=== PATIENT | male | born 1940 | race Caucasian/White ===

== ENCOUNTER 2016-03-09 14:20 | Inpatient (IN) ==
[2016-03-09] MEDS ORDERED: ROCEPHIN 1 GM in SODIUM CHLORIDE 50 ML IV STA (14:31)
[2016-03-09] MEDS ORDERED: ZITHROMAX 500 MG in SODIUM CHLORIDE 250 ML IV STA (14:31)
[2016-03-09 14:35] LABS: ABG PCO2 30.5 mmHg (35-45); ABG PH 7.467 (7.35-7.45)
[2016-03-09 14:36] LABS: ABG BASE EXCESS -2 (-2.0-2.0); ABG HCO3 22.1 (22.0-26.0); ABG TCO2 23 (22.0-28.0)
[2016-03-09] MEDS ORDERED: DUONEB NEB ONE (14:39)
[2016-03-09] MEDS: SODIUM CHLORIDE 1,000 ML IV SCH (14:50)
[2016-03-09] MEDS ORDERED: SOLU-CORTEF 250 MG IVP STA (14:51)
[2016-03-09 14:55] LABS: HEMATOCRIT 47.1 % (42.0-52.0); HEMOGLOBIN 15.6 g/dl (14.0-18.0); MEAN CORPUSCULAR HEMOGLOBIN 27.5 pg (27.0-31.0); MEAN CORPUSCULAR HGB CONC 33.1 (31.8-35.4); MEAN CORPUSCULAR VOLUME 82.9 fl (80.0-94.0); RED BLOOD COUNT 5.68 10^6/ul (4.70-6.10); WHITE BLOOD COUNT 17.04 K/ul (4.2-10.2)
[2016-03-09] MEDS ORDERED: ZOFRAN 4 MG/2 ML IVP PRN (15:12)
[2016-03-09] MEDS ORDERED: MORPHINE 2 MG/ML SYRINGE IVP PRN (15:12)
[2016-03-09 15:19] LABS: ALBUMIN 3.6 g/dL (3.4-5.0); ALBUMIN/GLOBULIN RATIO 1.06; ANION GAP 15.7; BILIRUBIN,TOTAL 0.68 mg/dL (0.00-1.20); BUN/CREATININE RATIO 23.63; CREATININE 1.1 mg/dL (0.60-1.10); POTASSIUM 3.7 mmol/L (3.5-5.1)
[2016-03-09] MEDS: SOLU-MEDROL 125 MG IVP SCH ×2 (15:24→22:24)
[2016-03-09 15:30] LABS: ABG BASE EXCESS -1 (-2.0-2.0); ABG HCO3 23.6 (22.0-26.0); ABG PCO2 36.8 mmHg (35-45); ABG PH 7.415 (7.35-7.45); ABG TCO2 25 (22.0-28.0)
[2016-03-09] MEDS: DUONEB NEB SCH ×3 (15:47→22:23)
[2016-03-09 15:51] VITALS: BMI 24.6
--- NOTE | 2016-03-09 16:39 | CT ---
EXAM: CT THORAX HISTORY: Hypoxemia, shortness of breath. TECHNIQUE: CT thorax without intravenous contrast. 5-mm axial sections. Coronal and sagittal re-fo rmations. COMPARISON: 11/15/2015 FINDINGS: Heart size is within normal limits. There is mild to moderate atherosclerotic disease. Scattered m ediastinal lymph nodes most which are calcified. Moderately severe emphysema. Severe basilar fibrosis with bronchiectasis. There has been an increas e in density in the lower lung zones posteriorly suggesting superimposed pneumonia. The aforemention ed right upper lobe ground-glass nodule is less distinct with no solid nature currently seen. Middl e lobe consolidation remains present without noticeable change. No acute bony abnormality IMPRESSION: Severe emphysema and fibrosis are redemonstrated. Increased density in the bases when c ompared to prior suggesting superimposed pneumonia. Persistent right middle lobe consolidation.
[2016-03-09 16:46] LABS: FLU INTERNAL QC INTERNAL QC VALID; RAPID FLU A NEGATIVE (NEGATIVE); RAPID FLU B NEGATIVE (NEGATIVE)
[2016-03-09 17:24] LABS: BILIRUBIN,URINE Negative (NEGATIVE); KETONES,URINE 1+ (NEGATIVE); LEUKOCYTE ESTERASE ,URINE Negative (NEGATIVE); NITRITE,URINE Negative (NEGATIVE); PH,URINE 5.5 (5-9); PROTEIN,URINE Negative (NEGATIVE); URINE, BLOOD Negative (NEGATIVE)
[2016-03-09 17:26] LABS: ADD URINE MICROSCOPIC NO
[2016-03-09] MEDS: PROTONIX IV 40 MG in SODIUM CHLORIDE 100 ML IV SCH (19:03)
[2016-03-09] MEDS: ASPIRIN EC PO SCH (21:40)
[2016-03-09] MEDS: CATAPRES PO SCH (21:40)
[2016-03-09] MEDS: NORVASC PO SCH (21:40)
[2016-03-09] MEDS: ALLEGRA PO SCH (21:40)
[2016-03-10] MEDS: DUONEB NEB SCH ×6 (02:13→23:20)
[2016-03-10] MEDS: LASIX TAB PO SCH (05:41)
[2016-03-10] MEDS: PROTONIX PO SCH (05:41)
[2016-03-10] MEDS: SOLU-MEDROL 125 MG IVP SCH ×3 (05:41→20:48)
[2016-03-10 06:41] LABS: ABG BASE EXCESS -6 (-2.0-2.0); ABG HCO3 19.1 (22.0-26.0); ABG PCO2 33.6 mmHg (35-45); ABG PH 7.363 (7.35-7.45); ABG TCO2 20 (22.0-28.0)
[2016-03-10] MEDS: XANAX PO SCH ×2 (08:21→12:38)
[2016-03-10] MEDS: BENICAR PO SCH (08:57)
[2016-03-10] MEDS: ALLEGRA PO SCH (08:57)
[2016-03-10] MEDS: LEXAPRO PO SCH (08:57)
[2016-03-10] MEDS: CATAPRES PO SCH ×2 (08:58→20:48)
[2016-03-10] MEDS: NORVASC PO SCH ×2 (08:58→20:48)
[2016-03-10] MEDS: MIRALAX PO SCH (08:59)
[2016-03-10] MEDS: PROTONIX IV 40 MG in SODIUM CHLORIDE 100 ML IV SCH (08:59)
[2016-03-10] MEDS ORDERED: [UNRECOGNIZED DRUG - REMARK] PO SCH (09:00)
[2016-03-10] MEDS ORDERED: NON-FORMULARY MEDICATION (Olmesartan Medoxomil [Benicar] 40 MG) PO SCH ×22 (09:00)
[2016-03-10] MEDS ORDERED: NON-FORMULARY MEDICATION (Esomeprazole Magnesium [Nexium] 40 MG) PO SCH ×22 (09:00)
[2016-03-10] MEDS: ROCEPHIN 1 GM in SODIUM CHLORIDE 50 ML IV SCH (10:38)
[2016-03-10] MEDS: SPIRIVA IH SCH (10:38)
[2016-03-10] MEDS: ZITHROMAX 500 MG in SODIUM CHLORIDE 250 ML IV SCH (11:50)
[2016-03-10 12:27] LABS: BASOPHILS % (AUTO) 0.1 % (0.0-3.0); HEMATOCRIT 41.3 % (42.0-52.0); HEMOGLOBIN 13.5 g/dl (14.0-18.0); IMMATURE GRANULOCYTE % (AUTO) 0.6 % (0.0-5.0); LYMPHOCYTES # (AUTO) 0.3 K/uL (0.60-3.4); LYMPHOCYTES % (AUTO) 2.3 (10.0-50.0); MEAN CORPUSCULAR HEMOGLOBIN 27.4 pg (27.0-31.0); MEAN CORPUSCULAR HGB CONC 32.7 (31.8-35.4); MEAN CORPUSCULAR VOLUME 83.9 fl (80.0-94.0); MONOCYTES # (AUTO) 0.3 K/uL (0.4-2.0); NEUTROPHILS # (AUTO) 13.5 K/ul (2.0-6.9); PLATELET COUNT 169 10^3/uL (140-440); RED BLOOD COUNT 4.92 10^6/ul (4.70-6.10); WHITE BLOOD COUNT 14.17 K/ul (4.2-10.2)
[2016-03-10 12:45] LABS: ALBUMIN/GLOBULIN RATIO 0.94; ANION GAP 16.9; BILIRUBIN,TOTAL 0.33 mg/dL (0.00-1.20); BUN/CREATININE RATIO 23.66; CALCIUM 8.6 mg/dL (8.2-10.2); CREATININE 1.31 mg/dL (0.60-1.10); POTASSIUM 3.9 mmol/L (3.5-5.1); TOTAL PROTEIN 6.2 g/dL (5.8-8.1)
[2016-03-10] MEDS: NON-FORMULARY MEDICATION (Fluticasone/Vilanterol [Breo Ellipta 100-25 Mcg Inh] 1 PUFF) IH SCH (13:59)
[2016-03-10] MEDS: SODIUM CHLORIDE 1,000 ML IV SCH (17:36)
[2016-03-10] MEDS: ASPIRIN EC PO SCH (20:48)
[2016-03-11] MEDS: DUONEB NEB SCH ×6 (02:30→22:43)
[2016-03-11] MEDS: SOLU-MEDROL 125 MG IVP SCH ×3 (06:21→20:14)
[2016-03-11] MEDS: LASIX TAB PO SCH (06:22)
[2016-03-11] MEDS: PROTONIX PO SCH (06:22)
[2016-03-11 06:40] LABS: BASOPHILS % (AUTO) 0.1 % (0.0-3.0); HEMOGLOBIN 13.2 g/dl (14.0-18.0); IMMATURE GRANULOCYTE % (AUTO) 0.8 % (0.0-5.0); LYMPHOCYTES # (AUTO) 0.6 K/uL (0.60-3.4); LYMPHOCYTES % (AUTO) 3.1 (10.0-50.0); MEAN CORPUSCULAR HEMOGLOBIN 27.4 pg (27.0-31.0); MEAN CORPUSCULAR VOLUME 83.2 fl (80.0-94.0); MONOCYTES # (AUTO) 0.5 K/uL (0.4-2.0); MONOCYTES % (AUTO) 2.7 (0-10); NEUTROPHILS # (AUTO) 16.5 K/ul (2.0-6.9); NEUTROPHILS % (AUTO) 93.3; PLATELET COUNT 186 10^3/uL (140-440); RED BLOOD COUNT 4.81 10^6/ul (4.70-6.10); WHITE BLOOD COUNT 17.67 K/ul (4.2-10.2)
[2016-03-11 07:08] LABS: ALBUMIN/GLOBULIN RATIO 0.97; ANION GAP 13.2; BILIRUBIN,TOTAL 0.37 mg/dL (0.00-1.20); BUN/CREATININE RATIO 23.07; CALCIUM 8.8 mg/dL (8.2-10.2); CREATININE 1.17 mg/dL (0.60-1.10); POTASSIUM 4.2 mmol/L (3.5-5.1); TOTAL PROTEIN 6.1 g/dL (5.8-8.1)
[2016-03-11] MEDS: MIRALAX PO SCH (08:15)
[2016-03-11] MEDS: LEXAPRO PO SCH (09:39)
[2016-03-11] MEDS: BENICAR PO SCH (09:39)
[2016-03-11] MEDS: NORVASC PO SCH ×2 (09:39→20:14)
[2016-03-11] MEDS: CATAPRES PO SCH ×2 (09:39→20:15)
[2016-03-11] MEDS: XANAX PO SCH ×2 (09:39→12:54)
[2016-03-11] MEDS: ROCEPHIN 1 GM in SODIUM CHLORIDE 50 ML IV SCH (09:40)
[2016-03-11] MEDS: SPIRIVA IH SCH (09:40)
[2016-03-11] MEDS: NON-FORMULARY MEDICATION (Fluticasone/Vilanterol [Breo Ellipta 100-25 Mcg Inh] 1 PUFF) IH SCH ×2 (09:40→16:35)
[2016-03-11] MEDS: PROTONIX IV 40 MG in SODIUM CHLORIDE 100 ML IV SCH (10:29)
[2016-03-11] MEDS: ZITHROMAX 500 MG in SODIUM CHLORIDE 250 ML IV SCH (11:41)
[2016-03-11] MEDS: SODIUM CHLORIDE 1,000 ML IV SCH (15:46)
[2016-03-11] MEDS: ASPIRIN EC PO SCH (20:16)
[2016-03-12] MEDS: DUONEB NEB SCH ×6 (02:35→21:00)
[2016-03-12 04:48] LABS: BASOPHILS % (AUTO) 0.1 % (0.0-3.0); HEMATOCRIT 38.4 % (42.0-52.0); HEMOGLOBIN 12.7 g/dl (14.0-18.0); IMMATURE GRANULOCYTE % (AUTO) 0.6 % (0.0-5.0); LYMPHOCYTES # (AUTO) 0.4 K/uL (0.60-3.4); LYMPHOCYTES % (AUTO) 3.1 (10.0-50.0); MEAN CORPUSCULAR HEMOGLOBIN 27.7 pg (27.0-31.0); MEAN CORPUSCULAR HGB CONC 33.1 (31.8-35.4); MEAN CORPUSCULAR VOLUME 83.7 fl (80.0-94.0); MONOCYTES # (AUTO) 0.4 K/uL (0.4-2.0); MONOCYTES % (AUTO) 2.5 (0-10); NEUTROPHILS % (AUTO) 93.7; PLATELET COUNT 168 10^3/uL (140-440); RED BLOOD COUNT 4.59 10^6/ul (4.70-6.10); WHITE BLOOD COUNT 13.87 K/ul (4.2-10.2)
[2016-03-12 05:11] LABS: ALBUMIN 2.7 g/dL (3.4-5.0); ANION GAP 11.6; BILIRUBIN,TOTAL 0.36 mg/dL (0.00-1.20); BUN/CREATININE RATIO 25.74; CALCIUM 8.7 mg/dL (8.2-10.2); CREATININE 1.01 mg/dL (0.60-1.10); POTASSIUM 4.6 mmol/L (3.5-5.1); TOTAL PROTEIN 5.4 g/dL (5.8-8.1)
[2016-03-12] MEDS: SOLU-MEDROL 125 MG IVP SCH ×3 (05:39→21:32)
[2016-03-12] MEDS: PROTONIX PO SCH (05:39)
[2016-03-12] MEDS: LASIX TAB PO SCH (05:39)
[2016-03-12] MEDS: PROTONIX IV 40 MG in SODIUM CHLORIDE 100 ML IV SCH (08:15)
[2016-03-12] MEDS: LEXAPRO PO SCH (08:16)
[2016-03-12] MEDS: BENICAR PO SCH (08:16)
[2016-03-12] MEDS: MIRALAX PO SCH (08:16)
[2016-03-12] MEDS: XANAX PO SCH ×2 (08:16→12:43)
[2016-03-12] MEDS: CATAPRES PO SCH ×2 (08:16→21:31)
[2016-03-12] MEDS: NORVASC PO SCH ×2 (08:16→21:31)
[2016-03-12] MEDS: SPIRIVA IH SCH (08:25)
[2016-03-12] MEDS: ROCEPHIN 1 GM in SODIUM CHLORIDE 50 ML IV SCH (09:45)
[2016-03-12] MEDS: SODIUM CHLORIDE 1,000 ML IV SCH (12:11)
--- NOTE | 2016-03-12 12:59 | PN ---
DATE OF SERVICE: 03/11/16 SUBJECTIVE: The patient is a 75 year old white male hospitalized with pneumonia and acute respiratory failure. The patient's condition has improved. He has been eating better, been walking around but any exertion or walking causes severe hypoxemia. The patient doesn't have any symptoms of congestive heart failure and in fact his BNP is 27 and D-dimer was borderline but negative. REVIEW OF SYSTEMS: At rest CONSTITUTIONAL: No night sweats. No fatigue, malaise, lethargy. No fever or chills. HEENT: Eyes: No visual changes. No eye pain. No eye discharge. ENT: No runny nose. No epistaxis. No sinus pain. No sore throat. No odynophagia. No congestion. RESPIRATORY: No cough, no congestion. No hemoptysis. CARDIOVASCULAR: No angina symptoms. No CHF symptoms. No atypical chest pain for CAD. No palpitations. With little exertion the patient gets shortness of breath. No PND. No orthopnea. GASTROINTESTINAL: No abdominal pain. No nausea or vomiting. No diarrhea or constipation. No hematemesis. No hematochezia. Appetite has improved. GENITOURINARY: No urgency. No frequency. No dysuria. No hematuria. No obstructive symptoms. No discharge. No pain. No significant abnormal bleeding. MUSCULOSKELETAL: No musculoskeletal pain; no joint swelling. NEUROLOGICAL: No headache. No neck pain. No syncope. No seizures. No dizziness. PSYCHIATRIC: Not anxious. No depression. No suicidal thoughts. No homicidal thoughts. SKIN: No rash. No lesions. No wounds. ENDOCRINE: No unexplained weight loss. No weight gain. HEMATOLOGIC/LYMPHATIC: No anemia. No purpura. No petechiae. No prolonged or excessive bleeding. No palpable lymph nodes. PHYSICAL EXAMINATION: GENERAL: The patient is oriented to time, place and person. VITAL SIGNS: Temperature 97.6, pulse 95 per minute, respiratory rate 20, blood pressure 147/72 and pulse ox 93%. HEENT: Head normocephalic, atraumatic. Eyes: Extraocular muscles are intact. Pupils are equal, round and reactive to light and accommodation. Ears: No lesions. Nose appeared normal. Throat: No exudate or erythema. NECK: Supple. No JVP, no carotid bruit. No lymphadenopathy or thyromegaly. LUNGS: Decreased breath sounds but clear to auscultation. Percussion note normal. Chest symmetrical. HEART: S1, S2, no S3. No murmurs. No cyanosis or clubbing. No ascites. Pulses: Dorsalis pedis and posterior tibial pulses +1 to +2 both sides. ABDOMEN: Soft. Nontender. Bowel sounds active. No CVA tenderness. No mass felt. EXTREMITIES: No edema. Full range of motion of all extremities, equal. NEUROLOGIC: No focal deficit. Cranial nerves II through XII are grossly intact. No headache, no double vision or headache. SKIN: Not dry. Intact. Turgor - normal. LYMPHATIC: No palpable lymph nodes/no lymphedema. MUSCULOSKELETAL: Normal joints with no swelling. Muscle tone is normal. LABS: Hgb 13.2, hct 40, WBC 17,000 normal differentials, creatinine 1.1, BUN 27, potassium 4.2, d-dimer negative and BNP 27. ASSESSMENT: 1. Acute respiratory failure which has become chronic, patient oxygen saturation is a lot better with 2-3 liters it's 93%. 2. Cardiovascular status is stable. 3. Hydration status has improved. PLAN: 1. Continue IV antibiotics steroids 2. Continue NEBS treatment 3. Pulmonary exercises discussed 4. Been encouraged to continue pulmonary rehab 5. Will do echocardiogram to evaluate LV contractility and cardiovascular status. The patient has history of coronary artery disease. CONDITION: Stable TIME SPENT: More than 30 minutes. Plan and coordination of the patient's care discussed in the presence of nurse. NITIN
[2016-03-12] MEDS ORDERED: KETOTIFEN FUMARATE EACHEYE PRN (13:29)
[2016-03-12] MEDS: NON-FORMULARY MEDICATION (Fluticasone/Vilanterol [Breo Ellipta 100-25 Mcg Inh] 1 PUFF) IH SCH (17:59)
[2016-03-12] MEDS: OCEAN NASAL SPRAY NAS PRN ×2 (18:37→21:32)
[2016-03-12] MEDS: ASPIRIN EC PO SCH (21:31)
[2016-03-13] MEDS: DUONEB NEB SCH ×6 (01:17→21:05)
[2016-03-13 04:51] LABS: HEMATOCRIT 39.6 % (42.0-52.0); HEMOGLOBIN 13.1 g/dl (14.0-18.0); IMMATURE GRANULOCYTE % (AUTO) 1.2 % (0.0-5.0); LYMPHOCYTES # (AUTO) 0.5 K/uL (0.60-3.4); LYMPHOCYTES % (AUTO) 4.8 (10.0-50.0); MEAN CORPUSCULAR HEMOGLOBIN 27.4 pg (27.0-31.0); MEAN CORPUSCULAR HGB CONC 33.1 (31.8-35.4); MEAN CORPUSCULAR VOLUME 82.8 fl (80.0-94.0); MONOCYTES # (AUTO) 0.4 K/uL (0.4-2.0); MONOCYTES % (AUTO) 4.3 (0-10); NEUTROPHILS # (AUTO) 8.4 K/ul (2.0-6.9); NEUTROPHILS % (AUTO) 89.7; PLATELET COUNT 172 10^3/uL (140-440); RED BLOOD COUNT 4.78 10^6/ul (4.70-6.10); WHITE BLOOD COUNT 9.36 K/ul (4.2-10.2)
[2016-03-13 05:13] LABS: ALBUMIN 2.7 g/dL (3.4-5.0); ALBUMIN/GLOBULIN RATIO 0.93; ANION GAP 11.5; BILIRUBIN,TOTAL 0.38 mg/dL (0.00-1.20); BUN/CREATININE RATIO 22.68; CALCIUM 8.4 mg/dL (8.2-10.2); CREATININE 0.97 mg/dL (0.60-1.10); POTASSIUM 4.5 mmol/L (3.5-5.1); TOTAL PROTEIN 5.6 g/dL (5.8-8.1)
[2016-03-13] MEDS: LASIX TAB PO SCH (05:32)
[2016-03-13] MEDS: PROTONIX PO SCH (05:32)
[2016-03-13] MEDS: SOLU-MEDROL 125 MG IVP SCH ×3 (05:51→21:21)
[2016-03-13] MEDS: PROPYLENE GLYCOL EACHEYE PRN ×2 (05:57→08:15)
[2016-03-13] MEDS: CATAPRES PO SCH ×2 (08:15→21:22)
[2016-03-13] MEDS: BENICAR PO SCH (08:15)
[2016-03-13] MEDS: LOVENOX SUBCUT SCH (08:15)
[2016-03-13] MEDS: NORVASC PO SCH ×2 (08:15→21:25)
[2016-03-13] MEDS: LEXAPRO PO SCH (08:15)
[2016-03-13] MEDS: XANAX PO SCH ×2 (08:15→12:01)
[2016-03-13] MEDS: PROTONIX IV 40 MG in SODIUM CHLORIDE 100 ML IV SCH (08:16)
[2016-03-13] MEDS: MIRALAX PO SCH (08:16)
[2016-03-13] MEDS: SPIRIVA IH SCH (08:18)
[2016-03-13] MEDS: ROCEPHIN 1 GM in SODIUM CHLORIDE 50 ML IV SCH (09:21)
--- NOTE | 2016-03-13 09:59 | CT ---
EXAM: CT THORAX HISTORY: Shortness of breath, pneumonia. TECHNIQUE: CT thorax without intravenous contrast. 5-mm axial sections. Coronal and sagittal re-fo rmations. COMPARISON: 03/09/2016 FINDINGS: Heart size within normal limits. Mild to moderate atherosclerotic disease. Scattered mediastinal l ymph nodes, most which are calcified. Moderately severe emphysema. Severe basilar fibrosis with bronchiectasis. Redemonstration of scarr ing or chronic atelectasis within the middle lobe. Discoid opacities in the bases appear slightly w orsened. This could indicate fibrosis with worsening pneumonia or atelectasis. Stable appearance of the bones. IMPRESSION: Discoid opacities in the bases appear slightly worsened. This could indicate fibrosis with superimposed worsening pneumonia or greater atelectasis.
--- NOTE | 2016-03-13 10:11 | PN ---
DATE OF SERVICE: 03/10/16 SUBJECTIVE: The patient is 75 year old white male hospitalized with acute respiratory failure. The patient's pO2 was less than 50 with oxygen saturation of 83-85% on room air with respiratory distress. The patient was put on the special care. This morning the patient is feeling a lot better sitting in the chair with 3 liters of oxygen with oxygen saturation at more than 92%. The patient is laughing, cutting up and talking with the family and me. REVIEW OF SYSTEMS: CONSTITUTIONAL: No night sweats. No fatigue, malaise, lethargy. No fever or chills. HEENT: Eyes: No visual changes. No eye pain. No eye discharge. ENT: No runny nose. No epistaxis. No sinus pain. No sore throat. No odynophagia. No congestion. RESPIRATORY: Mild cough, no congestion. No hemoptysis. CARDIOVASCULAR: No angina symptoms. No CHF symptoms. No atypical chest pain for CAD. No palpitations. No shortness of breath. GASTROINTESTINAL: No abdominal pain. No nausea or vomiting. No diarrhea or constipation. No hematemesis. No hematochezia. GENITOURINARY: No urgency. No frequency. No dysuria. No hematuria. No obstructive symptoms. No discharge. No pain. No significant abnormal bleeding. MUSCULOSKELETAL: No musculoskeletal pain; no joint swelling. NEUROLOGICAL: No headache. No neck pain. No syncope. No seizures. No dizziness. PSYCHIATRIC: Not anxious. No depression. No suicidal thoughts. No homicidal thoughts. SKIN: No rash. No lesions. No wounds. ENDOCRINE: No unexplained weight loss. No weight gain. HEMATOLOGIC/LYMPHATIC: No anemia. No purpura. No petechiae. No prolonged or excessive bleeding. No palpable lymph nodes. PHYSICAL EXAMINATION: GENERAL: The patient is oriented to time, place and person. VITAL SIGNS: Temperature 97.2, pulse 90, respiratory 18, blood pressure 119/58 and pulse ox 95%. HEENT: Head normocephalic, atraumatic. Eyes: Extraocular muscles are intact. Pupils are equal, round and reactive to light and accommodation. Ears: No lesions. Nose appeared normal. Throat: No exudate or erythema. NECK: Supple. No JVP, no carotid bruit. No lymphadenopathy or thyromegaly. LUNGS: Decreased breath sounds but clear to auscultation with no wheeze. Percussion note normal. Chest symmetrical. HEART: S1, S2, no S3. No murmurs. No cyanosis or clubbing. No ascites. Pulses: Dorsalis pedis and posterior tibial pulses +1 to +2 both sides. ABDOMEN: Soft. Nontender. Bowel sounds active. No CVA tenderness. No mass felt. EXTREMITIES: No edema. Full range of motion of all extremities, equal. NEUROLOGIC: No focal deficit. Cranial nerves II through XII are grossly intact. No headache, no double vision or headache. SKIN: Not dry. Intact. Turgor - normal. LYMPHATIC: No palpable lymph nodes/no lymphedema. MUSCULOSKELETAL: Normal joints with no swelling. Muscle tone is normal. LABS: Hgb 15.6, hct 47, WBC 17,000 normal differential, creatinine 1.1, BUN 26, potassium 3.7, D-dimer normal and BNP normal. The patient's ABG seen on 55% of Venturi mask with pO2 85, pCO2 of 35, pH 7.38 with oxygen saturation of 96%. The patient's oxygen saturation on 2-3 liters is 91%. Telemetry, sinus rhythm no acute changed, EKG sinus rhythm no acute changes. ASSESSMENT: 1. Acute respiratory failure, resolved and cardiovascular status stable 3. Hypertension, stable PLAN: 1. The same medications, Continue Rocephin, Azithromycin and Cait 2. Antireflux measures discussed and advised to continue Pulmonary rehab 3. Pulmonary exercises discussed. CONDITION: Stable TIME SPENT: More than 30 minutes. Plan and coordination of the patient's care discussed in the presence of nurse. NITIN
--- NOTE | 2016-03-13 10:25 | PN ---
DATE OF SERVICE: 03/12/16 SUBJECTIVE: The patient is a 75 year old male hospitalized with acute respiratory failure, hypoxemia and pneumonia. The patient's condition has steadily improved. He still gets hypoxic on very little exertion. REVIEW OF SYSTEMS: At rest all negative but will little exertion CONSTITUTIONAL: No night sweats. No fatigue, malaise, lethargy. No fever or chills. HEENT: Eyes: No visual changes. No eye pain. No eye discharge. ENT: No runny nose. No epistaxis. No sinus pain. No sore throat. No odynophagia. No congestion. RESPIRATORY: No cough, no congestion. No hemoptysis. CARDIOVASCULAR: No angina symptoms. No CHF symptoms. No atypical chest pain for CAD. No palpitations. Shortness of breath. GASTROINTESTINAL: No abdominal pain. No nausea or vomiting. No diarrhea or constipation. No hematemesis. No hematochezia. Appetite has improved. GENITOURINARY: No urgency. No frequency. No dysuria. No hematuria. No obstructive symptoms. No discharge. No pain. No significant abnormal bleeding. MUSCULOSKELETAL: No musculoskeletal pain; no joint swelling. NEUROLOGICAL: No headache. No neck pain. No syncope. No seizures. No dizziness. PSYCHIATRIC: Not anxious. No depression. No suicidal thoughts. No homicidal thoughts. SKIN: No rash. No lesions. No wounds. ENDOCRINE: No unexplained weight loss. No weight gain. HEMATOLOGIC/LYMPHATIC: No anemia. No purpura. No petechiae. No prolonged or excessive bleeding. No palpable lymph nodes. PHYSICAL EXAMINATION: GENERAL: The patient is oriented to time, place and person. VITAL SIGNS: Temperature 97, pulse 98, respiratory 20, blood pressure 146/74 and pulse ox 94. HEENT: Head normocephalic, atraumatic. Eyes: Extraocular muscles are intact. Pupils are equal, round and reactive to light and accommodation. Ears: No lesions. Nose appeared normal. Throat: No exudate or erythema. NECK: Supple. No JVD, no carotid bruit. No lymphadenopathy or thyromegaly. LUNGS: Decreased breath sound with mild wheeze. Clear to auscultation. Percussion note normal. Chest symmetrical. HEART: S1, S2, no S3. No murmurs. No cyanosis or clubbing. No ascites. Pulses: Dorsalis pedis and posterior tibial pulses +1 to +2 both sides. ABDOMEN: Soft. Nontender. Bowel sounds active. No CVA tenderness. No mass felt. EXTREMITIES: No edema. Full range of motion of all extremities, equal. NEUROLOGIC: No focal deficit. Cranial nerves II through XII are grossly intact. No headache, no double vision or headache. SKIN: Not dry. Intact. Turgor - normal. LYMPHATIC: No palpable lymph nodes/no lymphedema. MUSCULOSKELETAL: Normal joints with no swelling. Muscle tone is normal. LABS: hgb 12.7, hct 38, WBC 13,000 normal differential, creatinine 1, BUN 26, potassium 4.6, BNP 27, D-dimer negative. ASSESSMENT: 1. Acute respiratory failure 2. Pneumonia 3. Severe chronic lung disease 4. Coronary artery disease with stent 5. Dyslipidemia PLAN: 1. Continue Steroids 2. Continue IV antibiotics 3. CT scan of the chest repeat tomorrow 4. Advised to be up and about and walking 5. Echocardiogram was done this morning which showed normal LV contractility and normal valve. CONDITION: Stable, improving. TIME SPENT: More than 30 minutes. Plan and coordination of the patient's care discussed in the presence of nurse. NITIN
[2016-03-13] MEDS: MUCINEX PO SCH ×2 (11:04→21:25)
--- NOTE | 2016-03-13 11:19 | ECHO2D ---
Date of Exam: 03/12/16 Ordering Physician: LARRY LA Reason for Echo: SOB, HYPOXEMIA, CAD, CHEST PAIN M-Mode Normal Adult Results LV Dimensions Normal Adult Results AoV Opening excursions >1.6 >1.6 LVEDD-base- 3.5-5.8 4.4 Ao root dimensions 2.0-3.7 3.2 LVESD-base- 3.1-4.6 L. Atrium dimensions 1.9-3.8 3.9 Post. Wall thickness 0.8-1.1 1.1 IV septum (thickness) 0.7-1.2 1.1 Post. Wall excursion 0.72-1.3 NORMAL Septal motion 3.0 Systolic motion R. Ventricular cavity 1.5-2.0 NORMAL LVEF 60% 67% Paradoxical septal wall motion NORMAL 2-D : 2-D M Mode Echocardiogram was performed using apical four chamber and left parasternal long and short axis views. Mitral, tricuspid and aortic valves appear to be normal. Contractility of the left ventricle seems to be normal, so is the cavity size. Left atrial cavity size and aortic root appear to be normal. There is no pericardial effusion. There is no thrombus noted in the left ventricular or left aortic cavity. No mitral valve prolapse noted. M-MODE: MV: NORMAL AV: NORMAL TV: NORMAL PV: CHAMBER SIZE: RIGHT VENTRICLE CAVITY ENLARGEMENT WALL MOTION: NORMAL PERICARDIUM: NORMAL INTERPRETATION: 1. ENLARGEMENT OF RIGHT VENTRICLE CAVITY 2. NORMAL LEFT VENTRICULAR CONTRACTILITY 3. NORMAL VALVES MTDD
--- NOTE | 2016-03-13 13:00 | PCM.PROG ---
Attending Provider: ATTENDING PROVIDER: Dr. LARRY LA DATE OF SERVICE: 03/13/16 SUBJECTIVE: This 75 year old WHITE/ M was hospitalized 03/09/16. The patient was admitted with hypoxemia. The patient states he is doing a little better today. He says he is not coughing as much. Discussed with the patient that his echocardiogram was normal. He still has shortness of breath on minimal exertion ; sats dropping to 80s. No fever, no chills. No PND, no orthopnea. REVIEW OF SYSTEMS: CONSTITUTIONAL: No fever, no chills. ENDOCRINE: No weight loss or weight gain. HEENT: No sinus drainage, no sore throat. CVS: No angina symptoms. No CHF symptoms. No palpitations. No atypical chest pain for CAD. Shortness of breath. RESPIRATORY: Less cough, no hemoptysis. GI: No melena. No abdominal pain. No nausea, no vomiting. : No hematuria. No polyuria. SKIN: No rash. No wounds. MUSCULOSKELETAL: No pain. MEDIA RELATIONS COORDINATOR: No blackout, no dizziness. No headache. No double vision. PSYCHIATRIC: Not anxious; no depression. No suicidal thoughts. No homicidal thoughts. PHYSICAL EXAMINATION: GENERAL: Lying in bed in no distress. VITAL SIGNS: Temperature 97.8 F, Pulse 91, Respiratory Rate 16, BP 154/76, Pulse Ox 92% HEENT: Normocephalic, atraumatic. Mucosa is dry, pallor positive. NECK: No JVP, no carotid bruit. No lymphadenopathy. CARDIAC: S1, S2, no S3. No murmur, gallop or regurgitation. LUNGS: Clear to auscultation. ABDOMEN: Soft, non-tender. Bowel sounds active. No rigidity, guarding or CVA tenderness. EXTREMITIES: No clubbing, cyanosis or edema. NEUROLOGIC: Awake, alert and oriented x3. LYMPHATIC: No palpable lymph nodes SKIN: Not dry. Intact. MUSCULOSKELETAL: No joint swelling. LAB REVIEW: 03/13/16 04:49 03/13/16 04:49 03/13/16 04:49: WBC 9.36, RBC 4.78, Hgb 13.1 L, Hct 39.6 L, MCV 82.8, MCH 27.4, MCHC 33.1, RDW Coeff of Bhaskar 18.1 H, Plt Count 172, Immature Gran % (Auto) 1.2, Neut % (Auto) 89.7, Lymph % (Auto) 4.8 L, Butts % (Auto) 4.3, Eos % (Auto) 0.0, Baso % (Auto) 0.0, Immature Gran # (Auto) 0.1, Neut # 8.4 H, Lymph # 0.5 L, Butts # 0.4, Eos # 0.0, Baso # 0.0, Sodium 134 L, Potassium 4.5, Chloride 103, Carbon Dioxide 24, Anion Gap 11.5, BUN 22 H, Creatinine 0.97, Estimated GFR ( MDRD) 75.00, BUN/Creatinine Ratio 22.68, Glucose 127 H, Calcium 8.4, Total Bilirubin 0.38, AST 21, ALT 18, Alkaline Phosphatase 43 L, Total Protein 5.6 L, Albumin 2.7 L, Globulin 2.9, Albumin/Globulin Ratio 0.93 ASSESSMENT: 1. 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 Hypoxemia secondary to above. 3. Hypertension 4. Dyslipidemia 5. Anxiety disorder PLAN: 1. Continue Rocephin, Solu-Medrol and Duonebs 2. I & Os 3. Stop IV fluids 4. Lovenox for DVT prophylaxis 5. Up and about 6. Stop fluids Plan and coordination of the patient's care discussed in the presence of [employer] and nurse. CONDITION: Stable SCRIBED BY: BEAR HOLLEY Director [employer] scribed while in presence of service performed by Dr. LARRY LA on 03/13/16 ([id number])
--- NOTE | 2016-03-13 13:52 | HP ---
DATE OF SERVICE: 03/09/16 REASON FOR HOSPITALIZATION: Headache, hurting all over. HISTORY OF PRESENT ILLNESS: This is a 75-year-old white male who presented with headache and hurting all over. He has a cough with yellow phlegm production. He has sinus drainage, clear to yellow and sore throat. He does not have any chest pain. Shortness of breath is present. REVIEW OF SYSTEMS: CONSTITUTIONAL: No fever, no fatigue. HEENT: Sinus drainage and sore throat. RESPIRATORY: Cough and congestion. No hemoptysis. CARDIOVASCULAR: Shortness of breath. No atypical chest pain for coronary artery disease. No angina, CHF symptoms or palpitations. GASTROINTESTINAL: No melena or abdominal pain. No GERD. GENITOURINARY: No hematuria, no prostatism, no polyuria. UTILITY AIDE: No blackout, no dizziness, no headache, no double vision. MUSCULOSKELETAL: Osteoarthritis pain. No joint swelling. ENDOCRINE: No weight loss, no weight gain. SKIN: Not dry, no rash. PSYCHIATRIC: Not anxious, no depression, no suicidal thoughts, no homicidal thoughts. PAST MEDICAL HISTORY: 1. Hypertension 2. Generalized anxiety disorder 3. Carotid artery disease with stent 4. Sleep apnea on 02 at .s. 5. Depression 6. History of H. Pylori 7. Severe DJD L-spine PAST SURGICAL HISTORY: 1. Status post gallbladder 2. Status post tonsillectomy SOCIAL HISTORY: The patient is . Nonsmoker. No alcohol use. FAMILY HISTORY: Not significant. MEDICATIONS: (Home) 1. Aspirin 81 mg p.o. bedtime 2. Tiotropium (Spiriva) two puff IH daily 3. Esomeprazole (Nexium) 40 mg p.o. daily 4. Furosemide (Lasix) 20 mg p.o. a.c. 5. Olmesartan (Benicar) 40 mg p.o. daily 6. Fluticasone/Vilanterol one puff IH daily 7. Clonidine 0.1 mg p.o. b.i.d. 8. Alprazolam 0.25 mg p.o. b.i.d. Breakfast and Lunch 9. Fexofenadine 180 mg p.o. daily 10. Polyethylene Glycol 17 gm p.o. daily 11. Escitalopram 10 mg p.o. daily 12. Amlodipine 5 mg p.o. daily 13. Ketofifen Fumarate one drop each eye b.i.d. p.r.n. 14. Propylene Glycol 1-2 drops each eye as directed p.r.n. ALLERGIES: IV DYE PHYSICAL EXAMINATION: V/S: Pulse 107, BP 152/78, temperature 98.6, 02 sat 83%. Height 6'0", weight 187 pounds. BMI 25.3. GENERAL APPEARANCE: Oriented times three. HEENT: Normal. Mucosa dry. NECK: No JVP, no bruits. RESPIRATORY: Decreased entry with basilar crackles. CARDIOVASCULAR: S1, S2, no S3, no murmurs. No cyanosis, clubbing. No ascites. GI/ABDOMEN: No tenderness. Bowel sounds are active. EXTREMITIES: No edema, pulses +1, equal. UTILITY AIDE: Deep tendon reflexes, sensory, motor and gait all normal. RECTAL/PROSTATE: Prostate 4.6 (Dr. Oconnor). 04/26 Dr. Jc MUNROE. ASSESSMENT: 1. HYPOXEMIA 2. URI, RULE OUT PNEUMONIA 3. HYPERTENSION 4. JOSE ALFREDO 5. CAD WITH STENT PLACEMENT 6. SLEEP APNEA ON 02 AT H.S. 7. DEPRESSION 8. HISTORY OF H. PYLORI 9. SEVERE DJD L-SPINE PLAN: Admit to regular floor with telemetry 1. CBC, CMP 2. BNP, D. dimer, 3. UA 4. ABG on room air 5. Rapid flu A & B 6. Strep 7. 02 on 2L/NC 8. Sputum culture 9. CT chest without contrast 10. IVF NS at 50 mL/hourly 11. Rocephin 1 gm IV daily 12. Azithromycin 500 mg IV daily 13. Duonebs q.i.d. 14. Solu-Medrol 80 mg IVP q.8hr 15. Continue home medications TIME SPENT: More than 70 minutes. MTDD
[2016-03-13] MEDS: ASPIRIN EC PO SCH (21:21)
[2016-03-13] MEDS ORDERED: SOLU-MEDROL 125 MG ONE (21:21)
[2016-03-14] MEDS: DUONEB NEB SCH ×3 (01:24→10:07)
[2016-03-14 05:23] LABS: BASOPHILS % (AUTO) 0.3 % (0.0-3.0); HEMATOCRIT 39.5 % (42.0-52.0); HEMOGLOBIN 13.1 g/dl (14.0-18.0); IMMATURE GRANULOCYTE % (AUTO) 1.2 % (0.0-5.0); LYMPHOCYTES # (AUTO) 0.5 K/uL (0.60-3.4); LYMPHOCYTES % (AUTO) 8.1 (10.0-50.0); MEAN CORPUSCULAR HEMOGLOBIN 27.5 pg (27.0-31.0); MEAN CORPUSCULAR HGB CONC 33.2 (31.8-35.4); MEAN CORPUSCULAR VOLUME 82.8 fl (80.0-94.0); MONOCYTES # (AUTO) 0.3 K/uL (0.4-2.0); MONOCYTES % (AUTO) 4.7 (0-10); NEUTROPHILS # (AUTO) 5.6 K/ul (2.0-6.9); NEUTROPHILS % (AUTO) 85.7; PLATELET COUNT 160 10^3/uL (140-440); RED BLOOD COUNT 4.77 10^6/ul (4.70-6.10); WHITE BLOOD COUNT 6.58 K/ul (4.2-10.2)
[2016-03-14] MEDS: PROTONIX PO SCH (05:37)
[2016-03-14] MEDS: LASIX TAB PO SCH (05:37)
[2016-03-14] MEDS ORDERED: SOLU-MEDROL 125 MG ONE (05:38)
[2016-03-14] MEDS: SOLU-MEDROL 125 MG IVP SCH (05:38)
[2016-03-14 05:44] LABS: ALBUMIN 2.6 g/dL (3.4-5.0); ALBUMIN/GLOBULIN RATIO 0.96; ANION GAP 12.4; BILIRUBIN,TOTAL 0.44 mg/dL (0.00-1.20); BUN/CREATININE RATIO 21.87; CALCIUM 8.3 mg/dL (8.2-10.2); CREATININE 0.96 mg/dL (0.60-1.10); POTASSIUM 4.4 mmol/L (3.5-5.1); TOTAL PROTEIN 5.3 g/dL (5.8-8.1)
[2016-03-14] MEDS: LOVENOX SUBCUT SCH (08:21)
[2016-03-14] MEDS: MUCINEX PO SCH (08:21)
[2016-03-14] MEDS: CATAPRES PO SCH (08:22)
[2016-03-14] MEDS: LEXAPRO PO SCH (08:22)
[2016-03-14] MEDS: MIRALAX PO SCH (08:22)
[2016-03-14] MEDS: BENICAR PO SCH (08:22)
[2016-03-14] MEDS: SPIRIVA IH SCH (08:23)
[2016-03-14] MEDS: NORVASC PO SCH (08:23)
[2016-03-14] MEDS: ROCEPHIN 1 GM in SODIUM CHLORIDE 50 ML IV SCH (08:27)
[2016-03-14] MEDS: XANAX PO SCH ×2 (08:27→11:28)
[2016-03-14] MEDS: NON-FORMULARY MEDICATION (Fluticasone/Vilanterol [Breo Ellipta 100-25 Mcg Inh] 1 PUFF) IH SCH (10:20)
[2016-03-14 10:22] VITALS: BP 140/80; TEMP 98.1
[2016-03-14] MEDS ORDERED: ATIVAN PO PRN (21:00)
--- NOTE | 2016-03-16 13:58 | DS ---
DATE OF SERVICE: 03/14/16 - SWING BED FINAL DIAGNOSIS: 1. COPD EXACERBATION SECONDARY TO BRONCHITIS AND PNEUMONIA PER CT SCAN 2. HYPOXEMIA SECONDARY TO COPD AND PNEUMONIA 3. HYPERTENSION 4. DYSLIPIDEMIA 5. ANXIETY DISORDER 6. CAD 7. STATUS POST STENT 20 YEARS AGO 8. SLEEP APNEA 9. GERD 10. OSTEOARTHRITIS 11. CKD STAGE 3 12. DEPRESSION 13. CHOLECYSTECTOMY 14. CARDIAC STENT 15. THERAPEUTIC PHLEBOTOMY DISCHARGE INSTRUCTIONS: 1. Discharge the patient to the Transitional Care Unit as the patient is still weak and has persistent pneumonia. 2. Physical Therapy/Occupational Therapy 3. IV antibiotics 4. PT/OT evaluate and treat 5. Daily I & O's 6. Keep legs elevated when resting MEDICATIONS AT DISCHARGE: The patient will be admitted to TCU with the followin. Rocephin 1 gm daily 2. Duonebs - steroids 3. Lovenox for DVT prophylaxis 4. Continue the rest of the home medications DIET INSTRUCTIONS: Cardiac and healthy ACTIVITY: As much as tolerated. PT/OT evaluate and treat. SMOKING: N/A DISEASE SPECIFIC EDUCATION: PNEUMONIA COPD HYPOXEMIA MEDICATIONS/CONTINUED ANTIBIOTICS PT/OT HOSPITAL COURSE: This is a 75-year-old male, who came to the office with shortness of breath, cough and congestion getting yellow-green phlegm. In the office, his saturation was 86, 81 on room air. With the cough, congestion and yellow phlegm , the patient was admitted to the hospital. ABGs were done which showed pH 7.46 , pc02 30.5, p02 37. The patient was put on the Venturi mask. The rest of the blood work, BNP was negative at 27. The first set of cardiac enzymes were negative. D. dimer was 4.17. The same day he had a CT of the chest done, which showed emphysema only, severe; increased density in the bases, questionable pneumonia superimposed and persistent right middle lobe consolidation. The patient was continued with his Rocephin, Azithromycin and IV Solu-Medrol. Gradually he started feeling better but he was still short of breath and hypoxic if he does any activity. ABGs got better with p02 58 and 86 and Venturi mask was weaned off and was put on 2L and 3L but with minimal exertion it was dropping into the 80s. At that time, again repeat CT scan was done which again showed pneumonia. At that time, TCU care was suggested with physical and occupational therapy which the patient opted for as he was still needing antibiotics. The patient was evaluated for that and qualified for occupational therapy and long-term antibiotics and care in the TCU. The patient was admitted to TCU. TIME SPENT: More than 45 minutes today NITIN
== END 2016-03-14 11:39 | disposition swing bed (61) | DRG 190 ==
LOC: MEDSURG B 14:20 → SCU 16:19
PROVIDERS: ADMIT Emergency Medicine; ATTEND Emergency Medicine
DX: J44.0 Chronic obstructive pulmonary disease with (acute) lower respiratory infection (principal); J18.9 Pneumonia, unspecified organism; J96.21 Acute and chronic respiratory failure with hypoxia; J20.9 Acute bronchitis, unspecified; J44.1 Chronic obstructive pulmonary disease with (acute) exacerbation; I12.9 Hypertensive chronic kidney disease with stage 1 through stage 4 chronic kidney disease, or unspecified chronic kidney disease; N18.3 Chronic kidney disease, stage 3 (moderate); E78.5 Hyperlipidemia, unspecified; I10 Essential (primary) hypertension; I25.10 Atherosclerotic heart disease of native coronary artery without angina pectoris; G47.30 Sleep apnea, unspecified; R51 Headache; F41.8 Other specified anxiety disorders; Z95.5 Presence of coronary angioplasty implant and graft; Z79.899 Other long term (current) drug therapy
CPT/HCPCS: 36415; 80053; 81001; 82803; 83880; 85025; 85027; 85379; 87070; 87651; 87804; 87880; 93005; 93010; 94150; 94640

== ENCOUNTER 2016-03-11 00:01 | Outpatient (RCR) ==
[2016-04-09 11:14] VITALS: BP 138/58
== END 2016-04-10 ==
LOC: CAR.REHAB 00:01
PROVIDERS: ATTEND Internal Medicine
DX: I25.810 Atherosclerosis of coronary artery bypass graft(s) without angina pectoris (principal); Z95.5 Presence of coronary angioplasty implant and graft
CPT/HCPCS: 93797

== ENCOUNTER 2016-03-14 11:47 | Inpatient (IN) ==
[2016-03-14 12:42] VITALS: BMI 24.5
[2016-03-14] MEDS ORDERED: OCEAN NASAL SPRAY NAS PRN (13:38)
[2016-03-14] MEDS ORDERED: ALBUTEROL 0.083% NEB NEB SCH (14:00)
[2016-03-14] MEDS ORDERED: DUONEB NEB ONE (14:03)
[2016-03-14] MEDS: SOLU-MEDROL 125 MG IVP SCH ×2 (15:27→20:12)
[2016-03-14] MEDS ORDERED: NON-FORMULARY MEDICATION (Fluticasone/Vilanterol [Breo Ellipta 100-25 Mcg Inh] 1 PUFF) IH SCH (17:00)
[2016-03-14] MEDS: DUONEB NEB SCH ×2 (18:20→22:50)
[2016-03-14] MEDS: NON-FORMULARY MEDICATION (Fluticasone/Vilanterol [Breo Ellipta 100-25 Mcg Inh] 1 PUFF) IH SCH (20:09)
[2016-03-14] MEDS: ATIVAN PO PRN (20:09)
[2016-03-14] MEDS: MUCINEX PO SCH (20:09)
[2016-03-14] MEDS: ASPIRIN EC PO SCH (20:10)
[2016-03-14] MEDS: NORVASC PO SCH (20:10)
[2016-03-14] MEDS: CATAPRES PO SCH (20:10)
[2016-03-15] MEDS: DUONEB NEB SCH ×5 (01:48→19:40)
[2016-03-15] MEDS: PROTONIX PO SCH (05:30)
[2016-03-15] MEDS: LASIX TAB PO SCH (05:30)
[2016-03-15 06:17] LABS: BASOPHILS % (AUTO) 0.1 % (0.0-3.0); HEMATOCRIT 43.9 % (42.0-52.0); HEMOGLOBIN 14.7 g/dl (14.0-18.0); IMMATURE GRANULOCYTE % (AUTO) 1.7 % (0.0-5.0); LYMPHOCYTES # (AUTO) 0.6 K/uL (0.60-3.4); LYMPHOCYTES % (AUTO) 7.7 (10.0-50.0); MEAN CORPUSCULAR HEMOGLOBIN 27.5 pg (27.0-31.0); MEAN CORPUSCULAR HGB CONC 33.5 (31.8-35.4); MEAN CORPUSCULAR VOLUME 82.2 fl (80.0-94.0); MONOCYTES # (AUTO) 0.4 K/uL (0.4-2.0); MONOCYTES % (AUTO) 5.4 (0-10); NEUTROPHILS # (AUTO) 6.1 K/ul (2.0-6.9); NEUTROPHILS % (AUTO) 85.1; PLATELET COUNT 192 10^3/uL (140-440); RED BLOOD COUNT 5.34 10^6/ul (4.70-6.10); WHITE BLOOD COUNT 7.17 K/ul (4.2-10.2)
[2016-03-15] MEDS: SOLU-MEDROL 125 MG IVP SCH ×3 (06:20→20:18)
[2016-03-15] MEDS: PROPYLENE GLYCOL EACHEYE PRN ×2 (06:23→21:54)
[2016-03-15] MEDS ORDERED: PROTONIX PO SCH (06:30)
[2016-03-15 06:40] LABS: ALBUMIN 2.9 g/dL (3.4-5.0); ALBUMIN/GLOBULIN RATIO 1.07; ANION GAP 14.2; BILIRUBIN,TOTAL 0.51 mg/dL (0.00-1.20); BUN/CREATININE RATIO 21.49; CALCIUM 8.5 mg/dL (8.2-10.2); CREATININE 1.07 mg/dL (0.60-1.10); POTASSIUM 4.2 mmol/L (3.5-5.1); TOTAL PROTEIN 5.6 g/dL (5.8-8.1)
[2016-03-15] MEDS: BENICAR PO SCH (08:37)
[2016-03-15] MEDS: XANAX PO SCH ×2 (08:38→11:09)
[2016-03-15] MEDS: CATAPRES PO SCH ×2 (08:38→20:15)
[2016-03-15] MEDS: LEXAPRO PO SCH (08:38)
[2016-03-15] MEDS: NORVASC PO SCH ×2 (08:38→20:14)
[2016-03-15] MEDS: MUCINEX PO SCH ×2 (08:38→20:15)
[2016-03-15] MEDS: MIRALAX PO SCH (08:39)
[2016-03-15] MEDS: LOVENOX SUBCUT SCH (08:39)
[2016-03-15] MEDS: ROCEPHIN 1 GM in SODIUM CHLORIDE 50 ML IV SCH (08:44)
[2016-03-15] MEDS: SPIRIVA IH SCH (08:45)
[2016-03-15] MEDS ORDERED: [UNRECOGNIZED DRUG - REMARK] PO SCH (09:00)
[2016-03-15] MEDS ORDERED: NON-FORMULARY MEDICATION (Olmesartan Medoxomil [Benicar] 40 MG) PO SCH ×22 (09:00)
[2016-03-15] MEDS: XOPENEX 1.25 MG NEB SCH ×2 (18:48→23:30)
[2016-03-15] MEDS: MUCOMYST 20% NEB NEB SCH (18:48)
[2016-03-15] MEDS: NON-FORMULARY MEDICATION (Fluticasone/Vilanterol [Breo Ellipta 100-25 Mcg Inh] 1 PUFF) IH SCH (20:15)
[2016-03-15] MEDS: ASPIRIN EC PO SCH (20:15)
[2016-03-15] MEDS: ATIVAN PO PRN (21:53)
[2016-03-16] MEDS: XOPENEX 1.25 MG NEB SCH ×4 (05:24→22:57)
[2016-03-16] MEDS: MUCOMYST 20% NEB NEB SCH ×2 (05:24→17:53)
[2016-03-16] MEDS: PROTONIX PO SCH (05:32)
[2016-03-16] MEDS: LASIX TAB PO SCH (05:32)
[2016-03-16] MEDS: SOLU-MEDROL 125 MG IVP SCH ×3 (05:33→20:37)
[2016-03-16] MEDS: DUONEB NEB SCH ×3 (07:31→07:33)
[2016-03-16] MEDS: MIRALAX PO SCH (09:03)
[2016-03-16] MEDS: CATAPRES PO SCH ×2 (09:04→21:29)
[2016-03-16] MEDS: BENICAR PO SCH (09:04)
[2016-03-16] MEDS: ROCEPHIN 1 GM in SODIUM CHLORIDE 50 ML IV SCH (09:04)
[2016-03-16] MEDS: MUCINEX PO SCH ×2 (09:04→21:29)
[2016-03-16] MEDS: NORVASC PO SCH ×2 (09:05→21:29)
[2016-03-16] MEDS: XANAX PO SCH ×2 (09:05→12:10)
[2016-03-16] MEDS: LOVENOX SUBCUT SCH (09:05)
[2016-03-16] MEDS: LEXAPRO PO SCH (09:05)
[2016-03-16] MEDS: SPIRIVA IH SCH (09:07)
[2016-03-16] MEDS: KETOTIFEN FUMARATE EACHEYE PRN (09:08)
[2016-03-16] MEDS: BACTROBAN TP SCH ×2 (11:23→21:29)
--- NOTE | 2016-03-16 13:37 | HP ---
DATE OF SERVICE: 03/14/16 - ADMISSION TO SWING BED CHIEF COMPLAINT: Continued IV antibiotics, physical and occupational therapy. HISTORY OF PRESENT ILLNESS: This is a 75-year-old male, who came to the office with shortness of breath, cough and congestion getting yellow-green phlegm. In the office, his saturation was 86, 81 on room air. With the cough, congestion and yellow phlegm , the patient was admitted to the hospital. ABGs were done which showed pH 7.46 , pc02 30.5, p02 37. The patient was put on the Venturi mask. The rest of the blood work, BNP was negative at 27. The first set of cardiac enzymes were negative. D. dimer was 4.17. The same day he had a CT of the chest done, which showed emphysema only, severe; increased density in the bases, questionable pneumonia superimposed and persistent right middle lobe consolidation. The patient was continued with his Rocephin, Azithromycin and IV Solu-Medrol. Gradually he started feeling better but he was still short of breath and hypoxic if he does any activity. ABGs got better with p02 58 and 86 and Venturi mask was weaned off and was put on 2L and 3L but with minimal exertion it was dropping into the 80s. At that time, again repeat CT scan was done which again showed pneumonia. At that time, TCU care was suggested with physical and occupational therapy which the patient opted for as he was still needing antibiotics. The patient was evaluated for that and qualified for occupational therapy and long-term antibiotics and care in the TCU. The patient was admitted to TCU. REVIEW OF SYSTEMS: CONSTITUTIONAL: No fever, no chills. Weakness and tiredness. HEENT: Normal. ENDOCRINE: No weight gain; no weight loss. CVS: No chest pain. No PND, no orthopnea. Shortness of breath. Hypoxemia on minimal exertion. RESPIRATORY: Cough and congestion. No hemoptysis. GI: No nausea, no vomiting. No abdominal pain. No melena. : No hematuria. No polyuria. MUSCULOSKELETAL: No joint swelling. PSYCHIATRIC: Not anxious. No depression. No suicidal thoughts. No homicidal thoughts. SKIN: Intact, no open lesions. PAST MEDICAL HISTORY: 1. Hypertension 2. Generalized anxiety disorder 3. Carotid artery disease with stent 4. Sleep apnea on 02 at h.s. 5. Depression 6. History of H. Pylori 7. Severe DJD L-spine PAST SURGICAL HISTORY: 1. Status post gallbladder 2. Status post tonsillectomy SOCIAL HISTORY: The patient is . Nonsmoker. No alcohol use. FAMILY HISTORY: Not significant. MEDICATIONS: 1. Aspirin 81 mg p.o. bedtime 2. Tiotropium two puff IH daily 3. Esomeprazole 40 mg p.o. daily 4. Furosemide 20 mg p.o. a.c. 5. Olmesartan 40 mg p.o. daily 6. Fluticasone/Vilanterol one puff IH daily 7. Clonidine 0.1 mg p.o. b.i.d. 8. Alprazolam 0.25 mg p.o. b.i.d. 9. Fexofenadine 180 mg p.o. daily 10. Polyethylene Glycol 17 mg p.o. daily 11. Escitalopram 10 mg p.o. daily 12. Amlodipine 5 mg p.o. daily 13. Ketotifen one drop each eye b.i.d. p.r.n. 14. Propylene Glycol 1 to 2 drop each as directed ALLERGIES: IV DYE PHYSICAL EXAMINATION: V/S: BP 134/76, respiratory rate 22 to 24, heart rate 84, afebrile. HEENT: Atraumatic, normocephalic. No scleral icterus. Mucosa dry. Pallor positive. NECK: Supple. No JVD, no bruit. No lymphadenopathy. No thyromegaly. HEART: S1, S2 normal. No murmur. No cyanosis or clubbing. No ascites. LUNGS: Bilateral entry is decreased. Basilar crackles. ABDOMEN: Soft, nontender. Bowel sounds are active. No CVA tenderness. No rigidity or guarding. EXTREMITIES: No cyanosis, clubbing or pedal edema. MUSCULOSKELETAL: Grossly intact. NEUROLOGIC: The patient is awake, alert, oriented times three. SKIN: Intact; no open lesions. LYMPHATIC: No lymph nodes palpable. LAB REVIEW: White count 7.17, hemoglobin 14.7, hematocrit 43.9, platelet count 192. Sodium 134, potassium 4.2, chloride 19, bicarb 25, BUN 23, creatinine 1.07, glucose 116. ASSESSMENT: 1. COPD EXACERBATION SECONDARY TO PNEUMONIA 2. BILATERAL COMMUNITY ACQUIRED PNEUMONIA 3. HYPOXEMIA 4. COPD 5. HYPERTENSION 6. CAD 7. DYSLIPIDEMIA 8. ANXIETY 9. OSTEOARTHRITIS PLAN: 1. Admit the patient to TCU care. 2. CBC, CMP every other day. 3. I & O's. 4. Cardiac diet. 5. Solu-Medrol 80 q.8hr. 6. Rocephin 1 gm daily. 7. Lovenox for the DVT prophylaxis. 8. Continue the rest of the medications. TIME SPENT: More than 35 minutes today for TCU admission. NITIN
[2016-03-16] MEDS: ATIVAN PO PRN (21:29)
[2016-03-16] MEDS: NON-FORMULARY MEDICATION (Fluticasone/Vilanterol [Breo Ellipta 100-25 Mcg Inh] 1 PUFF) IH SCH (21:29)
[2016-03-16] MEDS: ASPIRIN EC PO SCH (21:30)
[2016-03-17] MEDS: SOLU-MEDROL 125 MG IVP SCH ×3 (04:53→20:50)
[2016-03-17] MEDS: MUCOMYST 20% NEB NEB SCH ×2 (05:30→17:00)
[2016-03-17] MEDS: XOPENEX 1.25 MG NEB SCH ×4 (05:30→23:10)
[2016-03-17] MEDS: PROTONIX PO SCH (06:05)
[2016-03-17] MEDS: LASIX TAB PO SCH (06:06)
[2016-03-17] MEDS: ROCEPHIN 1 GM in SODIUM CHLORIDE 50 ML IV SCH (09:12)
[2016-03-17] MEDS: SPIRIVA IH SCH (09:14)
[2016-03-17] MEDS: XANAX PO SCH ×2 (09:15→12:09)
[2016-03-17] MEDS: BACTROBAN TP SCH ×2 (09:19→21:33)
[2016-03-17] MEDS: CATAPRES PO SCH ×2 (09:19→21:33)
[2016-03-17] MEDS: MUCINEX PO SCH ×2 (09:19→21:32)
[2016-03-17] MEDS: LEXAPRO PO SCH (09:19)
[2016-03-17] MEDS: BENICAR PO SCH (09:19)
[2016-03-17] MEDS: NORVASC PO SCH ×2 (09:20→21:32)
[2016-03-17] MEDS: MIRALAX PO SCH (09:20)
[2016-03-17] MEDS: LOVENOX SUBCUT SCH (09:20)
[2016-03-17] MEDS: ATIVAN PO PRN (21:31)
[2016-03-17] MEDS: ASPIRIN EC PO SCH (21:33)
[2016-03-17] MEDS: PROPYLENE GLYCOL EACHEYE PRN (21:34)
[2016-03-17] MEDS: NON-FORMULARY MEDICATION (Fluticasone/Vilanterol [Breo Ellipta 100-25 Mcg Inh] 1 PUFF) IH SCH (21:36)
[2016-03-18] MEDS: SOLU-MEDROL 125 MG IVP SCH ×3 (04:15→20:06)
[2016-03-18] MEDS: MUCOMYST 20% NEB NEB SCH ×2 (05:10→17:00)
[2016-03-18] MEDS: XOPENEX 1.25 MG NEB SCH ×4 (05:10→23:14)
[2016-03-18] MEDS: LASIX TAB PO SCH (05:41)
[2016-03-18] MEDS: PROTONIX PO SCH (05:42)
[2016-03-18] MEDS: ROCEPHIN 1 GM in SODIUM CHLORIDE 50 ML IV SCH (08:12)
[2016-03-18] MEDS: XANAX PO SCH ×2 (08:13→11:55)
[2016-03-18] MEDS: LOVENOX SUBCUT SCH (08:13)
[2016-03-18] MEDS: BENICAR PO SCH (08:13)
[2016-03-18] MEDS: BACTROBAN TP SCH ×2 (08:13→21:21)
[2016-03-18] MEDS: LEXAPRO PO SCH (08:14)
[2016-03-18] MEDS: NORVASC PO SCH ×2 (08:14→21:24)
[2016-03-18] MEDS: MUCINEX PO SCH ×2 (08:14→21:23)
[2016-03-18] MEDS: MIRALAX PO SCH (08:14)
[2016-03-18] MEDS: CATAPRES PO SCH ×2 (08:14→21:24)
[2016-03-18] MEDS: SPIRIVA IH SCH (08:15)
[2016-03-18] MEDS: KETOTIFEN FUMARATE EACHEYE PRN (21:22)
[2016-03-18] MEDS: NON-FORMULARY MEDICATION (Fluticasone/Vilanterol [Breo Ellipta 100-25 Mcg Inh] 1 PUFF) IH SCH (21:23)
[2016-03-18] MEDS: ASPIRIN EC PO SCH (21:24)
[2016-03-18] MEDS: ATIVAN PO PRN (21:24)
[2016-03-19] MEDS: SOLU-MEDROL 125 MG IVP SCH ×3 (04:03→21:25)
[2016-03-19] MEDS: MUCOMYST 20% NEB NEB SCH ×2 (04:53→23:14)
[2016-03-19] MEDS: XOPENEX 1.25 MG NEB SCH ×4 (04:53→23:18)
[2016-03-19] MEDS: PROTONIX PO SCH (05:47)
[2016-03-19] MEDS: LASIX TAB PO SCH (05:47)
[2016-03-19 07:27] LABS: BASOPHILS % (AUTO) 0.2 % (0.0-3.0); HEMATOCRIT 43.5 % (42.0-52.0); HEMOGLOBIN 14.5 g/dl (14.0-18.0); IMMATURE GRANULOCYTE % (AUTO) 2.9 % (0.0-5.0); LYMPHOCYTES # (AUTO) 0.3 K/uL (0.60-3.4); LYMPHOCYTES % (AUTO) 3.2 (10.0-50.0); MEAN CORPUSCULAR HEMOGLOBIN 27.5 pg (27.0-31.0); MEAN CORPUSCULAR HGB CONC 33.3 (31.8-35.4); MEAN CORPUSCULAR VOLUME 82.5 fl (80.0-94.0); MONOCYTES # (AUTO) 0.4 K/uL (0.4-2.0); MONOCYTES % (AUTO) 3.5 (0-10); NEUTROPHILS # (AUTO) 9.6 K/ul (2.0-6.9); NEUTROPHILS % (AUTO) 90.2; PLATELET COUNT 200 10^3/uL (140-440); RED BLOOD COUNT 5.27 10^6/ul (4.70-6.10); WHITE BLOOD COUNT 10.67 K/ul (4.2-10.2)
[2016-03-19 07:46] LABS: ALBUMIN 2.9 g/dL (3.4-5.0); ALBUMIN/GLOBULIN RATIO 1.16; ANION GAP 14.5; BILIRUBIN,TOTAL 0.88 mg/dL (0.00-1.20); BUN/CREATININE RATIO 28.57; CALCIUM 8.2 mg/dL (8.2-10.2); CREATININE 0.91 mg/dL (0.60-1.10); POTASSIUM 4.5 mmol/L (3.5-5.1); TOTAL PROTEIN 5.4 g/dL (5.8-8.1)
[2016-03-19] MEDS: ATIVAN PO PRN (08:51)
[2016-03-19] MEDS: BACTROBAN TP SCH ×2 (08:52→21:22)
[2016-03-19] MEDS: LEXAPRO PO SCH (08:52)
[2016-03-19] MEDS: NORVASC PO SCH ×2 (08:52→21:21)
[2016-03-19] MEDS: CATAPRES PO SCH ×2 (08:52→21:22)
[2016-03-19] MEDS: BENICAR PO SCH (08:52)
[2016-03-19] MEDS: MUCINEX PO SCH ×2 (08:53→21:22)
[2016-03-19] MEDS: MIRALAX PO SCH (08:53)
[2016-03-19] MEDS: LOVENOX SUBCUT SCH (08:53)
[2016-03-19] MEDS: SPIRIVA IH SCH (08:55)
[2016-03-19] MEDS: XANAX PO SCH ×2 (09:30→12:22)
[2016-03-19] MEDS: ASPIRIN EC PO SCH (21:21)
[2016-03-19] MEDS: NON-FORMULARY MEDICATION (Fluticasone/Vilanterol [Breo Ellipta 100-25 Mcg Inh] 1 PUFF) IH SCH (21:23)
[2016-03-19] MEDS: KETOTIFEN FUMARATE EACHEYE PRN (21:26)
[2016-03-20] MEDS: MUCOMYST 20% NEB NEB SCH ×2 (04:54→18:43)
[2016-03-20] MEDS: XOPENEX 1.25 MG NEB SCH ×4 (04:56→23:07)
[2016-03-20] MEDS: LASIX TAB PO SCH (05:52)
[2016-03-20] MEDS: SOLU-MEDROL 125 MG IVP SCH (05:52)
[2016-03-20] MEDS: PROTONIX PO SCH (05:52)
--- NOTE | 2016-03-20 06:49 | PN ---
DATE OF SERVICE: 03/17/16 - SEEING FOR DR. LA SUBJECTIVE: 75-year-old white male hospitalized with acute pneumonia, hypoxemia. The patient's condition has improved. He is able to cough up the plugs. He is able to walk. He has been walking outside without much shortness of breath. He is able to talk in sentences without stopping. REVIEW OF SYSTEMS: CONSTITUTIONAL: No night sweats. No fatigue, malaise, lethargy. No fever or chills. HEENT: Eyes: No visual changes. No eye pain. No eye discharge. ENT: No runny nose. No epistaxis. No sinus pain. No sore throat. No odynophagia. No congestion. RESPIRATORY: No cough, no congestion. No hemoptysis. CARDIOVASCULAR: No angina symptoms. No CHF symptoms. No atypical chest pain for CAD. No palpitations. Shortness of breath with exertion but is able to walk more distance. No PND, no orthopnea. GASTROINTESTINAL: No abdominal pain. No nausea or vomiting. No diarrhea or constipation. No hematemesis. No hematochezia. GENITOURINARY: No urgency. No frequency. No dysuria. No hematuria. No obstructive symptoms. No discharge. No pain. No significant abnormal bleeding. MUSCULOSKELETAL: No musculoskeletal pain; no joint swelling. NEUROLOGICAL: No headache. No neck pain. No syncope. No seizures. No dizziness. PSYCHIATRIC: Not anxious. No depression. No suicidal thoughts. No homicidal thoughts. SKIN: No rash. No lesions. No wounds. ENDOCRINE: No unexplained weight loss. No weight gain. HEMATOLOGIC/LYMPHATIC: No anemia. No purpura. No petechiae. No prolonged or excessive bleeding. No palpable lymph nodes. PHYSICAL EXAMINATION: GENERAL: The patient is awake, alert and oriented. VITAL SIGNS: Temperature 97.4, pusle 73, BP 133/75, respiratory rate 20. 02 sat 98% on 2L. HEENT: Head normocephalic, atraumatic. Eyes: Extraocular muscles are intact. Pupils are equal, round and reactive to light and accommodation. Ears: No lesions. Nose appeared normal. Throat: No exudate or erythema. NECK: Supple. No JVD, no carotid bruit. No lymphadenopathy or thyromegaly. LUNGS: Decreased breath sounds but clear to auscultation. Percussion note normal. Chest symmetrical. HEART: S1, S2, no S3. No murmurs. No cyanosis or clubbing. No ascites. Pulses: Dorsalis pedis and posterior tibial pulses +1 to +2 both sides. ABDOMEN: Soft. Nontender. Bowel sounds active. No CVA tenderness. No mass felt. EXTREMITIES: No edema. Full range of motion of all extremities, equal. NEUROLOGIC: No focal deficit. Cranial nerves II through XII are grossly intact. No headache, no double vision or headache. SKIN: Not dry. Intact. Turgor - normal. LYMPHATIC: No palpable lymph nodes/no lymphedema. MUSCULOSKELETAL: Normal joints with no swelling. Muscle tone is normal. LABS: Hemoglobin 14.7, hematocrit 43, WBC 7,000, normal differential. Creatinine 1, BUN 23, potassium 4.2. ASSESSMENT: 1. RESPIRATORY FAILURE, RESOLVED. 2. PNEUMONIA, IMPROVING. 3. COPD, MODERATE TO SEVERE BUT IMPROVING WITH RESPONSE TO ANTIBIOTICS AND NEBS TREATMENT. 4. BLOOD PRESSURE UNDER CONTROL. 5. NO EVIDENCE OF CHF OR SYMPTOMS OF CORONARY ARTERY DISEASE. CONDITION: STABLE. TIME SPENT: More than 30 minutes. Plan and coordination of the patient's care discussed in the presence of nurse. NITIN
[2016-03-20] MEDS ORDERED: SOLU-MEDROL 125 MG IVP SCH (08:37)
[2016-03-20] MEDS: BACTROBAN TP SCH ×2 (09:17→21:00)
[2016-03-20] MEDS: LOVENOX SUBCUT SCH (09:17)
[2016-03-20] MEDS: MIRALAX PO SCH (09:18)
[2016-03-20] MEDS: XANAX PO SCH ×2 (09:18→12:17)
[2016-03-20] MEDS: BENICAR PO SCH (09:18)
[2016-03-20] MEDS: NORVASC PO SCH ×2 (09:18→21:01)
[2016-03-20] MEDS: MUCINEX PO SCH ×2 (09:18→21:02)
[2016-03-20] MEDS: CATAPRES PO SCH ×2 (09:18→21:01)
[2016-03-20] MEDS: LEXAPRO PO SCH (09:18)
[2016-03-20] MEDS: SPIRIVA IH SCH (09:19)
[2016-03-20] MEDS: SOLU-MEDROL 40 MG IVP SCH ×2 (12:17→21:01)
[2016-03-20] MEDS: ASPIRIN EC PO SCH (21:02)
[2016-03-20] MEDS: NON-FORMULARY MEDICATION (Fluticasone/Vilanterol [Breo Ellipta 100-25 Mcg Inh] 1 PUFF) IH SCH (21:07)
[2016-03-20] MEDS: ATIVAN PO PRN (21:07)
[2016-03-20] MEDS: KETOTIFEN FUMARATE EACHEYE PRN (21:08)
[2016-03-21] MEDS: MUCOMYST 20% NEB NEB SCH (05:09)
[2016-03-21] MEDS: XOPENEX 1.25 MG NEB SCH ×2 (05:09→11:09)
[2016-03-21 05:56] VITALS: BP 135/76; TEMP 98
[2016-03-21] MEDS: SOLU-MEDROL 40 MG IVP SCH ×2 (05:57→12:17)
[2016-03-21] MEDS: PROTONIX PO SCH (05:58)
[2016-03-21] MEDS: LASIX TAB PO SCH (05:58)
[2016-03-21] MEDS: BACTROBAN TP SCH (09:01)
[2016-03-21] MEDS: LEXAPRO PO SCH (09:01)
[2016-03-21] MEDS: BENICAR PO SCH (09:02)
[2016-03-21] MEDS: MIRALAX PO SCH (09:02)
[2016-03-21] MEDS: NORVASC PO SCH (09:02)
[2016-03-21] MEDS: LOVENOX SUBCUT SCH (09:02)
[2016-03-21] MEDS: CATAPRES PO SCH (09:02)
[2016-03-21] MEDS: MUCINEX PO SCH (09:02)
[2016-03-21] MEDS: SPIRIVA IH SCH (09:03)
[2016-03-21] MEDS: XANAX PO SCH ×2 (09:05→11:41)
--- NOTE | 2016-03-21 09:39 | CT ---
EXAM: CT examination of the chest without intravenous contrast, axial, sagittal, and coronal imagin g. COMPARISON: CT examination of the chest performed on 03/13/2016. Reason for study: Follow-up pneumonia. FINDINGS: Old granulomas disease is seen within both lungs and the mediastinum. There are similar appearing emphysematous changes seen with a biapical predominance. Chronic scarring or atelectasis within the middle lobe is unchanged. The previously described discoid opacities in the lung bases a re improved on today's examination. There is atherosclerotic disease of the aorta and distal arteri al vasculature to include the coronary vessels. Similar appearing degenerative disease of the thoracic spine with mild thoracic dextroscoliosis. Th e gallbladder has been removed. A large amount of retained food is seen in the stomach. IMPRESSION: 1. Previously described discoid opacities in the lung bases are improved on today's examination. No new acute cardiothoracic findings. 2. Chronic emphysematous changes and degenerative disease.
--- NOTE | 2016-03-22 15:26 | DS ---
DATE OF SERVICE: 03/21/16 FINAL DIAGNOSIS: 1. Respiratory failure, better 2. Pneumonia, community acquired 3. COPD moderate to severe 4. Hypertension 5. Anxiety disorder 6. CAD 7. GERD 8. Cholecystectomy DISCHARGE INSTRUCTIONS: Discharge patient home. The patient is aware and is agreeable for continuous oxygen at home. MEDICATIONS AT DISCHARGE: Xanax Aspirin Clonidine Lexapro Nexium Breo Lasix Medrol Dosepak Benicar Miralax Systane Spiriva NEW PRESCRIPTIONS: Medrol Dosepak DIET INSTRUCTIONS: Cardiac and healthy ACTIVITY: As much as tolerated. Participation in the pulmonary rehabilitation. SMOKING: Former Smoker DISEASE SPECIFIC EDUCATION: Use of oxygen High inflammable state of oxygen been discussed Prevention of pneumonia with pneumonia vaccination been discussed. HOSPITAL COURSE: Peng Hernandez is a 75 year old male came to the office complaining of shortness of breath, cough and congestion. He was found be hypoxic and hypertensive. He was admitted to the hospital. Initial CT scan was negative for pneumonia was showing it was a COPD exacerbation secondary to the bronchitis and was started on the Rocephin, Azithromycin, Solu-Medrol and DUO NEBS. Gradually the hypoxia was getting better but the patient was not feeling good. Repeat CAT scan was done which showed the pneumonia. At that time the patient was needing the fci IV antibiotics so was placed in the TCU care and given antibiotics Rocephin, breathing treatments and steroids. He was up and about able to walk but his saturation continued to fall with the minimal exertion. At that time he was evaluate for the oxygen, was seen by pulmonology department. Three step oxygen; step one was 94, step two As pO2 with the exercise in the room dropped to the 83 the patient automatically qualifies for the oxygen. Discussed in length with the patient about the oxygen use and risk of highly inflammable status. He verbalized understanding and willing to use as patient says that when he uses oxygen he can walk better and he feels better. The patient will be continued in the rehabilitation with pulmonary rehab. TIME SPENT: More than 45 minutes today. NITIN
--- NOTE | 2016-05-09 15:15 | PN ---
DATE OF SERVICE: 03/21/16 SUBJECTIVE: The patient says that he is feeling a lot better, using oxygen is helping him a lot. Some cough but no phlegm. Otherwise no PND and no orthopnea. REVIEW OF SYSTEMS: CONSTITUTIONAL: No fever, no chills. HEENT: Normal. ENDOCRINE: No weight gain, no weight loss. CVS: No angina symptoms. No CHF symptoms. No palpitations. No atypical chest pain for CAD. No shortness of breath. No PND, no orthopnea. RESPIRATORY: No cough, no hemoptysis. GI: No nausea, no vomiting. No abdominal pain. : No hematuria. No polyuria. MUSCULOSKELETAL:. No joint swelling. PSYCHIATRIC: Not anxious. No depression. No suicidal thoughts. No homicidal thoughts. SKIN: Intact. No rash. PHYSICAL EXAMINATION: V/S: blood pressure 135/76, respiratory rate 20, heart rate 76, temperature 98.0 and saturation 93 on the room air. HEENT: Normocephalic, atraumatic. Ears, eyes, nose and throat normal. Mucosa dry. NECK: Supple. No JVD, no carotid bruit. No lymphadenopathy. LUNGS: Decreased and basilar crackles. Clear to auscultation. No rales or rhonchi. HEART: S1, S2 normal. No S3. No murmur, gallop or regurgitation. ABDOMEN: Soft, nontender. Bowel sounds active. No rigidity. No rebound or guarding. No CVA tenderness. EXTREMITIES: No clubbing, cyanosis or pedal edema. MUSCULOSKELETAL: No joint swelling. NEUROLOGIC: Awake, alert, oriented times three. No focal deficit. LYMPHATIC: No lymph nodes palpable. SKIN: Intact. LABS: WBC 10.67, hgb 14.5, plt count 200, sodium 132, potassium 4.5, chloride 95, bicarb 27, BUN 26, creatinine 0.91 and glucose 106. ASSESSMENT: 1. COPD exacerbation secondary to the community acquired pneumonia 2. Hypoxemia, breathing oxygen 3. Depression 4. Anxiety 5. Hypertension PLAN: 1. Discharge patient home 2. Activity as tolerated 3. Oxygen use 4. Home oxygen been discussed and verbalized understanding. 5. As of now the oxygen is helping the patient. He promised the he would be using the continuous oxygen. 6. Followup in the office within one week. TIME SPENT: More than 30 minutes MTDD
--- NOTE | 2016-05-11 15:33 | PN ---
DATE OF SERVICE: 03/19/2016 SUBJECTIVE: The patient is in the swing bed and was admitted with COPD exacerbation, pneumonia, hypoxemia for continued Iv antibiotics. He is feeling some better. He still has shortness of breath with exertion. Oxygen has been helping. It has been decreased to 2 liters now. He has some productive cough with slightly yellow mucus. REVIEW OF SYSTEMS: CONSTITUTIONAL: No fever, no chills. No PND or orthopnea. HEENT: Normal. ENDOCRINE: No weight gain, no weight loss. CVS: No angina symptoms. No CHF symptoms. No palpitations. No atypical chest pain for CAD. Shortness of breath. No PND, no orthopnea. RESPIRATORY: Productive cough, no hemoptysis. GI: No nausea, no vomiting. No abdominal pain. : No hematuria. No polyuria. MUSCULOSKELETAL:. No joint swelling. PSYCHIATRIC: Not anxious. No depression. No suicidal thoughts. No homicidal thoughts. SKIN: Intact. No rash. PHYSICAL EXAMINATION: V/S: Blood pressure 121/70, respiratory rate 16, heart rate 72, temperature 97.6 , saturation 97. HEENT: Normocephalic, atraumatic. Mucosa dry. Ears, eyes, nose and throat normal. NECK: Supple. No JVD, no carotid bruit. No lymphadenopathy. LUNGS: Decreased and basilar crackles. HEART: S1, S2 normal. No S3. No murmur, gallop or regurgitation. ABDOMEN: Soft, nontender. Bowel sounds active. No rigidity. No rebound or guarding. No CVA tenderness. EXTREMITIES: No clubbing, cyanosis or pedal edema. MUSCULOSKELETAL: No joint swelling. NEUROLOGIC: Awake, alert, oriented times three. No focal deficit. LYMPHATIC: No lymph nodes palpable. SKIN: Intact. LABS: White count 10.67, hemoglobin 14.5, platelet count 200, sodium 132, potassium 4.5, chloride 95, bicarb 27, BUN 26, creatinine 0.91, glucose 106. ASSESSMENT: 1. COMMUNITY ACQUIRED PNEUMONIA. 2. CHRONIC OBSTRUCTIVE LUNG DISEASE EXACERBATION SECONDARY TO THE PNEUMONIA, NEEDING OXYGEN AND CONTINUED ANTIBIOTICS 3. DEPRESSION 4. ANXIETY 5. HYPERTENSION PLAN: 1. Continue the Xopenex, Mucomyst, Rocephin, Lovenox, Solu-Medrol. 2. Daily I & O's. TIME SPENT: More than 30 minutes MTDD
== END 2016-03-21 13:18 | disposition home or self-care (01) | DRG 193 ==
LOC: SCU 11:47 → MEDSURG B 03-15 18:30
PROVIDERS: ADMIT Emergency Medicine; ATTEND Emergency Medicine
DX: J18.9 Pneumonia, unspecified organism (principal); J96.91 Respiratory failure, unspecified with hypoxia; J44.9 Chronic obstructive pulmonary disease, unspecified; I10 Essential (primary) hypertension; F41.9 Anxiety disorder, unspecified; I25.10 Atherosclerotic heart disease of native coronary artery without angina pectoris; K21.9 Gastro-esophageal reflux disease without esophagitis; Z79.2 Long term (current) use of antibiotics; Z79.899 Other long term (current) drug therapy; Z99.81 Dependence on supplemental oxygen
CPT/HCPCS: 36415; 80053; 85025; 87081; 94640; 94761; 97802

== ENCOUNTER 2016-03-27 13:00 | Outpatient (CLI) ==
[2016-03-27 13:20] LABS: BASOPHILS % (AUTO) 0.2 % (0.0-3.0); HEMATOCRIT 42.1 % (42.0-52.0); LYMPHOCYTES # (AUTO) 0.5 K/uL (0.60-3.4); LYMPHOCYTES % (AUTO) 4.8 (10.0-50.0); MEAN CORPUSCULAR HEMOGLOBIN 27.8 pg (27.0-31.0); MEAN CORPUSCULAR HGB CONC 33.3 (31.8-35.4); MEAN CORPUSCULAR VOLUME 83.7 fl (80.0-94.0); MONOCYTES # (AUTO) 0.6 K/uL (0.4-2.0); MONOCYTES % (AUTO) 5.3 (0-10); NEUTROPHILS # (AUTO) 9.1 K/ul (2.0-6.9); NEUTROPHILS % (AUTO) 87.7; PLATELET COUNT 141 10^3/uL (140-440); RED BLOOD COUNT 5.03 10^6/ul (4.70-6.10); WHITE BLOOD COUNT 10.35 K/ul (4.2-10.2)
== END 2016-03-27 13:01 | disposition home or self-care (01) ==
LOC: LAB 13:00
PROVIDERS: ATTEND Internal Medicine Hematology & Oncology
DX: D75.1 Secondary polycythemia (principal)
CPT/HCPCS: 36415; 85025

== ENCOUNTER 2016-04-11 06:59 | Outpatient (RCR) ==
[2016-05-02 10:50] VITALS: BP 110/62
== END 2016-05-08 ==
LOC: CAR.REHAB 06:59
PROVIDERS: ATTEND Internal Medicine
DX: I25.810 Atherosclerosis of coronary artery bypass graft(s) without angina pectoris (principal); Z95.5 Presence of coronary angioplasty implant and graft
CPT/HCPCS: 93797

== ENCOUNTER 2016-04-24 13:00 | Outpatient (CLI) ==
[2016-04-24 13:17] LABS: BASOPHILS % (AUTO) 0.3 % (0.0-3.0); EOSINOPHILS # (AUTO) 0.1 K/ul (0.0-0.7); HEMATOCRIT 39.9 % (42.0-52.0); HEMOGLOBIN 13.6 g/dl (14.0-18.0); IMMATURE GRANULOCYTE % (AUTO) 2.7 % (0.0-5.0); LYMPHOCYTES % (AUTO) 22.4 (10.0-50.0); MEAN CORPUSCULAR HEMOGLOBIN 29.4 pg (27.0-31.0); MEAN CORPUSCULAR HGB CONC 34.1 (31.8-35.4); MEAN CORPUSCULAR VOLUME 86.2 fl (80.0-94.0); MONOCYTES # (AUTO) 1.7 K/uL (0.4-2.0); MONOCYTES % (AUTO) 18.8 (0-10); NEUTROPHILS # (AUTO) 4.8 K/ul (2.0-6.9); NEUTROPHILS % (AUTO) 54.8; PLATELET COUNT 199 10^3/uL (140-440); RED BLOOD COUNT 4.63 10^6/ul (4.70-6.10); WHITE BLOOD COUNT 8.79 K/ul (4.2-10.2)
== END 2016-04-24 13:01 | disposition home or self-care (01) ==
LOC: LAB 13:00
PROVIDERS: ATTEND Internal Medicine Hematology & Oncology
DX: D75.1 Secondary polycythemia (principal)
CPT/HCPCS: 36415; 85025

== ENCOUNTER 2016-05-09 06:57 | Outpatient (RCR) ==
[2016-06-07 08:58] VITALS: BP 128/54
== END 2016-06-08 ==
LOC: CAR.REHAB 06:57
PROVIDERS: ATTEND Internal Medicine
DX: I25.810 Atherosclerosis of coronary artery bypass graft(s) without angina pectoris (principal); Z95.5 Presence of coronary angioplasty implant and graft
CPT/HCPCS: 93797

== ENCOUNTER 2016-05-18 12:55 | Outpatient (CLI) | payer OTHER ==
[2016-05-18 13:30] LABS: BASOPHILS % (AUTO) 0.3 % (0.0-3.0); EOSINOPHILS # (AUTO) 0.2 K/ul (0.0-0.7); EOSINOPHILS % (AUTO) 2.2 % (0.0-7.0); HEMOGLOBIN 14.7 g/dl (14.0-18.0); IMMATURE GRANULOCYTE % (AUTO) 0.3 % (0.0-5.0); LYMPHOCYTES # (AUTO) 2.1 K/uL (0.60-3.4); LYMPHOCYTES % (AUTO) 29.9 (10.0-50.0); MEAN CORPUSCULAR HEMOGLOBIN 28.7 pg (27.0-31.0); MEAN CORPUSCULAR HGB CONC 33.4 (31.8-35.4); MEAN CORPUSCULAR VOLUME 85.9 fl (80.0-94.0); MONOCYTES # (AUTO) 0.8 K/uL (0.4-2.0); MONOCYTES % (AUTO) 11.5 (0-10); NEUTROPHILS # (AUTO) 3.9 K/ul (2.0-6.9); NEUTROPHILS % (AUTO) 55.8; PLATELET COUNT 228 10^3/uL (140-440); RED BLOOD COUNT 5.12 10^6/ul (4.70-6.10); WHITE BLOOD COUNT 6.93 K/ul (4.2-10.2)
== END 2016-05-18 12:56 | disposition home or self-care (01) ==
LOC: LAB 12:55
PROVIDERS: ATTEND Internal Medicine Hematology & Oncology
DX: D75.1 Secondary polycythemia (principal)
CPT/HCPCS: 36415; 85025

== ENCOUNTER 2016-05-22 12:46 | Outpatient (CLI) | payer OTHER ==
--- NOTE | 2016-05-22 13:37 | CT ---
EXAM: CT chest without contrast HISTORY: Followup nodule right upper lobe COMPARISON: 03/1989 and 2016 TECHNIQUE: CT chest performed without intravenous contrast. Coronal and sagittal reformatted image s obtained. FINDINGS: Thyroid and thoracic inlet appear normal. Heart is normal in size. Coronary calcificati ons. No pericardial effusion. Aorta normal in caliber. Atherosclerosis. Esophagus appears normal . Evaluation for lymphadenopathy limited without contrast. No lymphadenopathy identified. Calcifi ed mediastinal and hilar lymph nodes, consistent with old granulomatous disease. Granulomatous calc ification in the liver and spleen. Patient status post cholecystectomy. Diverticulosis of the inco mpletely imaged colon. Bilateral renal cortical thinning/scarring. Visualized portion upper abdome n demonstrates no acute abnormality. No acute abnormalities of the bones. Degenerative change in t he spine. No pneumothorax. No pleural effusion. Central airway patent. There is moderate centrilo bular emphysema. There is a new area of consolidation appears somewhat nodular in the right upper lobe measuring up to 1.2 cm axial image 14 and 2.8 cm on coronal image 49. Previously described dis coid opacities have increased at the lung bases with increased areas of bibasilar rounded consolidat ion. There is granulomatous calcification. IMPRESSION: 1. Bibasilar opacities appear increased with increased areas of rounded consolidation at the lung b ases, may represent fibrosis with worsening pneumonia or increased atelectasis. 2. Unexpected finding: New region of consolidation right upper lobe may represent an small area of pneumonia, though is somewhat nodular and CT chest follow-up is recommended in 1 month for reevalua tion. 3. Emphysema
== END 2016-05-22 12:47 | disposition home or self-care (01) ==
LOC: RAD 12:46
PROVIDERS: ATTEND Internal Medicine Pulmonary Disease
DX: R91.1 Solitary pulmonary nodule (principal)

== ENCOUNTER 2016-06-09 07:00 | Outpatient (RCR) ==
[2016-07-06 11:03] VITALS: BP 118/54
== END 2016-07-08 ==
LOC: CAR.REHAB 07:00
PROVIDERS: ATTEND Internal Medicine
DX: I25.810 Atherosclerosis of coronary artery bypass graft(s) without angina pectoris (principal); Z95.5 Presence of coronary angioplasty implant and graft
CPT/HCPCS: 93797

== ENCOUNTER 2016-06-15 12:59 | Outpatient (CLI) ==
[2016-06-15 13:12] LABS: BASOPHILS % (AUTO) 0.3 % (0.0-3.0); EOSINOPHILS # (AUTO) 0.3 K/ul (0.0-0.7); EOSINOPHILS % (AUTO) 4.2 % (0.0-7.0); HEMATOCRIT 43.3 % (42.0-52.0); HEMOGLOBIN 14.2 g/dl (14.0-18.0); IMMATURE GRANULOCYTE % (AUTO) 0.2 % (0.0-5.0); MEAN CORPUSCULAR HEMOGLOBIN 28.6 pg (27.0-31.0); MEAN CORPUSCULAR HGB CONC 32.8 (31.8-35.4); MEAN CORPUSCULAR VOLUME 87.1 fl (80.0-94.0); MONOCYTES # (AUTO) 0.7 K/uL (0.4-2.0); MONOCYTES % (AUTO) 10.2 (0-10); NEUTROPHILS # (AUTO) 3.5 K/ul (2.0-6.9); NEUTROPHILS % (AUTO) 54.1; PLATELET COUNT 251 10^3/uL (140-440); RED BLOOD COUNT 4.97 10^6/ul (4.70-6.10); WHITE BLOOD COUNT 6.49 K/ul (4.2-10.2)
== END 2016-06-15 13:00 | disposition home or self-care (01) ==
LOC: LAB 12:59
PROVIDERS: ATTEND Internal Medicine Hematology & Oncology
DX: D75.1 Secondary polycythemia (principal)
CPT/HCPCS: 36415; 85025

== ENCOUNTER 2016-07-09 07:50 | Outpatient (RCR) ==
[2016-08-08 10:49] VITALS: BP 120/64
== END 2016-08-08 ==
LOC: CAR.REHAB 07:50
PROVIDERS: ATTEND Internal Medicine
DX: I25.810 Atherosclerosis of coronary artery bypass graft(s) without angina pectoris (principal); Z95.5 Presence of coronary angioplasty implant and graft
CPT/HCPCS: 93797

== ENCOUNTER 2016-07-18 12:01 | Outpatient (CLI) ==
[2016-07-18 12:14] LABS: BASOPHILS % (AUTO) 0.3 % (0.0-3.0); EOSINOPHILS # (AUTO) 0.2 K/ul (0.0-0.7); EOSINOPHILS % (AUTO) 2.9 % (0.0-7.0); HEMATOCRIT 43.6 % (42.0-52.0); HEMOGLOBIN 14.5 g/dl (14.0-18.0); IMMATURE GRANULOCYTE % (AUTO) 0.3 % (0.0-5.0); LYMPHOCYTES # (AUTO) 2.4 K/uL (0.60-3.4); LYMPHOCYTES % (AUTO) 34.6 (10.0-50.0); MEAN CORPUSCULAR HEMOGLOBIN 28.3 pg (27.0-31.0); MEAN CORPUSCULAR HGB CONC 33.3 (31.8-35.4); MONOCYTES # (AUTO) 0.6 K/uL (0.4-2.0); NEUTROPHILS # (AUTO) 3.7 K/ul (2.0-6.9); NEUTROPHILS % (AUTO) 52.9; PLATELET COUNT 225 10^3/uL (140-440); RED BLOOD COUNT 5.13 10^6/ul (4.70-6.10); WHITE BLOOD COUNT 6.99 K/ul (4.2-10.2)
== END 2016-07-18 12:02 | disposition home or self-care (01) ==
LOC: LAB 12:01
PROVIDERS: ATTEND Internal Medicine Hematology & Oncology
DX: D75.1 Secondary polycythemia (principal)
CPT/HCPCS: 36415; 85025

== ENCOUNTER 2016-08-09 10:42 | Outpatient (RCR) ==
[2016-09-07 11:01] VITALS: BP 138/64
== END 2016-09-07 ==
LOC: CAR.REHAB 10:42
PROVIDERS: ATTEND Internal Medicine
DX: I25.810 Atherosclerosis of coronary artery bypass graft(s) without angina pectoris (principal); Z95.5 Presence of coronary angioplasty implant and graft
CPT/HCPCS: 93797

== ENCOUNTER 2016-08-10 23:22 | Outpatient (CLI) | END 2016-08-10 23:23 | disposition home or self-care (01) | LOC: AMBL 23:22 | PROVIDERS: ATTEND Emergency Medicine | DX: R06.9 Unspecified abnormalities of breathing (principal); R06.2 Wheezing ==

== ENCOUNTER 2016-08-22 13:02 | Outpatient (CLI) | payer OTHER ==
[2016-08-22 13:22] LABS: BASOPHILS % (AUTO) 0.2 % (0.0-3.0); HEMATOCRIT 41.6 % (42.0-52.0); HEMOGLOBIN 14.4 g/dl (14.0-18.0); IMMATURE GRANULOCYTE % (AUTO) 1.8 % (0.0-5.0); LYMPHOCYTES # (AUTO) 0.9 K/uL (0.60-3.4); LYMPHOCYTES % (AUTO) 7.8 (10.0-50.0); MEAN CORPUSCULAR HEMOGLOBIN 28.1 pg (27.0-31.0); MEAN CORPUSCULAR HGB CONC 34.6 (31.8-35.4); MEAN CORPUSCULAR VOLUME 81.3 fl (80.0-94.0); MONOCYTES # (AUTO) 0.4 K/uL (0.4-2.0); MONOCYTES % (AUTO) 3.6 (0-10); NEUTROPHILS # (AUTO) 9.5 K/ul (2.0-6.9); NEUTROPHILS % (AUTO) 86.6; PLATELET COUNT 240 10^3/uL (140-440); RED BLOOD COUNT 5.12 10^6/ul (4.70-6.10); WHITE BLOOD COUNT 10.98 K/ul (4.2-10.2)
== END 2016-08-22 13:03 | disposition home or self-care (01) ==
LOC: LAB 13:02
PROVIDERS: ATTEND Internal Medicine Hematology & Oncology
DX: D75.1 Secondary polycythemia (principal)
CPT/HCPCS: 36415; 85025

== ENCOUNTER 2016-09-10 07:05 | Outpatient (RCR) ==
[2016-10-08 11:02] VITALS: BP 118/64
== END 2016-10-08 ==
LOC: CAR.REHAB 07:05
PROVIDERS: ATTEND Internal Medicine
DX: I25.810 Atherosclerosis of coronary artery bypass graft(s) without angina pectoris (principal); Z95.5 Presence of coronary angioplasty implant and graft
CPT/HCPCS: 93797; 93798

== ENCOUNTER 2016-09-12 13:10 | Outpatient (CLI) ==
[2016-09-12 13:34] LABS: BASOPHILS % (AUTO) 0.1 % (0.0-3.0); EOSINOPHILS % (AUTO) 0.1 % (0.0-7.0); HEMATOCRIT 42.2 % (42.0-52.0); HEMOGLOBIN 14.2 g/dl (14.0-18.0); LYMPHOCYTES # (AUTO) 0.6 K/uL (0.60-3.4); LYMPHOCYTES % (AUTO) 8.4 (10.0-50.0); MEAN CORPUSCULAR HEMOGLOBIN 27.3 pg (27.0-31.0); MEAN CORPUSCULAR HGB CONC 33.6 (31.8-35.4); MONOCYTES # (AUTO) 0.4 K/uL (0.4-2.0); MONOCYTES % (AUTO) 5.5 (0-10); NEUTROPHILS % (AUTO) 82.9; PLATELET COUNT 296 10^3/uL (140-440); RED BLOOD COUNT 5.21 10^6/ul (4.70-6.10); WHITE BLOOD COUNT 7.24 K/ul (4.2-10.2)
[2016-09-12 16:43] LABS: ALBUMIN 3.2 g/dL (3.4-5.0); ALBUMIN/GLOBULIN RATIO 1.07; ANION GAP 13.2; BILIRUBIN,TOTAL 0.39 mg/dL (0.00-1.20); BUN/CREATININE RATIO 21.5; CALCIUM 9.1 mg/dL (8.2-10.2); CREATININE 0.93 mg/dL (0.60-1.10); POTASSIUM 4.2 mmol/L (3.5-5.1); TOTAL PROTEIN 6.2 g/dL (5.8-8.1)
== END 2016-09-12 13:11 | disposition home or self-care (01) ==
LOC: LAB 13:10
PROVIDERS: ATTEND Internal Medicine Hematology & Oncology
DX: D75.1 Secondary polycythemia (principal)
CPT/HCPCS: 36415; 80053; 85025

== ENCOUNTER 2016-10-09 08:27 | Outpatient (RCR) ==
[2016-11-02 11:05] VITALS: BP 112/56
== END 2016-11-08 ==
LOC: CAR.REHAB 08:27
PROVIDERS: ATTEND Internal Medicine
DX: I25.810 Atherosclerosis of coronary artery bypass graft(s) without angina pectoris (principal); Z95.1 Presence of aortocoronary bypass graft
CPT/HCPCS: 93797

== ENCOUNTER 2016-10-09 12:42 | Outpatient (CLI) ==
--- NOTE | 2016-10-09 13:25 | CT ---
EXAM: CT of the chest without contrast History: Follow-up lung nodules Comparison: Chest CT 05/22/2016 Technique: Multiplanar CT images through the thorax were obtained without the administration of IV contrast Findings: Heart is borderline enlarged. No pericardial effusion. Coronary calcifications. Great vessels are grossly unremarkable. No pathologically enlarged axillary lymph nodes. Calcified mediastinal and hilar lymph nodes again noted. No pneumothorax. Spiculated opacity within the right upper lobe is m ore noticeable now measuring 1.8 cm x 1.1 cm to 3.2 cm. Emphysema. There is a new 1.6 cm x 1.7 cm s piculated left lower lobe pleural-based nodule. New 8 mm left lower lobe nodule. Scattered areas of subsegmental atelectasis again noted. Within the visualized upper abdomen, status post cholecystectomy. Calcified granulomas seen within the spleen. No acute osseous abnormalities. Impression: 1. Increasing size of spiculated right upper lobe nodule is suspicious for malignancy. 2. New spiculated pleural-based left lower lobe nodule is also suspicious for malignancy. 3. New left lower lobe 8 mm nodule is also suspicious for malignancy. 4. Emphysema. 5. Coronary artery disease. 6. Old granulomatous disease.
== END 2016-10-09 12:43 | disposition home or self-care (01) ==
LOC: RAD 12:42
PROVIDERS: ATTEND Internal Medicine Pulmonary Disease
DX: J47.0 Bronchiectasis with acute lower respiratory infection (principal)

== ENCOUNTER 2016-10-10 13:05 | Outpatient (CLI) ==
[2016-10-10 13:24] LABS: BASOPHILS % (AUTO) 0.3 % (0.0-3.0); EOSINOPHILS # (AUTO) 0.1 K/ul (0.0-0.7); EOSINOPHILS % (AUTO) 2.2 % (0.0-7.0); HEMATOCRIT 42.8 % (42.0-52.0); HEMOGLOBIN 14.6 g/dl (14.0-18.0); IMMATURE GRANULOCYTE % (AUTO) 0.5 % (0.0-5.0); LYMPHOCYTES # (AUTO) 1.6 K/uL (0.60-3.4); LYMPHOCYTES % (AUTO) 24.7 (10.0-50.0); MEAN CORPUSCULAR HEMOGLOBIN 27.9 pg (27.0-31.0); MEAN CORPUSCULAR HGB CONC 34.1 (31.8-35.4); MEAN CORPUSCULAR VOLUME 81.7 fl (80.0-94.0); MONOCYTES # (AUTO) 0.6 K/uL (0.4-2.0); MONOCYTES % (AUTO) 9.5 (0-10); NEUTROPHILS % (AUTO) 62.8; PLATELET COUNT 242 10^3/uL (140-440); RED BLOOD COUNT 5.24 10^6/ul (4.70-6.10); WHITE BLOOD COUNT 6.32 K/ul (4.2-10.2)
== END 2016-10-10 13:06 | disposition home or self-care (01) ==
LOC: LAB 13:05
PROVIDERS: ATTEND Internal Medicine Hematology & Oncology
DX: D75.1 Secondary polycythemia (principal)
CPT/HCPCS: 36415; 85025

== ENCOUNTER 2016-10-25 06:33 | Outpatient (CLI) ==
--- NOTE | 2016-10-25 12:31 | ECHO2D ---
Date of Exam: 10/25/16 Ordering Physician: HAILEY SCHULTE Reason for Echo: SOB, CAD WITH STENTS M-Mode Normal Adult Results LV Dimensions Normal Adult Results AoV Opening excursions >1.6 >1.6 LVEDD-base- 3.5-5.8 4.5 Ao root dimensions 2.0-3.7 3.4 LVESD-base- 3.1-4.6 L. Atrium dimensions 1.9-3.8 3.6 Post. Wall thickness 0.8-1.1 1.2 IV septum (thickness) 0.7-1.2 1.3 Post. Wall excursion 0.72-1.3 NORMAL Septal motion NORMAL Systolic motion R. Ventricular cavity 1.5-2.0 NORMAL LVEF 60% 65% Paradoxical septal wall motion NORMAL 2-D : 2-D M Mode Echocardiogram was performed using apical four chamber and left parasternal long and short axis views. Mitral, tricuspid and aortic valves appear to be normal. Contractility of the left ventricle seems to be normal, so is the cavity size. Left atrial cavity size and aortic root appear to be normal. There is no pericardial effusion. There is no thrombus noted in the left ventricular or left aortic cavity. No mitral valve prolapse noted. M-MODE: MV: NORMAL AV: NORMAL TV: NORMAL PV: CHAMBER SIZE: NORMAL WALL MOTION: NORMAL PERICARDIUM: NORMAL INTERPRETATION: 1. BORDERLINE LEFT VENTRICULAR HYPERTROPHY 2. NORMAL VALVES 3. NORMAL LEFT VENTRICULAR CONTRACTILITY MTDD
== END 2016-10-25 06:34 | disposition home or self-care (01) ==
LOC: CAR 06:33
PROVIDERS: ATTEND Internal Medicine
DX: R06.02 Shortness of breath (principal); I25.10 Atherosclerotic heart disease of native coronary artery without angina pectoris
CPT/HCPCS: 93005; 93010

== ENCOUNTER 2016-10-26 06:44 | Outpatient (CLI) ==
--- NOTE | 2016-10-26 12:23 | STRESSMOD ---
Ordering Physician: HAILEY SCHULTE Date of Test: 10/26/16 Medical History: SOB, CAD Current Medications: SPIRIVA, SYSTANE, BENICAR, LASIX, NEXIUM, LEXAPRO, CLONIDINE, ALPRAZOLAM Physical Findings: S1, S2, NO S3 Resting EKG: SINUS RHYTHM/ NO ACUTE CHANGES Target Heart Rate: 121/143 STAGE MPH/GRADE HEART RATE BPM BLOOD PRESSURE mmhg RHYTHM S-T SEGMENT UP DOWN SYMPTOMS,COMMENTS At Rest 70 118/70 SR X NONE 1 1.7/0% 91 121/70 SR X NONE 2 1.7/5% 100 128/80 SR X NONE 3 1.7/10% 4 2.5/12% 5 3.4/14% 6 4.2/16% 7 5.18% Immediately after 110 SR X SHORT OF BREATH Total Time: 7:00 Maximum Heart Rate Reached: 110 Reason for Termination: SHORT OF BREATH 3 MINUTES POST EXERCISE: HR 68 BPM, BP 130/68 MMHG INTERPRETATION: 85% OXYGEN SATURATION WITH 3 LPM NASAL CANULA WITH EXERCISE -AT REST 92% OXYGEN SATURATION WITH 2LPM NC METS 4.6 1. NO EVIDENCE OF ISCHEMIA BY ST-T WAVE 2. NO CHEST PAIN OR CHEST DISCOMFORT 3. NO ARRHYTHMIAS 4. BLOOD PRESSURE ADEQUATE RESTING AND POST EXERCISE--NORMAL LEFT VENTRICULAR CONTRACTILITY BY ECHO COPY TO ZAID TAVERAS
--- NOTE | 2016-10-26 12:27 | ECHOSTRESS ---
Date of Exam: 10/26/16 Ordering Physician: HAILEY SCHULTE Reason for Echo: SOB, CAD, STRESS TEST--NO ISCHEMIA M-Mode Normal Adult Results LV Dimensions Normal Adult Results AoV Opening excursions >1.6 LVEDD-base- 3.5-5.8 Ao root dimensions 2.0-3.7 LVESD-base- 3.1-4.6 L. Atrium dimensions 1.9-3.8 Post. Wall thickness 0.8-1.1 IV septum (thickness) 0.7-1.2 Post. Wall excursion 0.72-1.3 Septal motion Systolic motion R. Ventricular cavity 1.5-2.0 LVEF 60% Paradoxical septal wall motion 2-D: NORMAL LEFT VENTRICULAR CONTRACTILITY--RESTING AND POST EXERCISE M-MODE: MV: AV: TV: PV: CHAMBER SIZE: WALL MOTION: NORMAL LEFT VENTRICULAR CONTRACTILITY--RESTING AND POST EXERCISE PERICARDIUM: INTERPRETATION: 1. NORMAL LEFT VENTRICULAR CONTRACTILITY--RESTING AND POST EXERCISE MTDD
== END 2016-10-26 06:45 ==
LOC: CAR 06:44
PROVIDERS: ATTEND Internal Medicine
DX: R06.02 Shortness of breath (principal); I25.10 Atherosclerotic heart disease of native coronary artery without angina pectoris

== ENCOUNTER 2016-11-04 04:32 | Outpatient (CLI) | END 2016-11-04 04:33 | disposition short-term general hospital (02) | LOC: AMBL 04:32 | PROVIDERS: ATTEND Internal Medicine Geriatric Medicine | DX: J44.1 Chronic obstructive pulmonary disease with (acute) exacerbation (principal); R51 Headache; Z99.81 Dependence on supplemental oxygen ==

== ENCOUNTER 2016-11-07 13:13 | Outpatient (CLI) ==
[2016-11-07 13:30] LABS: BASOPHILS % (AUTO) 0.1 % (0.0-3.0); HEMATOCRIT 45.7 % (42.0-52.0); HEMOGLOBIN 15.1 g/dl (14.0-18.0); IMMATURE GRANULOCYTE % (AUTO) 0.8 % (0.0-5.0); LYMPHOCYTES # (AUTO) 1.1 K/uL (0.60-3.4); LYMPHOCYTES % (AUTO) 11.8 (10.0-50.0); MEAN CORPUSCULAR HEMOGLOBIN 27.8 pg (27.0-31.0); MONOCYTES # (AUTO) 0.6 K/uL (0.4-2.0); MONOCYTES % (AUTO) 6.7 (0-10); NEUTROPHILS # (AUTO) 7.3 K/ul (2.0-6.9); NEUTROPHILS % (AUTO) 80.6; PLATELET COUNT 242 10^3/uL (140-440); RED BLOOD COUNT 5.44 10^6/ul (4.70-6.10); WHITE BLOOD COUNT 9.04 K/ul (4.2-10.2)
== END 2016-11-07 13:14 | disposition home or self-care (01) ==
LOC: LAB 13:13
PROVIDERS: ATTEND Internal Medicine Hematology & Oncology
DX: D75.1 Secondary polycythemia (principal)
CPT/HCPCS: 36415; 85025

== ENCOUNTER 2016-11-09 07:23 | Outpatient (RCR) ==
[2016-12-07 10:54] VITALS: BP 128/62
== END 2016-12-08 ==
LOC: CAR.REHAB 07:23
PROVIDERS: ATTEND Internal Medicine
DX: I25.810 Atherosclerosis of coronary artery bypass graft(s) without angina pectoris (principal); Z95.5 Presence of coronary angioplasty implant and graft
CPT/HCPCS: 93797

== ENCOUNTER 2016-12-05 13:06 | Outpatient (CLI) ==
[2016-12-05 13:45] LABS: BASOPHILS % (AUTO) 0.4 % (0.0-3.0); EOSINOPHILS # (AUTO) 0.2 K/ul (0.0-0.7); EOSINOPHILS % (AUTO) 4.1 % (0.0-7.0); HEMATOCRIT 43.4 % (42.0-52.0); IMMATURE GRANULOCYTE % (AUTO) 0.5 % (0.0-5.0); MEAN CORPUSCULAR HEMOGLOBIN 29.4 pg (27.0-31.0); MEAN CORPUSCULAR HGB CONC 34.6 (31.8-35.4); MEAN CORPUSCULAR VOLUME 84.9 fl (80.0-94.0); MONOCYTES # (AUTO) 0.7 K/uL (0.4-2.0); NEUTROPHILS # (AUTO) 2.7 K/ul (2.0-6.9); PLATELET COUNT 222 10^3/uL (140-440); RED BLOOD COUNT 5.11 10^6/ul (4.70-6.10); WHITE BLOOD COUNT 5.65 K/ul (4.2-10.2)
== END 2016-12-05 13:07 | disposition home or self-care (01) ==
LOC: LAB 13:06
PROVIDERS: ATTEND Internal Medicine Hematology & Oncology
DX: D75.1 Secondary polycythemia (principal)
CPT/HCPCS: 36415; 85025

== ENCOUNTER 2016-12-25 09:14 | Inpatient (IN) ==
[2016-12-25] MEDS ORDERED: DUONEB NEB STA (09:22)
[2016-12-25] MEDS ORDERED: SOLU-MEDROL 125 MG IVP STA (09:22)
[2016-12-25 09:26] LABS: ABG BASE EXCESS -1 (-2.0-2.0); ABG HCO3 24.6 (22.0-26.0); ABG PCO2 46.1 mmHg (35-45); ABG PH 7.335 (7.35-7.45); ABG TCO2 26 (22.0-28.0)
[2016-12-25 09:40] LABS: BASOPHILS % (AUTO) 0.3 % (0.0-3.0); EOSINOPHILS # (AUTO) 0.9 K/ul (0.0-0.7); EOSINOPHILS % (AUTO) 11.6 % (0.0-7.0); HEMATOCRIT 46.9 % (42.0-52.0); HEMOGLOBIN 15.4 g/dl (14.0-18.0); IMMATURE GRANULOCYTE % (AUTO) 0.3 % (0.0-5.0); LYMPHOCYTES # (AUTO) 1.4 K/uL (0.60-3.4); LYMPHOCYTES % (AUTO) 17.6 (10.0-50.0); MEAN CORPUSCULAR HEMOGLOBIN 28.4 pg (27.0-31.0); MEAN CORPUSCULAR HGB CONC 32.8 (31.8-35.4); MEAN CORPUSCULAR VOLUME 86.4 fl (80.0-94.0); MONOCYTES # (AUTO) 0.8 K/uL (0.4-2.0); MONOCYTES % (AUTO) 10.9 (0-10); NEUTROPHILS # (AUTO) 4.6 K/ul (2.0-6.9); NEUTROPHILS % (AUTO) 59.3; PLATELET COUNT 210 10^3/uL (140-440); RED BLOOD COUNT 5.43 10^6/ul (4.70-6.10); WHITE BLOOD COUNT 7.68 K/ul (4.2-10.2)
--- NOTE | 2016-12-25 09:53 | DI ---
EXAM: Single-view chest HISTORY: Dyspnea COMPARISON: CT scan thorax 10/09/2016 FINDINGS: The heart is normal in size. Atherosclerotic changes are seen involving the aortic arch. There are moderate emphysematous changes with upper lobe bullous changes. Minor fissure has a convex upper margin which may be related to hyperinflation right middle lobe.. Benign granulomatous change s noted bilaterally.. Calcified lymph nodes are seen in the right suprahilar region. There is an ill -defined opacity seen overlying the anterior aspect of the right first rib. Subsegmental atelectasis or scarring is noted at the left lung base. Blunting of the right lateral costophrenic angle. IMPRESSION: Emphysematous changes with upper lobe bullous changes. Ill-defined opacity right upper lobe corresponding to spiculated mass seen on prior CT. Left basilar atelectasis versus scarring. Mild blunting right lateral costophrenic angle. Superior bowing of the minor fissure as described.
[2016-12-25 10:01] LABS: FLU INTERNAL QC INTERNAL QC VALID; RAPID FLU A NEGATIVE (NEGATIVE)
[2016-12-25 10:02] LABS: RAPID FLU B NEGATIVE (NEGATIVE)
[2016-12-25 10:16] LABS: ALANINE AMINOTRANSFERASE 16 U/L (12-78); ALBUMIN 3.8 g/dL (3.4-5.0); ALBUMIN/GLOBULIN RATIO 1.19; ALKALINE PHOSPHATASE 73 U/L (56-119); ANION GAP 14.5; ASPARTATE AMINO TRANSFERASE 24 U/L (15-37); BLOOD UREA NITROGEN 13 mg/dL (7-18); CALCIUM 9.4 mg/dL (8.2-10.2); CARBON DIOXIDE 24 mmol/L (23-31); CHLORIDE 100 mmol/L (98-107); CREATINE KINASE 124 U/L; CREATININE 1.14 mg/dL (0.60-1.10); GLUCOSE 90 mg/dL (82-115); POTASSIUM 4.5 mmol/L (3.5-5.1); SODIUM 134 mmol/L (136-145)
[2016-12-25 10:22] LABS: CREATINE KINASE MB 4.1 ng/ml (0.0-3.6)
--- NOTE | 2016-12-25 10:43 | ED.PDOC ---
General ED Provider: Dr. RICARDA GRIDER Chief Complaint: Shortness of Air Stated Complaint: short of air Time Seen by Physician: 09:19 Mode of Arrival: Wheelchair Information Source: Patient Exam Limitations: No limitations Primary Care Provider: HALIEY SCHULTE Nursing and Triage Documentation Reviewed and Agree: Yes Respiratory Complaint Exam - Shortness of Air Complaint/Exam Onset/Duration: 1 day Symptoms Are: Still present Timing: Intermittent Initial Severity: Moderate Current Severity: Mild Character: Reports: Dyspnea on exertion Aggravating: Reports: None Alleviating: Reports: Bronchodilators, Upright position, Spontaneous resolution Associated Signs and Symptoms: Reports: Cough, Wheezing, Nasal congestion. Denies: Chest pain with cough, Chest pain, Fever, Chills, Diaphoresis, Dizziness , Calf pain, Calf swelling, Edema, Rapid breathing, Labored breathing, Decreased intake Related History: Reports: Similar episode History of Healthcare-Acquired Pneumonia: No Pulmonary Embolism Risk Factors: Reports: Bedrest Cardiac Risk Factors: Reports: Hypertension (ckd) Pseudomonas Risk Factors: Reports: Chronic Lung Disease Tuberculosis Risk Factors: Reports: Chronic Resp. Faliure Home Oxygen Use: Yes (2l) Recent Stress Test: No Recent Echo/LV Function: No Stridor Present: No Tracheal Deviation: No Subcutaneous Emphysema: No Accessory Muscle Use: No Retractions: Not Present Diminished Breath Sounds: Yes Prolonged Expiratory Phase: No Unable to Speak Full Sentences: No Fatigue: No Leg Swelling: No Nohemy's Sign Present: No Grunting Respirations: No Kussmaul Respirations: No Differential Diagnoses: Asthma, Pulmonary Edema, COPD Exacerbation, Pneumonia Review of Systems - Review Of Systems Constitutional: Reports: Malaise, Weakness Eyes: Reports: No symptoms Ears, Nose, Mouth, Throat: Reports: No symptoms Respiratory: Reports: Cough, Wheezing Cardiac: Reports: No symptoms GI: Reports: No symptoms : Reports: No symptoms Musculoskeletal: Reports: No symptoms Skin: Reports: No symptoms Neurological: Reports: No symptoms Endocrine: Reports: No symptoms Hematologic/Lymphatic: Reports: No symptoms All Other Systems: Reviewed and Negative Past Medical History - Past Medical History Previously Healthy: No Endocrine: Reports: None Cardiovascular: Reports: None Respiratory: Reports: COPD Hematological: Reports: None Gastrointestinal: Reports: None Genitourinary: Reports: CKD Neuro/Psych: Reports: None Musculoskeletal: Reports: None Cancer: Reports: None - Surgical History General Surgical History: Reports: None - Family History Family History: Reports: None - Social History Smoking Status: Former smoker Hx Substance Use: No Alcohol Screening: None Physical Exam - Physical Exam Appearance: Well-appearing, No pain distress, Well-nourished Eyes: ABDIAS, EOMI, Conjunctiva clear ENT: Ears normal, Nose normal, Oropharynx normal Respiratory: Airway patent, Breath sounds clear, Breath sounds equal, Respirations nonlabored, Rhonchi Cardiovascular: RRR, Pulses normal, No rub, No murmur GI/: Soft, Nontender, No masses, Bowel sounds normal, No Organomegaly Musculoskeletal: Normal strength, ROM intact, No edema, No calf tenderness Skin: Warm, Dry, Normal color Neurological: Sensation intact, Motor intact, Reflexes intact, Cranial nerves intact, Alert, Oriented Psychiatric: Affect appropriate, Mood appropriate Interpretation - Radiology Interpretation Radiology Interpretation By: Radiologist Radiology Results: No acute changes Physician Notification - Case Discussed Physician Notified: tico holbrook Time of Notification: 10:44 Admit To: Inpatient Critical Care Note - Critical Care Note Total Time (mins): 0 Course - Course Hematology/Chemistry: 12/25/16 09:20 12/25/16 09:20 Orders, Labs, Meds: Lab Review 12/25/16 12/25/16 12/25/16 09:20 09:20 09:20 WBC 7.68 RBC 5.43 Hgb 15.4 Hct 46.9 MCV 86.4 MCH 28.4 MCHC 32.8 RDW Coeff of Bhaskar 15.8 H Plt Count 210 Immature Gran % (Auto) 0.3 Neut % (Auto) 59.3 Lymph % (Auto) 17.6 Hays % (Auto) 10.9 H Eos % (Auto) 11.6 H Baso % (Auto) 0.3 Immature Gran # (Auto) 0.0 Neut # 4.6 Lymph # 1.4 Hays # 0.8 Eos # 0.9 H Baso # 0.0 Puncture Site O2 Saturation ABG pH ABG pCO2 ABG pO2 ABG HCO3 ABG Total CO2 ABG Base Excess Albino Test O2 Delivery Device Oxygen Liter Flow FiO2 % Sodium 134 L Potassium 4.5 Chloride 100 Carbon Dioxide 24 Anion Gap 14.5 BUN 13 Creatinine 1.14 H Estimated GFR (MDRD) 62.00 BUN/Creatinine Ratio 11.40 Glucose 90 Calcium 9.4 Total Bilirubin 0.50 AST 24 ALT 16 Alkaline Phosphatase 73 Total Creatine Kinase 124 CK-MB (CK-2) 4.1 H CK-MB (CK-2) % 3.73805 Troponin I < 0.0100 B-Natriuretic Peptide 20 Total Protein 7.0 Albumin 3.8 Globulin 3.2 Albumin/Globulin Ratio 1.19 Influenza A (Rapid) Influenza B (Rapid) 12/25/16 12/25/16 09:22 09:25 WBC RBC Hgb Hct MCV MCH MCHC RDW Coeff of Bhaskar Plt Count Immature Gran % (Auto) Neut % (Auto) Lymph % (Auto) Hays % (Auto) Eos % (Auto) Baso % (Auto) Immature Gran # (Auto) Neut # Lymph # Hays # Eos # Baso # Puncture Site Rr O2 Saturation 91.0 L ABG pH 7.335 L ABG pCO2 46.1 H ABG pO2 66.0 L ABG HCO3 24.6 ABG Total CO2 26 ABG Base Excess -1 Albino Test + O2 Delivery Device Nc Oxygen Liter Flow 2.00 FiO2 % 28.0 Sodium Potassium Chloride Carbon Dioxide Anion Gap BUN Creatinine Estimated GFR (MDRD) BUN/Creatinine Ratio Glucose Calcium Total Bilirubin AST ALT Alkaline Phosphatase Total Creatine Kinase CK-MB (CK-2) CK-MB (CK-2) % Troponin I B-Natriuretic Peptide Total Protein Albumin Globulin Albumin/Globulin Ratio Influenza A (Rapid) Negative Influenza B (Rapid) Negative Orders Category Date Time Status ADMIT PATIENT INPATIENT .TO [facility] (MONITORED BED) ADMISSION 12/25/16 10: 37 Ordered ABG DRAW REQUEST Stat CARDIO 12/25/16 09:22 Completed EKG-(ED ONLY) Stat CARDIO 12/25/16 09:21 Completed EKG-(IP & OP ONLY) DAILY CARDIO 12/26/16 06:00 Ordered EKG-(IP & OP ONLY) DAILY CARDIO 12/27/16 06:00 Ordered EKG-(IP & OP ONLY) DAILY CARDIO 12/28/16 06:00 Ordered NEBULIZER TREATMENT Stat CARDIO 12/25/16 09:22 Ordered NEBULIZER TREATMENT Stat CARDIO 12/25/16 10:41 Ordered OXYGEN Routine CARDIO 12/25/16 10:38 Ordered ACTIVITY .Complete BR CARE 12/25/16 10:37 Ordered INCISION/WOUND CARE Q6HR CARE 12/25/16 10:37 Ordered INTAKE & OUTPUT Q8HR CARE 12/25/16 10:37 Ordered TELEMETRY MONITORING TELE CARE 12/25/16 10:38 Ordered VITAL SIGNS Q8HR CARE 12/25/16 10:37 Ordered REGULAR DIET DIETARY 12/25/16 Lunch Ordered ED IV/MEDIPORT/POWERPORT .ONCE EMERGENCY 12/25/16 09:21 Active ABG Stat LAB 12/25/16 09:22 Completed B-TYPE NATRIURETIC PEPTIDE Stat LAB 12/25/16 09:20 Completed CBC W/ AUTO DIFF DAILY@0600 LAB 12/26/16 06:00 Ordered CBC W/ AUTO DIFF DAILY@0600 LAB 12/27/16 06:00 Ordered CBC W/ AUTO DIFF DAILY@0600 LAB 12/28/16 06:00 Ordered CBC W/ AUTO DIFF DAILY@0600 LAB 12/29/16 06:00 Ordered CBC W/ AUTO DIFF DAILY@0600 LAB 12/30/16 06:00 Ordered CBC W/ AUTO DIFF DAILY@0600 LAB 12/31/16 06:00 Ordered CBC W/ AUTO DIFF DAILY@0600 LAB 01/01/17 06:00 Ordered CBC W/ AUTO DIFF DAILY@0600 LAB 01/02/17 06:00 Ordered CBC W/ AUTO DIFF DAILY@0600 LAB 01/03/17 06:00 Ordered CBC W/ AUTO DIFF DAILY@0600 LAB 01/04/17 06:00 Ordered CBC W/ AUTO DIFF DAILY@0600 LAB 01/05/17 06:00 Ordered CBC W/ AUTO DIFF DAILY@0600 LAB 01/06/17 06:00 Ordered CBC W/ AUTO DIFF DAILY@0600 LAB 01/07/17 06:00 Ordered CBC W/ AUTO DIFF DAILY@0600 LAB 01/08/17 06:00 Ordered CBC W/ AUTO DIFF DAILY@0600 LAB 01/09/17 06:00 Ordered CBC W/ AUTO DIFF DAILY@0600 LAB 01/10/17 06:00 Ordered CBC W/ AUTO DIFF DAILY@0600 LAB 01/11/17 06:00 Ordered CBC W/ AUTO DIFF DAILY@0600 LAB 01/12/17 06:00 Ordered CBC W/ AUTO DIFF DAILY@0600 LAB 01/13/17 06:00 Ordered CBC W/ AUTO DIFF DAILY@0600 LAB 01/14/17 06:00 Ordered CBC W/ AUTO DIFF Stat LAB 12/25/16 09:20 Completed COMPREHENSIVE METABOLIC PANEL DAILY@0600 LAB 12/26/16 06:00 Ordered COMPREHENSIVE METABOLIC PANEL DAILY@0600 LAB 12/27/16 06:00 Ordered COMPREHENSIVE METABOLIC PANEL DAILY@0600 LAB 12/28/16 06:00 Ordered COMPREHENSIVE METABOLIC PANEL DAILY@0600 LAB 12/29/16 06:00 Ordered COMPREHENSIVE METABOLIC PANEL DAILY@0600 LAB 12/30/16 06:00 Ordered COMPREHENSIVE METABOLIC PANEL DAILY@0600 LAB 12/31/16 06:00 Ordered COMPREHENSIVE METABOLIC PANEL DAILY@0600 LAB 01/01/17 06:00 Ordered COMPREHENSIVE METABOLIC PANEL DAILY@0600 LAB 01/02/17 06:00 Ordered COMPREHENSIVE METABOLIC PANEL DAILY@0600 LAB 01/03/17 06:00 Ordered COMPREHENSIVE METABOLIC PANEL DAILY@0600 LAB 01/04/17 06:00 Ordered COMPREHENSIVE METABOLIC PANEL DAILY@0600 LAB 01/05/17 06:00 Ordered COMPREHENSIVE METABOLIC PANEL DAILY@0600 LAB 01/06/17 06:00 Ordered COMPREHENSIVE METABOLIC PANEL DAILY@0600 LAB 01/07/17 06:00 Ordered COMPREHENSIVE METABOLIC PANEL DAILY@0600 LAB 01/08/17 06:00 Ordered COMPREHENSIVE METABOLIC PANEL DAILY@0600 LAB 01/09/17 06:00 Ordered COMPREHENSIVE METABOLIC PANEL DAILY@0600 LAB 01/10/17 06:00 Ordered COMPREHENSIVE METABOLIC PANEL DAILY@0600 LAB 01/11/17 06:00 Ordered COMPREHENSIVE METABOLIC PANEL DAILY@0600 LAB 01/12/17 06:00 Ordered COMPREHENSIVE METABOLIC PANEL DAILY@0600 LAB 01/13/17 06:00 Ordered COMPREHENSIVE METABOLIC PANEL DAILY@0600 LAB 01/14/17 06:00 Ordered COMPREHENSIVE METABOLIC PANEL Stat LAB 12/25/16 09:20 Completed CREATINE KINASE Q8H LAB 12/25/16 16:45 Ordered CREATINE KINASE Q8H LAB 12/26/16 00:45 Ordered CREATINE KINASE Stat LAB 12/25/16 09:20 Completed MOLECULAR GROUP A STREP Stat LAB 12/25/16 09:25 Results RAPID FLU A/B Stat LAB 12/25/16 09:25 Completed SPUTUM CULTURE Stat LAB 12/25/16 09:50 Received STREP SCREEN Stat LAB 12/25/16 09:25 Results TROPONIN I Q8H LAB 12/25/16 16:45 Ordered TROPONIN I Q8H LAB 12/26/16 00:45 Ordered TROPONIN I Stat LAB 12/25/16 09:20 Completed 0.9 % Sodium Chloride [Saline Flush] MEDS 12/25/16 09:21 Active 1 syr IVF PRN PRN Ceftriaxone Sodium [Rocephin] 1 gm MEDS 12/26/16 09:00 Ordered 0.9 % Sodium Chloride [Sodium Chloride] 50 ml IV DAILY Ipratropium/Albuterol Neb [Duoneb] MEDS 12/25/16 09:22 Discontinued 1 vial NEB ONCE STA Ipratropium/Albuterol Neb [Duoneb] MEDS 12/25/16 12:00 Ordered 1 vial NEB RTQ6H Methylprednisolone Sod Succ/Pf [Solu-Medrol 125 mg] MEDS 12/25/16 09:22 Discontinued 125 mg IVP ONCE STA Methylprednisolone Sod Succ/Pf [Solu-Medrol 40 mg] MEDS 12/25/16 21:00 Ordered 80 mg IVP Q12HR Sodium Chloride 0.9% [Sodium Chloride] 1,000 ml MEDS 12/25/16 11:00 Ordered IV 75 mls/hr CHEST, 1V AP ONLY Stat RADS 12/25/16 09:21 Completed Medications Generic Name Dose Route Start Last Admin Trade Name Freq PRN Reason Stop Dose Admin Sodium Chloride 1,000 mls @ 75 mls/hr 12/25/16 11:00 Sodium Chloride IV .[id number] BANDAR Ceftriaxone Sodium 1 gm/ 50 mls @ 75 mls/hr 12/26/16 09:00 Sodium Chloride IV DAILY BANDAR Methylprednisolone Sodium Succinate 80 mg 12/25/16 21:00 Solu-Medrol 40 Mg IVP Q12HR BANDAR Sodium Chloride 1 syr 12/25/16 09:21 12/25/16 09:47 Saline Flush IVF 1 syr PRN PRN Administration To flush IV Discontinued Medications Generic Name Dose Route Start Last Admin Trade Name Freq PRN Reason Stop Dose Admin Albuterol/Ipratropium 1 vial 12/25/16 09:22 12/25/16 09:26 Duoneb NEB 12/25/16 09:23 1 vial ONCE STA Administration Methylprednisolone Sodium Succinate 125 mg 12/25/16 09:22 12/25/16 09:47 Solu-Medrol 125 Mg IVP 12/25/16 09:23 125 mg ONCE STA Administration Vital Signs: Temp Pulse Resp BP Pulse Ox 12/25/16 09:14 98.3 F 89 24 152/79 H 93 L Departure - Departure Time of Disposition: 10:44 Disposition: ADMITTED INPATIENT Discharge Problem: COPD exacerbation Instructions: COPD (Chronic Obstructive Pulmonary Disease) (ED) Condition: Good Pt referred to PMD for follow-up: Yes Additional Instructions: Please call your Family Physician as soon as possible to schedule a follow-up appointment. Allergies/Adverse Reactions: Allergies Iodinated Contrast- Oral and IV Dye Adverse Reaction (Verified 12/25/16 09:18) Home Medications: Ambulatory Orders Aspirin [Aspirin EC] 81 mg PO BEDTIME 04/23/14 Esomeprazole Magnesium [Nexium] 40 mg PO DAILY 04/23/14 Olmesartan Medoxomil [Benicar] 40 mg PO DAILY #1 tablet 05/07/14 Alprazolam 0.5 mg PO BID BREAKFAST&LUNCH 05/30/14 Clonidine HCl 0.1 mg PO BID 05/30/14 Escitalopram Oxalate [Lexapro] 10 mg PO DAILY 03/09/16 Polyethylene Glycol 3350 [Miralax] 17 gm PO DAILY 03/09/16 Ketotifen Fumarate [Itchy Eye] 1 drop EACHEYE BID PRN 03/12/16 Propylene Glycol [Systane Balance] 1 - 2 drop EACHEYE PRN PRN 03/12/16 Amlodipine Besylate [Norvasc] 5 mg PO BID 12/25/16 Fexofenadine HCl [Cait Allergy] 180 mg PO DAILY 12/25/16 Furosemide [Lasix] 20 mg PO MOWEFR 12/25/16 Guaifenesin [Mucinex] 600 mg PO QID 12/25/16 Tamsulosin HCl [Flomax] 0.4 mg PO DAILY 12/25/16 Tiotropium Br/Olodaterol HCl [Stiolto Respimat Inhal [place]] 2 puff IH DAILY
[2016-12-25] MEDS: DUONEB NEB SCH ×3 (11:28→22:00)
[2016-12-25 12:01] VITALS: BMI 25.3
--- NOTE | 2016-12-25 13:58 | HP ---
DATE OF SERVICE: 12/25/16 REASON FOR HOSPITALIZATION/HISTORY OF PRESENT ILLNESS: 76 year old male with long history of severe COPD, previous smoker presented to the emergency room complaining of cough and shortness of breath. He was no experiencing any fever. We then admitted. PAST MEDICAL HISTORY: Severe COPD, oxygen dependant History of pulmonary nodules on the right and on left that is followed by Dr. Morales History of Hyponatremia Chronic bronchitis Hypertension Anxiety Polycythemias Sleep apnea on oxygen BPH Severe degenerative disease Coronary artery disease with stent PAST SURGICAL HISTORY: Coronary artery disease with stent REVIEW OF SYSTEMS: CONSTITUTIONAL: No night sweats. Fatigue and weakness. No fever or chills. HEENT: Eyes: No visual changes. No eye pain. No eye discharge. ENT: No runny nose. No epistaxis. No sinus pain. No sore throat. No odynophagia. No ear pain. No congestion. RESPIRATORY: Cough, no congestion. No hemoptysis. Shortness of breath. CARDIOVASCULAR: No angina symptoms. No CHF symptoms. No atypical chest pain for CAD. No palpitations. No orthopnea. GASTROINTESTINAL: No abdominal pain. No nausea or vomiting. No diarrhea or constipation. No hematemesis. No hematochezia. Decreased appetite. GENITOURINARY: No urgency. No frequency. No dysuria. No hematuria. No obstructive symptoms. No discharge. No pain. No significant abnormal bleeding. MUSCULOSKELETAL: No musculoskeletal pain. No joint swelling. No arthritis. No redness. Full range of motion. NEUROLOGICAL: No headache. No neck pain. No syncope. No seizures. No dizziness. Alert and oriented. PSYCHIATRIC: Not anxious. No depression. No suicidal thoughts. No homicidal thoughts. SKIN: No rash. No lesions. No wounds. ENDOCRINE: No unexplained weight loss. No weight gain. HEMATOLOGIC/LYMPHATIC: No anemia. No purpura. No petechiae. No prolonged or excessive bleeding. No palpable lymph nodes. PERSONAL/FAMILY/SOCIAL HISTORY: Former smoker, he has quit for several years. He is and lives at home with his . He denies any alcohol or illicit drug use. He is retired. MEDICATIONS: Stiolto 2.5 two puffs once daily Flomax 0.4mg daily Lasix 20mg three times a week Lexapro 10mg daily Nexium 40mg daily Norvasc 5mg twice a day Clonidine 0.1mg twice a day Xanax 0.25mg two tablet twice a day Benicar 40mg daily Cait 180mg PO daily Aspirin 81mg daily ALLERGIES: No known allergies PHYSICAL EXAMINATION: HEENT: Head normocephalic, atraumatic. Eyes: Extraocular muscles are intact. Pupils are equal, round and reactive to light and accommodation. Ears: No lesions. Nose appeared normal. Throat: No exudate or erythema. NECK: Supple. No JVD, no carotid bruit. No lymphadenopathy or thyromegaly. LUNGS: Bilateral rhonchi. Severally diminished breath sounds bilaterally with mild expiratory wheezes. Percussion note normal. Chest symmetrical. HEART: S1, S2, no S3. No murmurs, clicks or rubs. No cyanosis or clubbing. No ascites. Pulses: Dorsalis pedis and posterior tibial pulses +1 to +2 both sides. ABDOMEN: Soft. Nontender. Bowel sounds active times four quadrants. No CVA tenderness. No mass felt. No Hepatosplenomegaly. EXTREMITIES: No edema. Full range of motion of all extremities, equal. NEUROLOGIC: No focal deficit. Cranial nerves II through XII are grossly intact. No headache, no double vision or headache. Alert and oriented. SKIN: Not dry. Intact. Turgor - normal. LYMPHATIC: No palpable lymph nodes/no lymphedema. MUSCULOSKELETAL: Normal joints with no swelling. Muscle tone is normal. LABS: x-ray of the chest shows changes associated with COPD and emphysema with upper lobe bullous changes and ill-defined opacity right upper lobe corresponding to mass on prior CT which was conducted in October 25, Left basilar atelectasis. BNP 20, Sodium 134, potassium 4.5, BUN 13, creatinine 1.14, glucose 90, AST 24, ALT 16, CK 124, CK-MB 4.1, Troponin less than 0.01, total protein 7, Alkaline phosphatase 73, Rapid flu both A and B are both negative. Strep is negative. ABG at 2 liters nasal cannula pH 7.335, pCO2 46, pO2 66, base excess of -1, bicarb 24.6, TCO2 26, O2 sat 91. WBC 7.6, hgb 15.4, hct 46.9, plt count 210. ASSESSMENT: 1. Acute bronchitis with COPD 2. Severe hyponatremia 3. Weakness 4. Severe COPD PLAN: 1. Will admit to the floor. 2. Routine telemetry 3. CBC and CMP daily 4. Will place on Rocephin 5. IV Solu-Cortef 6. O2 7. NEBS treatment Q 6 hours 8. Regular diet Will follow closely. TIME SPENT: More than 70 minutes. MTDD
[2016-12-25] MEDS: ROCEPHIN 1 GM in SODIUM CHLORIDE 50 ML IV SCH (14:20)
[2016-12-25] MEDS: XANAX PO SCH ×2 (14:21→20:29)
[2016-12-25] MEDS: SODIUM CHLORIDE 1,000 ML IV SCH (14:21)
[2016-12-25 17:21] LABS: CREATINE KINASE 101 U/L
[2016-12-25] MEDS: MUCINEX PO SCH ×2 (17:59→20:29)
[2016-12-25] MEDS: SOLU-CORTEF 250 MG IVP SCH (18:01)
[2016-12-25] MEDS ORDERED: XANAX ONE (20:24)
[2016-12-25] MEDS: NORVASC PO SCH (20:28)
[2016-12-25] MEDS: ASPIRIN EC PO SCH (20:29)
[2016-12-25] MEDS: CATAPRES PO SCH (20:29)
[2016-12-25] MEDS ORDERED: TORADOL IVP STA (20:46)
[2016-12-25] MEDS ORDERED: SOLU-MEDROL 125 MG IVP SCH (21:00)
[2016-12-25] MEDS ORDERED: SOLU-MEDROL 40 MG IVP SCH (21:00)
[2016-12-26 00:39] LABS: HEMATOCRIT 39.2 % (42.0-52.0); HEMOGLOBIN 13.3 g/dl (14.0-18.0); IMMATURE GRANULOCYTE % (AUTO) 0.4 % (0.0-5.0); LYMPHOCYTES # (AUTO) 0.4 K/uL (0.60-3.4); LYMPHOCYTES % (AUTO) 8.3 (10.0-50.0); MEAN CORPUSCULAR HEMOGLOBIN 29.2 pg (27.0-31.0); MEAN CORPUSCULAR HGB CONC 33.9 (31.8-35.4); MONOCYTES # (AUTO) 0.1 K/uL (0.4-2.0); MONOCYTES % (AUTO) 2.4 (0-10); NEUTROPHILS # (AUTO) 4.4 K/ul (2.0-6.9); NEUTROPHILS % (AUTO) 88.9; PLATELET COUNT 179 10^3/uL (140-440); RED BLOOD COUNT 4.56 10^6/ul (4.70-6.10); WHITE BLOOD COUNT 4.93 K/ul (4.2-10.2)
[2016-12-26 00:56] LABS: ALBUMIN/GLOBULIN RATIO 1.2; ANION GAP 12.9; BILIRUBIN,TOTAL 0.24 mg/dL (0.00-1.20); BUN/CREATININE RATIO 14.85; CALCIUM 8.8 mg/dL (8.2-10.2); CREATININE 1.01 mg/dL (0.60-1.10); POTASSIUM 3.9 mmol/L (3.5-5.1); TOTAL PROTEIN 5.5 g/dL (5.8-8.1)
[2016-12-26 01:03] LABS: CREATINE KINASE 70 U/L
[2016-12-26] MEDS: SOLU-CORTEF 250 MG IVP SCH ×5 (01:21→23:19)
[2016-12-26] MEDS: SODIUM CHLORIDE 1,000 ML IV SCH (04:07)
[2016-12-26] MEDS: DUONEB NEB SCH ×4 (05:34→20:49)
[2016-12-26] MEDS: LASIX TAB PO SCH (06:33)
[2016-12-26] MEDS: PROTONIX PO SCH (06:33)
[2016-12-26] MEDS: BENICAR PO SCH (08:39)
[2016-12-26] MEDS: MIRALAX PO SCH (08:39)
[2016-12-26] MEDS: ROCEPHIN 1 GM in SODIUM CHLORIDE 50 ML IV SCH (08:39)
[2016-12-26] MEDS: LEXAPRO PO SCH (08:40)
[2016-12-26] MEDS: ALLEGRA PO SCH (08:40)
[2016-12-26] MEDS: FLOMAX PO SCH (08:40)
[2016-12-26] MEDS: MUCINEX PO SCH ×4 (08:40→21:01)
[2016-12-26] MEDS: NORVASC PO SCH ×2 (08:41→21:01)
[2016-12-26] MEDS: CATAPRES PO SCH ×2 (08:41→21:01)
[2016-12-26] MEDS: XANAX PO SCH ×3 (08:41→21:01)
[2016-12-26] MEDS ORDERED: [UNRECOGNIZED DRUG - REMARK] PO SCH (09:00)
[2016-12-26] MEDS ORDERED: NON-FORMULARY MEDICATION (Olmesartan Medoxomil [Benicar] 40 MG) PO SCH ×22 (09:00)
[2016-12-26] MEDS ORDERED: NON-FORMULARY MEDICATION (Esomeprazole Magnesium [Nexium] 40 MG) PO SCH ×22 (09:00)
--- NOTE | 2016-12-26 09:33 | PCM.PROG ---
Attending Provider: ATTENDING PROVIDER: Dr. HAILEY SCHULTE DATE OF SERVICE: 12/26/16 SUBJECTIVE: This 76 year old WHITE/ M was hospitalized 12/25/16. The patient is hospitalized with COPD, bronchitis. Condition has improved. REVIEW OF SYSTEMS: CONSTITUTIONAL: No night sweats. No fatigue, malaise, lethargy. No fever or chills. HEENT: Eyes: No visual changes. No eye pain. No eye discharge. ENT: No runny nose. No epistaxis. No sinus pain. No odynophagia. No congestion. RESPIRATORY: Mild cough and congestion, had wheezing this morning but is clear. No hemoptysis. No shortness of breath. CARDIOVASCULAR: No angina symptoms. No CHF symptoms. No atypical chest pain for CAD. No palpitations. No orthopnea.. GASTROINTESTINAL: No abdominal pain. No nausea or vomiting. No diarrhea or constipation. No hematemesis. No hematochezia. GENITOURINARY: No urgency. No frequency. No dysuria. No hematuria. No obstructive symptoms. No discharge. No pain. No significant abnormal bleeding. MUSCULOSKELETAL: No musculoskeletal pain; no joint swelling. NEUROLOGICAL: Awake, alert, oriented to time, place and person. No headache. No neck pain. No syncope. No seizures. No dizziness. PSYCHIATRIC: Not anxious. No depression. No suicidal thoughts. No homicidal thoughts. SKIN: No rash. No lesions. No wounds. ENDOCRINE: No unexplained weight loss. No weight gain. HEMATOLOGIC/LYMPHATIC: No anemia. No purpura. No petechiae. No prolonged or excessive bleeding. No palpable lymph nodes. PHYSICAL EXAMINATION: GENERAL: The patient is awake, alert and oriented, sitting in chair in no distress. VITAL SIGNS: Temperature 96.6 F, Pulse 87, Respiratory Rate 16, BP 139/76, Pulse Ox 94% HEENT: Head normocephalic, atraumatic. Eyes: Extraocular muscles are intact. Pupils are equal, round and reactive to light and accommodation. Ears: No lesions. Nose appeared normal. Throat: No exudate or erythema. NECK: Supple. No JVD, no carotid bruit. No lymphadenopathy or thyromegaly. LUNGS: No wheeze, good air entry with harsh breath sounds. Percussion note normal. Chest symmetrical. HEART: S1, S2, no S3. No murmurs. No cyanosis or clubbing. No ascites. Pulses: Dorsalis pedis and posterior tibial pulses +1 to +2 both sides. ABDOMEN: Soft. Non-tender. Bowel sounds active. No CVA tenderness. No mass felt. EXTREMITIES: No pedal edema. Full range of motion of all extremities, equal. NEUROLOGIC: No focal deficit. Cranial nerves II through XII are grossly intact. No headache, no double vision or headache. SKIN: Not dry. Intact. Turgor-normal. LYMPHATIC: No palpable lymph nodes/no lymphedema. MUSCULOSKELETAL: Normal joints with no swelling. Muscle tone is normal. LAB REVIEW: 12/26/16 00:38 12/26/16 00:38 12/26/16 00:38: Sodium 134 L, Potassium 3.9, Chloride 104, Carbon Dioxide 21 L, Anion Gap 12.9, BUN 15, Creatinine 1.01, Estimated GFR (MDRD) 72.00, BUN/ Creatinine Ratio 14.85, Glucose 224 H D, Calcium 8.8, Total Bilirubin 0.24, AST 13 L, ALT 10 L, Alkaline Phosphatase 55 L, Total Protein 5.5 L, Albumin 3.0 L, Globulin 2.5, Albumin/Globulin Ratio 1.20 12/26/16 00:38: WBC 4.93, RBC 4.56 L, Hgb 13.3 L, Hct 39.2 L D, MCV 86.0, MCH 29.2, MCHC 33.9, RDW Coeff of Bhaskar 15.5 H, Plt Count 179, Immature Gran % (Auto) 0.4, Neut % (Auto) 88.9, Lymph % (Auto) 8.3 L, Victoria % (Auto) 2.4, Eos % (Auto) 0.0, Baso % (Auto) 0.0, Immature Gran # (Auto) 0.0, Neut # 4.4, Lymph # 0.4 L, Victoria # 0.1 L, Eos # 0.0, Baso # 0.0 12/26/16 00:38: Total Creatine Kinase 70, Troponin I < 0.0100 12/25/16 16:50: Total Creatine Kinase 101, Troponin I < 0.0100 ASSESSMENT: 1. Acute bronchitis/pneumonitis resolving clinically. 2. Lung mass, follows with Dr. Morales. 3. CAD stable. PLAN: 1. D/C IV fluids 2. D/C telemetry 3. Mucomyst, nebs Plan and coordination of the patient's care discussed in the presence of Service Writer and nurse. CONDITION: Stable SCRIBED BY: BEAR HOLLEY Process Architect scribed while in presence of service performed by Dr. HAILEY SCHULTE on 12/26/16 ([id number])
[2016-12-26] MEDS: MUCOMYST 20% NEB NEB SCH (20:49)
[2016-12-26] MEDS: ASPIRIN EC PO SCH (21:01)
[2016-12-27] MEDS: SOLU-CORTEF 250 MG IVP SCH ×4 (05:05→23:08)
[2016-12-27] MEDS: DUONEB NEB SCH ×4 (05:26→21:33)
[2016-12-27] MEDS: MUCOMYST 20% NEB NEB SCH ×2 (05:26→21:33)
[2016-12-27] MEDS: PROTONIX PO SCH (05:42)
[2016-12-27 06:04] LABS: BASOPHILS % (AUTO) 0.1 % (0.0-3.0); HEMATOCRIT 43.8 % (42.0-52.0); HEMOGLOBIN 14.8 g/dl (14.0-18.0); IMMATURE GRANULOCYTE % (AUTO) 0.6 % (0.0-5.0); LYMPHOCYTES # (AUTO) 0.7 K/uL (0.60-3.4); LYMPHOCYTES % (AUTO) 5.4 (10.0-50.0); MEAN CORPUSCULAR HEMOGLOBIN 28.8 pg (27.0-31.0); MEAN CORPUSCULAR HGB CONC 33.8 (31.8-35.4); MEAN CORPUSCULAR VOLUME 85.4 fl (80.0-94.0); MONOCYTES # (AUTO) 0.3 K/uL (0.4-2.0); MONOCYTES % (AUTO) 2.7 (0-10); NEUTROPHILS # (AUTO) 11.3 K/ul (2.0-6.9); NEUTROPHILS % (AUTO) 91.2; PLATELET COUNT 215 10^3/uL (140-440); RED BLOOD COUNT 5.13 10^6/ul (4.70-6.10); WHITE BLOOD COUNT 12.43 K/ul (4.2-10.2)
[2016-12-27 06:35] LABS: ALBUMIN 3.6 g/dL (3.4-5.0); ALBUMIN/GLOBULIN RATIO 1.2; ANION GAP 14.9; BILIRUBIN,TOTAL 0.33 mg/dL (0.00-1.20); BUN/CREATININE RATIO 18.55; CALCIUM 9.7 mg/dL (8.2-10.2); CREATININE 0.97 mg/dL (0.60-1.10); POTASSIUM 3.9 mmol/L (3.5-5.1); TOTAL PROTEIN 6.6 g/dL (5.8-8.1)
[2016-12-27] MEDS: ALLEGRA PO SCH (08:48)
[2016-12-27] MEDS: ROCEPHIN 1 GM in SODIUM CHLORIDE 50 ML IV SCH (08:48)
[2016-12-27] MEDS: MUCINEX PO SCH ×4 (08:49→20:18)
[2016-12-27] MEDS: LEXAPRO PO SCH (08:49)
[2016-12-27] MEDS: FLOMAX PO SCH (08:49)
[2016-12-27] MEDS: XANAX PO SCH ×3 (08:49→20:18)
[2016-12-27] MEDS: CATAPRES PO SCH ×2 (08:49→20:18)
[2016-12-27] MEDS: BENICAR PO SCH (08:49)
[2016-12-27] MEDS: NORVASC PO SCH ×2 (08:50→20:18)
[2016-12-27] MEDS: MIRALAX PO SCH (08:51)
[2016-12-27] MEDS: TUSSIONEX PO SCH ×2 (09:03→20:18)
--- NOTE | 2016-12-27 11:20 | PCM.PROG ---
Attending Provider: ATTENDING PROVIDER: Dr. HAILEY GONZALEZ This patient is seen with Debbie Garcia, Nurse Practitioner. DATE OF SERVICE: 12/27/16 SUBJECTIVE: This 76 year old WHITE/ M was hospitalized 12/25/16. The patient is sitting in chair, is alert. He is having trouble sleeping. He has been up walking, He did not sleep very well last night due to coughing and bronchospasm. He would like to bring in home percussion vest. REVIEW OF SYSTEMS: CONSTITUTIONAL: Fatigue. No night sweats. No fever or chills. HEENT: Eyes: No visual changes. No eye pain. No eye discharge. ENT: No runny nose. No epistaxis. No sinus pain. No odynophagia. No congestion. RESPIRATORY: Cough and congestion. No hemoptysis. Shortness of breath. CARDIOVASCULAR: No angina symptoms. No CHF symptoms. No atypical chest pain for CAD. No palpitations. No orthopnea.. GASTROINTESTINAL: No abdominal pain. No nausea or vomiting. No diarrhea or constipation. No hematemesis. No hematochezia. GENITOURINARY: No urgency. No frequency. No dysuria. No hematuria. No obstructive symptoms. No discharge. No pain. No significant abnormal bleeding. MUSCULOSKELETAL: No musculoskeletal pain; no joint swelling. NEUROLOGICAL: Awake, alert, oriented to time, place and person. No headache. No neck pain. No syncope. No seizures. No dizziness. PSYCHIATRIC: Not anxious. No depression. No suicidal thoughts. No homicidal thoughts. SKIN: No rash. No lesions. No wounds. ENDOCRINE: No unexplained weight loss. No weight gain. HEMATOLOGIC/LYMPHATIC: No anemia. No purpura. No petechiae. No prolonged or excessive bleeding. No palpable lymph nodes. PHYSICAL EXAMINATION: GENERAL: The patient is awake, alert and oriented,sitting in chair in no distress. VITAL SIGNS: Temperature 97.0 F, Pulse 82, Respiratory Rate 18, BP 141/77, Pulse Ox 97% HEENT: Head normocephalic, atraumatic. Eyes: Extraocular muscles are intact. Pupils are equal, round and reactive to light and accommodation. Ears: No lesions. Nose- nasal congestion. Throat: No exudate or erythema. NECK: Supple. No JVD, no carotid bruit. No lymphadenopathy or thyromegaly. LUNGS: Bilateral expiratory wheeze with significantly diminished breath sounds bilaterally. Percussion note normal. Chest symmetrical. HEART: S1, S2, no S3. No murmurs. No cyanosis or clubbing. No ascites. Pulses: Dorsalis pedis and posterior tibial pulses +1 to +2 both sides. ABDOMEN: Soft. Non-tender. Bowel sounds active. No CVA tenderness. No mass felt. EXTREMITIES: No edema. Full range of motion of all extremities, equal. NEUROLOGIC: No focal deficit. Cranial nerves II through XII are grossly intact. No headache, no double vision or headache. SKIN: Not dry. Intact. Turgor-normal. LYMPHATIC: No palpable lymph nodes/no lymphedema. MUSCULOSKELETAL: Normal joints with no swelling. Muscle tone is normal. LAB REVIEW: 12/27/16 04:35 12/27/16 04:35 12/27/16 04:35: Sodium 135 L, Potassium 3.9, Chloride 102, Carbon Dioxide 22 L, Anion Gap 14.9, BUN 18, Creatinine 0.97, Estimated GFR (MDRD) 75.00, BUN/ Creatinine Ratio 18.55, Glucose 125 H, Calcium 9.7, Total Bilirubin 0.33, AST 15 , ALT 13, Alkaline Phosphatase 58, Total Protein 6.6, Albumin 3.6, Globulin 3.0 , Albumin/Globulin Ratio 1.20 12/27/16 04:35: WBC 12.43 H D, RBC 5.13, Hgb 14.8, Hct 43.8, MCV 85.4, MCH 28.8 , MCHC 33.8, RDW Coeff of Bhaskar 16.0 H, Plt Count 215, Immature Gran % (Auto) 0.6 , Neut % (Auto) 91.2, Lymph % (Auto) 5.4 L, [place] % (Auto) 2.7, Eos % (Auto) 0.0 , Baso % (Auto) 0.1, Immature Gran # (Auto) 0.1, Neut # 11.3 H, Lymph # 0.7, [place] # 0.3 L, Eos # 0.0, Baso # 0.0 ASSESSMENT: 1. Acute bronchitis/pneumonitis resolving clinically. 2. Lung mass, follows with Dr. Morales. 3. CAD stable. PLAN: 1. Tussionex 1 teaspoon b.i.d. 2. Bring in home percussion vest 3. Encourage patient to be up and about Plan and coordination of the patient's care discussed in the presence of Quenching Machine Operator and nurse. CONDITION: Stable SCRIBED BY: Valentin TURCIOS scribed while in presence of service performed by Dr. Gonzalez/Debbie Garcia APRN on 12/27/16 ([id number])
--- NOTE | 2016-12-27 13:02 | PN ---
DATE OF SERVICE: 12/25/16 SUBJECTIVE: 76 year old white male was seen in the hospital admitted with bilateral wheezing and respiratory failure. The patient's condition has improved remarkably. His wheeze has practically gone. I saw him at approximately 3:30pm in his room. He was about to talk. PHYSICAL EXAMINATION: HEENT: Head normocephalic, atraumatic. Eyes: Extraocular muscles are intact. Pupils are equal, round and reactive to light and accommodation. Ears: No lesions. Nose appeared normal. Throat: No exudate or erythema. NECK: Supple. No JVD, no carotid bruit. No lymphadenopathy or thyromegaly. LUNGS: Decreased breath sounds but clear to auscultation. Percussion note normal. Chest symmetrical. HEART: S1, S2, no S3. No murmurs. No cyanosis or clubbing. No ascites. Pulses: Dorsalis pedis and posterior tibial pulses +1 to +2 both sides. ABDOMEN: Soft. Nontender. Bowel sounds active. No CVA tenderness. No mass felt. EXTREMITIES: No edema. Full range of motion of all extremities, equal. NEUROLOGIC: No focal deficit. Cranial nerves II through XII are grossly intact. No headache, no double vision or headache. SKIN: Not dry. Intact. Turgor - normal. LYMPHATIC: No palpable lymph nodes/no lymphedema. MUSCULOSKELETAL: Normal joints with no swelling. Muscle tone is normal. LABS: CT of the chest showed no acute findings. The patient has bronchitis with severe chronic lung disease with severe emphysema. PLAN: 1. The patient is on antibiotics, steroids, NEBS treatment 2. Solu-Cortef will be started 125mg Q 6 hours CONDITION: Stable. TIME SPENT: More than 30 minutes. Plan and coordination of the patient's care discussed in the presence of nurse. NITIN
[2016-12-27] MEDS: ASPIRIN EC PO SCH (20:18)
[2016-12-28] MEDS: DUONEB NEB SCH ×4 (05:14→21:06)
[2016-12-28] MEDS: MUCOMYST 20% NEB NEB SCH ×2 (05:14→21:06)
[2016-12-28] MEDS: PROTONIX PO SCH (05:30)
[2016-12-28] MEDS: LASIX TAB PO SCH (05:30)
[2016-12-28] MEDS: SOLU-CORTEF 250 MG IVP SCH ×3 (05:30→20:28)
[2016-12-28 05:49] LABS: BASOPHILS % (AUTO) 0.1 % (0.0-3.0); HEMOGLOBIN 12.9 g/dl (14.0-18.0); IMMATURE GRANULOCYTE % (AUTO) 0.6 % (0.0-5.0); LYMPHOCYTES # (AUTO) 0.8 K/uL (0.60-3.4); LYMPHOCYTES % (AUTO) 8.5 (10.0-50.0); MEAN CORPUSCULAR HGB CONC 33.9 (31.8-35.4); MEAN CORPUSCULAR VOLUME 85.4 fl (80.0-94.0); MONOCYTES # (AUTO) 0.2 K/uL (0.4-2.0); MONOCYTES % (AUTO) 2.7 (0-10); NEUTROPHILS # (AUTO) 7.9 K/ul (2.0-6.9); NEUTROPHILS % (AUTO) 88.1; PLATELET COUNT 184 10^3/uL (140-440); RED BLOOD COUNT 4.45 10^6/ul (4.70-6.10); WHITE BLOOD COUNT 8.97 K/ul (4.2-10.2)
[2016-12-28 06:09] LABS: ALBUMIN 2.9 g/dL (3.4-5.0); ALBUMIN/GLOBULIN RATIO 1.21; BILIRUBIN,TOTAL 0.33 mg/dL (0.00-1.20); BUN/CREATININE RATIO 20.93; CALCIUM 8.6 mg/dL (8.2-10.2); CREATININE 0.86 mg/dL (0.60-1.10); TOTAL PROTEIN 5.3 g/dL (5.8-8.1)
[2016-12-28] MEDS: ROCEPHIN 1 GM in SODIUM CHLORIDE 50 ML IV SCH (08:07)
[2016-12-28] MEDS: TUSSIONEX PO SCH ×2 (08:07→20:26)
[2016-12-28] MEDS: BENICAR PO SCH (08:08)
[2016-12-28] MEDS: ALLEGRA PO SCH (08:08)
[2016-12-28] MEDS: FLOMAX PO SCH (08:09)
[2016-12-28] MEDS: NORVASC PO SCH ×2 (08:09→20:26)
[2016-12-28] MEDS: XANAX PO SCH ×3 (08:09→20:27)
[2016-12-28] MEDS: LEXAPRO PO SCH (08:09)
[2016-12-28] MEDS: MIRALAX PO SCH (08:09)
[2016-12-28] MEDS: CATAPRES PO SCH ×2 (08:09→20:27)
[2016-12-28] MEDS: MUCINEX PO SCH ×4 (08:09→20:27)
--- NOTE | 2016-12-28 08:51 | PCM.PROG ---
Attending Provider: ATTENDING PROVIDER: Dr. HAILEY GONZALEZ This patient is seen with Debbie Garcia, Nurse Practitioner. DATE OF SERVICE: 12/28/16 SUBJECTIVE: This 76 year old WHITE/ M was hospitalized 12/25/16. The patient has been up walking, appetite is good. Breathing better. The patient slept well. The patient still has shortness of breath and wheezing, although improved somewhat. REVIEW OF SYSTEMS: CONSTITUTIONAL: No night sweats. No fatigue, malaise, lethargy. No fever or chills. HEENT: Eyes: No visual changes. No eye pain. No eye discharge. ENT: No runny nose. No epistaxis. No sinus pain. No odynophagia. No congestion. RESPIRATORY: Cough and wheeze. No hemoptysis. Shortness of breath, better. CARDIOVASCULAR: No angina symptoms. No CHF symptoms. No atypical chest pain for CAD. No palpitations. No orthopnea.. GASTROINTESTINAL: No abdominal pain. No nausea or vomiting. No diarrhea or constipation. No hematemesis. No hematochezia. GENITOURINARY: No urgency. No frequency. No dysuria. No hematuria. No obstructive symptoms. No discharge. No pain. No significant abnormal bleeding. MUSCULOSKELETAL: No musculoskeletal pain; no joint swelling. NEUROLOGICAL: Awake, alert, oriented to time, place and person. No headache. No neck pain. No syncope. No seizures. No dizziness. PSYCHIATRIC: Not anxious. No depression. No suicidal thoughts. No homicidal thoughts. SKIN: No rash. No lesions. No wounds. ENDOCRINE: No unexplained weight loss. No weight gain. HEMATOLOGIC/LYMPHATIC: No anemia. No purpura. No petechiae. No prolonged or excessive bleeding. No palpable lymph nodes. PHYSICAL EXAMINATION: GENERAL: The patient is awake, alert and oriented, sitting in bed in no distress. VITAL SIGNS: Temperature 94.6 F, Pulse 76, Respiratory Rate 16, BP 128/75, Pulse Ox 98% HEENT: Head normocephalic, atraumatic. Eyes: Extraocular muscles are intact. Pupils are equal, round and reactive to light and accommodation. Ears: No lesions. Nose appeared normal. Throat: No exudate or erythema. NECK: Supple. No JVD, no carotid bruit. No lymphadenopathy or thyromegaly. LUNGS: Diminished breath sounds with bilateral expiratory wheeze on left. Clear to auscultation. Percussion note normal. Chest symmetrical. HEART: S1, S2, no S3. No murmurs. No cyanosis or clubbing. No ascites. Pulses: Dorsalis pedis and posterior tibial pulses +1 to +2 both sides. ABDOMEN: Soft. Non-tender. Bowel sounds active. No CVA tenderness. No mass felt. EXTREMITIES: No edema. Full range of motion of all extremities, equal. NEUROLOGIC: No focal deficit. Cranial nerves II through XII are grossly intact. No headache, no double vision or headache. SKIN: Not dry. Intact. Turgor-normal. LYMPHATIC: No palpable lymph nodes/no lymphedema. MUSCULOSKELETAL: Normal joints with no swelling. Muscle tone is normal. LAB REVIEW: 12/28/16 04:20 12/28/16 04:20 12/28/16 04:20: Sodium 135 L, Potassium 4.0, Chloride 102, Carbon Dioxide 24, Anion Gap 13.0, BUN 18, Creatinine 0.86, Estimated GFR (MDRD) 86.00, BUN/ Creatinine Ratio 20.93, Glucose 121 H, Calcium 8.6, Total Bilirubin 0.33, AST 12 L, ALT 11 L, Alkaline Phosphatase 47 L, Total Protein 5.3 L, Albumin 2.9 L, Globulin 2.4, Albumin/Globulin Ratio 1.21 12/28/16 04:20: WBC 8.97, RBC 4.45 L, Hgb 12.9 L, Hct 38.0 L, MCV 85.4, MCH 29.0 , MCHC 33.9, RDW Coeff of Bhaskar 16.3 H, Plt Count 184, Immature Gran % (Auto) 0.6 , Neut % (Auto) 88.1, Lymph % (Auto) 8.5 L, [place] % (Auto) 2.7, Eos % (Auto) 0.0 , Baso % (Auto) 0.1, Immature Gran # (Auto) 0.1, Neut # 7.9 H, Lymph # 0.8, [place] # 0.2 L, Eos # 0.0, Baso # 0.0 ASSESSMENT: 1. Acute bronchitis/pneumonitis resolving clinically. 2. Lung mass, follows with Dr. Morales. 3. CAD stable. 4. Mild wheeze on left. PLAN: 1. Continue nebs and chest percussion vest 2. Decreased Solu-Cortef to q.8hr 3. Up and about as tolerated Plan and coordination of the patient's care discussed in the presence of [employer] Technical Lead Senior Developer and nurse. CONDITION: Stable SCRIBED BY: BEAR HOLLEY Ramp Service Employee scribed while in presence of service performed by Dr. Gonzalez/Debbie Garcia APRN on 12/28/16 ([id number])
--- NOTE | 2016-12-28 14:03 | PN ---
DATE OF SERVICE: 12/27/16 SUBJECTIVE: 76-year-old white male hospitalized with acute bronchitis, COPD. The patient's condition this afternoon is a lot better. This morning he was wheezing. The patient is put on Tussionex twice a day p.r.n. for cough. The patient still has yellowish sputum. PHYSICAL EXAMINATION: HEENT: Head normocephalic, atraumatic. Eyes: Extraocular muscles are intact. Pupils are equal, round and reactive to light and accommodation. Ears: No lesions. Nose appeared normal. Throat: No exudate or erythema. NECK: Supple. No JVD, no carotid bruit. No lymphadenopathy or thyromegaly. LUNGS: Decreased breath sounds but good air entry. Clear to auscultation. Percussion note normal. Chest symmetrical. HEART: S1, S2, no S3. No murmurs. No cyanosis or clubbing. No ascites. Pulses: Dorsalis pedis and posterior tibial pulses +1 to +2 both sides. ABDOMEN: Soft. Nontender. Bowel sounds active. No CVA tenderness. No mass felt. EXTREMITIES: No edema. Full range of motion of all extremities, equal. NEUROLOGIC: No focal deficit. Cranial nerves II through XII are grossly intact. No headache, no double vision or headache. SKIN: Not dry. Intact. Turgor - normal. LYMPHATIC: No palpable lymph nodes/no lymphedema. MUSCULOSKELETAL: Normal joints with no swelling. Muscle tone is normal. Pulmonary rehab discussed, strongly advised to attend on a regular basis. The patient was seen and examined with the nurse practitioner and rn case manager . CONDITION: Stable. TIME SPENT: More than 30 minutes. Plan and coordination of the patient's care discussed in the presence of nurse and Pediatric Np. NITIN
--- NOTE | 2016-12-28 14:58 | PN ---
DATE OF SERVICE: 12/28/16 SUBJECTIVE: The patient was hospitalized with acute respiratory failure, severe chronic lung disease with bronchitis. The patient also has speculative mass followed Pulmonary MD. The patient's condition this morning is a lot better. He has been coughing up clear sputum, also his appetite has improved. He's strength seems to be better. He has been walking in the hallways. PHYSICAL EXAMINATION: HEENT: Head normocephalic, atraumatic. Eyes: Extraocular muscles are intact. Pupils are equal, round and reactive to light and accommodation. Ears: No lesions. Nose appeared normal. Throat: No exudate or erythema. NECK: Supple. No JVD, no carotid bruit. No lymphadenopathy or thyromegaly. LUNGS: Decreased breath sounds but more air entry. Percussion note normal. Chest symmetrical. HEART: S1, S2, no S3. No murmurs. No cyanosis or clubbing. No ascites. Pulses: Dorsalis pedis and posterior tibial pulses +1 to +2 both sides. ABDOMEN: Soft. Nontender. Bowel sounds active. No CVA tenderness. No mass felt. EXTREMITIES: No edema. Full range of motion of all extremities, equal. NEUROLOGIC: No focal deficit. Cranial nerves II through XII are grossly intact. No headache, no double vision or headache. SKIN: Not dry. Intact. Turgor - normal. LYMPHATIC: No palpable lymph nodes/no lymphedema. MUSCULOSKELETAL: Normal joints with no swelling. Muscle tone is normal. ASSESSMENT: 1. Bronchitis, seems to be resolving 2. Severe chronic lung disease PLAN: 1. Encourage the patient to walk 2. Steroid side effects with avascular necrosis of femoral heads, diabetes, osteoporosis etc. Discussed 3. Will get a BMD if it not done in past couple of years. 4. Potassium supplements discussed with treatment of osteoporosis. The patient was seen and examined with Nurse Practitioner. TIME SPENT: More than 30 minutes. Plan and coordination of the patient's care discussed in the presence of nurse. NITIN
[2016-12-28] MEDS: ASPIRIN EC PO SCH (20:26)
[2016-12-29] MEDS: DUONEB NEB SCH ×4 (05:14→20:42)
[2016-12-29] MEDS: MUCOMYST 20% NEB NEB SCH ×2 (05:14→20:42)
[2016-12-29] MEDS: PROTONIX PO SCH (05:32)
[2016-12-29] MEDS: SOLU-CORTEF 250 MG IVP SCH ×3 (05:33→20:32)
[2016-12-29 05:42] LABS: BASOPHILS % (AUTO) 0.1 % (0.0-3.0); HEMATOCRIT 39.6 % (42.0-52.0); HEMOGLOBIN 13.5 g/dl (14.0-18.0); IMMATURE GRANULOCYTE % (AUTO) 1.1 % (0.0-5.0); LYMPHOCYTES # (AUTO) 0.9 K/uL (0.60-3.4); LYMPHOCYTES % (AUTO) 12.7 (10.0-50.0); MEAN CORPUSCULAR HEMOGLOBIN 29.3 pg (27.0-31.0); MEAN CORPUSCULAR HGB CONC 34.1 (31.8-35.4); MEAN CORPUSCULAR VOLUME 85.9 fl (80.0-94.0); MONOCYTES # (AUTO) 0.5 K/uL (0.4-2.0); MONOCYTES % (AUTO) 6.1 (0-10); NEUTROPHILS # (AUTO) 5.9 K/ul (2.0-6.9); PLATELET COUNT 164 10^3/uL (140-440); RED BLOOD COUNT 4.61 10^6/ul (4.70-6.10); WHITE BLOOD COUNT 7.34 K/ul (4.2-10.2)
[2016-12-29 06:21] LABS: ALBUMIN 2.9 g/dL (3.4-5.0); ALBUMIN/GLOBULIN RATIO 1.26; ANION GAP 12.9; BILIRUBIN,TOTAL 0.35 mg/dL (0.00-1.20); CALCIUM 8.6 mg/dL (8.2-10.2); CREATININE 0.9 mg/dL (0.60-1.10); POTASSIUM 3.9 mmol/L (3.5-5.1); TOTAL PROTEIN 5.2 g/dL (5.8-8.1)
[2016-12-29] MEDS: ROCEPHIN 1 GM in SODIUM CHLORIDE 50 ML IV SCH (08:33)
[2016-12-29] MEDS: MIRALAX PO SCH (08:33)
[2016-12-29] MEDS: NORVASC PO SCH ×2 (08:34→20:32)
[2016-12-29] MEDS: ALLEGRA PO SCH (08:34)
[2016-12-29] MEDS: CATAPRES PO SCH ×2 (08:34→20:32)
[2016-12-29] MEDS: XANAX PO SCH ×3 (08:34→20:32)
[2016-12-29] MEDS: LEXAPRO PO SCH (08:34)
[2016-12-29] MEDS: BENICAR PO SCH (08:34)
[2016-12-29] MEDS: MUCINEX PO SCH ×4 (08:34→20:32)
[2016-12-29] MEDS: FLOMAX PO SCH (08:34)
[2016-12-29] MEDS: TUSSIONEX PO SCH ×2 (08:37→20:31)
[2016-12-29] MEDS: ASPIRIN EC PO SCH (20:32)
[2016-12-30 04:38] LABS: BASOPHILS % (AUTO) 0.1 % (0.0-3.0); HEMATOCRIT 38.5 % (42.0-52.0); IMMATURE GRANULOCYTE % (AUTO) 1.2 % (0.0-5.0); LYMPHOCYTES # (AUTO) 0.9 K/uL (0.60-3.4); LYMPHOCYTES % (AUTO) 13.1 (10.0-50.0); MEAN CORPUSCULAR HEMOGLOBIN 28.9 pg (27.0-31.0); MEAN CORPUSCULAR HGB CONC 33.8 (31.8-35.4); MEAN CORPUSCULAR VOLUME 85.6 fl (80.0-94.0); MONOCYTES # (AUTO) 0.4 K/uL (0.4-2.0); MONOCYTES % (AUTO) 5.5 (0-10); NEUTROPHILS # (AUTO) 5.4 K/ul (2.0-6.9); NEUTROPHILS % (AUTO) 80.1; PLATELET COUNT 165 10^3/uL (140-440); WHITE BLOOD COUNT 6.72 K/ul (4.2-10.2)
[2016-12-30 05:01] LABS: ALBUMIN 2.7 g/dL (3.4-5.0); ALBUMIN/GLOBULIN RATIO 1.17; ANION GAP 12.7; BILIRUBIN,TOTAL 0.33 mg/dL (0.00-1.20); BUN/CREATININE RATIO 23.25; CALCIUM 8.5 mg/dL (8.2-10.2); CREATININE 0.86 mg/dL (0.60-1.10); POTASSIUM 3.7 mmol/L (3.5-5.1)
[2016-12-30] MEDS: MUCOMYST 20% NEB NEB SCH ×2 (05:20→20:45)
[2016-12-30] MEDS: DUONEB NEB SCH ×4 (05:20→20:45)
[2016-12-30] MEDS: SOLU-CORTEF 250 MG IVP SCH ×3 (05:37→20:04)
[2016-12-30] MEDS: PROTONIX PO SCH (05:37)
[2016-12-30] MEDS: CATAPRES PO SCH ×2 (09:03→20:02)
[2016-12-30] MEDS: FLOMAX PO SCH (09:03)
[2016-12-30] MEDS: ROCEPHIN 1 GM in SODIUM CHLORIDE 50 ML IV SCH (09:03)
[2016-12-30] MEDS: ALLEGRA PO SCH (09:03)
[2016-12-30] MEDS: LEXAPRO PO SCH (09:03)
[2016-12-30] MEDS: BENICAR PO SCH (09:03)
[2016-12-30] MEDS: NORVASC PO SCH ×2 (09:04→20:02)
[2016-12-30] MEDS: MIRALAX PO SCH (09:04)
[2016-12-30] MEDS: TUSSIONEX PO SCH ×2 (09:04→20:00)
[2016-12-30] MEDS: XANAX PO SCH ×3 (09:04→20:01)
[2016-12-30] MEDS: MUCINEX PO SCH ×4 (09:04→20:01)
[2016-12-30] MEDS: ASPIRIN EC PO SCH (20:01)
[2016-12-30] MEDS: TORADOL IVP PRN (20:02)
[2016-12-31 04:21] LABS: BASOPHILS % (AUTO) 0.2 % (0.0-3.0); HEMATOCRIT 39.4 % (42.0-52.0); HEMOGLOBIN 13.4 g/dl (14.0-18.0); IMMATURE GRANULOCYTE % (AUTO) 1.7 % (0.0-5.0); LYMPHOCYTES # (AUTO) 1.1 K/uL (0.60-3.4); LYMPHOCYTES % (AUTO) 16.9 (10.0-50.0); MEAN CORPUSCULAR HEMOGLOBIN 28.9 pg (27.0-31.0); MEAN CORPUSCULAR VOLUME 85.1 fl (80.0-94.0); MONOCYTES # (AUTO) 0.4 K/uL (0.4-2.0); NEUTROPHILS # (AUTO) 4.7 K/ul (2.0-6.9); NEUTROPHILS % (AUTO) 74.2; PLATELET COUNT 161 10^3/uL (140-440); RED BLOOD COUNT 4.63 10^6/ul (4.70-6.10); WHITE BLOOD COUNT 6.32 K/ul (4.2-10.2)
[2016-12-31 04:40] LABS: ALBUMIN 2.8 g/dL (3.4-5.0); ALBUMIN/GLOBULIN RATIO 1.27; ANION GAP 10.7; BILIRUBIN,TOTAL 0.4 mg/dL (0.00-1.20); BUN/CREATININE RATIO 22.47; CALCIUM 8.4 mg/dL (8.2-10.2); CREATININE 0.89 mg/dL (0.60-1.10); POTASSIUM 3.7 mmol/L (3.5-5.1)
[2016-12-31] MEDS: MUCOMYST 20% NEB NEB SCH (05:10)
[2016-12-31] MEDS: DUONEB NEB SCH ×3 (05:10→14:11)
[2016-12-31] MEDS: TORADOL IVP PRN (05:36)
[2016-12-31] MEDS: PROTONIX PO SCH (05:37)
[2016-12-31] MEDS: SOLU-CORTEF 250 MG IVP SCH ×2 (05:37→14:11)
[2016-12-31] MEDS: LASIX TAB PO SCH (05:37)
[2016-12-31] MEDS: BENICAR PO SCH (08:04)
[2016-12-31] MEDS: MUCINEX PO SCH ×2 (08:04→14:11)
[2016-12-31] MEDS: LEXAPRO PO SCH (08:04)
[2016-12-31] MEDS: ROCEPHIN 1 GM in SODIUM CHLORIDE 50 ML IV SCH (08:04)
[2016-12-31] MEDS: MIRALAX PO SCH (08:04)
[2016-12-31] MEDS: FLOMAX PO SCH (08:04)
[2016-12-31] MEDS: CATAPRES PO SCH (08:05)
[2016-12-31] MEDS: NORVASC PO SCH (08:05)
[2016-12-31] MEDS: ALLEGRA PO SCH (08:05)
[2016-12-31] MEDS: TUSSIONEX PO SCH (08:18)
[2016-12-31] MEDS: XANAX PO SCH ×2 (08:18→12:03)
--- NOTE | 2016-12-31 09:41 | PCM.PROG ---
Attending Provider: ATTENDING PROVIDER: Dr. HAILEY GONZALEZ This patient is seen with Debbie Garcia, Nurse Practitioner. DATE OF SERVICE: 12/31/16 SUBJECTIVE: This 76 year old WHITE/ M was hospitalized 12/25/16. The patient is alert, lying in bed. He states he is feeling better, has been up walking. REVIEW OF SYSTEMS: CONSTITUTIONAL: No night sweats. No fatigue, malaise, lethargy. No fever or chills. HEENT: Eyes: No visual changes. No eye pain. No eye discharge. ENT: No runny nose. No epistaxis. No sinus pain. No odynophagia. No congestion. RESPIRATORY: Cough and congestion. No hemoptysis. No shortness of breath. CARDIOVASCULAR: No angina symptoms. No CHF symptoms. No atypical chest pain for CAD. No palpitations. No orthopnea.. GASTROINTESTINAL: No abdominal pain. No nausea or vomiting. No diarrhea or constipation. No hematemesis. No hematochezia. GENITOURINARY: No urgency. No frequency. No dysuria. No hematuria. No obstructive symptoms. No discharge. No pain. No significant abnormal bleeding. MUSCULOSKELETAL: No musculoskeletal pain; no joint swelling. NEUROLOGICAL: Awake, alert, oriented to time, place and person. No headache. No neck pain. No syncope. No seizures. No dizziness. PSYCHIATRIC: Not anxious. No depression. No suicidal thoughts. No homicidal thoughts. SKIN: No rash. No lesions. No wounds. ENDOCRINE: No unexplained weight loss. No weight gain. HEMATOLOGIC/LYMPHATIC: No anemia. No purpura. No petechiae. No prolonged or excessive bleeding. No palpable lymph nodes. PHYSICAL EXAMINATION: GENERAL: The patient is awake, alert and oriented, sitting in bed in no distress. VITAL SIGNS: Temperature 97.4 F, Pulse 72, Respiratory Rate 16, BP 149/84, Pulse Ox 98% HEENT: Head normocephalic, atraumatic. Eyes: Extraocular muscles are intact. Pupils are equal, round and reactive to light and accommodation. Ears: No lesions. Nose appeared normal. Throat: No exudate or erythema. NECK: Supple. No JVD, no carotid bruit. No lymphadenopathy or thyromegaly. LUNGS: Diminished breath sounds equal and clear. No wheeze. Percussion note normal. Chest symmetrical. HEART: S1, S2, no S3. No murmurs. No cyanosis or clubbing. No ascites. Pulses: Dorsalis pedis and posterior tibial pulses +1 to +2 both sides. ABDOMEN: Soft. Non-tender. Bowel sounds active. No CVA tenderness. No mass felt. EXTREMITIES: No edema. Full range of motion of all extremities, equal. NEUROLOGIC: No focal deficit. Cranial nerves II through XII are grossly intact. No headache, no double vision or headache. SKIN: Not dry. Intact. Turgor-normal. LYMPHATIC: No palpable lymph nodes/no lymphedema. MUSCULOSKELETAL: Normal joints with no swelling. Muscle tone is normal. LAB REVIEW: 12/31/16 04:19 12/31/16 04:19 12/31/16 04:19: Sodium 136, Potassium 3.7, Chloride 100, Carbon Dioxide 29, Anion Gap 10.7, BUN 20 H, Creatinine 0.89, Estimated GFR (MDRD) 83.00, BUN/ Creatinine Ratio 22.47, Glucose 117 H, Calcium 8.4, Total Bilirubin 0.40, AST 12 L, ALT 13, Alkaline Phosphatase 42 L, Total Protein 5.0 L, Albumin 2.8 L, Globulin 2.2, Albumin/Globulin Ratio 1.27 12/31/16 04:19: WBC 6.32, RBC 4.63 L, Hgb 13.4 L, Hct 39.4 L, MCV 85.1, MCH 28.9 , MCHC 34.0, RDW Coeff of Bhaskar 15.6 H, Plt Count 161, Immature Gran % (Auto) 1.7 , Neut % (Auto) 74.2, Lymph % (Auto) 16.9, [place] % (Auto) 7.0, Eos % (Auto) 0.0, Baso % (Auto) 0.2, Immature Gran # (Auto) 0.1, Neut # 4.7, Lymph # 1.1, [place] # 0.4, Eos # 0.0, Baso # 0.0 ASSESSMENT: 1. Acute bronchitis/pneumonitis resolving clinically. 2. Lung mass, follows with Dr. Morales. 3. CAD stable. PLAN: 1. Discharge home 2. Continue breathing treatments at home 3. Predisone 20 b.i.d. for 2 days 10 b.i.d. for 5 days 4. Keflex 500 mg t.i.d. for 5 days Plan and coordination of the patient's care discussed in the presence of Stem Mounter and nurse. CONDITION: Stable SCRIBED BY: BEAR HOLLEY Software Publisher scribed while in presence of service performed by Dr. Gonzalez/Debbie Garcia APRN on 12/31/16 ([id number])
[2016-12-31 10:08] VITALS: BP 158/76; TEMP 97.7
--- NOTE | 2016-12-31 12:14 | CM.DICTOOL ---
ADMISSION: 12/25/16 10:45 DISCHARGE: December 31, 2016 DATE OF SERVICE: 12/31/16 FINAL DIAGNOSIS Acute Bronchitis with COPD Severe COPD, oxygen dependent Pulmonary nodules, right and left lung (followed by Dr. Ontiveros) Sleep Apnea, oxygen Hypertension Anxiety Polycythemia BPH Severe Degenerative Disease CAD with stent application History of hyponatremia Cholecystectomy Cataract Extraction LAST VITALS Temp Pulse Resp BP Pulse Ox 97.7 F 82 20 158/76 H 98 12/31/16 10:00 12/31/16 10:00 12/31/16 10:00 12/31/16 10:00 12/31/16 10:00 ACTIVE HOME MEDICATIONS Alprazolam (Xanax) 0.25 mg PO BID BREAKFAST&LUNCH [facility] Last Admin: 12/31/16 08:18 Dose: 0.25 mg Alprazolam (Xanax) 0.5 mg PO BEDTIME [facility] Last Admin: 12/30/16 20:01 Dose: 0.5 mg Amlodipine Besylate (Norvasc) 5 mg PO BID [facility] Last Admin: 12/31/16 08:05 Dose: 5 mg Aspirin (Aspirin Ec) 81 mg PO BEDTIME [facility] Last Admin: 12/30/16 20:01 Dose: 81 mg Clonidine (Catapres) 0.1 mg PO BID [facility] Last Admin: 12/31/16 08:05 Dose: 0.1 mg Escitalopram Oxalate (Lexapro) 10 mg PO DAILY [facility] Last Admin: 12/31/16 08:04 Dose: 10 mg Fexofenadine HCl (Cait) 180 mg PO DAILY [facility] Last Admin: 12/31/16 08:05 Dose: 180 mg Furosemide (Lasix Tab) 20 mg PO [id number] [facility] Last Admin: 12/31/16 05:37 Dose: 20 mg Guaifenesin (Mucinex) 600 mg PO QID [facility] Last Admin: 12/31/16 08:04 Dose: 600 mg Olmesartan (Benicar) 40 mg PO DAILY [facility] Last Admin: 12/31/16 08:04 Dose: 40 mg Esomeprazole Magnesium (nexium) (Protonix) 40 mg PO QDAC [facility] Last Admin: 12/31/16 05:37 Dose: 40 mg Polyethylene Glycol (Miralax) 17 gm PO DAILY [facility] Last Admin: 12/31/16 08:04 Dose: 17 gm Tamsulosin HCl (Flomax) 0.4 mg PO DAILY [facility] Last Admin: 12/31/16 08:04 Dose: 0.4 mg Ketotifen Fumarate (itchy eye) 1 drop each eye PRN Last Admin: Propylene Glycol (Systane Balance) 1-2 drop each eye PRN Last Admin: Tiotropium Br/Olodaterol HCL (Stiolto Respimat Inhal Harrell) 2 puff IH Daily Last Admin: ALLERGIES Iodinated Contrast- Oral and IV Dye Adverse Reaction (Verified 12/25/16 09:18) NEW PRESCRIPTIONS: Keflex 500 mg TID for 5 days Prednisone 20 mg BID for 2 days, then 10 mg BID for 5 days Jaimie has the RX listed below. They were lacking Medicare required information (purchase date of nebulizer, serial number) Albuterol Nebs QID Pulmicort Nebs BID SMOKING: Not Applicable DISEASE SPECIFIC EDUCATION: Nebulizer treatments Rinse mouth after use of Pulmicort Neb treatment Oxygen Prescriptions Appointment Steroids with risk of GI irritation, bone demineralization LAB REVIEW: 12/31/16 04:19 12/31/16 04:19 12/31/16 04:19: Sodium 136, Potassium 3.7, Chloride 100, Carbon Dioxide 29, Anion Gap 10.7, BUN 20 H, Creatinine 0.89, Estimated GFR (MDRD) 83.00, BUN/ Creatinine Ratio 22.47, Glucose 117 H, Calcium 8.4, Total Bilirubin 0.40, AST 12 L, ALT 13, Alkaline Phosphatase 42 L, Total Protein 5.0 L, Albumin 2.8 L, Globulin 2.2, Albumin/Globulin Ratio 1.27 12/31/16 04:19: WBC 6.32, RBC 4.63 L, Hgb 13.4 L, Hct 39.4 L, MCV 85.1, MCH 28.9 , MCHC 34.0, RDW Coeff of Bhaskar 15.6 H, Plt Count 161, Immature Gran % (Auto) 1.7 , Neut % (Auto) 74.2, Lymph % (Auto) 16.9, [place] % (Auto) 7.0, Eos % (Auto) 0.0, Baso % (Auto) 0.2, Immature Gran # (Auto) 0.1, Neut # 4.7, Lymph # 1.1, [place] # 0.4, Eos # 0.0, Baso # 0.0 PLAN: Discharge home Diet: Regular as tolerated Activity: Resume as tolerated, use oxygen at all times Continue medications as listed on nursing discharge information sheet Continue oxygen at 2 liters per cannula continuously Start nebulizer treatments of Albuterol 3-4 times daily and Pulmicort twice daily An appointment is scheduled [facility] Dr. Gonzalez/Debbie Garcia APRN on January 03, 2017 at 2:15 pm Mr. Hernandez is alert and oriented x 3. He is independent with activities of daily living. He requires use of continuous oxygen at 2 liters per cannula. He has oxygen supplies and a nebulizer machine at home; these were provided by [employer] several years ago. He is ambulatory with use of oxygen and without assistance of the nursing staff or assistive device. Meal intakes have been good since his admission at 100% for all meals. Mr. Hernandez is free of decubitus ulcers, rashes or other irritation to the skin. Se Gonzalez MD Debbie Garcia APRN
--- NOTE | 2016-12-31 13:43 | PN ---
DATE OF SERVICE: 12/29/16 SUBJECTIVE: 76 year old white male hospitalized with acute distress with bilaterally wheezing with acute bronchitis with severe chronic lung disease. REVIEW OF SYSTEMS: CONSTITUTIONAL: No night sweats. No fatigue, malaise, lethargy. No fever or chills. HEENT: Eyes: No visual changes. No eye pain. No eye discharge. ENT: No runny nose. No epistaxis. No sinus pain. No sore throat. No odynophagia. No congestion. RESPIRATORY: Cough and congestion. No hemoptysis. No shortness of breath. CARDIOVASCULAR: No angina symptoms. No CHF symptoms. No atypical chest pain for CAD. No palpitations. No orthopnea. GASTROINTESTINAL: No abdominal pain. No nausea or vomiting. No diarrhea or constipation. No hematemesis. No hematochezia. GENITOURINARY: No urgency. No frequency. No dysuria. No hematuria. No obstructive symptoms. No discharge. No pain. No significant abnormal bleeding. MUSCULOSKELETAL: No musculoskeletal pain; no joint swelling. NEUROLOGICAL: No headache. No neck pain. No syncope. No seizures. No dizziness. PSYCHIATRIC: Not anxious. No depression. No suicidal thoughts. No homicidal thoughts. SKIN: No rash. No lesions. No wounds. ENDOCRINE: No unexplained weight loss. No weight gain. HEMATOLOGIC/LYMPHATIC: No anemia. No purpura. No petechiae. No prolonged or excessive bleeding. No palpable lymph nodes. PHYSICAL EXAMINATION: GENERAL: The patient is oriented to time, place and person. VITAL SIGNS: Temperature 97.9, pulse 70, respiratory rate 20, blood pressure 150/80 and pulse ox 94% HEENT: Head normocephalic, atraumatic. Eyes: Extraocular muscles are intact. Pupils are equal, round and reactive to light and accommodation. Ears: No lesions. Nose appeared normal. Throat: No exudate or erythema. NECK: Supple. No JVD, no carotid bruit. No lymphadenopathy or thyromegaly. LUNGS: Decreased breath sounds but clear to auscultation. Percussion note normal. Chest symmetrical. HEART: S1, S2, no S3. No murmurs. No cyanosis or clubbing. No ascites. Pulses: Dorsalis pedis and posterior tibial pulses +1 to +2 both sides. ABDOMEN: Soft. Nontender. Bowel sounds active. No CVA tenderness. No mass felt. EXTREMITIES: No edema. Full range of motion of all extremities, equal. NEUROLOGIC: No focal deficit. Cranial nerves II through XII are grossly intact. No headache, no double vision or headache. SKIN: Not dry. Intact. Turgor - normal. LYMPHATIC: No palpable lymph nodes/no lymphedema. MUSCULOSKELETAL: Normal joints with no swelling. Muscle tone is normal. LABS: hgb 13.5, hct 39, WBC 7,300 normal differential, creatinine 0.9 and BUN 18. ASSESSMENT: 1. Acute bronchitis 2. Severe chronic lung disease 3. Speculated mass 4. Hypertension 5. Coronary artery disease PLAN: 1. Continue NEBS treatment 2. Steroids 3. Antibiotics 4. Encouraged the patient to be up and about 5. Diet: Regular 6. Appetite is improving 7. Advised pulmonary rehab TIME SPENT: More than 30 minutes. Plan and coordination of the patient's care discussed in the presence of nurse. NITIN
--- NOTE | 2016-12-31 14:03 | PN ---
DATE OF SERVICE: 12/30/16 SUBJECTIVE: 76-year-old white male hospitalized with COPD, acute bronchitis. The patient's condition has steadily improved. He is up and about, getting strength. REVIEW OF SYSTEMS: CONSTITUTIONAL: Weakness is improving. No night sweats. No fever or chills. HEENT: Eyes: No visual changes. No eye pain. No eye discharge. ENT: No runny nose. No epistaxis. No sinus pain. No sore throat. No odynophagia. No congestion. RESPIRATORY: Mild cough and congestion. No hemoptysis. No shortness of breath. CARDIOVASCULAR: No angina symptoms. No CHF symptoms. No atypical chest pain for CAD. No palpitations. No orthopnea. GASTROINTESTINAL: Appetite is improved. No abdominal pain. No nausea or vomiting. No diarrhea or constipation. No hematemesis. No hematochezia. GENITOURINARY: No urgency. No frequency. No dysuria. No hematuria. No obstructive symptoms. No discharge. No pain. No significant abnormal bleeding. MUSCULOSKELETAL: No musculoskeletal pain; no joint swelling. NEUROLOGICAL: No headache. No neck pain. No syncope. No seizures. No dizziness. PSYCHIATRIC: Not anxious. No depression. No suicidal thoughts. No homicidal thoughts. SKIN: No rash. No lesions. No wounds. ENDOCRINE: No unexplained weight loss. No weight gain. HEMATOLOGIC/LYMPHATIC: No anemia. No purpura. No petechiae. No prolonged or excessive bleeding. No palpable lymph nodes. PHYSICAL EXAMINATION: VITAL SIGNS: Temperature 97.8, pulse 72, respiratory rate 18, BP 155/83, pulse ox 98%. HEENT: Head normocephalic, atraumatic. Eyes: Extraocular muscles are intact. Pupils are equal, round and reactive to light and accommodation. Ears: No lesions. Nose appeared normal. Throat: No exudate or erythema. NECK: Supple. No JVD, no carotid bruit. No lymphadenopathy or thyromegaly. LUNGS: Decreased breath sounds. Clear to auscultation. Percussion note normal. Chest symmetrical. HEART: S1, S2, no S3. No murmurs. No cyanosis or clubbing. No ascites. Pulses: Dorsalis pedis and posterior tibial pulses +1 to +2 both sides. ABDOMEN: Soft. Nontender. Bowel sounds active. No CVA tenderness. No mass felt. EXTREMITIES: No edema. Full range of motion of all extremities, equal. NEUROLOGIC: No focal deficit. Cranial nerves II through XII are grossly intact. No headache, no double vision or headache. SKIN: Not dry. Intact. Turgor - normal. LYMPHATIC: No palpable lymph nodes/no lymphedema. MUSCULOSKELETAL: Normal joints with no swelling. Muscle tone is normal. LABS: Hemoglobin 13, hematocrit 38, WBC 6,700, normal differential. Creatinine 0.8, BUN 20, potassium 3.7. ASSESSMENT: 1. ACUTE BRONCHITIS/PNEUMONITIS 2. SEVERE CHRONIC LUNG DISEASE 3. SPICULATED MASS OF THE LUNG 4. CORONARY ARTERY DISEASE 5. HYPERTENSION 6. DYSLIPIDEMIA PLAN: 1. Continue steroids, antibiotics, nebs treatment 2. The patient advised pulmonary rehab 3. Will check to see when the patient had last echocardiogram done CONDITION: Stable improving. TIME SPENT: More than 30 minutes. Plan and coordination of the patient's care discussed in the presence of nurse. NITIN
--- NOTE | 2017-01-02 10:48 | DS ---
DATE OF SERVICE: 12/31/16 FINAL DIAGNOSIS: 1. ACUTE BRONCHITIS WITH COPD 2. SEVERE COPD, OXYGEN DEPENDENT 3. PULMONARY NODULES, RIGHT AND LEFT LUNG FOLLOWED BY DR. MAR 4. SLEEP APNEA, OXYGEN 5. HYPERTENSION 6. ANXIETY 7. POLYCYTHEMIA 8. BPH 9. SEVERE DEGENERATIVE DISEASE 10. CAD WITH STENT APPLICATION 11. HISTORY OF HYPONATREMIA 12. CHOLECYSTECTOMY 13. CATARACT EXTRACTION DISCHARGE INSTRUCTIONS: 1. Followup appointment: An appointment is scheduled with Dr. Gonzalez/Debbie Garcia APRN on 01/03/17 at 2:15 p.m. 2. Continue oxygen at 2L/can/continuously 3. Start nebulizer treatments of Albuterol 3-4 times daily and Pulmicort twice daily MEDICATIONS AT DISCHARGE: Xanax 0.25 mg p.o. b.i.d. Breakfast and lunch BANDAR Xanax 0.5 mg p.o. bedtime BANDAR Norvasc 5 mg p.o. b.i.d. BANDAR Aspirin 81 mg p.o. bedtime BANDAR Catapres 0.1 mg p.o. b.i.d. BANDAR Lexapro 10 mg p.o. daily BANDAR Cait 180 mg p.o. daily BANDAR Lasix 20 mg p.o. Mo We Fri @ 0630 BANDAR Mucinex 600 mg p.o. q.i.d. BANDAR Benicar 40 mg p.o. daily BANDAR Esomeprazole Magnesium (Nexium) (Protonix) 40 mg p.o. q.d. a.c. BANDAR Polyethylene Glycol (Miralax) 17 gm p.o. daily BANDAR Flomax 0.4 mg p.o. daily BANDAR Ketotifen (itchy eye) one drop each eye p.r.n. Propylene Glycol (Systane Balance) 1-2 drop each eye p.r.n. Tiotropium Br/Olodaterol (Stiolto Respimat inhal spray) two puff IH daily NEW PRESCRIPTIONS: Keflex 500 mg t.i.d. for 5 days Prednisone 20 mg b.i.d. for 2 days then 10 mg b.i.d. for 5 days [facility] has the Rx listed below. They were lacking Medicare required information (purchase date of nebulizer, serial number) Albuterol Nebs q.i.d. Pulmicort Nebs b.i.d. DIET INSTRUCTIONS: Regular as tolerated. ACTIVITY: Resume as tolerated, use oxygen at all times SMOKING: N/A DISEASE SPECIFIC EDUCATION: Nebulizer treatments Rinse mouth after use of Pulmicort Neb treatment Oxygen Prescriptions Appointment Steroids with risk of GI irritation, bone demineralization HOSPITAL COURSE: This is a 76-year-old white male who was admitted with acute COPD exacerbation and acute shortness of breath. He has a long-term history of severe COPD and is oxygen dependent. He also has a history of multiple pulmonary nodules for which he sees Dr. Mar on a routine basis which he is following. Upon admission his oxygen saturation was 88 to 89% with his oxygen at 2 to 3L. His chest x-ray revealed just changes associated with acute COPD exacerbation. There was no pneumonia. He was admitted, placed on IV Solu-Cortef 125 mg q.6hr along with Rocephin 1 gm IV daily. All of his home medications were continued. We did start him on Mucomyst nebulizer b.i.d along with continuing his Duonebs q.i.d. which he also does at home. Over the course of the next several days, his breathing slowly improved. Over the weekend, he has been able to be up and about and walk in the hallway with minimal exertion with his oxygen on. His cough has significantly improved. He has been sleeping better the past two nights. We have been doing Tussionex b.i.d. On Saturday, the patient did bring in his home percussion vest that he uses at home after his neb treatment to help expectorate secretions and this has made a significant difference over the weekend. His breath sounds upon auscultation have significantly improved. Today is the first day he has not had any wheezing. He states he is feeling better. He has been eating 75 to 100% of his meals for the past two days. His labs are stable. White count 6.3, hemoglobin 13.4, hematocrit 39.4, platelets 161. Sodium 136, potassium 3.7, BUN 20, creatinine 0.89. Vital signs have been stable today. Today his pulse ox is 98% on 2L. Temperature 97.4, heart rate 72, respirations 16, BP 149/84. We will discharge him home today in stable condition along with Keflex 500 mg t.i.d. for the next five days, Prednisone 20 mg b.i.d. for the next two days and then 10 mg b.i.d. for the next five days. He is to continue doing his Albuterol neb treatments q.4hr as well as his Pulmicort neb treatment b.i.d. He has a nebulizer machine at home. He will see us later on this week and then he will keep his routine followup appointment with Dr. Mar as scheduled. He is instructed to continue using his percussion vest daily to help with his secretions. TIME SPENT: More than 60 minutes. NITIN
--- NOTE | 2017-01-02 14:33 | PN ---
DATE OF SERVICE: 12/31/16 SUBJECTIVE: The patient was hospitalized with acute bronchitis and COPD. The patient's condition has steadily improved. PHYSICAL EXAMINATION: HEENT: Head normocephalic, atraumatic. Eyes: Extraocular muscles are intact. Pupils are equal, round and reactive to light and accommodation. Ears: No lesions. Nose appeared normal. Throat: No exudate or erythema. NECK: Supple. No JVD, no carotid bruit. No lymphadenopathy or thyromegaly. LUNGS: Clear to auscultation. Percussion note normal. Chest symmetrical. HEART: S1, S2, no S3. No murmurs. No cyanosis or clubbing. No ascites. Pulses: Dorsalis pedis and posterior tibial pulses +1 to +2 both sides. ABDOMEN: Soft. Nontender. Bowel sounds active. No CVA tenderness. No mass felt. EXTREMITIES: No edema. Full range of motion of all extremities, equal. NEUROLOGIC: No focal deficit. Cranial nerves II through XII are grossly intact. No headache, no double vision or headache. SKIN: Not dry. Intact. Turgor - normal. LYMPHATIC: No palpable lymph nodes/no lymphedema. MUSCULOSKELETAL: Normal joints with no swelling. Muscle tone is normal. LABS: Labs and oxygen saturation is stable. Oxygen saturation is more than 90% room air. PLAN: 1. The patient is going to be discharged home on steroids and antibiotics. 2. Advised to joint pulmonary rehab The patient was seen and examined with Nurse Practitioner. CONDITION: Stable TIME SPENT: More than 30 minutes. Plan and coordination of the patient's care discussed in the presence of nurse. NITIN
--- NOTE | 2017-01-02 14:35 | PN ---
12/25/16: Level 5 12/26/16: Intermediate 12/27/16: Intermediate 12/28/16: Intermediate 12/29/16: Intermediate 12/30/16: Brief 12/31/16: D as in discharge MTDD
== END 2016-12-31 12:50 | disposition home or self-care (01) | DRG 202 ==
LOC: ED 09:14 → MEDSURG A 10:45
PROVIDERS: ADMIT Internal Medicine; ATTEND Internal Medicine
DX: J20.9 Acute bronchitis, unspecified (principal); J96.00 Acute respiratory failure, unspecified whether with hypoxia or hypercapnia; J44.1 Chronic obstructive pulmonary disease with (acute) exacerbation; J44.0 Chronic obstructive pulmonary disease with (acute) lower respiratory infection; R06.02 Shortness of breath; R53.1 Weakness; R91.8 Other nonspecific abnormal finding of lung field; I10 Essential (primary) hypertension; I25.10 Atherosclerotic heart disease of native coronary artery without angina pectoris; D75.1 Secondary polycythemia; N40.0 Benign prostatic hyperplasia without lower urinary tract symptoms; F41.9 Anxiety disorder, unspecified; G47.30 Sleep apnea, unspecified; Z79.899 Other long term (current) drug therapy; Z99.81 Dependence on supplemental oxygen; Z95.5 Presence of coronary angioplasty implant and graft; Z86.39 Personal history of other endocrine, nutritional and metabolic disease; Z87.891 Personal history of nicotine dependence
CPT/HCPCS: 36415; 80053; 82550; 82553; 82803; 83880; 84484; 85025; 87070; 87651; 87804; 87880; 93005; 93010; 94640; 96374; 99284

== ENCOUNTER 2017-01-09 09:16 | Outpatient (RCR) ==
[2017-02-06 11:04] VITALS: BP 130/58
== END 2017-02-07 ==
LOC: CAR.REHAB 09:16
PROVIDERS: ATTEND Internal Medicine
DX: I25.810 Atherosclerosis of coronary artery bypass graft(s) without angina pectoris (principal); Z95.5 Presence of coronary angioplasty implant and graft
CPT/HCPCS: 93797

== ENCOUNTER 2017-01-18 12:47 | Emergency (ER) ==
[2017-01-18 13:00] VITALS: BP 172/98; TEMP 98.7; BMI 26.0
--- NOTE | 2017-01-18 13:10 | ED.PDOC ---
General ED Provider: Dr. RICARDA GRIDER Chief Complaint: Eye Problem Stated Complaint: red eye no pain Time Seen by Physician: 13:00 (pain free vision spared ) Information Source: Patient Exam Limitations: No limitations (no pain) Primary Care Provider: HAILEY SCHULTE Referred to ED by: Other (seen with bolivar at all times ) Nursing and Triage Documentation Reviewed and Agree: Yes EENT Complaint Exam - Eye Complaint/Exam Onset/Duration: 10 days negative trauma reported Symptoms Are: Still present Timing: Constant Initial Severity: Mild Current Severity: Mild Location: Right Aggravating: Reports: None Alleviating: Reports: None Associated Signs and Symptoms: Denies: Photophobia, Clear drainage, Purulent drainage, Vision impairment, Fever, Swelling Eye Surgical History: Reports: None Penetrating Injury Risk Factors: None Globe Rupture Risk Factors: None Acute Glaucoma Risk Factors: None Optic Artery Occlusion Risk Factors: None Visual Field: Normal Extraocular Movement: Normal Orbit Findings: Normal Globe Findings: Intact Lid Findings: Normal Conjunctival Findings: Red (abrasion noted on cornea) Corneal Findings: Clear Fundi: Normal Differential Diagnoses: Corneal Abrasion Review of Systems - Review Of Systems Constitutional: Reports: No symptoms Eyes: Reports: Other (red eye) Ears, Nose, Mouth, Throat: Reports: No symptoms Respiratory: Reports: No symptoms Cardiac: Reports: No symptoms GI: Reports: No symptoms : Reports: No symptoms Musculoskeletal: Reports: No symptoms Skin: Reports: No symptoms Neurological: Reports: No symptoms Endocrine: Reports: No symptoms Hematologic/Lymphatic: Reports: No symptoms All Other Systems: Reviewed and Negative Past Medical History - Past Medical History Previously Healthy: No Endocrine: Reports: None Cardiovascular: Reports: None Respiratory: Reports: COPD Hematological: Reports: None Gastrointestinal: Reports: None Genitourinary: Reports: CKD Neuro/Psych: Reports: None Musculoskeletal: Reports: None Cancer: Reports: None - Surgical History General Surgical History: Reports: None - Family History Family History: Reports: None - Social History Smoking Status: Former smoker Hx Substance Use: No Alcohol Screening: None Physical Exam - Physical Exam Appearance: Well-appearing, No pain distress, Well-nourished Eyes: ABDIAS ( corneal abrasion noted in center of the right cornea) ENT: Ears normal, Nose normal, Oropharynx normal Respiratory: Airway patent, Breath sounds clear, Breath sounds equal, Respirations nonlabored Cardiovascular: RRR, Pulses normal, No rub, No murmur GI/: Soft, Nontender, No masses, Bowel sounds normal, No Organomegaly Musculoskeletal: Normal strength, ROM intact, No edema, No calf tenderness Skin: Warm, Dry, Normal color Neurological: Sensation intact, Motor intact, Reflexes intact, Cranial nerves intact, Alert, Oriented Psychiatric: Affect appropriate, Mood appropriate Critical Care Note - Critical Care Note Total Time (mins): 0 Course - Course Vital Signs: Temp Pulse Resp BP Pulse Ox 01/18/17 12:48 98.7 F 86 20 172/98 H 93 L Departure - Departure Time of Disposition: 13:11 (doctor brush will see this pt now) Disposition: HOME SELF-CARE Discharge Problem: Corneal abrasion, right Qualifiers: Encounter type: initial encounter Qualified Code(s): S05.01XA - Injury of conjunctiva and corneal abrasion without foreign body, right eye, initial encounter Instructions: Corneal Abrasion (ED) Condition: Good Pt referred to PMD for follow-up: Yes Additional Instructions: Please call your Family Physician as soon as possible to schedule a follow-up appointment. Allergies/Adverse Reactions: Allergies Iodinated Contrast- Oral and IV Dye Adverse Reaction (Verified 12/25/16 09:18) Home Medications: Ambulatory Orders Aspirin [Aspirin EC] 81 mg PO BEDTIME 04/23/14 Esomeprazole Magnesium [Nexium] 40 mg PO DAILY 04/23/14 Olmesartan Medoxomil [Benicar] 40 mg PO DAILY #1 tablet 05/07/14 Clonidine HCl 0.1 mg PO BID 05/30/14 Escitalopram Oxalate [Lexapro] 10 mg PO DAILY 03/09/16 Polyethylene Glycol 3350 [Miralax] 17 gm PO DAILY 03/09/16 Ketotifen Fumarate [Itchy Eye] 1 drop EACHEYE BID PRN 03/12/16 Propylene Glycol [Systane Balance] 1 - 2 drop EACHEYE PRN PRN 03/12/16 Alprazolam 0.25 mg PO BID BREAKFAST&LUNCH 12/25/16 Alprazolam 2 tab PO BEDTIME 12/25/16 Amlodipine Besylate [Norvasc] 5 mg PO BID 12/25/16 Fexofenadine HCl [Cait Allergy] 180 mg PO DAILY 12/25/16 Furosemide [Lasix] 20 mg PO MOWEFR 12/25/16 Guaifenesin [Mucinex] 600 mg PO QID 12/25/16 Tamsulosin HCl [Flomax] 0.4 mg PO DAILY 12/25/16 Tiotropium Br/Olodaterol HCl [Stiolto Respimat Inhal [place]] 2 puff IH DAILY Disposition Discussed With: Patient
== END 2017-01-18 13:17 | disposition home or self-care (01) ==
LOC: ED 12:47
DX: S05.01XA Injury of conjunctiva and corneal abrasion without foreign body, right eye, initial encounter (principal)
CPT/HCPCS: 99282

== ENCOUNTER 2017-01-28 13:10 | Outpatient (CLI) ==
[2017-01-28 13:25] LABS: BASOPHILS % (AUTO) 0.8 % (0.0-3.0); EOSINOPHILS # (AUTO) 0.3 K/ul (0.0-0.7); HEMATOCRIT 44.9 % (42.0-52.0); HEMOGLOBIN 15.4 g/dl (14.0-18.0); IMMATURE GRANULOCYTE % (AUTO) 0.4 % (0.0-5.0); LYMPHOCYTES # (AUTO) 1.5 K/uL (0.60-3.4); LYMPHOCYTES % (AUTO) 30.7 (10.0-50.0); MEAN CORPUSCULAR HEMOGLOBIN 29.5 pg (27.0-31.0); MEAN CORPUSCULAR HGB CONC 34.3 (31.8-35.4); MONOCYTES # (AUTO) 0.7 K/uL (0.4-2.0); MONOCYTES % (AUTO) 13.3 (0-10); NEUTROPHILS # (AUTO) 2.5 K/ul (2.0-6.9); NEUTROPHILS % (AUTO) 48.8; PLATELET COUNT 267 10^3/uL (140-440); RED BLOOD COUNT 5.22 10^6/ul (4.70-6.10); WHITE BLOOD COUNT 5.02 K/ul (4.2-10.2)
== END 2017-01-28 13:11 | disposition home or self-care (01) ==
LOC: LAB 13:10
PROVIDERS: ATTEND Internal Medicine Hematology & Oncology
DX: D75.1 Secondary polycythemia (principal)
CPT/HCPCS: 36415; 85025

== ENCOUNTER 2017-02-08 07:13 | Outpatient (RCR) ==
[2017-03-08 10:50] VITALS: BP 148/58
== END 2017-03-10 ==
LOC: CAR.REHAB 07:13
PROVIDERS: ATTEND Internal Medicine
DX: I25.810 Atherosclerosis of coronary artery bypass graft(s) without angina pectoris (principal); Z95.5 Presence of coronary angioplasty implant and graft
CPT/HCPCS: 93797

== ENCOUNTER 2017-02-22 12:50 | Outpatient (CLI) ==
[2017-02-22 13:07] LABS: BASOPHILS % (AUTO) 0.3 % (0.0-3.0); EOSINOPHILS # (AUTO) 0.5 K/ul (0.0-0.7); EOSINOPHILS % (AUTO) 7.5 % (0.0-7.0); HEMOGLOBIN 15.2 g/dl (14.0-18.0); IMMATURE GRANULOCYTE % (AUTO) 0.3 % (0.0-5.0); LYMPHOCYTES # (AUTO) 1.1 K/uL (0.60-3.4); LYMPHOCYTES % (AUTO) 18.5 (10.0-50.0); MEAN CORPUSCULAR HEMOGLOBIN 29.9 pg (27.0-31.0); MEAN CORPUSCULAR HGB CONC 34.5 (31.8-35.4); MEAN CORPUSCULAR VOLUME 86.6 fl (80.0-94.0); MONOCYTES # (AUTO) 0.6 K/uL (0.4-2.0); MONOCYTES % (AUTO) 9.1 (0-10); NEUTROPHILS % (AUTO) 64.3; PLATELET COUNT 228 10^3/uL (140-440); RED BLOOD COUNT 5.08 10^6/ul (4.70-6.10); WHITE BLOOD COUNT 6.17 K/ul (4.2-10.2)
== END 2017-02-22 12:51 | disposition home or self-care (01) ==
LOC: LAB 12:50
PROVIDERS: ATTEND Internal Medicine Hematology & Oncology
DX: D75.1 Secondary polycythemia (principal)
CPT/HCPCS: 36415; 85025

== ENCOUNTER 2017-03-10 12:20 | Inpatient (IN) ==
[2017-03-10] MEDS ORDERED: SODIUM CHLORIDE 1,000 ML IV STA (12:36)
--- NOTE | 2017-03-10 13:36 | CT ---
EXAM: CT abdomen and pelvis without contrast. HISTORY: Vomiting and diarrhea TECHNIQUE: Multi-slice transaxial helical CT. Coronal and sagittal reformatons were performed. COMPARISON: 04/28/2015. FINDINGS: See same day chest CT report for chest findings. Evaluation of the solid organs is limited without IV contrast. Spleen is normal in size and contains calcified granulomas. Calcified granulomas are also present within the liver. There is no intrahep atic biliary ductal dilation. The gallbladder has been removed. Tiny nonobstructing renal calculus is present within the inferior pole region of the left kidney. No hydronephrosis or renal calculus i s seen. The pancreas and the right adrenal gland appears unremarkable. Tiny calcification in the le ft adrenal gland appears unchanged. The bowel is not dilated. Distal small bowel loops are fluid filled however nondilated. There are a bladder is not well distended. The prostate is enlarged measuring up to 5.3 cm in transverse diamete r. Multiple diverticuli are seen within the sigmoid colon without evidence of diverticulitis. The a ppendix appears normal in size. No evidence of free fluid in the pelvis is seen. Calcified plaques are present within the abdominal aorta and its major branch vessels. Osseous structures are grossly u nremarkable. IMPRESSION: 1. Fluid filled nondilated distal small bowel loops. This raises concern for enteritis or ileus. 2. No evidence of bowel obstruction. 3. Colonic diverticulosis without diverticulitis. 4. Tiny nonobstructing left renal calculus. 5. Prostatic enlargement. 6. Other incidental findings as detailed above.
--- NOTE | 2017-03-10 13:40 | CT ---
EXAM: CT chest without contrast HISTORY: Cough and fever TECHNIQUE: Multi-slice transaxial helical. Coronal and sagital reformations were performed. COMPARISON: CT abdomen from same day. 01/17/2017. FINDINGS: The heart is normal in size. Coronary artery calcifications are present. Multiple calcified granulo mas are present within the mediastinum. Borderline enlarged subcarinal lymph node measures 10 mm in short axis, not significantly changed. Visualized thyroid appears grossly unremarkable. There is no axillary adenopathy. Please see same d ay abdominal CT report for abdominal findings. Osseous structures appear grossly unremarkable. Moderate emphysematous changes of the lungs are present. There is decreased lung interstitial in the left lung apex, not significantly changed. Scarring changes in the right lung apex appears unchange d. Bilateral central airway thickening and/or subsegmental atelectasis is again seen, bibasilar pare nchymal scarring is not significantly changed. No evidence of pleural effusion or focal airspace con solidation is seen. Bilateral scattered calcified granulomas is present. IMPRESSION: 1. Bilateral central airway thickening with probable adjacent atelectasis, not significantly changed. This is compatible with bronchitis. 2. No focal pneumonia or pleural effusion. 3. Pulmonary emphysema and lung scarring. 4. Atherosclerosis including coronary disease. 5. Nonspecific borderline enlarged subcarinal lymph node.
[2017-03-10] MEDS ORDERED: NORCO 7.5-325 PO STA (14:29)
--- NOTE | 2017-03-10 14:33 | ED.PDOC ---
General ED Provider: Dr. DAMON ELIZALDE-ER Chief Complaint: Diarrhea Stated Complaint: im feeling awful--bodyaches, stauffer, diarrhea , nausea ,cant eat Time Seen by Physician: 12:30 Mode of Arrival: Walk-In Information Source: Patient, Family Exam Limitations: No limitations Primary Care Provider: HAILEY DOSHI Nursing and Triage Documentation Reviewed and Agree: Yes Reviewed sepsis parameters & appropriate labs ordered?: Yes System Inflammatory Response Syndrome: Not Applicable Sepsis Protocol: For patient's 13 years and over: Temp is 96.8 and below OR 101 and greater Pulse >90 BPM Resp >20/minute Acutely Altered Mental Status Are patient's symptoms suggestive of a new infection, such as: -Pneumonia -Skin, Soft Tissue -Endocarditis -UTI -Bone, Joint Infection -Implantable Device -Acute Abdominal Infection -Wound Infection -Meningitis -Blood Stream Catheter Infection -Unknown GI Complaint Exam - Vomiting/Diarrhea Complaint/Exam Onset/Duration: 35hrs Symptoms Are: Still present Episodes of Vomiting over last 24 Hours: 2 Episodes of Diarrhea Over Last 24 Hours: 12 Initial Severity: Mild Current Severity: Moderate Character of Vomiting: Reports: Non-bilious Character of Diarrhea: Reports: Watery Aggravating: Reports: Food Alleviating: Reports: None Associated Signs and Symptoms: Reports: Fever, Abdominal pain, Cramping. Denies : Dizziness, Light-headedness, Melena, Hematemesis Non-GI Risk Factors: Reports: None Kussmaul Respirations Present: No Differential Diagnoses: Dehydration, Viral Gastroenteritis Review of Systems - Review Of Systems Constitutional: Reports: Chills, Fever, Weakness, Loss of appetite Eyes: Reports: No symptoms Ears, Nose, Mouth, Throat: Reports: No symptoms Respiratory: Reports: No symptoms Cardiac: Reports: No symptoms GI: Reports: Abdominal pain, Diarrhea, Nausea : Reports: No symptoms Musculoskeletal: Reports: No symptoms Skin: Reports: No symptoms Neurological: Reports: No symptoms Endocrine: Reports: No symptoms Hematologic/Lymphatic: Reports: No symptoms All Other Systems: Reviewed and Negative Past Medical History - Past Medical History Previously Healthy: No Endocrine: Reports: None Cardiovascular: Reports: None Respiratory: Reports: COPD Hematological: Reports: None Gastrointestinal: Reports: None Genitourinary: Reports: CKD Neuro/Psych: Reports: None Musculoskeletal: Reports: None Cancer: Reports: None - Surgical History General Surgical History: Reports: None - Family History Family History: Reports: None - Social History Smoking Status: Former smoker Hx Substance Use: No Alcohol Screening: None Lives: With family Physical Exam - Physical Exam Appearance: Well-appearing, No pain distress, Well-nourished Pain Distress: Mild Eyes: ABDIAS, EOMI, Conjunctiva clear ENT: Ears normal, Nose normal, Oropharynx normal Neck: Supple Respiratory: Airway patent, Breath sounds clear, Breath sounds equal, Respirations nonlabored Cardiovascular: RRR, Pulses normal, No rub, No murmur GI/: Soft, Nontender, No masses Musculoskeletal: Normal strength, ROM intact, No edema, No calf tenderness Skin: Warm, Dry, Normal color Neurological: Sensation intact, Motor intact, Reflexes intact, Cranial nerves intact, Alert, Oriented Psychiatric: Affect appropriate, Mood appropriate Interpretation - Radiology Interpretation Radiology Interpretation By: Radiologist Radiology Results: Negative Exam Interpreted: CT Scan - EKG Interpretation Time of EKG #1: 14:34 Rate: Normal Rhythm: Sinus Ectopy: None [place]: NL ST Segment: Normal Re-Evaluation - Re-Evaluation Time of Re-Evaluation: 14:34 Status: Improved Vital Signs Stable: Yes Pain Level: 1 Appearance: NAD Lungs: Clear Skin: Warm and Dry Neuro: Alert and Oriented X3 CV: RRR Physician Notification - Case Discussed Physician Notified: dr doshi Time of Notification: 14:34 Critical Care Note - Critical Care Note Total Time (mins): 0 Course - Course Hematology/Chemistry: 03/10/17 13:00 03/10/17 13:00 Orders, Labs, Meds: Lab Review 03/10/17 03/10/17 03/10/17 12:35 12:43 13:00 WBC 8.68 RBC 5.11 Hgb 15.2 Hct 44.4 MCV 86.9 MCH 29.7 MCHC 34.2 RDW Coeff of Bhaskar 16.0 H Plt Count 210 Immature Gran % (Auto) 0.5 Neut % (Auto) 84.8 Lymph % (Auto) 6.6 L [place] % (Auto) 7.9 Eos % (Auto) 0.1 Baso % (Auto) 0.1 Immature Gran # (Auto) 0.0 Neut # 7.4 H Lymph # 0.6 [place] # 0.7 Eos # 0.0 Baso # 0.0 Puncture Site Rb O2 Saturation 96.0 ABG pH 7.418 ABG pCO2 29.8 L ABG pO2 76.0 L ABG HCO3 19.2 L ABG Total CO2 20 L ABG Base Excess -5 L O2 Delivery Device Nc Oxygen Liter Flow 2.00 FiO2 % 28.0 Sodium Potassium Chloride Carbon Dioxide Anion Gap BUN Creatinine Estimated GFR (MDRD) BUN/Creatinine Ratio Glucose Calcium Total Bilirubin AST ALT Alkaline Phosphatase Total Protein Albumin Globulin Albumin/Globulin Ratio Urine Color Urine Clarity Urine pH Ur Specific [place] Urine Protein Urine Glucose (UA) Urine Ketones Urine Blood Urine Nitrite Urine Bilirubin Urine Urobilinogen Ur Leukocyte Esterase Urine Microscopic WBC Ur Squamous Epith Cells Amorphous Sediment Urine Bacteria Urine Mucus Influenza A (Rapid) Negative by naat Influenza B (Rapid) Negative by naat 03/10/17 03/10/17 13:00 14:15 WBC RBC Hgb Hct MCV MCH MCHC RDW Coeff of Bhaskar Plt Count Immature Gran % (Auto) Neut % (Auto) Lymph % (Auto) [place] % (Auto) Eos % (Auto) Baso % (Auto) Immature Gran # (Auto) Neut # Lymph # [place] # Eos # Baso # Puncture Site O2 Saturation ABG pH ABG pCO2 ABG pO2 ABG HCO3 ABG Total CO2 ABG Base Excess O2 Delivery Device Oxygen Liter Flow FiO2 % Sodium 132 L Potassium 3.8 Chloride 104 Carbon Dioxide 19 L Anion Gap 12.8 BUN 20 H Creatinine 0.99 Estimated GFR (MDRD) 73.00 BUN/Creatinine Ratio 20.20 Glucose 89 Calcium 9.1 Total Bilirubin 0.4 AST 27 ALT 19 Alkaline Phosphatase 81 Total Protein 6.7 Albumin 3.5 Globulin 3.2 Albumin/Globulin Ratio 1.09 Urine Color Yellow Urine Clarity Clear Urine pH 5.5 Ur Specific [place] 1.025 Urine Protein 2+ Urine Glucose (UA) Negative Urine Ketones 1+ Urine Blood Negative Urine Nitrite Negative Urine Bilirubin Negative Urine Urobilinogen 0.2 Ur Leukocyte Esterase Negative Urine Microscopic WBC 0-2 Ur Squamous Epith Cells Not present Amorphous Sediment Trace Urine Bacteria Trace Urine Mucus Trace Influenza A (Rapid) Influenza B (Rapid) Orders Category Date Time Status ABG DRAW REQUEST Stat CARDIO 03/10/17 12:35 Completed EKG-(ED ONLY) Stat CARDIO 03/10/17 12:35 Completed Director Compliance [ED HAND SPLITTER APPLIED] .ONCE EMERGENCY 03/10/17 12:35 Active ED IV/MEDIPORT/POWERPORT .ONCE EMERGENCY 03/10/17 12:36 Active ABG Stat LAB 03/10/17 12:35 Completed BLOOD CULTURE (ED ONLY) Stat LAB 03/10/17 13:00 Received CBC W/ AUTO DIFF Stat LAB 03/10/17 13:00 Completed COMPREHENSIVE METABOLIC PANEL Stat LAB 03/10/17 13:00 Completed MOLECULAR FLU A/B Stat LAB 03/10/17 12:43 Completed MOLECULAR GROUP A STREP Stat LAB 03/10/17 12:43 Completed URINALYSIS C & S IF INDICATED Stat LAB 03/10/17 14:15 Completed 0.9 % Sodium Chloride [Saline Flush] MEDS 03/10/17 12:36 Active 1 syr IVF PRN PRN Hydrocodone Bit/Acetaminophen [[place] 7.5-325] MEDS 03/10/17 14:29 Discontinued 1 tab PO ONCE STA Sodium Chloride 0.9% [Sodium Chloride] 1,000 ml MEDS 03/10/17 12:36 Active IV 100 mls/hr Sodium Chloride 0.9% [Sodium Chloride] 1,000 ml MEDS 03/10/17 12:[address] ABDOMEN/PELVIS WO CONTRAST Stat RADS 03/10/17 12:[address] CHEST W/O CONTRAST Stat RADS 03/10/17 12:36 Completed Medications Generic Name Dose Route Start Last Admin Trade Name Freq PRN Reason Stop Dose Admin Sodium Chloride 1,000 mls @ 100 mls/hr 03/10/17 12:36 Sodium Chloride IV 03/10/17 22:35 .Q10H STA Sodium Chloride 1 syr 03/10/17 12:36 03/10/17 13:34 Saline Flush IVF 1 syr PRN PRN Administration To flush IV Discontinued Medications Generic Name Dose Route Start Last Admin Trade Name Freq PRN Reason Stop Dose Admin Acetaminophen/Hydrocodone Bitart 1 tab 03/10/17 14:29 [place] 7.5-325 PO 03/10/17 14:30 ONCE STA Sodium Chloride 1,000 mls @ 1,000 mls/hr 03/10/17 12:36 03/10/17 13:34 Sodium Chloride IV 03/10/17 13:35 1,000 mls/hr BOLUS STA Administration Vital Signs: Temp Pulse Resp BP Pulse Ox 03/10/17 12:21 100.2 F H 103 H 20 159/89 H 93 L Departure - Departure Time of Disposition: 14:34 Disposition: ADMITTED INPATIENT Discharge Problem: Dehydration, Enteritis Instructions: Dehydration (ED) Condition: Good Pt referred to PMD for follow-up: Yes Allergies/Adverse Reactions: Allergies Iodinated Contrast- Oral and IV Dye Adverse Reaction (Verified 03/10/17 12:30) Home Medications: Ambulatory Orders Aspirin [Aspirin EC] 81 mg PO BEDTIME 04/23/14 Esomeprazole Magnesium [Nexium] 40 mg PO DAILY 04/23/14 Olmesartan Medoxomil [Benicar] 40 mg PO DAILY #1 tablet 05/07/14 Clonidine HCl 0.1 mg PO BID 05/30/14 Escitalopram Oxalate [Lexapro] 10 mg PO DAILY 03/09/16 Polyethylene Glycol 3350 [Miralax] 17 gm PO DAILY 03/09/16 Ketotifen Fumarate [Itchy Eye] 1 drop EACHEYE BID PRN 03/12/16 Propylene Glycol [Systane Balance] 1 - 2 drop EACHEYE PRN PRN 03/12/16 Alprazolam 0.25 mg PO BID BREAKFAST&LUNCH 12/25/16 Alprazolam 2 tab PO BEDTIME 12/25/16 Amlodipine Besylate [Norvasc] 5 mg PO BID 12/25/16 Fexofenadine HCl [Cait Allergy] 180 mg PO DAILY 12/25/16 Furosemide [Lasix] 20 mg PO MOWEFR 12/25/16 Guaifenesin [Mucinex] 600 mg PO QID 12/25/16 Tamsulosin HCl [Flomax] 0.4 mg PO DAILY 12/25/16 Tiotropium Br/Olodaterol HCl [Stiolto Respimat Inhal [place]] 2 puff IH DAILY Disposition Discussed With: Patient, Family
[2017-03-10] MEDS: SODIUM CHLORIDE 1,000 ML IV STA ×2 (14:35→18:07)
[2017-03-10] MEDS ORDERED: MUCINEX PO SCH (17:00)
[2017-03-10 18:18] VITALS: BMI 24.8
[2017-03-10] MEDS: NORCO 5-325 PO PRN (19:40)
[2017-03-10] MEDS: CATAPRES PO SCH (22:23)
[2017-03-10] MEDS: ASPIRIN EC PO SCH (22:23)
[2017-03-10] MEDS: NORVASC PO SCH (22:23)
[2017-03-10] MEDS: XANAX PO SCH (22:23)
[2017-03-10] MEDS: MUCINEX PO SCH (22:23)
[2017-03-10] MEDS: XOPENEX 1.25 MG NEB SCH (22:58)
[2017-03-10] MEDS ORDERED: XOPENEX 1.25 MG NEB ONE (22:58)
[2017-03-10] MEDS: TORADOL IVP PRN (23:06)
[2017-03-11] MEDS: SODIUM CHLORIDE 0.9%-KCL 20 MEQ 1,000 ML IV SCH (03:18)
[2017-03-11] MEDS: NORCO 5-325 PO PRN (03:23)
[2017-03-11] MEDS: XOPENEX 1.25 MG NEB SCH ×4 (04:55→22:33)
[2017-03-11] MEDS: LASIX TAB PO SCH (05:37)
[2017-03-11] MEDS: PROTONIX PO SCH (05:37)
[2017-03-11] MEDS: TORADOL IVP PRN ×2 (05:37→22:26)
[2017-03-11] MEDS: MIRALAX PO SCH (08:28)
[2017-03-11] MEDS: COZAAR PO SCH (08:28)
[2017-03-11] MEDS: MUCINEX PO SCH ×2 (08:28→21:26)
[2017-03-11] MEDS: XANAX PO SCH ×3 (08:28→21:26)
[2017-03-11] MEDS: LOVENOX SUBCUT SCH (08:30)
[2017-03-11] MEDS: NON-FORMULARY MEDICATION (Tiotropium Br/Olodaterol Hcl [Stiolto Respimat Inhal Spray] 2 PU IH SCH (08:35)
[2017-03-11] MEDS ORDERED: NON-FORMULARY MEDICATION (Esomeprazole Magnesium [Nexium] 40 MG) PO SCH (09:00)
[2017-03-11] MEDS ORDERED: [UNRECOGNIZED DRUG - REMARK] PO SCH (09:00)
[2017-03-11] MEDS ORDERED: NON-FORMULARY MEDICATION (Olmesartan Medoxomil [Benicar] 40 MG) PO SCH (09:00)
[2017-03-11] MEDS ORDERED: BENICAR PO SCH (09:00)
[2017-03-11] MEDS ORDERED: CLARITIN PO SCH (09:00)
[2017-03-11] MEDS: NORVASC PO SCH ×2 (14:38→21:27)
[2017-03-11] MEDS: LEXAPRO PO SCH (14:38)
[2017-03-11] MEDS: FLOMAX PO SCH (14:38)
[2017-03-11] MEDS: CATAPRES PO SCH ×2 (14:38→21:27)
[2017-03-11] MEDS: ASPIRIN EC PO SCH (21:26)
[2017-03-12] MEDS: SODIUM CHLORIDE 0.9%-KCL 20 MEQ 1,000 ML IV SCH ×2 (03:52→08:27)
[2017-03-12] MEDS: XOPENEX 1.25 MG NEB SCH ×4 (04:27→23:51)
[2017-03-12] MEDS: PROTONIX PO SCH (05:45)
[2017-03-12] MEDS: MUCINEX PO SCH ×2 (08:24→21:05)
[2017-03-12] MEDS: COZAAR PO SCH (08:24)
[2017-03-12] MEDS: XANAX PO SCH ×3 (08:24→21:05)
[2017-03-12] MEDS: LOVENOX SUBCUT SCH (08:24)
[2017-03-12] MEDS: MIRALAX PO SCH (08:25)
[2017-03-12] MEDS: NON-FORMULARY MEDICATION (Tiotropium Br/Olodaterol Hcl [Stiolto Respimat Inhal Spray] 2 PU IH SCH (08:25)
[2017-03-12] MEDS ORDERED: ZOFRAN 4 MG/2 ML IVP STA (08:35)
[2017-03-12] MEDS ORDERED: CHLORASEPTIC SPRAY MM PRN (09:01)
[2017-03-12] MEDS ORDERED: DECADRON 4 MG/ML SDV IM STA (09:01)
[2017-03-12] MEDS: TORADOL IVP PRN ×2 (09:43→19:42)
--- NOTE | 2017-03-12 09:43 | PCM.PROG ---
Attending Provider: ATTENDING PROVIDER: Dr. HAILEY SCHULTE DATE OF SERVICE: 03/12/17 SUBJECTIVE: This 76 year old WHITE/ M was hospitalized 03/10/17. The patient is hospitalized with acute gastroenteritis. The patient felt a lot better yesterday but today had cramping in stomach. He didn't have a BM yesterday but this morning had watery stool one time. Cardiovascular status respiratory status stable. REVIEW OF SYSTEMS: CONSTITUTIONAL: No night sweats. No fatigue, malaise, lethargy. No fever or chills. HEENT: Eyes: No visual changes. No eye pain. No eye discharge. ENT: No runny nose. No epistaxis. No sinus pain. No odynophagia. No congestion. RESPIRATORY: No cough, no congestion. No hemoptysis. No shortness of breath. CARDIOVASCULAR: No angina symptoms. No CHF symptoms. No atypical chest pain for CAD. No palpitations. No orthopnea.. GASTROINTESTINAL: No abdominal pain. No nausea or vomiting. No diarrhea or constipation. No hematemesis. No hematochezia. GENITOURINARY: No urgency. No frequency. No dysuria. No hematuria. No obstructive symptoms. No discharge. No pain. No significant abnormal bleeding. MUSCULOSKELETAL: No musculoskeletal pain; no joint swelling. NEUROLOGICAL: Awake, alert, oriented to time, place and person. No headache. No neck pain. No syncope. No seizures. No dizziness. PSYCHIATRIC: Not anxious. No depression. No suicidal thoughts. No homicidal thoughts. SKIN: No rash. No lesions. No wounds. ENDOCRINE: No unexplained weight loss. No weight gain. HEMATOLOGIC/LYMPHATIC: No anemia. No purpura. No petechiae. No prolonged or excessive bleeding. No palpable lymph nodes. PHYSICAL EXAMINATION: GENERAL: The patient is awake, alert and oriented, sitting in bed in no distress. VITAL SIGNS: Temperature 97 F, Pulse 73, Respiratory Rate 16, BP 103/60, Pulse Ox 93% HEENT: Head normocephalic, atraumatic. Eyes: Extraocular muscles are intact. Pupils are equal, round and reactive to light and accommodation. Ears: No lesions. Nose appeared normal. Throat: No exudate or erythema. NECK: Supple. No JVD, no carotid bruit. No lymphadenopathy or thyromegaly. LUNGS: Clear to auscultation. Percussion note normal. Chest symmetrical. HEART: S1, S2, no S3. No murmurs. No cyanosis or clubbing. No ascites. Pulses: Dorsalis pedis and posterior tibial pulses +1 to +2 both sides. ABDOMEN: Soft. Non-tender. Bowel sounds active. No CVA tenderness. No mass felt. EXTREMITIES: No edema. Full range of motion of all extremities, equal. NEUROLOGIC: No focal deficit. Cranial nerves II through XII are grossly intact. No headache, no double vision or headache. SKIN: Not dry. Intact. Turgor-normal. LYMPHATIC: No palpable lymph nodes/no lymphedema. MUSCULOSKELETAL: Normal joints with no swelling. Muscle tone is normal. LAB REVIEW: 03/12/17 04:30 03/12/17 04:30 03/12/17 04:30: Sodium 136, Potassium 3.4 L, Chloride 106, Carbon Dioxide 24, Anion Gap 9.4, BUN 15, Creatinine 0.86, Estimated GFR (MDRD) 86.00, BUN/ Creatinine Ratio 17.44, Glucose 93, Calcium 8.5, Total Bilirubin 0.3, AST 24, ALT 13, Alkaline Phosphatase 58, Total Protein 5.5 L, Albumin 2.7 L, Globulin 2.8, Albumin/Globulin Ratio 0.96 03/12/17 04:30: WBC 5.71, RBC 4.45 L, Hgb 13.1 L, Hct 39.3 L, MCV 88.3, MCH 29.4 , MCHC 33.3, RDW Coeff of Bhaskar 16.2 H, Plt Count 188, Immature Gran % (Auto) 0.4 , Neut % (Auto) 51.7, Lymph % (Auto) 28.2, [place] % (Auto) 14.2 H, Eos % (Auto) 5.3, Baso % (Auto) 0.2, Immature Gran # (Auto) 0.0, Neut # 3.0, Lymph # 1.6, [place] # 0.8, Eos # 0.3, Baso # 0.0 ASSESSMENT: 1. Acute gastroenteritis resolving 2. CAD stable 3. COPD stable PLAN: 1. Zofran 2. The patient is not taking Miralax 3. Discontinue IV fluids 4. Up and about 5. ABG on room air 6. K-Tab 20 mEq twice a day 7. 1/2 cc Decadron Plan and coordination of the patient's care discussed in the presence of Front Counter Clerk and nurse. CONDITION: Stable SCRIBED BY: BEAR HOLLEY Cherry Sorter scribed while in presence of service performed by Dr. HAILEY SCHULTE on 03/12/17 ([id number])
--- NOTE | 2017-03-12 10:46 | PN ---
DATE OF SERVICE: 03/11/17 SUBJECTIVE: The patient was hospitalized with acute gastroenteritis. The patient's gastroenteritis seems to have been resolving and he is feeling a lot better. His appetite has improved and his hydration status has improved. REVIEW OF SYSTEMS: CONSTITUTIONAL: No night sweats. No fatigue, malaise, lethargy. No fever or chills. HEENT: Eyes: No visual changes. No eye pain. No eye discharge. ENT: No runny nose. No epistaxis. No sinus pain. No sore throat. No odynophagia. No congestion. RESPIRATORY: No cough, no congestion. No hemoptysis. No shortness of breath. CARDIOVASCULAR: No angina symptoms. No CHF symptoms. No atypical chest pain for CAD. No palpitations. No orthopnea. GASTROINTESTINAL: No abdominal pain. No nausea or vomiting. No diarrhea or constipation. No hematemesis. No hematochezia. GENITOURINARY: No urgency. No frequency. No dysuria. No hematuria. No obstructive symptoms. No discharge. No pain. No significant abnormal bleeding. MUSCULOSKELETAL: No musculoskeletal pain; no joint swelling. NEUROLOGICAL: No headache. No neck pain. No syncope. No seizures. No dizziness. PSYCHIATRIC: Not anxious. No depression. No suicidal thoughts. No homicidal thoughts. SKIN: No rash. No lesions. No wounds. ENDOCRINE: No unexplained weight loss. No weight gain. HEMATOLOGIC/LYMPHATIC: No anemia. No purpura. No petechiae. No prolonged or excessive bleeding. No palpable lymph nodes. PHYSICAL EXAMINATION: HEENT: Head normocephalic, atraumatic. Eyes: Extraocular muscles are intact. Pupils are equal, round and reactive to light and accommodation. Ears: No lesions. Nose appeared normal. Throat: No exudate or erythema. NECK: Supple. No JVD, no carotid bruit. No lymphadenopathy or thyromegaly. LUNGS: Clear to auscultation. Percussion note normal. Chest symmetrical. HEART: S1, S2, no S3. No murmurs. No cyanosis or clubbing. No ascites. Pulses: Dorsalis pedis and posterior tibial pulses +1 to +2 both sides. Explained about his heart problems which he had forgotten that he had a stent put in. ABDOMEN: Soft. Nontender. Bowel sounds active. No CVA tenderness. No mass felt. EXTREMITIES: No edema. Full range of motion of all extremities, equal. NEUROLOGIC: No focal deficit. Cranial nerves II through XII are grossly intact. No headache, no double vision or headache. SKIN: Not dry. Intact. Turgor - normal. LYMPHATIC: No palpable lymph nodes/no lymphedema. MUSCULOSKELETAL: Normal joints with no swelling. Muscle tone is normal. CONDITION: Stable PLAN: 1. Continue IV fluids and supportive measures. TIME SPENT: More than 30 minutes. Plan and coordination of the patient's care discussed in the presence of nurse. NITIN
[2017-03-12] MEDS: K-DUR PO SCH ×2 (10:59→17:16)
--- NOTE | 2017-03-12 13:26 | HP ---
DATE OF SERVICE: 03/10/17 REASON FOR HOSPITALIZATION: Acute gastroenteritis HISTORY OF PRESENT ILLNESS: 76 year old white male came to the emergency room with nausea and vomiting of 36 hours duration. The patient had vomited several times and had non-bloody diarrhea, watery. The patient was feeing extremely weak and tired and was unable to walk. 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 The patient was evaluated in the emergency room by ER attending and was noted to have hyponatremia, evidence of dehydration with poor skin turgor. PAST MEDICAL HISTORY/PAST SURGICAL HISTORY: The patient has history of severe chronic lung disease on home oxygen Coronary artery disease Hypertension Dyslipidemia Gastroesophageal reflux disease Depression Benign prostatic hypertrophy REVIEW OF SYSTEMS: CONSTITUTIONAL: No night sweats. The patient doesn't know whether he had chills or not maybe he says and fever. Weakness and fatigue. HEENT: Eyes: No visual changes. No eye pain. No eye discharge. ENT: No runny nose. No epistaxis. No sinus pain. No sore throat. No odynophagia. No ear pain. No congestion. RESPIRATORY: Usual cough and congestion nothing unusual. No hemoptysis. Shortness of breath. CARDIOVASCULAR: No angina symptoms. No CHF symptoms. No atypical chest pain for CAD. No palpitations. No orthopnea. No PND. No symptoms of coronary insufficiency. GASTROINTESTINAL: No abdominal pain. Vomiting at least 10-15 times with diarrhea and watery stool doesn't know how many. No hematemesis. No hematochezia. Poor appetite and some abdominal cramping. GENITOURINARY: No urgency. No frequency. No dysuria. No hematuria. No obstructive symptoms. No discharge. No pain. No significant abnormal bleeding. MUSCULOSKELETAL: No musculoskeletal pain. No joint swelling. No arthritis. NEUROLOGICAL: No headache. No neck pain. No syncope. No seizures. No dizziness. PSYCHIATRIC: Not anxious. No depression. No suicidal thoughts. No homicidal thoughts. SKIN: No rash. No lesions. No wounds. ENDOCRINE: No unexplained weight loss. No weight gain. HEMATOLOGIC/LYMPHATIC: No anemia. No purpura. No petechiae. No prolonged or excessive bleeding. No palpable lymph nodes. PERSONAL/FAMILY/SOCIAL HISTORY: The patient is single and lives by himself. Nonsmoker and no alcohol abuse. Does all activity of daily living. MEDICATIONS: Aspirin 81mg PO daily Nexium 40mg PO daily Benicar 40mg PO daily Clonidine 0.1mg twice a day Lexapro 10mg PO daily Xanax 0.25mg twice a day and two tablets at night Amlodipine 5mg PO twice a day Cait PRN Lasix 20mg Po daily Flomax 0.4mg Po daily Stiolto two inhalations daily ALLERGIES: Iodinated contrast PHYSICAL EXAMINATION: GENERAL: The patient is oriented to time, place and person. VITAL SIGNS: Temperature 100.1, pulse 103, respiratory rate 20, blood pressure 160/90 and pulse ox 93% with 2 liters. HEENT: Head normocephalic, atraumatic. Eyes: Extraocular muscles are intact. Pupils are equal, round and reactive to light and accommodation. Ears: No lesions. Nose appeared normal. Throat: No exudate or erythema. NECK: Supple. No JVP, no carotid bruit. No lymphadenopathy or thyromegaly. LUNGS: Decreased breath sounds with mild wheeze as usual but good air entry. Clear to auscultation. Percussion note normal. Chest symmetrical. HEART: S1, S2, no S3. No murmurs. No cyanosis or clubbing. No ascites. Pulses: Dorsalis pedis and posterior tibial pulses +1. ABDOMEN: Soft. Mild tenderness over all which is 1 to 2 out of 1-10. Bowel sounds hyperactive. No CVA tenderness. No mass felt. No localized tenderness. EXTREMITIES: No edema. Full range of motion of all extremities, equal. NEUROLOGIC: No focal deficit. Cranial nerves II through XII are grossly intact. No headache, no double vision or headache. Mental status normal. SKIN: Dry. Intact. Turgor - normal. LYMPHATIC: No palpable lymph nodes/no lymphedema. MUSCULOSKELETAL: Normal joints with no swelling. Muscle tone is normal. LABS; ABG pH 7.41, pO2 76, pCO2 29, oxygen saturation 96% on 2 liters. hgb 15, hct 44 , WBC 8,600 normal differential, creatinine 0.9, BUN 20, potassium 3.8, sodium 132, U/A 2+ protein and 1+ ketone indicating dehydration. CT chest bilateral atelectasis not significantly changed and pulmonary emphysema noted. CT scan of the abdomen fluid filled nondilated distal small bowel raising the possibility of enteritis. No diverticulitis. Prostate enlargement. ASSESSMENT: 1. Acute gastroenteritis 2. Severe hydration 3. Chronic lung disease on oxygen 4. Coronary artery disease 5. Hypertension 6. Dyslipidemia 7. BPH 8. Depression PLAN: 1. IV fluids 2. Watch for fluid overload 3. Telemetry 4. EKG 5. Daily CBC and CMP 6. Symptomatic treatment for nausea and vomiting. CONDITION: Stable. TIME SPENT: More than 70 minutes. MTDD
[2017-03-12] MEDS: NORVASC PO SCH ×3 (15:02→22:13)
[2017-03-12] MEDS: FLOMAX PO SCH (15:02)
[2017-03-12] MEDS: CATAPRES PO SCH ×3 (15:02→22:13)
[2017-03-12] MEDS: LEXAPRO PO SCH (15:02)
[2017-03-12] MEDS: ASPIRIN EC PO SCH (21:05)
[2017-03-13] MEDS: XOPENEX 1.25 MG NEB SCH ×2 (05:26→11:12)
[2017-03-13] MEDS: LASIX TAB PO SCH (05:30)
[2017-03-13] MEDS: PROTONIX PO SCH (05:30)
[2017-03-13] MEDS: COZAAR PO SCH (08:20)
[2017-03-13] MEDS: K-DUR PO SCH (08:20)
[2017-03-13] MEDS: MUCINEX PO SCH (08:20)
[2017-03-13] MEDS: XANAX PO SCH (08:20)
[2017-03-13] MEDS: LOVENOX SUBCUT SCH (08:21)
[2017-03-13] MEDS: MIRALAX PO SCH (08:22)
[2017-03-13 10:04] VITALS: BP 124/64; TEMP 98.2
--- NOTE | 2017-03-13 10:23 | PCM.PROG ---
Attending Provider: ATTENDING PROVIDER: Dr. HAILEY SCHULTE This patient is seen with Debbie Garcia, Nurse Practitioner. DATE OF SERVICE: 03/13/17 SUBJECTIVE: This 76 year old WHITE/ M was hospitalized 03/10/17. The patient is sitting in bed, alert. No diarrhea. No nausea or vomiting past 24 hours. Appetite has returned; he ate 100% of his supper and is ready to eat breakfast. REVIEW OF SYSTEMS: CONSTITUTIONAL: No night sweats. No fatigue, malaise, lethargy. No fever or chills. HEENT: Eyes: No visual changes. No eye pain. No eye discharge. ENT: No runny nose. No epistaxis. No sinus pain. No odynophagia. No congestion. RESPIRATORY: No cough, no congestion. No hemoptysis. No shortness of breath. CARDIOVASCULAR: No angina symptoms. No CHF symptoms. No atypical chest pain for CAD. No palpitations. No orthopnea.. GASTROINTESTINAL: Good appetite. Mild abdominal cramping. No nausea or vomiting. No diarrhea or constipation. No hematemesis. No hematochezia. GENITOURINARY: No urgency. No frequency. No dysuria. No hematuria. No obstructive symptoms. No discharge. No pain. No significant abnormal bleeding. MUSCULOSKELETAL: No musculoskeletal pain; no joint swelling. NEUROLOGICAL: Awake, alert, oriented to time, place and person. No headache. No neck pain. No syncope. No seizures. No dizziness. PSYCHIATRIC: Not anxious. No depression. No suicidal thoughts. No homicidal thoughts. SKIN: No rash. No lesions. No wounds. ENDOCRINE: No unexplained weight loss. No weight gain. HEMATOLOGIC/LYMPHATIC: No anemia. No purpura. No petechiae. No prolonged or excessive bleeding. No palpable lymph nodes. PHYSICAL EXAMINATION: GENERAL: The patient is awake, alert and oriented, sitting in bed in no distress. VITAL SIGNS: Temperature 97.2 F, Pulse 67, Respiratory Rate 20, BP 137/77, Pulse Ox 91% HEENT: Head normocephalic, atraumatic. Eyes: Extraocular muscles are intact. Pupils are equal, round and reactive to light and accommodation. Ears: No lesions. Nose appeared normal. Throat: No exudate or erythema. NECK: Supple. No JVD, no carotid bruit. No lymphadenopathy or thyromegaly. LUNGS: Diminished breath sounds bilaterally. Clear to auscultation. Percussion note normal. Chest symmetrical. HEART: S1, S2, no S3. No murmurs. No cyanosis or clubbing. No ascites. Pulses: Dorsalis pedis and posterior tibial pulses +1 to +2 both sides. ABDOMEN: Soft. Non-tender. Bowel sounds active. No CVA tenderness. No mass felt. EXTREMITIES: No edema. Full range of motion of all extremities, equal. NEUROLOGIC: No focal deficit. Cranial nerves II through XII are grossly intact. No headache, no double vision or headache. SKIN: Not dry. Intact. Turgor-normal. LYMPHATIC: No palpable lymph nodes/no lymphedema. MUSCULOSKELETAL: Normal joints with no swelling. Muscle tone is normal. LAB REVIEW: 03/13/17 04:00 03/13/17 04:00 03/13/17 04:00: Sodium 136, Potassium 4.0, Chloride 104, Carbon Dioxide 25, Anion Gap 11.0, BUN 16, Creatinine 1.07, Estimated GFR (MDRD) 67.00, BUN/ Creatinine Ratio 14.95, Glucose 105, Calcium 9.3, Total Bilirubin 0.3, AST 36, ALT 22, Alkaline Phosphatase 58, Total Protein 5.9, Albumin 2.9 L, Globulin 3.0 , Albumin/Globulin Ratio 0.97 03/13/17 04:00: WBC 4.33, RBC 4.47 L, Hgb 13.1 L, Hct 39.1 L, MCV 87.5, MCH 29.3 , MCHC 33.5, RDW Coeff of Bhaskar 16.2 H, Plt Count 181, Immature Gran % (Auto) 0.2 , Neut % (Auto) 66.2, Lymph % (Auto) 22.9, Haakon % (Auto) 10.2 H, Eos % (Auto) 0.5, Baso % (Auto) 0.0, Immature Gran # (Auto) 0.0, Neut # 2.9, Lymph # 1.0, Haakon # 0.4, Eos # 0.0, Baso # 0.0 03/12/17 08:57: Puncture Site R rad, O2 Saturation 87.0 L, ABG pH 7.35, ABG pCO2 38.0, ABG pO2 55.0 L*, ABG HCO3 21 L, ABG Total CO2 22, ABG Base Excess -5 L, Albino Test +, O2 Delivery Device Ra, FiO2 % 21.0 ASSESSMENT: 1. Acute gastroenteritis resolving 2. CAD stable 3. COPD stable PLAN: 1. D/C home 2. Protonix 40 mg twice a day times one month 3. See in office next week 4. Zofran 4 mg q.6 p.r.n. 5. Avoid spicy/greasy foods Plan and coordination of the patient's care discussed in the presence of Jewel Grinder and nurse. CONDITION: Stable SCRIBED BY: BEAR HOLLEY Cook Dessert scribed while in presence of service performed by Dr. Schulte/Debbie Garcia APRN on 03/13/17 ([id number])
--- NOTE | 2017-03-13 10:29 | CM.DICTOOL ---
ADMISSION: 03/10/17 15:33 DISCHARGE: 2017 DATE OF SERVICE: 03/13/17 FINAL DIAGNOSIS ACUTE GASTROENTERITIS DEHYDRATION CLD ON HOME OXYGEN CAD WITH STENT APPLICATION DJD SPINE SLEEP APNEA CKD, STAGE 3 DEPRESSION BPH DIVERTICULOSIS HYPERTENSION CHOLECYSTECTOMY BILATERAL CATARACT EXTRACTION LAST VITALS Temp Pulse Resp BP Pulse Ox 97.2 F L 67 20 137/77 91 L 03/13/17 05:04 03/13/17 05:04 03/13/17 05:04 03/13/17 05:04 03/13/17 05:04 ACTIVE HOME MEDICATIONS Alprazolam (Xanax) 0.5 mg PO BEDTIME [facility] Last Admin: 03/12/17 21:05 Dose: 0.5 mg Alprazolam (Xanax) 0.25 mg PO 0900,1400 [facility] Last Admin: 03/13/17 08:20 Dose: 0.25 mg Amlodipine Besylate (Norvasc) 5 mg PO 1400,2100 [facility] Last Admin: 03/12/17 22:13 Dose: Not Given Aspirin (Aspirin Ec) 81 mg PO BEDTIME [facility] Last Admin: 03/12/17 21:05 Dose: 81 mg Clonidine (Catapres) 0.1 mg PO 1400,2100 [facility] Last Admin: 03/12/17 22:13 Dose: Not Given Escitalopram Oxalate (Lexapro) 10 mg PO 1400 [facility] Last Admin: 03/12/17 15:02 Dose: 10 mg Furosemide (Lasix Tab) 20 mg PO [id number]@0630 [facility] Last Admin: 03/13/17 05:30 Dose: 20 mg Guaifenesin (Mucinex) 1,200 mg PO BID [facility] Last Admin: 03/13/17 08:20 Dose: 1,200 mg Albuterol Neb 0.83% BID Last Admin: Losartan Potassium (Cozaar) 100 mg PO DAILY [facility] Last Admin: 03/13/17 08:20 Dose: 100 mg Non-Formulary Medication (Tiotropium Br/Olodaterol Hcl [Stiolto Respimat Inhal [place]]) 2 puff IH DAILY [facility] Last Admin: 03/12/17 08:25 Dose: Not Given Pantoprazole Sodium (Protonix) 40 mg PO QDAC [facility] Last Admin: 03/13/17 05:30 Dose: 40 mg Polyethylene Glycol (Miralax) 17 gm PO DAILY [facility] Last Admin: 03/13/17 08:22 Dose: Not Given Tamsulosin HCl (Flomax) 0.4 mg PO 1400 [facility] Last Admin: 03/12/17 15:02 Dose: 0.4 mg Propylene Glycol (Systane Balance) 1-2 drops each eye PRN Last Admin: ALLERGIES Iodinated Contrast- Oral and IV Dye Adverse Reaction (Verified 03/10/17 12:30) NEW PRESCRIPTIONS: Zofran 4 mg may take 1 every 6 hours if needed for nausea/vomiting Protonix 40 mg take 1 twice a day for 30 days, then resume daily dosing SMOKING: Not Applicable DISEASE SPECIFIC EDUCATION: Prescriptions Dehydration Gastroenteritis Appointment LAB REVIEW: 03/13/17 04:00 03/13/17 04:00 03/13/17 04:00: Sodium 136, Potassium 4.0, Chloride 104, Carbon Dioxide 25, Anion Gap 11.0, BUN 16, Creatinine 1.07, Estimated GFR (MDRD) 67.00, BUN/ Creatinine Ratio 14.95, Glucose 105, Calcium 9.3, Total Bilirubin 0.3, AST 36, ALT 22, Alkaline Phosphatase 58, Total Protein 5.9, Albumin 2.9 L, Globulin 3.0 , Albumin/Globulin Ratio 0.97 03/13/17 04:00: WBC 4.33, RBC 4.47 L, Hgb 13.1 L, Hct 39.1 L, MCV 87.5, MCH 29.3 , MCHC 33.5, RDW Coeff of Bhaskar 16.2 H, Plt Count 181, Immature Gran % (Auto) 0.2 , Neut % (Auto) 66.2, Lymph % (Auto) 22.9, [place] % (Auto) 10.2 H, Eos % (Auto) 0.5, Baso % (Auto) 0.0, Immature Gran # (Auto) 0.0, Neut # 2.9, Lymph # 1.0, [place] # 0.4, Eos # 0.0, Baso # 0.0 PLAN: Discharge home Diet: Regular as tolerated, avoid spicy/greasy foods for at least 1-2 weeks Activity: Gradually resume as tolerated Continue to use home oxygen at 2 liters per cannula Continue to use home nebulizer treatments as instructed: Albuterol once daily and Albuterol with Pulmicort once daily An appointment is scheduled with Dr. Gonzalez/Debbie Garcia APRN on Mar.18 at 2 :45 pm Mr. Hernandez is alert and oriented x 3. He is oxygen dependent and uses oxygen at 2 liters continuously. He is independent with ADL's and does not require an assistive device with ambulation. He reports a soft stool today and denies nausea. Meal intakes good at 100% last night and today. He reports oxygen and a nebulizer at home for his use. No decubitus ulcers are noted, no rashes or skin irritation noted. Se Gonzalez MD Debbie Garcia APRN
--- NOTE | 2017-03-22 11:53 | DS ---
DATE OF SERVICE: 03/13/17 FINAL DIAGNOSIS: 1. ACUTE GASTROENTERITIS 2. DEHYDRATION 3. HOME OXYGEN 4. CORONARY ARTERY DISEASE WITH STENT APPLICATION 5. DJD OF THE SPINE 6. CHRONIC KIDNEY DISEASE STAGE III 7. DEPRESSION 8. BENIGN PROSTATIC HYPERTROPHY 9. DIVERTICULOSIS 10. HYPERTENSION 11. CHOLECYSTECTOMY 12. BILATERAL CATARACT EXTRACTIONS VITAL SIGNS AT DISCHARGE: Temperature 97.2, pulse 67, respiratory rate 20, blood pressure 137/77, pulse ox 91%. PLAN: 1. Discharge home today. 2. Continue to use home oxygen at 2 liters per nasal cannula. 3. Continue to use home nebulizer treatments as instructed. 4. Albuterol once daily and Albuterol with Pulmicort once daily. 5. An appointment has been scheduled with Dr. Gonzalez/Debbie Garcia on March 18 at 2:45 p.m. MEDICATIONS AT DISCHARGE: Xanax 0.5 mg at HS Xanax 0.25 mg at 900 and 1400 Norvasc 5 mg at 1400 and 2100 Aspirin 81 mg at HS Clonidine 0.1 mg at 1400 and 2100 Lexapro 10 mg at 1400 Lasix 20 mg Saturday, Saturday and Saturday Mucinex 1200 mg twice daily Albuterol nebulizer 0.83% twice daily Cozaar 100 mg daily Tiotropium 2 puffs IH Protonix 40 mg daily MiraLAX 17 grams daily Flomax 0.4 mg daily Propylene Glycol 1-2 drops in each eye prn ALLERGIES: Iodinated contrast NEW PRESCRIPTIONS: Zofran 4 mg one every 6 hours prn for nausea and vomiting Protonix 40 mg twice a day for 30 days and then resume the daily dose DIET INSTRUCTIONS: Regular as tolerated. Avoid spicy and greasy foods for a least 1-2 weeks. ACTIVITY: Gradually resume as tolerated. SMOKING: N/A DISEASE SPECIFIC EDUCATION: Prescriptions, dehydration, gastroenteritis and appointment. HOSPITAL COURSE: TIME SPENT: More than 60 minutes. MTDD
--- NOTE | 2017-03-31 15:15 | PN ---
DATE OF SERVICE: 03/13/17 SUBJECTIVE: The patient still has abdominal cramping, which is mild. He is up and about. Normal bowel movement. No fever, no chills. No cough, no congestion. REVIEW OF SYSTEMS: CONSTITUTIONAL: No night sweats. No fatigue, malaise, lethargy. No fever or chills. HEENT: Eyes: No visual changes. No eye pain. No eye discharge. ENT: No runny nose. No epistaxis. No sinus pain. No sore throat. No odynophagia. No congestion. RESPIRATORY: No cough, no congestion. No hemoptysis. No shortness of breath. CARDIOVASCULAR: No angina symptoms. No CHF symptoms. No atypical chest pain for CAD. No palpitations. No orthopnea. GASTROINTESTINAL: Mild abdominal cramps. No nausea or vomiting. No diarrhea or constipation. No hematemesis. No hematochezia. GENITOURINARY: No urgency. No frequency. No dysuria. No hematuria. No obstructive symptoms. No discharge. No pain. No significant abnormal bleeding. MUSCULOSKELETAL: No musculoskeletal pain; no joint swelling. NEUROLOGICAL: No headache. No neck pain. No syncope. No seizures. No dizziness. PSYCHIATRIC: Not anxious. No depression. No suicidal thoughts. No homicidal thoughts. SKIN: No rash. No lesions. No wounds. ENDOCRINE: No unexplained weight loss. No weight gain. HEMATOLOGIC/LYMPHATIC: No anemia. No purpura. No petechiae. No prolonged or excessive bleeding. No palpable lymph nodes. PHYSICAL EXAMINATION: HEENT: Head normocephalic, atraumatic. Eyes: Extraocular muscles are intact. Pupils are equal, round and reactive to light and accommodation. Ears: No lesions. Nose appeared normal. Throat: No exudate or erythema. NECK: Supple. No JVD, no carotid bruit. No lymphadenopathy or thyromegaly. LUNGS: Clear to auscultation. Percussion note normal. Chest symmetrical. HEART: S1, S2, no S3. No murmurs. No cyanosis or clubbing. No ascites. Pulses: Dorsalis pedis and posterior tibial pulses +1 to +2 both sides. ABDOMEN: Soft. Nontender. Bowel sounds active. No CVA tenderness. No mass felt. EXTREMITIES: No edema. Full range of motion of all extremities, equal. NEUROLOGIC: No focal deficit. Cranial nerves II through XII are grossly intact. No headache, no double vision or headache. SKIN: Not dry. Intact. Turgor - normal. LYMPHATIC: No palpable lymph nodes/no lymphedema. MUSCULOSKELETAL: Normal joints with no swelling. Muscle tone is normal. ASSESSMENT: 1. ACUTE GASTROENTERITIS. THE PATIENT'S HYDRATION STATUS HAS IMPROVED. SKIN TURGOR IS A LOT BETTER. 2. RESPIRATORY STATUS IS STABLE. PLAN: 1. Will discharge the patient home. TIME SPENT: More than 30 minutes. Plan and coordination of the patient's care discussed in the presence of nurse. NITIN
--- NOTE | 2017-03-31 15:16 | PN ---
CODING FOR BILLING 03/10/17 LEVEL 5 03/11/17 INTERMEDIATE 03/12/17 BRIEF 03/13/17 DISCHARGE MTDD
--- NOTE | 2017-03-31 15:20 | DS ---
DATE OF SERVICE: 03/13/17 FINAL DIAGNOSIS: 1. ACUTE GASTROENTERITIS 2. DEHYDRATION 3. HOME OXYGEN 4. CORONARY ARTERY DISEASE WITH STENT APPLICATION 5. DJD OF THE SPINE 6. CHRONIC KIDNEY DISEASE STAGE III 7. DEPRESSION 8. BENIGN PROSTATIC HYPERTROPHY 9. DIVERTICULOSIS 10. HYPERTENSION 11. CHOLECYSTECTOMY 12. BILATERAL CATARACT EXTRACTIONS VITAL SIGNS AT DISCHARGE: Temperature 97.2, pulse 67, respiratory rate 20, blood pressure 137/77, pulse ox 91%. PLAN: 1. Discharge home today. 2. Continue to use home oxygen at 2 liters per nasal cannula. 3. Continue to use home nebulizer treatments as instructed. 4. Albuterol once daily and Albuterol with Pulmicort once daily. 5. An appointment has been scheduled with Dr. Gonzalez/Debbie Garcia on March 18 at 2:45 p.m. MEDICATIONS AT DISCHARGE: Xanax 0.5 mg at HS Xanax 0.25 mg at 900 and 1400 Norvasc 5 mg at 1400 and 2100 Aspirin 81 mg at HS Clonidine 0.1 mg at 1400 and 2100 Lexapro 10 mg at 1400 Lasix 20 mg Saturday, Saturday and Saturday Mucinex 1200 mg twice daily Albuterol nebulizer 0.83% twice daily Cozaar 100 mg daily Tiotropium 2 puffs IH Protonix 40 mg daily MiraLAX 17 grams daily Flomax 0.4 mg daily Propylene Glycol 1-2 drops in each eye prn ALLERGIES: Iodinated contrast NEW PRESCRIPTIONS: Zofran 4 mg one every 6 hours prn for nausea and vomiting Protonix 40 mg twice a day for 30 days and then resume the daily dose DIET INSTRUCTIONS: Regular as tolerated. Avoid spicy and greasy foods for a least 1-2 weeks. ACTIVITY: Gradually resume as tolerated. SMOKING: N/A DISEASE SPECIFIC EDUCATION: Prescriptions Dehydration Gastroenteritis Appointment. HOSPITAL COURSE: The patient was hospitalized with acute gastroenteritis. He was admitted with severe vomiting every 15 minutes for 8 hours. The patient's condition has improved a lot. He had some stomach cramps but they are settled down. He has not had vomiting the past 36 hours. He is up and about eating well. NO fever, no chills. His cardiovascular and pulmonary status is stable. The patient's condition is stable at time of discharge. TIME SPENT: More than 60 minutes. [facility]
== END 2017-03-13 11:35 | disposition home or self-care (01) | DRG 392 ==
LOC: ED 12:20 → MEDSURG A 15:33
PROVIDERS: ADMIT Internal Medicine; ATTEND Internal Medicine
DX: K52.9 Noninfective gastroenteritis and colitis, unspecified (principal); J98.11 Atelectasis; E86.0 Dehydration; R50.9 Fever, unspecified; R06.02 Shortness of breath; N18.3 Chronic kidney disease, stage 3 (moderate); J44.9 Chronic obstructive pulmonary disease, unspecified; I25.10 Atherosclerotic heart disease of native coronary artery without angina pectoris; I10 Essential (primary) hypertension; N40.0 Benign prostatic hyperplasia without lower urinary tract symptoms; M47.9 Spondylosis, unspecified; F32.9 Major depressive disorder, single episode, unspecified; K57.90 Diverticulosis of intestine, part unspecified, without perforation or abscess without bleeding; Z79.899 Other long term (current) drug therapy; Z95.5 Presence of coronary angioplasty implant and graft; Z99.81 Dependence on supplemental oxygen; Z90.49 Acquired absence of other specified parts of digestive tract
CPT/HCPCS: 36415; 80053; 81001; 82803; 85025; 87015; 87040; 87045; 87493; 87502; 87651; 87899; 93005; 93010; 94640; 96360; 96361; 99284

== ENCOUNTER 2017-03-12 07:59 | Outpatient (RCR) ==
[2017-04-10 10:56] VITALS: BP 130/54
== END 2017-04-10 ==
LOC: CAR.REHAB 07:59
PROVIDERS: ATTEND Internal Medicine
DX: I25.810 Atherosclerosis of coronary artery bypass graft(s) without angina pectoris (principal); Z95.5 Presence of coronary angioplasty implant and graft
CPT/HCPCS: 93797

== ENCOUNTER 2017-03-29 12:54 | Outpatient (CLI) | payer OTHER | END 2017-03-29 12:55 | disposition home or self-care (01) | LOC: LAB 12:54 | PROVIDERS: ATTEND Internal Medicine Hematology & Oncology | DX: D75.1 Secondary polycythemia (principal) | CPT/HCPCS: 36415; 85025 ==

== ENCOUNTER 2017-04-11 07:19 | Outpatient (RCR) ==
[2017-05-08 10:49] VITALS: BP 128/58
== END 2017-05-08 ==
LOC: CAR.REHAB 07:19
PROVIDERS: ATTEND Internal Medicine
DX: I25.810 Atherosclerosis of coronary artery bypass graft(s) without angina pectoris (principal); Z95.5 Presence of coronary angioplasty implant and graft
CPT/HCPCS: 93797

== ENCOUNTER 2017-04-23 12:58 | Outpatient (CLI) | END 2017-04-23 12:59 | disposition home or self-care (01) | LOC: LAB 12:58 | PROVIDERS: ATTEND Internal Medicine Hematology & Oncology | DX: D75.1 Secondary polycythemia (principal) | CPT/HCPCS: 36415; 80053; 82728; 83540; 83550; 85025 ==

== ENCOUNTER 2017-05-09 08:19 | Outpatient (RCR) ==
[2017-06-07 10:47] VITALS: BP 130/60
== END 2017-06-08 ==
LOC: CAR.REHAB 08:19
PROVIDERS: ATTEND Internal Medicine
DX: I25.810 Atherosclerosis of coronary artery bypass graft(s) without angina pectoris (principal); Z95.5 Presence of coronary angioplasty implant and graft
CPT/HCPCS: 93797

== ENCOUNTER 2017-05-22 13:04 | Outpatient (CLI) | END 2017-05-22 13:05 | disposition home or self-care (01) | LOC: LAB 13:04 | PROVIDERS: ATTEND Internal Medicine Hematology & Oncology | DX: D75.1 Secondary polycythemia (principal) | CPT/HCPCS: 36415; 85025 ==

== ENCOUNTER 2017-06-10 06:49 | Outpatient (RCR) ==
[2017-07-08 10:48] VITALS: BP 118/56
== END 2017-07-08 23:59 ==
LOC: CAR.REHAB 06:49
PROVIDERS: ATTEND Internal Medicine
DX: I25.810 Atherosclerosis of coronary artery bypass graft(s) without angina pectoris (principal); Z95.5 Presence of coronary angioplasty implant and graft
CPT/HCPCS: 93797

== ENCOUNTER 2017-06-19 13:07 | Outpatient (CLI) | payer OTHER | END 2017-06-19 13:08 | disposition home or self-care (01) | LOC: LAB 13:07 | PROVIDERS: ATTEND Internal Medicine Hematology & Oncology | DX: D75.1 Secondary polycythemia (principal) | CPT/HCPCS: 36415; 85025 ==

== ENCOUNTER 2017-07-09 07:26 | Outpatient (RCR) ==
[2017-08-07 10:58] VITALS: BP 124/54
== END 2017-08-08 23:59 ==
LOC: CAR.REHAB 07:26
PROVIDERS: ATTEND Internal Medicine
DX: I25.810 Atherosclerosis of coronary artery bypass graft(s) without angina pectoris (principal); Z95.5 Presence of coronary angioplasty implant and graft
CPT/HCPCS: 93797

== ENCOUNTER 2017-07-17 12:50 | Outpatient (CLI) | END 2017-07-17 12:51 | disposition home or self-care (01) | LOC: LAB 12:50 | PROVIDERS: ATTEND Internal Medicine Hematology & Oncology | DX: D75.1 Secondary polycythemia (principal) | CPT/HCPCS: 36415; 85025 ==

== ENCOUNTER 2017-08-09 07:22 | Outpatient (RCR) ==
[2017-09-06 10:49] VITALS: BP 138/56
== END 2017-09-07 23:59 ==
LOC: CAR.REHAB 07:22
PROVIDERS: ATTEND Internal Medicine
DX: I25.810 Atherosclerosis of coronary artery bypass graft(s) without angina pectoris (principal); Z95.5 Presence of coronary angioplasty implant and graft
CPT/HCPCS: 93797

== ENCOUNTER 2017-08-14 12:55 | Outpatient (CLI) | payer OTHER | END 2017-08-14 12:56 | disposition home or self-care (01) | LOC: LAB 12:55 | PROVIDERS: ATTEND Internal Medicine Hematology & Oncology | DX: D75.1 Secondary polycythemia (principal); N18.9 Chronic kidney disease, unspecified; R53.82 Chronic fatigue, unspecified; Z79.899 Other long term (current) drug therapy | CPT/HCPCS: 36415; 80053; 82728; 83540; 83550; 85025 ==

== ENCOUNTER 2017-09-09 06:49 | Outpatient (RCR) ==
[2017-10-04 10:47] VITALS: BP 128/60
== END 2017-10-08 23:59 ==
LOC: CAR.REHAB 06:49
PROVIDERS: ATTEND Internal Medicine
DX: I25.810 Atherosclerosis of coronary artery bypass graft(s) without angina pectoris (principal); Z95.5 Presence of coronary angioplasty implant and graft
CPT/HCPCS: 93797

== ENCOUNTER 2017-09-12 12:58 | Outpatient (CLI) | payer OTHER | END 2017-09-12 12:59 | disposition home or self-care (01) | LOC: LAB 12:58 | PROVIDERS: ATTEND Internal Medicine Hematology & Oncology | DX: D75.1 Secondary polycythemia (principal) | CPT/HCPCS: 36415; 85025 ==

== ENCOUNTER 2017-10-09 06:54 | Outpatient (RCR) ==
[2017-11-08 10:45] VITALS: BP 140/58
== END 2017-11-08 23:59 ==
LOC: CAR.REHAB 06:54
PROVIDERS: ATTEND Internal Medicine
DX: I25.810 Atherosclerosis of coronary artery bypass graft(s) without angina pectoris (principal); Z95.5 Presence of coronary angioplasty implant and graft
CPT/HCPCS: 93797

== ENCOUNTER 2017-10-10 12:52 | Outpatient (CLI) | END 2017-10-10 12:53 | disposition home or self-care (01) | LOC: LAB 12:52 | PROVIDERS: ATTEND Internal Medicine Hematology & Oncology | DX: D75.1 Secondary polycythemia (principal) | CPT/HCPCS: 36415; 85025 ==

== ENCOUNTER 2017-10-23 13:44 | Outpatient (POV) | payer OTHER | END 2017-10-23 17:00 | LOC: OUTPT 13:44 | PROVIDERS: ATTEND Otolaryngology | DX: H91.90 Unspecified hearing loss, unspecified ear (principal) ==

== ENCOUNTER 2017-11-12 08:39 | Outpatient (RCR) ==
[2017-11-13 10:52] VITALS: BP 138/58
== END 2017-12-08 23:59 ==
LOC: CAR.REHAB 08:39
PROVIDERS: ATTEND Internal Medicine
DX: I25.10 Atherosclerotic heart disease of native coronary artery without angina pectoris (principal); Z95.5 Presence of coronary angioplasty implant and graft
CPT/HCPCS: 93797

== ENCOUNTER 2017-12-09 07:25 | Outpatient (RCR) ==
[2018-01-08 10:56] VITALS: BP 140/56
== END 2018-01-08 23:59 ==
LOC: CAR.REHAB 07:25
PROVIDERS: ATTEND Internal Medicine
DX: I25.10 Atherosclerotic heart disease of native coronary artery without angina pectoris (principal); Z95.5 Presence of coronary angioplasty implant and graft
CPT/HCPCS: 93797

== ENCOUNTER 2017-12-10 13:01 | Outpatient (CLI) | payer OTHER | END 2017-12-10 13:02 | disposition home or self-care (01) | LOC: LAB 13:01 | PROVIDERS: ATTEND Internal Medicine Hematology & Oncology | DX: D75.1 Secondary polycythemia (principal); N18.9 Chronic kidney disease, unspecified; R53.82 Chronic fatigue, unspecified; Z79.899 Other long term (current) drug therapy | CPT/HCPCS: 36415; 80053; 82728; 83540; 83550; 85025 ==

== ENCOUNTER 2018-01-17 12:52 | Outpatient (CLI) | payer OTHER | END 2018-01-17 12:53 | disposition home or self-care (01) | LOC: LAB 12:52 | PROVIDERS: ATTEND Internal Medicine Hematology & Oncology | DX: D75.1 Secondary polycythemia (principal) | CPT/HCPCS: 36415; 85027 ==

== ENCOUNTER 2018-02-10 07:05 | Outpatient (RCR) ==
[2018-02-07 17:00] VITALS: BMI 25.6
== END 2018-03-10 23:59 ==
LOC: CAR.REHAB 07:05
PROVIDERS: ATTEND Internal Medicine
DX: I25.10 Atherosclerotic heart disease of native coronary artery without angina pectoris (principal); Z95.5 Presence of coronary angioplasty implant and graft

== ENCOUNTER 2018-03-12 07:07 | Outpatient (RCR) ==
[2018-02-07 17:00] VITALS: BMI 25.6
[2018-04-10 07:49] VITALS: BP 122/54
== END 2018-04-10 23:59 ==
LOC: CAR.REHAB 07:07
PROVIDERS: ATTEND Internal Medicine
DX: I25.10 Atherosclerotic heart disease of native coronary artery without angina pectoris (principal); Z95.5 Presence of coronary angioplasty implant and graft
CPT/HCPCS: 93797

== ENCOUNTER 2018-03-25 13:12 | Outpatient (CLI) ==
[2018-02-07 17:00] VITALS: BMI 25.6
== END 2018-03-25 13:13 | disposition home or self-care (01) ==
LOC: LAB 13:12
PROVIDERS: ATTEND Internal Medicine Hematology & Oncology
DX: D75.1 Secondary polycythemia (principal)
CPT/HCPCS: 36415; 85025

== ENCOUNTER 2018-04-04 13:11 | Outpatient (CLI) | payer OTHER ==
[2018-02-07 17:00] VITALS: BMI 25.6
--- NOTE | 2018-04-04 13:41 | DI ---
EXAM: Two-view chest HISTORY: Chronic respiratory failure. TECHNIQUE: Frontal and lateral views of the chest were obtained. Comparison 02/08/2018. FINDINGS: The heart is stable size. Emphysematous changes are seen. There is mild hyperinflation o f the lungs. The pulmonary vasculature appears normal. Linear opacities are seen within the lung ba ses bilaterally. The lungs are otherwise clear. IMPRESSION: Mild probable atelectasis seen within the lung bases. Pulmonary emphysema.
== END 2018-04-04 13:12 | disposition home or self-care (01) ==
LOC: RAD 13:11
PROVIDERS: ATTEND Internal Medicine Pulmonary Disease
DX: J96.11 Chronic respiratory failure with hypoxia (principal); J43.9 Emphysema, unspecified; J44.9 Chronic obstructive pulmonary disease, unspecified

== ENCOUNTER 2018-04-11 06:52 | Outpatient (RCR) ==
[2018-02-07 17:00] VITALS: BMI 25.6
[2018-04-21 11:04] VITALS: BP 118/56
== END 2018-05-08 23:59 ==
LOC: CAR.REHAB 06:52
PROVIDERS: ATTEND Internal Medicine
DX: I25.10 Atherosclerotic heart disease of native coronary artery without angina pectoris (principal); Z95.5 Presence of coronary angioplasty implant and graft
CPT/HCPCS: 93797

== ENCOUNTER 2018-04-14 09:15 | Outpatient (CLI) | payer OTHER ==
[2018-02-07 17:00] VITALS: BMI 25.6
--- NOTE | 2018-04-18 08:54 | HOLTER ---
PATIENT INFORMATION AND COMMENTS Attending Physician: DR. HAILEY SCHULTE Indications: BRADYCARDIA, SHORT OF BREATH __ Patient Medications: ACYCLOVIR, LOSARTAN, PANTOPRAZOLE, XANAX, STIOLTO RESPIMAT , AMLODIPINE, CLONIDINE, TAMSULOSIN, ESCITALOPRAM, ASMANEX HFA, ALBUTERAL, BUDESONIDE __ Pre-procedure Summary: Protocol: Standard Heart Rate Started: 04/14/18 1105 Minimum: 44 BPM Weight: 190 LBS Ended: 04/15/18 1051 Maximum: 122 BPM Height: 72" Duration: 23 HRS 45 MIN Average: 79 BPM _ INTERPRETATIONS/OBSERVATIONS: 1. BASIC RHYTHM: SINUS, RATE 45 BPM TO 120 BPM, AVERAGE 80 BPM 2. INFREQUENT ISOLATED PVC'S, 1% OF BEATS SCANNED, RARE PAC'S 3. NO ST-T WAVE CHANGES FROM BASELINE 4. ACTIVITY LOG NOT MAINTAINED MTDD
== END 2018-04-14 09:16 | disposition home or self-care (01) ==
LOC: CAR 09:15
PROVIDERS: ATTEND Internal Medicine
DX: R06.02 Shortness of breath (principal); R00.1 Bradycardia, unspecified
CPT/HCPCS: 93227

== ENCOUNTER 2018-05-09 06:36 | Outpatient (RCR) ==
[2018-02-07 17:00] VITALS: BMI 25.6
[2018-06-06 11:02] VITALS: BP 124/56
== END 2018-06-08 23:59 ==
LOC: CAR.REHAB 06:36
PROVIDERS: ATTEND Internal Medicine
DX: I25.10 Atherosclerotic heart disease of native coronary artery without angina pectoris (principal); Z95.5 Presence of coronary angioplasty implant and graft
CPT/HCPCS: 93797

== ENCOUNTER 2018-05-20 12:49 | Outpatient (CLI) ==
[2018-02-07 17:00] VITALS: BMI 25.6
== END 2018-05-20 12:50 | disposition home or self-care (01) ==
LOC: LAB 12:49
PROVIDERS: ATTEND Internal Medicine Hematology & Oncology
DX: D75.1 Secondary polycythemia (principal); N18.9 Chronic kidney disease, unspecified; R53.82 Chronic fatigue, unspecified; Z79.899 Other long term (current) drug therapy
CPT/HCPCS: 36415; 80053; 82728; 83540; 83550; 85025

== ENCOUNTER 2018-06-09 07:21 | Outpatient (RCR) ==
[2018-02-07 17:00] VITALS: BMI 25.6
[2018-07-07 10:53] VITALS: BP 138/58
== END 2018-07-08 23:59 ==
LOC: CAR.REHAB 07:21
PROVIDERS: ATTEND Internal Medicine
DX: I25.10 Atherosclerotic heart disease of native coronary artery without angina pectoris (principal); Z95.5 Presence of coronary angioplasty implant and graft
CPT/HCPCS: 93797

== ENCOUNTER 2018-07-09 06:59 | Outpatient (RCR) ==
[2018-02-07 17:00] VITALS: BMI 25.6
[2018-08-08 10:55] VITALS: BP 146/56
== END 2018-08-08 23:59 ==
LOC: CAR.REHAB 06:59
PROVIDERS: ATTEND Internal Medicine
DX: I25.10 Atherosclerotic heart disease of native coronary artery without angina pectoris (principal); Z95.5 Presence of coronary angioplasty implant and graft
CPT/HCPCS: 93797

== ENCOUNTER 2018-07-23 12:59 | Outpatient (CLI) ==
[2018-02-07 17:00] VITALS: BMI 25.6
== END 2018-07-23 13:00 | disposition home or self-care (01) ==
LOC: LAB 12:59
PROVIDERS: ATTEND Internal Medicine Hematology & Oncology
DX: D75.1 Secondary polycythemia (principal)
CPT/HCPCS: 36415; 85025; 99195

== ENCOUNTER 2018-08-07 06:45 | Outpatient (CLI) | payer OTHER ==
[2018-02-07 17:00] VITALS: BMI 25.6
--- NOTE | 2018-08-08 11:18 | HOLTER ---
PATIENT INFORMATION AND COMMENTS Attending Physician: DR. HAILEY SCHULTE Indications: SHORT OF AIR, BRADYCARDIA __ Patient Medications: ACYCLOVIR, LOSARTAN, PANTOPRAZOLE, XANAX, STIOLTO INHALER , AMLODIPINE, TAMSULOSIN, ESCITALOPRAM, B12, ASA, ASMANEX, ALBUTEROL, VENTOLIN __ Pre-procedure Summary: Protocol: Standard Heart Rate Started: 08/07/18817 Minimum: 47 BPM Weight: 190 BPM Ended: 08/08/18817 Maximum: 208 BPM Height: 72" Duration: 24 HOURS Average: 70 BPM _ INTERPRETATIONS/OBSERVATIONS: 1. BASIC RHYTHM: SINUS RATE 47 BPM TO 150 BPM, AVERAGE 70 BPM 2. INFREQUENT PVC'S AND RARE PAC'S 3. NO ST-T WAVE CHANGES FROM BASELINE 4. ACTIVITY LOG --BLANK MTDD
--- NOTE | 2018-08-11 09:47 | ECHO2D ---
Date of Exam: 08/07/18 Ordering Physician: DR. HAILEY SCHULTE Room #: OP Reason for Echo: FATIGUE, SOB, BRADYCARDIA M-Mode Normal Adult Results LV Dimensions Normal Adult Results AoV Opening excursions >1.6 >1.6 LVEDD-base- 3.5-5.8 4.9 Ao root dimensions 2.0-3.7 3.8 LVESD-base- 3.1-4.6 L. Atrium dimensions 1.9-3.8 4.2 Post. Wall thickness 0.8-1.1 1.3 IV septum (thickness) 0.7-1.2 1.3 Post. Wall excursion 0.72-1.3 NORMAL Septal motion NORMAL Systolic motion R. Ventricular cavity 1.5-2.0 3.2 LVEF 60% 55% Paradoxical septal wall motion NORMAL 2-D : 2-D M Mode Echocardiogram was performed using apical four chamber and left parasternal long and short axis views. Mitral, tricuspid and aortic valves appear to be normal. Contractility of the left ventricle seems to be normal, so is the cavity size. ENLARGED RIGHT VENTRICLE AND LEFT ATRIAL CAVITIES. Aortic root appears to be normal. There is no pericardial effusion. There is no thrombus noted in the left ventricular or left aortic cavity. No mitral valve prolapse noted. M-MODE: MV: NORMAL AV: NORMAL TV: NORMAL PV: CHAMBER SIZE: ENLARGED LEFT ATRIAL AND RIGHT VENTRICLE CAVITIES WALL MOTION: NORMAL PERICARDIUM: NORMAL INTERPRETATION: 1. LEFT VENTRICULAR HYPERTROPHY WITH ENLARGED LEFT ATRIAL CAVITY 2. ENLARGED RIGHT VENTRICLE CAVITY 3. NORMAL VALVES 4. NORMAL LEFT VENTRICULAR CONTRACTILITY MTDD
== END 2018-08-07 06:46 | disposition home or self-care (01) ==
LOC: CAR 06:45
PROVIDERS: ATTEND Internal Medicine
DX: R06.02 Shortness of breath (principal); R53.83 Other fatigue; R00.1 Bradycardia, unspecified
CPT/HCPCS: 93005; 93010; 93227

== ENCOUNTER 2018-08-12 14:09 | Outpatient (CLI) | payer OTHER ==
[2018-02-07 17:00] VITALS: BMI 25.6
--- NOTE | 2018-08-12 15:10 | DI ---
EXAM: Two views of the right hip. History: Right hip pain. Findings: No acute fracture or dislocation. Mild narrowing of the right hip joint with no significa nt osteophyte formation. No radiopaque foreign bodies. Impression: 1. No acute osseous abnormality. 2. Mild arthritis of the right hip joint
--- NOTE | 2018-08-13 08:42 | CT ---
EXAM: CT of the lumbar spine without contrast History: Lower back pain. Right leg pain Technique: Multiplanar CT images through the lumbar spine were obtained without the administration o f IV contrast Findings: Scarring seen at the lung bases. Atherosclerotic vascular calcifications. Osteopenia. No acute fracture or subluxation of the lumbar spine. Moderate degenerative disc disease at L5-S1. Mild to moderate disc space narrowing seen elsewhere. T12-L1: No significant bony central canal stenosis or bony neural foraminal narrowing. L1-L2: No significant bony central canal stenosis or bony neural foraminal narrowing. L2-L3: Small disc bulge effacing anterior thecal sac with no significant bony central canal stenosis . Moderate to severe bilateral bony neural foraminal narrowing secondary to ligamentous and facet hy pertrophy. L3-L4: Modest disc protrusion effacing anterior thecal sac with moderate central canal stenosis. Se janice bilateral bony neural foraminal narrowing secondary to ligamentous and facet hypertrophy. L4-L5: Small to modest paracentral disc protrusion effacing anterior thecal sac with mild central ca nal stenosis. Moderate to severe bilateral bony neural foraminal narrowing secondary to ligamentous and facet hypertrophy. L5-S1: Small disc bulge effacing anterior thecal sac with mild central canal stenosis. Moderate to severe bilateral bony neural foraminal narrowing secondary to ligamentous and facet hypertrophy. Impression: 1. No acute osseous abnormality of the lumbar spine. 2. Degenerative changes level by level analysis as detailed above.
== END 2018-08-12 14:10 | disposition home or self-care (01) ==
LOC: RAD 14:09
PROVIDERS: ATTEND Internal Medicine
DX: M25.551 Pain in right hip (principal); M54.5 Low back pain

== ENCOUNTER 2018-09-06 09:39 | Emergency (ER) ==
[2018-09-06 09:48] VITALS: BP 114/76; TEMP 98; BMI 26.9
--- NOTE | 2018-09-06 10:08 | ED.PDOC ---
General ED Provider: Dr. DAMON SIMENTAL MD Chief Complaint: Hip Pain/Injury Stated Complaint: sciatica Time Seen by Physician: 10:00 Mode of Arrival: Walk-In Information Source: Patient Exam Limitations: No limitations Primary Care Provider: HAILEY SCHULTE Nursing and Triage Documentation Reviewed and Agree: Yes Does patient meet sepsis criteria?: No If yes, has appropriate treatment been initiated?: Yes System Inflammatory Response Syndrome: Not Applicable Sepsis Protocol: For patient's 13 years and over: Temp is 96.8 and below OR 101 and greater Pulse >90 BPM Resp >20/minute Acutely Altered Mental Status Are patient's symptoms suggestive of a new infection, such as: -Pneumonia -Skin, Soft Tissue -Endocarditis -UTI -Bone, Joint Infection -Implantable Device -Acute Abdominal Infection -Wound Infection -Meningitis -Blood Stream Catheter Infection -Unknown Review of Systems - Review Of Systems Constitutional: Reports: No symptoms Eyes: Reports: No symptoms Ears, Nose, Mouth, Throat: Reports: No symptoms Respiratory: Reports: Short of air Cardiac: Reports: No symptoms GI: Reports: No symptoms : Reports: No symptoms Musculoskeletal: Reports: Back pain, Joint pain Skin: Reports: No symptoms Neurological: Reports: No symptoms Endocrine: Reports: No symptoms Hematologic/Lymphatic: Reports: No symptoms All Other Systems: Reviewed and Negative Past Medical History - Past Medical History Previously Healthy: No Endocrine: Reports: None Cardiovascular: Reports: None Respiratory: Reports: COPD Hematological: Reports: None Gastrointestinal: Reports: None Genitourinary: Reports: CKD Neuro/Psych: Reports: None Musculoskeletal: Reports: None Cancer: Reports: None - Surgical History General Surgical History: Reports: None - Family History Family History: Reports: None - Social History Smoking Status: Former smoker Hx Substance Use: No Alcohol Screening: None - Immunizations Tetanus Shot up to Date: (not sure) Physical Exam - Physical Exam Appearance: Obese Ill-appearing: None Pain Distress: Mild Eyes: ABDIAS, EOMI, Conjunctiva clear ENT: Ears normal, Nose normal, Oropharynx normal Respiratory: Airway patent, Breath sounds clear, Breath sounds equal, Respirations nonlabored Cardiovascular: RRR, Pulses normal, No rub, No murmur GI/: Soft, Nontender, No masses, Bowel sounds normal, No Organomegaly Musculoskeletal: Limited ROM (pain in lower buttocks radaiting down right leg) Skin: Warm, Dry, Normal color Neurological: Sensation intact, Motor intact, Reflexes intact, Cranial nerves intact, Alert, Oriented Psychiatric: Affect appropriate, Mood appropriate Critical Care Note - Critical Care Note Total Time (mins): 0 Course - Course Vital Signs: Temp Pulse Resp BP Pulse Ox 09/06/18 09:39 98.0 F 68 18 114/76 89 L Departure - Departure Time of Disposition: 10:40 Disposition: HOME SELF-CARE Discharge Problem: Sciatica neuralgia Qualifiers: Laterality: right Qualified Code(s): M54.31 - Sciatica, right side Instructions: Sciatica (ED) Condition: Stable Pt referred to PMD for follow-up: Yes IPMP verified?: No Allergies/Adverse Reactions: Allergies Iodinated Contrast- Oral and IV Dye Adverse Reaction (Verified 09/06/18 09:55) levofloxacin [From Levaquin] Adverse Reaction (Verified 09/06/18 09:55) Home Medications: Ambulatory Orders Aspirin [Aspirin EC] 81 mg PO BEDTIME 04/23/14 Escitalopram Oxalate [Lexapro] 10 mg PO 1400 03/09/16 Amlodipine Besylate [Norvasc] 5 mg PO 1400,2100 12/25/16 Tamsulosin HCl [Flomax] 0.4 mg PO 1400 12/25/16 Losartan Potassium 100 mg PO DAILY 03/10/17 Acyclovir 400 mg PO DAILY 02/07/18 Albuterol Sulfate [Ventolin Hfa] 2 puff IH Q4-6H PRN 02/07/18 Budesonide [Pulmicort 0.25 mg/2 ml] 1 vial NEB RTBID 02/07/18 Cyanocobalamin (Vitamin B-12) [Vitamin B-12] 1,000 mcg PO DAILY 02/07/18 Pantoprazole Sodium [Protonix] 40 mg PO DAILY 02/07/18 Tiotropium Br/Olodaterol HCl [Stiolto Respimat Inhal [place]] 4 gm IH DAILY Alprazolam [Xanax] 0.5 mg PO TID 02/08/18 Polyethylene Glycol 3350 [Miralax] 17 gm PO DAILY 02/08/18 Clonidine HCl 0.2 mg PO BID 02/13/18 Albuterol Sulfate 0.083% Neb [Albuterol 0.083% Neb] 1 vial NEB RTQ6H #1 vial.neb 02/20/18 Clonidine HCl [Catapres] 0.2 mg PO BID #60 tablet 02/20/18 Guaifenesin [Mucinex] 1,200 mg PO BID 09/06/18 Transfer Form Completed: Yes Disposition Discussed With: Patient, Family
[2018-09-06] MEDS: TORADOL IM STA (10:17)
== END 2018-09-06 10:40 | disposition home or self-care (01) ==
LOC: ED 09:39
DX: M54.31 Sciatica, right side (principal)
CPT/HCPCS: 96372; 99282

== ENCOUNTER 2018-09-25 09:52 | Inpatient (IN) ==
--- NOTE | 2018-09-25 10:47 | ED.PDOC ---
General ED Provider: Dr. DAMON DAVIS Chief Complaint: Shortness of Air Stated Complaint: Shortness of breath and chest congestion. Recent progressive worsening of COPD. Normally is in Pulmonary Rehab. States for the past 3 day has felt poorly with increasing dyspnea worsening with minimal exertion and O2 stats dropping from 93-94 % into the low 80's on 2 L 02. Feels congested and has thick tenaceous white colored sputum that feels like it gets trapped in his upper airways. Upon initial eval on O2 4 L NC at rest and PE revealed marked inspir/expir wheezing and rhonchi. Time Seen by Physician: 10:20 Mode of Arrival: Walk-In Information Source: Patient Exam Limitations: Clinical condition Primary Care Provider: HAILEY SCHULTE Nursing and Triage Documentation Reviewed and Agree: Yes Does patient meet sepsis criteria?: No System Inflammatory Response Syndrome: Not Applicable Sepsis Protocol: For patient's 13 years and over: Temp is 96.8 and below OR 101 and greater Pulse >90 BPM Resp >20/minute Acutely Altered Mental Status Are patient's symptoms suggestive of a new infection, such as: -Pneumonia -Skin, Soft Tissue -Endocarditis -UTI -Bone, Joint Infection -Implantable Device -Acute Abdominal Infection -Wound Infection -Meningitis -Blood Stream Catheter Infection -Unknown Respiratory Complaint Exam - Shortness of Air Complaint/Exam Onset/Duration: 2-3 days Symptoms Are: Worse Timing: Constant Initial Severity: Moderate Current Severity: Moderate Character: Reports: Dyspnea at rest, Dyspnea on exertion Aggravating: Reports: Movement Alleviating: Reports: None Associated Signs and Symptoms: Reports: Cough, Wheezing Related History: Reports: Similar episode History of Healthcare-Acquired Pneumonia: No Pulmonary Embolism Risk Factors: Reports: None Cardiac Risk Factors: Reports: None Pseudomonas Risk Factors: Reports: None Tuberculosis Risk Factors: Reports: None Home Oxygen Use: Yes Recent Stress Test: No Recent Echo/LV Function: No Respiratory Distress: Moderate Stridor Present: No Tracheal Deviation: No Subcutaneous Emphysema: No Accessory Muscle Use: No Retractions: Not Present Diminished Breath Sounds: Yes Unable to Speak Full Sentences: Yes Fatigue: Yes Leg Swelling: No Nohemy's Sign Present: No Grunting Respirations: No Kussmaul Respirations: No Differential Diagnoses: Airway Obstruction, Pulmonary Edema, COPD Exacerbation Related Surgical History: Reports: None Review of Systems - Review Of Systems Constitutional: Reports: Weakness Eyes: Reports: No symptoms Ears, Nose, Mouth, Throat: Reports: No symptoms Respiratory: Reports: Cough, Short of air, Wheezing Cardiac: Reports: No symptoms GI: Reports: No symptoms : Reports: No symptoms Musculoskeletal: Reports: No symptoms Skin: Reports: No symptoms Neurological: Reports: No symptoms Endocrine: Reports: No symptoms Hematologic/Lymphatic: Reports: No symptoms All Other Systems: Reviewed and Negative Past Medical History - Past Medical History Previously Healthy: No Endocrine: Reports: None Cardiovascular: Reports: None Respiratory: Reports: COPD Hematological: Reports: None Gastrointestinal: Reports: None Genitourinary: Reports: CKD Neuro/Psych: Reports: None Musculoskeletal: Reports: None Cancer: Reports: None - Surgical History General Surgical History: Reports: None - Family History Family History: Reports: None - Social History Smoking Status: Former smoker Hx Substance Use: No Alcohol Screening: None Physical Exam - Physical Exam Appearance: Ill-appearing, Obese Ill-appearing: Moderate Pain Distress: None Eyes: ABDIAS, EOMI, Conjunctiva clear ENT: Ears normal, Nose normal, Oropharynx normal Neck: Supple Respiratory: Airway patent, Breath sounds diminished, Rhonchi, Wheezes Cardiovascular: RRR, Pulses normal, No rub, No murmur Musculoskeletal: Normal strength, ROM intact, No edema, No calf tenderness Skin: Warm, Dry, Normal color Neurological: Sensation intact, Motor intact, Reflexes intact, Cranial nerves intact, Alert, Oriented Interpretation - Radiology Interpretation Radiology Results: No acute changes Exam Interpreted: CT Scan Radiology Interpretation By: ED Physician Radiology Results: No acute changes (COPD. CAD) - Rv Technician Rate: Normal Rhythm: Sinus - EKG Interpretation Time of EKG #1: 10:45 Rate: Normal Rhythm: Sinus Ectopy: None Letts: Right ST Segment: Normal Interpretation: Ant Infarct age undetermined Re-Evaluation - Re-Evaluation Time of Re-Evaluation: 12:30 Status: Improved Vital Signs Stable: Yes Appearance: NAD Lungs: Other (diminished with wheezing but improved air flow) Physician Notification - Case Discussed Physician Notified: Dr Alcazar Time of Notification: 12:30 (Discussed findings; Lovenox / VQ scan in AM) Critical Care Note - Critical Care Note Total Time (mins): 60 Course - Course Hematology/Chemistry: 09/25/18 11:00 09/25/18 11:08 Orders, Labs, Meds: Lab Review 09/25/18 09/25/18 09/25/18 11:00 11:00 11:06 WBC 7.46 RBC 5.04 Hgb 15.5 Hct 46.4 MCV 92.1 MCH 30.8 MCHC 33.4 RDW Coeff of Bhaskar 14.5 Plt Count 196 Immature Gran % (Auto) 0.1 Neut % (Auto) 62.7 Lymph % (Auto) 18.1 [place] % (Auto) 10.1 H Eos % (Auto) 8.7 H Baso % (Auto) 0.3 Immature Gran # (Auto) 0.0 Neut # (Auto) 4.7 Lymph # (Auto) 1.4 [place] # (Auto) 0.8 Eos # (Auto) 0.7 Baso # (Auto) 0.0 D-Dimer (Manual) 639.96 Puncture Site R rad O2 Saturation 97.0 ABG pH 7.382 ABG pCO2 38.2 ABG pO2 93.0 ABG HCO3 22.7 ABG Total CO2 24 ABG Base Excess -2 Albino Test + O2 Delivery Device Nc Oxygen Liter Flow 2.00 Sodium Potassium Chloride Carbon Dioxide Anion Gap BUN Creatinine Estimated GFR (MDRD) BUN/Creatinine Ratio Glucose Lactic Acid Calcium Magnesium Total Bilirubin AST ALT Alkaline Phosphatase NT-Pro-B Natriuret Pep Total Protein Albumin Globulin Albumin/Globulin Ratio Procalcitonin 09/25/18 09/25/18 09/25/18 11:06 11:06 11:06 WBC RBC Hgb Hct MCV MCH MCHC RDW Coeff of Bhaskar Plt Count Immature Gran % (Auto) Neut % (Auto) Lymph % (Auto) [place] % (Auto) Eos % (Auto) Baso % (Auto) Immature Gran # (Auto) Neut # (Auto) Lymph # (Auto) [place] # (Auto) Eos # (Auto) Baso # (Auto) D-Dimer (Manual) Puncture Site O2 Saturation ABG pH ABG pCO2 ABG pO2 ABG HCO3 ABG Total CO2 ABG Base Excess [place] Test O2 Delivery Device Oxygen Liter Flow Sodium Potassium Chloride Carbon Dioxide Anion Gap BUN Creatinine Estimated GFR (MDRD) BUN/Creatinine Ratio Glucose Lactic Acid 0.76 Calcium Magnesium 2.07 Total Bilirubin AST ALT Alkaline Phosphatase NT-Pro-B Natriuret Pep Total Protein Albumin Globulin Albumin/Globulin Ratio Procalcitonin < 0.05 09/25/18 09/25/18 11:06 11:08 WBC RBC Hgb Hct MCV MCH MCHC RDW Coeff of Bhaskar Plt Count Immature Gran % (Auto) Neut % (Auto) Lymph % (Auto) [place] % (Auto) Eos % (Auto) Baso % (Auto) Immature Gran # (Auto) Neut # (Auto) Lymph # (Auto) [place] # (Auto) Eos # (Auto) Baso # (Auto) D-Dimer (Manual) Puncture Site O2 Saturation ABG pH ABG pCO2 ABG pO2 ABG HCO3 ABG Total CO2 ABG Base Excess [place] Test O2 Delivery Device Oxygen Liter Flow Sodium 135.9 Potassium 4.12 Chloride 99.4 Carbon Dioxide 25.0 Anion Gap 15.62 BUN 12.9 Creatinine 1.05 Estimated GFR (MDRD) 68.00 BUN/Creatinine Ratio 12.28 Glucose 97.7 Lactic Acid Calcium 9.14 Magnesium Total Bilirubin 0.91 AST 23.7 ALT 19.6 Alkaline Phosphatase 68.7 NT-Pro-B Natriuret Pep 67.400 Total Protein 6.77 Albumin 4.10 Globulin 2.67 Albumin/Globulin Ratio 1.53 Procalcitonin Orders Category Date Time Status ABG DRAW REQUEST DAILY@0600 CARDIO 09/26/18 06:00 Ordered ABG DRAW REQUEST DAILY@0600 CARDIO 09/27/18 06:00 Ordered ABG DRAW REQUEST DAILY@0600 CARDIO 09/28/18 06:00 Ordered ABG DRAW REQUEST DAILY@0600 CARDIO 09/29/18 06:00 Ordered ABG DRAW REQUEST Stat CARDIO 09/25/18 10:36 Completed ABG DRAW REQUEST Stat CARDIO 09/25/18 12:30 Completed EKG-(ED ONLY) Stat CARDIO 09/25/18 10:36 Completed NEBULIZER TREATMENT Stat CARDIO 09/25/18 10:54 Completed VAPOTHERM Routine CARDIO 09/25/18 11:30 Active ABG DAILY@0600 LAB 09/26/18 06:00 Ordered ABG DAILY@0600 LAB 09/27/18 06:00 Ordered ABG Stat LAB 09/25/18 11:00 Completed ARTERIAL BLOOD GAS [ABG] Stat LAB 09/25/18 12:50 Completed BLOOD CULTURE (ED ONLY) Stat LAB 09/25/18 10:39 Ordered CBC W/ AUTO DIFF Stat LAB 09/25/18 11:00 Completed CMP [COMPREHENSIVE METABOLIC PANEL] Stat LAB 09/25/18 11:08 Completed D-DIMER Stat LAB 09/25/18 11:06 Completed LACTIC ACID Stat LAB 09/25/18 11:06 Completed MAGNESIUM Stat LAB 09/25/18 11:06 Completed NT-PROBNP Stat LAB 09/25/18 11:06 Completed PROCALCITONIN Stat LAB 09/25/18 11:06 Completed RAPID STREP SCREEN [MOLECULAR GROUP A STREP] Stat LAB 09/25/18 11:06 Completed SPUTUM CULTURE Stat LAB 09/25/18 11:30 Ordered UA [URINALYSIS C & S IF INDICATED] Stat LAB 09/25/18 12:32 Completed Doxycycline Hyclate Inj [Doxy-100] 100 mg MEDS 09/25/18 12:01 Active 0.9 % Sodium Chloride [Sodium Chloride] 100 ml IV ONCE Ipratropium/Albuterol Neb [Duoneb] MEDS 09/25/18 10:53 Discontinued 1 vial NEB ONCE STA CHEST, 1V AP ONLY Stat RADS 09/25/18 10:38 Completed Medications Generic Name Dose Route Start Last Admin Trade Name Freq PRN Reason Stop Dose Admin Enoxaparin Sodium 90 mg 09/25/18 21:00 Lovenox SUBCUT Q12HR BANDAR Doxycycline Hyclate 100 mg/ 100 mls @ 50 mls/hr 09/25/18 12:01 09/25/18 13:49 Sodium Chloride IV 09/25/18 14:00 50 mls/hr ONCE STA Administration Discontinued Medications Generic Name Dose Route Start Last Admin Trade Name Freq PRN Reason Stop Dose Admin Albuterol/Ipratropium 1 vial 09/25/18 10:53 09/25/18 11:02 Duoneb NEB 09/25/18 10:54 1 vial ONCE STA Administration Vital Signs: Temp Pulse Resp BP Pulse Ox 09/25/18 11:28 95 09/25/18 09:53 97.4 F L 87 20 145/82 H 87 L Departure - Departure Time of Disposition: 13:15 Disposition: ADMITTED INPATIENT Discharge Problem: COPD with acute exacerbation, Positive D dimer Condition: Good Pt referred to PMD for follow-up: Yes IPMP verified?: Yes Allergies/Adverse Reactions: Allergies Iodinated Contrast- Oral and IV Dye Adverse Reaction (Verified 09/25/18 10:06) levofloxacin [From Levaquin] Adverse Reaction (Verified 09/25/18 10:06) Home Medications: Ambulatory Orders Aspirin [Aspirin EC] 81 mg PO BEDTIME 02/13/15 Escitalopram Oxalate [Lexapro] 10 mg PO 1400 03/09/16 Tamsulosin HCl [Flomax] 0.4 mg PO 1400 12/25/16 Losartan Potassium 100 mg PO DAILY 03/10/17 Acyclovir 400 mg PO DAILY 02/07/18 Albuterol Sulfate [Ventolin Hfa] 2 puff IH Q4-6H PRN 02/07/18 Pantoprazole Sodium [Protonix] 40 mg PO DAILY 02/07/18 Tiotropium Br/Olodaterol HCl [Stiolto Respimat Inhal [place]] 4 gm IH DAILY Alprazolam [Xanax] 0.5 mg PO TID 02/08/18 Clonidine HCl [Catapres] 0.2 mg PO BID #60 tablet 02/20/18 Guaifenesin [Mucinex] 1,200 mg PO BID PRN 09/06/18 Albuterol Sulfate 0.083% Neb [Albuterol 0.083% Neb] 1 vial NEB BID 09/25/18 Mometasone Furoate [Asmanex Hfa] 2 puff IH BID 09/25/18 Disposition Discussed With: Patient, Family
[2018-09-25] MEDS ORDERED: DUONEB NEB STA (10:53)
--- NOTE | 2018-09-25 11:19 | DI ---
EXAM: Two views of the chest. History: Dyspnea. Comparison: Chest radiograph 04/04/2018 Findings: Heart size is normal. Emphysema. Bibasilar areas of subsegmental atelectasis. No apprec iable pleural fluid and no pneumothorax. No acute osseous abnormalities. Calcified granulomas again seen within the thorax. Impression: Emphysema and bibasilar areas of subsegmental atelectasis. If symptoms persist, recomme nd chest CT
[2018-09-25] MEDS ORDERED: DOXY-100 100 MG in SODIUM CHLORIDE 100 ML IV STA (12:01)
--- NOTE | 2018-09-25 13:52 | CT ---
EXAM: CT of the chest without contrast History: Chronic obstructive pulmonary disease Comparison: Chest radiograph 09/25/2018, chest CT 02/10/2018 Technique: Multiplanar CT images through the thorax were obtained without the administration of IV c ontrast Findings: Heart size is normal. Coronary calcifications. No thoracic aortic aneurysm. No pericard ial effusion. No pathologically enlarged thoracic lymph nodes. Calcified granulomas are again seen within the thorax. Emphysema and stable chronic areas of scarring and subsegmental atelectasis. No consolidation. No pleural fluid and no pneumothorax. No suspicious lung masses or lung nodules. Within the visualized upper abdomen, status post cholecystectomy. Calcified granulomas within the sp jami. No acute osseous abnormalities. Impression: 1. No acute intrathoracic process. 2. Chronic obstructive pulmonary disease with emphysema. 3. Coronary artery disease. 4. Old granulomatous disease. 5. No significant interval change in the bilateral areas of scarring and subsegmental atelectasis.
--- NOTE | 2018-09-25 14:00 | PCM ---
- Chief Complaint Chief Complaint: SOA and Chest Congestion - History of Present Illness History of Present Illness: 77 yo CM patient of Dr. Gonzalez. presented to ED 09/25/18 at 10:20 am as a walk-in with SOA and chest congestion x 3 days. 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 CV status is stable. Normally in pulmonary rehab. Noted to ED provider that his sx had progressively worsened since saturday/saturday and he had increased CANO, Dypsnea at rest, Coughing worsening, mucus productions worsening, suggesting 3/3 cardinal features of a COPD exacerbation. [place] poorly, O2 dropping from 93-94% into the low 80's at home. Normally on 2 L Oxygen. He feels congested, prominent mucus , white colored sputum, sputum trapping, SOA. In ER he was on 4L NC and exam showed marked wheezing/rhonchi and discomfort/respiratory distress. Vitals in the ER reviwed and temp afebrile 97.4, pulse good at 87, RR reasonable at 20 and BP mildly elevated at 145/82 an dpulse ox 87%. Repeat vitals 11:28 pulse ox of 95%. Based on vitals, he did not meet SIRS criteria or suggested Sepsis. CXR was completed in ER and suggested subsegmental atelectasis and emphysema. He has had several events of COPD. Last hospitalization appears to have been 02/13/18 and it appears that he has been in cardiac rehab regularly since that point. Holter ordered/completed 08/08/18 rate 47-150 avg 70, infequent pvc and rare pac, no ST/T changes, blank activity log for the 24 hour holter. 2D echo was completed 08/11/18. Enlarged left atrial and right Ventricular cavities. Wall motion normal, pericardium normal. LVH w/ enlarged atiral cavity. Normal contractility. 55% EF. PFT were done by Dr. Gonzalez. Looking over data, FEV1/ FVC of 41 is low FVC 88% and FEV1 50% suggests that this is obstructive problem with moderate severity. He presented today to ED and they did labs on him to include EKG/CBC/CMP/D-dimer. EKG was read as normal, original not available at time of H+P. CBC completed and showed WBC 7.46, hgb 15.5, plt 196. CMP sodium 135.9, K+ 4.12, cl 99.4, bun 12.9, cr 1.05, glucose 97.7. ABG was completed and showed ph 7.382, pco2 38.2, po2 93, hco3 22.7. ABG: Supports non gap metabolic acidosis with compensated respiratory alkalosis. Repeat ABG on Vapotherm ph 7.392, hc03 22.1, sodium 135.9, cl 99.4 and albumin 4.10 showed primary metabolic acidosis with appropriately compensated respiratory alkalosis and additional metabolic alkalosis. Ddimer was 639.96. lactic acid 0.76, magnesium 2.07, procalcitonin <0.05. NT pro bnp 67.400. Remainder of labs unremarkable. I was contacted by ED Dr. Velazco 13:15 and we discussed this case 1:1. I noted elevated ddimer and asked about CT PE and they checked on this. Found patient to be allergic to iodinated contrast dye oral and IV. I requested lovenox 1mg/kg dosing until we can get a VQ in the am. He was given IV doxy x 1 dose which was reasonable. Allergy to levaquin. He has no e/o sepsis, no SIRS , CXR was negative. A CT chest without contrast was ordered, Dr. Velazco called me on my cell and let me know that it was negative. I discussed w/o CT contrast we cannot know that and thus we would need the VQ tomorrow. I asked why Ddimer ordered and he noted acute SOA. I asked about calf pain and reported none. No travel, no surgery, no other major red flags for DVT. I discussed + Ddimer is low specificity, high false + rate and that it can be present for many reasons to include infection, VTE/PE, CHF, AI disease, ACS. I reviewed the GENEVA score for this patient (REVISED) as he is following with hematology/ oncology. He has a score of 4 points moderate risk group ~20-30% incidence of PE from several studies. This did not change if I factored in possible malignancy. I thus talked with ER about 1mg/kg q 12 hour dosing. If VQ + or equivocal this is a difficult situation based on a low yield test. Patient admitted to inpatient status. Patient seen in room 119. Daughter Leisa, Step daughter Tiki and neighbor present in room. He has had worsening sciatica over last 1-2 weeks that has caused him to have more difficulty breathing. The patient has had pain up to 9/10 in his right buttock and right hip. SOA on Vapotherm. Long history of COPD, O2 dependent, he is aware of his worsening health with time and wants to be DNR, no intubation at any cost. Family in room when I discussed this. - Review of Systems Constitutional: fatigue, loss of appetite. No: fever, chills, weakness, sweats , other Eyes: No: blurred vision, double-vision, discharge, itching, pain, redness, photophobia, other Ears: No: pain, bleeding, drainage, ringing, hearing loss, other Nose: congestion. No: bleeding, discharge, other Throat: pain. No: swelling, voice change, other Mouth: No: bleeding, pain, swelling, other Respiratory: cough, shortness of air, wheeze. No: hemoptysis, pain with breathing, other Cardiovascular: No: chest pain, left arm pain, diaphoresis, PND, orthopnea, edema, palpitations, syncope, other Gastrointestinal: nausea. No: abdominal pain, vomiting, diarrhea, melena, hematemesis, hematochezia, dysphagia, constipation, other Genitourinary: No: dysuria, hematuria, frequency, incontinence, flank pain, penile discharge, testicular pain, testicular swelling, other Neurological: headache. No: dizziness, seizure, numbness, weakness, speech difficulty, problems with walking, tremor, fainting, other Musculoskeletal: pain. No: swelling in joints, other Skin: No: rash, pruritus, lacerations, wounds, bruising, other Immunology: No: hives, itching, frequent infections, difficulty healing, other Hematology: No: easy bruising, easy bleeding, swollen glands, other Endocrine: No: weight changes, cold intolerance, heat intolerance, excessive thirst, excessive hunger, polyuria, other Psychiatric: No: depression, anxiety, sleeplessness, hopelessness, suicidal, hallucinations, other Habits: No: tobacco use, substance use, alcohol use, other - Past Medical History Past Medical History: Chronic bronchitis, CAD, Anxiety disorder, polycythemia ( therapeutic phlebotomy), HTN, anxiety, COPD w/ O2 dependence, BERNY, multiple pulmonary nodules. DJD of lumbar spine, sciatica. Pulmonology Dr. Morales. PCP Dr Gonzalez. - Past Surgical History Past Surgical History: CAD w/ stenting ~1999. Bilateral cataract 2014. - Allergies Allergies/Adverse Reactions: Allergies Allergy/AdvReac Type Severity Reaction Status Date / Time Iodinated Contrast- Oral and AdvReac Verified 09/25/18 10:06 IV Dye levofloxacin [From Levaquin] AdvReac Verified 09/25/18 10:06 - Medications Medications: Medications Generic Name Dose Route Start Last Admin Trade Name Freq PRN Reason Stop Dose Admin Enoxaparin Sodium 90 mg 09/25/18 21:00 Lovenox SUBCUT Q12HR BANDAR Doxycycline Hyclate 100 mg/ 100 mls @ 50 mls/hr 09/25/18 12:01 09/25/18 13:49 Sodium Chloride IV 09/25/18 14:00 50 mls/hr ONCE STA Administration - Family History Past Family History: No family history of stroke, DM, Thyroid disease, cancers. Family history of CAD. Not contributory to this admission other than history of emphysema in family. - Social History Past Social History: Former Smoker. No ETOH, no drug use. - Body Composition Height: 6 ft Weight: 190 lb Body Mass Index (BMI): 25.7 - Physical Examination HEENT: Temp Pulse Resp BP Pulse Ox 09/25/18 11:28 95 09/25/18 09:53 97.4 F L 87 20 145/82 H 87 L Constitutional: Appearance-moderate respiratory distress started on vapotherm, nebs given and this did improve. Consistent with stated age. Orientation- Oriented x 3, alert Build and Nutrition-[normal, bmi 25] General- Patient is pleasant and cooperative with the interview and exam. Short of breath, speaks in fragmented sentences. Integumentary: General-No rashes, ulcers or lesions. mild erythema along sacrum but this is not broken down and ulcerated yet. Palpation- Normal skin moisture/ turgor. Skin is warm to touch, appropriate. Capillary refill is normal bilateral Upper and lower extremity. Head/Neck: Head- normocephalic and atraumatic. Neck- without visible/palpable lumps or pulsations. Palpation- No bony tenderness about head/neck along frontal, occipital, temporal, parietal, mastoid, jawline, zygoma, orbit or any other location. NO temporal artery tenderness. No TMJ tenderness. Neck Supple. Thyroid-No thyromegaly, no nodules Eye: Bilaterally PERRLA, EOMI. No discharge. Upper and lower eyelids are normal. Sclera/conjunctiva normal without discharge. Cornea is normal and clear. Lens is normal. Eyeball appears normal. No ciliary flushing, no conjunctival injection. ENMT: Pinna- normal without tenderness or erythema. External auditory canal Left- normal without erythema or discharge, no excessive cerumen. External auditory canal Right-normal without erythema or discharge, no excessive cerumen. TM left- Blandon/pearly, normal light reflex and anatomy TM Right- [place]/ pearly, normal light reflex and anatomy Hearing Assessment-normal to conversational speech. Nose and sinus- No sinus tenderness along frontal/ maxillary region. External appearance normal and midline. Nares- bilateral quiet airflow, clear discharge. Nasal mucosa- No bleeding noted and no ulcerations observed. Boggy turbinates, erythematous. Lips- normal color, moist without cracks/lesions Oral Cavity/Palate- hard/soft palate intact without lesions, oral mucosa pink and moist. Tongue normal midline. Oropharynx- no pharyngeal erythema, Uvula midline. post nasal drip. No posterior exudate. Salivary glands- Non tender to palpation CHEST/LUNG: Inspection- symmetric chest wall no pectus deformity. Increased effort, accessory muscle use in abdomen, mild to moderate distress, Palpation- nontender sternum, ribline. No abnormal pulsations. Auscultation- Breath sounds diminished throughout all lung azul. tracheal sounds, bronchial sounds overlying sternum, Bronchovessicular sounds between scapulae posteriorly , vessicular breath sounds heard throughout periphery. Adventitious sounds- Scattered wheezes, no rales, no e/o consolidation, scattered rhonchi. Coarse sounds throughout. CARDIOVASCULAR: Carotid artery- normal, no bruits or abnormal pulsations. Jugular vein- no pulsations. Palpation/Percussion- Normal PMI, no palpable thrill Auscultation- Regular rate and rhythm. No murmur noted in sitting, supine positions. Extremities- no digital clubbing, cyanosis, edema, increased warmth. ABDOMEN: Inspection- normal and no visible pulsations. Normal contour. Auscultation- Bowel sounds normal, no abdominal bruits. Palpation/Percussion- soft, non-tender, no rebound tenderness, no rigidity (guarding), no jar tenderness, no masses. Liver-no hepatomegaly, Spleen no splenomegaly, Hernias - none. Rectal not examined. Peripheral Vascular: Upper extremity Left- Normal temperature with pink nailbeds and no ulcerations. Upper extremity Right- Normal temperature with pink nailbeds and no ulcerations. Lower extremity- Normal temperature with pink nailbeds and no ulcerations. DP pulses 2+ bilaterally. Pedal hair intact. Normal capillary refill. Edema- No edema. Musculoskeletal: Generalized-No generalized swelling or edema of extremities, no digital clubbing or cyanosis, neurovascularly intact all four extremities. Upper extremity- Symmetrical posture. No visible deformity. Normal sensation along medial and lateral upper extremity proximally and distally. NO tenderness overlying shoulder, lateral/medial epicondyle. Electrocardiograph Operator 5/5 and strength 5/5 bilateral UE. Elbow palpated, no tenderness overlying olecranon. Normal supination, pronation to active/passive ROM and to resisted rotation. Bicep insertion/tricep insertion appear normal without obvious pathology. Rotator cuff evaluated and intact. Normal wrist ROM bilaterally. Normal hand movement, intrinsic muscles of hands normal. No tenderness to palpation of hands/wrists/ elbows. Lower extremity- Hip: Not tender to palpation, no pain, no swelling, edema or erythema of surrounding tissue, normal strength and tone. Normal appearing hip ROM bilaterally without pain. Knee: Knee ROM normal. No tenderness overlying trochanters, no tenderness about patella, quad tendon, patellar tendon. No tenderness at tibial tuberosity. Ankle: normal ROM not tender to palpation along medial/lateral malleolus. Foot: Normal movement of toes, no tenderness bilateral feet/toes. Normal foot type. Spine/Ribs- No deformities, masses or tenderness, no known fractures, normal strength, Normal ROM. Paraspinal tenderness lumbar. CRISTEL + on right. Piriformis test + on right. SLR negative bilaterally. Hallux strength 5/5, dorsiflexion of feet 5/5. Normal reflexes, normal str. Neurological: General- Moves all 4 extremities symmetrically. Symmetrical face and body posture. Cranial nerves- individually evaluated II-XII and intact. PERRLA, Normal EOMI, visual/special senses appear intact, Face is symmetrical and normal sensation/movement, normal tongue, normal strength/posture of neck musculature. Reflexes- intact with DTR 2+ patellar, Achilles, bicep, brachial, tricep. Ankle clonus normal with 2 beats. Strength- 5/5 bilateral UE and LE. Soft touch- intact bilateral UE and LE. Temperature sensation- intact bilateral UE and LE. Neuropsych: Oriented- Person, place, time. (AAOx3), Mood/affect- normal and congruent. Able to articulate well. Speech-Normal speech, normal rate, normal tone, normal use of language, volume and coherence. Thought content- normal with ability to perform basic computations and apply abstract thought/reason. Associations- intact, no SI/HI, no hallucinations, delusions, obsessions. Judgment/insight- Appropriate. Memory-Recall intact, remote and recent memory intact. Knowledge- Age appropriate fund of knowledge, concentration and attention span normal. Lymphatic: Head/Neck- normal size and non tender to palpation. Axillary- normal size and non tender to palpation. Femoral and Inguinal- normal size and non tender to palpation. - Lab/Tests/Diagnostic Imaging Lab/Tests/Diagnostic Imaging: Laboratory Last Values WBC 7.46 K/ul (4.2-10.2) 09/25/18 11:00 RBC 5.04 10^6/ul (4.70-6.10) 09/25/18 11:00 Hgb 15.5 g/dl (14.0-18.0) 09/25/18 11:00 Hct 46.4 % (42.0-52.0) 09/25/18 11:00 MCV 92.1 fl (80.0-94.0) 09/25/18 11:00 MCH 30.8 pg (27.0-31.0) 09/25/18 11:00 MCHC 33.4 (31.8-35.4) 09/25/18 11:00 RDW Coeff of Bhaskar 14.5 % (11.6-14.8) 09/25/18 11:00 Plt Count 196 10^3/uL (140-440) 09/25/18 11:00 Immature Gran % (Auto) 0.1 % (0.0-5.0) 09/25/18 11:00 Neut % (Auto) 62.7 09/25/18 11:00 Lymph % (Auto) 18.1 (10.0-50.0) 09/25/18 11:00 [place] % (Auto) 10.1 (0-10) H 09/25/18 11:00 Eos % (Auto) 8.7 % (0.0-7.0) H 09/25/18 11:00 Baso % (Auto) 0.3 % (0.0-3.0) 09/25/18 11:00 Immature Gran # (Auto) 0.0 (0.0-1.0) 09/25/18 11:00 Neut # (Auto) 4.7 K/ul (2.0-6.9) 09/25/18 11:00 Lymph # (Auto) 1.4 K/uL (0.60-3.4) 09/25/18 11:00 [place] # (Auto) 0.8 K/uL (0.4-2.0) 09/25/18 11:00 Eos # (Auto) 0.7 K/ul (0.0-0.7) 09/25/18 11:00 Baso # (Auto) 0.0 K/uL (0-0.2) 09/25/18 11:00 D-Dimer (Manual) 639.96 ng/mL (<500) 09/25/18 11:06 Puncture Site R rad 09/25/18 12:50 O2 Saturation 96.0 % (95-100) 09/25/18 12:50 ABG pH 7.392 (7.35-7.45) 09/25/18 12:50 ABG pCO2 36.4 mmHg (35-45) 09/25/18 12:50 ABG pO2 83.0 mmHg (85-100) L 09/25/18 12:50 ABG HCO3 22.1 (22.0-26.0) 09/25/18 12:50 ABG Total CO2 23 (22.0-28.0) 09/25/18 12:50 ABG Base Excess -3 (-2.0-2.0) L 09/25/18 12:50 [place]ino Test + 09/25/18 12:50 O2 Delivery Device Vapotherm 09/25/18 12:50 Oxygen Liter Flow 2.00 09/25/18 11:00 FiO2 % 28.0 % 09/25/18 12:50 Sodium 135.9 mmol/L (134.5-145) 09/25/18 11:08 Potassium 4.12 mmol/L (3.5-5.1) 09/25/18 11:08 Chloride 99.4 mmol/L (98-107) 09/25/18 11:08 Carbon Dioxide 25.0 mmol/L (22-30.0) 09/25/18 11:08 Anion Gap 15.62 09/25/18 11:08 BUN 12.9 mg/dL (9-20) 09/25/18 11:08 Creatinine 1.05 mg/dL (0.60-1.10) 09/25/18 11:08 Estimated GFR (MDRD) 68.00 mL/min 09/25/18 11:08 BUN/Creatinine Ratio 12.28 09/25/18 11:08 Glucose 97.7 mg/dL (74-106) 09/25/18 11:08 Lactic Acid 0.76 mmol/L (0.7-2.1) 09/25/18 11:06 Calcium 9.14 mg/dL (8.4-10.2) 09/25/18 11:08 Magnesium 2.07 mg/dL (1.6-2.3) 09/25/18 11:06 Total Bilirubin 0.91 mg/dL (0.2-1.3) 09/25/18 11:08 AST 23.7 U/L (17-59) 09/25/18 11:08 ALT 19.6 U/L (0-50) 09/25/18 11:08 Alkaline Phosphatase 68.7 U/L (56-119) 09/25/18 11:08 NT-Pro-B Natriuret Pep 67.400 pg/mL (0-300) 09/25/18 11:06 Total Protein 6.77 g/dL (6.3-8.2) 09/25/18 11:08 Albumin 4.10 g/dL (3.5-5.0) 09/25/18 11:08 Globulin 2.67 09/25/18 11:08 Albumin/Globulin Ratio 1.53 09/25/18 11:08 Procalcitonin < 0.05 ng/mL (<0.05) 09/25/18 11:06 Urine Color Yellow (YELLOW) 09/25/18 12:32 Urine Clarity Clear (CLEAR) 09/25/18 12:32 Urine pH 7.0 (5-9) 09/25/18 12:32 Ur Specific [place] 1.020 (1.005-1.030) 09/25/18 12:32 Urine Protein 1+ (NEGATIVE) 09/25/18 12:32 Urine Glucose (UA) Negative (NEGATIVE) 09/25/18 12:32 Urine Ketones Negative (NEGATIVE) 09/25/18 12:32 Urine Blood Negative (NEGATIVE) 09/25/18 12:32 Urine Nitrite Negative (NEGATIVE) 09/25/18 12:32 Urine Bilirubin Negative (NEGATIVE) 09/25/18 12:32 Urine Urobilinogen 0.2 (0.2) 09/25/18 12:32 Ur Leukocyte Esterase Negative (NEGATIVE) 09/25/18 12:32 Ur Squamous Epith Cells Not present (0-5) 09/25/18 12:32 Urine Mucus Trace (NOT PRESENT) 09/25/18 12:32 CXR: Emphysema and bibasilar areas of subsegmental atelectasis. ABG: Supports non gap metabolic acidosis with compensated respiratory alkalosis. Reviewed HOlter 08/08/18. Reviewed Echo 08/11/18. EF 55% LVH w/ left atrial enlargement. Reviewed PFT 08/07/18: FEV1/FVC is low at 41. FVC pred 88% and FEV1 50%. Obstructive pattern moderate COPD. - Assessment (1) COPD with acute exacerbation Status: Acute Code(s): J44.1 - CHRONIC OBSTRUCTIVE PULMONARY DISEASE W (ACUTE ) EXACERBATION SNOMED Code(s): 873690072 (2) Lumbosacral pain Status: Acute Code(s): M54.5 - LOW BACK PAIN SNOMED Code(s): 832074980 (3) Positive D dimer Status: Acute Code(s): R79.1 - ABNORMAL COAGULATION PROFILE SNOMED Code(s): 411665877 (4) Hypoxemia Status: Inactive Code(s): R09.02 - HYPOXEMIA SNOMED Code(s): 384747404 - Plan Plan: COPD: Suspect acute bronchitis with possibility of COPD exacerbation by history and exam. We reviewed smoking history, former smoker. All tobacco avoidance highly encouraged today (both active and passive). We reviewed GOLD criteria. Gold defines exacerbation of COPD as acute event leading to worsening of respiratory symptoms with 3 cardinal features: increased cough freq/severity, sputum production volume/quality, worsened Dyspnea. He has met 3/3 of these. Risk factors for exacerbations include advancing age, duration of COPD, history of abx use, prev hospitalization within past 12 months (02/2018), mucus production (increased, normally wearing compression vest), comorbidities to include heart disease (present w/ stent 20 yr ago), CHF (ABSENT), DM (ABSENT), and exposures. Respiratory infections are the most likely trigger in up to 70% of cases to include viral processes such as Rhino (warmer months), chaudhry, adeno , parainfluenza (cooler months), allergic process, viral/bacterial pneumonia. Studies have shown benefit to bronchodilators (grade 1B) and show reduced time to resolution of cough. Anticholinergic agents are often used in combination as studies show enhanced bronchodilation beyond that seen by either agent alone. He has history of BPH on flomax. R/B/A to LAMA d/w patient and family. Caution advised if any history of BPH or similar in male patients. Systemic glucocorticoids have been shown to have beneficial effect. Recommendations include dosing steroid equivalent to prednisone 40 mg daily x 5 days. Inhaled GC are of minimal benefit in acute exacerbation, but should not be stopped. We will continue his inhaled GC. We discussed that studies suggest use of abx is controversial. These are recommended to be avoided for simple bronchitis. However with his chronic disease, I will opt for BID dosing of doxy 100mg. The patient/family voiced understanding. Common abx include doxycycline, FQ ( ALLERGY), 3rd gen Cephalosporin with or without macrolide. Discussed pros and cons of steroid use both injectible and oral forms. Reviewed LAMA, LABA, GC, EMERALD agents. Obstructive Pattern PFT reviewed, echo reviewed, holter reviewed, last admit 02/2018 reviewed. Reviewed the PFT from 08/07/18. FEV1/FVC 41 and FVC is normal. Obstructive defect is realized with moderate severity. - Admit inpatient - IV doxy 100 BID - Tele - Vapotherm - CBC/CMP in am - ABG in am - Albuterol q 4 hours (between duonebs) - Duoneb QID - Continue mucinex - ?Benefit to mucomyst will hold this for now - Reassess in am tomorrow - Prednisone 40mg daily - bring compression vest from home - Continue home meds as listed in orders. Elevated Blood Pressure: Has not missed any doses of clonidine. Suspect essential HTN. Good BP control is encouraged with Goal BP based on JNC 8 guidelines: For the general population <60 yr old goal BP <140/90 and for those >60 150/90. For patients of all ages with Diabetes, CKD, Known CAD the goal is <140/90. Reviewed medications and discussed the typical first line agents to include thiazide diuretic or bradley-I or ARB or CCB alone or in combo. Telemetry. Monitor cholesterol regularly. NO e/o CHF at present. Echo reviewed. Weight stable. Lumbago w/ ?Sciatica on right: No red flags to history or exam. NO urinary issues, no stooling issues, no saddle numbness. Will cover with morphine 2 q 6 hours while in hospital. This will help with problem 1 and with back pain simultaneously. R/B/A to opiates d/w patient and family and they agree. Elevated Ddimer: Lovenox 1mg/kg BID. VQ in am allergy to contrast dye. Several reasons for Ddimer to be elevated. He has moderate risk of PE 20-30% incidence base don age and heart rate. He has no known cancers. Polycythemia: CBC looks okay, continue to monitor. Labs during hospital likely therapeutic. Former smoker: Continue tobacco free lifestyle Allergy to contrast Dye: Diet: Regular Code Status: DNR. Disposition: I suspect patient will be in hospital ~3-4 days. COPD exacerbation #2 for the last 12 months. He is in cardiopulm rehab. He has had worsening breathing. ABG checked and are worse than those seen in 02/2018. His PH is ~0.5 lower. Continue nebs, steroids, abx, pulm evaluation. No fever, imaging negative. Concerned about the Ddimer test but do not think he has a PE. NO e/o on EKG. Tele has been fine. However with low specificity of testing, I need to order the next level scan. VQ is ordered. IF equivocal or positive, we will discuss options. Normally follows with pulm Dr. Ontiveros. LUng function at present is okay/improved from initial eval by ER staff. Elevated BP w/ ? Pain response, will continue to monitor. Noted no missed doses. Long discussion today with patient about code status, discuss with family as well. He is a PCP of Dr. Gonzalez, I am covering in the interim. Will see patient again in am. >70 minutes spent on this admission today. Personally reviewed ABG w/ interpretation, looked at CXR imaging personally, discussed case with ER physician 1:1 today.
[2018-09-25 15:12] VITALS: BMI 25.7
[2018-09-25] MEDS: MORPHINE 2 MG/ML SYRINGE IVP PRN ×2 (15:17→21:38)
[2018-09-25] MEDS: DUONEB NEB SCH (17:06)
[2018-09-25] MEDS: DOXY-100 100 MG in SODIUM CHLORIDE 100 ML IV SCH (20:18)
[2018-09-25] MEDS: XANAX PO SCH (20:19)
[2018-09-25] MEDS: ASPIRIN EC PO SCH (20:19)
[2018-09-25] MEDS: MUCINEX PO SCH (20:19)
[2018-09-25] MEDS: CATAPRES PO SCH (20:19)
[2018-09-25] MEDS: LOVENOX SUBCUT SCH (20:20)
[2018-09-25] MEDS: MOMETASONE FUROATE IH SCH (20:21)
[2018-09-25] MEDS: ALBUTEROL 0.083% NEB NEB PRN (20:53)
[2018-09-25] MEDS ORDERED: MUCINEX PO SCH (21:00)
[2018-09-26] MEDS: DUONEB NEB SCH ×5 (00:04→23:20)
[2018-09-26] MEDS: ALBUTEROL 0.083% NEB NEB PRN ×3 (03:08→20:05)
[2018-09-26] MEDS: MORPHINE 2 MG/ML SYRINGE IVP PRN ×2 (03:38→23:05)
[2018-09-26] MEDS: PROTONIX PO SCH (06:23)
--- NOTE | 2018-09-26 07:03 | PCM.PROG ---
Subjective: 77 yo WM HD #2 with COPD, REspiratory failure, elevated Ddimer, contrast dye allergy has done okay overnight. Noted no abx coverage after ER order fell off. I discussed with staff yesterday pm to continue BID dosing of doxycycline. WE will give prednisone equivalent of 40mg PO daily. Lovenox has been given 1mg/kg BID for therapeutic coverage. He remains afebrile with temp 97.6-98.3. BP have been okay since admit 145/82, 155/90, 141/88, 143/83. O2 saturations have been as low as 87 at presentation but since then have been 91-96. Three were 2 readings of 20 which are likely inaccurate. RR 16-22. Tele ST/NSR reviewed. I reviewed Case management note, floor notes as well. Talked with overnight nurse and he had no issues. I+O reviwed and he had 2 ml/kg/hr output last shift but minimal so far this am. He is tolerating liquids, at present there are no fluids ordered/running. He has no history of CHF. With stable vitals and tolerating PO (except NPO this am for procedure), I will add NS at 125 ml/hour for 500 ml. Consumed 100% dinner. This am resting comfortably, vaportherm in place. He is scheduled for VQ scan. Abx day #2 with doxy 100 IV. Labs this am showed WBC 7.65, hgb 15.1 and platelet 204 all stable. ABG pH 7.341, O2 93%, hc03 20.8, po2 73 Chemistry normal. He remains DNR. Does not want ventiltor at any cost. Aware of the risks. Discussed yesterday with numerous family members present. Talked with him this am and he was happy to be able to talk in longer sentences. Back pain 5/10, improved with morphine. Breathing better with morphine. He is happy with progress in last 24 hours. Due for VQ scan today. ABG: Anion gap metabolic acidosis primary w/ secondary resp acid and non gap met acid. ABG slightly worse despite clinically improved. Inpatient hospital stay: Day 2 Antibiotics: Doxy 100mg IV Day 2 (dose 2 this am) REVIEW OF SYMPTOMS: (Positives bolded) General: weight loss, fever, chills, night sweats, fatigue, appetite loss HEENT: blurry vision, eye pain, eye discharge, dry eyes, decreased vision, sore throat tinnitus, bloody nose, hearing loss, sinus pressure, ear pain/ pressure. Respiratory: shortness of breath, cough, hemoptysis, wheezing, pleurisy, Cardiovascular: chest pain, PND, palpitation, edema, orthopnea, syncope, swelling of extremities Gastro: Nausea, vomiting, diarrhea, hematemesis, abdominal pain, constipation Genito: hematuria, dysuria, glycosuria, hesitancy, frequency, incontinence [place]: Arthralgia (RIGHT HIP/BACK), myalgia, muscle weakness, joint swelling , NSAID use Skin: rash, pruritis, sores, nail changes, skin thickening, change in wart/mole , itching, rash, new lesions, pruritus, nail changes Neuro: Migraine, numbness, ataxia, tremor, vertigo, weakness, memory loss, Irritability, dizziness Endocrine: excessive thirst, polyuria, cold intolerance, heat intolerance, goiter Psychiatric: depression, anxiety, anti-depressants, alcohol abuse, drug abuse, insomnia, change in sleep pattern and mood changes Heme/lymph: easy bruising, bleeding gums, blood clots, swollen glands, lymphedema, Allergic/immune: allergic rhinitis, hay fever, hives Objective: Vital Signs - 24 hr 09/25/18 09/25/18 09/25/18 09:53 11:28 14:34 Temperature 97.4 F L 97.9 F Pulse Rate 87 88 Pulse Rate [ 88 Apical] Respiratory 20 20 Rate Blood Pressure 145/82 H O2 Sat by Pulse 87 L 95 91 L Oximetry 09/25/18 09/25/18 09/25/18 16:06 20:00 21:52 Temperature 98.3 F 97.6 F Pulse Rate 92 H 91 H Pulse Rate [ Apical] Respiratory 18 22 20 Rate Blood Pressure 155/90 H 141/88 H O2 Sat by Pulse 93 L 96 Oximetry 09/25/18 09/26/18 09/26/18 22:00 01:11 05:05 Temperature 98.1 F Pulse Rate 75 Pulse Rate [ Apical] Respiratory 16 Rate Blood Pressure 143/83 H O2 Sat by Pulse 20 L 20 L 94 L Oximetry 09/26/18 05:58 Temperature Pulse Rate Pulse Rate [ Apical] Respiratory Rate Blood Pressure O2 Sat by Pulse 94 L Oximetry Constitutional: Appearance-This am no respiratory distress still on vapotherm, nebs given and improving. Did have difficulty over night. Appears Consistent with stated age. Orientation- Oriented x 3, alert Build and Nutrition-[normal, bmi 25] General- Patient is pleasant and cooperative with the interview and exam. Short of breath persists, speaks in fragmented sentences but seems to be improving overall. Integumentary: General-No rashes, ulcers or lesions. mild erythema along sacrum but this is not broken down and ulcerated yet. Palpation- Normal skin moisture/ turgor. Skin is warm to touch, appropriate. Capillary refill is normal bilateral Upper and lower extremity. ENMT: Hearing Assessment-normal to conversational speech. Nose and sinus- No sinus tenderness along frontal/maxillary region. External appearance normal and midline. Nares- bilateral quiet airflow, clear discharge. Nasal mucosa- No bleeding noted and no ulcerations observed. Boggy turbinates, erythematous. Lips - normal color, moist without cracks/lesions Oral Cavity/Palate- oral mucosa pink and moist. Tongue normal midline. Oropharynx- no pharyngeal erythema, Uvula midline. post nasal drip. No posterior exudate. Salivary glands- Non tender to palpation CHEST/LUNG: Inspection- symmetric chest wall no pectus deformity. Increased effort, accessory muscle use in abdomen, mild to moderate distress, Palpation- nontender sternum, ribline. No abnormal pulsations. Auscultation- Breath sounds diminished throughout all lung azul. tracheal sounds, bronchial sounds overlying sternum, Bronchovessicular sounds between scapulae posteriorly , vessicular breath sounds heard throughout periphery. Adventitious sounds- Scattered wheezes increased today compared to yesterday, no rales, no e/o consolidation, scattered rhonchi. Coarse sounds throughout. CARDIOVASCULAR: Carotid artery- normal, no bruits or abnormal pulsations. Jugular vein- no pulsations. Palpation/Percussion- Normal PMI, no palpable thrill Auscultation- Regular rate and rhythm. No murmur noted in sitting, supine positions. Extremities- no digital clubbing, cyanosis, edema, increased warmth. ABDOMEN: Inspection- normal and no visible pulsations. Normal contour. Auscultation- Bowel sounds normal, no abdominal bruits. Palpation/Percussion- soft, non-tender, no rebound tenderness, no rigidity (guarding), no jar tenderness, no masses. Liver-no hepatomegaly, Spleen no splenomegaly, Hernias - none. Rectal not examined. Peripheral Vascular: Lower extremity- Normal temperature with pink nailbeds and no ulcerations. DP pulses 2+ bilaterally. Pedal hair intact. Normal capillary refill. Edema- No edema. Musculoskeletal: Generalized-No generalized swelling or edema of extremities, no digital clubbing or cyanosis, neurovascularly intact all four extremities. Spine/Ribs- No deformities, masses or tenderness, no known fractures, normal strength, Normal ROM. Paraspinal tenderness lumbar. CRISTEL + on right. Piriformis test + on right. SLR negative bilaterally. Hallux strength 5/5, dorsiflexion of feet 5/5. Normal reflexes, normal str. Neurological: General- Moves all 4 extremities symmetrically. Symmetrical face and body posture. Cranial nerves- individually evaluated II-XII and intact. PERRLA, Normal EOMI, visual/special senses appear intact, Face is symmetrical and normal sensation/movement, normal tongue, normal strength/posture of neck musculature. Neuropsych: Oriented- Person, place, time. (AAOx3), Mood/affect- normal and congruent. Able to articulate well. Speech-Normal speech, normal rate, normal tone, normal use of language, volume and coherence. Thought content- normal with ability to perform basic computations and apply abstract thought/reason. Associations- intact, no SI/HI, no hallucinations, delusions, obsessions. Lymphatic: Head/Neck- normal size and non tender to palpation. Laboratory Last Values WBC 7.65 K/ul (4.2-10.2) 09/26/18 05:00 RBC 4.97 10^6/ul (4.70-6.10) 09/26/18 05:00 Hgb 15.1 g/dl (14.0-18.0) 09/26/18 05:00 Hct 46.6 % (42.0-52.0) 09/26/18 05:00 MCV 93.8 fl (80.0-94.0) 09/26/18 05:00 MCH 30.4 pg (27.0-31.0) 09/26/18 05:00 MCHC 32.4 (31.8-35.4) 09/26/18 05:00 RDW Coeff of Bhaskar 14.7 % (11.6-14.8) 09/26/18 05:00 Plt Count 204 10^3/uL (140-440) 09/26/18 05:00 Immature Gran % (Auto) 0.7 % (0.0-5.0) 09/26/18 05:00 Neut % (Auto) 55.2 09/26/18 05:00 Lymph % (Auto) 23.8 (10.0-50.0) 09/26/18 05:00 [place] % (Auto) 9.9 (0-10) 09/26/18 05:00 Eos % (Auto) 10.1 % (0.0-7.0) H 09/26/18 05:00 Baso % (Auto) 0.3 % (0.0-3.0) 09/26/18 05:00 Immature Gran # (Auto) 0.1 (0.0-1.0) 09/26/18 05:00 Neut # (Auto) 4.2 K/ul (2.0-6.9) 09/26/18 05:00 Lymph # (Auto) 1.8 K/uL (0.60-3.4) 09/26/18 05:00 [place] # (Auto) 0.8 K/uL (0.4-2.0) 09/26/18 05:00 Eos # (Auto) 0.8 K/ul (0.0-0.7) H 09/26/18 05:00 Baso # (Auto) 0.0 K/uL (0-0.2) 09/26/18 05:00 D-Dimer (Manual) 639.96 ng/mL (<500) 09/25/18 11:06 Puncture Site Lrad 09/26/18 04:14 O2 Saturation 93.0 % (95-100) L 09/26/18 04:14 ABG pH 7.341 (7.35-7.45) L 09/26/18 04:14 ABG pCO2 38.5 mmHg (35-45) 09/26/18 04:14 ABG pO2 73.0 mmHg (85-100) L 09/26/18 04:14 ABG HCO3 20.8 (22.0-26.0) L 09/26/18 04:14 ABG Total CO2 22 (22.0-28.0) 09/26/18 04:14 ABG Base Excess -5 (-2.0-2.0) L 09/26/18 04:14 Albino Test + 09/26/18 04:14 O2 Delivery Device Vapotherm 09/26/18 04:14 Oxygen Liter Flow 2.00 09/25/18 11:00 FiO2 % 28.0 % 09/26/18 04:14 Sodium 135.8 mmol/L (134.5-145) 09/26/18 05:00 Potassium 4.23 mmol/L (3.5-5.1) 09/26/18 05:00 Chloride 100.2 mmol/L (98-107) 09/26/18 05:00 Carbon Dioxide 24.7 mmol/L (22-30.0) 09/26/18 05:00 Anion Gap 15.13 09/26/18 05:00 BUN 16.0 mg/dL (9-20) 09/26/18 05:00 Creatinine 1.09 mg/dL (0.60-1.10) 09/26/18 05:00 Estimated GFR (MDRD) 65.00 mL/min 09/26/18 05:00 BUN/Creatinine Ratio 14.67 09/26/18 05:00 Glucose 97.2 mg/dL (74-106) 09/26/18 05:00 Lactic Acid 0.76 mmol/L (0.7-2.1) 09/25/18 11:06 Calcium 8.89 mg/dL (8.4-10.2) 09/26/18 05:00 Magnesium 2.07 mg/dL (1.6-2.3) 09/25/18 11:06 Total Bilirubin 1.05 mg/dL (0.2-1.3) 09/26/18 05:00 AST 24.7 U/L (17-59) 09/26/18 05:00 ALT 19.5 U/L (0-50) 09/26/18 05:00 Alkaline Phosphatase 68.8 U/L (56-119) 09/26/18 05:00 NT-Pro-B Natriuret Pep 67.400 pg/mL (0-300) 09/25/18 11:06 Total Protein 6.54 g/dL (6.3-8.2) 09/26/18 05:00 Albumin 4.06 g/dL (3.5-5.0) 09/26/18 05:00 Globulin 2.48 09/26/18 05:00 Albumin/Globulin Ratio 1.63 09/26/18 05:00 Procalcitonin < 0.05 ng/mL (<0.05) 09/25/18 11:06 Urine Color Yellow (YELLOW) 09/25/18 12:32 Urine Clarity Clear (CLEAR) 09/25/18 12:32 Urine pH 7.0 (5-9) 09/25/18 12:32 Ur Specific [place] 1.020 (1.005-1.030) 09/25/18 12:32 Urine Protein 1+ (NEGATIVE) 09/25/18 12:32 Urine Glucose (UA) Negative (NEGATIVE) 09/25/18 12:32 Urine Ketones Negative (NEGATIVE) 09/25/18 12:32 Urine Blood Negative (NEGATIVE) 09/25/18 12:32 Urine Nitrite Negative (NEGATIVE) 09/25/18 12:32 Urine Bilirubin Negative (NEGATIVE) 09/25/18 12:32 Urine Urobilinogen 0.2 (0.2) 09/25/18 12:32 Ur Leukocyte Esterase Negative (NEGATIVE) 09/25/18 12:32 Ur Squamous Epith Cells Not present (0-5) 09/25/18 12:32 Urine Mucus Trace (NOT PRESENT) 09/25/18 12:32 ABG slightly worse than admit. (1) COPD with acute exacerbation Status: Acute Code(s): J44.1 - CHRONIC OBSTRUCTIVE PULMONARY DISEASE W (ACUTE ) EXACERBATION SNOMED Code(s): 100395753 (2) Lumbosacral pain Status: Acute Code(s): M54.5 - LOW BACK PAIN SNOMED Code(s): 384054552 (3) Positive D dimer Status: Acute Code(s): R79.1 - ABNORMAL COAGULATION PROFILE SNOMED Code(s): 663412579 (4) Hypoxemia Status: Acute Code(s): R09.02 - HYPOXEMIA SNOMED Code(s): 474658860 (5) Polycythemia Status: Acute Code(s): D75.1 - SECONDARY POLYCYTHEMIA SNOMED Code(s): 497589656 Plan: COPD: Stable to slightly improved. HD #2. Abx Day #2 Doxy 100 IV BID. I noted steroids had not been initiated and I started prednisone 40mg today. I will give him Maintenance fluids 125ml/hour x 4 hours this am as he may be eating less for his VQ scan. He does not have to be NPO for that. Discussed overnight issues, he noted problems early in am and resp therapy helped/made this better. Alternating albuterol in between QID DUoneb. IV abx on board. Vapotherm on board. He noted he cannot wear his vest at this time. Mucinex is on board. Calmer breathing for 2-4 hours after morphine. This is reasonable for multiple avenues of his health. Opiate risks d/w patient. - Admit inpatient - IV doxy 100 BID - Tele - Vapotherm - CBC/CMP in am - ABG in am - Albuterol q 4 hours (between duonebs) - Duoneb QID - Continue mucinex - Reassess in am tomorrow - Prednisone 40mg daily - bring compression vest from home - Continue home meds as listed in orders. Elevated Blood Pressure: Stable. I will not add anything for now. He feels that morpine has helped, improved breathing has helped. We will continue to monitor. Telemetry. Weight stable. Lumbago w/ ?Sciatica on right: Still w/o red flags for history or exam. He feels it is better today than it was yesterday. Pain meds helping. No urinary issues, no saddle numbness, no stooling issues, So far no BM in hospital. R/B/ A to opiates d/w patient and family and they agree. - Morphine 2 q 6 hours to continue Elevated Ddimer: Lovenox 1mg/kg BID. VQ in am today. He has allergy to contrast dye. Hoping for negative scan. If equivocal/borderline may have contact [facility] vs radiology to discuss options for CT PE protocol w/ pretreatment. Renal function is okay. [place] score revised of 4 points: reviewed at admit moderate risk of PE 20-30% incidence Polycythemia: Stable. CBC looks okay, continue to monitor. Labs during hospital likely therapeutic. Former smoker: Continue tobacco free lifestyle Allergy to contrast Dye: Diet: Regular Code Status: DNR. Disposition: Reviewed last 24 hour data. Reviewed tele, am ABG interpreted, slightly worse, reviewed am labs, VQ to be completed this am. HD 2, Abx day 2 doxy. Steroids were not added, I made sure that these were on board as they decrease symptoms and reduce hospital stay and increase time to recovery when equivalent of 40mg prednisone PO utilized. I suspect another 48-72 hours hospital stay for patient doing well on vapotherm. He has improved clinically despite slightly worse ABG. Labs look stable. No other imaging. CBC/CMP remain stable. Rounding >35 minutes today. Personally reviewed ABG w/ interpretation, looked at CXR imaging personally, discussed case with ER physician 1:1 today.
[2018-09-26] MEDS: DOXY-100 100 MG in SODIUM CHLORIDE 100 ML IV SCH ×2 (09:32→20:50)
[2018-09-26] MEDS: CATAPRES PO SCH ×2 (09:33→20:51)
[2018-09-26] MEDS: XANAX PO SCH ×3 (09:33→20:51)
[2018-09-26] MEDS: COZAAR PO SCH (09:33)
[2018-09-26] MEDS: PREDNISONE PO SCH (09:33)
[2018-09-26] MEDS: MUCINEX PO SCH ×2 (09:33→20:50)
[2018-09-26] MEDS: LOVENOX SUBCUT SCH ×2 (09:34→20:51)
[2018-09-26] MEDS: SODIUM CHLORIDE 500 ML IV SCH ×2 (09:34→12:39)
--- NOTE | 2018-09-26 10:32 | NM ---
EXAM: Ventilation perfusion lung scan HISTORY: Chronic obstructive pulmonary disease. Extreme shortness of breath. Elevated D-dimer. COMPARISON: None of this type. CT 09/25/2018. PROCEDURE: Ventilation: The patient was allowed to inhale from a reservoir of 30.1 mCi of 99 technetium DTPA ae rosol. Subsequently anterior, posterior, lateral and anterior and posterior oblique images were obta ined. Perfusion: The patient was injected with 5.0 mCi of 99 technetium MAA intravenously after which ante rior, posterior, lateral and anterior and posterior oblique images were obtained. FINDINGS: The ventilation portion of the examination is extremely limited due to the patient's severe underlying lung disease. There is trapping of aerosol in central airways and limited distribution o f aerosol into the distal lungs particularly on the left. The perfusion images demonstrate a more un iform distribution of activity which again is greater on the right. There are regions of reduced per fusion some which are segmental or subsegmental which cannot be reliably matched to the ventilation e xamination due to the technically limited distribution of aerosol. IMPRESSION: 1. The examination is indeterminate and the presence of pulmonary embolus cannot be excluded due to the severe underlying lung disease and associated limited distribution of aerosol on the ventilation portion examination. Perfusion defects cannot be the reliably matched/compared with the ventilation as a result. 2. If there is strong reason to suspect pulmonary embolus, a CTA examination would be better suited to evaluating this patient.
[2018-09-26] MEDS: MOMETASONE FUROATE IH SCH ×2 (12:30→21:35)
[2018-09-26] MEDS: FLOMAX PO SCH (14:00)
[2018-09-26] MEDS: LEXAPRO PO SCH (14:00)
--- NOTE | 2018-09-26 15:37 | RS.PTINEVL ---
Subjective - Patient information Date of Evaluation: 09/26/18 Date of Arrival on Unit: 09/25/18 Admitted From:: Home Diagnosis: COPD exacerbation, lumbosacral pain Usual Living Arrangement: Alone Home Environment: House, Stairs (few), Rail Medical History: Hypertension, COPD, Arthritis Medical History Comments:: hypoxemia, Chronic kidney disease, polycythemia, DJD L spine, Surgical History: Cholecystectomy Medications: see chart Subjective Information/ Patient Comments:: pt states that he is hoping to continue his PT for his back to keep him from losing what he has gained. He states that the manual therapy was really helping. - Level of function Prior to this admission, the patient could do the following:: Independent Selfcare, Independent ADL's, Independent Ambulation Current Level of Function: Partially Dependent Current Equipment Used at Home: Oxygen Pain Assessement - Location LBP Description: Radiating, Aching Intensity: 4 Pain Behavior: Rubbing Site, Facial Grimacing Pain Aggravating Factors: Changing Position, Standing, Walking Pain Alleviating Factors: Heat, Medication, Exercise Interventions - Objective Patient Orientation: Person, Place, Time, Situation Current Interventions: IV's, Oxygen, Telemetry Observation: pt with significant muscle tightness B hamstring, piriformis Range of Motion - ROM Right Upper Extremity AROM: WFL's Left Upper Extremity AROM: WFL's Right Lower Extremity AROM: WFL's Left Lower Extremity AROM: WFL's Muscle Strength - Muscle Strength Right Upper Extremity Strength: Mild Weakness (grossly 4-/5) Left Upper Extremity Strength: Mild Weakness (grossly 4-/5) Right Lower Extremity Strength: Mild Weakness (hip flex 4-/5, knee flex/ext 4/5 , ankle DF/PF 4/5) Left Lower Extremity Strength: Mild Weakness (hip flex 4/5, knee flex/ext 4/5, ankle DF/PF 4/5) Sensation - Sensation Right Upper Extremity Sensation: Intact/Normal Left Upper Extremity Sensation: Intact/Normal Right Lower Extremity Sensation: Impaired (n/t RLE) Left Lower Extremity Sensation: Intact/Normal Palpation Palpation Findings: Tenderness, Muscle Guarding Comments:: pt tenderness to R SI area with muscle guarding Balance - Sitting Balance and Reactions Static Sitting Balance: Good Dynamic Sitting Balance: Good - Comments Balance Assessment Comments: standing balance n/t due to pt cannot amb due to vapotherm and MD ruling out PE Functional Mobility - Bed Mobility Rolling R/L: Supervision Scooting: Supervision Supine to Sit: CGA, Min Assist Sit to Supine: CGA - Transfers Comments:: sit to/from stand n/t due to r/o PE and vapotherm - Safety Awareness Safety Awareness: Good [place] INDEX SCORE: n/a Ambulation - Ambulation Ambulation Comments: n/t due to R/O PE, vapotherm Treatment time - Time with patient Length of Evaluation: 23 Total treatment time: 28 Patient Education - Education Patient Education: Activity Modification, Education of Plan of Care Teaching Recipient: Patient Teaching Methods: Discussion Comments: discussion regarding POC Assessment - Assessment Problem List:: Decreased level of function, Requires training/education, Decreased safety/Risk of falls, Weakness, Pain limits previous level of function Rehab Potential: Good Further Therapy Indicated?: Yes Candidate for Swing Bed for Therapy Services?: pt would need to be reassessed at a later date. Evaluation Complexity: HISTORY: Medium, EXAM OF BODY SYSTEMS: Medium, CLINICAL PRESENTATION: Medium, CLINICAL DECISION MAKING: Medium Short Term Goals GOAL #1: pt demonstrate independence with bed mobility Goal to be met by: 09/29/18 GOAL #2: Decrease pain lumbar spine < 4/10 Goal to be met by: 09/29/18 GOAL #3: Improved flexibility with B hamstrings Goal to be met by: 09/29/18 Timber Appraiser Goals GOAL #1: pt independent with HEP Goal to be met by: 10/02/18 GOAL #2: Decrease pain < 3/10 Goal to be met by: 10/02/18 GOAL #3: pt with decreased radicular pain in RLE Goal to be met by: 10/02/18 Plan Plan of Care: Therapeutic EX, Therapeutic Activity Modalities: Hot Pack, Cold Pack/Cryotherapy, Electrical Stimulation Frequency of Treatment: 1-2 X day, as tolerated Duration of Treatment: 1 Week Anticipated Discharge Destination: Home Treatment Diagnosis (ICD 10 Codes): LBP M54.5. Radicular pain into RLE Has the Physician been added for Co-signature?: Yes
[2018-09-26] MEDS: ASPIRIN EC PO SCH (20:50)
[2018-09-27] MEDS: DUONEB NEB SCH ×4 (04:45→23:55)
[2018-09-27] MEDS: PROTONIX PO SCH (05:34)
[2018-09-27] MEDS: SODIUM CHLORIDE 500 ML IV SCH ×4 (05:35→17:16)
[2018-09-27] MEDS: DOXY-100 100 MG in SODIUM CHLORIDE 100 ML IV SCH ×2 (08:52→20:24)
[2018-09-27] MEDS: LOVENOX SUBCUT SCH (08:52)
[2018-09-27] MEDS: ALBUTEROL 0.083% NEB NEB PRN ×4 (09:10→21:05)
[2018-09-27] MEDS: MUCINEX PO SCH ×2 (09:57→20:19)
[2018-09-27] MEDS: COZAAR PO SCH (09:57)
[2018-09-27] MEDS: PREDNISONE PO SCH (09:58)
[2018-09-27] MEDS: XANAX PO SCH ×3 (09:58→20:19)
[2018-09-27] MEDS: CATAPRES PO SCH ×2 (09:58→20:18)
[2018-09-27] MEDS: MOMETASONE FUROATE IH SCH ×2 (09:59→20:19)
--- NOTE | 2018-09-27 10:19 | CT ---
EXAM: CT angiogram of the chest with contrast HISTORY: Elevated D-dimer TECHNIQUE: Helical imaging of the chest was performed following the intravenous administration of co ntrast. 3 mm thin axial images and coronal and sagittal reconstructions and rotated 3-D reconstructi ons were provided for interpretation. Comparison 09/25/2018 CT scan of the chest. FINDINGS: No definite filling defects are identified within the branches of the pulmonary arteries. The central pulmonary arteries are normal. The heart is normal size. No mediastinal masses are see n. Emphysematous changes are seen throughout the lungs bilaterally. There are areas of scarring see n in the right and left lower lobes of the lungs. There is atherosclerotic calcification of the thor acic aorta. No lytic or blastic lesions are seen within the osseous structures. IMPRESSION: There is no acute pulmonary embolism. Diffuse bilateral pulmonary emphysema.
--- NOTE | 2018-09-27 10:39 | PCM.PROG ---
Subjective: 77 yo CM patient of DR. Gonazlez HD #3, Abx day #3/5 doxycycline, prednisone 40mg daily, duoneb QID, albuterol neb in between, on Vapotherm. He has been on therapeutic lovenox dosing 1mg/kg since admit secondary to elevated Ddimer, inconclusive VQ scan. He had listed allergy to IV contrast but then after lengthy w/u discussion with Krystal ARRINGTON DR. Kelley office, ARTI Garcia review of DR. Gonzalez notes, the patient has no reported allergy. He noted that he was told at one point that he had ESRD and that he would end up on dialysis if he had CT and he just simply did not want contrast. I noted need to evaluate for PE and CT PE w/ contrast was the only way left for us to do that. I have fluid hydrated him with 500ml of fluids at maintenance rate 4 hours before VQ yesterday and for CT PE protocol today. He was happy with this but it took his PCP office/ARTI Garcia to ultimately convince him to get the test done. I appreciate the assistance of ARTI Garcia with the patient. Family in room today include daughter in law Hillary, daughter Tyrell De La Fuente. Patient still on vaportherm, planning for CT PE protocol this am. Remains SOA, used the comprssion vest some yesterday. Pain remains 2-5/10 in back/right hip. BP has been up a little through this hospital stay. 145/82, 155/90, 141/88, 143/83, 143/80, 135/78 and this am 0500 179/85. Remains afebrile, Ow 92-93% on FIO2 28. His ABG continue to worsen. This am pH 7.335 midly down from yesterday 7.341. Po2 down from 73 to 71. Hc03 down to 19.5. He has had similar features daily for the past 2 days. Essentially unchanged anion gap met acid primary w/ appropriately compensated resp alkalosis and additional non gap met acid. He feels fine other than his inability to catch his breath. CBC stable WBC 6.21, hgb 14.4, plt 205. Chemistry stable sodium 134.7, K+ 4.65 and cr 0.99. Glucose up just a little 149.1. Alk phos low at 53.5. Pending CT PE protocol this am. Family notes despite ABG worsening he is much more talkative , more energy. He did meet with phys therapy. Reviewed Rosalva Hernandez note. She noted decreased level of function, will need training/education. Decreased safety/risks of falls. Weakness. Pain limits level of function. Plan is to re- eval in 24 hours, see what the CT shows and consider swing bed until further improvement noted. I offered Bipap to him, he said he liked the vapotherm better. Inpatient hospital stay: Day 3 Antibiotics: Doxy 100mg IV Day 3/ REVIEW OF SYMPTOMS: (Positives bolded) General: weight loss, fever, chills, night sweats, fatigue, appetite loss HEENT: blurry vision, eye pain, eye discharge, dry eyes, decreased vision, sore throat tinnitus, bloody nose, hearing loss, sinus pressure, ear pain/ pressure. Respiratory: shortness of breath, cough, hemoptysis, wheezing, pleurisy, Cardiovascular: chest pain, PND, palpitation, edema, orthopnea, syncope, swelling of extremities Gastro: Nausea, vomiting, diarrhea, hematemesis, abdominal pain, constipation Genito: hematuria, dysuria, glycosuria, hesitancy, frequency, incontinence Musckelo: Arthralgia (RIGHT HIP/BACK), myalgia, muscle weakness, joint swelling , NSAID use Skin: rash, pruritis, sores, nail changes, skin thickening, change in wart/mole , itching, rash, new lesions, pruritus, nail changes Neuro: Migraine, numbness, ataxia, tremor, vertigo, weakness, memory loss, Irritability, dizziness Endocrine: excessive thirst, polyuria, cold intolerance, heat intolerance, goiter Psychiatric: depression, anxiety, anti-depressants, alcohol abuse, drug abuse, insomnia, change in sleep pattern and mood changes Heme/lymph: easy bruising, bleeding gums, blood clots, swollen glands, lymphedema, Allergic/immune: allergic rhinitis, hay fever, hives Objective: Vital Signs - 24 hr 09/26/18 09/26/18 09/26/18 13:54 14:00 17:06 Temperature 97.6 F Pulse Rate 83 Respiratory 18 Rate Blood Pressure 143/80 H O2 Sat by Pulse 92 L 94 L 93 L Oximetry 09/26/18 09/26/18 09/26/18 20:00 21:33 22:00 Temperature 98.2 F Pulse Rate 84 Respiratory 22 22 Rate Blood Pressure 135/78 O2 Sat by Pulse 93 L 93 L Oximetry 09/27/18 09/27/18 09/27/18 02:00 05:10 06:00 Temperature 98.1 F Pulse Rate 93 H Respiratory 20 Rate Blood Pressure 179/85 H O2 Sat by Pulse 93 L 92 L 93 L Oximetry 09/27/18 09:51 Temperature Pulse Rate Respiratory Rate Blood Pressure O2 Sat by Pulse 93 L Oximetry Constitutional: Appearance-This am he still had no respiratory distress. Remained on vapotherm, nebs given and improving. Did have difficulty over night again. Appears Consistent with stated age. Orientation- Oriented x 3, alert Build and Nutrition-[normal, bmi 25] General- Patient is pleasant and cooperative with the interview and exam. Short of breath persists, speaks in fragmented sentences but still seems to be improving overall. Daughter, step daughter, bill in room today. ENMT: Hearing Assessment-normal to conversational speech. Nose and sinus- No sinus tenderness along frontal/maxillary region. External appearance normal and midline. Nares- bilateral quiet airflow, clear discharge. Nasal mucosa- No bleeding noted and no ulcerations observed. Boggy turbinates, erythematous. Lips - normal color, moist without cracks/lesions Oral Cavity/Palate- oral mucosa pink and moist. Tongue normal midline. Oropharynx- no pharyngeal erythema, Uvula midline. post nasal drip. No posterior exudate. Salivary glands- Non tender to palpation CHEST/LUNG: Inspection- symmetric chest wall no pectus deformity. Increased effort, accessory muscle use in abdomen, mild to moderate distress, Palpation- nontender sternum, ribline. No abnormal pulsations. Auscultation- Breath sounds diminished throughout all lung azul. tracheal sounds, bronchial sounds overlying sternum, Bronchovessicular sounds between scapulae posteriorly , vessicular breath sounds heard throughout periphery. Adventitious sounds- Scattered wheezes no rales, no e/o consolidation, scattered rhonchi. Coarse sounds throughout. Increased wheezing. Still no consolidation. no egophany. CARDIOVASCULAR: Carotid artery- normal, no bruits or abnormal pulsations. Jugular vein- no pulsations. Palpation/Percussion- Normal PMI, no palpable thrill Auscultation- Regular rate and rhythm. No murmur noted in sitting, supine positions. Extremities- no digital clubbing, cyanosis, edema, increased warmth. ABDOMEN: Inspection- normal and no visible pulsations. Normal contour. Auscultation- Bowel sounds normal, no abdominal bruits. Palpation/Percussion- soft, non-tender, no rebound tenderness, no rigidity (guarding), no jar tenderness, no masses. Liver-no hepatomegaly, Spleen no splenomegaly, Hernias - none. Rectal not examined. Peripheral Vascular: Lower extremity- Normal temperature with pink nailbeds and no ulcerations. DP pulses 2+ bilaterally. Pedal hair intact. Normal capillary refill. Edema- No edema. Musculoskeletal: Generalized-No generalized swelling or edema of extremities, no digital clubbing or cyanosis, neurovascularly intact all four extremities. Spine/Ribs- No deformities, masses or tenderness, no known fractures, normal strength, Normal ROM. Paraspinal tenderness lumbar. CRISTEL + on right. Piriformis test + on right. SLR negative bilaterally. Hallux strength 5/5, dorsiflexion of feet 5/5. Normal reflexes, normal str. Neurological: General- Moves all 4 extremities symmetrically. Symmetrical face and body posture. Cranial nerves- individually evaluated II-XII and intact. PERRLA, Normal EOMI, visual/special senses appear intact, Face is symmetrical and normal sensation/movement, normal tongue, normal strength/posture of neck musculature. Neuropsych: Oriented- Person, place, time. (AAOx3), Mood/affect- normal and congruent. Able to articulate well. Speech-Normal speech, normal rate, normal tone, normal use of language, volume and coherence. Thought content- normal with ability to perform basic computations and apply abstract thought/reason. Associations- intact, no SI/HI, no hallucinations, delusions, obsessions. Lymphatic: Head/Neck- normal size and non tender to palpation. Laboratory Last Values WBC 6.21 K/ul (4.2-10.2) 09/27/18 04:45 RBC 4.67 10^6/ul (4.70-6.10) L 09/27/18 04:45 Hgb 14.4 g/dl (14.0-18.0) 09/27/18 04:45 Hct 43.4 % (42.0-52.0) 09/27/18 04:45 MCV 92.9 fl (80.0-94.0) 09/27/18 04:45 MCH 30.8 pg (27.0-31.0) 09/27/18 04:45 MCHC 33.2 (31.8-35.4) 09/27/18 04:45 RDW Coeff of Bhaskar 14.5 % (11.6-14.8) 09/27/18 04:45 Plt Count 205 10^3/uL (140-440) 09/27/18 04:45 Immature Gran % (Auto) 0.5 % (0.0-5.0) 09/27/18 04:45 Neut % (Auto) 82.6 09/27/18 04:45 Lymph % (Auto) 12.7 (10.0-50.0) 09/27/18 04:45 [place] % (Auto) 4.0 (0-10) 09/27/18 04:45 Eos % (Auto) 0.0 % (0.0-7.0) 09/27/18 04:45 Baso % (Auto) 0.2 % (0.0-3.0) 09/27/18 04:45 Immature Gran # (Auto) 0.0 (0.0-1.0) 09/27/18 04:45 Neut # (Auto) 5.1 K/ul (2.0-6.9) 09/27/18 04:45 Lymph # (Auto) 0.8 K/uL (0.60-3.4) 09/27/18 04:45 [place] # (Auto) 0.3 K/uL (0.4-2.0) L 09/27/18 04:45 Eos # (Auto) 0.0 K/ul (0.0-0.7) 09/27/18 04:45 Baso # (Auto) 0.0 K/uL (0-0.2) 09/27/18 04:45 D-Dimer (Manual) 639.96 ng/mL (<500) 09/25/18 11:06 Puncture Site Lrad 09/27/18 05:55 O2 Saturation 93.0 % (95-100) L 09/27/18 05:55 ABG pH 7.335 (7.35-7.45) L 09/27/18 05:55 ABG pCO2 36.5 mmHg (35-45) 09/27/18 05:55 ABG pO2 71.0 mmHg (85-100) L 09/27/18 05:55 ABG HCO3 19.5 (22.0-26.0) L 09/27/18 05:55 ABG Total CO2 21 (22.0-28.0) L 09/27/18 05:55 ABG Base Excess -6 (-2.0-2.0) L 09/27/18 05:55 Albino Test + 09/27/18 05:55 O2 Delivery Device Vapotherm 09/27/18 05:55 Oxygen Liter Flow 40.00 09/27/18 05:55 FiO2 % 28.0 % 09/27/18 05:55 Sodium 134.7 mmol/L (134.5-145) 09/27/18 04:45 Potassium 4.64 mmol/L (3.5-5.1) 09/27/18 04:45 Chloride 100.7 mmol/L (98-107) 09/27/18 04:45 Carbon Dioxide 22.2 mmol/L (22-30.0) 09/27/18 04:45 Anion Gap 16.44 09/27/18 04:45 BUN 18.9 mg/dL (9-20) 09/27/18 04:45 Creatinine 0.99 mg/dL (0.60-1.10) 09/27/18 04:45 Estimated GFR (MDRD) 73.00 mL/min 09/27/18 04:45 BUN/Creatinine Ratio 19.09 09/27/18 04:45 Glucose 149.1 mg/dL (74-106) H D 09/27/18 04:45 Lactic Acid 0.76 mmol/L (0.7-2.1) 09/25/18 11:06 Calcium 8.78 mg/dL (8.4-10.2) 09/27/18 04:45 Magnesium 2.07 mg/dL (1.6-2.3) 09/25/18 11:06 Total Bilirubin 0.52 mg/dL (0.2-1.3) 09/27/18 04:45 AST 22.8 U/L (17-59) 09/27/18 04:45 ALT 18.0 U/L (0-50) 09/27/18 04:45 Alkaline Phosphatase 53.5 U/L (56-119) L 09/27/18 04:45 NT-Pro-B Natriuret Pep 67.400 pg/mL (0-300) 09/25/18 11:06 Total Protein 6.51 g/dL (6.3-8.2) 09/27/18 04:45 Albumin 3.90 g/dL (3.5-5.0) 09/27/18 04:45 Globulin 2.61 09/27/18 04:45 Albumin/Globulin Ratio 1.49 09/27/18 04:45 Procalcitonin < 0.05 ng/mL (<0.05) 09/25/18 11:06 Urine Color Yellow (YELLOW) 09/25/18 12:32 Urine Clarity Clear (CLEAR) 09/25/18 12:32 Urine pH 7.0 (5-9) 09/25/18 12:32 Ur Specific [place] 1.020 (1.005-1.030) 09/25/18 12:32 Urine Protein 1+ (NEGATIVE) 09/25/18 12:32 Urine Glucose (UA) Negative (NEGATIVE) 09/25/18 12:32 Urine Ketones Negative (NEGATIVE) 09/25/18 12:32 Urine Blood Negative (NEGATIVE) 09/25/18 12:32 Urine Nitrite Negative (NEGATIVE) 09/25/18 12:32 Urine Bilirubin Negative (NEGATIVE) 09/25/18 12:32 Urine Urobilinogen 0.2 (0.2) 09/25/18 12:32 Ur Leukocyte Esterase Negative (NEGATIVE) 09/25/18 12:32 Ur Squamous Epith Cells Not present (0-5) 09/25/18 12:32 Urine Mucus Trace (NOT PRESENT) 09/25/18 12:32 ABG: anion gap met acid primary w/ appropriately compensated resp alkalosis and additional non gap met acid (1) COPD with acute exacerbation Status: Acute Code(s): J44.1 - CHRONIC OBSTRUCTIVE PULMONARY DISEASE W (ACUTE ) EXACERBATION SNOMED Code(s): 128364638 (2) Lumbosacral pain Status: Acute Code(s): M54.5 - LOW BACK PAIN SNOMED Code(s): 863516963 (3) Positive D dimer Status: Acute Code(s): R79.1 - ABNORMAL COAGULATION PROFILE SNOMED Code(s): 873678177 (4) Hypoxemia Status: Acute Code(s): R09.02 - HYPOXEMIA SNOMED Code(s): 056832905 (5) Polycythemia Status: Acute Code(s): D75.1 - SECONDARY POLYCYTHEMIA SNOMED Code(s): 478473310 Plan: COPD: slightly improved/Stable. HD #3. Abx Day #3/5 Doxy 100 IV BID. He is on steroids prednisone 40mg daily. He is improving, wearing vest. Getting neb tx. Phys therapy noted he would benefit from rehab. I believe short stay in TCU would benefit patient greatly. Family in room, discussion today about the plan. Today we will check PE protocol CT. Reduce to the lovenox to 40 if negative, discussed NOAC if +. They agreed with this plan. He feels better, ABG still decreasing and unknown why. No other source of infection known. He feels fine other than SOA. I again gave fluids 125ml/hour x 4 hours this am for his PE CT scan. He does have to be NPO for that. Discussed overnight issues, he noted problems last night and early in am and resp therapy helped/ made this better. Alternating albuterol in between QID DUoneb. IV abx on board. Vapotherm on board. Mucinex is on board. Still with calmer breathing for 2-4 hours after morphine. This is reasonable for multiple avenues of his health. Opiate risks d/w patient and family again. Declined bipap, he likes vapotherm better. - Admit inpatient continue - IV doxy 100 BID Day 3/ - Tele to continue (reviewed and stable) - Vapotherm to continue. Offered bipap, declined as he felt vaportherm> - CBC/CMP in am tomorrow - ABG in am again tomorrow - Albuterol q 4 hours (between duonebs) - Duoneb QID - Continue mucinex - Reassess in am tomorrow - Prednisone 40mg daily to continue - Continue home meds as listed in orders. Elevated Blood Pressure: I will continue to monitor today. If remainine elevated, I may increase his meds. We will continue to monitor. Telemetry. Weight stable. Lumbago w/ ?Sciatica on right: Still w/o red flags for history or exam. He feels it is better today than it was yesterday. Pain meds helping. No urinary issues, no saddle numbness, no stooling issues, So far no BM in hospital. R/B/ A to opiates d/w patient and family and they agree. - Morphine 2 q 6 hours to continue Elevated Ddimer: Lovenox 1mg/kg BID. VQ didnot r/o. CT PE today. Polycythemia: Stable. CBC looks okay, continue to monitor. Labs during hospital likely therapeutic. Former smoker: Continue tobacco free lifestyle Allergy to contrast Dye: This was not accurate. This will be deleted from the allergy list. Diet: Regular Code Status: DNR. DVT Prophy: Tx dose lovenox for now, will change if PE protocol CT negative. Disposition: Reviewed last 24 hour data. Reviewed tele, am ABG interpreted personally, again slightly worse, reviewed am labs, VQ discussed with family. PE protocol CT to be done today. HD 3, Abx day 3/5 doxy. Steroids added yesterday. Clinically improving, ABG worsening. Remainder of labs/vitals stable. I suspect another 48 hours hospital stay and then consider TCU. Phys therapy note reviewed. I appreciate the therapy input. Rounding >35 minutes today. Discussed care with family today.
[2018-09-27] MEDS ORDERED: PREDNISONE PO STA (11:24)
[2018-09-27] MEDS: LEXAPRO PO SCH (14:22)
[2018-09-27] MEDS: FLOMAX PO SCH (14:22)
[2018-09-27] MEDS ORDERED: NORVASC PO STA (19:38)
[2018-09-27] MEDS ORDERED: NORVASC ONE (19:41)
[2018-09-27] MEDS: ASPIRIN EC PO SCH (20:18)
[2018-09-27] MEDS ORDERED: CATAPRES PO STA (21:35)
[2018-09-27] MEDS ORDERED: MIRALAX PO PRN (21:47)
[2018-09-28] MEDS: DUONEB NEB SCH (04:25)
[2018-09-28 04:53] VITALS: BP 125/78; TEMP 97.9
[2018-09-28] MEDS: PROTONIX PO SCH (05:35)
[2018-09-28] MEDS ORDERED: PREDNISONE PO SCH (08:00)
[2018-09-28] MEDS: CATAPRES PO SCH (08:27)
[2018-09-28] MEDS: COZAAR PO SCH (08:27)
[2018-09-28] MEDS: XANAX PO SCH (08:28)
[2018-09-28] MEDS: DOXY-100 100 MG in SODIUM CHLORIDE 100 ML IV SCH ×2 (08:28→10:11)
[2018-09-28] MEDS: MUCINEX PO SCH (08:28)
[2018-09-28] MEDS: MOMETASONE FUROATE IH SCH (08:29)
[2018-09-28] MEDS ORDERED: LOVENOX SUBCUT SCH ×2 (09:00)
--- NOTE | 2018-09-28 09:30 | PCM.PROG ---
Subjective: 77 [address] CM patient of DR. Gonzlaez HD #4, Abx day #06/13 doxycycline, prednisone 40mg daily, duoneb QID, albuterol neb in between, on Vapotherm. He has been on therapeutic lovenox dosing 1mg/kg since admit secondary to elevated Ddimer, inconclusive VQ scan and had a negative CT PE protocol chest yesterday. The lovenox was decreased from 1mg/kg BID to 40mg subcut daily as of today. His ABG worsened daily. HIs pH is better today up from 7.335 to 7.349. HOwever O2 saturation was 85 today, hc03 improving to 20.6 and po2 53. I did not reorder CBC/CMP this am as his CBC was fine from 09/25-09/27. NO anemia hgb 14.4 yesterday. Negative WBC elevation. Mild glucose elevation yesterday otherwise normal CMP as well. NO additional imaging. Patient is still struggling to breath comfortably. He is still getting IV doxycycline and will finish a total of 5 days. Today is Day 06/13. O2 saturation yesterday 93-95 on vapotherm. BP 179/85, 165/81, 164/78, 160/72 yesterday and I did give him #1 norvasc 5 and another clonidine 0.1 last night and his BP is 125/78 this am. Remote pulse ox only as of 09/27/18. NSR throughout his prior 2 days. HR is 74-80 most of the day yesterday was 93 in the am yesterday morning. Blood cultures negative x 48 hours. I did increase him to prednisone 60mg total daily from 40mg daily as of yesterday. Pt slept well last night. Consuming 100% meals. He has had 2 BM during hospital stay. Good uout in urinal with 1900 ml out 09/26/18, 1975 out and already 600 out from today. Patient met with phys therapy and they feel he would benefit from therapeutic intervention. My plan will be to place into TCU for physical therapy, completion of IV abx. I will place into TCU today. Checked with nursing and with Respiratory therapy. The above abg was after BM and after patient was off vapotherm. That is likely his baseline status. Suspect end stage or nearing end stage COPD. He will be d/c to TCU today. He lost his IV. I will change doxy to PO. Inpatient hospital stay: Day 4 Antibiotics: Doxy 100mg IV Day 06/13 ROS unchanged. Objective: Vital Signs - 24 hr 09/27/18 09/27/18 09/27/18 13:35 14:00 17:18 Temperature 97.6 F Pulse Rate 74 Respiratory 22 Rate Blood Pressure 165/81 H O2 Sat by Pulse 95 94 L 94 L Oximetry 09/27/18 09/27/18 09/27/18 21:08 22:00 23:48 Temperature 98.2 F Pulse Rate 77 Respiratory 20 Rate Blood Pressure 164/78 H 160/72 H O2 Sat by Pulse 93 L 93 L 92 L Oximetry 09/28/18 09/28/18 09/28/18 02:00 04:51 05:52 Temperature 97.9 F Pulse Rate 80 Respiratory 20 Rate Blood Pressure 125/78 O2 Sat by Pulse 93 L 95 93 L Oximetry 09/28/18 07:45 Temperature Pulse Rate Respiratory 22 Rate Blood Pressure O2 Sat by Pulse Oximetry Constitutional: Appearance-This am he talked in full sentences, still coughing up brown phlegm. Breathing better despite ABG. Orientation- Oriented x 3, alert Build and Nutrition-[normal, bmi 25] General- Patient is pleasant and cooperative with the interview and exam. Short of breath persists, speaks in fragmented sentences but still seems to be improving overall. Daughter, step daughter, bill in room today. ENMT: Hearing Assessment-normal to conversational speech. Nose and sinus- No sinus tenderness along frontal/maxillary region. External appearance normal and midline. Nares- bilateral quiet airflow, clear discharge. Nasal mucosa- No bleeding noted and no ulcerations observed. Boggy turbinates, erythematous. Lips - normal color, moist without cracks/lesions Oral Cavity/Palate- oral mucosa pink and moist. Tongue normal midline. Oropharynx- no pharyngeal erythema, Uvula midline. post nasal drip. No posterior exudate. Salivary glands- Non tender to palpation CHEST/LUNG: Inspection- symmetric chest wall no pectus deformity. Increased effort, accessory muscle use in abdomen, mild to moderate distress, Palpation- nontender sternum, ribline. No abnormal pulsations. Auscultation- Breath sounds diminished throughout all lung azul. tracheal sounds, bronchial sounds overlying sternum, Bronchovessicular sounds between scapulae posteriorly , vessicular breath sounds heard throughout periphery. Adventitious sounds- Scattered wheezes no rales, no e/o consolidation, scattered rhonchi. Coarse sounds throughout. Increased wheezing. Still no consolidation. no egophany. CARDIOVASCULAR: Carotid artery- normal, no bruits or abnormal pulsations. Jugular vein- no pulsations. Palpation/Percussion- Normal PMI, no palpable thrill Auscultation- Regular rate and rhythm. No murmur noted in sitting, supine positions. Extremities- no digital clubbing, cyanosis, edema, increased warmth. ABDOMEN: Inspection- normal and no visible pulsations. Normal contour. Auscultation- Bowel sounds normal, no abdominal bruits. Palpation/Percussion- soft, non-tender, no rebound tenderness, no rigidity (guarding), no jar tenderness, no masses. Liver-no hepatomegaly, Spleen no splenomegaly, Hernias - none. Rectal not examined. Peripheral Vascular: Lower extremity- Normal temperature with pink nailbeds and no ulcerations. DP pulses 2+ bilaterally. Pedal hair intact. Normal capillary refill. Edema- No edema. Musculoskeletal: Generalized-No generalized swelling or edema of extremities, no digital clubbing or cyanosis, neurovascularly intact all four extremities. Spine/Ribs- No deformities, masses or tenderness, no known fractures, normal strength, Normal ROM. Paraspinal tenderness lumbar. CRISTEL neg on right today. SLR negative bilaterally. Hallux strength 5/5, dorsiflexion of feet 5/5. Normal reflexes, normal str. Neurological: General- Moves all 4 extremities symmetrically. Symmetrical face and body posture. Cranial nerves- individually evaluated II-XII and intact. PERRLA, Normal EOMI, visual/special senses appear intact, Face is symmetrical and normal sensation/movement, normal tongue, normal strength/posture of neck musculature. Neuropsych: Oriented- Person, place, time. (AAOx3), Mood/affect- normal and congruent. Able to articulate well. Speech-Normal speech, normal rate, normal tone, normal use of language, volume and coherence. Thought content- normal with ability to perform basic computations and apply abstract thought/reason. Associations- intact, no SI/HI, no hallucinations, delusions, obsessions. Lymphatic: Head/Neck- normal size and non tender to palpation. Laboratory Results - last 24 hr 09/28/18 07:06 Puncture Site R rad O2 Saturation 85.0 L ABG pH 7.349 L ABG pCO2 37.4 ABG pO2 53.0 L* ABG HCO3 20.6 L ABG Total CO2 22 ABG Base Excess -5 L Albino Test + O2 Delivery Device Vapotherm FiO2 % 28.0 (1) COPD with acute exacerbation Status: Acute Code(s): J44.1 - CHRONIC OBSTRUCTIVE PULMONARY DISEASE W (ACUTE ) EXACERBATION SNOMED Code(s): 603359462 (2) Lumbosacral pain Status: Acute Code(s): M54.5 - LOW BACK PAIN SNOMED Code(s): 008654271 (3) Positive D dimer Status: Acute Code(s): R79.1 - ABNORMAL COAGULATION PROFILE SNOMED Code(s): 565271368 (4) Hypoxemia Status: Acute Code(s): R09.02 - HYPOXEMIA SNOMED Code(s): 069267429 (5) Polycythemia Status: Acute Code(s): D75.1 - SECONDARY POLYCYTHEMIA SNOMED Code(s): 967262699 Plan: COPD: slightly improved/Stable. HD #4. Abx Day #4/5 Doxy 100 changed to oral from IV BID. Steroids prednisone 60mg to continue another 3-5 days. We will transition him to TCU today. - D/C patient to TCU. Generalized weakness, hip pain, short term rehab, finish abx. - IV doxy 100 BID completed 3 days. He will complete remainder of abx with oral. - Pulse ox only Tele to continue - Vapotherm to continue. Offered bipap, declined as he felt vaportherm better - Albuterol q 4 hours (between duonebs) - Duoneb QID - Continue mucinex - Prednisone 60mg daily to continue - Continue home meds as listed in orders. Elevated Blood Pressure: Added norvasc. Continue losartan and clonidine 0.2BID. . Lumbago w/ ?Sciatica on right: Still w/o red flags for history or exam. He feels it is better today than it was yesterday. Pain meds helping. No urinary issues, no saddle numbness, no stooling issues, So far no BM in hospital. R/B/ A to opiates d/w patient and family and they agree. - Morphine 2 q 6 hours to continue - Phys therapy x 1 week should be beneficial in controlled environment to work on breathing as well. Elevated Ddimer: Negative PE protocol CT. No E/o PE or DVT. Polycythemia: Stable. Former smoker: Continue tobacco free lifestyle Allergy to contrast Dye: This was not accurate. This will be deleted from the allergy list. Diet: Regular Code Status: DNR. DVT Prophy: Tx dose lovenox for now, will change if PE protocol CT negative. Disposition: D/C to TCU today. Rounding and then D/C >30 minutes today.
--- NOTE | 2018-09-28 10:16 | PCM.DC ---
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 Following with pulm. Oxygen dependent Polycythemia (Chronic): Stable Positive D dimer (Acute): Equivocal VQ, Negative PE Protocol CT Hypoxemia (Acute on chronic): Improving. Lumbosacral pain (Acute): Stable, phys therapy helping Radicular pain of right lower extremity (Acute)/Right hip pain (Acute): Stable , phys therapy helping Sacroiliac joint dysfunction of right side (Acute): Stable, phys therapy helping Chronic: History of CKD 3 CAD w/ stent BERNY GERD DJD LSP Pulmonary nodules followed by DR. Morales Cataract extraction bilateral 2014 Cholecystectomy Essential HTN Echo 02/2018 73% LVEF Admission date 09/25/18 Dr. Small Discharge Date 09/28/18 Dr. Small Discharge Location: TCU (1) COPD with acute exacerbation Status: Acute Code(s): J44.1 - CHRONIC OBSTRUCTIVE PULMONARY DISEASE W (ACUTE ) EXACERBATION SNOMED Code(s): 372268869 (2) Lumbosacral pain Status: Acute Code(s): M54.5 - LOW BACK PAIN SNOMED Code(s): 373889842 (3) Positive D dimer Status: Acute Code(s): R79.1 - ABNORMAL COAGULATION PROFILE SNOMED Code(s): 459394056 (4) Hypoxemia Status: Acute Code(s): R09.02 - HYPOXEMIA SNOMED Code(s): 362479224 (5) Polycythemia Status: Acute Code(s): D75.1 - SECONDARY POLYCYTHEMIA SNOMED Code(s): 924348992 (6) Generalized weakness Status: Acute Code(s): R53.1 - WEAKNESS SNOMED Code(s): 05055297 Reason for Hospitalization: COPD exacerbation, Respiratory failure, hypoxia, Generalized weakness, right hip /lumbosacral pain Prognosis at Discharge: Guarded. He has improved some but I am concerned about End stage COPD. He is DNR but I fear that he is worsening with time. Condition at Discharge: Improved from admit. We will d/c to TCU for further phys therapy for his back, complete abx (changed to oral after he lost IV). Medications at Discharge: Ambulatory Orders Medication Instructions Recorded Aspirin [Aspirin EC] 81 mg PO BEDTIME 04/23/14 Escitalopram Oxalate [Lexapro] 10 mg PO 1400 03/09/16 Tamsulosin HCl [Flomax] 0.4 mg PO 1400 12/25/16 Losartan Potassium 100 mg PO DAILY 03/10/17 Acyclovir 400 mg PO DAILY 02/07/18 Albuterol Sulfate [Ventolin Hfa] 2 puff IH Q4-6H PRN 02/07/18 Pantoprazole Sodium [Protonix] 40 mg PO DAILY 02/07/18 Tiotropium Br/Olodaterol HCl 4 gm IH DAILY 02/07/18 [Stiolto Respimat Inhal Beecher] Alprazolam [Xanax] 0.5 mg PO TID 02/08/18 Clonidine HCl [Catapres] 0.2 mg PO BID #60 tablet 02/20/18 Guaifenesin [Mucinex] 1,200 mg PO BID PRN 09/06/18 Albuterol Sulfate 0.083% Neb 1 vial NEB BID 09/25/18 [Albuterol 0.083% Neb] Mometasone Furoate [Asmanex Hfa] 2 puff IH BID 09/25/18 Doxycycline 100 BID PO to complete total of 5 day course. Prednisone 60mg daily to complete total of 10 day course. Added Norvasc 5mg daily to keep BP at goal. HOme meds continued, no d/c of normal home meds. Lab/Diagnostics: Laboratory Last Values WBC 6.21 K/ul (4.2-10.2) 09/27/18 04:45 RBC 4.67 10^6/ul (4.70-6.10) L 09/27/18 04:45 Hgb 14.4 g/dl (14.0-18.0) 09/27/18 04:45 Hct 43.4 % (42.0-52.0) 09/27/18 04:45 MCV 92.9 fl (80.0-94.0) 09/27/18 04:45 MCH 30.8 pg (27.0-31.0) 09/27/18 04:45 MCHC 33.2 (31.8-35.4) 09/27/18 04:45 RDW Coeff of Bhaskar 14.5 % (11.6-14.8) 09/27/18 04:45 Plt Count 205 10^3/uL (140-440) 09/27/18 04:45 Immature Gran % (Auto) 0.5 % (0.0-5.0) 09/27/18 04:45 Neut % (Auto) 82.6 09/27/18 04:45 Lymph % (Auto) 12.7 (10.0-50.0) 09/27/18 04:45 [place] % (Auto) 4.0 (0-10) 09/27/18 04:45 Eos % (Auto) 0.0 % (0.0-7.0) 09/27/18 04:45 Baso % (Auto) 0.2 % (0.0-3.0) 09/27/18 04:45 Immature Gran # (Auto) 0.0 (0.0-1.0) 09/27/18 04:45 Neut # (Auto) 5.1 K/ul (2.0-6.9) 09/27/18 04:45 Lymph # (Auto) 0.8 K/uL (0.60-3.4) 09/27/18 04:45 [place] # (Auto) 0.3 K/uL (0.4-2.0) L 09/27/18 04:45 Eos # (Auto) 0.0 K/ul (0.0-0.7) 09/27/18 04:45 Baso # (Auto) 0.0 K/uL (0-0.2) 09/27/18 04:45 D-Dimer (Manual) 639.96 ng/mL (<500) 09/25/18 11:06 Puncture Site R rad 09/28/18 07:06 O2 Saturation 85.0 % (95-100) L 09/28/18 07:06 ABG pH 7.349 (7.35-7.45) L 09/28/18 07:06 ABG pCO2 37.4 mmHg (35-45) 09/28/18 07:06 ABG pO2 53.0 mmHg (85-100) L* 09/28/18 07:06 ABG HCO3 20.6 (22.0-26.0) L 09/28/18 07:06 ABG Total CO2 22 (22.0-28.0) 09/28/18 07:06 ABG Base Excess -5 (-2.0-2.0) L 09/28/18 07:06 Albino Test + 09/28/18 07:06 O2 Delivery Device Vapotherm 09/28/18 07:06 Oxygen Liter Flow 40.00 09/27/18 05:55 FiO2 % 28.0 % 09/28/18 07:06 Sodium 134.7 mmol/L (134.5-145) 09/27/18 04:45 Potassium 4.64 mmol/L (3.5-5.1) 09/27/18 04:45 Chloride 100.7 mmol/L (98-107) 09/27/18 04:45 Carbon Dioxide 22.2 mmol/L (22-30.0) 09/27/18 04:45 Anion Gap 16.44 09/27/18 04:45 BUN 18.9 mg/dL (9-20) 09/27/18 04:45 Creatinine 0.99 mg/dL (0.60-1.10) 09/27/18 04:45 Estimated GFR (MDRD) 73.00 mL/min 09/27/18 04:45 BUN/Creatinine Ratio 19.09 09/27/18 04:45 Glucose 149.1 mg/dL (74-106) H D 09/27/18 04:45 Lactic Acid 0.76 mmol/L (0.7-2.1) 09/25/18 11:06 Calcium 8.78 mg/dL (8.4-10.2) 09/27/18 04:45 Magnesium 2.07 mg/dL (1.6-2.3) 09/25/18 11:06 Total Bilirubin 0.52 mg/dL (0.2-1.3) 09/27/18 04:45 AST 22.8 U/L (17-59) 09/27/18 04:45 ALT 18.0 U/L (0-50) 09/27/18 04:45 Alkaline Phosphatase 53.5 U/L (56-119) L 09/27/18 04:45 NT-Pro-B Natriuret Pep 67.400 pg/mL (0-300) 09/25/18 11:06 Total Protein 6.51 g/dL (6.3-8.2) 09/27/18 04:45 Albumin 3.90 g/dL (3.5-5.0) 09/27/18 04:45 Globulin 2.61 09/27/18 04:45 Albumin/Globulin Ratio 1.49 09/27/18 04:45 Procalcitonin < 0.05 ng/mL (<0.05) 09/25/18 11:06 Urine Color Yellow (YELLOW) 09/25/18 12:32 Urine Clarity Clear (CLEAR) 09/25/18 12:32 Urine pH 7.0 (5-9) 09/25/18 12:32 Ur Specific [place] 1.020 (1.005-1.030) 09/25/18 12:32 Urine Protein 1+ (NEGATIVE) 09/25/18 12:32 Urine Glucose (UA) Negative (NEGATIVE) 09/25/18 12:32 Urine Ketones Negative (NEGATIVE) 09/25/18 12:32 Urine Blood Negative (NEGATIVE) 09/25/18 12:32 Urine Nitrite Negative (NEGATIVE) 09/25/18 12:32 Urine Bilirubin Negative (NEGATIVE) 09/25/18 12:32 Urine Urobilinogen 0.2 (0.2) 09/25/18 12:32 Ur Leukocyte Esterase Negative (NEGATIVE) 09/25/18 12:32 Ur Squamous Epith Cells Not present (0-5) 09/25/18 12:32 Urine Mucus Trace (NOT PRESENT) 09/25/18 12:32 ABG: ABG: anion gap met acid primary w/ appropriately compensated resp alkalosis and additional non gap met acid ABG Sep 25Sep 26Sep 27Sep 28 02 sat 97 96 93 93 85 pH 7.382 7.392 7.341 7.335 7.349 pc02 38.2 36.4 38.5 36.5 37.4 po2 93 83 73 71 53 hco3 22.7 22.1 20.8 19.5 20.6 total co2 24 23 22 21 22 albino test + + + + + liter flow 2 40 FIO2 28 28 28 28 NC Vapotherm Vapotherm Vapotherm Trends: H/H Trends 09/25/18 09/26/18 09/27/18 Range/Units 11:00 05:00 04:45 Hgb 15.5 15.1 14.4 (14.0-18.0) g/dl Hct 46.4 46.6 43.4 (42.0-52.0) % WBC Trends 09/25/18 09/26/18 09/27/18 Range/Units 11:00 05:00 04:45 WBC 7.46 7.65 6.21 (4.2-10.2) K/ul Imagin09/27/18: CT PE protocol negative for PE. Diffuse bilateral pulmonary emphysema. 09/26/18: VQ lung scan. Indeterminate. 09/25/18: Chest ct w/o contrast. No acute process. CAD, old granulomatous disease. No significant changes from previous studies. 09/25/18: CXR emphysema and atelectasis. Microbiology: Sputum culture heavy homero. BC negative 48 hours Group A strep negative. Education Provided to Patient and Family: COPD and END STAGE DISEASE NUTRITION MEDICATIONS: Existing and new NEBULIZER TREATMENTS LEG ELEVATION APPOINTMENTS with DR. Gonzalez in 1 week after d/c. ACTIVITY fall precaution. USE OF STEROIDS AND RISKS ASSOCIATED WITH USE Follow-ups: D/C today to the TCU. Plan 1 week f/u with Dr. Gonzalez after d/c. Disposition: TSF OTHER Hospital Course: 77 yo CM patient of Dr. Gonzalez. presented to ED 09/25/18 at 10:20 am as a walk-in with SOA, chest congestion x 3 days, respiratory distress, hypoxia, chronic O2 dependent COPD. Chronic lung disease worsening per patient, CAD, chronic lung disease. CV status was stable. Normally in pulmonary rehab as outpatient. Noted to ED provider that his sx had progressively worsened since saturday/saturday and he had increased CANO, Dypsnea at rest, Coughing worsening, mucus productions worsening, suggesting 3/3 cardinal features of a COPD exacerbation. This was similar to 02/[address] Gonzalez. [place] poorly, O2 dropped from 93-94% into the low 80's at home. Normally on 2 L Oxygen. He felt congested, prominent mucus, white colored sputum, sputum trapping, SOA. In ER he was on 4L NC and exam showed marked wheezing/rhonchi and discomfort/ respiratory distress. Vitals in the ER reviewed and temp afebrile 97.4, pulse good at 87, RR reasonable at 20 and BP mildly elevated at 145/82 and pulse ox 87 %. Repeat vitals 11:28 pulse ox of 95%. Based on vitals, he did not meet SIRS criteria or suggested Sepsis. CXR was completed in ER and suggested subsegmental atelectasis and emphysema. He has had several events of COPD. Last hospitalization appears to have been 02/13/18 and it appears that he has been in cardiac rehab regularly since that point. Holter ordered/completed rate 47-150 avg 70, infequent pvc and rare pac, no ST/T changes, blank activity log for the 24 hour holter. 2D echo was completed 08/11/18. Enlarged left atrial and right Ventricular cavities. Wall motion normal, pericardium normal. LVH w/ enlarged atiral cavity. Normal contractility. 55% EF. PFT were done by Dr. Gonzalez. Looking over data, FEV1/FVC of 41 is low FVC 88% and FEV1 50 % suggests that this is obstructive problem with moderate severity. He presented to ED and they did labs on him to include EKG/CBC/CMP/D-dimer. EKG was read as normal, original not available at time of H+P. CBC completed and showed WBC 7.46, hgb 15.5, plt 196. CMP sodium 135.9, K+ 4.12, cl 99.4, bun 12.9 , cr 1.05, glucose 97.7. ABG was completed and showed ph 7.382, pco2 38.2, po2 93, hco3 22.7. ABG: Supports non gap metabolic acidosis with compensated respiratory alkalosis. Repeat ABG on Vapotherm ph 7.392, hc03 22.1, sodium 135.9 , cl 99.4 and albumin 4.10 showed primary metabolic acidosis with appropriately compensated respiratory alkalosis and additional metabolic alkalosis. Ddimer was 639.96 and elevated. lactic acid 0.76, magnesium 2.07, procalcitonin <0.05. NT pro bnp 67.400. Remainder of labs unremarkable. I discussed case w/ Er provider and I noted elevated ddimer and asked about CT PE and they checked on this. Found patient to be allergic to iodinated contrast dye oral and IV. I requested lovenox 1mg/kg BID dosing and ordered VQ for following day. He was started on IV doxy x 1 dose which was reasonable. Allergy to levaquin. He has no e/o sepsis, no SIRS, CXR was negative. A CT chest without contrast was ordered, Dr. Velazco called me on my cell and let me know that it was negative. I discussed w/o CT contrast we cannot know that and thus we would need the VQ tomorrow. I asked why Ddimer ordered and he noted acute SOA but no calf symptoms, no leg swelling/edema. No travel, no surgery, no other major red flags for DVT. I discussed +Ddimer is low specificity, high false + rate and that it can be present for many reasons to include infection, VTE/PE, CHF, AI disease, ACS. I reviewed the GENEVA score for this patient (REVISED) as he is following with hematology/oncology. We discussed this at length and he has no malignancy rather polycythemia corrected with phlebotomy. He has a score of 4 points Lynn score which represents moderate risk group ~20-30% incidence of PE from several studies. This did not change if I factored in possible malignancy. I thus talked with ER about 1mg/kg q 12 hour dosing. If VQ + or equivocal this is a difficult situation based on a low yield test. Patient admitted to inpatient status. Patient seen in room 119. Daughter Leisa, Step daughter Tiki and neighbor present in room. He has had worsening sciatica over last 1-2 weeks, generalized weakness, worsening ability to ambulate and self care. Difficulty breathing only exacerbated the difficulties. He is aware of his worsening health with time and wants to be DNR, no intubation at any cost. Family in room when I discussed this. He remained alert/oriented x 3. OOB to urinate and markedly SOA. Labs throughout hospital stay remained okay save the ABG, which seemed to worsen with time. CBC remained stable, he was afebrile and vitals stable. VQ stcan on 09/26/18 returned as indeterminate. We researched his "allergy" to contrast and found there was no allergy but he was told due to kidney function he should not have this process. Cr was 0.99 yesterday, GFR 73 and we proceeded with the CT PE protocol chest which returned negative for PE but prominent emphysematous changes. BNP was negative at admit, procalc was negative at admit. He has remained on vapotherm, hip/pain/back pain, generalized weakness persisted. He has completed 3 days of IV doxy, lost IV this am and I will change him to oral doxy to complete total of 10 doses (5 days)> Prednisone started 40mg daily, increased to 60mg daily and we will complete total fo 10 days of that. Generalized weakness, SI joint pain on right, Lumbosacral pain is amenable to therapy. I will d/c him from hospital and transfer to TCU for physical therapy short term rehab. After completion, we will resume cardiopulmonary outpatient rehab, see Dr. Gonzalez for 1 week f/u. I will order CBC/CMP to be completed in 48 hours. NO other am labs at day of d/c as CBC/CMP stable x 3 days. This am, day of d/c 09/28/18 patient was doing better, in bed vapotheram on. Duonebs qid , albuterol in between. Will f/u with patient tomorrow and then again sat/ . Not yet fully to baseline regarding breathing. WOuld benefit from TCU short course stay to continue to improve strength/ambulation, ADL. Day of d/c Exam: Vital Signs - 24 hr 09/27/18 09/27/18 09/27/18 13:35 14:00 17:18 Temperature 97.6 F Pulse Rate 74 Respiratory 22 Rate Blood Pressure 165/81 H O2 Sat by Pulse 95 94 L 94 L Oximetry 09/27/18 09/27/18 09/27/18 21:08 22:00 23:48 Temperature 98.2 F Pulse Rate 77 Respiratory 20 Rate Blood Pressure 164/78 H 160/72 H O2 Sat by Pulse 93 L 93 L 92 L Oximetry 09/28/18 09/28/18 09/28/18 02:00 04:51 05:52 Temperature 97.9 F Pulse Rate 80 Respiratory 20 Rate Blood Pressure 125/78 O2 Sat by Pulse 93 L 95 93 L Oximetry 09/28/18 07:45 Temperature Pulse Rate Respiratory 22 Rate Blood Pressure O2 Sat by Pulse Oximetry Constitutional: Appearance-This am he talked in full sentences, still coughing up brown phlegm. Breathing better despite ABG. Orientation- Oriented x 3, alert Build and Nutrition-[normal, bmi 25] General- Patient is pleasant and cooperative with the interview and exam. Short of breath persists, speaks in fragmented sentences but still seems to be improving overall. Patient has new bandage right forearm from IV site that had failed. ENMT: Hearing Assessment-normal to conversational speech. Nose and sinus- No sinus tenderness along frontal/maxillary region. External appearance normal and midline. Nares- bilateral quiet airflow, clear discharge. Nasal mucosa- No bleeding noted and no ulcerations observed. Boggy turbinates, erythematous. Lips - normal color, moist without cracks/lesions Oral Cavity/Palate- oral mucosa pink and moist. Tongue normal midline. Oropharynx- no pharyngeal erythema, Uvula midline. post nasal drip. No posterior exudate. Salivary glands- Non tender to palpation CHEST/LUNG: Inspection- symmetric chest wall no pectus deformity. Increased effort, accessory muscle use in abdomen, mild to moderate distress, Palpation- nontender sternum, ribline. No abnormal pulsations. Auscultation- Breath sounds diminished throughout all lung azul. tracheal sounds, bronchial sounds overlying sternum, Bronchovessicular sounds between scapulae posteriorly , vessicular breath sounds heard throughout periphery. Adventitious sounds- Scattered wheezes no rales, no e/o consolidation, scattered rhonchi. Coarse sounds throughout. Increased wheezing. Still no consolidation. no egophany. CARDIOVASCULAR: Carotid artery- normal, no bruits or abnormal pulsations. Jugular vein- no pulsations. Palpation/Percussion- Normal PMI, no palpable thrill Auscultation- Regular rate and rhythm. No murmur noted in sitting, supine positions. Extremities- no digital clubbing, cyanosis, edema, increased warmth. ABDOMEN: Inspection- normal and no visible pulsations. Normal contour. Auscultation- Bowel sounds normal, no abdominal bruits. Palpation/Percussion- soft, non-tender, no rebound tenderness, no rigidity (guarding), no jar tenderness, no masses. Liver-no hepatomegaly, Spleen no splenomegaly, Hernias - none. Rectal not examined. Peripheral Vascular: Lower extremity- Normal temperature with pink nailbeds and no ulcerations. DP pulses 2+ bilaterally. Pedal hair intact. Normal capillary refill. Edema- No edema. Musculoskeletal: Generalized-No generalized swelling or edema of extremities, no digital clubbing or cyanosis, neurovascularly intact all four extremities. Spine/Ribs- No deformities, masses or tenderness, no known fractures, normal strength, Normal ROM. Paraspinal tenderness lumbar. CRISTEL neg on right today. SLR negative bilaterally. Hallux strength 5/5, dorsiflexion of feet 5/5. Normal reflexes, normal str. Neurological: General- Moves all 4 extremities symmetrically. Symmetrical face and body posture. Cranial nerves- individually evaluated II-XII and intact. PERRLA, Normal EOMI, visual/special senses appear intact, Face is symmetrical and normal sensation/movement, normal tongue, normal strength/posture of neck musculature. Neuropsych: Oriented- Person, place, time. (AAOx3), Mood/affect- normal and congruent. Able to articulate well. Speech-Normal speech, normal rate, normal tone, normal use of language, volume and coherence. Thought content- normal with ability to perform basic computations and apply abstract thought/reason. Associations- intact, no SI/HI, no hallucinations, delusions, obsessions. Lymphatic: Head/Neck- normal size and non tender to palpation. Plan: 1. D/C hospital, [facility] TCU 2. COmplete 10 doses of doxycycline. Change to oral as of today to complete 10 doses. 3. Prednisone 60mg to complete 10 day course. 4. COntinue vapotherm 5. CBC/CMP to be checked in 48-72 hours 6. Phys therapy to continue for right SI joint and lumbosacral region 7.. Duoneb QID 8. Albuterol in between duoneb. 9. OOB as much as possible 10.Diet: regular 11. Activity up with assist, work with physical therapy 12. Continue previous home meds 13. New med Norvasc 5mg once daily 14. Will see patient again tomorrow in TCU status 15. Continue smart vest after nebs for secretions 16. Continue mucinex. New Meds: Norvasc 5mg once daily Prednisone 60mg daily to complete 10 day course. Spent >30 minutes on d/c patient today.
[2018-09-28] MEDS ORDERED: DOXYCYCLINE HYCLATE PO SCH (10:30)
[2018-09-28] MEDS ORDERED: NORVASC PO SCH (10:30)
== END 2018-09-28 10:47 | disposition short-term general hospital (02) | DRG 192 ==
LOC: ED 09:52 → MEDSURG B 12:20
PROVIDERS: ADMIT Family Medicine; ATTEND Family Medicine
DX: R06.2 Wheezing; R09.89 Other specified symptoms and signs involving the circulatory and respiratory systems; R53.1 Weakness; R05 Cough; M54.5 Low back pain; J44.1 Chronic obstructive pulmonary disease with (acute) exacerbation; R06.00 Dyspnea, unspecified; R09.02 Hypoxemia; R79.1 Abnormal coagulation profile; D75.1 Secondary polycythemia

== ENCOUNTER 2018-10-09 08:32 | Outpatient (RCR) ==
[2018-09-28 11:57] VITALS: BMI 26.6
[2018-11-05 11:59] VITALS: BP 142/60
== END 2018-11-08 23:59 ==
LOC: CAR.REHAB 08:32
PROVIDERS: ATTEND Internal Medicine
DX: I25.10 Atherosclerotic heart disease of native coronary artery without angina pectoris (principal); Z95.5 Presence of coronary angioplasty implant and graft
CPT/HCPCS: 93797

== ENCOUNTER 2018-11-18 12:47 | Outpatient (CLI) ==
[2018-09-28 11:57] VITALS: BMI 26.6
== END 2018-11-18 12:48 | disposition home or self-care (01) ==
LOC: LAB 12:47
PROVIDERS: ATTEND Internal Medicine Hematology & Oncology
DX: D75.1 Secondary polycythemia (principal); N18.9 Chronic kidney disease, unspecified; R53.82 Chronic fatigue, unspecified; Z79.899 Other long term (current) drug therapy
CPT/HCPCS: 36415; 80053; 82728; 83540; 83550; 85025; 99195

== ENCOUNTER 2019-12-14 16:11 | Inpatient (IN) ==
[2019-12-14] MEDS ORDERED: NITROSTAT SL PRN (16:21)
[2019-12-14] MEDS ORDERED: TYLENOL PO PRN (16:21)
[2019-12-14] MEDS ORDERED: VISTARIL INJ IM PRN (16:21)
[2019-12-14] MEDS ORDERED: ATROPINE SULFATE PFS IVP PRN (16:21)
[2019-12-14 16:50] LABS: BASOPHILS % (AUTO) 0.3 % (0.0-3.0); EOSINOPHILS # (AUTO) 0.3 K/ul (0.0-0.7); EOSINOPHILS % (AUTO) 2.7 % (0.0-7.0); HEMATOCRIT 49.9 % (42.0-52.0); HEMOGLOBIN 17.5 g/dl (14.0-18.0); IMMATURE GRANULOCYTE % (AUTO) 0.4 % (0.0-5.0); LYMPHOCYTES # (AUTO) 1.5 K/uL (0.60-3.4); LYMPHOCYTES % (AUTO) 15.8 (10.0-50.0); MEAN CORPUSCULAR HEMOGLOBIN 33.7 pg (27.0-31.0); MEAN CORPUSCULAR HGB CONC 35.1 (31.8-35.4); MONOCYTES # (AUTO) 0.7 K/uL (0.4-2.0); MONOCYTES % (AUTO) 7.5 (0-10); NEUTROPHILS % (AUTO) 73.3 % (42.2-75.2); PLATELET COUNT 195 10^3/uL (140-440); RDW COEFFICIENT OF VARIATION 12.9 % (11.6-14.8); WHITE BLOOD COUNT 9.61 K/ul (4.2-10.2)
[2019-12-14 16:57] VITALS: BMI 27.3
[2019-12-14 17:02] LABS: ALANINE AMINOTRANSFERASE 18.4 U/L (0-50); ALBUMIN 4.72 g/dL (3.5-5.0); ALKALINE PHOSPHATASE 71.8 U/L (56-119); ASPARTATE AMINO TRANSFERASE 28.5 U/L (17-59); BILIRUBIN,TOTAL 0.72 mg/dL (0.2-1.3); BLOOD UREA NITROGEN 16.3 mg/dL (9-20); CALCIUM 9.8 mg/dL (8.4-10.2); CARBON DIOXIDE 26.9 mmol/L (22-30.0); CHLORIDE 97.1 mmol/L (98-107); CREATININE 1.16 mg/dL (0.60-1.10); GLUCOSE 98.2 mg/dL (74-106); POTASSIUM 4.42 mmol/L (3.5-5.1); TOTAL PROTEIN 8.06 g/dL (6.3-8.2)
[2019-12-14] MEDS: SOLU-CORTEF 250 MG IVP SCH ×2 (17:09→20:54)
[2019-12-14] MEDS: ZITHROMAX PO SCH (17:09)
[2019-12-14] MEDS: ROCEPHIN 1 GM/50 ML D5W 1 GM/50 ML BAG IV SCH (17:09)
[2019-12-14] MEDS: LASIX IVP SCH (17:09)
--- NOTE | 2019-12-14 17:45 | DI ---
Exam: Single view chest x-ray. Date: 12/14/2019. Comparison: 11/02/2019. HISTORY: Shortness of breath. FINDINGS: No acute osseous abnormalities are seen. The lungs are hyperinflated. There is chronic s carring in the right lung base. The cardiac silhouette and pulmonary vasculature are normal. There are granulomatous calcifications. Vascular calcifications are also present. Impression: No acute intrathoracic findings. Emphysematous changes with vascular and granulomatous calcifications.
[2019-12-14 18:20] LABS: ABG BASE EXCESS -2 (-2.0-2.0); ABG PCO2 39.2 mmHg (35-45); ABG PH 7.382 (7.35-7.45)
[2019-12-14 18:21] LABS: ABG HCO3 23.3 (22.0-26.0); ABG TCO2 24 (22.0-28.0)
[2019-12-14 19:13] LABS: BILIRUBIN,URINE Negative (NEGATIVE); CLARITY,URINE Clear (CLEAR); COLOR,URINE Yellow (YELLOW); GLUCOSE, URINE (UA) Negative (NEGATIVE); KETONES,URINE Negative (NEGATIVE); LEUKOCYTE ESTERASE ,URINE Negative (NEGATIVE); NITRITE,URINE Negative (NEGATIVE); PROTEIN,URINE Negative (NEGATIVE); URINE, BLOOD Negative (NEGATIVE); UROBILINOGEN,URINE 0.2 (0.2)
[2019-12-14] MEDS: VENTOLIN HFA (PER PUFF-WITH SPACER) IH SCH (20:15)
[2019-12-14] MEDS: ASPIRIN EC PO SCH (20:47)
[2019-12-14] MEDS: CATAPRES PO SCH (20:47)
[2019-12-14] MEDS: MUCINEX PO SCH (20:48)
[2019-12-14] MEDS ORDERED: [UNRECOGNIZED DRUG - OTHER] PO SCH (21:00)
[2019-12-14] MEDS ORDERED: COZAAR PO SCH (21:00)
[2019-12-14] MEDS ORDERED: XANAX PO SCH (21:00)
[2019-12-14] MEDS: SYMBICORT 160-4.5 MCG INHALER IH SCH (21:11)
[2019-12-15] MEDS: VENTOLIN HFA (PER PUFF-WITH SPACER) IH SCH ×4 (04:50→20:40)
[2019-12-15 05:04] LABS: BASOPHILS % (AUTO) 0.2 % (0.0-3.0); HEMATOCRIT 45.9 % (42.0-52.0); IMMATURE GRANULOCYTE % (AUTO) 0.3 % (0.0-5.0); LYMPHOCYTES % (AUTO) 16.6 (10.0-50.0); MEAN CORPUSCULAR HGB CONC 34.9 (31.8-35.4); MEAN CORPUSCULAR VOLUME 94.6 fl (80.0-94.0); MONOCYTES # (AUTO) 0.2 K/uL (0.4-2.0); MONOCYTES % (AUTO) 4.1 (0-10); NEUTROPHILS # (AUTO) 4.6 K/ul (2.0-6.9); NEUTROPHILS % (AUTO) 78.8 % (42.2-75.2); PLATELET COUNT 206 10^3/uL (140-440); RDW COEFFICIENT OF VARIATION 12.6 % (11.6-14.8); RED BLOOD COUNT 4.85 10^6/ul (4.70-6.10); WHITE BLOOD COUNT 5.85 K/ul (4.2-10.2)
[2019-12-15 05:18] LABS: ALANINE AMINOTRANSFERASE 15.9 U/L (0-50); ALBUMIN 4.05 g/dL (3.5-5.0); ALKALINE PHOSPHATASE 57.5 U/L (56-119); ASPARTATE AMINO TRANSFERASE 23.8 U/L (17-59); BILIRUBIN,TOTAL 0.55 mg/dL (0.2-1.3); BLOOD UREA NITROGEN 22.1 mg/dL (9-20); CALCIUM 9.16 mg/dL (8.4-10.2); CARBON DIOXIDE 24.3 mmol/L (22-30.0); CHLORIDE 97.8 mmol/L (98-107); CREATININE 1.27 mg/dL (0.60-1.10); GLUCOSE 137.7 mg/dL (74-106); POTASSIUM 4.51 mmol/L (3.5-5.1); SODIUM 130.5 mmol/L (134.5-145); TOTAL PROTEIN 7.1 g/dL (6.3-8.2)
[2019-12-15] MEDS: SOLU-CORTEF 250 MG IVP SCH ×3 (05:28→20:42)
[2019-12-15] MEDS: LASIX IVP SCH (05:30)
[2019-12-15] MEDS: [UNRECOGNIZED DRUG - OTHER] PO SCH ×2 (08:10→20:47)
--- NOTE | 2019-12-15 08:39 | PCM.PROG ---
Attending Provider: ATTENDING PROVIDER: Dr. HAILEY SCHULTE This patient is seen with Margaret Hutchinson, Nurse Practitioner. DATE OF SERVICE: 12/15/19 SUBJECTIVE: This 79 year old /WHITE M was hospitalized 12/14/19. The patient is resting comfortably in the bed. He continues to complain of shortness of breath as usual and cough. COVID test is pending. He has had good output from Lasix. The patient has been up to the bathroom and eating well. Has been able to decrease to 2 liters per nasal cannula which is his baseline. We will continue IV antibiotics. REVIEW OF SYSTEMS: CONSTITUTIONAL: No night sweats. No fatigue, malaise, lethargy. No fever or chills. Weakness. HEENT: Eyes: No visual changes. No eye pain. No eye discharge. ENT: No runny nose. No epistaxis. No sinus pain. No odynophagia. No congestion. RESPIRATORY: Cough, no congestion. No hemoptysis. Shortness of breath. CARDIOVASCULAR: No angina symptoms. No CHF symptoms. No atypical chest pain for CAD. No palpitations. No orthopnea.. GASTROINTESTINAL: No abdominal pain. No nausea or vomiting. No diarrhea or constipation. No hematemesis. No hematochezia. GENITOURINARY: No urgency. No frequency. No dysuria. No hematuria. No obstructive symptoms. No discharge. No pain. No significant abnormal bleeding. MUSCULOSKELETAL: No musculoskeletal pain; no joint swelling. Leg swelling. NEUROLOGICAL: Awake, alert, oriented to time, place and person. No headache. No neck pain. No syncope. No seizures. No dizziness. PSYCHIATRIC: Not anxious. No depression. No suicidal thoughts. No homicidal thoughts. SKIN: No rash. No lesions. No wounds. ENDOCRINE: No unexplained weight loss. No weight gain. HEMATOLOGIC/LYMPHATIC: No anemia. No purpura. No petechiae. No prolonged or excessive bleeding. No palpable lymph nodes. PHYSICAL EXAMINATION: GENERAL: The patient is awake, alert and oriented, lying in bed in no distress. VITAL SIGNS: Temperature 97.7 F, Pulse 88, Respiratory Rate 20, BP 131/81, Pulse Ox 95% HEENT: Head normocephalic, atraumatic. Eyes: Extraocular muscles are intact. Pupils are equal, round and reactive to light and accommodation. Ears: No lesions. Nose appeared normal. Throat: No exudate or erythema. NECK: Supple. No JVD, no carotid bruit. No lymphadenopathy or thyromegaly. LUNGS: Diminished breath sounds. Bilateral expiratory wheezing. Clear to auscul tation. Percussion note normal. Chest symmetrical. HEART: S1, S2, no S3. No murmurs. No cyanosis or clubbing. No ascites. Pulses: Dorsalis pedis and posterior tibial pulses +1 to +2 both sides. ABDOMEN: Soft. Non-tender. Bowel sounds active. No CVA tenderness. No mass felt. EXTREMITIES: +1 pitting bilateral lower extremity edema. Full range of motion of all extremities, equal. NEUROLOGIC: No focal deficit. Cranial nerves II through XII are grossly intact. No headache, no double vision or headache. SKIN: Not dry. Intact. Turgor-normal. LYMPHATIC: No palpable lymph nodes/no lymphedema. MUSCULOSKELETAL: Normal joints with no swelling. Muscle tone is normal. LAB REVIEW: 12/15/19 04:54 12/15/19 04:54 12/15/19 04:54: TSH 1.110 12/15/19 04:54: Free T4 1.02 12/15/19 04:54: Sodium 130.5 L, Potassium 4.51, Chloride 97.8 L, Carbon Dioxide 24.3, Anion Gap 12.91, BUN 22.1 H, Creatinine 1.27 H, Estimated GFR (MDRD) 55.00, BUN/Creatinine Ratio 17.40, Glucose 137.7 H, Calcium 9.16, Total Bilirubin 0.55, AST 23.8, ALT 15.9, Alkaline Phosphatase 57.5, Total Protein 7.10, Albumin 4.05, Globulin 3.05, Albumin/Globulin Ratio 1.32 12/15/19 04:54: WBC 5.85, RBC 4.85, Hgb 16.0, Hct 45.9, MCV 94.6 H, MCH 33.0 H, MCHC 34.9, RDW Coeff of Bhaskar 12.6, Plt Count 206, Immature Gran % (Auto) 0.3, Neut % (Auto) 78.8 H, Lymph % (Auto) 16.6, [place] % (Auto) 4.1, Eos % (Auto) 0.0, Baso % (Auto) 0.2, Neut # (Auto) 4.6, Lymph # (Auto) 1.0, [place] # (Auto) 0.2 L, Eos # (Auto) 0.0, Baso # (Auto) 0.0, Immature Gran # (Auto) 0.0 12/14/19 19:08: Urine Color Yellow, Urine Clarity Clear, Urine pH 7.0, Ur Specific [place] 1.015, Urine Protein Negative, Urine Glucose (UA) Negative, Urine Ketones Negative, Urine Blood Negative, Urine Nitrite Negative, Urine Bilirubin Negative, Urine Urobilinogen 0.2, Ur Leukocyte Esterase Negative 12/14/19 16:44: Sodium 132.0 L, Potassium 4.42, Chloride 97.1 L, Carbon Dioxide 26.9, Anion Gap 12.42, BUN 16.3, Creatinine 1.16 H, Estimated GFR (MDRD) 61.00, BUN/Creatinine Ratio 14.05, Glucose 98.2, Calcium 9.80, Total Bilirubin 0.72, AST 28.5, ALT 18.4, Alkaline Phosphatase 71.8, Total Protein 8.06, Albumin 4.72, Globulin 3.34, Albumin/Globulin Ratio 1.41 12/14/19 16:44: WBC 9.61, RBC 5.20, Hgb 17.5, Hct 49.9, MCV 96.0 H, MCH 33.7 H, MCHC 35.1, RDW Coeff of Bhaskar 12.9, Plt Count 195, Immature Gran % (Auto) 0.4, Neut % (Auto) 73.3, Lymph % (Auto) 15.8, [place] % (Auto) 7.5, Eos % (Auto) 2.7, Baso % (Auto) 0.3, Neut # (Auto) 7.0 H, Lymph # (Auto) 1.5, [place] # (Auto) 0.7, Eos # (Auto) 0.3, Baso # (Auto) 0.0, Immature Gran # (Auto) 0.0 12/14/19 16:30: Puncture Site Rrad, O2 Saturation 93.0 L, ABG pH 7.382, ABG pCO2 39.2, ABG pO2 68.0 L, ABG HCO3 23.3, ABG Total CO2 24, ABG Base Excess -2, Albino Test +, O2 Delivery Device Nc, Oxygen Liter Flow 2.00 ASSESSMENT: Please see below. 1. Acute bronchitis 2. Chronic lung disease 3. Acute respiratory failure 4. Leg edema PLAN: 1. COVID test pending 2. Continue IV antibiotics 3. Monitor I&O 4. Normal saline at 70 times one bag Plan and coordination of the patient's care discussed in the presence of Senior Information Developer and nurse. SCRIBED BY: Valentin VELEZ scribed while in presence of service performed by Dr. Schulte/Margaret Hutchinson APRN on 12/15/19 ([id number])
[2019-12-15] MEDS: SYMBICORT 160-4.5 MCG INHALER IH SCH ×2 (08:49→20:50)
[2019-12-15] MEDS: ROCEPHIN 1 GM/50 ML D5W 1 GM/50 ML BAG IV SCH (08:49)
[2019-12-15] MEDS: MIRALAX PO SCH (08:49)
[2019-12-15] MEDS: SODIUM CHLORIDE 1,000 ML IV SCH (08:49)
[2019-12-15] MEDS: ZOVIRAX PO SCH (08:50)
[2019-12-15] MEDS: XANAX PO SCH ×2 (08:50→20:43)
[2019-12-15] MEDS: FLOMAX PO SCH (08:50)
[2019-12-15] MEDS: PROTONIX PO SCH (08:50)
[2019-12-15] MEDS: MUCINEX PO SCH ×2 (08:50→20:42)
[2019-12-15] MEDS: COZAAR PO SCH (08:51)
[2019-12-15] MEDS: CATAPRES PO SCH ×2 (08:51→20:43)
[2019-12-15] MEDS: LEXAPRO PO SCH (08:51)
[2019-12-15] MEDS: ZITHROMAX PO SCH (08:51)
[2019-12-15] MEDS: FLONASE NAS SCH (08:54)
--- NOTE | 2019-12-15 10:02 | PN ---
DATE OF SERVICE: 12/14/19 SUBJECTIVE: The patient was seen and examined with the nurse practitioner. History and physical was done. The patient was admitted with acute respiratory failure, acute bronchitis, chronic lung diseae, leg edema likely from cor pulmonale. Echo to evaluate LV function. The patient is going to be hospitalized with IV Lasix, leg elevation. Continue Norvasc which could be contributing to the leg edema. Reduce salt intake. Pulmonary rehab was helping this patient a lot; because of the Covid that has been stopped. TIME SPENT: More than 30 minutes. Plan and coordination of the patient's care discussed in the presence of nurse. NITIN
--- NOTE | 2019-12-15 11:05 | HP ---
DATE OF SERVICE: 12/14/2019 REASON FOR HOSPITALIZATION/HISTORY OF PRESENT ILLNESS: 79 year old male hospitalized with cough with productive clear to white sputum. He is having swelling in both feet. Complains of shortness of air more so than usual. Has had to increase O2 to 4 liters nasal cannula. No signs or symptoms of CHF/CAD/COVID. Gained one pound. PAST MEDICAL HISTORY/PAST SURGICAL HISTORY: History of dermatitis/folliculitis History of max sinusitis with CARTAGENA PVC/PAC Ventricular freq Palpitations Right sciatica- hip pain Chronic bronchitis CAD with stent Symptomatic Isaac JOSE ALFREDO Polycythemia- Dr. Dockery Hypertension Anxiety On O2 Sleep apnea (CPAP) Abnormal chest x-ray -Dr. Ontiveros Pulmonary rehab BPH Dr. Oconnor PVC A1c 5.5 11/09/2019 REVIEW OF SYSTEMS: CONSTITUTIONAL: No fever, Fatigue. HEENT: No sinus drainage, no sore throat. RESPIRATORY: No cough, no congestion. CARDIOVASCULAR: No atypical chest pain for coronary artery disease. No angina, CHF symptoms, palpitations. Shortness of breath more than usual. GASTROINTESTINAL: No melena or abdominal pain. No GERD. GENITOURINARY: No hematuria, no prostatism, no polyuria. FUNERAL HOME GENERAL MANAGER: No blackout, no dizziness, no headache, no double vision. MUSCULOSKELETAL: Osteoarthritis pain, no joint swelling. ENDOCRINE: No weight loss, Weight gain, 1 pound. SKIN: Not dry, no rash. PSYCHIATRIC: Not anxious, no depression, no suicidal thoughts, no homicidal thoughts. SOCIAL HISTORY: Marital Status: . Alcohol Usage: No. Tobacco Usage: No. MEDICATIONS: Losartan 100mg BID Clonidine 0.2mg BID Acyclovin 400mg daily Protonix 40mg PO daily Xanax 0.5mg BID Stiolto 2 puffs daily Flomax 0.4mg daily Norvasc 5mg BID Aspirin 81mg daily Asmanex HFA two puffs BID-Likely talk to daughter Albuterol 0.083 BID Ventolin HFA PRN Mucinex 600mg three daily Tramadol 50mg PO BID times 10 days Budesonide 0.5-2mg daily Fluticasone propionate intranasal Lexapro 10mg daily Miralax daily ALLERGIES: Levaquin IV dye PHYSICAL EXAMINATION: V/S: Pulse 80, blood pressure 122/72, temperature 98.1, oxygen saturation 93% patient on O2 4 liters nasal cannula. BMI 26.7, Height 6' GENERAL APPEARANCE: Oriented times three. HEENT: Normal. NECK: No JVP, no bruits. RESPIRATORY:Decreased breath sounds bilateral expiratory wheezing. CARDIOVASCULAR: S1, S2, no S3, no murmur. No cyanosis, clubbing. No ascites. GI/ABDOMEN: No tenderness. Bowel sounds are active. EXTREMITIES: +1 pitting bilateral lower extremity edema, pulses +1, equal. FUNERAL HOME GENERAL MANAGER: Deep tendon reflexes, sensory, motor and gait all normal. RECTAL: 2016 Dr. Greene, Dr. Ontiveros refused to clear the patient for colonoscopy 2019 /PELVIC: Colorectal refused/PROSTATE: Dr. Oconnor 1-19 (1-0). ASSESSMENT: 1. Acute bronchitis 2. Chronic lung disease 3. Acute respiratory failure 4. Leg edema 5. History of dermatitis/folliculitis 6. History of maxillary sinusitis with headache 7. PVC/PAC 8. Ventricular frequency 9. Palpitations 10.Right sciatica- hip pain 11.Chronic bronchitis 12.CAD with stent 13.Symptomatic Isaac 14.JOSE ALFREDO 15.Polycythemia- Dr. Dockery 16.Hypertension 17.Anxiety 18.On O2 19.Sleep apnea (CPAP) 20.Abnormal chest x-ray -Dr. Ontiveros 21.Pulmonary rehab 22.BPH Dr. Oconnor 23.PVC 24.A1c 5.5 11/09/2019 PLAN: 1. Admit 2. Routine telemetry orders-No cardiac markers 3. COVID-19 test-[facility] 4. Lasix 40mg IV now and daily 5. Elevate legs 6. Discontinue Norvasc and Stiolto, Asmanex HFA 7. Solu-Cortef 125mg Q 8 hours IV 1st dose now 8. Ventolin inhaler two puffs scheduled QID 9. Symbicort 2 puffs BID 10.Rocephin 1 gram IV now and daily 11.Zithromax 500mg PO daily times three days 12.Continue Home medications 13.Regular low sodium diet 14.ABG now on 4 liters nasal cannula 15.CBC, CMP now and daily 16.Sputum for culture and sensitivity 17.T4, TSH in AM 18.Chest x-ray now TIME SPENT: More than 70 minutes. MTDD
[2019-12-15] MEDS: ARTIFICIAL TEARS DROPS OP PRN ×2 (12:12→20:45)
[2019-12-15] MEDS: LOTRISONE 45 GM TP SCH ×2 (12:12→20:44)
[2019-12-15] MEDS: ASPIRIN EC PO SCH (20:42)
[2019-12-16 05:11] LABS: BASOPHILS % (AUTO) 0.1 % (0.0-3.0); HEMATOCRIT 43.2 % (42.0-52.0); HEMOGLOBIN 15.2 g/dl (14.0-18.0); IMMATURE GRANULOCYTE % (AUTO) 0.3 % (0.0-5.0); LYMPHOCYTES # (AUTO) 1.2 K/uL (0.60-3.4); LYMPHOCYTES % (AUTO) 13.2 (10.0-50.0); MEAN CORPUSCULAR HEMOGLOBIN 33.2 pg (27.0-31.0); MEAN CORPUSCULAR HGB CONC 35.2 (31.8-35.4); MEAN CORPUSCULAR VOLUME 94.3 fl (80.0-94.0); MONOCYTES # (AUTO) 0.5 K/uL (0.4-2.0); MONOCYTES % (AUTO) 5.2 (0-10); NEUTROPHILS # (AUTO) 7.2 K/ul (2.0-6.9); NEUTROPHILS % (AUTO) 81.2 % (42.2-75.2); PLATELET COUNT 182 10^3/uL (140-440); RDW COEFFICIENT OF VARIATION 12.6 % (11.6-14.8); RED BLOOD COUNT 4.58 10^6/ul (4.70-6.10); WHITE BLOOD COUNT 8.89 K/ul (4.2-10.2)
[2019-12-16 05:23] LABS: ALANINE AMINOTRANSFERASE 14.4 U/L (0-50); ALBUMIN 3.69 g/dL (3.5-5.0); ALKALINE PHOSPHATASE 49.8 U/L (56-119); ASPARTATE AMINO TRANSFERASE 20.7 U/L (17-59); BILIRUBIN,TOTAL 0.32 mg/dL (0.2-1.3); BLOOD UREA NITROGEN 20.9 mg/dL (9-20); CALCIUM 8.83 mg/dL (8.4-10.2); CHLORIDE 97.9 mmol/L (98-107); GLUCOSE 129.4 mg/dL (74-106); POTASSIUM 3.97 mmol/L (3.5-5.1); SODIUM 130.9 mmol/L (134.5-145); TOTAL PROTEIN 6.29 g/dL (6.3-8.2)
[2019-12-16] MEDS: PROTONIX PO SCH (05:48)
[2019-12-16] MEDS: LASIX IVP SCH (05:49)
[2019-12-16] MEDS: SOLU-CORTEF 250 MG IVP SCH ×3 (05:49→21:50)
[2019-12-16] MEDS: VENTOLIN HFA (PER PUFF-WITH SPACER) IH SCH ×4 (05:53→20:05)
[2019-12-16] MEDS: [UNRECOGNIZED DRUG - OTHER] PO SCH ×2 (09:00→20:55)
[2019-12-16] MEDS: MIRALAX PO SCH (09:05)
[2019-12-16] MEDS: ROCEPHIN 1 GM/50 ML D5W 1 GM/50 ML BAG IV SCH (09:05)
[2019-12-16] MEDS: LEXAPRO PO SCH (09:06)
[2019-12-16] MEDS: CATAPRES PO SCH ×2 (09:06→20:53)
[2019-12-16] MEDS: ZITHROMAX PO SCH (09:07)
[2019-12-16] MEDS: XANAX PO SCH ×2 (09:07→20:54)
[2019-12-16] MEDS: ZOVIRAX PO SCH (09:07)
[2019-12-16] MEDS: FLOMAX PO SCH (09:08)
[2019-12-16] MEDS: COZAAR PO SCH (09:08)
[2019-12-16] MEDS: MUCINEX PO SCH ×2 (09:08→20:54)
[2019-12-16] MEDS: LOTRISONE 45 GM TP SCH ×2 (09:12→20:56)
[2019-12-16] MEDS: FLONASE NAS SCH (09:12)
[2019-12-16] MEDS: SYMBICORT 160-4.5 MCG INHALER IH SCH ×2 (09:13→20:56)
[2019-12-16] MEDS: ARTIFICIAL TEARS DROPS OP PRN (17:55)
[2019-12-16] MEDS: ASPIRIN EC PO SCH (20:54)
[2019-12-17] MEDS: VENTOLIN HFA (PER PUFF-WITH SPACER) IH SCH ×4 (05:04→20:40)
[2019-12-17] MEDS: LASIX TAB PO SCH (05:40)
[2019-12-17] MEDS: PROTONIX PO SCH (05:40)
[2019-12-17] MEDS: ARTIFICIAL TEARS DROPS OP PRN (05:41)
[2019-12-17 07:19] LABS: BASOPHILS % (AUTO) 0.1 % (0.0-3.0); HEMOGLOBIN 16.9 g/dl (14.0-18.0); IMMATURE GRANULOCYTE % (AUTO) 0.3 % (0.0-5.0); LYMPHOCYTES # (AUTO) 1.3 K/uL (0.60-3.4); LYMPHOCYTES % (AUTO) 14.1 (10.0-50.0); MEAN CORPUSCULAR HEMOGLOBIN 32.6 pg (27.0-31.0); MEAN CORPUSCULAR HGB CONC 34.5 (31.8-35.4); MEAN CORPUSCULAR VOLUME 94.4 fl (80.0-94.0); MONOCYTES # (AUTO) 0.6 K/uL (0.4-2.0); MONOCYTES % (AUTO) 6.8 (0-10); NEUTROPHILS # (AUTO) 7.3 K/ul (2.0-6.9); NEUTROPHILS % (AUTO) 78.7 % (42.2-75.2); PLATELET COUNT 199 10^3/uL (140-440); RDW COEFFICIENT OF VARIATION 12.8 % (11.6-14.8); RED BLOOD COUNT 5.19 10^6/ul (4.70-6.10); WHITE BLOOD COUNT 9.31 K/ul (4.2-10.2)
[2019-12-17] MEDS: SODIUM CHLORIDE 1,000 ML IV SCH (07:25)
[2019-12-17 07:31] LABS: ALANINE AMINOTRANSFERASE 17.1 U/L (0-50); ALBUMIN 4.18 g/dL (3.5-5.0); ALKALINE PHOSPHATASE 56.3 U/L (56-119); BILIRUBIN,TOTAL 0.52 mg/dL (0.2-1.3); BLOOD UREA NITROGEN 20.2 mg/dL (9-20); CALCIUM 9.05 mg/dL (8.4-10.2); CARBON DIOXIDE 30.4 mmol/L (22-30.0); CHLORIDE 93.8 mmol/L (98-107); CREATININE 1.08 mg/dL (0.60-1.10); GLUCOSE 113.5 mg/dL (74-106); POTASSIUM 3.38 mmol/L (3.5-5.1); SODIUM 131.5 mmol/L (134.5-145); TOTAL PROTEIN 7.21 g/dL (6.3-8.2)
--- NOTE | 2019-12-17 08:33 | PCM.PROG ---
Attending Provider: ATTENDING PROVIDER: Dr. HAILEY SCHULTE This patient is seen with Margaret Hutchinson, Nurse Practitioner. DATE OF SERVICE: 12/17/19 SUBJECTIVE: This 79 year old /WHITE M was hospitalized 12/14/19. The patient is laying in the bed resting comfortably. He reports that he is feeling much better. Breathing is less labored. Swelling has improved. He is eating well. He has been up and about in the room. Oxygen saturation is 97% on room air. Will continue IV antibiotics. REVIEW OF SYSTEMS: CONSTITUTIONAL: No night sweats. No fatigue, malaise, lethargy. No fever or chills. Weakness. HEENT: Eyes: No visual changes. No eye pain. No eye discharge. ENT: No runny nose. No epistaxis. No sinus pain. No odynophagia. No congestion. RESPIRATORY: Cough, improved. No congestion. No hemoptysis. Shortness of breath, improved. CARDIOVASCULAR: No angina symptoms. No CHF symptoms. No atypical chest pain for CAD. No palpitations. No orthopnea.. GASTROINTESTINAL: No abdominal pain. No nausea or vomiting. No diarrhea or constipation. No hematemesis. No hematochezia. GENITOURINARY: No urgency. No frequency. No dysuria. No hematuria. No obstructive symptoms. No discharge. No pain. No significant abnormal bleeding. MUSCULOSKELETAL: No musculoskeletal pain; no joint swelling. NEUROLOGICAL: Awake, alert, oriented to time, place and person. No headache. No neck pain. No syncope. No seizures. No dizziness. PSYCHIATRIC: Not anxious. No depression. No suicidal thoughts. No homicidal thoughts. SKIN: No rash. No lesions. No wounds. ENDOCRINE: No unexplained weight loss. No weight gain. HEMATOLOGIC/LYMPHATIC: No anemia. No purpura. No petechiae. No prolonged or exce ssive bleeding. No palpable lymph nodes. PHYSICAL EXAMINATION: GENERAL: The patient is awake, alert and oriented, lying in bed in no distress. VITAL SIGNS: Temperature 97.6 F, Pulse 68, Respiratory Rate 16, BP 155/79, Pulse Ox 97% HEENT: Head normocephalic, atraumatic. Eyes: Extraocular muscles are intact. Pupils are equal, round and reactive to light and accommodation. Ears: No lesions. Nose appeared normal. Throat: No exudate or erythema. NECK: Supple. No JVD, no carotid bruit. No lymphadenopathy or thyromegaly. LUNGS: Diminished breath sounds. Clear to auscultation. Percussion note normal. Chest symmetrical. HEART: S1, S2, no S3. No murmurs. No cyanosis or clubbing. No ascites. Pulses: Dorsalis pedis and posterior tibial pulses +1 to +2 both sides. ABDOMEN: Soft. Non-tender. Bowel sounds active. No CVA tenderness. No mass felt. EXTREMITIES: No edema. Full range of motion of all extremities, equal. NEUROLOGIC: No focal deficit. Cranial nerves II through XII are grossly intact. No headache, no double vision or headache. SKIN: Not dry. Intact. Turgor-normal. LYMPHATIC: No palpable lymph nodes/no lymphedema. MUSCULOSKELETAL: Normal joints with no swelling. Muscle tone is normal. LAB REVIEW: 12/17/19 07:16 12/17/19 07:16 12/17/19 07:16: Sodium 131.5 L, Potassium 3.38 L, Chloride 93.8 L, Carbon Dioxide 30.4 H, Anion Gap 10.68, BUN 20.2 H, Creatinine 1.08, Estimated GFR (MDRD) 66.00, BUN/Creatinine Ratio 18.70, Glucose 113.5 H, Calcium 9.05, Total Bilirubin 0.52, AST 23.0, ALT 17.1, Alkaline Phosphatase 56.3, Total Protein 7.21, Albumin 4.18, Globulin 3.03, Albumin/Globulin Ratio 1.37 12/17/19 07:16: WBC 9.31, RBC 5.19, Hgb 16.9, Hct 49.0, MCV 94.4 H, MCH 32.6 H, MCHC 34.5, RDW Coeff of Bhaskar 12.8, Plt Count 199, Immature Gran % (Auto) 0.3, Neut % (Auto) 78.7 H, Lymph % (Auto) 14.1, [place] % (Auto) 6.8, Eos % (Auto) 0.0, Baso % (Auto) 0.1, Neut # (Auto) 7.3 H, Lymph # (Auto) 1.3, [place] # (Auto) 0.6, Eos # (Auto) 0.0, Baso # (Auto) 0.0, Immature Gran # (Auto) 0.0 ASSESSMENT: Please see below. 1. Acute bronchitis 2. Chronic lung disease 3. Acute respiratory failure 4. Leg edema PLAN: 1. Continue IV antibiotics 2. Encourage the patient to be up and about 3. Prednisone 20mg PO today and discontinue IV Solu-Cortef Plan and coordination of the patient's care discussed in the presence of Filament Maker and nurse. SCRIBED BY: Merced VELEZist scribed while in presence of service performed by Dr. Schulte/Margaret Hutchinson APRN on 12/17/19 ([id number])
[2019-12-17] MEDS: CATAPRES PO SCH ×2 (09:13→20:17)
[2019-12-17] MEDS: ROCEPHIN 1 GM/50 ML D5W 1 GM/50 ML BAG IV SCH (09:13)
[2019-12-17] MEDS: MIRALAX PO SCH (09:13)
[2019-12-17] MEDS: XANAX PO SCH ×2 (09:13→20:17)
[2019-12-17] MEDS: FLOMAX PO SCH (09:14)
[2019-12-17] MEDS: MUCINEX PO SCH ×2 (09:14→20:17)
[2019-12-17] MEDS: K-DUR PO SCH ×2 (09:14→17:23)
[2019-12-17] MEDS: ZOVIRAX PO SCH (09:14)
[2019-12-17] MEDS: COZAAR PO SCH (09:14)
[2019-12-17] MEDS: PREDNISONE PO SCH (09:14)
[2019-12-17] MEDS: LEXAPRO PO SCH (09:15)
[2019-12-17] MEDS: FLONASE NAS SCH (09:15)
[2019-12-17] MEDS: LOTRISONE 45 GM TP SCH ×2 (09:15→20:16)
[2019-12-17] MEDS: SYMBICORT 160-4.5 MCG INHALER IH SCH ×2 (09:15→20:15)
[2019-12-17] MEDS: [UNRECOGNIZED DRUG - OTHER] PO SCH ×2 (10:04→20:18)
--- NOTE | 2019-12-17 10:44 | PN ---
DATE OF SERVICE: 12/15/2019 SUBJECTIVE: The patient was seen and examined this morning with the Nurse Practitioner. The patient's condition has improved. According to him he is feeling a lot better. Cardiovascular status is stable. No evidence of CHF. No symptoms of COVID except for mild cough with congestion. No fever and chills. Taste is good, appetite normal. The patient's leg edema is a lot less. Puckering skin which is kind of itchy. Lotrisone cream. CONDITION: Improved. The patient overall advised to cut down on salt intake. Also advised to elevate the legs. Discontinue the Amlodipine. TIME SPENT: More than 30 minutes. Plan and coordination of the patient's care discussed in the presence of nurse. NITIN
--- NOTE | 2019-12-17 11:22 | PN ---
DATE OF SERVICE: 12/16/2019 SUBJECTIVE: 79 year old white male hospitalized with acute bronchitis and chronic lung disease. The patient's condition has improved. He is COVID negative. He is sitting in the room now, Room 116 and feeling a lot better. He says that this leg swelling has gone down and there is not much itching. REVIEW OF SYSTEMS: CONSTITUTIONAL: No night sweats. No fatigue, malaise, lethargy. No fever or chills. HEENT: Eyes: No visual changes. No eye pain. No eye discharge. ENT: No runny nose. No epistaxis. No sinus pain. No sore throat. No odynophagia. No congestion. RESPIRATORY: Mild cough with congestion much less than before. No hemoptysis. No shortness of breath. CARDIOVASCULAR: No angina symptoms. No CHF symptoms. No atypical chest pain for CAD. No palpitations. No PND. No orthopnea. GASTROINTESTINAL: No abdominal pain. No nausea or vomiting. No diarrhea or constipation. No hematemesis. No hematochezia. Appetite has improved. GENITOURINARY: No urgency. No frequency. No dysuria. No hematuria. No obstructive symptoms. No discharge. No pain. No significant abnormal bleeding. MUSCULOSKELETAL: No musculoskeletal pain; no joint swelling. NEUROLOGICAL: No headache. No neck pain. No syncope. No seizures. No dizziness. PSYCHIATRIC: Not anxious. No depression. No suicidal thoughts. No homicidal thoughts. SKIN: No rash. No lesions. No wounds. ENDOCRINE: No unexplained weight loss. No weight gain. HEMATOLOGIC/LYMPHATIC: No anemia. No purpura. No petechiae. No prolonged or excessive bleeding. No palpable lymph nodes. PHYSICAL EXAMINATION: VITAL SIGNS: Temperature 97.1, pulse 63, respiratory rate 20, blood pressure 150/70 and pulse ox 97%. HEENT: Head normocephalic, atraumatic. Eyes: Extraocular muscles are intact. Pupils are equal, round and reactive to light and accommodation. Ears: No lesions. Nose appeared normal. Throat: No exudate or erythema. NECK: Supple. No JVD, no carotid bruit. No lymphadenopathy or thyromegaly. LUNGS: Decreased breath sounds. Clear to auscultation. Percussion note normal. Chest symmetrical. HEART: S1, S2, no S3. No murmurs. No cyanosis or clubbing. No ascites. Pulses: Dorsalis pedis and posterior tibial pulses +1 to +2 bilaterally. ABDOMEN: Soft. Nontender. Bowel sounds active. No CVA tenderness. No mass felt. EXTREMITIES: No edema. Full range of motion of all extremities, equal. NEUROLOGIC: No focal deficit. Cranial nerves II through XII are grossly intact. No headache, no double vision or headache. SKIN: Not dry. Intact. Turgor - normal. LYMPHATIC: No palpable lymph nodes/no lymphedema. MUSCULOSKELETAL: Normal joints with no swelling. Muscle tone is normal. LABS: Hgb 15.2, hct 43, WBC 8,000 normal differential, creatinine 1, BUN 20, potassium 3.9, TSH normal. ASSESSMENT: 1. Acute bronchitis with pneumonitis resolving 2. Cor Pulmonale with leg swelling seems to be subsiding 3. COVID Negative PLAN: 1. Give patient Lasix, will change to PO 2. Sodium is 130.9 stabilizing 3. Potassium is normal 4. Continue Antibiotics 5. Advised to cut down on salt 6. Advised to keep the legs higher than the hips 7. Continue NEBS treatment The patient has been explained about his lung problems that slowly the chronic lung disease has been advancing even with treatment showed course of the disease. The patient also has coronary artery disease which seems to be stable for now. Both discussed. TIME SPENT: More than 30 minutes. Plan and coordination of the patient's care discussed in the presence of nurse. NITIN
--- NOTE | 2019-12-17 14:43 | PN ---
DATE OF SERVICE: 12/17/2019 SUBJECTIVE: The patient was seen and examined with the Nurse Practitioner. The patient's condition has improved. His edema has subsided. Has been discussed about pulmonary rehab which he should start as soon as he would. Elevate the legs and cut down on salt intake. Pulmonary exercises discussed. CONDITION: Stable. TIME SPENT: More than 30 minutes. Plan and coordination of the patient's care discussed in the presence of nurse. NITIN
[2019-12-17] MEDS: ASPIRIN EC PO SCH (20:17)
[2019-12-18] MEDS: VENTOLIN HFA (PER PUFF-WITH SPACER) IH SCH ×2 (04:55→10:11)
[2019-12-18 05:39] LABS: BASOPHILS % (AUTO) 0.1 % (0.0-3.0); EOSINOPHILS % (AUTO) 0.1 % (0.0-7.0); HEMATOCRIT 48.4 % (42.0-52.0); HEMOGLOBIN 16.4 g/dl (14.0-18.0); IMMATURE GRANULOCYTE % (AUTO) 0.2 % (0.0-5.0); LYMPHOCYTES # (AUTO) 2.2 K/uL (0.60-3.4); LYMPHOCYTES % (AUTO) 24.5 (10.0-50.0); MEAN CORPUSCULAR HEMOGLOBIN 32.4 pg (27.0-31.0); MEAN CORPUSCULAR HGB CONC 33.9 (31.8-35.4); MEAN CORPUSCULAR VOLUME 95.7 fl (80.0-94.0); MONOCYTES # (AUTO) 0.8 K/uL (0.4-2.0); MONOCYTES % (AUTO) 9.2 (0-10); NEUTROPHILS # (AUTO) 5.8 K/ul (2.0-6.9); NEUTROPHILS % (AUTO) 65.9 % (42.2-75.2); PLATELET COUNT 194 10^3/uL (140-440); RDW COEFFICIENT OF VARIATION 13.1 % (11.6-14.8); RED BLOOD COUNT 5.06 10^6/ul (4.70-6.10); WHITE BLOOD COUNT 8.76 K/ul (4.2-10.2)
[2019-12-18 05:48] LABS: ALANINE AMINOTRANSFERASE 16.5 U/L (0-50); ALKALINE PHOSPHATASE 51.3 U/L (56-119); ASPARTATE AMINO TRANSFERASE 21.6 U/L (17-59); BILIRUBIN,TOTAL 0.63 mg/dL (0.2-1.3); BLOOD UREA NITROGEN 20.5 mg/dL (9-20); CALCIUM 9.08 mg/dL (8.4-10.2); CARBON DIOXIDE 32.1 mmol/L (22-30.0); CHLORIDE 95.5 mmol/L (98-107); CREATININE 1.1 mg/dL (0.60-1.10); GLUCOSE 95.8 mg/dL (74-106); POTASSIUM 3.86 mmol/L (3.5-5.1); SODIUM 132.5 mmol/L (134.5-145); TOTAL PROTEIN 6.91 g/dL (6.3-8.2)
[2019-12-18 05:49] VITALS: TEMP 98.4
[2019-12-18] MEDS: LASIX TAB PO SCH (05:55)
[2019-12-18] MEDS: PROTONIX PO SCH (05:56)
[2019-12-18] MEDS: ARTIFICIAL TEARS DROPS OP PRN ×2 (05:56→09:57)
--- NOTE | 2019-12-18 08:28 | PCM.PROG ---
Attending Provider: ATTENDING PROVIDER: Dr. HAILEY SCHULTE This patient is seen with Margaret Hutchinson, Nurse Practitioner. DATE OF SERVICE: 12/18/19 SUBJECTIVE: This 79 year old /WHITE M was hospitalized 12/14/19. The patient is resting comfortably in the bed. The patient reports improved shortness of breath and cough. No fever. reports he is feeling much better and ready to go home. We will send him home on Omnicef 300mg BID for 7 days. We will taper his Prednisone. The patient will have 2D echo prior to discharge. REVIEW OF SYSTEMS: CONSTITUTIONAL: No night sweats. No fatigue, malaise, lethargy. No fever or chills. HEENT: Eyes: No visual changes. No eye pain. No eye discharge. ENT: No runny nose. No epistaxis. No sinus pain. No odynophagia. No congestion. RESPIRATORY: Cough, improved. No congestion. No hemoptysis. Shortness of breath, improved. CARDIOVASCULAR: No angina symptoms. No CHF symptoms. No atypical chest pain for CAD. No palpitations. No orthopnea.. GASTROINTESTINAL: No abdominal pain. No nausea or vomiting. No diarrhea or constipation. No hematemesis. No hematochezia. GENITOURINARY: No urgency. No frequency. No dysuria. No hematuria. No obstruct ana symptoms. No discharge. No pain. No significant abnormal bleeding. MUSCULOSKELETAL: No musculoskeletal pain; no joint swelling. NEUROLOGICAL: Awake, alert, oriented to time, place and person. No headache. No neck pain. No syncope. No seizures. No dizziness. PSYCHIATRIC: Not anxious. No depression. No suicidal thoughts. No homicidal thoughts. SKIN: No rash. No lesions. No wounds. ENDOCRINE: No unexplained weight loss. No weight gain. HEMATOLOGIC/LYMPHATIC: No anemia. No purpura. No petechiae. No prolonged or excessive bleeding. No palpable lymph nodes. PHYSICAL EXAMINATION: GENERAL: The patient is awake, alert and oriented, sitting in bed in no distress. VITAL SIGNS: Temperature 98.4 F, Pulse 53, Respiratory Rate 20, BP 146/79, Pulse Ox 96% HEENT: Head normocephalic, atraumatic. Eyes: Extraocular muscles are intact. Pupils are equal, round and reactive to light and accommodation. Ears: No lesions. Nose appeared normal. Throat: No exudate or erythema. NECK: Supple. No JVD, no carotid bruit. No lymphadenopathy or thyromegaly. LUNGS: Diminished breath sounds. Clear to auscultation. Percussion note normal. Chest symmetrical. HEART: S1, S2, no S3. No murmurs. No cyanosis or clubbing. No ascites. Pulses: Dorsalis pedis and posterior tibial pulses +1 to +2 both sides. ABDOMEN: Soft. Non-tender. Bowel sounds active. No CVA tenderness. No mass felt. EXTREMITIES: No edema. Full range of motion of all extremities, equal. NEUROLOGIC: No focal deficit. Cranial nerves II through XII are grossly intact. No headache, no double vision or headache. SKIN: Not dry. Intact. Turgor-normal. LYMPHATIC: No palpable lymph nodes/no lymphedema. MUSCULOSKELETAL: Normal joints with no swelling. Muscle tone is normal. LAB REVIEW: 12/18/19 05:27 12/18/19 05:27 12/18/19 05:27: WBC 8.76, RBC 5.06, Hgb 16.4, Hct 48.4, MCV 95.7 H, MCH 32.4 H, MCHC 33.9, RDW Coeff of Bhaskar 13.1, Plt Count 194, Immature Gran % (Auto) 0.2, Neut % (Auto) 65.9, Lymph % (Auto) 24.5, [place] % (Auto) 9.2, Eos % (Auto) 0.1, Baso % (Auto) 0.1, Neut # (Auto) 5.8, Lymph # (Auto) 2.2, [place] # (Auto) 0.8, Eos # (Auto) 0.0, Baso # (Auto) 0.0, Immature Gran # (Auto) 0.0 12/18/19 05:27: Sodium 132.5 L, Potassium 3.86, Chloride 95.5 L, Carbon Dioxide 32.1 H, Anion Gap 8.76, BUN 20.5 H, Creatinine 1.10, Estimated GFR (MDRD) 64.00, BUN/Creatinine Ratio 18.63, Glucose 95.8, Calcium 9.08, Total Bilirubin 0.63, T 21.6, ALT 16.5, Alkaline Phosphatase 51.3 L, Total Protein 6.91, Albumin 4.00, Globulin 2.91, Albumin/Globulin Ratio 1.37 ASSESSMENT: Please see below. 1. Acute bronchitis 2. Chronic lung disease 3. Acute respiratory failure 4. Leg edema PLAN: 1. Omnicef 300mg BID for 7 days 2. Rocephin 1 gram IM today 3. Prednisone dose to taper. 4. Continue Home Medication 5. Discharge home 6. See back in the office next weeks. 7. Discontinue Norvasc Plan and coordination of the patient's care discussed in the presence of Websphere Commerce Consultant and nurse. SCRIBED BY: Valentin VELEZ scribed while in presence of service performed by Dr. Schulte/Margaret Hutchinson APRN on 12/18/19 ([id number])
[2019-12-18] MEDS ORDERED: ROCEPHIN 1 GM VIAL IM ONE (09:00)
[2019-12-18] MEDS ORDERED: LIDOCAINE HCL 1% SDV IM ONE (09:00)
[2019-12-18 09:11] VITALS: BP 164/82
[2019-12-18] MEDS ORDERED: NORVASC PO SCH (09:30)
[2019-12-18] MEDS: ZOVIRAX PO SCH (09:53)
[2019-12-18] MEDS: K-DUR PO SCH (09:53)
[2019-12-18] MEDS: FLOMAX PO SCH (09:53)
[2019-12-18] MEDS: CATAPRES PO SCH (09:53)
[2019-12-18] MEDS: PREDNISONE PO SCH (09:53)
[2019-12-18] MEDS: XANAX PO SCH (09:53)
[2019-12-18] MEDS: COZAAR PO SCH (09:54)
[2019-12-18] MEDS: MUCINEX PO SCH (09:54)
[2019-12-18] MEDS: MIRALAX PO SCH (09:54)
[2019-12-18] MEDS: LEXAPRO PO SCH (09:54)
[2019-12-18] MEDS: SYMBICORT 160-4.5 MCG INHALER IH SCH (09:57)
[2019-12-18] MEDS: LOTRISONE 45 GM TP SCH (09:58)
[2019-12-18] MEDS: FLONASE NAS SCH (09:58)
[2019-12-18] MEDS: [UNRECOGNIZED DRUG - OTHER] PO SCH (10:09)
--- NOTE | 2019-12-18 11:46 | CM.DICTOOL ---
ADMISSION: 12/14/19 16:11 DISCHARGE: DECEMBER 18, 2019 DATE OF SERVICE: 12/18/19 ACUTE BRONCHITIS CHRONIC LUNG DISEASE ACUTE RESPIRATORY FAILURE/ COR PULMONALE LEG EDEMA DERMATITIS TO LEGS HYPERTENSION HX: CHRONIC BRONCHITIS ACUTE BRONCHITIS CORONARY ARTERY DISEASE PVC/ PAC VENTRICULAR FREQ. PALPATATIONS SYMPTOMATIC BRADYCARDIA GENERAL ANXIETY DISORDER POLYCYTHEMIA - DR. FRIAS HYPERTENSION COPD. OXYGEN DEPENDENT, TRILOGY AT HOME AT NIGHT SLEEP APNEA MULTIPLE PULMONARY NODULES - DR. MAR ACUTE COPD EXACERBATION BERNY DJD OF LUMBAR SPINE RT SCIATICA/ HIP PAIN DERMATITIS/ FOLLICULITIS MAX SINUSITIS WITH H/A BPH - DR. QUINTANILLA A1C -5.5 ON 11/09/2019 DRY EYES SURGICAL HISTORY: CARDIAC STENT PLACEMENT- 1999 BILATERAL CATARACTS - 2014 LAST VITALS Temp Pulse Resp BP Pulse Ox 98.4 F 53 L 20 164/82 H 96 12/18/19 05:46 12/18/19 05:46 12/18/19 05:46 12/18/19 09:10 12/18/19 05:46 TAKE THESE MEDICATIONS AT HOME Acyclovir (Acyclovir 200 Mg Capsule) 400 mg PO DAILY [facility] Last Admin: 12/17/19 09:14 Dose: 400 mg Documented by: Albuterol Sulfate (Albuterol Sulfate (Ventolin Hfa) 18 Gm 1 Puff With Spacer) 2 puff EVERY 4-6 HRS PRN -- ( HOME MED) Last Admin: 12/18/19 04:55 Dose: 2 puff Documented by: Alprazolam (Alprazolam 0.5 Mg Tablet) 0.5 mg PO BID [facility] Last Admin: 12/17/19 20:17 Dose: 0.5 mg Documented by: Amlodipine Besylate (Amlodipine Besylate 5 Mg Tablet) 5 mg PO BID [facility] Aspirin (Aspirin 81 Mg Tablet.) 81 mg PO BEDTIME [facility] Last Admin: 12/17/19 20:17 Dose: 81 mg Documented by: Clonidine (Clonidine Hcl 0.1 Mg Tablet) 0.2 mg PO BID [facility] Last Admin: 12/17/19 20:17 Dose: 0.2 mg Documented by: Clotrimazole (Clotrimazole/Betamethasone 45 Gm Cream) 1 applic TP BID [facility] FOR 5 MORE DAYS THEN PRN -- ( NEW) Last Admin: 12/17/19 20:16 Dose: 1 applic Documented by: Escitalopram Oxalate (Escitalopram Oxalate 10 Mg Tablet) 10 mg PO DAILY [facility] Last Admin: 12/17/19 09:15 Dose: 10 mg Documented by: Fluticasone Propionate (Fluticasone Propionate 16 Gm Nasal [place]) 2 spray MICHAEL DAILY [facility] Last Admin: 12/17/19 09:15 Dose: 2 spray Documented by: Furosemide (Furosemide 20 Mg Tablet) 20 mg PO daily 5 DAYS A WEEK PRN FOR LEG EDEMA -- ( NEW ) Last Admin: 12/18/19 05:55 Dose: 40 mg Documented by: Guaifenesin (Guaifenesin 600 Mg Tablet.Er) 1,200 mg PO BEDTIME [facility] Last Admin: 12/17/19 20:17 Dose: 1,200 mg Documented by: Guaifenesin (Guaifenesin 600 Mg Tablet.Er) 600 mg PO DAILY [facility] Last Admin: 12/17/19 09:14 Dose: 600 mg Documented by: Losartan Potassium (Losartan Potassium 100 Mg Tablet) 100 mg PO DAILY [facility] Last Admin: 12/17/19 09:14 Dose: 100 mg Documented by: Non-Formulary Medication (Non-Formulary) CBD 3 drop PO BID [facility] Last Admin: 12/17/19 20:18 Dose: Not Given Documented by: Pantoprazole Sodium (Pantoprazole Sodium 40 Mg Tablet.Dr) 40 mg PO QDAC [facility] Last Admin: 12/18/19 05:56 Dose: 40 mg Documented by: Polyethylene Glycol (Polyethylene Glycol 17 Gm Powd.Pack) 17 gm PO DAILY [facility] Last Admin: 12/17/19 09:13 Dose: 17 gm Documented by: Potassium Chloride (Potassium Chloride 10 Meq Tab) 10 meq PO DAILY WITH [facility] Last Admin: 12/17/19 17:23 Dose: 20 meq Documented by: Prednisone (Prednisone 20 Mg Tablet) 20 mg PO DAILY WM X 3 DAYS THEN, 10 MG PO X 3 DAYS THEN, 5 MG PO X 3 DAYS THEN D/C Last Admin: 12/17/19 09:14 Dose: 20 mg Documented by: Tamsulosin HCl (Tamsulosin Hcl 0.4 Mg Cap.Er.24h) 0.4 mg PO DAILY [facility] Last Admin: 12/17/19 09:14 Dose: 0.4 mg Documented by: OMNICEF 300 MG PO BID X 7 DAYS -- ( NEW) ALBUTEROL SULFATE 1 VIAL NEBULIZER BID BUDESONIDE 0.5 MG NEBULIZER BID STIOLTO RESPIMAT HFA 2 PUFFS DAILY ALLERGIES levofloxacin [From Levaquin] Adverse Reaction (Verified 11/02/19 10:25) DISCONTINUED MEDICATIONS ASMANEX HFA ( ALTERNATIVE GIVEN DUE TO COST) NEW PRESCRIPTIONS: OMNICEF 300 MG PO BID X 7 DAYS ( START 12/19/2019 ) PREDNISONE ( START 12/19/2019 ) 20 MG PO DAILY X 3 DAYS THEN, 10 MG PO DAILY X 3 DAYS, 5 MG PO DAILY X 3 DAYS THE STOP LOTRISONE TOPICAL TO LEGS BID X 5 MORE DAYS THEN PRN ( USE THIS PM) LASIX 20 MG PO DAILY 5 DAYS A WEEK PRN FOR LEG EDEMA POTASSIUM 10 MEQ PO DAILY WITH LASIX SMOKING: NON - APPLICABLE DISEASE SPECIFIC EDUCATION: ACUTE BRONCHITIS COPD HYPERTENSION LEG EDEMA COVID OMNICEF PREDNISONE LASIX POTASSIUM LAB REVIEW: 12/18/19 05:27 12/18/19 05:27 12/18/19 05:27: WBC 8.76, RBC 5.06, Hgb 16.4, Hct 48.4, MCV 95.7 H, MCH 32.4 H, MCHC 33.9, RDW Coeff of Bhaskar 13.1, Plt Count 194, Immature Gran % (Auto) 0.2, Neut % (Auto) 65.9, Lymph % (Auto) 24.5, [place] % (Auto) 9.2, Eos % (Auto) 0.1, Baso % (Auto) 0.1, Neut # (Auto) 5.8, Lymph # (Auto) 2.2, [place] # (Auto) 0.8, Eos # (Auto) 0.0, Baso # (Auto) 0.0, Immature Gran # (Auto) 0.0 12/18/19 05:27: Sodium 132.5 L, Potassium 3.86, Chloride 95.5 L, Carbon Dioxide 32.1 H, Anion Gap 8.76, BUN 20.5 H, Creatinine 1.10, Estimated GFR (MDRD) 64.00, BUN/Creatinine Ratio 18.63, Glucose 95.8, Calcium 9.08, Total Bilirubin 0.63, AST 21.6, ALT 16.5, Alkaline Phosphatase 51.3 L, Total Protein 6.91, Albumin 4.00, Globulin 2.91, Albumin/Globulin Ratio 1.37 PLAN: DISCHARGE HOME TODAY: WEDNESDAY, DECEMBER 18, 2019 . LIVES ALONE INDEPENDENTLY, DTR LIVES NEXT TO HIM DIET : LOW SODIUM, 2 GRAMS ACTIVITY: UP TOLERATED. GET UP THROUGHOUT THE DAY WITH FREQUENT REST PERIODS. STAY HOME AND INDOORS UNTIL RELEASED BY DOCTOR. WEAR A FACIAL COVERING AND RECOGNIZE SOCIAL DISTANCING IF HAVE TO GET OUT. ELEVATE LEGS MUCH POSSIBLE WHEN SITTING OXYGEN : USE 2 L/M PER N/C CONTINUOS NEBULIZERS ORDERED SMART VEST ORDERED TRILOGY SYSTEM AT NIGHT DIRECTED PER MAXIMUS, , TALKED WITH OSIRIS AND A RT IS TO FOLLOW UP IN THE HOME FOLLOW UP: SEE DR. SCHULTE/ HERNESTO ANDERSON APRN/ LUIS HERNANDES APRN IN THE OFFICE ON DECEMBER 24, 2019 @ [address] MAR AT THE RESPIRATORY CLINIC AT [facility] [place] AND NEEDED CODE STATUS: DO NOT RESUSCITATE MR. DELGADO REMAINS ALERT AND ORIENTED X 4. UP TOLERATED WITH O2 @ 2 L/M PER N/C. DOES HAVE ORTHOPNEA AND EXERTIONAL DYSPNEA. HE STATES ALL OF THIS HAS IMPROVED. HE NO LONGER HAS EDEMA TO HIS LEGS, HE DOES ELEVATE NOW. SLIGHT CLEAR TO WHITE SPUTUM AT TIMES. WAS HAVING SOME LT UPPER CHEST AND SIDE PAIN WHEN HE COUGHED, THIS HAS SUBSIDED. NUTRITIONAL AND FLUID INTAKE GOOD. PETECHIAE/RASH TO LEGS HAVE IMPROVED AND HAS NOT BEEN ITCHING SINCE LOTRISONE CREAM WAS INTRODUCED. CONTINENT OF BOWEL AND BLADDER. LAST BM 12/15. HIS DTR LIVES NEXT TO HIM AND ASSIST WHEN NEEDED. 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 MR. DELGADO STATED DR. MAR TOLD HIM HE HAS HIM ON THE RESPIRATORY MEDS TO MANAGE HIS COPD AND DOES NOT HAVE TO SEE HIM UNTIL THE SPRING. MD HERNESTO CISSE APRN ALYCE HANNAN, APRN
--- NOTE | 2019-12-21 08:55 | DS ---
DATE OF SERVICE: 12/18/19 FINAL DIAGNOSIS: 1. ACUTE BRONCHITIS 2. CHRONIC LUNG DISEASE 3. ACUTE RESPIRATORY FAILURE/ COR PULMONALE 4. LEG EDEMA 5. DERMATITIS TO LEGS 6. HYPERTENSION HX: 7. CHRONIC BRONCHITIS 8. ACUTE BRONCHITIS 9. CORONARY ARTERY DISEASE 10. PVC/PAC 11. VENTRICULAR FREQ. 12. PALPATATIONS 13. SYMPTOMATIC BRADYCARDIA 14. GENERAL ANXIETY DISORDER 15. POLYCYTHEMIA - DR. FRIAS 16. HYPERTENSION 17. COPD. OXYGEN DEPENDENT, TRILOGY AT HOME AT NIGHT 18. SLEEP APNEA 19. MULTIPLE PULMONARY NODULES - DR. MAR 20. ACUTE COPD EXACERBATION 21. BERNY 22. DJD OF LUMBAR SPINE 23. RT SCIATICA/HIP PAIN 24. DERMATITIS/FOLLICULITIS 25. MAX SINUSITIS WITH H/A 26. BPH - DR. QUINTANILLA 27. A1C -5.5 ON 11/09/2019 28. DRY EYES SURGICAL HISTORY: 29. CARDIAC STENT PLACEMENT- 1999 30. BILATERAL CATARACTS - 2014 LAST VITALS Temp Pulse Resp BP Pulse Ox 98.4 F 53 L 20 164/82 H 96 12/18/19 05:46 12/18/19 05:46 12/18/19 05:46 12/18/19 09:10 12/18/19 05:46 DISCHARGE INSTRUCTIONS: 1. DISCHARGE HOME TODAY: SATURDAY, DECEMBER 18, 2019 . LIVES ALONE INDEPENDENTLY, DTR LIVES NEXT TO HIM. 2. MD FOLLOW UP: SEE DR. GONZALEZ/HERNESTO ANDERSON APRN/ LUIS HERNANDES APRN IN THE OFFICE ON DECEMBER 24, 2019 @ 1000 ON SATURDAY, TO SEE DR. MAR AT THE RESPIRATORY CLINIC AT [facility] [place] AND NEEDED. 3. OXYGEN : USE 2 L/M PER N/C CONTINUOUS, NEBULIZERS ORDERED, SMART VEST ORDERED. TRILOGY SYSTEM AT NIGHT DIRECTED PER MAXIMUS, , TALKED WITH OSIRIS AND A RT IS TO FOLLOW UP IN THE HOME. MEDICATIONS AT DISCHARGE: Acyclovir (Acyclovir 200 Mg Capsule) 400 mg PO DAILY [facility] Last Admin: 12/17/19 09:14 Dose: 400 mg Documented by: Albuterol Sulfate (Albuterol Sulfate (Ventolin Hfa) 18 Gm 1 Puff With Spacer) 2 puff EVERY 4-6 HRS PRN -- ( HOME MED) Last Admin: 12/18/19 04:55 Dose: 2 puff Documented by: Alprazolam (Alprazolam 0.5 Mg Tablet) 0.5 mg PO BID [facility] Last Admin: 12/17/19 20:17 Dose: 0.5 mg Documented by: Amlodipine Besylate (Amlodipine Besylate 5 Mg Tablet) 5 mg PO BID [facility] Aspirin (Aspirin 81 Mg Tablet.) 81 mg PO BEDTIME [facility] Last Admin: 12/17/19 20:17 Dose: 81 mg Documented by: Clonidine (Clonidine Hcl 0.1 Mg Tablet) 0.2 mg PO BID [facility] Last Admin: 12/17/19 20:17 Dose: 0.2 mg Documented by: Clotrimazole (Clotrimazole/Betamethasone 45 Gm Cream) 1 applic TP BID [facility] FOR 5 MORE DAYS THEN PRN -- ( NEW) Last Admin: 12/17/19 20:16 Dose: 1 applic Documented by: Escitalopram Oxalate (Escitalopram Oxalate 10 Mg Tablet) 10 mg PO DAILY [facility] Last Admin: 12/17/19 09:15 Dose: 10 mg Documented by: Fluticasone Propionate (Fluticasone Propionate 16 Gm Nasal [place]) 2 spray MIHCAEL DAILY [facility] Last Admin: 12/17/19 09:15 Dose: 2 spray Documented by: Furosemide (Furosemide 20 Mg Tablet) 20 mg PO daily 5 DAYS A WEEK PRN FOR LEG EDEMA -- ( NEW ) Last Admin: 12/18/19 05:55 Dose: 40 mg Documented by: Guaifenesin (Guaifenesin 600 Mg Tablet.Er) 1,200 mg PO BEDTIME [facility] Last Admin: 12/17/19 20:17 Dose: 1,200 mg Documented by: Guaifenesin (Guaifenesin 600 Mg Tablet.Er) 600 mg PO DAILY [facility] Last Admin: 12/17/19 09:14 Dose: 600 mg Documented by: Losartan Potassium (Losartan Potassium 100 Mg Tablet) 100 mg PO DAILY [facility] Last Admin: 12/17/19 09:14 Dose: 100 mg Documented by: Non-Formulary Medication (Non-Formulary) CBD 3 drop PO BID [facility] Last Admin: 12/17/19 20:18 Dose: Not Given Documented by: Pantoprazole Sodium (Pantoprazole Sodium 40 Mg Tablet.) 40 mg PO QDAC [facility] Last Admin: 12/18/19 05:56 Dose: 40 mg Documented by: Polyethylene Glycol (Polyethylene Glycol 17 Gm Powd.Pack) 17 gm PO DAILY [facility] Last Admin: 12/17/19 09:13 Dose: 17 gm Documented by: Potassium Chloride (Potassium Chloride 10 Meq Tab) 10 meq PO DAILY [facility] Last Admin: 12/17/19 17:23 Dose: 20 meq Documented by: Prednisone (Prednisone 20 Mg Tablet) 20 mg PO DAILY WM X 3 DAYS THEN, 10 MG PO X 3 DAYS THEN, 5 MG PO X 3 DAYS THEN D/C Last Admin: 12/17/19 09:14 Dose: 20 mg Documented by: Tamsulosin HCl (Tamsulosin Hcl 0.4 Mg Cap.Er.24h) 0.4 mg PO DAILY [facility] Last Admin: 12/17/19 09:14 Dose: 0.4 mg Documented by: OMNICEF 300 MG PO BID X 7 DAYS -- ( NEW) ALBUTEROL SULFATE 1 VIAL NEBULIZER BID BUDESONIDE 0.5 MG NEBULIZER BID STIOLTO RESPIMAT HFA 2 PUFFS DAILY NEW PRESCRIPTIONS: OMNICEF 300 MG PO BID X 7 DAYS ( START 12/19/2019 ) PREDNISONE ( START 12/19/2019 ) 20 MG PO DAILY X 3 DAYS THEN, 10 MG PO DAILY X 3 DAYS, 5 MG PO DAILY X 3 DAYS THE STOP LOTRISONE TOPICAL TO LEGS BID X 5 MORE DAYS THEN PRN ( USE THIS PM) LASIX 20 MG PO DAILY 5 DAYS A WEEK PRN FOR LEG EDEMA POTASSIUM 10 MEQ PO DAILY WITH LASIX DISCONTINUED MEDICATIONS: ASMANEX HFA ( ALTERNATIVE GIVEN DUE TO COST) DIET INSTRUCTIONS: LOW SODIUM, 2 GRAMS ACTIVITY: UP TOLERATED. GET UP THROUGHOUT THE DAY WITH FREQUENT REST PERIODS. STAY HOME AND INDOORS UNTIL RELEASED BY DOCTOR. WEAR A FACIAL COVERING AND RECOGNIZE SOCIAL DISTANCING IF HAVE TO GET OUT. ELEVATE LEGS MUCH POSSIBLE WHEN SITTING. SMOKING: NON - APPLICABLE DISEASE SPECIFIC EDUCATION: ACUTE BRONCHITIS COPD HYPERTENSION LEG EDEMA COVID OMNICEF PREDNISONE LASIX POTASSIUM HOSPITAL COURSE: 79-year-old white male presented initially in the office on 12/14/19 with complaints of cough, shortness of breath, lower extremity swelling. He was having to increase his oxygen to 4L nasal cannula, saturation 93%. He has history of chronic lung disease and is oxygen dependent. He is admitted with acute bronchitis, acute respiratory failure, leg edema. He was initially tested for Covid which has since came back negative. Chest x-ray showed emphysematous changes with vascular and granulomatous calcifications. He was given IV Lasix. His Norvasc was held. He was started on IV Solu-Cortef along with IV antibiotics, Rocephin and Zithromax. He was also given Ventolin and Symbicort scheduled throughout his hospital stay. He steadily improved. He reports improvement in shortness of breath and cough. Leg edema has resolved. 2D echo was done prior to discharge. The patient is stable and is requesting to go home. Temperature 98.4, pulse 53, respirations 20, BP 164/82, pulse ox 96. We will resume his home medications including the Norvasc. He will be sent home on Omnicef 300 p.o. b.i.d. for 7 days, Prednisone tapering dose for 20 p.o. daily times three then 10 mg p.o. daily times three and then 5 p.o. daily times three, then discontinued. We will also send him home with Lasix 20 mg p.o. daily for five days a week p.r.n. for leg edema, potassium 10 p.o. is to be given when taking Lasix as needed. The patient is encouraged to be up and about. He is back at his baseline at [facility]. Covid prevention discussed in detail. We will followup with him in the office next week. The patient was seen and examined with Dr. Gonzalez, plan was discussed. TIME SPENT: More than 60 minutes. [facility]
--- NOTE | 2019-12-22 08:25 | ECHO2D ---
Date of Exam:12/18/2019 Ordering Physician: DR. HART Room #: 116 Reason for Echo: SOB, HTN, COPD/CAD M-Mode Normal Adult Results LV Dimensions Normal Adult Results AoV Opening excursions >1.6 >1.6 LVEDD-base- 3.5-5.8 5.0 Ao root dimensions 2.0-3.7 3.5 LVESD-base- 3.1-4.6 L. Atrium dimensions 1.9-3.8 3.4 Post. Wall thickness 0.8-1.1 1.3 IV septum (thickness) 0.7-1.2 1.4 Post. Wall excursion 0.72-1.3 NORMAL Septal motion NORMAL Systolic motion R. Ventricular cavity 1.5-2.0 4.0 LVEF 60% 67% Paradoxical septal wall motion NORMAL 2-D : 2-D M Mode Echocardiogram was performed using apical four chamber and left parasternal long and short axis views. Mitral, tricuspid and aortic valves appear to be normal. Contractility of the left ventricle seems to be normal, so is the cavity size. Left atrial cavity size and aortic root appear to be normal. There is no pericardial effusion. There is no thrombus noted in the left ventricle or left atrial cavity. No mitral valve prolapse noted. ENLARGED RIGHT VENTRICLE CAVITY M-MODE: MV: NORMAL AV: NORMAL TV: NORMAL PV: CHAMBER SIZE: ENLARGED RIGHT VENTRICLE CAVITY WALL MOTION: NORMAL PERICARDIUM: NORMAL INTERPRETATION: 1. LEFT VENTRICULAR HYPERTROPHY 2. ENLARGED RIGHT VENTRICLE CAVITY 3. NORMAL LEFT VENTRICLE CONTRACTILITY 4. NORMAL VALVES MTDD
--- NOTE | 2019-12-23 11:52 | PN ---
12/14/2019: Level 5 12/15/2019: Intermediate 12/16/2019: Intermediate 12/17/2019: Intermediate 12/18/2019: D as in discharge MTDD
--- NOTE | 2019-12-23 11:52 | PN ---
DATE OF SERVICE: 12/18/2019 SUBJECTIVE: The patient was seen and examined today. Echo was done which shows LVH with normal LV contractility, RV cavity is enlarged. Leg edema has practically subsided. He is breathing a lot better. More or less under control. He was restarted on Norvasc. He is going to be discharged on same medication and in addition to that he is going to be on Lasix and Potassium as needed. At the time of discharge stable. The patient was explained that his main problem is advancing pulmonary disease deteriorated. TIME SPENT: More than 30 minutes. Plan and coordination of the patient's care discussed in the presence of nurse. NITIN
== END 2019-12-18 13:57 | disposition home or self-care (01) | DRG 189 ==
LOC: SCU 16:11 → MEDSURG B 12-16 05:15
PROVIDERS: ADMIT Internal Medicine; ATTEND Internal Medicine

== ENCOUNTER 2020-02-22 09:52 | Inpatient (IN) ==
[2020-02-22 10:04] VITALS: BMI 27.1
[2020-02-22] MEDS ORDERED: SOLU-MEDROL 125 MG IVP STA (10:32)
[2020-02-22] MEDS ORDERED: SODIUM CHLORIDE 1,000 ML IV STA (10:32)
[2020-02-22] MEDS ORDERED: VENTOLIN HFA (PER PUFF-WITH SPACER) IH STA (10:41)
[2020-02-22] MEDS ORDERED: ATROVENT HFA INHALER (PER PUFF-WITH SPACER) IH STA (10:42)
[2020-02-22] MEDS ORDERED: COMBIVENT RESPIMAT INHALER IH SCH (11:00)
[2020-02-22 11:02] LABS: ABG BASE EXCESS 1.7 (-2.0-2.0); ABG HCO3 27.1 (22.0-26.0); ABG OXYGEN SATURATION 92.5 % (95-100); ABG PH 7.36 (7.35-7.45); ABG TCO2 28.6 (22.0-28.0)
--- NOTE | 2020-02-22 11:03 | DI ---
EXAM: Chest two views HISTORY: Chronic obstructive pulmonary disease, 2 days of difficulty breathing, evaluate for pneumon ia COMPARISON: 12/14/2019 TECHNIQUE: Two views of the chest were performed FINDINGS: Normal heart size. Normal mediastinal contour.Old granulomatous disease with calcified me diastinal lymph nodes/granulomas. Lungs are hyperexpanded. Unchanged right greater than left basila r linear - reticular opacities likely representing scar. No consolidation. No pleural effusion or p neumothorax. No acute osseous abnormality. IMPRESSION: Chronic obstructive pulmonary disease without air space disease.
[2020-02-22 11:18] LABS: BASOPHILS % (AUTO) 0.6 % (0.0-3.0); EOSINOPHILS # (AUTO) 0.5 K/ul (0.0-0.7); EOSINOPHILS % (AUTO) 7.8 % (0.0-7.0); HEMOGLOBIN 15.7 g/dl (14.0-18.0); IMMATURE GRANULOCYTE % (AUTO) 0.3 % (0.0-5.0); LYMPHOCYTES # (AUTO) 1.7 K/uL (0.60-3.4); LYMPHOCYTES % (AUTO) 25.2 (10.0-50.0); MEAN CORPUSCULAR HEMOGLOBIN 32.6 pg (27.0-31.0); MEAN CORPUSCULAR HGB CONC 34.9 (31.8-35.4); MEAN CORPUSCULAR VOLUME 93.6 fl (80.0-94.0); MONOCYTES # (AUTO) 0.6 K/uL (0.4-2.0); MONOCYTES % (AUTO) 8.7 (0-10); NEUTROPHILS # (AUTO) 3.8 K/ul (2.0-6.9); NEUTROPHILS % (AUTO) 57.4 % (42.2-75.2); PLATELET COUNT 203 10^3/uL (140-440); RDW COEFFICIENT OF VARIATION 12.6 % (11.6-14.8); RED BLOOD COUNT 4.81 10^6/ul (4.70-6.10); WHITE BLOOD COUNT 6.55 K/ul (4.2-10.2)
--- NOTE | 2020-02-22 11:26 | ED.PDOC ---
General ED Provider: Dr. MARIS DIAZ Chief Complaint: Respiratory Complaint Stated Complaint: Weakness, Hypoxemia, difficulty breathing: COPD, Emphysema Time Seen by Physician: 10:40 Mode of Arrival: Walk-In Information Source: Patient Primary Care Provider: HAILEY SCHULTE Nursing and Triage Documentation Reviewed and Agree: Yes Does patient meet sepsis criteria?: No System Inflammatory Response Syndrome: Not Applicable Sepsis Protocol: For patient's 13 years and over: Temp is 96.8 and below OR 101 and greater Pulse >90 BPM Resp >20/minute Acutely Altered Mental Status Are patient's symptoms suggestive of a new infection, such as: -Pneumonia -Skin, Soft Tissue -Endocarditis -UTI -Bone, Joint Infection -Implantable Device -Acute Abdominal Infection -Wound Infection -Meningitis -Blood Stream Catheter Infection -Unknown Miscellaneous Complaint Exam Physical Examination Complaint/Exam Onset/Duration: three days difficulty breathing / wheezing Symptoms Are: Worse Timing: Constant Episodes Lasting: Days Initial Severity: Mild Current Severity: Severe Location: chest Character: breathing w effort Aggravating: exertion Alleviating: rest improves condition, but does not resolve it. Associated Signs and Symptoms: wheezing Related History: Reports No other known history Specific Findings: COPD pt on O2 at home. Review of Systems Review Of Systems Constitutional: Reports Weakness Eyes: Reports No symptoms Ears, Nose, Mouth, Throat: Reports No symptoms Respiratory: Reports Short of air and Wheezing Cardiac: Reports No symptoms GI: Reports No symptoms : Reports No symptoms Musculoskeletal: Reports Other Skin: Reports No symptoms Neurological: Reports No symptoms Endocrine: Reports No symptoms Hematologic/Lymphatic: Reports No symptoms All Other Systems: Reviewed and Negative [facility] Medical History (Updated 02/22/20 @ 12:51 by MARIS DIAZ) Blood disease Chronic obstructive pulmonary disease Gastroesophageal reflux disease Hypertension Seasonal allergies Stage 3 chronic kidney disease Family History Mother Obstetric anesthesia problems Emphysema of lung Social History Smoking and tobacco status: Former smoker History of recent travel: No Surgical History Status post tonsillectomy Physical Exam Physical Exam Appearance: Reports Ill-appearing Ill-appearing: Moderate Pain Distress: None Eyes: Reports ABDIAS, EOMI and Conjunctiva clear ENT: Reports Ears normal and Nose normal Neck: Nonsupple Respiratory: Reports Airway patent and Wheezes Cardiovascular: Reports RRR and Pulses normal GI/: Reports Nontender and Bowel sounds normal Musculoskeletal: Reports Limited ROM and Limited strength Skin: Reports Warm, Dry and Pale Neurological: Reports Sensation intact, Motor intact and Cranial nerves intact Psychiatric: Reports Depressed Interpretation Radiology Interpretation Radiology Interpretation By: Radiologist Radiology Results: Positive Exam Interpreted: CT Scan Xray Comments: COPD w no air spaces. Hyperinflated lungs. EKG Interpretation Time of EKG #1: 10:47 Rate: Normal Rhythm: Sinus Ectopy: None [place]: NL ST Segment: Normal Interpretation: Normal EKG except for a few fusion beats. Re-Evaluation Re-Evaluation Time of Re-Evaluation: 11:40 Status: Improved Vital Signs Stable: Yes Pain Level: 0 Appearance: NAD Lungs: Other Skin: Warm and Dry Neuro: Alert and Oriented X3 CV: RRR Additional Comments: Wheezing much improved s/p methylprednisolone IV. Physician Notification Case Discussed Physician Notified: Igor Schulte MD Time of Notification: 12:28 Critical Care Note Critical Care Note Total Critical Care Time (mins): 30 Course Course Hematology/Chemistry: 02/22/20 11:12 02/22/20 11:12 Orders, Labs, Meds: Lab Review 02/22/20 02/22/20 02/22/20 10:45 11:12 11:12 WBC 6.55 RBC 4.81 Hgb 15.7 Hct 45.0 MCV 93.6 MCH 32.6 H MCHC 34.9 RDW Coeff of Bhaskar 12.6 Plt Count 203 Immature Gran % (Auto) 0.3 Neut % (Auto) 57.4 Lymph % (Auto) 25.2 [place] % (Auto) 8.7 Eos % (Auto) 7.8 H Baso % (Auto) 0.6 Neut # (Auto) 3.8 Lymph # (Auto) 1.7 [place] # (Auto) 0.6 Eos # (Auto) 0.5 Baso # (Auto) 0.0 Immature Gran # (Auto) 0.0 Puncture Site R rad O2 Saturation 92.5 L ABG pH 7.36 ABG pCO2 48.0 H ABG pO2 68.0 L ABG HCO3 27.1 H ABG Total CO2 28.6 H ABG Base Excess 1.7 Albino Test + O2 Delivery Device Nc Oxygen Liter Flow 2.00 Sodium 133.1 L Potassium 4.23 Chloride 98.1 Carbon Dioxide 28.4 Anion Gap 10.83 BUN 17.2 Creatinine 1.16 H Estimated GFR (MDRD) 61.00 BUN/Creatinine Ratio 14.82 Glucose 95.0 Calcium 9.83 Total Bilirubin 0.79 AST 30.2 ALT 24.0 Alkaline Phosphatase 64.6 Total Protein 7.41 Albumin 4.37 Globulin 3.04 Albumin/Globulin Ratio 1.43 Orders Category Date Time Status ABG DRAW REQUEST Stat CARDIO 02/22/20 10:31 Completed EKG-(ED ONLY) Stat CARDIO 02/22/20 10:51 Completed METERED DOSE INHALATION Routine CARDIO 02/22/20 10:42 Completed METERED DOSE INHALATION Routine CARDIO 02/22/20 10:43 Completed ABG Stat LAB 02/22/20 10:45 Completed CBC W/ AUTO DIFF Stat LAB 02/22/20 11:12 Completed COMPREHENSIVE METABOLIC PANEL Stat LAB 02/22/20 11:12 Completed RESPIRATORY PANEL 2.1 (PCR) Stat LAB 02/22/20 Ordered Albuterol Inhaler(with Spacer) [Ventolin Hfa (Per Puff- MEDS 02/22/20 10:41 Discontinued with Spacer)] 2 puff IH ONCE STA Ipratropium Inhaler(Spacer) [Atrovent Hfa Inhaler (Per MEDS 02/22/20 10:42 Discontinued Puff-with Spacer)] 2 puff IH ONCE STA Methylprednisolone Sod Succ/Pf [Solu-Medrol 125 mg] MEDS 02/22/20 10:32 Discontinued 125 mg IVP ONCE STA Sodium Chloride 0.9% [Sodium Chloride] 1,000 ml MEDS 02/22/20 10:32 Discontinued IV BOLUS CHEST, 2 VIEWS PA & LAT Stat RADS 02/22/20 10:30 Completed Medications Discontinued Medications Generic Name Dose Route Start Last Admin Trade Name Freq PRN Reason Stop Dose Admin Albuterol Sulfate 2 puff 02/22/20 10:41 02/22/20 11:06 Albuterol Sulfate (Ventolin Hfa) 18 Gm 1 Puff With Spacer IH 02/22/20 10:42 2 puff ONCE STA Administration Sodium Chloride 1,000 mls @ 1,000 mls/hr 02/22/20 10:32 02/22/20 11:19 Sodium Chloride IV 02/22/20 11:31 1,000 mls/hr BOLUS STA Administration Ipratropium [place] 2 puff 02/22/20 10:42 02/22/20 11:05 Ipratropium [place] 12.9 Gm Hfa Inhaler Per Puff With Spacer IH 02/22/20 10:43 2 puff ONCE STA Administration Methylprednisolone Sodium Succinate 125 mg 02/22/20 10:32 02/22/20 11:19 Methylprednisolone Sod Succ/Pf 125 Mg/2 Ml Vial IVP 02/22/20 10:33 125 mg ONCE STA Administration Vital Signs: Temp Pulse Resp BP Pulse Ox 02/22/20 09:55 96.8 F L 90 20 153/81 H 94 L Discharge Plan Discharge Patient Disposition: ADMITTED INPATIENT Discharge Problem: Hypoxemia, Weakness COPD (chronic obstructive pulmonary disease) Qualifiers: COPD type: COPD with acute exacerbation Qualified Code(s): J44.1 - Chronic obstructive pulmonary disease with (acute) exacerbation Emphysema of lung Qualifiers: Emphysema type: unspecified Qualified Code(s): J43.9 - Emphysema, unspecified Prescriptions: No Action aspirin 81 MG tablet,delayed release (DR/EC) 81 mg PO BEDTIME RF: 0 escitalopram oxalate 10 MG tablet 10 mg PO DAILY RF: 0 polyethylene glycol 3350 [Miralax] 17 gram Powder In Packet 17 g PO DAILY RF: 0 budesonide 0.5 mg/2 mL Suspension For Nebulization 0.5 mg inhalation DAILY RF: 0 fluticasone propionate [Flonase] 50 mcg/actuation [place],Suspension 2 spray INTRANASAL DAILY RF: 0 guaifenesin [Mucinex] 600 mg Tablet Extended Release 12hr 600 mg PO DAILY RF: 0 Non-Formulary 3 drp PO BID RF: 0 alprazolam [Xanax] 0.5 mg Tablet 0.5 mg PO BID RF: 0 losartan [Cozaar] 100 mg Tablet 100 mg PO DAILY RF: 0 tamsulosin 0.4 MG capsule 0.4 mg PO DAILY RF: 0 albuterol sulfate [Ventolin HFA] 8 GM HFA aerosol inhaler 2 puff inhalation Q4-6H PRN (Reason: shortness of air) RF: 0 Stiolto Respimat 4 GM mist 2 puff inhalation DAILY RF: 0 pantoprazole [Protonix] 40 MG tablet,delayed release (DR/EC) 40 mg PO DAILY RF: 0 albuterol sulfate 1 VIAL solution for nebulization 1 vial NEB BID RF: 0 clonidine HCl 0.2 mg Tablet 0.2 mg PO BID RF: 0 amlodipine 5 MG tablet 5 mg PO BID RF: 0 ED Provider: HAILEY SCHULTE Physician Progress Note: Pt wheezing greatly diminished s/p methylprednisolone 125 mg IV. Discussed pt's findings w Dr. Mart Schulte, who will admit pt. Resp panel Covid test ordered. Dx: COPD, Emphysema, Weakness []
[2020-02-22 11:58] LABS: ALBUMIN 4.37 g/dL (3.5-5.0); ALKALINE PHOSPHATASE 64.6 U/L (56-119); ASPARTATE AMINO TRANSFERASE 30.2 U/L (17-59); BILIRUBIN,TOTAL 0.79 mg/dL (0.2-1.3); BLOOD UREA NITROGEN 17.2 mg/dL (9-20); CALCIUM 9.83 mg/dL (8.4-10.2); CARBON DIOXIDE 28.4 mmol/L (22-30.0); CHLORIDE 98.1 mmol/L (98-107); CREATININE 1.16 mg/dL (0.60-1.10); POTASSIUM 4.23 mmol/L (3.5-5.1); SODIUM 133.1 mmol/L (134.5-145); TOTAL PROTEIN 7.41 g/dL (6.3-8.2)
--- NOTE | 2020-02-22 14:15 | ED.PDOC ---
General ED Provider: Dr. MARIS DIAZ Chief Complaint: Respiratory Complaint Stated Complaint: difficulty breathing, chronic COPD Time Seen by Physician: 10:30 Mode of Arrival: Walk-In Information Source: Patient Primary Care Provider: HAILEY SCHULTE Nursing and Triage Documentation Reviewed and Agree: Yes Does patient meet sepsis criteria?: No System Inflammatory Response Syndrome: Not Applicable Sepsis Protocol: For patient's 13 years and over: Temp is 96.8 and below OR 101 and greater Pulse >90 BPM Resp >20/minute Acutely Altered Mental Status Are patient's symptoms suggestive of a new infection, such as: -Pneumonia -Skin, Soft Tissue -Endocarditis -UTI -Bone, Joint Infection -Implantable Device -Acute Abdominal Infection -Wound Infection -Meningitis -Blood Stream Catheter Infection -Unknown Miscellaneous Complaint Exam Physical Examination Complaint/Exam Onset/Duration: chronic COPD, worse past two days Symptoms Are: Worse Timing: Constant Episodes Lasting: Weeks Initial Severity: Moderate Current Severity: Severe Location: mid chest, difficulty breathing Character: "can't get air in and out." Aggravating: trying to take deep breaths Alleviating: rest (somewhat) Associated Signs and Symptoms: anxiety, stress Related History: Reports No other known history Specific Findings: wheezes 3+ Differential Diagnoses: COPD, emphysema, pulmonary infection Review of Systems Review Of Systems Constitutional: Reports Other Eyes: Reports No symptoms Ears, Nose, Mouth, Throat: Reports No symptoms Respiratory: Reports Short of air and Wheezing Cardiac: Reports No symptoms GI: Reports No symptoms : Reports No symptoms Musculoskeletal: Reports No symptoms Skin: Reports No symptoms Neurological: Reports No symptoms Endocrine: Reports No symptoms Hematologic/Lymphatic: Reports No symptoms All Other Systems: Reviewed and Negative [facility] Medical History Blood disease Chronic obstructive pulmonary disease Gastroesophageal reflux disease Hypertension Seasonal allergies Stage 3 chronic kidney disease Family History Mother Obstetric anesthesia problems Emphysema of lung Social History Smoking and tobacco status: Former smoker History of recent travel: No Surgical History Status post tonsillectomy Physical Exam Physical Exam Appearance: Reports Ill-appearing Ill-appearing: Severe Pain Distress: None Eyes: Reports ABDIAS and EOMI ENT: Reports Ears normal, Nose normal and Dry mucosa Neck: Nonsupple Respiratory: Reports Airway patent and Wheezes Cardiovascular: Reports RRR and Pulses normal GI/: Reports Soft, Nontender and Bowel sounds hypoactive Musculoskeletal: Reports Limited ROM and Limited strength Skin: Reports Warm, Dry and Pale Neurological: Reports Sensation intact, Motor intact, Reflexes intact, Cranial nerves intact and Oriented Psychiatric: Reports Anxious and Depressed Physician Notification Case Discussed Physician Notified: Dr. Mart Schulte Time of Notification: 12:30 Critical Care Note Critical Care Note Total Critical Care Time (mins): 60 Course Course Hematology/Chemistry: 02/24/20 04:00 02/24/20 04:00 Orders, Labs, Meds: Lab Review 02/22/20 02/22/20 02/22/20 10:45 11:12 11:12 WBC 6.55 RBC 4.81 Hgb 15.7 Hct 45.0 MCV 93.6 MCH 32.6 H MCHC 34.9 RDW Coeff of Bhaskar 12.6 Plt Count 203 Immature Gran % (Auto) 0.3 Neut % (Auto) 57.4 Lymph % (Auto) 25.2 [place] % (Auto) 8.7 Eos % (Auto) 7.8 H Baso % (Auto) 0.6 Neut # (Auto) 3.8 Lymph # (Auto) 1.7 [place] # (Auto) 0.6 Eos # (Auto) 0.5 Baso # (Auto) 0.0 Immature Gran # (Auto) 0.0 Puncture Site R rad O2 Saturation 92.5 L ABG pH 7.36 ABG pCO2 48.0 H ABG pO2 68.0 L ABG HCO3 27.1 H ABG Total CO2 28.6 H ABG Base Excess 1.7 Albino Test + O2 Delivery Device Nc Oxygen Liter Flow 2.00 Sodium 133.1 L Potassium 4.23 Chloride 98.1 Carbon Dioxide 28.4 Anion Gap 10.83 BUN 17.2 Creatinine 1.16 H Estimated GFR (MDRD) 61.00 BUN/Creatinine Ratio 14.82 Glucose 95.0 Calcium 9.83 Total Bilirubin 0.79 AST 30.2 ALT 24.0 Alkaline Phosphatase 64.6 Total Protein 7.41 Albumin 4.37 Globulin 3.04 Albumin/Globulin Ratio 1.43 Adenovirus (PCR) B. pertussis DNA (PCR) B.parapertussis DNA PCR C. pneumoniae DNA (PCR) Coronavirus OC43 (PCR) Coronavirus HKU1 (PCR) Coronavirus 229E (PCR) Coronavirus NL63 (PCR) Human Metapneumovir PCR Influenza Type A (PCR) Influenza B (RT-PCR) M. pneumoniae (PCR) Parainfluenza 1 (PCR) Parainfluenza 2 (PCR) Parainfluenza 3 (PCR) Parainfluenza 4 (PCR) RSV (PCR) Entero/Rhino (PCR) SARS-CoV-2 (PCR) 02/22/20 12:35 WBC RBC Hgb Hct MCV MCH MCHC RDW Coeff of Bhaskar Plt Count Immature Gran % (Auto) Neut % (Auto) Lymph % (Auto) [place] % (Auto) Eos % (Auto) Baso % (Auto) Neut # (Auto) Lymph # (Auto) [place] # (Auto) Eos # (Auto) Baso # (Auto) Immature Gran # (Auto) Puncture Site O2 Saturation ABG pH ABG pCO2 ABG pO2 ABG HCO3 ABG Total CO2 ABG Base Excess Albino Test O2 Delivery Device Oxygen Liter Flow Sodium Potassium Chloride Carbon Dioxide Anion Gap BUN Creatinine Estimated GFR (MDRD) BUN/Creatinine Ratio Glucose Calcium Total Bilirubin AST ALT Alkaline Phosphatase Total Protein Albumin Globulin Albumin/Globulin Ratio Adenovirus (PCR) Not detected B. pertussis DNA (PCR) Not detected B.parapertussis DNA PCR Not detected C. pneumoniae DNA (PCR) Not detected Coronavirus OC43 (PCR) Not detected Coronavirus HKU1 (PCR) Not detected Coronavirus 229E (PCR) Not detected Coronavirus NL63 (PCR) Not detected Human Metapneumovir PCR Not detected Influenza Type A (PCR) Not detected Influenza B (RT-PCR) Not detected M. pneumoniae (PCR) Not detected Parainfluenza 1 (PCR) Not detected Parainfluenza 2 (PCR) Not detected Parainfluenza 3 (PCR) Not detected Parainfluenza 4 (PCR) Not detected RSV (PCR) Not detected Entero/Rhino (PCR) Not detected SARS-CoV-2 (PCR) Not detected Orders Category Date Time Status ABG DRAW REQUEST Stat CARDIO 02/22/20 10:31 Completed EKG-(ED ONLY) Stat CARDIO 02/22/20 10:51 Completed METERED DOSE INHALATION Routine CARDIO 02/22/20 10:42 Active METERED DOSE INHALATION Routine CARDIO 02/22/20 10:43 Completed ABG COOX Stat LAB 02/22/20 10:45 Completed CBC W/ AUTO DIFF Stat LAB 02/22/20 11:12 Completed COMPREHENSIVE METABOLIC PANEL Stat LAB 02/22/20 11:12 Completed RESPIRATORY PANEL 2.1 (PCR) Stat LAB 02/22/20 12:35 Completed Albuterol Inhaler(with Spacer) [Ventolin Hfa (Per Puff- MEDS 02/22/20 10:41 Discontinued with Spacer)] 2 puff IH ONCE STA Ceftriaxone/D5w 1 gm Premix [Rocephin 1 gm/50 ml D5w] MEDS 02/22/20 14:00 Active 1 gm in 50 ml IV DAILY Ipratropium Inhaler(Spacer) [Atrovent Hfa Inhaler (Per MEDS 02/22/20 10:42 Discontinued Puff-with Spacer)] 2 puff IH ONCE STA Methylprednisolone Sod Succ/Pf [Solu-Medrol 125 mg] MEDS 02/22/20 10:32 Dis continued 125 mg IVP ONCE STA Sodium Chloride 0.9% [Sodium Chloride] 1,000 ml MEDS 02/22/20 10:32 Discontinued IV BOLUS CHEST, 2 VIEWS PA & LAT Stat RADS 02/22/20 10:30 Completed Medications Generic Name Dose Route Start Last Admin Trade Name Freq PRN Reason Stop Dose Admin Acetaminophen 650 mg 02/22/20 15:18 Acetaminophen 325 Mg Tablet PO Q4H PRN Mild Pain Albuterol Sulfate 2 puff 02/22/20 20:00 02/24/20 14:03 Albuterol Sulfate (Ventolin Hfa) 18 Gm 1 Puff With Spacer IH 2 puff RTTID BANDAR Administration Alprazolam 0.5 mg 02/22/20 21:00 02/24/20 09:37 Alprazolam 0.5 Mg Tablet PO 0.5 mg BID BANDAR Administration Amlodipine Besylate 5 mg 02/22/20 21:00 02/24/20 09:37 Amlodipine Besylate 5 Mg Tablet PO 5 mg BID BANDAR Administration Aspirin 81 mg 02/22/20 21:00 02/23/20 20:22 Aspirin 81 Mg Tablet.Dr PO 81 mg BEDTIME BANDAR Administration Atropine Sulfate 0.5 mg 02/22/20 19:37 Atropine Sulfate Inj 1 Mg/10 Ml Disp.Syrin IVP ONCE PRN Symptomatic Bradycardia Clonidine 0.2 mg 02/22/20 21:00 02/24/20 09:37 Clonidine Hcl 0.1 Mg Tablet PO 0.2 mg BID BANDAR Administration Enalaprilat 1.25 mg 02/22/20 16:24 Enalaprilat Dihydrate 1.25 Mg/Ml Vial IVP Q6H PRN Hypertensive Emergency Enoxaparin Sodium 30 mg 02/23/20 09:00 02/24/20 09:50 Enoxaparin Sodium 30 Mg/0.3 Ml Syr SUBCUT 30 mg DAILY BANDAR Administration Escitalopram Oxalate 10 mg 02/23/20 09:00 02/24/20 09:38 Escitalopram Oxalate 10 Mg Tablet PO 10 mg DAILY BANDAR Administration Fluticasone Propionate 2 spray 02/22/20 16:16 02/24/20 09:33 Fluticasone Propionate 16 Gm Nasal [place] MICHAEL 2 spray DAILY PRN Administration Nasal Congestion Guaifenesin 600 mg 02/22/20 21:00 02/24/20 09:37 Guaifenesin 600 Mg Tablet.Er PO 600 mg BID BANDAR Administration Hydrocortisone Sodium Succinate 125 mg 02/23/20 13:00 02/24/20 13:58 Hydrocortisone Sod Succ/Pf 250 Mg/2 Ml Vial IVP 125 mg Q8HR BANDAR Administration Hydroxyzine HCl 25 mg 02/22/20 19:37 Hydroxyzine Hcl 25 Mg/Ml Vial IM Q4H PRN Nausea/Vomiting/Restlessness CEFTRIAXONE/D5W 1 GM PREMIX 1 gm in 50 mls @ 75 mls/hr 02/22/20 14:00 02/24/20 09:38 Rocephin 1 Gm/50 Ml D5w IV 02/25/20 13:59 75 mls/hr DAILY BANDAR Administration Sodium Chloride 1,000 mls @ 75 mls/hr 02/22/20 15:30 02/23/20 00:24 Sodium Chloride IV 75 mls/hr .[id number] BANDAR Administration Losartan Potassium 100 mg 02/23/20 09:00 02/24/20 09:37 Losartan Potassium 100 Mg Tablet PO 100 mg DAILY BANDAR Administration Nitroglycerin 0.4 mg 02/22/20 19:37 Nitroglycerin 0.4 Mg Tab.Subl SL Q5MIN X 3 DOSES PRN Chest Pain Non-Formulary Medication 3 drop 02/22/20 21:00 02/24/20 11:13 Non-Formulary PO Not Given BID BANDAR Non-Formulary Medication 2 puff 02/23/20 09:00 02/24/20 09:33 Tiotropium-Olodaterol [Stiolto Respimat] IH 2 puff DAILY BANDAR Administration Pantoprazole Sodium 40 mg 02/23/20 06:30 02/24/20 06:01 Pantoprazole Sodium 40 Mg Tablet.Dr PO 40 mg QDAC BANDAR Administration Polyethylene Glycol 17 gm 02/23/20 09:00 02/24/20 09:34 Polyethylene Glycol 17 Gm Powd.Pack PO 17 gm DAILY BANDAR Administration Sodium Chloride 1 syr 02/22/20 21:00 02/24/20 13:58 0.9% Sodium Chloride 10 Ml Disp.Syrin IVF 1 syr Q8HR BANDAR Administration Tamsulosin HCl 0.8 mg 02/23/20 21:00 02/23/20 20:22 Tamsulosin Hcl 0.4 Mg Cap.Er.24h PO 0.8 mg BEDTIME BANDAR Administration Discontinued Medications Generic Name Dose Route Start Last Admin Trade Name Freq PRN Reason Stop Dose Admin Albuterol Sulfate 2 puff 02/22/20 10:41 02/22/20 11:06 Albuterol Sulfate (Ventolin Hfa) 18 Gm 1 Puff With Spacer IH 02/22/20 10:42 2 puff ONCE STA Administration Albuterol Sulfate mg 02/22/20 21:00 Albuterol Sulfate 0.083% Vial.Neb NEB TID BANDAR Albuterol Sulfate 2 puff 02/22/20 16:09 Albuterol Sulfate (Ventolin Hfa) 18 Gm 1 Puff With Spacer IH Q4-6H PRN Wheezing Budesonide 0.5 mg 02/23/20 09:00 Budesonide 0.5 Mg/2 Ml Vial.Neb NEB DAILY BANDAR Hydrocortisone Sodium Succinate 125 mg 02/22/20 19:30 Hydrocortisone Sod Succ/Pf 250 Mg/2 Ml Vial IVP Q8H BANDAR Hydrocortisone Sodium Succinate 125 mg 02/22/20 21:00 02/23/20 05:45 Hydrocortisone Sod Succ/Pf 250 Mg/2 Ml Vial IVP 125 mg Q8H BANDAR Administration Sodium Chloride 1,000 mls @ 1,000 mls/hr 02/22/20 10:32 02/22/20 11:19 Sodium Chloride IV 02/22/20 11:31 1,000 mls/hr BOLUS STA Administration Ipratropium [place] 2 puff 02/22/20 10:42 02/22/20 11:05 Ipratropium [place] 12.9 Gm Hfa Inhaler Per Puff With Spacer IH 02/22/20 10:43 2 puff ONCE STA Administration Methylprednisolone Sodium Succinate 125 mg 02/22/20 10:32 02/22/20 11:19 Methylprednisolone Sod Succ/Pf 125 Mg/2 Ml Vial IVP 02/22/20 10:33 125 mg ONCE STA Administration Tamsulosin HCl 0.8 mg 02/23/20 09:00 02/23/20 09:26 Tamsulosin Hcl 0.4 Mg Cap.Er.24h PO 0.8 mg DAILY BANDAR Administration Vital Signs: Temp Pulse Resp BP Pulse Ox 02/22/20 09:55 96.8 F L 90 20 153/81 H 94 L Discharge Plan Discharge Patient Disposition: ADMITTED INPATIENT Discharge Problem: Hypoxemia, Weakness COPD (chronic obstructive pulmonary disease) Qualifiers: COPD type: COPD with acute exacerbation Qualified Code(s): J44.1 - Chronic obstructive pulmonary disease with (acute) exacerbation Emphysema of lung Qualifiers: Emphysema type: unspecified Qualified Code(s): J43.9 - Emphysema, unspecified ED Provider: MARIS DIAZ Condition: Fair Physician Progress Note: Pt suffers chronic COPD; past two days has had more difficulty breathing. On exam, 3+ wheezing; improvement w albuterol and atrovent puffs in ER. Pt c/o weekness 2/2 breathing problems. Discuss w Dr. Schulte; pt to be admitted to Dr. Schulte's service. []
[2020-02-22] MEDS: ROCEPHIN 1 GM/50 ML D5W 1 GM/50 ML BAG IV SCH (14:30)
[2020-02-22] MEDS ORDERED: TYLENOL PO PRN (15:18)
[2020-02-22] MEDS ORDERED: VENTOLIN HFA (PER PUFF-WITH SPACER) IH PRN (16:09)
[2020-02-22 16:12] LABS: BILIRUBIN,URINE Negative (NEGATIVE); CLARITY,URINE Clear (CLEAR); COLOR,URINE Yellow (YELLOW); GLUCOSE, URINE (UA) Negative (NEGATIVE); KETONES,URINE Negative (NEGATIVE); LEUKOCYTE ESTERASE ,URINE 1+ (NEGATIVE); NITRITE,URINE Negative (NEGATIVE); PROTEIN,URINE 1+ (NEGATIVE); URINE, BLOOD Trace-intact (NEGATIVE); UROBILINOGEN,URINE 0.2 (0.2)
[2020-02-22 16:19] LABS: BACTERIA,URINE TRACE (NOT PRESENT); SQUAMOUS EPITHELIAL CELL,UR NOT PRESENT (0-5); URINE WBC, MICROSCOPIC 0-2 (0-2)
[2020-02-22] MEDS ORDERED: VASOTEC IV IVP PRN (16:24)
[2020-02-22] MEDS ORDERED: SOLU-CORTEF 250 MG IVP SCH (19:30)
[2020-02-22] MEDS ORDERED: VISTARIL INJ IM PRN (19:37)
[2020-02-22] MEDS ORDERED: NITROSTAT SL PRN (19:37)
[2020-02-22] MEDS ORDERED: ATROPINE SULFATE PFS IVP PRN (19:37)
[2020-02-22] MEDS: VENTOLIN HFA (PER PUFF-WITH SPACER) IH SCH (20:15)
[2020-02-22] MEDS: CATAPRES PO SCH (20:46)
[2020-02-22] MEDS: ASPIRIN EC PO SCH (20:46)
[2020-02-22] MEDS: XANAX PO SCH (20:46)
[2020-02-22] MEDS: MUCINEX PO SCH (20:46)
[2020-02-22] MEDS: NORVASC PO SCH (20:46)
[2020-02-22] MEDS: [UNRECOGNIZED DRUG - OTHER] PO SCH (20:52)
[2020-02-22] MEDS ORDERED: ALBUTEROL 0.083% NEB NEB SCH (21:00)
[2020-02-22] MEDS: SOLU-CORTEF 250 MG IVP SCH (21:33)
[2020-02-23] MEDS: SODIUM CHLORIDE 1,000 ML IV SCH (00:24)
[2020-02-23 04:04] LABS: BASOPHILS % (AUTO) 0.2 % (0.0-3.0); HEMATOCRIT 41.4 % (42.0-52.0); HEMOGLOBIN 14.6 g/dl (14.0-18.0); IMMATURE GRANULOCYTE % (AUTO) 0.4 % (0.0-5.0); LYMPHOCYTES # (AUTO) 0.9 K/uL (0.60-3.4); LYMPHOCYTES % (AUTO) 20.4 (10.0-50.0); MEAN CORPUSCULAR HEMOGLOBIN 32.6 pg (27.0-31.0); MEAN CORPUSCULAR HGB CONC 35.3 (31.8-35.4); MEAN CORPUSCULAR VOLUME 92.4 fl (80.0-94.0); MONOCYTES # (AUTO) 0.1 K/uL (0.4-2.0); MONOCYTES % (AUTO) 2.8 (0-10); NEUTROPHILS # (AUTO) 3.5 K/ul (2.0-6.9); NEUTROPHILS % (AUTO) 76.2 % (42.2-75.2); PLATELET COUNT 189 10^3/uL (140-440); RDW COEFFICIENT OF VARIATION 12.2 % (11.6-14.8); RED BLOOD COUNT 4.48 10^6/ul (4.70-6.10); WHITE BLOOD COUNT 4.57 K/ul (4.2-10.2)
[2020-02-23 04:15] LABS: ALBUMIN 3.76 g/dL (3.5-5.0); ALKALINE PHOSPHATASE 53.7 U/L (56-119); BILIRUBIN,TOTAL 0.54 mg/dL (0.2-1.3); BLOOD UREA NITROGEN 19.2 mg/dL (9-20); CALCIUM 8.95 mg/dL (8.4-10.2); CARBON DIOXIDE 24.2 mmol/L (22-30.0); CREATININE 1.01 mg/dL (0.60-1.10); GLUCOSE 135.6 mg/dL (74-106); POTASSIUM 4.51 mmol/L (3.5-5.1); SODIUM 130.5 mmol/L (134.5-145); TOTAL PROTEIN 6.31 g/dL (6.3-8.2)
[2020-02-23 04:27] LABS: TROPONIN I < 0.012 ng/ml (0.0000-0.120)
[2020-02-23] MEDS: VENTOLIN HFA (PER PUFF-WITH SPACER) IH SCH ×3 (05:00→19:40)
[2020-02-23] MEDS: PROTONIX PO SCH (05:41)
[2020-02-23] MEDS: SOLU-CORTEF 250 MG IVP SCH ×3 (05:45→20:44)
[2020-02-23] MEDS ORDERED: ROCEPHIN 1 GM/50 ML D5W 1 GM/50 ML BAG IV SCH (09:00)
[2020-02-23] MEDS ORDERED: FLOMAX PO SCH (09:00)
[2020-02-23] MEDS ORDERED: PULMICORT 0.5 MG/2 ML NEB SCH (09:00)
--- NOTE | 2020-02-23 09:07 | PCM.PROG ---
Attending Provider: ATTENDING PROVIDER: Dr. HAILEY SCHULTE This patient is seen with Debbie Garcia, Nurse Practitioner. DATE OF SERVICE: 02/23/20 SUBJECTIVE: This 79 year old /WHITE M was hospitalized 02/22/20. The patient is resting comfortably. Still wheezing. No fever. Appetite is good. REVIEW OF SYSTEMS: CONSTITUTIONAL: No night sweats. No fatigue, malaise, lethargy. No fever or chills. HEENT: Eyes: No visual changes. No eye pain. No eye discharge. ENT: No runny nose. No epistaxis. No sinus pain. No odynophagia. No congestion. RESPIRATORY: Cough, no congestion. No hemoptysis. Shortness of breath. Wheezing. CARDIOVASCULAR: No angina symptoms. No CHF symptoms. No atypical chest pain for CAD. No palpitations. No orthopnea.. GASTROINTESTINAL: No abdominal pain. No nausea or vomiting. No diarrhea or constipation. No hematemesis. No hematochezia. GENITOURINARY: No urgency. No frequency. No dysuria. No hematuria. No obstructive symptoms. No discharge. No pain. No significant abnormal bleeding. MUSCULOSKELETAL: No musculoskeletal pain; no joint swelling. NEUROLOGICAL: Awake, alert, oriented to time, place and person. No headache. No neck pain. No syncope. No seizures. No dizziness. PSYCHIATRIC: Not anxious. No depression. No suicidal thoughts. No homicidal thoughts. SKIN: No rash. No lesions. No wounds. ENDOCRINE: No unexplained weight loss. No weight gain. HEMATOLOGIC/LYMPHATIC: No anemia. No purpura. No petechiae. No prolonged or excessive bleeding. No palpable lymph nodes. PHYSICAL EXAMINATION: GENERAL: The patient is awake, alert and oriented, lying in bed in no distress. VITAL SIGNS: Temperature 97.8 F, Pulse 58, Respiratory Rate 20, BP 134/76, Pulse Ox 94% HEENT: Head normocephalic, atraumatic. Eyes: Extraocular muscles are intact. Pupils are equal, round and reactive to light and accommodation. Ears: No lesions. Nose appeared normal. Throat: No exudate or erythema. NECK: Supple. No JVD, no carotid bruit. No lymphadenopathy or thyromegaly. LUNGS: Severely diminished breath sounds. Bilateral inspiratory and expiratory wheeze. Clear to auscultation. Percussion note normal. Chest symmetrical. HEART: S1, S2, no S3. No murmurs. No cyanosis or clubbing. No ascites. Pulses: Dorsalis pedis and posterior tibial pulses +1 to +2 both sides. ABDOMEN: Soft. Non-tender. Bowel sounds active. No CVA tenderness. No mass felt. EXTREMITIES: No edema. Full range of motion of all extremities, equal. NEUROLOGIC: No focal deficit. Cranial nerves II through XII are grossly intact. No headache, no double vision or headache. SKIN: Not dry. Intact. Turgor-normal. LYMPHATIC: No palpable lymph nodes/no lymphedema. MUSCULOSKELETAL: Normal joints with no swelling. Muscle tone is normal. LAB REVIEW: 02/23/20 03:45 02/23/20 03:45 02/23/20 03:45: Sodium 130.5 L, Potassium 4.51, Chloride 101.0, Carbon Dioxide 24.2, Anion Gap 9.81, BUN 19.2, Creatinine 1.01, Estimated GFR (MDRD) 71.00, BUN/Creatinine Ratio 19.00, Glucose 135.6 H, Calcium 8.95, Total Bilirubin 0.54, AST 23.0, ALT 20.0, Alkaline Phosphatase 53.7 L, Total Creatine Kinase 100.0, Troponin I < 0.012, Total Protein 6.31, Albumin 3.76, Globulin 2.55, Albumin/Globulin Ratio 1.47 02/23/20 03:45: PT 11.0, INR 1.04 02/23/20 03:45: WBC 4.57, RBC 4.48 L, Hgb 14.6, Hct 41.4 L, MCV 92.4, MCH 32.6 H , MCHC 35.3, RDW Coeff of Bhaskar 12.2, Plt Count 189, Immature Gran % (Auto) 0.4, Neut % (Auto) 76.2 H, Lymph % (Auto) 20.4, [place] % (Auto) 2.8, Eos % (Auto) 0.0, Baso % (Auto) 0.2, Neut # (Auto) 3.5, Lymph # (Auto) 0.9, [place] # (Auto) 0.1 L, Eos # (Auto) 0.0, Baso # (Auto) 0.0, Immature Gran # (Auto) 0.0 02/22/20 16:00: Urine Color Yellow, Urine Clarity Clear, Urine pH 7.0, Ur Specific [place] 1.020, Urine Protein 1+ H, Urine Glucose (UA) Negative, Urine Ketones Negative, Urine Blood Trace-intact H, Urine Nitrite Negative, Urine Bilirubin Negative, Urine Urobilinogen 0.2, Ur Leukocyte Esterase 1+ H, Urine Microscopic WBC 0-2, Ur Squamous Epith Cells Not present, Urine Bacteria Trace 02/22/20 12:35: Adenovirus (PCR) Not detected, B. pertussis DNA (PCR) Not detected, B.parapertussis DNA PCR Not detected, C. pneumoniae DNA (PCR) Not detected, Coronavirus OC43 (PCR) Not detected, Coronavirus HKU1 (PCR) Not detected, Coronavirus 229E (PCR) Not detected, Coronavirus NL63 (PCR) Not detected, Human Metapneumovir PCR Not detected, Influenza Type A (PCR) Not detected, Influenza B (RT-PCR) Not detected, M. pneumoniae (PCR) Not detected, Parainfluenza 1 (PCR) Not detected, Parainfluenza 2 (PCR) Not detected, Parainfluenza 3 (PCR) Not detected, Parainfluenza 4 (PCR) Not detected, RSV (PCR) Not detected, Entero/Rhino (PCR) Not detected, SARS-CoV-2 (PCR) Not detected 02/22/20 11:12: Sodium 133.1 L, Potassium 4.23, Chloride 98.1, Carbon Dioxide 28.4, Anion Gap 10.83, BUN 17.2, Creatinine 1.16 H, Estimated GFR (MDRD) 61.00, BUN/Creatinine Ratio 14.82, Glucose 95.0, Calcium 9.83, Total Bilirubin 0.79, AST 30.2, ALT 24.0, Alkaline Phosphatase 64.6, Total Protein 7.41, Albumin 4.37, Globulin 3.04, Albumin/Globulin Ratio 1.43 02/22/20 11:12: WBC 6.55, RBC 4.81, Hgb 15.7, Hct 45.0, MCV 93.6, MCH 32.6 H, MCHC 34.9, RDW Coeff of Bhaskar 12.6, Plt Count 203, Immature Gran % (Auto) 0.3, Neut % (Auto) 57.4, Lymph % (Auto) 25.2, [place] % (Auto) 8.7, Eos % (Auto) 7.8 H, Baso % (Auto) 0.6, Neut # (Auto) 3.8, Lymph # (Auto) 1.7, [place] # (Auto) 0.6, Eos # (Auto) 0.5, Baso # (Auto) 0.0, Immature Gran # (Auto) 0.0 02/22/20 10:45: Puncture Site R rad, O2 Saturation 92.5 L, ABG pH 7.36, ABG pCO2 48.0 H, ABG pO2 68.0 L, ABG HCO3 27.1 H, ABG Total CO2 28.6 H, ABG Base Excess 1.7, [place] Test +, O2 Delivery Device Nc, Oxygen Liter Flow 2.00 ASSESSMENT: Please see below. 1. Shortness of breath 2. Acute COPD exacerbation 3. Hyponatremia 4. Hypertension PLAN: 1. Continue IV steroids and antibiotics 2. Continue IV fluids 3. Sputum culture Plan and coordination of the patient's care discussed in the presence of Pattern Filer and nurse. EDUCATION: CONDITION: SCRIBED BY: Merced VELEZist scribed while in presence of service performed by Dr. Schulte/Debbie Garcia APRN on 02/23/20 ([id number])
[2020-02-23] MEDS: XANAX PO SCH ×2 (09:25→20:22)
[2020-02-23] MEDS: MUCINEX PO SCH ×2 (09:25→20:22)
[2020-02-23] MEDS: NON-FORMULARY MEDICATION (Tiotropium-Olodaterol [Stiolto Respimat] 4 GM mist) IH SCH (09:25)
[2020-02-23] MEDS: LEXAPRO PO SCH (09:25)
[2020-02-23] MEDS: CATAPRES PO SCH ×2 (09:25→20:22)
[2020-02-23] MEDS: COZAAR PO SCH (09:25)
[2020-02-23] MEDS: LOVENOX SUBCUT SCH (09:26)
[2020-02-23] MEDS: NORVASC PO SCH ×2 (09:26→20:22)
[2020-02-23] MEDS: MIRALAX PO SCH (09:31)
[2020-02-23] MEDS: ROCEPHIN 1 GM/50 ML D5W 1 GM/50 ML BAG IV SCH (09:31)
[2020-02-23] MEDS: [UNRECOGNIZED DRUG - OTHER] PO SCH ×2 (09:32→22:31)
[2020-02-23] MEDS: FLONASE NAS PRN (09:34)
--- NOTE | 2020-02-23 10:54 | HP ---
DATE OF SERVICE: 02/22/2020 REASON FOR HOSPITALIZATION/HISTORY OF PRESENT ILLNESS: 79 year old white male who presents to the emergency room with shortness of breath. He does have a long history of severe COPD and is oxygen dependant. He denies any fever. PAST MEDICAL HISTORY: Chronic respiratory failure Chronic COPD PVC PAC Palpitations Right sciatica Chronic bronchitis Coronary artery disease with stent Symptomatic bradycardia Anxiety Secondary polycythemia Hypertension Anxiety Oxygen dependent Sleep apnea, wears CPAP BPH see Dr. Oocnnor Hyperglycemia PAST SURGICAL HISTORY: Cardiac stent in 1999 Bilateral cataract 2015 REVIEW OF SYSTEMS: CONSTITUTIONAL: No night sweats. No fatigue, malaise, lethargy. No fever or chills. HEENT: Eyes: No visual changes. No eye pain. No eye discharge. ENT: No runny nose. No epistaxis. No sinus pain. No sore throat. No odynophagia. No ear pain. No congestion. RESPIRATORY: Cough, no congestion. No hemoptysis. Shortness of breath. CARDIOVASCULAR: No angina symptoms. No CHF symptoms. No atypical chest pain for CAD. No palpitations. No PND. No orthopnea. GASTROINTESTINAL: No abdominal pain. No nausea or vomiting. No diarrhea or constipation. No hematemesis. No hematochezia. GENITOURINARY: No urgency. No frequency. No dysuria. No hematuria. No obstructive symptoms. No discharge. No pain. No significant abnormal bleeding. MUSCULOSKELETAL: No musculoskeletal pain. No joint swelling. No arthritis. NEUROLOGICAL: No headache. No neck pain. No syncope. No seizures. No dizziness. PSYCHIATRIC: Not anxious. No depression. No suicidal thoughts. No homicidal thoughts. SKIN: No rash. No lesions. No wounds. ENDOCRINE: No unexplained weight loss. No weight gain. HEMATOLOGIC/LYMPHATIC: No anemia. No purpura. No petechiae. No prolonged or excessive bleeding. No palpable lymph nodes. PERSONAL/FAMILY/SOCIAL HISTORY: He is a former smoker. He is and lives alone. No alcohol or illicit drug use. MEDICATIONS: Aspirin 81mg PO bedtime Escitalopram Oxalate 10mg PO daily Stiolto 2 puffs inhalation daily Ventolin two puff inhalation Q 4-6 hours Albuterol sulfate one vial NEB TID Protonix 40mg PO daily Clonidine 0.2mg PO BID Amlodipine 5mg PO BID Budesonide 0.5mg inhalation daily Flonase 50ncg two spray intranasal daily Flonase 50mcg two spray intranasal daily prn Miralax 17gram PO daily Mucinex 600mg PO BID Non-formulary two drops PO BID Xanax 0.5mg BID Cozaar 100mg PO daily ALLERGIES: Levofloxacin PHYSICAL EXAMINATION: GENERAL: The patient is alert and oriented times three. VITAL SIGNS: Temperature 96.8, heart rate 90, blood pressure 153/81, oxygen 90%, respiratory 28. HEENT: Head normocephalic, atraumatic. Eyes: Extraocular muscles are intact. Pupils are equal, round and reactive to light and accommodation. Ears: No lesions. Nose appeared normal. Throat: No exudate or erythema. NECK: Supple. No JVD, no carotid bruit. No lymphadenopathy or thyromegaly. LUNGS: Diminished breath sounds. Bilateral rhonchi. Clear to auscultation. Percussion note normal. Chest symmetrical. HEART: S1, S2, no S3. No murmur. No cyanosis or clubbing. No ascites. Pulses: Dorsalis pedis and posterior tibial pulses +1 to +2 bilaterally. ABDOMEN: Soft. Nontender. Bowel sounds active. No CVA tenderness. No mass felt. EXTREMITIES: No edema. Full range of motion of all extremities, equal. NEUROLOGIC: No focal deficit. Cranial nerves II through XII are grossly intact. No headache, no double vision or headache. SKIN: Intact. Turgor - normal. Pallor. Dry mucous membrane LYMPHATIC: No palpable lymph nodes/no lymphedema. MUSCULOSKELETAL: Normal joints with no swelling. Muscle tone is normal. LABS: Chest x-ray shows COPD. ABG on 2 liters pCO2 48, pO2 68, bicarb 27.1, TCO2 20, o2 saturation 92.5. Sodium 133, potassium 4.2, BUN 17, creatinine 1.16. AST 30, ALT 24. WBC 6.5, hgb 15.7, hct 45, plt count 203. Respiratory panel all thing negative including COVID. ASSESSMENT: 1. Shortness of breath 2. Acute COPD exacerbation 3. Chronic respiratory failure 4. Hypertension 5. Hyponatremia 6. Generalized weakness 7. Severe COPD 8. PVC 9. PAC 10.Coronary artery disease 11.Chronic bronchitis 12.Polycythemia PLAN: 1. We will admit 2. Routine telemetry orders 3. CBC and CMP daily 4. Continue all home medications 5. Started Rocephin 1 gram IV daily 6. Solu-Cortef 125mg IV Q 8 hours 7. Normal saline at 75cc an hour 8. Oxygen 1-3 liters via nasal cannula 9. Regular diet 10.Albuterol inhaler two puffs TID 11.Symbicort two puffs BID Will follow closely. TIME SPENT: More than 70 minutes. MTDD
--- NOTE | 2020-02-23 10:56 | PN ---
DATE OF SERVICE: 02/22/2020 SUBJECTIVE: The patient was seen and examined with the Nurse Practitioner. The patient's History and Physical is done. The patient's condition is stable with blood gasses acceptable. His main problem is weakness and shortness of breath with minimal exertion. He is going to be on steroids, NEBS and Antibiotics. COVID pending. TIME SPENT: More than 30 minutes. Plan and coordination of the patient's care discussed in the presence of nurse. NITIN
--- NOTE | 2020-02-23 14:11 | PN ---
DATE OF SERVICE: 02/22/2020 SUBJECTIVE: The patient was seen and examined and was admitted through the emergency department. The patient's respiratory status has been compromised with acute bronchitis. The patient is mildly wheezing with mildly labored respirations. He has been able to talk a couple of sentences at a time. His condition has worsened in last three to four days according to him and coughing up a lot of sputum, slightly yellowish. REVIEW OF SYSTEMS: CONSTITUTIONAL: No night sweats. No fatigue, malaise, lethargy. No fever or chills. HEENT: Eyes: No visual changes. No eye pain. No eye discharge. ENT: No runny nose. No epistaxis. No sinus pain. No sore throat. No odynophagia. No congestion. RESPIRATORY: No cough, no congestion. No hemoptysis. No shortness of breath. CARDIOVASCULAR: No angina symptoms. No CHF symptoms. No atypical chest pain for CAD. No palpitations. No PND. No orthopnea. GASTROINTESTINAL: No abdominal pain. No nausea or vomiting. No diarrhea or constipation. No hematemesis. No hematochezia. GENITOURINARY: No urgency. No frequency. No dysuria. No hematuria. No obstructive symptoms. No discharge. No pain. No significant abnormal bleeding. MUSCULOSKELETAL: No musculoskeletal pain; no joint swelling. NEUROLOGICAL: No headache. No neck pain. No syncope. No seizures. No dizziness. PSYCHIATRIC: Not anxious. No depression. No suicidal thoughts. No homicidal thoughts. SKIN: No rash. No lesions. No wounds. ENDOCRINE: No unexplained weight loss. No weight gain. HEMATOLOGIC/LYMPHATIC: No anemia. No purpura. No petechiae. No prolonged or excessive bleeding. No palpable lymph nodes. PHYSICAL EXAMINATION: GENERAL: The patient is oriented to time, place and person. HEENT: Head normocephalic, atraumatic. Eyes: Extraocular muscles are intact. Pupils are equal, round and reactive to light and accommodation. Ears: No lesions. Nose appeared normal. Throat: No exudate or erythema. NECK: Supple. No JVD, no carotid bruit. No lymphadenopathy or thyromegaly. LUNGS:Decreased with mild expiratory wheezing. Clear to auscultation. Percussion note normal. Chest symmetrical. HEART: S1, S2, no S3. No murmurs. No cyanosis or clubbing. No ascites. Pulses: Dorsalis pedis and posterior tibial pulses +1 bilaterally. ABDOMEN: Soft. Nontender. Bowel sounds active. No CVA tenderness. No mass felt. EXTREMITIES: No edema. Full range of motion of all extremities, equal. NEUROLOGIC: No focal deficit. Cranial nerves II through XII are grossly intact. No headache, no double vision or headache. SKIN: Not dry. Intact. Turgor - normal. LYMPHATIC: No palpable lymph nodes/no lymphedema. MUSCULOSKELETAL: Normal joints with no swelling. Muscle tone is normal. LABS: Telemetry shows sinus rhythm with rate of 90 per minute. Systolic blood pressure is 170. Oxygen saturation on room air is 88%. ASSESSMENT: 1. Chronic respiratory failure with acute bronchitis with severe chronic lung disease progressing 2. History of coronary artery disease 3. Hypertension 4. Dyslipidemia PLAN: 1. Given IV fluids 2. Steroids, antibiotics and NEBS treatment 3. The patient says that he is on BIPAP at home. Discussed the case with respiratory therapist and we will try to arrange the same kind of BIPAP if possible. 4. Continue two liters of oxygen 5. Vasotec to be given IV for any systolic blood pressure of more than 160. 5mg Q 6 hours. Side effects of steroids discussed including avascular necrosis of the bone. The patient is DNR. He doesn't want any intubation or respirator. CONDITION: Stable. TIME SPENT: More than 30 minutes. Plan and coordination of the patient's care discussed in the presence of nurse. NITIN
[2020-02-23] MEDS: FLOMAX PO SCH (20:22)
[2020-02-23] MEDS: ASPIRIN EC PO SCH (20:22)
[2020-02-24] MEDS: VENTOLIN HFA (PER PUFF-WITH SPACER) IH SCH ×3 (00:10→20:10)
[2020-02-24 04:10] LABS: HEMATOCRIT 39.4 % (42.0-52.0); HEMOGLOBIN 13.9 g/dl (14.0-18.0); IMMATURE GRANULOCYTE % (AUTO) 0.3 % (0.0-5.0); LYMPHOCYTES # (AUTO) 1.1 K/uL (0.60-3.4); LYMPHOCYTES % (AUTO) 15.9 (10.0-50.0); MEAN CORPUSCULAR HEMOGLOBIN 32.9 pg (27.0-31.0); MEAN CORPUSCULAR HGB CONC 35.3 (31.8-35.4); MEAN CORPUSCULAR VOLUME 93.1 fl (80.0-94.0); MONOCYTES # (AUTO) 0.4 K/uL (0.4-2.0); MONOCYTES % (AUTO) 5.1 (0-10); NEUTROPHILS # (AUTO) 5.6 K/ul (2.0-6.9); NEUTROPHILS % (AUTO) 78.7 % (42.2-75.2); PLATELET COUNT 173 10^3/uL (140-440); RDW COEFFICIENT OF VARIATION 12.6 % (11.6-14.8); RED BLOOD COUNT 4.23 10^6/ul (4.70-6.10)
[2020-02-24 04:22] LABS: PROTHROMBIN TIME 10.6 SEC (9.3-11.0)
[2020-02-24 04:23] LABS: ALANINE AMINOTRANSFERASE 18.7 U/L (0-50); ALBUMIN 3.58 g/dL (3.5-5.0); ALKALINE PHOSPHATASE 46.5 U/L (56-119); ASPARTATE AMINO TRANSFERASE 22.4 U/L (17-59); BILIRUBIN,TOTAL 0.51 mg/dL (0.2-1.3); BLOOD UREA NITROGEN 20.9 mg/dL (9-20); CALCIUM 8.7 mg/dL (8.4-10.2); CARBON DIOXIDE 25.3 mmol/L (22-30.0); CHLORIDE 101.2 mmol/L (98-107); CREATININE 1.07 mg/dL (0.60-1.10); GLUCOSE 129.6 mg/dL (74-106); POTASSIUM 4.59 mmol/L (3.5-5.1); SODIUM 130.3 mmol/L (134.5-145); TOTAL PROTEIN 6.17 g/dL (6.3-8.2)
[2020-02-24] MEDS: SOLU-CORTEF 250 MG IVP SCH ×3 (05:16→20:18)
[2020-02-24] MEDS: PROTONIX PO SCH (06:01)
[2020-02-24] MEDS: FLONASE NAS PRN (09:33)
[2020-02-24] MEDS: NON-FORMULARY MEDICATION (Tiotropium-Olodaterol [Stiolto Respimat] 4 GM mist) IH SCH (09:33)
[2020-02-24] MEDS: MIRALAX PO SCH (09:34)
[2020-02-24] MEDS: CATAPRES PO SCH ×2 (09:37→20:19)
[2020-02-24] MEDS: XANAX PO SCH ×2 (09:37→20:19)
[2020-02-24] MEDS: COZAAR PO SCH (09:37)
[2020-02-24] MEDS: MUCINEX PO SCH ×2 (09:37→20:19)
[2020-02-24] MEDS: NORVASC PO SCH ×2 (09:37→20:19)
[2020-02-24] MEDS: LEXAPRO PO SCH (09:38)
[2020-02-24] MEDS: ROCEPHIN 1 GM/50 ML D5W 1 GM/50 ML BAG IV SCH (09:38)
[2020-02-24] MEDS: LOVENOX SUBCUT SCH (09:50)
[2020-02-24] MEDS: [UNRECOGNIZED DRUG - OTHER] PO SCH ×2 (11:13→20:20)
--- NOTE | 2020-02-24 11:32 | PN ---
DATE OF SERVICE: 02/23/20 SUBJECTIVE: The patient was seen and examined with nurse practitioner. The patient's condition has improved. Respiratory status has improved. Lungs have decreased breath sounds with not much wheezing. Oxygen saturation 95% with 2L, is on BIPAP at night. Respiratory status stable. TIME SPENT: More than 30 minutes. Plan and coordination of the patient's care discussed in the presence of nurse. NITIN
[2020-02-24] MEDS: FLOMAX PO SCH (20:19)
[2020-02-24] MEDS: ASPIRIN EC PO SCH (20:20)
[2020-02-24] MEDS: SODIUM CHLORIDE 1,000 ML IV SCH (21:58)
[2020-02-25] MEDS: SODIUM CHLORIDE 1,000 ML IV SCH (00:08)
[2020-02-25] MEDS: VENTOLIN HFA (PER PUFF-WITH SPACER) IH SCH ×4 (04:45→19:50)
[2020-02-25] MEDS: SOLU-CORTEF 250 MG IVP SCH ×2 (05:36→20:14)
[2020-02-25] MEDS: PROTONIX PO SCH (05:44)
[2020-02-25 06:17] LABS: ALANINE AMINOTRANSFERASE 23.3 U/L (0-50); ALBUMIN 4.33 g/dL (3.5-5.0); ALKALINE PHOSPHATASE 52.4 U/L (56-119); ASPARTATE AMINO TRANSFERASE 26.9 U/L (17-59); BILIRUBIN,TOTAL 0.7 mg/dL (0.2-1.3); BLOOD UREA NITROGEN 20.9 mg/dL (9-20); CALCIUM 9.27 mg/dL (8.4-10.2); CARBON DIOXIDE 22.2 mmol/L (22-30.0); CHLORIDE 101.9 mmol/L (98-107); CREATININE 0.98 mg/dL (0.60-1.10); GLUCOSE 106.7 mg/dL (74-106); POTASSIUM 4.13 mmol/L (3.5-5.1); SODIUM 132.2 mmol/L (134.5-145); TOTAL PROTEIN 7.38 g/dL (6.3-8.2)
[2020-02-25 07:33] LABS: HEMATOCRIT 44.8 % (42.0-52.0); HEMOGLOBIN 15.6 g/dl (14.0-18.0); IMMATURE GRANULOCYTE % (AUTO) 0.2 % (0.0-5.0); LYMPHOCYTES % (AUTO) 17.1 (10.0-50.0); MEAN CORPUSCULAR HEMOGLOBIN 32.2 pg (27.0-31.0); MEAN CORPUSCULAR HGB CONC 34.8 (31.8-35.4); MEAN CORPUSCULAR VOLUME 92.6 fl (80.0-94.0); MONOCYTES # (AUTO) 0.4 K/uL (0.4-2.0); MONOCYTES % (AUTO) 7.3 (0-10); NEUTROPHILS # (AUTO) 4.5 K/ul (2.0-6.9); NEUTROPHILS % (AUTO) 75.4 % (42.2-75.2); PLATELET COUNT 186 10^3/uL (140-440); RDW COEFFICIENT OF VARIATION 12.4 % (11.6-14.8); RED BLOOD COUNT 4.84 10^6/ul (4.70-6.10)
[2020-02-25] MEDS: COZAAR PO SCH (09:09)
[2020-02-25] MEDS: XANAX PO SCH ×2 (09:09→21:17)
[2020-02-25] MEDS: CATAPRES PO SCH ×2 (09:09→21:17)
[2020-02-25] MEDS: MUCINEX PO SCH ×2 (09:10→21:17)
[2020-02-25] MEDS: LEXAPRO PO SCH (09:10)
[2020-02-25] MEDS: NORVASC PO SCH ×2 (09:10→21:18)
[2020-02-25] MEDS: MIRALAX PO SCH (09:10)
[2020-02-25] MEDS: NON-FORMULARY MEDICATION (Tiotropium-Olodaterol [Stiolto Respimat] 4 GM mist) IH SCH (09:11)
[2020-02-25] MEDS: FLONASE NAS PRN (09:11)
[2020-02-25] MEDS: LOVENOX SUBCUT SCH (09:15)
[2020-02-25] MEDS: ROCEPHIN 1 GM/50 ML D5W 1 GM/50 ML BAG IV SCH (09:15)
[2020-02-25] MEDS: [UNRECOGNIZED DRUG - OTHER] PO SCH ×2 (09:52→22:10)
--- NOTE | 2020-02-25 10:40 | PCM.PROG ---
Attending Provider: ATTENDING PROVIDER: Dr. HAILEY GONZALEZ This patient is seen with Debbie Garcia, Nurse Practitioner. DATE OF SERVICE: 02/25/20 SUBJECTIVE: This 79 year old /WHITE M was hospitalized 02/22/20. The patient is resting comfortably. Wheezing has improved. He is still short of breath with exertion. wheezing has improve. still sob with exertion. even thou REVIEW OF SYSTEMS: CONSTITUTIONAL: No night sweats. No fatigue, malaise, lethargy. No fever or chills. HEENT: Eyes: No visual changes. No eye pain. No eye discharge. ENT: No runny nose. No epistaxis. No sinus pain. No odynophagia. No congestion. RESPIRATORY: Cough, no congestion. No hemoptysis. Shortness of breath. Wheezing. CARDIOVASCULAR: No angina symptoms. No CHF symptoms. No atypical chest pain for CAD. No palpitations. No orthopnea.. GASTROINTESTINAL: No abdominal pain. No nausea or vomiting. No diarrhea or constipation. No hematemesis. No hematochezia. GENITOURINARY: No urgency. No frequency. No dysuria. No hematuria. No obstructive symptoms. No discharge. No pain. No significant abnormal bleeding. MUSCULOSKELETAL: No musculoskeletal pain; no joint swelling. NEUROLOGICAL: Awake, alert, oriented to time, place and person. No headache. No neck pain. No syncope. No seizures. No dizziness. PSYCHIATRIC: Not anxious. No depression. No suicidal thoughts. No homicidal thoughts. SKIN: No rash. No lesions. No wounds. ENDOCRINE: No unexplained weight loss. No weight gain. HEMATOLOGIC/LYMPHATIC: No anemia. No purpura. No petechiae. No prolonged or excessive bleeding. No palpable lymph nodes. PHYSICAL EXAMINATION: GENERAL: The patient is awake, alert and oriented, lying in bed in no distress. VITAL SIGNS: Temperature 97.9 F, Pulse 66, Respiratory Rate 20, BP 154/85, Pulse Ox 95% HEENT: Head normocephalic, atraumatic. Eyes: Extraocular muscles are intact. Pupils are equal, round and reactive to light and accommodation. Ears: No lesions. Nose appeared normal. Throat: No exudate or erythema. NECK: Supple. No JVD, no carotid bruit. No lymphadenopathy or thyromegaly. LUNGS: Severely diminished breath sounds. Clear to auscultation. Percussion note normal. Chest symmetrical. HEART: S1, S2, no S3. No murmurs. No cyanosis or clubbing. No ascites. Pulses: Dorsalis pedis and posterior tibial pulses +1 to +2 both sides. ABDOMEN: Soft. Non-tender. Bowel sounds active. No CVA tenderness. No mass felt. EXTREMITIES: No edema. Full range of motion of all extremities, equal. NEUROLOGIC: No focal deficit. Cranial nerves II through XII are grossly intact. No headache, no double vision or headache. SKIN: Not dry. Intact. Turgor-normal. LYMPHATIC: No palpable lymph nodes/no lymphedema. MUSCULOSKELETAL: Normal joints with no swelling. Muscle tone is normal. LAB REVIEW: 02/25/20 07:10 02/25/20 06:00 02/25/20 07:10: WBC 5.90, RBC 4.84, Hgb 15.6, Hct 44.8, MCV 92.6, MCH 32.2 H, MCHC 34.8, RDW Coeff of Bhaskar 12.4, Plt Count 186, Immature Gran % (Auto) 0.2, Neut % (Auto) 75.4 H, Lymph % (Auto) 17.1, [place] % (Auto) 7.3, Eos % (Auto) 0.0, Baso % (Auto) 0.0, Neut # (Auto) 4.5, Lymph # (Auto) 1.0, [place] # (Auto) 0.4, Eos # (Auto) 0.0, Baso # (Auto) 0.0, Immature Gran # (Auto) 0.0 02/25/20 06:00: Sodium 132.2 L, Potassium 4.13, Chloride 101.9, Carbon Dioxide 22.2, Anion Gap 12.23, BUN 20.9 H, Creatinine 0.98, Estimated GFR (MDRD) 74.00, BUN/Creatinine Ratio 21.32, Glucose 106.7 H, Calcium 9.27, Total Bilirubin 0.70, AST 26.9, ALT 23.3, Alkaline Phosphatase 52.4 L, Total Protein 7.38, Albumin 4.33, Globulin 3.05, Albumin/Globulin Ratio 1.41 ASSESSMENT: Please see below. 1. Acute COPD exacerbation 2. Shortness of breath 3. Hypertension PLAN: 1. Decrease Solu-Cortef Q 12 hours 2. Discontinue IV fluids 3. Continue Rocephin Plan and coordination of the patient's care discussed in the presence of Case Sandra smith and nurse. SCRIBED BY: Valentin VELEZ scribed while in presence of service performed by Dr. Gonzalez/Debbie Gacria APRN on 02/25/20 ([id number])
--- NOTE | 2020-02-25 14:50 | PN ---
DATE OF SERVICE: 02/24/20 SUBJECTIVE: 79-year-old white male hospitalized with acute bronchitis, COPD exacerbation. The patient's condition seems to have improved some. He is feeling somewhat better. REVIEW OF SYSTEMS: CONSTITUTIONAL: No night sweats. No fatigue, malaise, lethargy. No fever or chills. HEENT: Eyes: No visual changes. No eye pain. No eye discharge. ENT: No runny nose. No epistaxis. No sinus pain. No sore throat. No odynophagia. No congestion. RESPIRATORY: No cough, no congestion. No hemoptysis. No shortness of breath. CARDIOVASCULAR: No angina symptoms. No CHF symptoms. No atypical chest pain for CAD. No palpitations. No PND. No orthopnea. GASTROINTESTINAL: No abdominal pain. No nausea or vomiting. No diarrhea or constipation. No hematemesis. No hematochezia. GENITOURINARY: No urgency. No frequency. No dysuria. No hematuria. No obstructive symptoms. No discharge. No pain. No significant abnormal bleeding. MUSCULOSKELETAL: No musculoskeletal pain; no joint swelling. NEUROLOGICAL: No headache. No neck pain. No syncope. No seizures. No dizziness. PSYCHIATRIC: Not anxious. No depression. No suicidal thoughts. No homicidal thoughts. SKIN: No rash. No lesions. No wounds. ENDOCRINE: No unexplained weight loss. No weight gain. HEMATOLOGIC/LYMPHATIC: No anemia. No purpura. No petechiae. No prolonged or excessive bleeding. No palpable lymph nodes. PHYSICAL EXAMINATION: VITAL SIGNS: Temperature 98.8, pulse 66, respiratory rate 16, blood pressure 150/72, pulse ox 94%. HEENT: Head normocephalic, atraumatic. Eyes: Extraocular muscles are intact. Pupils are equal, round and reactive to light and accommodation. Ears: No lesions. Nose appeared normal. Throat: No exudate or erythema. NECK: Supple. No JVD, no carotid bruit. No lymphadenopathy or thyromegaly. LUNGS: Decreased breath sounds but clear to auscultation. Percussion note normal. Chest symmetrical. HEART: S1, S2, no S3. No murmurs. No cyanosis or clubbing. No ascites. Pulses: Dorsalis pedis and posterior tibial pulses +1 to +2 bilaterally. ABDOMEN: Soft. Nontender. Bowel sounds active. No CVA tenderness. No mass felt. EXTREMITIES: No edema. Full range of motion of all extremities, equal. NEUROLOGIC: No focal deficit. Cranial nerves II through XII are grossly intact. No headache, no double vision or headache. SKIN: Not dry. Intact. Turgor - normal. LYMPHATIC: No palpable lymph nodes/no lymphedema. MUSCULOSKELETAL: Normal joints with no swelling. Muscle tone is normal. LABS: Hemoglobin 13.9, hematocrit 39, WBC 7,000, normal differential. Creatinine 1, BUN 20, potassium 4.5. ASSESSMENT: 1. Acute bronchitis with COPD exacerbation. 2. The patient has history of coronary artery disease. 3. Hypertension. 4. Dyslipidemia. PLAN: 1. Continue steroids IV, antibiotics and nebs, inhalers. 2. The patient needs to have pulmonary rehab. He use to do a lot better with it; because of Covid it has been stopped and it has really affected him. LABS: Hemoglobin 13, hematocrit 39, WBC 7,100, normal differential. TIME SPENT: More than 30 minutes. Plan and coordination of the patient's care discussed in the presence of nurse. NITIN
[2020-02-25] MEDS: FLOMAX PO SCH (21:17)
[2020-02-25] MEDS: ASPIRIN EC PO SCH (21:17)
[2020-02-26] MEDS: VENTOLIN HFA (PER PUFF-WITH SPACER) IH SCH ×4 (04:50→19:40)
[2020-02-26 05:22] LABS: ABG PH 7.43 (7.35-7.45)
[2020-02-26 05:54] LABS: BASOPHILS % (AUTO) 0.2 % (0.0-3.0); HEMATOCRIT 42.4 % (42.0-52.0); HEMOGLOBIN 14.7 g/dl (14.0-18.0); IMMATURE GRANULOCYTE % (AUTO) 0.5 % (0.0-5.0); LYMPHOCYTES # (AUTO) 1.3 K/uL (0.60-3.4); LYMPHOCYTES % (AUTO) 21.3 (10.0-50.0); MEAN CORPUSCULAR HEMOGLOBIN 32.2 pg (27.0-31.0); MEAN CORPUSCULAR HGB CONC 34.7 (31.8-35.4); MONOCYTES # (AUTO) 0.4 K/uL (0.4-2.0); MONOCYTES % (AUTO) 7.1 (0-10); NEUTROPHILS # (AUTO) 4.2 K/ul (2.0-6.9); NEUTROPHILS % (AUTO) 70.9 % (42.2-75.2); PLATELET COUNT 182 10^3/uL (140-440); RDW COEFFICIENT OF VARIATION 12.5 % (11.6-14.8); RED BLOOD COUNT 4.56 10^6/ul (4.70-6.10); WHITE BLOOD COUNT 5.95 K/ul (4.2-10.2)
[2020-02-26 05:59] LABS: ALANINE AMINOTRANSFERASE 20.5 U/L (0-50); ALBUMIN 3.47 g/dL (3.5-5.0); ALKALINE PHOSPHATASE 43.8 U/L (56-119); ASPARTATE AMINO TRANSFERASE 20.4 U/L (17-59); BILIRUBIN,TOTAL 0.55 mg/dL (0.2-1.3); BLOOD UREA NITROGEN 20.5 mg/dL (9-20); CALCIUM 8.51 mg/dL (8.4-10.2); CARBON DIOXIDE 26.1 mmol/L (22-30.0); CHLORIDE 102.2 mmol/L (98-107); CREATININE 1.04 mg/dL (0.60-1.10); GLUCOSE 110.9 mg/dL (74-106); POTASSIUM 3.91 mmol/L (3.5-5.1); TOTAL PROTEIN 5.94 g/dL (6.3-8.2)
[2020-02-26] MEDS: PROTONIX PO SCH (06:15)
--- NOTE | 2020-02-26 09:51 | PCM.PROG ---
Attending Provider: ATTENDING PROVIDER: Dr. HAILEY SCHULTE This patient is seen with Debbie Garcia, Nurse Practitioner. DATE OF SERVICE: 02/26/20 SUBJECTIVE: This 79 year old /WHITE M was hospitalized 02/22/20. The patient is resting comfortably. Oxygen was increased to 3 liters yesterday. ABG have improved. Still having productive cough with thick sputum. He is having increased shortness of breath with exertion. Appetite is good. REVIEW OF SYSTEMS: CONSTITUTIONAL: No night sweats. No fatigue, malaise, lethargy. No fever or chills. Weakness. HEENT: Eyes: No visual changes. No eye pain. No eye discharge. ENT: No runny nose. No epistaxis. No sinus pain. No odynophagia. No congestion. RESPIRATORY: No cough, no congestion. No hemoptysis. Shortness of breath. CARDIOVASCULAR: No angina symptoms. No CHF symptoms. No atypical chest pain for CAD. No palpitations. No orthopnea.. GASTROINTESTINAL: No abdominal pain. No nausea or vomiting. No diarrhea or constipation. No hematemesis. No hematochezia. GENITOURINARY: No urgency. No frequency. No dysuria. No hematuria. No obstructive symptoms. No discharge. No pain. No significant abnormal bleeding. MUSCULOSKELETAL: No musculoskeletal pain; no joint swelling. NEUROLOGICAL: Awake, alert, oriented to time, place and person. No headache. No neck pain. No syncope. No seizures. No dizziness. PSYCHIATRIC: Not anxious. No depression. No suicidal thoughts. No homicidal thoughts. SKIN: No rash. No lesions. No wounds. ENDOCRINE: No unexplained weight loss. No weight gain. HEMATOLOGIC/LYMPHATIC: No anemia. No purpura. No petechiae. No prolonged or excessive bleeding. No palpable lymph nodes. PHYSICAL EXAMINATION: GENERAL: The patient is awake, alert and oriented, sitting in bed in no d istress. VITAL SIGNS: Temperature 97.9 F, Pulse 70, Respiratory Rate 22, BP 143/80, Pulse Ox 95% HEENT: Head normocephalic, atraumatic. Eyes: Extraocular muscles are intact. Pupils are equal, round and reactive to light and accommodation. Ears: No lesions. Nose appeared normal. Throat: No exudate or erythema. NECK: Supple. No JVD, no carotid bruit. No lymphadenopathy or thyromegaly. LUNGS: Diminished breath sounds. Bilateral faint expiratory wheezing. Clear to auscultation. Percussion note normal. Chest symmetrical. HEART: S1, S2, no S3. No murmurs. No cyanosis or clubbing. No ascites. Pulses: Dorsalis pedis and posterior tibial pulses +1 to +2 both sides. ABDOMEN: Soft. Non-tender. Bowel sounds active. No CVA tenderness. No mass felt. EXTREMITIES: No edema. Full range of motion of all extremities, equal. NEUROLOGIC: No focal deficit. Cranial nerves II through XII are grossly intact. No headache, no double vision or headache. SKIN: Not dry. Intact. Turgor-normal. LYMPHATIC: No palpable lymph nodes/no lymphedema. MUSCULOSKELETAL: Normal joints with no swelling. Muscle tone is normal. LAB REVIEW: 02/26/20 04:58 02/26/20 04:58 02/26/20 05:22: Puncture Site Lrad, Base Excess 1.8, O2 Saturation 95.1, ABG pH 7.43, ABG pCO2 39.0, ABG pO2 74.0 L, ABG HCO3 25.9, ABG Total CO2 27.1 H, Albino Test +, Hemoglobin 1.0, Oxyhemoglobin 92.9 L, Carboxyhemoglobin 2.6 H, Total Hemoglobin 14.7, O2 Delivery Device Bnc, Oxygen Liter Flow 3.00, FiO2 % 32.0 02/26/20 04:58: Sodium 133.0 L, Potassium 3.91, Chloride 102.2, Carbon Dioxide 26.1, Anion Gap 8.61, BUN 20.5 H, Creatinine 1.04, Estimated GFR (MDRD) 69.00, BUN/Creatinine Ratio 19.71, Glucose 110.9 H, Calcium 8.51, Total Bilirubin 0.55, AST 20.4, ALT 20.5, Alkaline Phosphatase 43.8 L, Total Protein 5.94 L, Albumin 3.47 L, Globulin 2.47, Albumin/Globulin Ratio 1.40 02/26/20 04:58: WBC 5.95, RBC 4.56 L, Hgb 14.7, Hct 42.4, MCV 93.0, MCH 32.2 H, MCHC 34.7, RDW Coeff of Bhaskar 12.5, Plt Count 182, Immature Gran % (Auto) 0.5, Neut % (Auto) 70.9, Lymph % (Auto) 21.3, [place] % (Auto) 7.1, Eos % (Auto) 0.0, Baso % (Auto) 0.2, Neut # (Auto) 4.2, Lymph # (Auto) 1.3, [place] # (Auto) 0.4, Eos # (Auto) 0.0, Baso # (Auto) 0.0, Immature Gran # (Auto) 0.0 ASSESSMENT: Please see below. 1. Acute COPD exacerbation 2. Shortness of breath 3. O2 dependent 4. Hypertension PLAN: 1. Continue IV antibiotics and steroids. Plan and coordination of the patient's care discussed in the presence of Flooring Sales Manager and nurse. SCRIBED BY: Valentin VELEZ scribed while in presence of service performed by Dr. Schulte/Debbie Garcia APRN on 02/26/20 ([id number])
[2020-02-26] MEDS: MUCINEX PO SCH ×2 (10:06→21:05)
[2020-02-26] MEDS: NORVASC PO SCH ×2 (10:07→21:05)
[2020-02-26] MEDS: MIRALAX PO SCH (10:07)
[2020-02-26] MEDS: ROCEPHIN 1 GM/50 ML D5W 1 GM/50 ML BAG IV SCH (10:07)
[2020-02-26] MEDS: LEXAPRO PO SCH (10:07)
[2020-02-26] MEDS: XANAX PO SCH ×2 (10:07→21:04)
[2020-02-26] MEDS: COZAAR PO SCH (10:07)
[2020-02-26] MEDS: CATAPRES PO SCH ×2 (10:07→21:04)
[2020-02-26] MEDS: NON-FORMULARY MEDICATION (Tiotropium-Olodaterol [Stiolto Respimat] 4 GM mist) IH SCH (10:08)
[2020-02-26] MEDS: FLONASE NAS PRN (10:09)
[2020-02-26] MEDS: LOVENOX SUBCUT SCH (10:09)
[2020-02-26] MEDS: [UNRECOGNIZED DRUG - OTHER] PO SCH ×2 (10:45→21:19)
[2020-02-26] MEDS: SOLU-CORTEF 250 MG IVP SCH ×2 (11:00→22:07)
--- NOTE | 2020-02-26 13:37 | PN ---
DATE OF SERVICE: 02/25/2020 SUBJECTIVE: The patient was seen and examined with the Nurse Practitioner. The patient's condition is improving very slowly. He is wheezing on physical exam. Continue antibiotics, steroids and NEBS. TIME SPENT: More than 30 minutes. Plan and coordination of the patient's care discussed in the presence of nurse. NITIN
[2020-02-26] MEDS: SODIUM CHLORIDE 1,000 ML IV SCH (18:49)
[2020-02-26] MEDS: ASPIRIN EC PO SCH (21:04)
[2020-02-26] MEDS: FLOMAX PO SCH (21:05)
[2020-02-27] MEDS: VENTOLIN HFA (PER PUFF-WITH SPACER) IH SCH ×4 (04:55→19:30)
[2020-02-27 06:17] LABS: HEMATOCRIT 41.4 % (42.0-52.0); HEMOGLOBIN 14.6 g/dl (14.0-18.0); IMMATURE GRANULOCYTE % (AUTO) 0.3 % (0.0-5.0); LYMPHOCYTES # (AUTO) 1.2 K/uL (0.60-3.4); LYMPHOCYTES % (AUTO) 20.3 (10.0-50.0); MEAN CORPUSCULAR HEMOGLOBIN 32.7 pg (27.0-31.0); MEAN CORPUSCULAR HGB CONC 35.3 (31.8-35.4); MEAN CORPUSCULAR VOLUME 92.8 fl (80.0-94.0); MONOCYTES # (AUTO) 0.4 K/uL (0.4-2.0); MONOCYTES % (AUTO) 6.3 (0-10); NEUTROPHILS # (AUTO) 4.3 K/ul (2.0-6.9); NEUTROPHILS % (AUTO) 73.1 % (42.2-75.2); PLATELET COUNT 179 10^3/uL (140-440); RDW COEFFICIENT OF VARIATION 12.7 % (11.6-14.8); RED BLOOD COUNT 4.46 10^6/ul (4.70-6.10); WHITE BLOOD COUNT 5.91 K/ul (4.2-10.2)
[2020-02-27] MEDS: PROTONIX PO SCH (06:21)
[2020-02-27 06:23] LABS: ALANINE AMINOTRANSFERASE 23.4 U/L (0-50); ALBUMIN 3.48 g/dL (3.5-5.0); ALKALINE PHOSPHATASE 44.8 U/L (56-119); ASPARTATE AMINO TRANSFERASE 22.7 U/L (17-59); BILIRUBIN,TOTAL 0.59 mg/dL (0.2-1.3); BLOOD UREA NITROGEN 22.2 mg/dL (9-20); CALCIUM 8.49 mg/dL (8.4-10.2); CARBON DIOXIDE 23.4 mmol/L (22-30.0); CHLORIDE 103.9 mmol/L (98-107); CREATININE 0.92 mg/dL (0.60-1.10); GLUCOSE 111.8 mg/dL (74-106); POTASSIUM 3.78 mmol/L (3.5-5.1); SODIUM 132.1 mmol/L (134.5-145); TOTAL PROTEIN 5.99 g/dL (6.3-8.2)
[2020-02-27] MEDS: MIRALAX PO SCH (08:44)
[2020-02-27] MEDS: CATAPRES PO SCH ×2 (08:45→20:21)
[2020-02-27] MEDS: NORVASC PO SCH ×2 (08:45→20:21)
[2020-02-27] MEDS: COZAAR PO SCH (08:45)
[2020-02-27] MEDS: LEXAPRO PO SCH (08:45)
[2020-02-27] MEDS: MUCINEX PO SCH ×2 (08:45→20:21)
[2020-02-27] MEDS: NON-FORMULARY MEDICATION (Tiotropium-Olodaterol [Stiolto Respimat] 4 GM mist) IH SCH (08:46)
[2020-02-27] MEDS: [UNRECOGNIZED DRUG - OTHER] PO SCH ×2 (08:46→20:33)
[2020-02-27] MEDS: FLONASE NAS PRN (08:47)
[2020-02-27] MEDS: LOVENOX SUBCUT SCH (08:48)
[2020-02-27] MEDS: XANAX PO SCH ×2 (09:01→20:21)
[2020-02-27] MEDS: ROCEPHIN 1 GM/50 ML D5W 1 GM/50 ML BAG IV SCH (09:02)
[2020-02-27] MEDS: SOLU-CORTEF 250 MG IVP SCH ×2 (09:14→20:52)
[2020-02-27] MEDS: FLOMAX PO SCH (20:21)
[2020-02-27] MEDS: ASPIRIN EC PO SCH (20:21)
[2020-02-27] MEDS: CEPACOL SORE THROAT LOZENGE MUCOUSMEMB PRN (21:42)
[2020-02-27] MEDS: NYSTATIN ORAL SUSP PO PRN (21:42)
[2020-02-28] MEDS: VENTOLIN HFA (PER PUFF-WITH SPACER) IH SCH ×4 (04:40→19:35)
[2020-02-28 05:36] LABS: BASOPHILS % (AUTO) 0.2 % (0.0-3.0); HEMATOCRIT 42.6 % (42.0-52.0); HEMOGLOBIN 14.6 g/dl (14.0-18.0); IMMATURE GRANULOCYTE % (AUTO) 0.5 % (0.0-5.0); LYMPHOCYTES # (AUTO) 1.3 K/uL (0.60-3.4); LYMPHOCYTES % (AUTO) 20.6 (10.0-50.0); MEAN CORPUSCULAR HEMOGLOBIN 32.2 pg (27.0-31.0); MEAN CORPUSCULAR HGB CONC 34.3 (31.8-35.4); MEAN CORPUSCULAR VOLUME 93.8 fl (80.0-94.0); MONOCYTES # (AUTO) 0.4 K/uL (0.4-2.0); MONOCYTES % (AUTO) 6.9 (0-10); NEUTROPHILS # (AUTO) 4.6 K/ul (2.0-6.9); NEUTROPHILS % (AUTO) 71.8 % (42.2-75.2); PLATELET COUNT 208 10^3/uL (140-440); RDW COEFFICIENT OF VARIATION 12.7 % (11.6-14.8); RED BLOOD COUNT 4.54 10^6/ul (4.70-6.10); WHITE BLOOD COUNT 6.37 K/ul (4.2-10.2)
[2020-02-28 05:50] LABS: ALANINE AMINOTRANSFERASE 21.8 U/L (0-50); ALBUMIN 3.49 g/dL (3.5-5.0); ALKALINE PHOSPHATASE 39.1 U/L (56-119); ASPARTATE AMINO TRANSFERASE 21.2 U/L (17-59); BILIRUBIN,TOTAL 0.52 mg/dL (0.2-1.3); CALCIUM 8.79 mg/dL (8.4-10.2); CARBON DIOXIDE 23.2 mmol/L (22-30.0); CHLORIDE 103.4 mmol/L (98-107); CREATININE 0.95 mg/dL (0.60-1.10); GLUCOSE 122.8 mg/dL (74-106); POTASSIUM 4.24 mmol/L (3.5-5.1); SODIUM 132.4 mmol/L (134.5-145); TOTAL PROTEIN 5.98 g/dL (6.3-8.2)
[2020-02-28] MEDS: PROTONIX PO SCH (05:59)
[2020-02-28] MEDS: SOLU-CORTEF 250 MG IVP SCH ×2 (08:24→20:46)
[2020-02-28] MEDS: COZAAR PO SCH (08:26)
[2020-02-28] MEDS: NORVASC PO SCH ×2 (08:26→20:48)
[2020-02-28] MEDS: MUCINEX PO SCH ×2 (08:26→20:48)
[2020-02-28] MEDS: LEXAPRO PO SCH (08:26)
[2020-02-28] MEDS: CATAPRES PO SCH ×2 (08:26→20:48)
[2020-02-28] MEDS: XANAX PO SCH ×2 (08:26→20:48)
[2020-02-28] MEDS: LOVENOX SUBCUT SCH (08:27)
[2020-02-28] MEDS: MIRALAX PO SCH (08:27)
[2020-02-28] MEDS: [UNRECOGNIZED DRUG - OTHER] PO SCH ×2 (08:29→20:49)
[2020-02-28] MEDS: NON-FORMULARY MEDICATION (Tiotropium-Olodaterol [Stiolto Respimat] 4 GM mist) IH SCH (08:30)
[2020-02-28] MEDS: FLONASE NAS PRN (08:30)
[2020-02-28] MEDS: ROCEPHIN 1 GM/50 ML D5W 1 GM/50 ML BAG IV SCH (08:44)
[2020-02-28] MEDS: ASPIRIN EC PO SCH (20:48)
[2020-02-28] MEDS: FLOMAX PO SCH (20:48)
[2020-02-28] MEDS ORDERED: NYSTATIN ORAL SUSP PO PRN (23:11)
[2020-02-28] MEDS: CEPACOL SORE THROAT LOZENGE MUCOUSMEMB PRN (23:21)
[2020-02-28] MEDS: NYSTATIN ORAL SUSP PO PRN (23:21)
[2020-02-29] MEDS: VENTOLIN HFA (PER PUFF-WITH SPACER) IH SCH ×2 (05:05→10:17)
[2020-02-29 05:16] LABS: BASOPHILS % (AUTO) 0.1 % (0.0-3.0); HEMATOCRIT 43.2 % (42.0-52.0); HEMOGLOBIN 14.9 g/dl (14.0-18.0); IMMATURE GRANULOCYTE % (AUTO) 0.4 % (0.0-5.0); LYMPHOCYTES # (AUTO) 1.2 K/uL (0.60-3.4); LYMPHOCYTES % (AUTO) 15.9 (10.0-50.0); MEAN CORPUSCULAR HEMOGLOBIN 32.3 pg (27.0-31.0); MEAN CORPUSCULAR HGB CONC 34.5 (31.8-35.4); MEAN CORPUSCULAR VOLUME 93.5 fl (80.0-94.0); MONOCYTES # (AUTO) 0.4 K/uL (0.4-2.0); MONOCYTES % (AUTO) 4.7 (0-10); NEUTROPHILS # (AUTO) 5.9 K/ul (2.0-6.9); NEUTROPHILS % (AUTO) 78.9 % (42.2-75.2); PLATELET COUNT 201 10^3/uL (140-440); RDW COEFFICIENT OF VARIATION 12.8 % (11.6-14.8); RED BLOOD COUNT 4.62 10^6/ul (4.70-6.10); WHITE BLOOD COUNT 7.43 K/ul (4.2-10.2)
[2020-02-29 05:27] LABS: ALANINE AMINOTRANSFERASE 22.7 U/L (0-50); ALBUMIN 3.61 g/dL (3.5-5.0); ALKALINE PHOSPHATASE 46.5 U/L (56-119); ASPARTATE AMINO TRANSFERASE 18.7 U/L (17-59); BILIRUBIN,TOTAL 0.55 mg/dL (0.2-1.3); BLOOD UREA NITROGEN 23.5 mg/dL (9-20); CALCIUM 8.9 mg/dL (8.4-10.2); CARBON DIOXIDE 28.5 mmol/L (22-30.0); CHLORIDE 98.6 mmol/L (98-107); CREATININE 1.15 mg/dL (0.60-1.10); GLUCOSE 121.2 mg/dL (74-106); POTASSIUM 3.88 mmol/L (3.5-5.1); SODIUM 133.3 mmol/L (134.5-145); TOTAL PROTEIN 6.22 g/dL (6.3-8.2)
[2020-02-29] MEDS: PROTONIX PO SCH (05:44)
[2020-02-29 05:56] VITALS: BP 149/78; TEMP 97.7
[2020-02-29] MEDS: MIRALAX PO SCH (08:47)
[2020-02-29] MEDS: FLONASE NAS PRN (08:47)
[2020-02-29] MEDS: XANAX PO SCH (08:48)
[2020-02-29] MEDS: CATAPRES PO SCH (08:48)
[2020-02-29] MEDS: LEXAPRO PO SCH (08:48)
[2020-02-29] MEDS: COZAAR PO SCH (08:48)
[2020-02-29] MEDS: NON-FORMULARY MEDICATION (Tiotropium-Olodaterol [Stiolto Respimat] 4 GM mist) IH SCH (08:48)
[2020-02-29] MEDS: NORVASC PO SCH (08:48)
[2020-02-29] MEDS: MUCINEX PO SCH (08:48)
[2020-02-29] MEDS: LOVENOX SUBCUT SCH (08:49)
--- NOTE | 2020-02-29 08:49 | PCM.PROG ---
Attending Provider: ATTENDING PROVIDER: Dr. HAILEY SCHULTE This patient is seen with Debbie Garcia, Nurse Practitioner. DATE OF SERVICE: 02/29/20 SUBJECTIVE: This 79 year old /WHITE M was hospitalized 02/22/20. The patient is resting comfortably. Shortness of breath and wheezing has significantly improved. Did have elevated blood pressure last night. REVIEW OF SYSTEMS: CONSTITUTIONAL: No night sweats. No fatigue, malaise, lethargy. No fever or chills. HEENT: Eyes: No visual changes. No eye pain. No eye discharge. ENT: No runny nose. No epistaxis. No sinus pain. No odynophagia. No congestion. RESPIRATORY: No cough, no congestion. No hemoptysis. Shortness of breath. CARDIOVASCULAR: No angina symptoms. No CHF symptoms. No atypical chest pain for CAD. No palpitations. No orthopnea.. GASTROINTESTINAL: No abdominal pain. No nausea or vomiting. No diarrhea or const ipation. No hematemesis. No hematochezia. GENITOURINARY: No urgency. No frequency. No dysuria. No hematuria. No obstructive symptoms. No discharge. No pain. No significant abnormal bleeding. MUSCULOSKELETAL: No musculoskeletal pain; no joint swelling. NEUROLOGICAL: Awake, alert, oriented to time, place and person. No headache. No neck pain. No syncope. No seizures. No dizziness. PSYCHIATRIC: Anxious. No depression. No suicidal thoughts. No homicidal thoughts. SKIN: No rash. No lesions. No wounds. ENDOCRINE: No unexplained weight loss. No weight gain. HEMATOLOGIC/LYMPHATIC: No anemia. No purpura. No petechiae. No prolonged or excessive bleeding. No palpable lymph nodes. PHYSICAL EXAMINATION: GENERAL: The patient is awake, alert and oriented, lying in bed in no distress. VITAL SIGNS: Temperature 97.7 F, Pulse 56, Respiratory Rate 22, BP 149/78, Pulse Ox 98% HEENT: Head normocephalic, atraumatic. Eyes: Extraocular muscles are intact. Pupils are equal, round and reactive to light and accommodation. Ears: No lesions. Nose appeared normal. Throat: No exudate or erythema. NECK: Supple. No JVD, no carotid bruit. No lymphadenopathy or thyromegaly. LUNGS: Diminished breath sounds. Clear to auscultation. Percussion note normal. Chest symmetrical. HEART: S1, S2, no S3. No murmurs. No cyanosis or clubbing. No ascites. Pulses: Dorsalis pedis and posterior tibial pulses +1 to +2 both sides. ABDOMEN: Soft. Non-tender. Bowel sounds active. No CVA tenderness. No mass felt. EXTREMITIES: No edema. Full range of motion of all extremities, equal. NEUROLOGIC: No focal deficit. Cranial nerves II through XII are grossly intact. No headache, no double vision or headache. SKIN: Not dry. Intact. Turgor-normal. LYMPHATIC: No palpable lymph nodes/no lymphedema. MUSCULOSKELETAL: Normal joints with no swelling. Muscle tone is normal. LAB REVIEW: 02/29/20 04:55 02/29/20 04:55 02/29/20 04:55: Sodium 133.3 L, Potassium 3.88, Chloride 98.6, Carbon Dioxide 28.5, Anion Gap 10.08, BUN 23.5 H, Creatinine 1.15 H, Estimated GFR (MDRD) 61.00, BUN/Creatinine Ratio 20.43, Glucose 121.2 H, Calcium 8.90, Total Bilirubin 0.55, AST 18.7, ALT 22.7, Alkaline Phosphatase 46.5 L, Total Protein 6.22 L, Albumin 3.61, Globulin 2.61, Albumin/Globulin Ratio 1.38 02/29/20 04:55: WBC 7.43, RBC 4.62 L, Hgb 14.9, Hct 43.2, MCV 93.5, MCH 32.3 H, MCHC 34.5, RDW Coeff of Bhaskar 12.8, Plt Count 201, Immature Gran % (Auto) 0.4, Neut % (Auto) 78.9 H, Lymph % (Auto) 15.9, [place] % (Auto) 4.7, Eos % (Auto) 0.0, Baso % (Auto) 0.1, Neut # (Auto) 5.9, Lymph # (Auto) 1.2, [place] # (Auto) 0.4, Eos # (Auto) 0.0, Baso # (Auto) 0.0, Immature Gran # (Auto) 0.0 ASSESSMENT: Please see below. 1. Acute COPD exacerbation 2. Shortness of breath 3. Hypertension. PLAN: 1. Discharge home 2. Prednisone 20mg BID for 4 days then 10mg BID for 3 days. 3. Keflex 500mg TID for 7 days. Plan and coordination of the patient's care discussed in the presence of Ammunition Assembly I Laborer and nurse. SCRIBED BY: Valentin VELEZ scribed while in presence of service performed by Dr. Schulte/Debbie Garcia APRN on 02/29/20 ([id number])
[2020-02-29] MEDS: ROCEPHIN 1 GM/50 ML D5W 1 GM/50 ML BAG IV SCH (08:51)
[2020-02-29] MEDS: [UNRECOGNIZED DRUG - OTHER] PO SCH (08:52)
[2020-02-29] MEDS ORDERED: NYSTATIN ORAL SUSP PO SCH (09:00)
[2020-02-29] MEDS: SOLU-CORTEF 250 MG IVP SCH (09:00)
--- NOTE | 2020-02-29 10:57 | CM.DICTOOL ---
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 QUINTANILLA) HYPERGLYCEMIA SURGICAL HISTORY: CARDIAC STENT PLACEMENT- 1999 BILATERAL CATARACTS - 2014 LAST VITALS Temp Pulse Resp BP Pulse Ox 97.7 F 56 L 22 149/78 H 98 02/29/20 05:53 02/29/20 05:53 02/29/20 05:53 02/29/20 05:53 02/29/20 05:53 TAKE THESE MEDICATIONS AT HOME Albuterol Sulfate 1 VIAL PER NEBULIZER [facility] TID [facility] Last Admin: 02/29/20 05:05 Dose: 2 puff Documented by: Budesonide 0.5 mg Inhalation per Nebulizer [facility] DAILY Last Admin: Albuterol Sulfate (Ventolin HFA) 2 puff IH Q 4-6H prn Last Admin: Alprazolam (Alprazolam 0.5 Mg Tablet) 0.5 mg PO BID [facility] Last Admin: 02/29/20 08:48 Dose: 0.5 mg Documented by: Amlodipine Besylate (Amlodipine Besylate 5 Mg Tablet) 5 mg PO BID [facility] Last Admin: 02/29/20 08:48 Dose: 5 mg Documented by: Aspirin (Aspirin 81 Mg Tablet.) 81 mg PO BEDTIME [facility] Last Admin: 02/28/20 20:48 Dose: 81 mg Documented by: Clonidine (Clonidine Hcl 0.1 Mg Tablet) 0.2 mg PO BID [facility] Last Admin: 02/29/20 08:48 Dose: 0.2 mg Documented by: Escitalopram Oxalate (Escitalopram Oxalate 10 Mg Tablet) 10 mg PO DAILY [facility] Last Admin: 02/29/20 08:48 Dose: 10 mg Documented by: Fluticasone Propionate (Fluticasone Propionate 16 Gm Nasal [place]) 2 spray MICHAEL DAILY PRN PRN Reason: Nasal Congestion Last Admin: 02/29/20 08:47 Dose: 2 spray Documented by: Guaifenesin (Guaifenesin 600 Mg Tablet.Er) 600 mg PO BID [facility] Last Admin: 02/29/20 08:48 Dose: 600 mg Documented by: Losartan Potassium (Losartan Potassium 100 Mg Tablet) 100 mg PO DAILY [facility] Last Admin: 02/29/20 08:48 Dose: 100 mg Documented by: Non-Formulary Medication (Non-Formulary) 3 drop PO BID [facility] Last Admin: 02/29/20 08:52 Dose: Not Given Documented by: Non-Formulary Medication (Tiotropium-Olodaterol [Stiolto Respimat]) 2 puff IH DAILY [facility] Last Admin: 02/29/20 08:48 Dose: 2 puff Documented by: Nystatin (Nystatin Susp 500,000 Units/5 Ml Cup) 5 ml PO ACHS [facility] Pantoprazole Sodium (Pantoprazole Sodium 40 Mg Tablet.Dr) 40 mg PO QDAC [facility] Last Admin: 02/29/20 05:44 Dose: 40 mg Documented by: Polyethylene Glycol (Polyethylene Glycol 17 Gm Powd.Pack) 17 gm PO DAILY [facility] Last Admin: 02/29/20 08:47 Dose: 17 gm Documented by: Tamsulosin HCl (Tamsulosin Hcl 0.4 Mg Cap.Er.24h) 0.8 mg PO BEDTIME [facility] Last Admin: 02/28/20 20:48 Dose: 0.8 mg Documented by: Prednisone 20 mg BID for 4 days, then 10 mg BID for 3 days Keflex 500 mg TID for 7 days Nystatin 5 ml TID PRN ALLERGIES levofloxacin [From Levaquin] Adverse Reaction (Verified 11/02/19 10:25) DISCONTINUED MEDICATIONS NONE PRESCRIPTIONS PREDNISONE 20 MG BID FOR 4 DAYS, THEN 10 MG BID FOR 3 DAYS KEFLEX 500 MG TID FOR 7 DAYS NYSTATIN 5 ML TID PRN SORETHROAT SMOKING: NOT APPLICABLE DISEASE SPECIFIC EDUCATION: OXYGEN NEBULIZER TREATMENTS MEDICATIONS APPOINTMENT USE OF STEROIDS AND RISK FOR GI IRRITATION, BONE DEMINERALIZATION LAB REVIEW: 02/29/20 04:55 02/29/20 04:55 02/29/20 04:55: Sodium 133.3 L, Potassium 3.88, Chloride 98.6, Carbon Dioxide 28.5, Anion Gap 10.08, BUN 23.5 H, Creatinine 1.15 H, Estimated GFR (MDRD) 61.00, BUN/Creatinine Ratio 20.43, Glucose 121.2 H, Calcium 8.90, Total Bilirubin 0.55, AST 18.7, ALT 22.7, Alkaline Phosphatase 46.5 L, Total Protein 6.22 L, Albumin 3.61, Globulin 2.61, Albumin/Globulin Ratio 1.38 02/29/20 04:55: WBC 7.43, RBC 4.62 L, Hgb 14.9, Hct 43.2, MCV 93.5, MCH 32.3 H, MCHC 34.5, RDW Coeff of Bhaskar 12.8, Plt Count 201, Immature Gran % (Auto) 0.4, Ne ut % (Auto) 78.9 H, Lymph % (Auto) 15.9, [place] % (Auto) 4.7, Eos % (Auto) 0.0, Baso % (Auto) 0.1, Neut # (Auto) 5.9, Lymph # (Auto) 1.2, [place] # (Auto) 0.4, Eos # (Auto) 0.0, Baso # (Auto) 0.0, Immature Gran # (Auto) 0.0 PLAN: DISCHARGE HOME DIET: RESUME TOLERATED ACTIVITY: GRADUALLY RESUME TOLERATED USE OXYGEN AT ALL TIMES AT 3 LITERS CONTINUE NEBULIZER TREATMENTS OF: ALBUTEROL 1 VIAL TID BUDESONIDE 0.5 MG DAILY CONTINUE ALBUTEROL INHALER 2 PUFFS Q 4-6 HOURS PRN CONTINUE HOME OXYGEN AT 3 LITERS PER NASAL CANNULA (CURRENTLY USING 3 LITERS; INCREASED FROM 2 LITERS) CHECK YOUR BLOOD PRESSURE ONE TIME DAILY AFTER TAKING MORNING MEDICATIONS KEEP LOG OF BLOOD PRESSURE READINGS AND BRING TO NEXT OFFICE APPOINTMENT CONTINUE USE OF C-PAP AT NIGHT FOR SLEEP APNEA AN APPOINTMENT IS SCHEDULED ON February AT [address] SCHULTE/HERNESTO ANDERSON APRN/KEHINDE HERNANDES APRN CODE STATUS: DO NOT RESUSCITATE MR. PETERSON IS ALERT AND ORIENTED X 4. MR. DELGADO IS AGREEABLE TO PLANS FOR DISCHARGE HOME. HE LIVES AT HOME WITH HIS DAUGHTER. HE IS INDEPEDENT WITH ACTIVITIES OF DAILY LIVING. HE TRANSFERS SELF FROM BED TO CHAIR AND IS AMBULATORY IN THE ROOM WITHOUT STAFF ASSISTANCE OR USE OF ASSISTIVE DEVICE. MR. DELGADO USES OXYGEN CONTINUOUSLY AT ALL TIMES. HE HAS AN OXYGEN CONCENTRATOR, PORTABLE OXYGEN, NEBULIZER, PERCUSSION VEST AND C-PAP AVAILABLE FOR HIS PERSONAL USE AT HOME. MR. DELGADO HAS A GOOD APPETITE; CONSUMING 100% OF HIS MEALS. HE IS CONTINENT OF BLADDER AND BOWEL. HYDRATION STATUS IS GOOD. SKIN IS INTACT. HE WILL BE FOLLOWED IN THE OFFICE. MD HERNESTO CISSE APRN
--- NOTE | 2020-03-01 10:06 | PN ---
DATE OF SERVICE: 02/26/20 SUBJECTIVE: The patient is seen and examined with the nurse practitioner. The patient is hospitalized with COPD exacerbation. Condition is improving slow with antibiotics, nebs and steroids. We put him on 4L of oxygen. Saturation stays around 90 to 95%. TIME SPENT: More than 30 minutes. Plan and coordination of the patient's care discussed in the presence of nurse. NITIN
--- NOTE | 2020-03-01 10:14 | PN ---
DATE OF SERVICE: 02/27/20 SUBJECTIVE: 79-year-old white male hospitalized with COPD exacerbation. The patient says he is feeling better. His condition is improving. The mucus that comes out has been thick. He is able to bring it up with much less effort. REVIEW OF SYSTEMS: CONSTITUTIONAL: No night sweats. No fatigue, malaise, lethargy. No fever or chills. HEENT: Eyes: No visual changes. No eye pain. No eye discharge. ENT: No runny nose. No epistaxis. No sinus pain. No sore throat. No odynophagia. No congestion. RESPIRATORY: No cough, no congestion. No hemoptysis. No shortness of breath. CARDIOVASCULAR: No angina symptoms. No CHF symptoms. No atypical chest pain for CAD. No palpitations. No PND. No orthopnea. GASTROINTESTINAL: No abdominal pain. No nausea or vomiting. No diarrhea or constipation. No hematemesis. No hematochezia. GENITOURINARY: No urgency. No frequency. No dysuria. No hematuria. No obstructive symptoms. No discharge. No pain. No significant abnormal bleeding. MUSCULOSKELETAL: No musculoskeletal pain; no joint swelling. NEUROLOGICAL: No headache. No neck pain. No syncope. No seizures. No dizziness. PSYCHIATRIC: Not anxious. No depression. No suicidal thoughts. No homicidal thoughts. SKIN: No rash. No lesions. No wounds. ENDOCRINE: No unexplained weight loss. No weight gain. HEMATOLOGIC/LYMPHATIC: No anemia. No purpura. No petechiae. No prolonged or excessive bleeding. No palpable lymph nodes. PHYSICAL EXAMINATION: VITAL SIGNS: Temperature 97.8, pulse 72, respiratory rate 18, blood pressure 136/75, pulse ox 94% with 3L. HEENT: Head normocephalic, atraumatic. Eyes: Extraocular muscles are intact. Pupils are equal, round and reactive to light and accommodation. Ears: No lesions. Nose appeared normal. Throat: No exudate or erythema. NECK: Supple. No JVD, no carotid bruit. No lymphadenopathy or thyromegaly. LUNGS: Decreased breath sounds with mild wheeze. Percussion note normal. Chest symmetrical. HEART: S1, S2, no S3. No murmurs. No cyanosis or clubbing. No ascites. Pulses: Dorsalis pedis and posterior tibial pulses +1 to +2 bilaterally. ABDOMEN: Soft. Nontender. Bowel sounds active. No CVA tenderness. No mass felt. EXTREMITIES: No edema. Full range of motion of all extremities, equal. NEUROLOGIC: No focal deficit. Cranial nerves II through XII are grossly intact. No headache, no double vision or headache. SKIN: Not dry. Intact. Turgor - normal. LYMPHATIC: No palpable lymph nodes/no lymphedema. MUSCULOSKELETAL: Normal joints with no swelling. Muscle tone is normal. LABS: Hemoglobin 14.6, hematocrit 41, WBC 5,900, normal differential. Creatinine 0.9, BUN 22, potassium 3.7. ASSESSMENT: 1. Acute exacerbation of COPD seems to be resolving. 2. Chronic lung disease. 3. Coronary artery disease. PLAN: 1. Continue nebs, steroids, antibiotics. 2. Encourage the patient to walk. Cardiopulmonary rehab is closed and has affected this patient's health. He is much better with cardiopulmonary rehab. TIME SPENT: More than 30 minutes. Plan and coordination of the patient's care discussed in the presence of nurse. NITIN
--- NOTE | 2020-03-01 10:22 | PN ---
DATE OF SERVICE: 02/28/20 SUBJECTIVE: 79-year-old white male hospitalized with acute COPD exacerbation. The patient's condition has improved. He is feeling better. The secretions are more liquified and able to get up. REVIEW OF SYSTEMS: CONSTITUTIONAL: No night sweats. No fatigue, malaise, lethargy. No fever or chills. HEENT: Eyes: No visual changes. No eye pain. No eye discharge. ENT: No runny nose. No epistaxis. No sinus pain. No sore throat. No odynophagia. No congestion. RESPIRATORY: No cough, no congestion. No hemoptysis. CARDIOVASCULAR: No angina symptoms. No CHF symptoms. No atypical chest pain for CAD. No palpitations. No PND. No orthopnea. Less short of breath on exertion. GASTROINTESTINAL: Appetite has improved. No abdominal pain. No nausea or vomiting. No diarrhea or constipation. No hematemesis. No hematochezia. GENITOURINARY: No urgency. No frequency. No dysuria. No hematuria. No obstructive symptoms. No discharge. No pain. No significant abnormal bleeding. MUSCULOSKELETAL: No musculoskeletal pain; no joint swelling. NEUROLOGICAL: No headache. No neck pain. No syncope. No seizures. No dizziness. PSYCHIATRIC: Not anxious. No depression. No suicidal thoughts. No homicidal thoughts. SKIN: No rash. No lesions. No wounds. ENDOCRINE: No unexplained weight loss. No weight gain. HEMATOLOGIC/LYMPHATIC: No anemia. No purpura. No petechiae. No prolonged or excessive bleeding. No palpable lymph nodes. PHYSICAL EXAMINATION: VITAL SIGNS: Temperature 98.7, pulse 56, respiratory rate 18, BP 160/84, pulse ox 97% with 3L. HEENT: Head normocephalic, atraumatic. Eyes: Extraocular muscles are intact. Pupils are equal, round and reactive to light and accommodation. Ears: No lesions. Nose appeared normal. Throat: No exudate or erythema. NECK: Supple. No JVD, no carotid bruit. No lymphadenopathy or thyromegaly. LUNGS: Decreased breath sounds bilaterally. Clear to auscultation. Percussion note normal. Chest symmetrical. HEART: S1, S2, no S3. No murmurs. No cyanosis or clubbing. No ascites. Pulses: Dorsalis pedis and posterior tibial pulses +1 to +2 bilaterally. ABDOMEN: Soft. Nontender. Bowel sounds active. No CVA tenderness. No mass felt. EXTREMITIES: No edema. Full range of motion of all extremities, equal. NEUROLOGIC: No focal deficit. Cranial nerves II through XII are grossly intact. No headache, no double vision or headache. SKIN: Not dry. Intact. Turgor - normal. LYMPHATIC: No palpable lymph nodes/no lymphedema. MUSCULOSKELETAL: Normal joints with no swelling. Muscle tone is normal. ASSESSMENT: 1. Acute exacerbation of COPD seems to be resolving with steroids, nebs, and antibiotics. CONDITION: Stable. TIME SPENT: More than 30 minutes. Plan and coordination of the patient's care discussed in the presence of nurse. NITIN
--- NOTE | 2020-03-01 13:55 | PN ---
DATE OF SERVICE: 02/29/2020 SUBJECTIVE: The patient was seen and examined with Nurse Practitioner. The patient's condition is stable. He is going to be discharged home on antibiotics and steroids and NEBS. Condition has improved. Definitely need pulmonary rehab which has been stopped because of COVID. TIME SPENT: More than 30 minutes. Plan and coordination of the patient's care discussed in the presence of nurse. NITIN
--- NOTE | 2020-03-01 13:56 | PN ---
02/22/2020: Level 5 02/23/2020: Intermediate 02/24/2020: Intermediate 02/25/2020: Intermediate 02/26/2020: Intermediate 02/27/2020: Intermediate 02/28/2020: Intermediate 02/29/2020: D as in discharge MTDD
--- NOTE | 2020-03-08 13:00 | DS ---
DATE OF SERVICE: 02/29/20 FINAL DIAGNOSIS: 1. ACUTE COPD EXACERBATION 2. CHRONIC RESPIRATORY FAILURE 3. HYPERTENSION 4. HYPONATREMIA HISTORY: 5. CHRONIC RESPIRATORY FAILURE 6. CHRONIC COPD 7. PALPITATIONS 8. RT SCIATICA 9. CHRONIC BRONCHITIS 10. CORONARY ARTERY DISEASE WITH STENT 11. SYMPTOMATIC BRADYCARDIA 12. ANXIETY 13. SECONDARY POLYCYTHEMIA 14. HYPERTENSION 15. OXYGEN DEPENDENT 16. SLEEP APNEA, USES CPAP 17. BPH (DR. QUINTANILLA) 18. HYPERGLYCEMIA SURGICAL HISTORY: 19. CARDIAC STENT PLACEMENT- 1999 20. BILATERAL CATARACTS - 2014 LAST VITALS Temp Pulse Resp BP Pulse Ox 97.7 F 56 L 22 149/78 H 98 02/29/20 05:53 02/29/20 05:53 02/29/20 05:53 02/29/20 05:53 02/29/20 05:53 DISCHARGE INSTRUCTIONS: 1. DISCHARGE HOME 2. AN APPOINTMENT IS SCHEDULED ON February AT [address] SCHULTE/HERNESTO ANDERSON APRN/KEHINDE HERNANDES APRN 3. USE OXYGEN AT ALL TIMES AT 3 LITERS 4. CONTINUE NEBULIZER TREATMENTS OF: ALBUTEROL 1 VIAL TID, BUDESONIDE 0.5 MG DAILY 5. CONTINUE ALBUTEROL INHALER 2 PUFFS Q 4-6 HOURS PRN 6. CONTINUE HOME OXYGEN AT 3 LITERS PER NASAL CANNULA (CURRENTLY USING 3 LITERS; INCREASED FROM 2 LITERS) 7. CHECK YOUR BLOOD PRESSURE ONE TIME DAILY AFTER TAKING MORNING MEDICATIONS 8. KEEP LOG OF BLOOD PRESSURE READINGS AND BRING TO NEXT OFFICE APPOINTMENT 9. CONTINUE USE OF C-PAP AT NIGHT FOR SLEEP APNEA MEDICATIONS AT DISCHARGE: Albuterol Sulfate 1 VIAL PER NEBULIZER [facility] TID [facility] Last Admin: 02/29/20 05:05 Dose: 2 puff Documented by: Budesonide 0.5 mg Inhalation per Nebulizer [facility] DAILY Last Admin: Albuterol Sulfate (Ventolin HFA) 2 puff IH Q 4-6H prn Last Admin: Alprazolam (Alprazolam 0.5 Mg Tablet) 0.5 mg PO BID [facility] Last Admin: 02/29/20 08:48 Dose: 0.5 mg Documented by: Amlodipine Besylate (Amlodipine Besylate 5 Mg Tablet) 5 mg PO BID [facility] Last Admin: 02/29/20 08:48 Dose: 5 mg Documented by: Aspirin (Aspirin 81 Mg Tablet.) 81 mg PO BEDTIME [facility] Last Admin: 02/28/20 20:48 Dose: 81 mg Documented by: Clonidine (Clonidine Hcl 0.1 Mg Tablet) 0.2 mg PO BID [facility] Last Admin: 02/29/20 08:48 Dose: 0.2 mg Documented by: Escitalopram Oxalate (Escitalopram Oxalate 10 Mg Tablet) 10 mg PO DAILY [facility] Last Admin: 02/29/20 08:48 Dose: 10 mg Documented by: Fluticasone Propionate (Fluticasone Propionate 16 Gm Nasal [place]) 2 spray MICHAEL DAILY PRN PRN Reason: Nasal Congestion Last Admin: 02/29/20 08:47 Dose: 2 spray Documented by: Guaifenesin (Guaifenesin 600 Mg Tablet.Er) 600 mg PO BID [facility] Last Admin: 02/29/20 08:48 Dose: 600 mg Documented by: Losartan Potassium (Losartan Potassium 100 Mg Tablet) 100 mg PO DAILY [facility] Last Admin: 02/29/20 08:48 Dose: 100 mg Documented by: Non-Formulary Medication (Non-Formulary) 3 drop PO BID [facility] Last Admin: 02/29/20 08:52 Dose: Not Given Documented by: Non-Formulary Medication (Tiotropium-Olodaterol ) 2 puff IH DAILY [facility] Last Admin: 02/29/20 08:48 Dose: 2 puff Documented by: Nystatin (Nystatin Susp 500,000 Units/5 Ml Cup) 5 ml PO ACHS [facility] Pantoprazole Sodium (Pantoprazole Sodium 40 Mg Tablet.Dr) 40 mg PO QDAC [facility] Last Admin: 02/29/20 05:44 Dose: 40 mg Documented by: Polyethylene Glycol (Polyethylene Glycol 17 Gm Powd.Pack) 17 gm PO DAILY [facility] Last Admin: 02/29/20 08:47 Dose: 17 gm Documented by: Tamsulosin HCl (Tamsulosin Hcl 0.4 Mg Cap.Er.24h) 0.8 mg PO BEDTIME [facility] Last Admin: 02/28/20 20:48 Dose: 0.8 mg Documented by: Prednisone 20 mg BID for 4 days, then 10 mg BID for 3 days Keflex 500 mg TID for 7 days Nystatin 5 ml TID PRN NEW PRESCRIPTIONS: PREDNISONE 20 MG BID FOR 4 DAYS, THEN 10 MG BID FOR 3 DAYS KEFLEX 500 MG TID FOR 7 DAYS NYSTATIN 5 ML TID PRN SORETHROAT DISCONTINUED MEDICATIONS: NONE DIET INSTRUCTIONS: RESUME TOLERATED ACTIVITY: GRADUALLY RESUME TOLERATED USE OXYGEN AT ALL TIMES AT 3 LITERS SMOKING: NOT APPLICABLE DISEASE SPECIFIC EDUCATION: OXYGEN NEBULIZER TREATMENTS MEDICATIONS APPOINTMENT USE OF STEROIDS AND RISK FOR GI IRRITATION, BONE DEMINERALIZATION HOSPITAL COURSE: This is a white male who went to the emergency room with shortness of breath which had been worsening. He has a long history of COPD, is oxygen dependent. He came to the hospital with his 02 on 3L. P02 on ABGs was initially in the high 50's. He had some bilateral wheezing along with rhonchi and thick productive sputum, was found to be hyponatremic with sodium of 131. He was admitted, placed on Normal Saline IV at 75 cc's an hour, started on Rocephin 1 gm IV daily along with Zithromax 500 mg p.o. daily for three days, Solu-Cortef 125 IV q.8hr. Over the course of the next several days his breathing did steadily improve. Wheezing improved. He has been eating well. Sodium has improved and is at a normal level. Kidney function is improved. BUN 23, creatinine 1.15. He did have a slight elevation in blood pressure the day of discharge however I do believe it is because he has received IV fluids for the past several days, 146/78 at the time of discharge. He has a blood pressure cuff at home which he will continue to check once a day. He will go home with Prednisone 20 mg b.i.d. for four days and then 10 mg b.i.d. for three days, Keflex 500 mg t.i.d. for 7 days and Nystatin swish and spit for sore throat. He has a nebulizer machine at home. He is to continue with nebs t.i.d. BANDAR along with Pulmicort b.i.d. Again, he has chronic respiratory failure, sees Dr. Ontiveros. I do believe he has reached his baseline. He has been up and about with minimal shortness of breath with exertion. Again, wheezing has resolved. His sputum has become thinner and less productive. We will followup with him in the office in the next week or two. He is discharged in stable condition. TIME SPENT: More than 60 minutes. [facility] [place] DIVISIONEmeterio
== END 2020-02-29 13:47 | disposition home or self-care (01) | DRG 204 ==
LOC: ED 09:52 → MEDSURG A 14:58
PROVIDERS: ADMIT Internal Medicine; ATTEND Internal Medicine
DX: D75.1 Secondary polycythemia; I10 Essential (primary) hypertension; J96.10 Chronic respiratory failure, unspecified whether with hypoxia or hypercapnia; J43.9 Emphysema, unspecified; E78.5 Hyperlipidemia, unspecified; R53.1 Weakness; R09.02 Hypoxemia; E87.1 Hypo-osmolality and hyponatremia; I25.10 Atherosclerotic heart disease of native coronary artery without angina pectoris; R06.02 Shortness of breath; J42 Unspecified chronic bronchitis; Z20.828 Contact with and (suspected) exposure to other viral communicable diseases

== ENCOUNTER 2020-03-27 15:31 | Inpatient (IN) ==
[2020-03-27 15:55] LABS: BASOPHILS % (AUTO) 0.2 % (0.0-3.0); EOSINOPHILS # (AUTO) 0.1 K/ul (0.0-0.7); HEMATOCRIT 49.7 % (42.0-52.0); IMMATURE GRANULOCYTE % (AUTO) 0.4 % (0.0-5.0); LYMPHOCYTES # (AUTO) 1.4 K/uL (0.60-3.4); LYMPHOCYTES % (AUTO) 30.6 (10.0-50.0); MEAN CORPUSCULAR HEMOGLOBIN 31.7 pg (27.0-31.0); MEAN CORPUSCULAR HGB CONC 34.2 (31.8-35.4); MEAN CORPUSCULAR VOLUME 92.7 fl (80.0-94.0); MONOCYTES # (AUTO) 0.5 K/uL (0.4-2.0); MONOCYTES % (AUTO) 10.9 (0-10); NEUTROPHILS # (AUTO) 2.6 K/ul (2.0-6.9); NEUTROPHILS % (AUTO) 54.9 % (42.2-75.2); PLATELET COUNT 214 10^3/uL (140-440); RDW COEFFICIENT OF VARIATION 12.7 % (11.6-14.8); RED BLOOD COUNT 5.36 10^6/ul (4.70-6.10); WHITE BLOOD COUNT 4.68 K/ul (4.2-10.2)
[2020-03-27] MEDS ORDERED: NITROSTAT SL STA (15:56)
[2020-03-27] MEDS ORDERED: [UNRECOGNIZED DRUG - OTHER] IV SCH (16:00)
[2020-03-27] MEDS ORDERED: NITROGLYCERIN 25 MG/250 ML IV SCH (16:00)
[2020-03-27] MEDS ORDERED: SOLU-MEDROL 125 MG IVP STA (16:01)
[2020-03-27] MEDS ORDERED: SODIUM CHLORIDE 500 ML IV STA (16:03)
--- NOTE | 2020-03-27 16:04 | DI ---
EXAM: Chest one view HISTORY: Chest pain, shortness of breath COMPARISON: 02/22/2020 TECHNIQUE: Single view of the chest was performed FINDINGS: Normal heart size and mediastinal contour. Emphysematous changes with biapical scarring, unchanged. Calcified mediastinal lymph nodes/granulomas, consistent with old granulomatous disease. No pleural effusion or pneumothorax. No acute osseous abnormality. IMPRESSION: Emphysema without acute findings.
[2020-03-27 16:08] LABS: ALANINE AMINOTRANSFERASE 20.5 U/L (0-50); ALBUMIN 4.79 g/dL (3.5-5.0); ALKALINE PHOSPHATASE 72.9 U/L (56-119); ASPARTATE AMINO TRANSFERASE 31.7 U/L (17-59); BILIRUBIN,TOTAL 0.88 mg/dL (0.2-1.3); BLOOD UREA NITROGEN 15.1 mg/dL (9-20); CALCIUM 9.59 mg/dL (8.4-10.2); CARBON DIOXIDE 27.3 mmol/L (22-30.0); CHLORIDE 97.6 mmol/L (98-107); GLUCOSE 104.2 mg/dL (74-106); POTASSIUM 4.53 mmol/L (3.5-5.1); SODIUM 133.5 mmol/L (134.5-145); TOTAL PROTEIN 7.97 g/dL (6.3-8.2)
[2020-03-27] MEDS ORDERED: SODIUM CHLORIDE 1,000 ML IV STA (16:15)
[2020-03-27 16:46] LABS: ABG PH 7.35 (7.35-7.45)
[2020-03-27] MEDS ORDERED: NON-FORMULARY MEDICATION (Tiotropium-Olodaterol [Stiolto Respimat] 4 GM mist) IH SCH (17:08)
--- NOTE | 2020-03-27 17:24 | ED.PDOC ---
General ED Provider: Dr. MARIS DIAZ Chief Complaint: Chest Pain Stated Complaint: CARTAGENA, COPD exacerbation, chest pain Time Seen by Physician: 15:31 Mode of Arrival: Wheelchair Information Source: Patient Primary Care Provider: HAILEY GONZALEZ Nursing and Triage Documentation Reviewed and Agree: Yes Does patient meet sepsis criteria?: No System Inflammatory Response Syndrome: Not Applicable Sepsis Protocol: For patient's 13 years and over: Temp is 96.8 and below OR 101 and greater Pulse >90 BPM Resp >20/minute Acutely Altered Mental Status Are patient's symptoms suggestive of a new infection, such as: -Pneumonia -Skin, Soft Tissue -Endocarditis -UTI -Bone, Joint Infection -Implantable Device -Acute Abdominal Infection -Wound Infection -Meningitis -Blood Stream Catheter Infection -Unknown Miscellaneous Complaint Exam Physical Examination Complaint/Exam Onset/Duration: several days Symptoms Are: Worse Timing: Constant Episodes Lasting: Days Initial Severity: Moderate Current Severity: Severe Location: cerebral, pulmonary Character: pounding CARTAGENA, SOB, chest pain. Aggravating: movement Alleviating: "nothing" Associated Signs and Symptoms: Pounding CARTAGENA, CHest Pain Related History: Reports No other known history Specific Findings: 188/120 Differential Diagnoses: Hypertensive Emergency ... Urgency Review of Systems Review Of Systems Constitutional: Reports Weakness Eyes: Reports No symptoms Ears, Nose, Mouth, Throat: Reports No symptoms Respiratory: Reports Short of air Cardiac: Reports Chest pain and Lightheadedness GI: Reports No symptoms : Reports No symptoms Musculoskeletal: Reports Other Skin: Reports No symptoms Neurological: Reports Anxiety, Depressed and Headache Endocrine: Reports No symptoms Hematologic/Lymphatic: Reports No symptoms All Other Systems: Reviewed and Negative [facility] Medical History (Updated 03/27/20 @ 17:25 by MARIS DIAZ) Blood disease Chronic obstructive pulmonary disease Gastroesophageal reflux disease Hypertension Seasonal allergies Stage 3 chronic kidney disease Family History Mother Obstetric anesthesia problems Emphysema of lung Social History Smoking and tobacco status: Former smoker History of recent travel: No Surgical History Status post tonsillectomy Physical Exam Physical Exam Appearance: Reports Ill-appearing Ill-appearing: Moderate Pain Distress: Moderate Eyes: Reports ABDIAS, EOMI and Conjunctiva clear ENT: Reports Ears normal, Nose normal, Oropharynx normal and Dry mucosa Neck: Nonsupple Respiratory: Reports Breath sounds diminished and Rhonchi Cardiovascular: Reports RRR and Pulses normal GI/: Reports Bowel sounds normal Musculoskeletal: Reports Limited strength Skin: Reports Dry and Pale Neurological: Reports Sensation intact, Cranial nerves intact and Alert Psychiatric: Reports Anxious and Depressed Interpretation Radiology Interpretation Radiology Interpretation By: Radiologist Radiology Results: No acute changes Exam Interpreted: Portable CXR Xray Comments: Emphysema w No acute findings EKG Interpretation Time of EKG #1: 15:31 Rate: Normal Rhythm: Sinus Ectopy: None [place]: Right ST Segment: Normal Interpretation: NSR w R axis Physician Notification Case Discussed Physician Notified: Carlos Cevallos MD Time of Notification: 16:30 Critical Care Note Critical Care Note Total Critical Care Time (mins): 120 Course Course Hematology/Chemistry: 03/27/20 15:45 03/27/20 15:45 Orders, Labs, Meds: Lab Review 03/27/20 03/27/20 03/27/20 15:45 15:45 15:45 WBC 4.68 RBC 5.36 Hgb 17.0 Hct 49.7 MCV 92.7 MCH 31.7 H MCHC 34.2 RDW Coeff of Bhaskar 12.7 Plt Count 214 Immature Gran % (Auto) 0.4 Neut % (Auto) 54.9 Lymph % (Auto) 30.6 [place] % (Auto) 10.9 H Eos % (Auto) 3.0 Baso % (Auto) 0.2 Neut # (Auto) 2.6 Lymph # (Auto) 1.4 [place] # (Auto) 0.5 Eos # (Auto) 0.1 Baso # (Auto) 0.0 Immature Gran # (Auto) 0.0 Puncture Site Base Excess O2 Saturation ABG pH ABG pCO2 ABG pO2 ABG HCO3 ABG Total CO2 Albino Test Hemoglobin Oxyhemoglobin Carboxyhemoglobin Total Hemoglobin O2 Delivery Device Oxygen Liter Flow Sodium 133.5 L Potassium 4.53 Chloride 97.6 L Carbon Dioxide 27.3 Anion Gap 13.13 BUN 15.1 Creatinine 1.00 Estimated GFR (MDRD) 72.00 BUN/Creatinine Ratio 15.10 Glucose 104.2 Calcium 9.59 Total Bilirubin 0.88 AST 31.7 ALT 20.5 Alkaline Phosphatase 72.9 Troponin I < 0.012 Total Protein 7.97 Albumin 4.79 Globulin 3.18 Albumin/Globulin Ratio 1.50 03/27/20 16:37 WBC RBC Hgb Hct MCV MCH MCHC RDW Coeff of Bhaskar Plt Count Immature Gran % (Auto) Neut % (Auto) Lymph % (Auto) [place] % (Auto) Eos % (Auto) Baso % (Auto) Neut # (Auto) Lymph # (Auto) [place] # (Auto) Eos # (Auto) Baso # (Auto) Immature Gran # (Auto) Puncture Site Rrad Base Excess 2.0 O2 Saturation 95.3 ABG pH 7.35 ABG pCO2 50.0 H ABG pO2 81.0 L ABG HCO3 27.6 ABG Total CO2 29.1 H [place]ino Test Yes Hemoglobin 1.1 Oxyhemoglobin 94.6 L Carboxyhemoglobin 1.9 H Total Hemoglobin 15.8 O2 Delivery Device Cannula Oxygen Liter Flow 3.00 Sodium Potassium Chloride Carbon Dioxide Anion Gap BUN Creatinine Estimated GFR (MDRD) BUN/Creatinine Ratio Glucose Calcium Total Bilirubin AST ALT Alkaline Phosphatase Troponin I Total Protein Albumin Globulin Albumin/Globulin Ratio Orders Category Date Time Status ADMIT PATIENT INPATIENT .TO [facility] (MONITORED BED) ADMISSION 03/27/20 16:57 Ordered ABG DRAW REQUEST Stat CARDIO 03/27/20 16:28 Completed EKG-(ED ONLY) Stat CARDIO 03/27/20 15:30 Completed OXYGEN Routine CARDIO 03/27/20 16:58 Ordered ACTIVITY .Complete BR CARE 03/27/20 16:58 Ordered GIVE HS SNACK 2100 CARE 03/27/20 17:00 Ordered INTAKE & OUTPUT Q8HR CARE 03/27/20 16:58 Ordered TELEMETRY MONITORING TELE CARE 03/27/20 16:57 Ordered VITAL SIGNS Q4HR CARE 03/27/20 16:58 Ordered VITAL SIGNS Q8HR CARE 03/27/20 16:58 Ordered ADA 2000 DELANEY DIET DIETARY 03/27/20 Breakfast Ordered HS SNACK DIETARY 03/27/20 Dinner Ordered REGULAR DIET DIETARY 03/27/20 Dinner Ordered ED APPLY O2 .ONCE EMERGENCY 03/27/20 15:48 Active ABG COOX Stat LAB 03/27/20 16:37 Completed CBC W/ AUTO DIFF Stat LAB 03/27/20 15:45 Received COMPREHENSIVE METABOLIC PANEL Stat LAB 03/27/20 15:45 Completed TROPONIN I Stat LAB 03/27/20 15:45 Completed URINALYSIS C & S IF INDICATED Stat LAB 03/27/20 15:52 Uncollected Methylprednisolone Sod Succ/Pf [Solu-Medrol 125 mg] MEDS 03/27/20 16:01 Discontinued 125 mg IVP ONCE STA Nitroglycerin [Nitrostat] MEDS 03/27/20 15:56 Discontinued 0.4 mg SL ONCE STA Sodium Chloride 0.9% [Sodium Chloride] 1,000 ml MEDS 03/27/20 16:15 Active IV BOLUS RESUSCITATION STATUS Routine OTHERS 03/27/20 16:58 Ordered CHEST, 1V AP ONLY Stat RADS 03/27/20 15:46 Taken Medications Generic Name Dose Route Start Last Admin Trade Name Freq PRN Reason Stop Dose Admin Amlodipine Besylate 5 mg 03/28/20 09:00 Amlodipine Besylate 5 Mg Tablet PO BID [facility] Aspirin 81 mg 03/27/20 17:30 Aspirin 81 Mg Tablet. PO BEDTIME [facility] Budesonide 1 mg 03/28/20 09:00 Budesonide 0.5 Mg/2 Ml Vial.Neb NEB DAILY [facility] Carvedilol 6.25 mg 03/27/20 17:30 Carvedilol 6.25 Mg Tablet PO DAILY [facility] Clonidine 0.4 mg 03/27/20 21:00 Clonidine Hcl 0.1 Mg Tablet PO BID [facility] Guaifenesin 600 mg 03/27/20 21:00 Guaifenesin 600 Mg Tablet.Er PO BID [facility] Sodium Chloride 1,000 mls @ 125 mls/hr 03/27/20 16:15 03/27/20 16:16 Sodium Chloride IV 03/28/20 00:14 125 mls/hr BOLUS STA Administration Losartan Potassium 100 mg 03/28/20 09:00 Losartan Potassium 100 Mg Tablet PO DAILY [facility] Non-Formulary Medication 2 puff 03/27/20 17:08 Tiotropium-Olodaterol [Stiolto Respimat] IH DAILY [facility] Tamsulosin HCl 0.8 mg 03/28/20 09:00 Tamsulosin Hcl 0.4 Mg Cap.Er.24h PO DAILY [facility] Discontinued Medications Generic Name Dose Route Start Last Admin Trade Name Freq PRN Reason Stop Dose Admin Methylprednisolone Sodium Succinate 125 mg 03/27/20 16:01 03/27/20 16:14 Methylprednisolone Sod Succ/Pf 125 Mg/2 Ml Vial IVP 03/27/20 16:02 125 mg ONCE STA Administration Nitroglycerin 0.4 mg 03/27/20 15:56 03/27/20 16:01 Nitroglycerin 0.4 Mg Tab.Subl SL 03/27/20 15:57 0.4 mg ONCE STA Administration Vital Signs: Temp Pulse Resp BP Pulse Ox 03/27/20 16:24 135/77 03/27/20 15:31 97.2 F L 72 24 188/120 H 97 Discharge Plan Discharge Patient Disposition: ADMITTED INPATIENT Discharge Problem: Pulmonary emphysema, COPD with acute exacerbation, Chest pain Hypertension Qualifiers: Hypertension type: unspecified Qualified Code(s): I10 - Essential (primary) hypertension ED Provider: MARIS DIAZ Condition: Stable Physician Progress Note: [Pt reports he has been feeling lightheaded and his BP monitor reads "high" x several days. Worse today. Pt c/o pounding CARTAGENA, SOB and weakness. Good response to 0.4 mg Nitroglycerin SL, IV Nitro x 10 minutes and BP < 160 SBP. 135/78 at 16:30. Pt reports no CARTAGENA and feels better. Pt is DNR; however, he does take his BP twice daily. Pt admitted to Telemetry, Dr. Mart Gonzalez.
[2020-03-27] MEDS: ASPIRIN EC PO SCH ×2 (17:32→20:23)
[2020-03-27] MEDS: COREG PO SCH (17:33)
[2020-03-27 17:42] VITALS: BMI 27.3
[2020-03-27] MEDS ORDERED: CATAPRES PO STA (18:20)
[2020-03-27] MEDS ORDERED: VASOTEC IV IVP PRN (18:26)
[2020-03-27 19:00] LABS: BILIRUBIN,URINE Negative (NEGATIVE); CLARITY,URINE Clear (CLEAR); COLOR,URINE Yellow (YELLOW); GLUCOSE, URINE (UA) Negative (NEGATIVE); KETONES,URINE Negative (NEGATIVE); LEUKOCYTE ESTERASE ,URINE Negative (NEGATIVE); NITRITE,URINE Negative (NEGATIVE); PROTEIN,URINE 2+ (NEGATIVE); URINE, BLOOD Trace-intact (NEGATIVE); UROBILINOGEN,URINE 0.2 (0.2)
[2020-03-27 19:09] LABS: SQUAMOUS EPITHELIAL CELL,UR 0-2 (0-5)
[2020-03-27] MEDS: VENTOLIN HFA (PER PUFF-WITH SPACER) IH SCH (20:05)
[2020-03-27] MEDS: XANAX PO SCH (20:22)
[2020-03-27] MEDS: MUCINEX PO SCH (20:22)
[2020-03-27] MEDS ORDERED: CATAPRES PO ONE (20:30)
[2020-03-27] MEDS ORDERED: CATAPRES PO SCH (21:00)
[2020-03-27] MEDS ORDERED: CEPACOL SORE THROAT LOZENGE MUCOUSMEMB PRN (21:58)
[2020-03-28] MEDS: VENTOLIN HFA (PER PUFF-WITH SPACER) IH SCH ×3 (04:40→20:10)
[2020-03-28 05:31] LABS: HEMATOCRIT 45.8 % (42.0-52.0); IMMATURE GRANULOCYTE % (AUTO) 0.2 % (0.0-5.0); LYMPHOCYTES # (AUTO) 0.7 K/uL (0.60-3.4); LYMPHOCYTES % (AUTO) 17.1 (10.0-50.0); MEAN CORPUSCULAR HEMOGLOBIN 31.7 pg (27.0-31.0); MEAN CORPUSCULAR HGB CONC 34.9 (31.8-35.4); MEAN CORPUSCULAR VOLUME 90.9 fl (80.0-94.0); MONOCYTES % (AUTO) 0.7 (0-10); NEUTROPHILS # (AUTO) 3.4 K/ul (2.0-6.9); PLATELET COUNT 218 10^3/uL (140-440); RDW COEFFICIENT OF VARIATION 12.4 % (11.6-14.8); RED BLOOD COUNT 5.04 10^6/ul (4.70-6.10); WHITE BLOOD COUNT 4.15 K/ul (4.2-10.2)
[2020-03-28 05:43] LABS: ALANINE AMINOTRANSFERASE 19.3 U/L (0-50); ALBUMIN 4.25 g/dL (3.5-5.0); ALKALINE PHOSPHATASE 66.1 U/L (56-119); ASPARTATE AMINO TRANSFERASE 22.4 U/L (17-59); BILIRUBIN,TOTAL 0.55 mg/dL (0.2-1.3); BLOOD UREA NITROGEN 15.9 mg/dL (9-20); CALCIUM 9.38 mg/dL (8.4-10.2); CHLORIDE 97.7 mmol/L (98-107); CREATININE 1.01 mg/dL (0.60-1.10); GLUCOSE 201.3 mg/dL (74-106); POTASSIUM 4.49 mmol/L (3.5-5.1); SODIUM 129.5 mmol/L (134.5-145); TOTAL PROTEIN 7.12 g/dL (6.3-8.2)
[2020-03-28] MEDS ORDERED: PULMICORT 0.5 MG/2 ML NEB SCH (09:00)
[2020-03-28] MEDS: CATAPRES PO SCH ×2 (09:08→20:29)
[2020-03-28] MEDS: MINOXIDIL PO SCH ×2 (09:09→20:29)
[2020-03-28] MEDS: NORVASC PO SCH ×2 (09:09→20:28)
[2020-03-28] MEDS: COZAAR PO SCH (09:09)
[2020-03-28] MEDS: DECADRON IM SCH (09:09)
[2020-03-28] MEDS: COREG PO SCH (09:09)
--- NOTE | 2020-03-28 09:25 | PCM.PROG ---
Attending Provider: ATTENDING PROVIDER: Dr. HAILEY SCHULTE This patient is seen with Debbie Garcia, Nurse Practitioner. DATE OF SERVICE: 03/28/20 SUBJECTIVE: This 79 year old /WHITE M was hospitalized 03/27/20. The patient is resting comfortably. The patient is complaining of headache worse when blood pressure is elevated. He is also complaining of left sided pain, atypical for chest pain. REVIEW OF SYSTEMS: CONSTITUTIONAL: No night sweats. No fatigue, malaise, lethargy. No fever or chills. Weakness. HEENT: Eyes: No visual changes. No eye pain. No eye discharge. ENT: No runny nose. No epistaxis. No sinus pain. No odynophagia. No congestion. RESPIRATORY: No cough, no congestion. No hemoptysis. No shortness of breath. CARDIOVASCULAR: No angina symptoms. No CHF symptoms. No atypical chest pain for CAD. No palpitations. No orthopnea. Left sided pain. GASTROINTESTINAL: No abdominal pain. No nausea or vomiting. No diarrhea or constipation. No hematemesis. No hematochezia. GENITOURINARY: No urgency. No frequency. No dysuria. No hematuria. No obstructive symptoms. No discharge. No pain. No significant abnormal bleeding. MUSCULOSKELETAL: No musculoskeletal pain; no joint swelling. NEUROLOGICAL: Awake, alert, oriented to time, place and person. Headache. No neck pain. No syncope. No seizures. No dizziness. PSYCHIATRIC: Not anxious. No depression. No suicidal thoughts. No homicidal thoughts. SKIN: No rash. No lesions. No wounds. ENDOCRINE: No unexplained weight loss. No weight gain. HEMATOLOGIC/LYMPHATIC: No anemia. No purpura. No petechiae. No prolonged or excessive bleeding. No palpable lymph nodes. PHYSICAL EXAMINATION: GENERAL: The patient is awake, alert and oriented, sitting in bed in no distress. VITAL SIGNS: Temperature 97.6 F, Pulse 52, Respiratory Rate 14, BP 154/66, Pulse Ox 98% HEENT: Head normocephalic, atraumatic. Eyes: Extraocular muscles are intact. Pupils are equal, round and reactive to light and accommodation. Ears: No lesions. Nose appeared normal. Throat: No exudate or erythema. NECK: Supple. No JVD, no carotid bruit. No lymphadenopathy or thyromegaly. LUNGS: Diminished breath sounds. Clear to auscultation. Percussion note normal. Chest symmetrical. HEART: S1, S2, no S3. No murmurs. No cyanosis or clubbing. No ascites. Pulses: Dorsalis pedis and posterior tibial pulses +1 to +2 both sides. ABDOMEN: Soft. Non-tender. Bowel sounds active. No CVA tenderness. No mass felt. EXTREMITIES: No edema. Full range of motion of all extremities, equal. NEUROLOGIC: No focal deficit. Cranial nerves II through XII are grossly intact. No headache, no double vision or headache. SKIN: Not dry. Intact. Turgor-normal. LYMPHATIC: No palpable lymph nodes/no lymphedema. MUSCULOSKELETAL: Normal joints with no swelling. Muscle tone is normal. LAB REVIEW: 03/28/20 05:00 03/28/20 05:00 03/28/20 05:00: Sodium 129.5 L, Potassium 4.49, Chloride 97.7 L, Carbon Dioxide 23.0, Anion Gap 13.29, BUN 15.9, Creatinine 1.01, Estimated GFR (MDRD) 71.00, BUN/Creatinine Ratio 15.74, Glucose 201.3 H D, Calcium 9.38, Total Bilirubin 0.55, AST 22.4, ALT 19.3, Alkaline Phosphatase 66.1, Total Protein 7.12, Albumin 4.25, Globulin 2.87, Albumin/Globulin Ratio 1.48 03/28/20 05:00: WBC 4.15 L, RBC 5.04, Hgb 16.0, Hct 45.8, MCV 90.9, MCH 31.7 H, MCHC 34.9, RDW Coeff of Bhaskar 12.4, Plt Count 218, Immature Gran % (Auto) 0.2, Neut % (Auto) 82.0 H, Lymph % (Auto) 17.1, [place] % (Auto) 0.7, Eos % (Auto) 0.0, Baso % (Auto) 0.0, Neut # (Auto) 3.4, Lymph # (Auto) 0.7, [place] # (Auto) 0.0 L, Eos # (Auto) 0.0, Baso # (Auto) 0.0, Immature Gran # (Auto) 0.0 03/27/20 18:50: Urine Color Yellow, Urine Clarity Clear, Urine pH 7.0, Ur Specific Alpha 1.025, Urine Protein 2+ H, Urine Glucose (UA) Negative, Urine Ketones Negative, Urine Blood Trace-intact H, Urine Nitrite Negative, Urine Bilirubin Negative, Urine Urobilinogen 0.2, Ur Leukocyte Esterase Negative, Ur Squamous Epith Cells 0-2 03/27/20 16:37: Puncture Site Rrad, Base Excess 2.0, O2 Saturation 95.3, ABG pH 7.35, ABG pCO2 50.0 H, ABG pO2 81.0 L, ABG HCO3 27.6, ABG Total CO2 29.1 H, Albino Test Yes, Hemoglobin 1.1, Oxyhemoglobin 94.6 L, Carboxyhemoglobin 1.9 H, Total Hemoglobin 15.8, O2 Delivery Device Cannula, Oxygen Liter Flow 3.00 03/27/20 15:45: Sodium 133.5 L, Potassium 4.53, Chloride 97.6 L, Carbon Dioxide 27.3, Anion Gap 13.13, BUN 15.1, Creatinine 1.00, Estimated GFR (MDRD) 72.00, BUN/Creatinine Ratio 15.10, Glucose 104.2, Calcium 9.59, Total Bilirubin 0.88, AST 31.7, ALT 20.5, Alkaline Phosphatase 72.9, Total Protein 7.97, Albumin 4.79, Globulin 3.18, Albumin/Globulin Ratio 1.50 03/27/20 15:45: WBC 4.68, RBC 5.36, Hgb 17.0, Hct 49.7, MCV 92.7, MCH 31.7 H, MCHC 34.2, RDW Coeff of Bhaskar 12.7, Plt Count 214, Immature Gran % (Auto) 0.4, Neut % (Auto) 54.9, Lymph % (Auto) 30.6, [place] % (Auto) 10.9 H, Eos % (Auto) 3.0, Baso % (Auto) 0.2, Neut # (Auto) 2.6, Lymph # (Auto) 1.4, [place] # (Auto) 0.5, Eos # (Auto) 0.1, Baso # (Auto) 0.0, Immature Gran # (Auto) 0.0 03/27/20 15:45: Troponin I < 0.012 ASSESSMENT: Please see below. 1. Uncontrolled hypertension 2. Left pleuritic type pain 3. Headache 4. COPD PLAN: 1. Clonidine 0.2mg BID 2. Minoxidil 5mg BID 3. Renal ultrasound and Doppler Plan and coordination of the patient's care discussed in the presence of Cemetery Warden and nurse. SCRIBED BY: Valentin VELEZ scribed while in presence of service performed by Dr. Schulte/Debbie Garcia APRN on 03/28/20 ([id number])
[2020-03-28] MEDS: ANORO ELLIPTA 62.5-25 MCG INH IH SCH (11:56)
[2020-03-28] MEDS ORDERED: TORADOL IVP STA (12:18)
[2020-03-28] MEDS: MUCINEX PO SCH ×2 (12:51→20:29)
[2020-03-28] MEDS: PROTONIX PO SCH (12:51)
[2020-03-28] MEDS: XANAX PO SCH ×2 (12:51→20:29)
[2020-03-28] MEDS: FLOMAX PO SCH (12:51)
[2020-03-28] MEDS: LEXAPRO PO SCH (12:52)
[2020-03-28] MEDS: MIRALAX PO SCH (12:52)
--- NOTE | 2020-03-28 15:11 | US ---
EXAM: Renal ultrasound HISTORY: Hypertension COMPARISON: None TECHNIQUE: Renal ultrasound was performed FINDINGS: Right kidney measures 4.9 x 4.1 x 10.8 cm. Left kidney measures 6.2 x 4.2 x 13.9 cm. Siddhartha ateral renal cortical thinning. No hydronephrosis or renal calculus large enough to cause acoustic s hadowing. Bladder only minimally distended and poorly evaluated. IMPRESSION: 1. No hydronephrosis. 2. Bilateral renal cortical thinning may relate to medical renal disease
[2020-03-28] MEDS: ASPIRIN EC PO SCH (20:28)
[2020-03-28] MEDS ORDERED: CATAPRES PO ONE (20:30)
[2020-03-28] MEDS: FLOVENT HFA 220 MCG IH SCH (20:35)
[2020-03-28] MEDS ORDERED: SYMBICORT 160-4.5 MCG INHALER IH SCH (21:00)
[2020-03-29] MEDS: VENTOLIN HFA (PER PUFF-WITH SPACER) IH SCH ×3 (04:50→19:25)
[2020-03-29 05:11] LABS: BASOPHILS % (AUTO) 0.1 % (0.0-3.0); IMMATURE GRANULOCYTE % (AUTO) 0.3 % (0.0-5.0); LYMPHOCYTES # (AUTO) 1.6 K/uL (0.60-3.4); LYMPHOCYTES % (AUTO) 17.7 (10.0-50.0); MEAN CORPUSCULAR HEMOGLOBIN 31.8 pg (27.0-31.0); MEAN CORPUSCULAR HGB CONC 34.9 (31.8-35.4); MEAN CORPUSCULAR VOLUME 91.1 fl (80.0-94.0); MONOCYTES # (AUTO) 0.7 K/uL (0.4-2.0); MONOCYTES % (AUTO) 8.4 (0-10); NEUTROPHILS # (AUTO) 6.5 K/ul (2.0-6.9); NEUTROPHILS % (AUTO) 73.5 % (42.2-75.2); PLATELET COUNT 217 10^3/uL (140-440); RDW COEFFICIENT OF VARIATION 12.6 % (11.6-14.8); RED BLOOD COUNT 4.72 10^6/ul (4.70-6.10); WHITE BLOOD COUNT 8.82 K/ul (4.2-10.2)
[2020-03-29 05:23] LABS: ALANINE AMINOTRANSFERASE 16.5 U/L (0-50); ALBUMIN 4.1 g/dL (3.5-5.0); ASPARTATE AMINO TRANSFERASE 19.6 U/L (17-59); BILIRUBIN,TOTAL 0.45 mg/dL (0.2-1.3); BLOOD UREA NITROGEN 28.2 mg/dL (9-20); CALCIUM 9.43 mg/dL (8.4-10.2); CARBON DIOXIDE 22.7 mmol/L (22-30.0); CHLORIDE 97.3 mmol/L (98-107); CREATININE 1.27 mg/dL (0.60-1.10); GLUCOSE 118.4 mg/dL (74-106); POTASSIUM 4.65 mmol/L (3.5-5.1); SODIUM 128.5 mmol/L (134.5-145); TOTAL PROTEIN 6.87 g/dL (6.3-8.2)
[2020-03-29] MEDS: PROTONIX PO SCH (05:34)
--- NOTE | 2020-03-29 08:19 | HP ---
DATE OF SERVICE: 03/27/20 REASON FOR HOSPITALIZATION/HISTORY OF PRESENT ILLNESS: This is an 79-year-old white male who presented to the emergency room complaining of left-sided pain, headache, elevated blood pressure. He was hospitalized several weeks ago with COPD exacerbation. He had been seen in the office. Blood pressure medications had been increased. He is still experiencing some increase at home. PAST MEDICAL HISTORY: Severe end-stage COPD, oxygen dependent Chronic respiratory failure Hypertension Hyponatremia Palpitations Right sciatica Chronic bronchitis Coronary artery disease Asymptomatic bradycardia Anxiety Secondary polycythemia Sleep apnea, uses CPAP BPH, sees Dr. Oconnor Hyperglycemia PAST SURGICAL HISTORY: Coronary artery disease with stent placement, 1999 Bilateral cataracts in 2014 REVIEW OF SYSTEMS: CONSTITUTIONAL: Fatigue. No night sweats. No malaise, lethargy. No fever or chills. HEENT: Eyes: No visual changes. No eye pain. No eye discharge. ENT: No runny nose. No epistaxis. No sinus pain. No sore throat. No odynophagia. No ear pain. No congestion. RESPIRATORY: Cough. No hemoptysis. No shortness of breath. CARDIOVASCULAR: No angina symptoms. No CHF symptoms. No atypical chest pain for CAD. No palpitations. No PND. No orthopnea. GASTROINTESTINAL: No abdominal pain. No nausea or vomiting. No diarrhea or constipation. No hematemesis. No hematochezia. GENITOURINARY: No urgency. No frequency. No dysuria. No hematuria. No obstructive symptoms. No discharge. No pain. No significant abnormal bleeding. MUSCULOSKELETAL: No musculoskeletal pain. No joint swelling. No arthritis. NEUROLOGICAL: Headache. No neck pain. No syncope. No seizures. No dizziness. PSYCHIATRIC: Not anxious. No depression. No suicidal thoughts. No homicidal thoughts. SKIN: No rash. No lesions. No wounds. ENDOCRINE: No unexplained weight loss. No weight gain. HEMATOLOGIC/LYMPHATIC: No anemia. No purpura. No petechiae. No prolonged or excessive bleeding. No palpable lymph nodes. PERSONAL/FAMILY/SOCIAL HISTORY: He no longer smokes, no alcohol or ilicit drug use. He lives by himself. MEDICATIONS: Aspirin 81 mg p.o. bedtime Escitalopram Oxalate 10 mg p.o. daily Tamsulosin 0.8 mg p.o. daily Stiolto Respimat 2.5-2.5 mcg/actuation mist two puff INH daily Albuterol Sulfate one vial NEB t.i.d. Clonidine 0.4 mg p.o. b.i.d. Amlodipine 5 mg p.o. b.i.d. Budesonide 0.5 mg/2mL suspension for nebulization 1 mg INH daily Polyethylene Glycol 3350 (Miralax) 17 gm p.o. daily Guaifenesin (Mucinex) 600 mg p.o. b.i.d. Alprazolam (Xanax) 0.5 mg p.o. b.i.d. Losartan (Cozaar) 100 mg p.o. daily Carvedilol 6.25 mg p.o. daily Non-Formulary 3 drops p.o. b.i.d. ALLERGIES: LEVOFLOXACIN PHYSICAL EXAMINATION: GENERAL: Alert and oriented. VITAL SIGNS: Temperature 97.2, heart rate 72, respirations 24, BP 188/120, pulse ox 97% on 3L. HEENT: Head normocephalic, atraumatic. Eyes: Extraocular muscles are intact. Pupils are equal, round and reactive to light and accommodation. Ears: No lesions. Nose appeared normal. Throat: No exudate or erythema. NECK: Supple. No JVD, no carotid bruit. No lymphadenopathy or thyromegaly. LUNGS: Diminished breath sounds. Clear to auscultation. Percussion note normal. Chest symmetrical. HEART: S1, S2, no S3. No murmur. No cyanosis or clubbing. No ascites. Pulses: Dorsalis pedis and posterior tibial pulses +1 to +2 bilaterally. ABDOMEN: Soft. Nontender. Bowel sounds active. No CVA tenderness. No mass felt. EXTREMITIES: No leg edema. Full range of motion of all extremities, equal. NEUROLOGIC: No focal deficit. Cranial nerves II through XII are grossly intact. No headache, no double vision or headache. SKIN: Not dry. Intact. Turgor - normal. LYMPHATIC: No palpable lymph nodes/no lymphedema. MUSCULOSKELETAL: Normal joints with no swelling. Muscle tone is normal. LABS/IMAGING: White count 4.6, hemoglobin 17, hematocrit 49.7, platelets 214. Sodium 133, potassium 4.5, BUN 15, creatinine 1.0, glucose 104, troponin less than 0.012. Total protein 7.9, AST 31, ALT 20. ABGs on 3L 02 sat 95, pH 7.35, pc02 50, p02 81, bicarb 27.6, total c02 29. Chest x-ray showed no acute changes just COPD. ASSESSMENT: 1. UNCONTROLLED HYPERTENSION 2. END-STAGE COPD 3. HEADACHE 4. HYPONATREMIA PLAN: 1. We will admit. 2. Routine telemetry orders. 3. CBC, CMP daily. 4. Cardiac enzymes are negative but will continue per telemetry orders. 5. Vasotec 1.25 IV q.6hr p.r.n for systolic greater than 160. 6. Continue home medications. 7. CBC, CMP daily. 8. UA with culture and sensitivity. 9. Regular diet. 10. Oxygen at 1 to 3L as needed. 11. Continue all home medications. 12. Will follow closely. TIME SPENT: More than 70 minutes. MTDD
--- NOTE | 2020-03-29 09:03 | PCM.PROG ---
Attending Provider: ATTENDING PROVIDER: Dr. HAILEY SCHULTE This patient is seen with Debbie Garcia, Nurse Practitioner. DATE OF SERVICE: 03/29/20 SUBJECTIVE: This 79 year old /WHITE M was hospitalized 03/27/20. The patient is resting comfortably. Blood pressure has significantly improved. We are going to back off Clonidine today. He reports that headache and left sided pain has significantly improved as well. REVIEW OF SYSTEMS: CONSTITUTIONAL: No night sweats. No fatigue, malaise, lethargy. No fever or chills. HEENT: Eyes: No visual changes. No eye pain. No eye discharge. ENT: No runny nose. No epistaxis. No sinus pain. No odynophagia. No congestion. RESPIRATORY: No cough, no congestion. No hemoptysis. Shortness of breath as usual. CARDIOVASCULAR: No angina symptoms. No CHF symptoms. No atypical chest pain for CAD. No palpitations. No orthopnea.. GASTROINTESTINAL: No abdominal pain. No nausea or vomiting. No diarrhea or constipation. No hematemesis. No hematochezia. GENITOURINARY: No urgency. No frequency. No dysuria. No hematuria. No obstructive symptoms. No discharge. No pain. No significant abnormal bleeding. MUSCULOSKELETAL: No musculoskeletal pain; no joint swelling. NEUROLOGICAL: Awake, alert, oriented to time, place and person. No headache. No neck pain. No syncope. No seizures. No dizziness. PSYCHIATRIC: Not anxious. No depression. No suicidal thoughts. No homicidal thoughts. SKIN: No rash. No lesions. No wounds. ENDOCRINE: No unexplained weight loss. No weight gain. HEMATOLOGIC/LYMPHATIC: No anemia. No purpura. No petechiae. No prolonged or excessive bleeding. No palpable lymph nodes. PHYSICAL EXAMINATION: GENERAL: The patient is awake, alert and oriented, sitting in bed in no distress. VITAL SIGNS: Temperature 97.5 F, Pulse 47, Respiratory Rate 18, BP 122/65, Pulse Ox 97% HEENT: Head normocephalic, atraumatic. Eyes: Extraocular muscles are intact. Pupils are equal, round and reactive to light and accommodation. Ears: No lesions. Nose appeared normal. Throat: No exudate or erythema. NECK: Supple. No JVD, no carotid bruit. No lymphadenopathy or thyromegaly. LUNGS: Diminished breath sounds. Clear to auscultation. Percussion note normal. Chest symmetrical. HEART: S1, S2, no S3. No murmurs. No cyanosis or clubbing. No ascites. Pulses: Dorsalis pedis and posterior tibial pulses +1 to +2 both sides. ABDOMEN: Soft. Non-tender. Bowel sounds active. No CVA tenderness. No mass felt. EXTREMITIES: No edema. Full range of motion of all extremities, equal. NEUROLOGIC: No focal deficit. Cranial nerves II through XII are grossly intact. No headache, no double vision or headache. SKIN: Not dry. Intact. Turgor-normal. LYMPHATIC: No palpable lymph nodes/no lymphedema. MUSCULOSKELETAL: Normal joints with no swelling. Muscle tone is normal. LAB REVIEW: 03/29/20 04:46 03/29/20 04:46 03/29/20 04:46: Sodium 128.5 L, Potassium 4.65, Chloride 97.3 L, Carbon Dioxide 22.7, Anion Gap 13.15, BUN 28.2 H, Creatinine 1.27 H, Estimated GFR (MDRD) 55.00, BUN/Creatinine Ratio 22.20, Glucose 118.4 H D, Calcium 9.43, Total Bilirubin 0.45, AST 19.6, ALT 16.5, Alkaline Phosphatase 59.0, Total Protein 6.87, Albumin 4.10, Globulin 2.77, Albumin/Globulin Ratio 1.48 03/29/20 04:46: WBC 8.82, RBC 4.72, Hgb 15.0, Hct 43.0, MCV 91.1, MCH 31.8 H, MCHC 34.9, RDW Coeff of Bhaskar 12.6, Plt Count 217, Immature Gran % (Auto) 0.3, Leonor t % (Auto) 73.5, Lymph % (Auto) 17.7, [place] % (Auto) 8.4, Eos % (Auto) 0.0, Baso % (Auto) 0.1, Neut # (Auto) 6.5, Lymph # (Auto) 1.6, [place] # (Auto) 0.7, Eos # (Auto) 0.0, Baso # (Auto) 0.0, Immature Gran # (Auto) 0.0 ASSESSMENT: Please see below. 1. Hypertension 2. Left pleuritic pain 3. Severe COPD 4. Anxiety 5. Hyponatremia PLAN: 1. 6mg IM Decadron today 2. Normal saline at 50cc an hour 3. Reduced Clonidine to 0.1mg BID 4. Continue with other blood pressure medications. Plan and coordination of the patient's care discussed in the presence of Deputy Chief Magistrate and nurse. SCRIBED BY: Merced VELEZist scribed while in presence of service performed by Dr. Schulte/Debbie Garcia APRN on 03/29/20 ([id number])
--- NOTE | 2020-03-29 09:10 | PN ---
DATE OF SERVICE: 03/27/20 SUBJECTIVE: The patient was seen and was hospitalized as he came to the emergency room with headache and severe hypertension. Blood pressure was 180/120. In the emergency room, the patient was given Nitroglycerin. The blood pressure came down eventually. He was hospitalized. His cardiac profile was negative. EKG according to the ER physician was unchanged. No acute changes. Electrolytes and blood gases were acceptable. The patient's assessment was hypertension and was a lot better once blood pressure came down. Will put the patient in the hospital with routine telemetry orders to rule out any acute myocardial event. Vasotec to be given 1.25 mg q.6hr for blood pressure over 150. Give Clonidine 0.4 mg b.i.d. with other medications that he is on. The patient is DNR. TIME SPENT: More than 30 minutes. Plan and coordination of the patient's care discussed in the presence of nurse. NITIN
[2020-03-29] MEDS: FLOMAX PO SCH (09:13)
[2020-03-29] MEDS: MIRALAX PO SCH (09:13)
[2020-03-29] MEDS: MINOXIDIL PO SCH ×2 (09:14→20:04)
[2020-03-29] MEDS: COREG PO SCH (09:14)
[2020-03-29] MEDS: CATAPRES PO SCH ×2 (09:14→20:01)
[2020-03-29] MEDS: MUCINEX PO SCH ×2 (09:14→20:01)
[2020-03-29] MEDS: NORVASC PO SCH ×2 (09:14→20:01)
[2020-03-29] MEDS: XANAX PO SCH ×2 (09:14→20:01)
[2020-03-29] MEDS: COZAAR PO SCH (09:14)
[2020-03-29] MEDS: LEXAPRO PO SCH (09:14)
[2020-03-29] MEDS: FLOVENT HFA 220 MCG IH SCH ×2 (09:15→20:04)
[2020-03-29] MEDS: DECADRON IM SCH (09:15)
[2020-03-29] MEDS: ANORO ELLIPTA 62.5-25 MCG INH IH SCH (09:15)
[2020-03-29] MEDS: SODIUM CHLORIDE 1,000 ML IV SCH (09:23)
--- NOTE | 2020-03-29 09:23 | US ---
EXAM: Renal artery Doppler ultrasound. HISTORY: Hypertension COMPARISON: None TECHNIQUE: Renal artery Doppler ultrasound was performed. Duplex imaging was performed with color, dunham-scale and Doppler imaging. FINDINGS: The aorta is obscured secondary to bowel gas shadowing The right kidney measures 10.5 cm in length. No hydronephrosis. Peak systolic velocities in the dudley n renal artery at the ostium, midportion, and renal hilum are not visualized, 0.3, and 0.4 cm/sec res pectively. These values are normal at the visualized levels. Doppler wave forms are normal. The ar grace artery resistive index measures 0.75. This value is normal. Right renal vein is patent. The left kidney measures 11.9 cm in length. No hydronephrosis. Peak systolic velocities in the main renal artery at the ostium, midportion, and renal hilum are not visualized , 0.6 , and 0.5 cm/sec re spectively. These values are normal at the visualized levels. Doppler wave forms are normal. The a rcuate artery resistive index measures 0.68. This value is normal. Left renal vein is patent. IMPRESSION: Ostial/proximal bilateral renal arteries are obscured. Renal artery stenosis cannot be excluded. Ve locities at the visualized levels appear normal. Finding can be correlate with CT angiography abdome n.
[2020-03-29] MEDS ORDERED: LASIX IVP STA (09:40)
--- NOTE | 2020-03-29 13:06 | PN ---
DATE OF SERVICE: 03/28/20 SUBJECTIVE: The patient was seen and examined with the nurse practitioner. The patient's condition is stabilizing. His systolic blood pressure is 160. The patient is now on Minoxidil. The patient is going to undergo flow studies to rule out renal artery stenosis. His prognosis is guarded considering the patient's severe end- stage chronic lung disease as well as having history of coronary artery disease, severe hypertension, and chronic kidney disease. The patient is on home oxygen. His COPD is now steroid dependent. TIME SPENT: More than 30 minutes. Plan and coordination of the patient's care discussed in the presence of nurse. NITIN
--- NOTE | 2020-03-29 14:17 | CT ---
EXAM: CT angiogram abdomen. HISTORY: Hypertension. COMPARISON: Renal Doppler 1 day prior. TECHNIQUE: Multiple axial images of the abdomen were obtained prior to and following intravenous adm inistration of 100 mL of Visipaque 320, low osmolar. Images reformatted in the sagittal and coronal planes. Three-dimensional reconstructed images were created on an independent workstation. FINDINGS: NONVASCULAR: Emphysema and band-like areas of scarring or atelectasis noted in the lung bases. Degenerative changes seen throughout the spine. Gallbladder absent. The liver, pancreas, spleen, adrenal glands are unremarkable save for calcified granulomatous changes in the liver and spleen. Duplicated left renal collecting system suggested. Renal cortical thinning present bilaterally. The re is no hydronephrosis. No bowel obstruction. Appendix is normal. Diverticulosis noted. Bladder normal. Prostate mildly enlarged with coarse calcifications. Phleboliths in the pelvis. No free fluid, free air or lymphadenopathy detected. 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 Mild, less than 50% superior mesente anna artery origin stenosis. No visualized 50% or greater stenosis in the right or left renal artery. Early branching of the left renal artery just beyond the origin noted. The inferior mesenteric artery is patent. Calcified plaquing present throughout the abdominal aorta without aneurysm or dissection. Calcified plaquing present in the common iliac arteries without hemodynamically significant stenosis. No significant external iliac artery stenosis bilaterally. IMPRESSION: No hemodynamically significant renal artery stenosis. All CT scans are performed using dose optimization techniques as appropriate to the performed exam an d include at least one of the following: Automated exposure control, adjustment of the mA and/or kV according t o size, and the use of iterative reconstruction technique.
[2020-03-29] MEDS ORDERED: MORPHINE 2 MG/ML SYRINGE IVP PRN (18:10)
[2020-03-29] MEDS: TORADOL IVP PRN (18:51)
[2020-03-29] MEDS: ASPIRIN EC PO SCH (20:00)
[2020-03-30] MEDS: SODIUM CHLORIDE 1,000 ML IV SCH ×2 (00:19→19:43)
[2020-03-30] MEDS: VENTOLIN HFA (PER PUFF-WITH SPACER) IH SCH ×3 (04:50→19:20)
[2020-03-30 05:09] LABS: HEMOGLOBIN 14.3 g/dl (14.0-18.0); IMMATURE GRANULOCYTE % (AUTO) 0.4 % (0.0-5.0); LYMPHOCYTES # (AUTO) 1.7 K/uL (0.60-3.4); LYMPHOCYTES % (AUTO) 20.9 (10.0-50.0); MEAN CORPUSCULAR HEMOGLOBIN 32.4 pg (27.0-31.0); MEAN CORPUSCULAR HGB CONC 35.8 (31.8-35.4); MEAN CORPUSCULAR VOLUME 90.5 fl (80.0-94.0); MONOCYTES # (AUTO) 0.7 K/uL (0.4-2.0); MONOCYTES % (AUTO) 9.3 (0-10); NEUTROPHILS # (AUTO) 5.5 K/ul (2.0-6.9); NEUTROPHILS % (AUTO) 69.4 % (42.2-75.2); PLATELET COUNT 212 10^3/uL (140-440); RDW COEFFICIENT OF VARIATION 12.7 % (11.6-14.8); RED BLOOD COUNT 4.42 10^6/ul (4.70-6.10); WHITE BLOOD COUNT 7.96 K/ul (4.2-10.2)
[2020-03-30 05:25] LABS: ALANINE AMINOTRANSFERASE 13.7 U/L (0-50); ALBUMIN 3.59 g/dL (3.5-5.0); ALKALINE PHOSPHATASE 54.1 U/L (56-119); ASPARTATE AMINO TRANSFERASE 17.4 U/L (17-59); BILIRUBIN,TOTAL 0.49 mg/dL (0.2-1.3); BLOOD UREA NITROGEN 35.9 mg/dL (9-20); CALCIUM 8.85 mg/dL (8.4-10.2); CARBON DIOXIDE 24.6 mmol/L (22-30.0); CHLORIDE 98.1 mmol/L (98-107); CREATININE 1.4 mg/dL (0.60-1.10); GLUCOSE 101.7 mg/dL (74-106); POTASSIUM 4.41 mmol/L (3.5-5.1); SODIUM 128.8 mmol/L (134.5-145); TOTAL PROTEIN 6.22 g/dL (6.3-8.2)
[2020-03-30] MEDS: PROTONIX PO SCH (05:48)
[2020-03-30] MEDS: MIRALAX PO SCH (08:23)
[2020-03-30] MEDS: NORVASC PO SCH ×2 (08:24→20:22)
[2020-03-30] MEDS: CATAPRES PO SCH ×2 (08:24→20:22)
[2020-03-30] MEDS: COREG PO SCH (08:24)
[2020-03-30] MEDS: FLOMAX PO SCH (08:24)
[2020-03-30] MEDS: MUCINEX PO SCH ×2 (08:25→20:22)
[2020-03-30] MEDS: LEXAPRO PO SCH (08:25)
[2020-03-30] MEDS: COZAAR PO SCH (08:25)
[2020-03-30] MEDS: XANAX PO SCH ×2 (08:25→20:22)
[2020-03-30] MEDS: MINOXIDIL PO SCH ×2 (08:25→20:22)
[2020-03-30] MEDS: FLOVENT HFA 220 MCG IH SCH ×2 (08:26→20:23)
[2020-03-30] MEDS: ANORO ELLIPTA 62.5-25 MCG INH IH SCH (08:26)
--- NOTE | 2020-03-30 12:49 | PN ---
DATE OF SERVICE: 03/29/20 SUBJECTIVE: The patient was seen and examined with the nurse practitioner. The patient's blood pressure more or less fairly well controlled, still systolic on a higher side. He was unable to have ultrasound and flow study done properly because of a lot of gas, et cetera so he is going to have a CT angiogram of renal arteries. The patient is being given IV Lasix for fluid retention and feeling better. The patient had mild headache and numbness of the face. He is being given Toradol 15 mg IV with 2 mg Morphine Sulfate. He is very anxious and that seems to be his problem. Minoxidil is working well. We are going to try and get him off Clonidine. CONDITION: Stable. TIME SPENT: More than 30 minutes. Plan and coordination of the patient's care discussed in the presence of nurse. NITIN
[2020-03-30] MEDS: TORADOL IVP PRN (18:25)
[2020-03-30] MEDS: ASPIRIN EC PO SCH (20:21)
[2020-03-31] MEDS: VENTOLIN HFA (PER PUFF-WITH SPACER) IH SCH ×3 (04:55→19:55)
[2020-03-31 05:08] LABS: BASOPHILS % (AUTO) 0.1 % (0.0-3.0); EOSINOPHILS % (AUTO) 0.1 % (0.0-7.0); HEMATOCRIT 43.4 % (42.0-52.0); HEMOGLOBIN 14.9 g/dl (14.0-18.0); IMMATURE GRANULOCYTE % (AUTO) 0.4 % (0.0-5.0); LYMPHOCYTES # (AUTO) 2.3 K/uL (0.60-3.4); LYMPHOCYTES % (AUTO) 33.8 (10.0-50.0); MEAN CORPUSCULAR HEMOGLOBIN 31.6 pg (27.0-31.0); MEAN CORPUSCULAR HGB CONC 34.3 (31.8-35.4); MEAN CORPUSCULAR VOLUME 92.1 fl (80.0-94.0); MONOCYTES # (AUTO) 0.9 K/uL (0.4-2.0); MONOCYTES % (AUTO) 13.7 (0-10); NEUTROPHILS # (AUTO) 3.5 K/ul (2.0-6.9); NEUTROPHILS % (AUTO) 51.9 % (42.2-75.2); PLATELET COUNT 218 10^3/uL (140-440); RDW COEFFICIENT OF VARIATION 12.9 % (11.6-14.8); RED BLOOD COUNT 4.71 10^6/ul (4.70-6.10); WHITE BLOOD COUNT 6.71 K/ul (4.2-10.2)
[2020-03-31 05:13] LABS: ALANINE AMINOTRANSFERASE 14.3 U/L (0-50); ALBUMIN 3.51 g/dL (3.5-5.0); ALKALINE PHOSPHATASE 53.6 U/L (56-119); ASPARTATE AMINO TRANSFERASE 16.7 U/L (17-59); BILIRUBIN,TOTAL 0.44 mg/dL (0.2-1.3); CALCIUM 8.59 mg/dL (8.4-10.2); CARBON DIOXIDE 22.6 mmol/L (22-30.0); CHLORIDE 102.5 mmol/L (98-107); CREATININE 1.27 mg/dL (0.60-1.10); GLUCOSE 87.4 mg/dL (74-106); POTASSIUM 4.21 mmol/L (3.5-5.1); SODIUM 132.7 mmol/L (134.5-145); TOTAL PROTEIN 6.06 g/dL (6.3-8.2)
[2020-03-31] MEDS: PROTONIX PO SCH (05:33)
--- NOTE | 2020-03-31 08:48 | PCM.PROG ---
Attending Provider: ATTENDING PROVIDER: Dr. HAILEY SCHULTE This patient is seen with Debbie Garcia, Nurse Practitioner. DATE OF SERVICE: 03/31/20 SUBJECTIVE: This 79 year old /WHITE M was hospitalized 03/27/20. The patient is resting comfortably. He is still complaining of headache. Denies any dizziness. Breathing is stable. Blood pressure has been improved. REVIEW OF SYSTEMS: CONSTITUTIONAL: No night sweats. No fatigue, malaise, lethargy. No fever or chills. HEENT: Eyes: No visual changes. No eye pain. No eye discharge. ENT: No runny nose. No epistaxis. No sinus pain. No odynophagia. No congestion. RESPIRATORY: No cough, no congestion. No hemoptysis. Shortness of breath with exertion. CARDIOVASCULAR: No angina symptoms. No CHF symptoms. No atypical chest pain for CAD. No palpitations. No orthopnea.. GASTROINTESTINAL: No abdominal pain. No nausea or vomiting. No diarrhea or constipation. No hematemesis. No hematochezia. GENITOURINARY: No urgency. No frequency. No dysuria. No hematuria. No obstructive symptoms. No discharge. No pain. No significant abnormal bleeding. MUSCULOSKELETAL: No musculoskeletal pain; no joint swelling. NEUROLOGICAL: Awake, alert, oriented to time, place and person. No headache. No neck pain. No syncope. No seizures. No dizziness. PSYCHIATRIC: Not anxious. No depression. No suicidal thoughts. No homicidal thoughts. SKIN: No rash. No lesions. No wounds. ENDOCRINE: No unexplained weight loss. No weight gain. HEMATOLOGIC/LYMPHATIC: No anemia. No purpura. No petechiae. No prolonged or excessive bleeding. No palpable lymph nodes. PHYSICAL EXAMINATION: GENERAL: The patient is awake, alert and oriented, sitting in bed in no distress. VITAL SIGNS: Temperature 97.8 F, Pulse 63, Respiratory Rate 16, BP 146/72, Pulse Ox 98% HEENT: Head normocephalic, atraumatic. Eyes: Extraocular muscles are intact. Pupils are equal, round and reactive to light and accommodation. Ears: No lesions. Nose appeared normal. Throat: No exudate or erythema. NECK: Supple. No JVD, no carotid bruit. No lymphadenopathy or thyromegaly. LUNGS: Diminished breath sounds. Clear to auscultation. Percussion note normal. Chest symmetrical. HEART: S1, S2, no S3. No murmurs. No cyanosis or clubbing. No ascites. Pulses: Dorsalis pedis and posterior tibial pulses +1 to +2 both sides. ABDOMEN: Soft. Non-tender. Bowel sounds active. No CVA tenderness. No mass felt. EXTREMITIES: No edema. Full range of motion of all extremities, equal. NEUROLOGIC: No focal deficit. Cranial nerves II through XII are grossly intact. No headache, no double vision or headache. SKIN: Not dry. Intact. Turgor-normal. LYMPHATIC: No palpable lymph nodes/no lymphedema. MUSCULOSKELETAL: Normal joints with no swelling. Muscle tone is normal. LAB REVIEW: 03/31/20 04:38 03/31/20 04:38 03/31/20 04:38: Sodium 132.7 L, Potassium 4.21, Chloride 102.5, Carbon Dioxide 22.6, Anion Gap 11.81, BUN 34.0 H, Creatinine 1.27 H, Estimated GFR (MDRD) 55.00, BUN/Creatinine Ratio 26.77, Glucose 87.4, Calcium 8.59, Total Bilirubin 0.44, AST 16.7 L, ALT 14.3, Alkaline Phosphatase 53.6 L, Total Protein 6.06 L, Albumin 3.51, Globulin 2.55, Albumin/Globulin Ratio 1.37 03/31/20 04:38: WBC 6.71, RBC 4.71, Hgb 14.9, Hct 43.4, MCV 92.1, MCH 31.6 H, MCHC 34.3, RDW Coeff of Bhaskar 12.9, Plt Count 218, Immature Gran % (Auto) 0.4, Neut % (Auto) 51.9, Lymph % (Auto) 33.8, [place] % (Auto) 13.7 H, Eos % (Auto) 0.1, Baso % (Auto) 0.1, Neut # (Auto) 3.5, Lymph # (Auto) 2.3, [place] # (Auto) 0.9, Eos # (Auto) 0.0, Baso # (Auto) 0.0, Immature Gran # (Auto) 0.0 ASSESSMENT: Please see below. 1. Hypertension 2. Headache 3. Severe COPD 4. Anxiety 5. Hyponatremia, improved PLAN: 1. Continue fluid restriction 2. CT of head with and without 3. Lasix 20mg daily PO 4. Discontinue IV fluids 5. Decrease Clonidine 0.1mg daily Plan and coordination of the patient's care discussed in the presence of Director Of Compensation and nurse. SCRIBED BY: Valentin VELEZ scribed while in presence of service performed by Dr. Schulte/Debbie Garcia APRN on 03/31/20 ([id number])
[2020-03-31] MEDS: SODIUM CHLORIDE 1,000 ML IV SCH (09:22)
[2020-03-31] MEDS: MIRALAX PO SCH (10:01)
[2020-03-31] MEDS: FLOVENT HFA 220 MCG IH SCH ×2 (10:02→20:09)
[2020-03-31] MEDS: ANORO ELLIPTA 62.5-25 MCG INH IH SCH (10:02)
[2020-03-31] MEDS: LEXAPRO PO SCH (10:03)
[2020-03-31] MEDS: FLOMAX PO SCH (10:03)
[2020-03-31] MEDS: COZAAR PO SCH (10:04)
[2020-03-31] MEDS: LASIX TAB PO SCH (10:04)
[2020-03-31] MEDS: NORVASC PO SCH ×2 (10:04→20:08)
[2020-03-31] MEDS: CATAPRES PO SCH (10:04)
[2020-03-31] MEDS: MUCINEX PO SCH ×2 (10:04→20:08)
[2020-03-31] MEDS: MINOXIDIL PO SCH ×2 (10:04→20:08)
[2020-03-31] MEDS: COREG PO SCH (10:04)
[2020-03-31] MEDS: XANAX PO SCH ×2 (10:04→20:08)
--- NOTE | 2020-03-31 11:46 | PN ---
DATE OF SERVICE: 03/30/20 SUBJECTIVE: 79 year old white male hospitalized with chest pain, headache and severe hypertension. The patient's condition has improved. He is face is less swollen. REVIEW OF SYSTEMS: CONSTITUTIONAL: No night sweats. No fatigue, malaise, lethargy. No fever or chills. HEENT: Eyes: No visual changes. No eye pain. No eye discharge. ENT: No runny nose. No epistaxis. No sinus pain. No sore throat. No odynophagia. No congestion. RESPIRATORY: No cough, no congestion. No hemoptysis. Shortness of breath but less than before. CARDIOVASCULAR: No angina symptoms. No CHF symptoms. No atypical chest pain for CAD. No palpitations. No PND. No orthopnea. GASTROINTESTINAL: No abdominal pain. No nausea or vomiting. No diarrhea or constipation. No hematemesis. No hematochezia. Appetite seems to be improving. GENITOURINARY: No urgency. No frequency. No dysuria. No hematuria. No obstructive symptoms. No discharge. No pain. No significant abnormal bleeding. MUSCULOSKELETAL: No musculoskeletal pain; no joint swelling. NEUROLOGICAL: Headache is much less than before. No neck pain. No syncope. No seizures. No dizziness. PSYCHIATRIC: Not anxious. No depression. No suicidal thoughts. No homicidal thoughts. SKIN: No rash. No lesions. No wounds. ENDOCRINE: No unexplained weight loss. No weight gain. HEMATOLOGIC/LYMPHATIC: No anemia. No purpura. No petechiae. No prolonged or excessive bleeding. No palpable lymph nodes. PHYSICAL EXAMINATION: VITAL SIGNS: Temperature 97.9, pulse 55, respiratory rate 18, blood pressure 143/78. HEENT: Head normocephalic, atraumatic. Eyes: Extraocular muscles are intact. Pupils are equal, round and reactive to light and accommodation. Ears: No lesions. Nose appeared normal. Throat: No exudate or erythema. NECK: Supple. No JVD, no carotid bruit. No lymphadenopathy or thyromegaly. LUNGS: Decreased breath sounds but clear to auscultation. Percussion note normal. Chest symmetrical. HEART: S1, S2, no S3. No murmurs. No cyanosis or clubbing. No ascites. Pulses: Dorsalis pedis and posterior tibial pulses +1 to +2 bilaterally. ABDOMEN: Soft. Nontender. Bowel sounds active. No CVA tenderness. No mass felt. EXTREMITIES: Trace edema noted. Full range of motion of all extremities, equal. NEUROLOGIC: No focal deficit. Cranial nerves II through XII are grossly intact. No headache, no double vision or headache. SKIN: Not dry. Intact. Turgor - normal. LYMPHATIC: No palpable lymph nodes/no lymphedema. MUSCULOSKELETAL: Normal joints with no swelling. Muscle tone is normal. LABS: Hgb 14.3, hct 40, WBC 7,900 normal differential, creatinine 1.4, BUN 35, potassium 4.4 ASSESSMENT: 1. Hypertension seems to be getting under control 2. Generalized edema seems to be resolving 3. Chest pain, under control. The patient had right sided chest pain more like a pleurisy type PLAN: 1. Continue Minoxidil 2. Keep Clonidine 0.1mg twice a day acceptable dose 3. He had a CT angiogram on the kidneys which did not show any significantly occlusive renal disease. The patient has chronic kidney disease with thinning of the cortices 4. The patient was drinking too water and was causing hyponatremia. The patient is advised to drink just enough water to get by. Normal saline is being infused at rate 50cc per hour. 5. The patient's fluid retention seems to be because of increase salt intake and also because of steroids. CONDITION: Improving. Stable TIME SPENT: More than 30 minutes. Plan and coordination of the patient's care discussed in the presence of nurse. NITIN
--- NOTE | 2020-03-31 11:53 | CT ---
EXAM: CT head with and without contrast HISTORY: Headache COMPARISON: None TECHNIQUE: CT head performed with and without intravenous contrast. FINDINGS: There is no mass effect, midline shift, or intracranial hemmorhage. Blandon white differenti ation is preserved. There is no extra-axial collection. The ventricles, sulci, and basal cisterns a re patent and symmetric. There is chronic ischemic disease of the white matter and cerebral volume l oss. There is no depressed calvarial fracture. The mastoid air cells are clear. Polypoid mucosal th ickening left maxillary sinus measuring 1.6 cm, likely mucous retention cyst. There are intracranial atherosclerotic calcifications. Mild prominence of the basilar tip measuring 4.5 mm. IMPRESSION: 1. No acute intracranial abnormality. 2. Unexpected finding: Mild prominence of the basilar tip measuring 4.5 mm. Recommend correlation with CT angiography head to exclude aneurysm. 3. Chronic ischemic disease of the white matter and cerebral volume loss. All CT scans are performed using dose optimization techniques as appropriate to the performed exam an d include at least one of the following: Automated exposure control, adjustment of the mA and/or kV according t o size, and the use of iterative reconstruction technique.
--- NOTE | 2020-03-31 12:53 | PN ---
DATE OF SERVICE: 03/31/20 SUBJECTIVE: The patient was seen and examined with the Nurse Practitioner. The patient's blood pressure is stable. The swelling of the face and generalized mild swelling is doing a lot better. He is going to be on Lasix and Potassium supplements. CONDITION: Stable Advised to cut down on salt. Some of the patient's edema is from eating a lot of salt and not taking his medication regularly and of course he is on steroids. The patient is explained about all that. TIME SPENT: More than 30 minutes. Plan and coordination of the patient's care discussed in the presence of nurse. NITIN
[2020-03-31] MEDS: ASPIRIN EC PO SCH (20:08)
[2020-04-01] MEDS: VENTOLIN HFA (PER PUFF-WITH SPACER) IH SCH (04:45)
[2020-04-01 05:29] LABS: BASOPHILS % (AUTO) 0.3 % (0.0-3.0); EOSINOPHILS % (AUTO) 0.4 % (0.0-7.0); HEMATOCRIT 47.9 % (42.0-52.0); HEMOGLOBIN 16.2 g/dl (14.0-18.0); IMMATURE GRANULOCYTE # (AUTO) 0.1 (0.0-1.0); IMMATURE GRANULOCYTE % (AUTO) 0.7 % (0.0-5.0); LYMPHOCYTES # (AUTO) 1.9 K/uL (0.60-3.4); LYMPHOCYTES % (AUTO) 24.5 (10.0-50.0); MEAN CORPUSCULAR HEMOGLOBIN 31.6 pg (27.0-31.0); MEAN CORPUSCULAR HGB CONC 33.8 (31.8-35.4); MEAN CORPUSCULAR VOLUME 93.4 fl (80.0-94.0); MONOCYTES # (AUTO) 1.2 K/uL (0.4-2.0); MONOCYTES % (AUTO) 15.4 (0-10); NEUTROPHILS # (AUTO) 4.5 K/ul (2.0-6.9); NEUTROPHILS % (AUTO) 58.7 % (42.2-75.2); PLATELET COUNT 245 10^3/uL (140-440); RDW COEFFICIENT OF VARIATION 13.1 % (11.6-14.8); RED BLOOD COUNT 5.13 10^6/ul (4.70-6.10)
[2020-04-01 05:46] LABS: ALANINE AMINOTRANSFERASE 15.6 U/L (0-50); ALBUMIN 4.18 g/dL (3.5-5.0); ALKALINE PHOSPHATASE 62.4 U/L (56-119); ASPARTATE AMINO TRANSFERASE 21.6 U/L (17-59); BILIRUBIN,TOTAL 0.62 mg/dL (0.2-1.3); CALCIUM 9.25 mg/dL (8.4-10.2); CARBON DIOXIDE 30.1 mmol/L (22-30.0); CHLORIDE 99.6 mmol/L (98-107); CREATININE 1.23 mg/dL (0.60-1.10); GLUCOSE 98.1 mg/dL (74-106); POTASSIUM 4.41 mmol/L (3.5-5.1); SODIUM 135.6 mmol/L (134.5-145); TOTAL PROTEIN 6.91 g/dL (6.3-8.2)
[2020-04-01 06:11] VITALS: BP 160/76; TEMP 98.4
--- NOTE | 2020-04-01 09:07 | PCM.PROG ---
Attending Provider: ATTENDING PROVIDER: Dr. HAILEY SCHULTE DATE OF SERVICE: 04/01/20 SUBJECTIVE: This 79 year old /WHITE M was hospitalized 03/27/20 with pleuritic type chest pain with shortness of breath, cough and congestion. The patient has has severe hypertension. The patient's hypertension is more or less controlled with multiple medications. Short of breath is better. Chest pain is still persistent but mild off and on. It has characteristics of pleuritic pain. REVIEW OF SYSTEMS: CONSTITUTIONAL: No night sweats. No fatigue, malaise, lethargy. No fever or chills. HEENT: Eyes: No visual changes. No eye pain. No eye discharge. ENT: No runny nose. No epistaxis. No sinus pain. No odynophagia. No congestion. RESPIRATORY: No cough, no congestion. No hemoptysis. No shortness of breath. CARDIOVASCULAR: No angina symptoms. No CHF symptoms. No atypical chest pain for CAD. No palpitations. No orthopnea.. GASTROINTESTINAL: No abdominal pain. No nausea or vomiting. No diarrhea or constipation. No hematemesis. No hematochezia. Appetite. GENITOURINARY: No urgency. No frequency. No dysuria. No hematuria. No obstructive symptoms. No discharge. No pain. No significant abnormal bleeding. MUSCULOSKELETAL: No musculoskeletal pain; no joint swelling. NEUROLOGICAL: Awake, alert, oriented to time, place and person. No headache. No neck pain. No syncope. No seizures. No dizziness. PSYCHIATRIC: Not anxious. No depression. No suicidal thoughts. No homicidal thoughts. SKIN: No rash. No lesions. No wounds. ENDOCRINE: No unexplained weight loss. No weight gain. HEMATOLOGIC/LYMPHATIC: No anemia. No purpura. No petechiae. No prolonged or excessive bleeding. No palpable lymph nodes. PHYSICAL EXAMINATION: GENERAL: The patient is awake, alert and oriented, sitting in bed in no distress. VITAL SIGNS: Temperature 98.4 F, Pulse 80, Respiratory Rate 18, BP 160/76, Pulse Ox 98% HEENT: Head normocephalic, atraumatic. Eyes: Extraocular muscles are intact. Pupils are equal, round and reactive to light and accommodation. Ears: No lesions. Nose appeared normal. Throat: No exudate or erythema. NECK: Supple. No JVD, no carotid bruit. No lymphadenopathy or thyromegaly. LUNGS: Decreased breath sounds. Clear to auscultation. Percussion note normal. Chest symmetrical. HEART: S1, S2, no S3. No murmurs. No cyanosis or clubbing. No ascites. Pulses: Dorsalis pedis and posterior tibial pulses +1 to +2 both sides. ABDOMEN: Soft. Non-tender. Bowel sounds active. No CVA tenderness. No mass felt. EXTREMITIES: Trace edema. Swelling of face has resolved. Full range of motion of all extremities, equal. Oral fluid retention which was mild resolved with addition of Lasix and Potassium. NEUROLOGIC: No focal deficit. Cranial nerves II through XII are grossly intact. No headache, no double vision or headache. SKIN: Warm and dry. Intact. Turgor-normal. LYMPHATIC: No palpable lymph nodes/no lymphedema. MUSCULOSKELETAL: Normal joints with no swelling. Muscle tone is normal. LAB REVIEW: 04/01/20 04:50 04/01/20 04:50 04/01/20 04:50: Sodium 135.6, Potassium 4.41, Chloride 99.6, Carbon Dioxide 30.1 H D, Anion Gap 10.31, BUN 25.0 H, Creatinine 1.23 H, Estimated GFR (MDRD) 57.00, BUN/Creatinine Ratio 20.32, Glucose 98.1, Calcium 9.25, Total Bilirubin 0.62, AST 21.6, ALT 15.6, Alkaline Phosphatase 62.4, Total Protein 6.91, Albumin 4.18, Globulin 2.73, Albumin/Globulin Ratio 1.53 04/01/20 04:50: WBC 7.60, RBC 5.13, Hgb 16.2, Hct 47.9, MCV 93.4, MCH 31.6 H, MCHC 33.8, RDW Coeff of Bhaskar 13.1, Plt Count 245, Immature Gran % (Auto) 0.7, Neut % (Auto) 58.7, Lymph % (Auto) 24.5, [place] % (Auto) 15.4 H, Eos % (Auto) 0.4, Baso % (Auto) 0.3, Neut # (Auto) 4.5, Lymph # (Auto) 1.9, [place] # (Auto) 1.2, Eos # (Auto) 0.0, Baso # (Auto) 0.0, Immature Gran # (Auto) 0.1 03/31/20 14:10: Adenovirus (PCR) Not detected, B. pertussis DNA (PCR) Not detect ed, B.parapertussis DNA PCR Not detected, C. pneumoniae DNA (PCR) Not detected, Coronavirus OC43 (PCR) Not detected, Coronavirus HKU1 (PCR) Not detected, Coronavirus 229E (PCR) Not detected, Coronavirus NL63 (PCR) Not detected, Human Metapneumovir PCR Not detected, Influenza B (RT-PCR) Not detected, M. pneumoniae (PCR) Not detected, Parainfluenza 1 (PCR) Not detected, Parainfluenza 2 (PCR) Not detected, Parainfluenza 3 (PCR) Not detected, Parainfluenza 4 (PCR) Not detected, RSV (PCR) Not detected, Entero/Rhino (PCR) Not detected, SARS-CoV-2 (PCR) Not detected ASSESSMENT: Please see below. 1. Chronic respiratory failure with bouts of acute bronchitis intermittent 2. Severe hypertension 3. Chronic kidney disease 4. Severe chronic lung disease 5. History of coronary artery disease 6. Hypertension 7. Dyslipidemia 8. Generalized anxiety disorder PLAN: 1. The patient is undergoing CT angiogram of head because of possibility of aneurism. 2. Discharge home if the patient's CTA is normal 3. He will be continued on multiple medication for hypertension 4. Coreg 6.25mg twice a day Plan and coordination of the patient's care discussed in the presence of Digital Photographic Printer and nurse. Prognosis:Guarded SCRIBED BY: KAMI GALEANA Tailer Off scribed while in presence of service performed by Dr. HAILEY SCHULTE on 04/01/20 (0801)
[2020-04-01] MEDS: LEXAPRO PO SCH (09:08)
[2020-04-01] MEDS: PROTONIX PO SCH (09:08)
[2020-04-01] MEDS: FLOMAX PO SCH (09:08)
[2020-04-01] MEDS: CATAPRES PO SCH (09:08)
[2020-04-01] MEDS: MINOXIDIL PO SCH (09:08)
[2020-04-01] MEDS: COZAAR PO SCH (09:08)
[2020-04-01] MEDS: COREG PO SCH (09:08)
[2020-04-01] MEDS: XANAX PO SCH (09:08)
[2020-04-01] MEDS: NORVASC PO SCH (09:08)
[2020-04-01] MEDS: ANORO ELLIPTA 62.5-25 MCG INH IH SCH (09:09)
[2020-04-01] MEDS: FLOVENT HFA 220 MCG IH SCH (09:09)
[2020-04-01] MEDS: MIRALAX PO SCH (09:09)
[2020-04-01] MEDS: LASIX TAB PO SCH (09:09)
[2020-04-01] MEDS: MUCINEX PO SCH (09:09)
--- NOTE | 2020-04-01 10:15 | CT ---
EXAM: CT angiogram of the [place] with and without contrast TECHNIQUE: Helical axial CT angiogram of the [place] was performed with and without contras t with coronal and sagittal and multiplanar reconstructions as well as separate work station 3-D lindsay paulino. All CT scans are performed using dose optimization techniques as appropriate to the performe d exam and includes at least one of the following: Automated exposure control, adjustment of the mA a nd/or kV according to size, and the use of iterative reconstruction technique. COMPARISON: Head CT from earlier today. HISTORY: Concern for basilar aneurysm. History of headache FINDINGS: Right internal carotid artery distribution: The right internal carotid artery is widely patent. The M 1 segment, bifurcation, M2 segments and opercular branches of the middle cerebral artery as well as t he A1 and A2 segments of the anterior cerebral artery and their visualized branches are all widely pa tent. There is non stenotic calcific atherosclerosis of the carotid siphon. Left internal carotid artery distribution: The left internal carotid artery is widely patent. The M1 segment, bifurcation, M2 segments and opercular branches of the middle cerebral artery as well as the A1 and A2 segments of the anterior cerebral artery and their visualized branches are all widely davies nt. There is non stenotic calcific atherosclerosis of the carotid siphon. Anterior communicating artery: Patent Posterior communicating arteries: Small and patent on the right and not seen on the left Vertebral basilar system: The V4 segments of the vertebral arteries and the basilar artery and its br anches are widely patent. The left vertebral artery is dominant. 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 No aneurysm is present. There is non stenotic calcific atherosclerosis of the left vertebral artery. There are no aneurysms or vascular malformations. The dural sinuses are widely patent. Head CT is unchanged. IMPRESSION: 1. 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 T here is no saccular aneurysm here or elsewhere. 2. Non stenotic calcific atherosclerosis of the bilateral carotid siphons and left vertebral artery. The vessels of the [place] are widely patent with no branch occlusion or focal stenosis. All CT scans are performed using dose optimization techniques as appropriate to the performed exam an d include at least one of the following: Automated exposure control, adjustment of the mA and/or kV according t o size, and the use of iterative reconstruction technique.
--- NOTE | 2020-04-01 11:37 | CM.DICTOOL ---
ADMISSION: 03/27/20 17:01 DISCHARGE: APRIL 01, 2020 DATE OF SERVICE: 04/01/20 FINAL DIAGNOSIS HYPERTENSION, SEVERE CHEST PAIN, PLEURITIC CHRONIC LUNG DISEASE, SEVERE CHRONIC RESPIRATORY FAILURE HEADACHE HYPONATREMIA, RESOLVED HISTORY: CHRONIC RESPIRATORY FAILURE, OYXGEN DEPENDENT EMPHYSEMA, OXYGEN DEPENDENT INTERMITTENT ACUTE BRONCHITIS CHRONIC BRONCHITIS CORONARY ARTERY DISEASE WITH STENT PALPITATIONS ANXIETY SECONDARY POLYCYTHEMIA (HX THERAPEUTIC PHLEBOTOMY) SLEEP APNEA, USES C-PAP BENIGN PROSTATIC HYPERTROPHY (SEES DR. QUINTANILLA) HYPERGLYCEMIA RIGHT SCIATICA ECHOCARDIOGRAM: 12/18/2019 [facility] ENLARGED RIGHT VENTRICLE CAVITY NORMAL LV CONTRACTILITY NORMAL VALVES LVEF 67% CARDIAC STENT PLACEMENT, 1999 BILATERAL CATARACT EXTRACTION, 2014 LAST VITALS Temp Pulse Resp BP Pulse Ox 98.4 F 80 18 160/76 H 98 04/01/20 06:00 04/01/20 06:00 04/01/20 06:00 04/01/20 06:00 04/01/20 06:00 TAKE THESE MEDICATIONS AT HOME Albuterol Sulfate (Albuterol Sulfate (Ventolin Hfa) 18 Gm 1 Puff With Spacer) 2 puff IH Q 4-6H PRN Last Admin: 04/01/20 04:45 Dose: 2 puff Documented by: Albuterol sulfate 1 vial in Nebulizer [facility] Last Admin: Budesonide 1 mg Inhalation Daily Last Admin: Alprazolam (Alprazolam 0.5 Mg Tablet) 0.5 mg PO BID [facility] Last Admin: 04/01/20 09:08 Dose: 0.5 mg Documented by: Amlodipine Besylate (Amlodipine Besylate 5 Mg Tablet) 5 mg PO BID [facility] Last Admin: 04/01/20 09:08 Dose: 5 mg Documented by: Aspirin (Aspirin 81 Mg Tablet.) 81 mg PO BEDTIME [facility] Last Admin: 03/31/20 20:08 Dose: 81 mg Documented by: Carvedilol (Carvedilol 6.25 Mg Tablet) 6.25 mg PO BID [facility] (RX GIVEN FOR DOSE CHANGE) Last Admin: 04/01/20 09:08 Dose: 6.25 mg Documented by: Clonidine (Clonidine Hcl 0.1 Mg Tablet) 0.1 mg PO DAILY [facility] (RX GIVEN FOR DOSE CHANGE) Last Admin: 04/01/20 09:08 Dose: 0.1 mg Documented by: Escitalopram Oxalate (Escitalopram Oxalate 10 Mg Tablet) 10 mg PO DAILY [facility] Last Admin: 04/01/20 09:08 Dose: 10 mg Documented by: Furosemide (Furosemide 20 Mg Tablet) 20 mg PO QDAC [facility] (NEW RX) Last Admin: 04/01/20 09:09 Dose: 20 mg Documented by: K- Tab 10 meq PO DAILY [facility] (NEW RX) Last Admin: Guaifenesin (Guaifenesin 600 Mg Tablet.Er) 600 mg PO BID [facility] Last Admin: 04/01/20 09:09 Dose: 600 mg Documented by: Losartan Potassium (Losartan Potassium 100 Mg Tablet) 100 mg PO DAILY [facility] Last Admin: 04/01/20 09:08 Dose: 100 mg Documented by: Minoxidil (Minoxidil 2.5 Mg Tablet) 5 mg PO BID [facility] (NEW RX) Last Admin: 04/01/20 09:08 Dose: 5 mg Documented by: Pantoprazole Sodium (Pantoprazole Sodium 40 Mg Tablet.Dr) 40 mg PO QDAC [facility] Last Admin: 04/01/20 09:08 Dose: 40 mg Documented by: Polyethylene Glycol (Polyethylene Glycol 17 Gm Powd.Pack) 17 gm PO DAILY [facility] Last Admin: 04/01/20 09:09 Dose: 17 gm Documented by: Tamsulosin HCl (Tamsulosin Hcl 0.4 Mg Cap.Er.24h) 0.8 mg PO DAILY [facility] Last Admin: 04/01/20 09:08 Dose: 0.8 mg Documented by: Shruthi Desai 2 puffs IH Daily [facility] Last Admin: 04/01/20 09:09 Dose: 1 inh Documented by: ALLERGIES levofloxacin [From Levaquin] Adverse Reaction (Verified 03/27/20 15:36) DISCONTINUED MEDICATIONS CLONIDINE 0.4 MG BID COREG 6.25 MG DAILY MEDICATION CHANGES DECREASE CLONIDINE TO 0.1 MG DAILY INCREASE COREG TO 6.25 MG BID NEW PRESCRIPTIONS: MINOXIDIL 5 MG BID LASIX 20 MG DAILY K-TAB 10 MEQ DAILY COREG 6.25 MG BID CLONIDINE 0.1 MG DAILY SMOKING: NOT APPLICABLE DISEASE SPECIFIC EDUCATION: LOW SALT DIET ELEVATE LEGS NEW MEDICATION MEDICATION CHANGES HYPERTENSION APPOINTMENT LAB REVIEW: 04/01/20 04:50 04/01/20 04:50 04/01/20 04:50: Sodium 135.6, Potassium 4.41, Chloride 99.6, Carbon Dioxide 30.1 H D, Anion Gap 10.31, BUN 25.0 H, Creatinine 1.23 H, Estimated GFR (MDRD) 57.00, BUN/Creatinine Ratio 20.32, Glucose 98.1, Calcium 9.25, Total Bilirubin 0.62, AST 21.6, ALT 15.6, Alkaline Phosphatase 62.4, Total Protein 6.91, Albumin 4.18, Globulin 2.73, Albumin/Globulin Ratio 1.53 04/01/20 04:50: WBC 7.60, RBC 5.13, Hgb 16.2, Hct 47.9, MCV 93.4, MCH 31.6 H, MCHC 33.8, RDW Coeff of Bhaskar 13.1, Plt Count 245, Immature Gran % (Auto) 0.7, Neut % (Auto) 58.7, Lymph % (Auto) 24.5, [place] % (Auto) 15.4 H, Eos % (Auto) 0.4, Baso % (Auto) 0.3, Neut # (Auto) 4.5, Lymph # (Auto) 1.9, [place] # (Auto) 1.2, Eos # (Auto) 0.0, Baso # (Auto) 0.0, Immature Gran # (Auto) 0.1 03/31/20 14:10: Adenovirus (PCR) Not detected, B. pertussis DNA (PCR) Not detected, B.parapertussis DNA PCR Not detected, C. pneumoniae DNA (PCR) Not detected, Coronavirus OC43 (PCR) Not detected, Coronavirus HKU1 (PCR) Not detected, Coronavirus 229E (PCR) Not detected, Coronavirus NL63 (PCR) Not detected, Human Metapneumovir PCR Not detected, Influenza B (RT-PCR) Not detected, M. pneumoniae (PCR) Not detected, Parainfluenza 1 (PCR) Not detected, Parainfluenza 2 (PCR) Not detected, Parainfluenza 3 (PCR) Not detected, Parainfluenza 4 (PCR) Not detected, RSV (PCR) Not detected, Entero/Rhino (PCR) Not detected, SARS-CoV-2 (PCR) Not detected PLAN: DISCHARGE HOME DIET: HEART HEALTHY, DECREASE ADDED SALT ACTIVITY: RESUME TOLERATED ELEVATE LEGS WHEN SITTING USE OXYGEN AT 3 LITERS CONTINUOUSLY CONTINUE TO USE NEBULIZER TREATMENTS INSTRUCTED AVOID CROWDS AN APPOINTMENT IS SCHEDULED WITH DR. SCHULTE/HERNESTO ANDERSON APRN/KEHINDE HERNANDES APRN ON March AT 2 PM CODE STATUS: DO NOT RESUSCITATE MR. DELGADO IS ALERT AND ORIENTED X 4. HE IS BASICALLY INDEPENDENT WITH ACTIVITIES OF DAILY LIVING. HE REPORTS HIS DAUGHTER LIVES WITH HIM TO HELP WITH COOKING, CLEANING AND "TAKE CARE OF HIM". MR. DELGADO IS OXYGEN DEPENDENT. HE REPORTS HE HAS OXYGEN AND A NEBULIZER AT HOME. HE ALSO A C-PAP MACHINE DUE TO SLEEP APNEA AND A COMPRESSION VEST. MR. DELGADO ALSO HAS A PULSE OXIMETRY TO USE FOR CHECKING HIS OXYGEN SATURATION AND HEART RATE. HE ALSO HAS A BLOOD PRESSURE CUFF TO MEASURE HIS BLOOD PRESSURE SEVERAL TIMES A DAY. MR. DELGADO TRANSFERS SELF FROM THE BED TO THE CHAIR AND IS AMBULATORY IN THE ROOM WITHOUT USE OF AN ASSISTIVE DEVICE OR STAFF ASSISTANCE. HE IS INDEPENDENT WITH ALL MEALS. . MEAL INTAKES ARE GOOD AT 100%. MR. DELGADO IS CONTINENT OF BOWEL AND BLADDER. HYDRATION STATUS IS GOOD. SKIN IS ELIUD IN COLOR. NO DECUBITUS ULCERS OR SKIN BREAKDOWN NOTED. HAILEY SCHULTE MD
[2020-04-01] MEDS ORDERED: COREG PO SCH (17:00)
[2020-04-02] MEDS ORDERED: MICRO-K CAP PO SCH (08:30)
--- NOTE | 2020-04-04 14:50 | DS ---
DATE OF SERVICE: 04/01/20 FINAL DIAGNOSIS: 1. HYPERTENSION, SEVERE 2. CHEST PAIN, PLEURITIC 3. CHRONIC LUNG DISEASE, SEVERE 4. CHRONIC RESPIRATORY FAILURE 5. HEADACHE 6. HYPONATREMIA, RESOLVED HISTORY: 7. CHRONIC RESPIRATORY FAILURE, OYXGEN DEPENDENT 8. EMPHYSEMA, OXYGEN DEPENDENT 9. INTERMITTENT ACUTE BRONCHITIS 10. CHRONIC BRONCHITIS 11. CORONARY ARTERY DISEASE WITH STENT 12. PALPITATIONS 12. ANXIETY 13. SECONDARY POLYCYTHEMIA (HX THERAPEUTIC PHLEBOTOMY) 14. SLEEP APNEA, USES C-PAP 15. BENIGN PROSTATIC HYPERTROPHY (SEES DR. QUINTANILLA) 16. HYPERGLYCEMIA 17. RIGHT SCIATICA 18. ECHOCARDIOGRAM: 12/18/2019, LV[facility], ENLARGED RIGHT VENTRICLE CAVITY, NORMAL LV CONTRACTILITY, NORMAL VALVES, LVEF 67% 19. CARDIAC STENT PLACEMENT, 1999 20. BILATERAL CATARACT EXTRACTION, 2014 LAST VITALS Temp Pulse Resp BP Pulse Ox 98.4 F 80 18 160/76 H 98 04/01/20 06:00 04/01/20 06:00 04/01/20 06:00 04/01/20 06:00 04/01/20 06:00 DISCHARGE INSTRUCTIONS: 1. ELEVATE LEGS WHEN SITTING. 2. USE OXYGEN AT 3 LITERS CONTINUOUSLY. 3. CONTINUE TO USE NEBULIZER TREATMENTS INSTRUCTED. 4. AVOID CROWDS. 5. AN APPOINTMENT IS SCHEDULED WITH DR. SCHULTE/HERNESTO ANDERSON APRN/KEHINDE HERNANDES APRN ON March AT 2 PM. MEDICATIONS AT DISCHARGE: Albuterol Sulfate (Albuterol Sulfate (Ventolin Hfa) 18 Gm 1 Puff With Spacer) 2 puff IH Q 4-6H PRN Last Admin: 04/01/20 04:45 Dose: 2 puff Documented by: Albuterol sulfate 1 vial in Nebulizer TID [facility] Last Admin: Budesonide 1 mg Inhalation Daily Last Admin: Alprazolam (Alprazolam 0.5 Mg Tablet) 0.5 mg PO BID [facility] Last Admin: 04/01/20 09:08 Dose: 0.5 mg Documented by: Amlodipine Besylate (Amlodipine Besylate 5 Mg Tablet) 5 mg PO BID [facility] Last Admin: 04/01/20 09:08 Dose: 5 mg Documented by: Aspirin (Aspirin 81 Mg Tablet.) 81 mg PO BEDTIME [facility] Last Admin: 03/31/20 20:08 Dose: 81 mg Documented by: Carvedilol (Carvedilol 6.25 Mg Tablet) 6.25 mg PO BID [facility] (RX GIVEN FOR DOSE CHANGE) Last Admin: 04/01/20 09:08 Dose: 6.25 mg Documented by: Clonidine (Clonidine Hcl 0.1 Mg Tablet) 0.1 mg PO DAILY [facility] (RX GIVEN FOR DOSE CHANGE) Last Admin: 04/01/20 09:08 Dose: 0.1 mg Documented by: Escitalopram Oxalate (Escitalopram Oxalate 10 Mg Tablet) 10 mg PO DAILY [facility] Last Admin: 04/01/20 09:08 Dose: 10 mg Documented by: Furosemide (Furosemide 20 Mg Tablet) 20 mg PO QDAC [facility] (NEW RX) Last Admin: 04/01/20 09:09 Dose: 20 mg Documented by: K- Tab 10 meq PO DAILY [facility] (NEW RX) Last Admin: Guaifenesin (Guaifenesin 600 Mg Tablet.Er) 600 mg PO BID [facility] Last Admin: 04/01/20 09:09 Dose: 600 mg Documented by: Losartan Potassium (Losartan Potassium 100 Mg Tablet) 100 mg PO DAILY [facility] Last Admin: 04/01/20 09:08 Dose: 100 mg Documented by: Minoxidil (Minoxidil 2.5 Mg Tablet) 5 mg PO BID [facility] (NEW RX) Last Admin: 04/01/20 09:08 Dose: 5 mg Documented by: Pantoprazole Sodium (Pantoprazole Sodium 40 Mg Tablet.Dr) 40 mg PO QDAC [facility] Last Admin: 04/01/20 09:08 Dose: 40 mg Documented by: Polyethylene Glycol (Polyethylene Glycol 17 Gm Powd.Pack) 17 gm PO DAILY [facility] Last Admin: 04/01/20 09:09 Dose: 17 gm Documented by: Tamsulosin HCl (Tamsulosin Hcl 0.4 Mg Cap.Er.24h) 0.8 mg PO DAILY [facility] Last Admin: 04/01/20 09:08 Dose: 0.8 mg Documented by: Stiolfunmi Resimat 2 puffs IH Daily [facility] Last Admin: 04/01/20 09:09 Dose: 1 inh Documented by: NEW PRESCRIPTIONS: MINOXIDIL 5 MG BID LASIX 20 MG DAILY K-TAB 10 MEQ DAILY COREG 6.25 MG BID CLONIDINE 0.1 MG DAILY DISCONTINUED MEDICATIONS: CLONIDINE 0.4 MG BID COREG 6.25 MG DAILY MEDICATION CHANGES: DECREASE CLONIDINE TO 0.1 MG DAILY INCREASE COREG TO 6.25 MG BID DIET INSTRUCTIONS: HEART HEALTHY, DECREASE ADDED SALT ACTIVITY: RESUME TOLERATED SMOKING: NOT APPLICABLE DISEASE SPECIFIC EDUCATION: LOW SALT DIET ELEVATE LEGS NEW MEDICATION MEDICATION CHANGES HYPERTENSION APPOINTMENT HOSPITAL COURSE: The patient was hospitalized with headache and chest pain. The patient's chest pain was noncardiac more like a pleuritic type. The patient had hypertension, blood pressure was 188/120. The patient was initially treated with IV Vasotec every 6 hourly for blood pressure of more than 150. All the patient's medications were continued including Clonidine of 0.4 b.i.d., a really heavy dose. During the stay in the hospital, the patient got a dose of Lasix and diuretics were started for his fluid retention which was probably secondary to his salt diet and Dexamethasone that he has been getting. The patient responded to diuretic therapy along with Minoxidil. He was slowly taken off Clonidine. At the time of discharge, the patient was on 0.1 mg of Clonidine along with his other usual medications. He was put on increasing dose of Coreg which now is 12 1/2 mg twice a day. The patient had questionable finding on CT scan of the head followed by CT angiogram which was unremarkable with no evidence of aneurysm. The patient was discharged home with Clonidine being 0.1 mg once a day, Minoxidil, new medication and increased dose of Coreg. The patient's cardiovascular status was stable with no evidence of any ischemia or IA, only pleuritic pain. The patient was Covid negative. The patient, at the time of discharge was stable. TIME SPENT: More than 60 minutes. MTDD
--- NOTE | 2020-04-05 10:15 | PN ---
BILLING 03/27/20 ADMISSION DAY LEVEL 5 03/28/20 EXTENSIVE 03/29/20 EXTENSIVE 03/30/20 INTERMEDIATE 03/31/20 INTERMEDIATE 04/01/20 D IN DISCHARGE MTDD
== END 2020-04-01 13:29 | disposition home or self-care (01) | DRG 313 ==
LOC: ED 15:31 → MEDSURG A 17:01
PROVIDERS: ADMIT Internal Medicine; ATTEND Internal Medicine
DX: R42 Dizziness and giddiness; J96.10 Chronic respiratory failure, unspecified whether with hypoxia or hypercapnia; Z99.81 Dependence on supplemental oxygen; F41.1 Generalized anxiety disorder; E87.1 Hypo-osmolality and hyponatremia; J44.1 Chronic obstructive pulmonary disease with (acute) exacerbation; R51.9 Headache, unspecified; R06.02 Shortness of breath; I10 Essential (primary) hypertension; N18.6 End stage renal disease; I25.10 Atherosclerotic heart disease of native coronary artery without angina pectoris; R60.0 Localized edema; R07.9 Chest pain, unspecified; E78.5 Hyperlipidemia, unspecified; Z20.822 Contact with and (suspected) exposure to COVID-19

== ENCOUNTER 2020-10-10 10:18 | Inpatient (IN) ==
--- NOTE | 2020-10-10 10:54 | ED.PDOC ---
General ED Provider: Dr. NERY ARAUJO MD Chief Complaint: Shortness of Air Stated Complaint: shortness of breath Time Seen by Provider: 10/10/20 10:50 Mode of Arrival: Ambulance Information Source: Patient and EMT Primary Care Provider: HAILEY SCHULTE Nursing and Triage Documentation Reviewed and Agree: Yes Does patient meet sepsis criteria?: No System Inflammatory Response Syndrome: Resp >20/Minute Sepsis Protocol: For patient's 13 years and over: Temp is 96.8 and below OR 101 and greater Pulse >90 BPM Resp >20/minute Acutely Altered Mental Status Are patient's symptoms suggestive of a new infection, such as: -Pneumonia -Skin, Soft Tissue -Endocarditis -UTI -Bone, Joint Infection -Implantable Device -Acute Abdominal Infection -Wound Infection -Meningitis -Blood Stream Catheter Infection -Unknown Review of Systems Review Of Systems Constitutional: Reports Chills and Malaise Ears, Nose, Mouth, Throat: Denies No symptoms (nasal congestion) Respiratory: Reports Cough (productive, thick yellow sputum) and Short of air Neurological: Reports Headache All Other Systems: Reviewed and Negative [facility] Medical History (Updated 10/10/20 @ 14:21 by NATY ANDREA) Anxiety Blood disease BPH (benign prostatic hyperplasia) CAD (coronary artery disease) Cancer of skin of external nose (~10/04/20) Chronic bronchitis Chronic respiratory failure COPD (chronic obstructive pulmonary disease) Emphysema of lung Enlarged heart Gastroesophageal reflux disease Hypertension Osteoarthritis Oxygen dependent Prostate enlargement Sciatica, right side Seasonal allergies Secondary polycythemia Sleep apnea Stage 3 chronic kidney disease Family History Mother Obstetric anesthesia problems Emphysema of lung Social History Smoking and tobacco status: Former smoker History of recent travel: No Surgical History (Updated 10/10/20 @ 14:22 by NATY ANDREA) History of bilateral cataract extraction History of coronary artery stent placement History of tonsillectomy Additional Medical History: Patient has h/o COPD on 4LNC at baseline. He became symptomatic ~2 weeks ago. The symptoms are progressively worsening. He is not SOB at rest, and maintains adequate saturation until mild exertion is done. If he walks even a few feet he desaturates, regardless of the administration of exogenous Oxygen. Physical Exam Physical Exam Appearance: Reports Well-nourished Ill-appearing: Moderate Pain Distress: Mild Eyes: Reports ABDIAS, EOMI and Conjunctiva clear ENT: Reports Nose normal Neck: Nonsupple (age-appropriate) Respiratory: Reports Airway patent, Breath sounds clear, Breath sounds equal and Breath sounds diminished (severe) Cardiovascular: Reports RRR GI/: Reports Soft, Nontender and Bowel sounds normal Musculoskeletal: Reports Normal strength and ROM intact Skin: Reports Warm, Dry and Normal color Neurological: Reports Sensation intact, Motor intact, Alert and Oriented Psychiatric: Reports Affect appropriate and Mood appropriate Interpretation EKG Interpretation Time of EKG #1: 11:30 Rate: Normal (74) Rhythm: Sinus (1st degree AV block) Ectopy: None [place]: Right ST Segment: Normal Interpretation: IVCD Critical Care Note Critical Care Note Total Critical Care Time (mins): 0 Course Course Hematology/Chemistry: 10/11/20 04:39 10/11/20 04:39 Orders, Labs, Meds: Lab Review 10/10/20 10/10/20 10/10/20 10:40 11:21 11:36 WBC 6.45 RBC 4.30 L Hgb 14.0 Hct 40.5 L MCV 94.2 H MCH 32.6 H MCHC 34.6 RDW Coeff of Bhaskar 12.7 Plt Count 164 Immature Gran % (Auto) 0.3 Neut % (Auto) 57.4 Lymph % (Auto) 25.3 Bell % (Auto) 10.5 H Eos % (Auto) 6.2 Baso % (Auto) 0.3 Neut # (Auto) 3.7 Lymph # (Auto) 1.6 Bell # (Auto) 0.7 Eos # (Auto) 0.4 Baso # (Auto) 0.0 Immature Gran # (Auto) 0.0 Puncture Site R rad Base Excess -0.4 O2 Saturation 98.8 H ABG pH 7.44 ABG pCO2 35.0 ABG pO2 119.0 H ABG HCO3 23.8 ABG Total CO2 24.9 H Albino Test + Hemoglobin 1.6 H Oxyhemoglobin 94.1 L Carboxyhemoglobin 3.7 H Total Hemoglobin 14.9 O2 Delivery Device Nc Oxygen Liter Flow 4.00 Sodium Potassium Chloride Carbon Dioxide Anion Gap BUN Creatinine Estimated GFR (MDRD) BUN/Creatinine Ratio Glucose Calcium Magnesium Total Bilirubin AST ALT Alkaline Phosphatase Total Creatine Kinase Troponin I NT-Pro-B Natriuret Pep Total Protein Albumin Globulin Albumin/Globulin Ratio TSH Adenovirus (PCR) Not detected B. pertussis DNA (PCR) Not detected B.parapertussis DNA PCR Not detected C. pneumoniae DNA (PCR) Not detected Coronavirus OC43 (PCR) Not detected Coronavirus HKU1 (PCR) Not detected Coronavirus 229E (PCR) Not detected Coronavirus NL63 (PCR) Not detected Human Metapneumovir PCR Not detected Influenza Type A (PCR) Not detected Influenza B (RT-PCR) Not detected M. pneumoniae (PCR) Not detected Parainfluenza 1 (PCR) Not detected Parainfluenza 2 (PCR) Not detected Parainfluenza 3 (PCR) Not detected Parainfluenza 4 (PCR) Not detected RSV (PCR) Not detected Entero/Rhino (PCR) Not detected SARS-CoV-2 (PCR) Not detected 10/10/20 11:36 WBC RBC Hgb Hct MCV MCH MCHC RDW Coeff of Bhaskar Plt Count Immature Gran % (Auto) Neut % (Auto) Lymph % (Auto) Bell % (Auto) Eos % (Auto) Baso % (Auto) Neut # (Auto) Lymph # (Auto) Bell # (Auto) Eos # (Auto) Baso # (Auto) Immature Gran # (Auto) Puncture Site Base Excess O2 Saturation ABG pH ABG pCO2 ABG pO2 ABG HCO3 ABG Total CO2 Albino Test Hemoglobin Oxyhemoglobin Carboxyhemoglobin Total Hemoglobin O2 Delivery Device Oxygen Liter Flow Sodium 134.7 Potassium 4.44 Chloride 100.5 Carbon Dioxide 29.1 Anion Gap 9.54 BUN 18.4 Creatinine 1.16 H Estimated GFR (MDRD) 61.00 BUN/Creatinine Ratio 15.86 Glucose 106.5 H Calcium 8.81 Magnesium 1.86 Total Bilirubin 0.72 AST 24.9 ALT 18.4 Alkaline Phosphatase 60.1 Total Creatine Kinase 95.8 Troponin I < 0.012 NT-Pro-B Natriuret Pep 95.100 Total Protein 6.62 Albumin 4.02 Globulin 2.60 Albumin/Globulin Ratio 1.54 TSH 1.960 Adenovirus (PCR) B. pertussis DNA (PCR) B.parapertussis DNA PCR C. pneumoniae DNA (PCR) Coronavirus OC43 (PCR) Coronavirus HKU1 (PCR) Coronavirus 229E (PCR) Coronavirus NL63 (PCR) Human Metapneumovir PCR Influenza Type A (PCR) Influenza B (RT-PCR) M. pneumoniae (PCR) Parainfluenza 1 (PCR) Parainfluenza 2 (PCR) Parainfluenza 3 (PCR) Parainfluenza 4 (PCR) RSV (PCR) Entero/Rhino (PCR) SARS-CoV-2 (PCR) Orders Category Date Time Status ABG DRAW REQUEST Stat CARDIO 10/10/20 11:17 Completed EKG-(ED ONLY) Stat CARDIO 10/10/20 11:13 Completed ED IV/MEDIPORT/POWERPORT .ONCE EMERGENCY 10/10/20 12:11 Active ABG COOX Stat LAB 10/10/20 11:21 Completed CBC W/ AUTO DIFF Stat LAB 10/10/20 11:36 Completed COMPREHENSIVE METABOLIC PANEL Stat LAB 10/10/20 11:36 Completed CREATINE KINASE Stat LAB 10/10/20 11:36 Completed MAGNESIUM Stat LAB 10/10/20 11:36 Completed NT-PROBNP Stat LAB 10/10/20 11:36 Completed RESPIRATORY PANEL 2.1 (PCR) Stat LAB 10/10/20 10:40 Completed THYROID STIMULATING HORMONE Stat LAB 10/10/20 11:36 Completed TROPONIN I Stat LAB 10/10/20 11:36 Completed 0.9 % Sodium Chloride [Saline Flush] MEDS 10/10/20 12:11 Active 1 syr IVF PRN PRN Ceftriaxone/D5w 1 gm Premix [Rocephin 1 gm/50 ml D5w] MEDS 10/10/20 12:30 Discontinued 1 gm in 50 ml IV DAILY Furosemide [Lasix] MEDS 10/10/20 12:11 Discontinued 20 mg IVP ONCE ONE Ipratropium/Albuterol Neb [Duoneb] MEDS 10/10/20 12:11 Discontinued 3 ml NEB ONCE ONE CHEST, 2 VIEWS PA & LAT Stat RADS 10/10/20 11:08 Completed Medications Generic Name Dose Route Start Last Admin Trade Name Freq PRN Reason Stop Dose Admin Acetaminophen 650 mg 10/10/20 13:51 10/10/20 14:39 Acetaminophen 325 Mg Tablet PO 650 mg Q4H PRN Administration Headache Albuterol Sulfate 2 puff 10/10/20 13:45 Albuterol Sulfate (Ventolin Hfa) 18 Gm 1 Puff With Spacer IH Q4-6H PRN Bronchodialation Albuterol Sulfate 0.083 mg 10/10/20 20:00 10/11/20 04:30 Albuterol Sulfate 0.083% Vial.Neb NEB 0.083 mg RTTID BANDAR Administration Alprazolam 0.5 mg 10/10/20 21:00 10/10/20 21:06 Alprazolam 0.5 Mg Tablet PO 0.5 mg BID BANDAR Administration Amlodipine Besylate 5 mg 10/10/20 21:00 10/10/20 21:07 Amlodipine Besylate 5 Mg Tablet PO 5 mg BID BANDAR Administration Aspirin 81 mg 10/10/20 21:00 10/10/20 21:07 Aspirin 81 Mg Tablet. PO 81 mg BEDTIME BANDAR Administration Atropine Sulfate 0.5 mg 10/10/20 13:51 Atropine Sulfate Inj 1 Mg/10 Ml Disp.Syrin IVP ONCE PRN Symptomatic Bradycardia Azithromycin 500 mg 10/11/20 09:00 Azithromycin 250 Mg Tablet PO 10/12/20 10:59 DAILY BANDAR Budesonide 0.5 mg 10/10/20 20:00 10/11/20 04:30 Budesonide 0.5 Mg/2 Ml Vial.Neb NEB 0.5 mg BANDAR Administration Carvedilol 6.25 mg 10/10/20 17:00 10/10/20 16:34 Carvedilol 6.25 Mg Tablet PO 6.25 mg BIDWM BANDAR Administration Clonidine 0.1 mg 10/10/20 14:00 10/10/20 21:06 Clonidine Hcl 0.1 Mg Tablet PO 0.1 mg TID BANDAR Administration Escitalopram Oxalate 10 mg 10/11/20 09:00 Escitalopram Oxalate 10 Mg Tablet PO DAILY BANDAR Furosemide 20 mg 10/11/20 06:30 10/11/20 05:50 Furosemide 20 Mg Tablet PO 20 mg QDAC BANDAR Administration Guaifenesin 600 mg 10/10/20 21:00 10/10/20 21:06 Guaifenesin 600 Mg Tablet.Er PO 600 mg BID BANDAR Administration CEFTRIAXONE/D5W 1 GM PREMIX 1 gm in 50 mls @ 75 mls/hr 10/11/20 09:00 Rocephin 1 Gm/50 Ml D5w IV 10/14/20 08:59 DAILY BANDAR Losartan Potassium 100 mg 10/11/20 09:00 Losartan Potassium 100 Mg Tablet PO DAILY BANDAR Methylprednisolone Sodium Succinate 125 mg 10/10/20 21:00 10/11/20 05:50 Methylprednisolone Sod Succ/Pf 125 Mg/2 Ml Vial IVP 125 mg Q8HR BANDAR Administration Minoxidil 5 mg 10/10/20 21:00 10/10/20 21:06 Minoxidil 2.5 Mg Tablet PO 5 mg BID BANDAR Administration Nitroglycerin 0.4 mg 10/10/20 13:51 Nitroglycerin 0.4 Mg Tab.Subl SL Q5MIN X 3 DOSES PRN Chest Pain Pantoprazole Sodium 40 mg 10/11/20 06:30 10/11/20 05:49 Pantoprazole Sodium 40 Mg Tablet. PO 40 mg QDAC BANDAR Administration Polyethylene Glycol 17 gm 10/11/20 09:00 Polyethylene Glycol 17 Gm Powd.Pack PO DAILY BANDAR Potassium Chloride 10 meq 10/11/20 08:30 Potassium Chloride 10 Meq Capsule.Er PO DAILYWM BANDAR Sodium Chloride 1 syr 10/10/20 12:11 10/10/20 12:39 0.9% Sodium Chloride 10 Ml Disp.Syrin IVF 1 syr PRN PRN Administration To flush IV Sodium Chloride 1 syr 10/10/20 21:00 10/11/20 05:50 0.9% Sodium Chloride 10 Ml Disp.Syrin IVF 1 syr Q8HR BANDAR Administration Tamsulosin HCl 0.8 mg 10/10/20 21:00 10/10/20 21:06 Tamsulosin Hcl 0.4 Mg Cap.Er.24h PO 0.8 mg BEDTIME BANDAR Administration Umeclidinium/Vilanterol 1 inh 10/11/20 09:00 Umeclidinium Brm/Vilanterol 1 Each Blst.W.Dev IH DAILY BANDAR Discontinued Medications Generic Name Dose Route Start Last Admin Trade Name Freq PRN Reason Stop Dose Admin Albuterol/Ipratropium 3 ml 10/10/20 12:11 10/10/20 12:24 Ipratropium/Albuterol Vial.Neb NEB 10/10/20 12:12 3 ml ONCE ONE Administration Budesonide 0.5 mg 10/10/20 14:00 Budesonide 0.5 Mg/2 Ml Vial.Neb NEB DAILY BANDAR Furosemide 20 mg 10/10/20 12:11 10/10/20 12:37 Furosemide Inj 20 Mg/2 Ml Vial IVP 10/10/20 12:12 20 mg ONCE ONE Administration CEFTRIAXONE/D5W 1 GM PREMIX 1 gm in 50 mls @ 75 mls/hr 10/10/20 12:30 12:39 Rocephin 1 Gm/50 Ml D5w IV 10/13/20 12:29 Not Given DAILY BANDAR CEFTRIAXONE/D5W 1 GM PREMIX 1 gm in 50 mls @ 75 mls/hr 10/10/20 12:22 10/10/20 12:36 Rocephin 1 Gm/50 Ml D5w IV 10/10/20 13:01 75 mls/hr ONCE ONE Administration CEFTRIAXONE/D5W 1 GM PREMIX 1 gm in 50 mls @ 75 mls/hr 10/11/20 09:00 Rocephin 1 Gm/50 Ml D5w IV 10/14/20 08:59 DAILY BANDAR Azithromycin 500 mg/ Sodium 250 mls @ 250 mls/hr 10/10/20 13:00 10/10/20 13:54 Chloride IV 10/12/20 12:59 250 mls/hr DAILY BANDAR Administration Methylprednisolone Sodium Succinate 125 mg 10/10/20 12:38 10/10/20 12:39 Methylprednisolone Sod Succ/Pf 125 Mg/2 Ml Vial IVP 10/10/20 12:39 125 mg ONCE STA Administration Non-Formulary Medication 2 puff 10/11/20 09:00 Tiotropium-Olodaterol [Stiolto Respimat] IH DAILY BANDAR Polyethylene Glycol 17 gm 10/10/20 14:19 10/10/20 14:39 Polyethylene Glycol 17 Gm Powd.Pack PO 10/10/20 14:20 17 gm ONCE ONE Administration Vital Signs: Temp Pulse Resp BP Pulse Ox 10/10/20 10:18 97.2 F L 79 28 H 128/67 96 Discharge Plan Discharge Patient Disposition: ADMITTED INPATIENT Discharge Problem: Chronic obstructive pulmonary disease ED Provider: NERY ARAUJO Condition: Stable Physician Progress Note: []
[2020-10-10 10:57] LABS: BORDETELLA PARAPERTUSSIS (PCR) NOT DETECTED (NOT DETECT); BORDETELLA PERTUSSIS (PCR) NOT DETECTED (NOT DETECT); CHLAMYDIA PNEUMONIAE (PCR) NOT DETECTED (NOT DETECT); CORONAVIRUS 229E (PCR) NOT DETECTED (NOT DETECT); CORONAVIRUS HKU1 (PCR) NOT DETECTED (NOT DETECT); CORONAVIRUS NL63 (PCR) NOT DETECTED (NOT DETECT); CORONAVIRUS OC43 (PCR) NOT DETECTED (NOT DETECT); HUMAN METAPNEUMOVIRUS (PCR) NOT DETECTED (NOT DETECT); HUMAN RHINOVIRUS/ENTEROV (PCR) NOT DETECTED (NOT DETECT); INFLUENZA B (PCR) NOT DETECTED (NOT DETECT); MYCOPLASMA PNEUMONIAE (PCR) NOT DETECTED (NOT DETECT); PARAINFLUENZA VIRUS 1 (PCR) NOT DETECTED (NOT DETECT); PARAINFLUENZA VIRUS 2 (PCR) NOT DETECTED (NOT DETECT); PARAINFLUENZA VIRUS 3 (PCR) NOT DETECTED (NOT DETECT); PARAINFLUENZA VIRUS 4 (PCR) NOT DETECTED (NOT DETECT); RESPIRATORY SYNCYTIAL V (PCR) NOT DETECTED (NOT DETECT); SARS_COV_2 (PCR) NOT DETECTED (NOT DETECT)
[2020-10-10 11:44] LABS: BASOPHILS % (AUTO) 0.3 % (0.0-3.0); EOSINOPHILS # (AUTO) 0.4 K/ul (0.0-0.7); EOSINOPHILS % (AUTO) 6.2 % (0.0-7.0); HEMATOCRIT 40.5 % (42.0-52.0); IMMATURE GRANULOCYTE % (AUTO) 0.3 % (0.0-5.0); LYMPHOCYTES # (AUTO) 1.6 K/uL (0.60-3.4); LYMPHOCYTES % (AUTO) 25.3 (10.0-50.0); MEAN CORPUSCULAR HEMOGLOBIN 32.6 pg (27.0-31.0); MEAN CORPUSCULAR HGB CONC 34.6 (31.8-35.4); MEAN CORPUSCULAR VOLUME 94.2 fl (80.0-94.0); MONOCYTES # (AUTO) 0.7 K/uL (0.4-2.0); MONOCYTES % (AUTO) 10.5 (0-10); NEUTROPHILS # (AUTO) 3.7 K/ul (2.0-6.9); NEUTROPHILS % (AUTO) 57.4 % (42.2-75.2); PLATELET COUNT 164 10^3/uL (140-440); RDW COEFFICIENT OF VARIATION 12.7 % (11.6-14.8); WHITE BLOOD COUNT 6.45 K/ul (4.2-10.2)
[2020-10-10 11:45] LABS: ADENOVIRUS (PCR) NOT DETECTED (NOT DETECT)
[2020-10-10 11:54] LABS: ALANINE AMINOTRANSFERASE 18.4 U/L (0-50); ALBUMIN 4.02 g/dL (3.5-5.0); ALKALINE PHOSPHATASE 60.1 U/L (56-119); ASPARTATE AMINO TRANSFERASE 24.9 U/L (17-59); BILIRUBIN,TOTAL 0.72 mg/dL (0.2-1.3); BLOOD UREA NITROGEN 18.4 mg/dL (9-20); CALCIUM 8.81 mg/dL (8.4-10.2); CARBON DIOXIDE 29.1 mmol/L (22-30.0); CHLORIDE 100.5 mmol/L (98-107); CREATINE KINASE 95.8 U/L (55-170); CREATININE 1.16 mg/dL (0.60-1.10); GLUCOSE 106.5 mg/dL (74-106); MAGNESIUM 1.86 mg/dL (1.6-2.3); POTASSIUM 4.44 mmol/L (3.5-5.1); SODIUM 134.7 mmol/L (134.5-145); TOTAL PROTEIN 6.62 g/dL (6.3-8.2)
[2020-10-10 12:06] LABS: ABG PH 7.44 (7.35-7.45); COHb 3.7 (0.5-1.5); HCO3 23.8 (21-28); MetHb 1.6 (0-1.5); TCO2 24.9 (19-24); sO2 98.8 % (94-98); tHb 14.9 g/dl (11.7-17.4)
[2020-10-10 12:07] LABS: TROPONIN I < 0.012 ng/ml (0.0000-0.120)
[2020-10-10 12:07] LABS: ABG O2 HGB 94.1 % (95-100)
[2020-10-10] MEDS ORDERED: DUONEB NEB ONE (12:11)
[2020-10-10] MEDS ORDERED: LASIX IVP ONE (12:11)
[2020-10-10] MEDS ORDERED: SOLU-MEDROL 125 MG 125 MG in SODIUM CHLORIDE 50 ML IV ONE (12:11)
[2020-10-10 12:14] LABS: BEecf -0.4 (-2.0-3.0)
--- NOTE | 2020-10-10 12:17 | DI ---
EXAM: Chest two view, frontal and lateral views. HISTORY: Cough, shortness of breath. COMPARISON: 06/24/2020. FINDINGS: The heart size is normal. There is no pulmonary vascular congestion. Bibasilar scarring again noted. There is a new band-like opacity in the region of the right middle lobe. Otherwise, th e lungs are clear save for calcified granulomatous changes. No pleural effusion or pneumothorax is s een. No acute osseous abnormality identified. IMPRESSION: Right middle lobe atelectasis or pneumonia. Follow-up recommended.
[2020-10-10] MEDS ORDERED: SOLU-MEDROL 125 MG ONE (12:21)
[2020-10-10] MEDS ORDERED: ROCEPHIN 1 GM/50 ML D5W 1 GM/50 ML BAG IV ONE (12:22)
[2020-10-10] MEDS ORDERED: ROCEPHIN 1 GM/50 ML D5W 1 GM/50 ML BAG IV SCH (12:30)
[2020-10-10] MEDS ORDERED: SOLU-MEDROL 125 MG IVP STA (12:38)
[2020-10-10] MEDS ORDERED: ALBUTEROL 0.083% NEB NEB PRN (12:54)
[2020-10-10] MEDS ORDERED: TYLENOL PO PRN ×2 (13:00→13:51)
[2020-10-10] MEDS ORDERED: ZITHROMAX 500 MG in SODIUM CHLORIDE 250 ML IV SCH (13:00)
[2020-10-10 13:20] VITALS: BMI 29.3
[2020-10-10] MEDS ORDERED: VENTOLIN HFA (PER PUFF-WITH SPACER) IH PRN (13:45)
[2020-10-10] MEDS ORDERED: ATROPINE SULFATE PFS IVP PRN (13:51)
[2020-10-10] MEDS ORDERED: NITROSTAT SL PRN (13:51)
[2020-10-10] MEDS ORDERED: PULMICORT 0.5 MG/2 ML NEB SCH (14:00)
[2020-10-10] MEDS ORDERED: MIRALAX PO ONE (14:19)
[2020-10-10] MEDS: CATAPRES PO SCH ×3 (14:39→21:06)
[2020-10-10 15:00] LABS: BILIRUBIN,URINE Negative (NEGATIVE); CLARITY,URINE Clear (CLEAR); COLOR,URINE Yellow (YELLOW); GLUCOSE, URINE (UA) Negative (NEGATIVE); KETONES,URINE Negative (NEGATIVE); LEUKOCYTE ESTERASE ,URINE Negative (NEGATIVE); NITRITE,URINE Negative (NEGATIVE); PH,URINE 5.5 (5-9); PROTEIN,URINE Negative (NEGATIVE); URINE, BLOOD Negative (NEGATIVE); UROBILINOGEN,URINE 0.2 (0.2)
[2020-10-10] MEDS ORDERED: ALBUTEROL 0.083% NEB NEB SCH (15:00)
[2020-10-10] MEDS: COREG PO SCH (16:34)
[2020-10-10] MEDS: ALBUTEROL 0.083% NEB NEB SCH (19:20)
[2020-10-10] MEDS: PULMICORT 0.5 MG/2 ML NEB SCH (19:20)
[2020-10-10] MEDS: MINOXIDIL PO SCH (21:06)
[2020-10-10] MEDS: XANAX PO SCH (21:06)
[2020-10-10] MEDS: MUCINEX PO SCH (21:06)
[2020-10-10] MEDS: FLOMAX PO SCH (21:06)
[2020-10-10] MEDS: NORVASC PO SCH (21:07)
[2020-10-10] MEDS: SOLU-MEDROL 125 MG IVP SCH (21:07)
[2020-10-10] MEDS: ASPIRIN EC PO SCH (21:07)
[2020-10-11] MEDS: PULMICORT 0.5 MG/2 ML NEB SCH ×2 (04:30→20:19)
[2020-10-11] MEDS: ALBUTEROL 0.083% NEB NEB SCH ×3 (04:30→20:19)
[2020-10-11 05:03] LABS: HEMATOCRIT 43.8 % (42.0-52.0); IMMATURE GRANULOCYTE % (AUTO) 0.3 % (0.0-5.0); LYMPHOCYTES # (AUTO) 0.9 K/uL (0.60-3.4); LYMPHOCYTES % (AUTO) 23.3 (10.0-50.0); MEAN CORPUSCULAR HEMOGLOBIN 31.7 pg (27.0-31.0); MEAN CORPUSCULAR HGB CONC 34.2 (31.8-35.4); MEAN CORPUSCULAR VOLUME 92.6 fl (80.0-94.0); MONOCYTES % (AUTO) 0.8 (0-10); NEUTROPHILS # (AUTO) 2.8 K/ul (2.0-6.9); NEUTROPHILS % (AUTO) 75.6 % (42.2-75.2); PLATELET COUNT 184 10^3/uL (140-440); RDW COEFFICIENT OF VARIATION 12.3 % (11.6-14.8); RED BLOOD COUNT 4.73 10^6/ul (4.70-6.10); WHITE BLOOD COUNT 3.74 K/ul (4.2-10.2)
[2020-10-11 05:14] LABS: BLOOD UREA NITROGEN 23.2 mg/dL (9-20); CALCIUM 9.45 mg/dL (8.4-10.2); CARBON DIOXIDE 26.6 mmol/L (22-30.0); CHLORIDE 97.5 mmol/L (98-107); CREATININE 1.28 mg/dL (0.60-1.10); POTASSIUM 4.59 mmol/L (3.5-5.1); SODIUM 134.2 mmol/L (134.5-145)
[2020-10-11] MEDS: PROTONIX PO SCH (05:49)
[2020-10-11] MEDS: SOLU-MEDROL 125 MG IVP SCH ×3 (05:50→21:58)
[2020-10-11] MEDS: LASIX TAB PO SCH (05:50)
[2020-10-11] MEDS ORDERED: ROCEPHIN 1 GM/50 ML D5W 1 GM/50 ML BAG IV SCH (09:00)
[2020-10-11] MEDS ORDERED: NON-FORMULARY MEDICATION (Tiotropium-Olodaterol [Stiolto Respimat] 4 GM mist) IH SCH (09:00)
[2020-10-11] MEDS ORDERED: COZAAR PO SCH (09:00)
[2020-10-11] MEDS: ZITHROMAX PO SCH (09:02)
[2020-10-11] MEDS: LEXAPRO PO SCH (09:03)
[2020-10-11] MEDS: CATAPRES PO SCH ×3 (09:03→20:44)
[2020-10-11] MEDS: COREG PO SCH ×2 (09:03→16:43)
[2020-10-11] MEDS: COZAAR PO SCH (09:03)
[2020-10-11] MEDS: MIRALAX PO SCH (09:03)
[2020-10-11] MEDS: MINOXIDIL PO SCH ×2 (09:03→20:43)
[2020-10-11] MEDS: NORVASC PO SCH ×2 (09:04→20:44)
[2020-10-11] MEDS: MUCINEX PO SCH ×2 (09:04→20:43)
[2020-10-11] MEDS: ROCEPHIN 1 GM/50 ML D5W 1 GM/50 ML BAG IV SCH (09:04)
[2020-10-11] MEDS: XANAX PO SCH ×2 (09:04→20:43)
[2020-10-11] MEDS: MICRO-K CAP PO SCH (09:04)
[2020-10-11] MEDS: ANORO ELLIPTA 62.5-25 MCG INH IH SCH (09:05)
--- NOTE | 2020-10-11 09:16 | PCM.PROG ---
Attending Provider: ATTENDING PROVIDER: Dr. HAILEY SCHULTE This patient is seen with Debbie Garcia, Nurse Practitioner. DATE OF SERVICE: 10/11/20 SUBJECTIVE: This 79 year old /WHITE M was hospitalized 10/10/20. The patient is resting comfortably. Shortness of breath has improved, still wheezing but is better. Leg edema however still with redness. REVIEW OF SYSTEMS: CONSTITUTIONAL: No night sweats. No fatigue, malaise, lethargy. No fever or chills. HEENT: Eyes: No visual changes. No eye pain. No eye discharge. ENT: No runny nose. No epistaxis. No sinus pain. No odynophagia. No congestion. RESPIRATORY: Cough, no congestion. No hemoptysis. Shortness of breath. W heezing. CARDIOVASCULAR: No angina symptoms. No CHF symptoms. No atypical chest pain for CAD. No palpitations. No orthopnea.. GASTROINTESTINAL: No abdominal pain. No nausea or vomiting. No diarrhea or constipation. No hematemesis. No hematochezia. GENITOURINARY: No urgency. No frequency. No dysuria. No hematuria. No obstructive symptoms. No discharge. No pain. No significant abnormal bleeding. MUSCULOSKELETAL: No musculoskeletal pain; no joint swelling. NEUROLOGICAL: Awake, alert, oriented to time, place and person. No headache. No neck pain. No syncope. No seizures. No dizziness. PSYCHIATRIC: Not anxious. No depression. No suicidal thoughts. No homicidal thoughts. SKIN: No rash. No lesions. No wounds. ENDOCRINE: No unexplained weight loss. No weight gain. HEMATOLOGIC/LYMPHATIC: No anemia. No purpura. No petechiae. No prolonged or excessive bleeding. No palpable lymph nodes. PHYSICAL EXAMINATION: GENERAL: The patient is awake, alert and oriented, lying in bed in no distress. VITAL SIGNS: Temperature 97.3 F, Pulse 76, Respiratory Rate 18, BP 114/65, Pu lse Ox 94% HEENT: Head normocephalic, atraumatic. Eyes: Extraocular muscles are intact. Pupils are equal, round and reactive to light and accommodation. Ears: No lesions. Nose appeared normal. Throat: No exudate or erythema. NECK: Supple. No JVD, no carotid bruit. No lymphadenopathy or thyromegaly. LUNGS: Diminished breath sounds. Inspiratory and expiratory wheezing upper lobe. Bilateral lower extremity trace edema, mild erythema. Clear to auscultation. Percussion note normal. Chest symmetrical. HEART: S1, S2, no S3. No murmurs. No cyanosis or clubbing. No ascites. Pulses: Dorsalis pedis and posterior tibial pulses +1 to +2 both sides. ABDOMEN: Soft. Non-tender. Bowel sounds active. No CVA tenderness. No mass felt. EXTREMITIES: No edema. Full range of motion of all extremities, equal. NEUROLOGIC: No focal deficit. Cranial nerves II through XII are grossly intact. No headache. No double vision. SKIN: Not dry. Intact. Turgor-normal. LYMPHATIC: No palpable lymph nodes/no lymphedema. MUSCULOSKELETAL: Normal joints with no swelling. Muscle tone is normal. LAB REVIEW: 10/11/20 04:39 10/11/20 04:39 10/11/20 04:39: Sodium 134.2 L, Potassium 4.59, Chloride 97.5 L, Carbon Dioxide 26.6, Anion Gap 14.69, BUN 23.2 H, Creatinine 1.28 H, Estimated GFR (MDRD) 54.00, BUN/Creatinine Ratio 18.12, Glucose 136.0 H, Calcium 9.45 10/11/20 04:39: WBC 3.74 L, RBC 4.73, Hgb 15.0, Hct 43.8, MCV 92.6, MCH 31.7 H, MCHC 34.2, RDW Coeff of Bhaskar 12.3, Plt Count 184, Immature Gran % (Auto) 0.3, Neut % (Auto) 75.6 H, Lymph % (Auto) 23.3, [place] % (Auto) 0.8, Eos % (Auto) 0.0, Baso % (Auto) 0.0, Neut # (Auto) 2.8, Lymph # (Auto) 0.9, [place] # (Auto) 0.0 L, Eos # (Auto) 0.0, Baso # (Auto) 0.0, Immature Gran # (Auto) 0.0 10/10/20 14:53: Urine Color Yellow, Urine Clarity Clear, Urine pH 5.5, Ur Specific [place] 1.010, Urine Protein Negative, Urine Glucose (UA) Negative, Urine Ketones Negative, Urine Blood Negative, Urine Nitrite Negative, Urine Bilirubin Negative, Urine Urobilinogen 0.2, Ur Leukocyte Esterase Negative 10/10/20 11:36: Sodium 134.7, Potassium 4.44, Chloride 100.5, Carbon Dioxide 29.1, Anion Gap 9.54, BUN 18.4, Creatinine 1.16 H, Estimated GFR (MDRD) 61.00, BUN/Creatinine Ratio 15.86, Glucose 106.5 H, Calcium 8.81, Magnesium 1.86, Total Bilirubin 0.72, AST 24.9, ALT 18.4, Alkaline Phosphatase 60.1, Total Creatine Kinase 95.8, Troponin I < 0.012, NT-Pro-B Natriuret Pep 95.100, Total Protein 6.62, Albumin 4.02, Globulin 2.60, Albumin/Globulin Ratio 1.54, TSH 1.960 10/10/20 11:36: WBC 6.45, RBC 4.30 L, Hgb 14.0, Hct 40.5 L, MCV 94.2 H, MCH 32.6 H, MCHC 34.6, RDW Coeff of Bhaskar 12.7, Plt Count 164, Immature Gran % (Auto) 0.3, Neut % (Auto) 57.4, Lymph % (Auto) 25.3, [place] % (Auto) 10.5 H, Eos % (Auto) 6.2, Baso % (Auto) 0.3, Neut # (Auto) 3.7, Lymph # (Auto) 1.6, [place] # (Auto) 0.7, Eos # (Auto) 0.4, Baso # (Auto) 0.0, Immature Gran # (Auto) 0.0 10/10/20 11:21: Puncture Site R rad, Base Excess -0.4, O2 Saturation 98.8 H, ABG pH 7.44, ABG pCO2 35.0, ABG pO2 119.0 H, ABG HCO3 23.8, ABG Total CO2 24.9 H, Albino Test +, Hemoglobin 1.6 H, Oxyhemoglobin 94.1 L, Carboxyhemoglobin 3.7 H, Total Hemoglobin 14.9, O2 Delivery Device Nc, Oxygen Liter Flow 4.00 10/10/20 10:40: Adenovirus (PCR) Not detected, B. pertussis DNA (PCR) Not detected, B.parapertussis DNA PCR Not detected, C. pneumoniae DNA (PCR) Not detected, Coronavirus OC43 (PCR) Not detected, Coronavirus HKU1 (PCR) Not detected, Coronavirus 229E (PCR) Not detected, Coronavirus NL63 (PCR) Not detected, Human Metapneumovir PCR Not detected, Influenza Type A (PCR) Not detected, Influenza B (RT-PCR) Not detected, M. pneumoniae (PCR) Not detected, Parainfluenza 1 (PCR) Not detected, Parainfluenza 2 (PCR) Not detected, Parainfluenza 3 (PCR) Not detected, Parainfluenza 4 (PCR) Not detected, RSV (PCR) Not detected, Entero/Rhino (PCR) Not detected, SARS-CoV-2 (PCR) Not detected ASSESSMENT: Please see below. 1. Acute COPD exacerbation 2. Leg edema with possible cellulitis 3. Chronic kidney disease stage 2 4. Hypertension PLAN: 1. Continue IV antibiotics and steroids 2. Keep legs elevated 3. Venous Doppler bilateral lower extremities. SCRIBED BY: Valentin VELEZ scribed while in presence of service performed by Dr. Schulte/Debbie Garcia APRN on 10/11/20 ([id number])
--- NOTE | 2020-10-11 12:32 | US ---
EXAM: Ultrasound venous Doppler duplex bilateral lower extremity. HISTORY: Bilateral lower extremity swelling COMPARISON: None. FINDINGS: Color and doppler analysis of the right and left lower extremity shows no echogenic throm bus in the common femoral, superficial femoral or popliteal veins. There is compressibility of the d eep venous system. Normal color Doppler flow and phasic spectral Doppler waveforms are seen. Approp riate response is seen to augmentation. Subcutaneous swelling is present involving both calves. IMPRESSION: No deep venous thrombosis is seen in the right or left lower extremity.
--- NOTE | 2020-10-11 13:36 | PN ---
DATE OF SERVICE: 10/10/20 - ADMIT NOTE SUBJECTIVE: The patient was seen and examined in the emergency room. History and Physical was done with nurse practitioner. The patient has come to the emergency room with complaint of being short of breath with cough and congestion, coughing up yellowish sputum. The patient has exacerbation of COPD. Labs are acceptable. The patient's face is swollen, 1+ to +2 pitting edema dependent. No evidence of CHF noted clinically. EKG rhythm, no acute changes. Chest x-ray report pending. ASSESSMENT: 1. ACUTE EXACERBATION OF COPD WITH HISTORY OF CORONARY ARTERY DISEASE. 2. SEVERE CHRONIC LUNG DISEASE ON HOME OXYGEN. PLAN: 1. Admit the patient with steroids, nebs, antibiotics, Rocephin and Zithromax combination. 2. The patient will be given IV Lasix one time with leg elevation. 3. Routine telemetry orders to rule out any acute myocardial event. CONDITION: Otherwise stable. TIME SPENT: More than 30 minutes. Plan and coordination of the patient's care discussed in the presence of nurse. NITIN
--- NOTE | 2020-10-11 14:39 | HP ---
DATE OF SERVICE: 10/10/20 HISTORY OF PRESENT ILLNESS: 79-year-old white male who presents to the emergency room complaining of shortness of breath and leg edema. 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 Oconnor Hyperglycemia Right sciatica LVH Chronic kidney disease, Stage 2 to 3 PAST SURGICAL HISTORY: Includes cardiac stent placement 1999 Bilateral cataract extraction 2014 REVIEW OF SYSTEMS: CONSTITUTIONAL: No night sweats. No fatigue, malaise, lethargy. No fever or chills. HEENT: Eyes: No visual changes. No eye pain. No eye discharge. ENT: No runny nose. No epistaxis. No sinus pain. No sore throat. No odynophagia. No ear pain. No congestion. RESPIRATORY: Shortness of breath and cough. No hemoptysis. CARDIOVASCULAR: No angina symptoms. No CHF symptoms. No atypical chest pain for CAD. No palpitations. No PND. No orthopnea. GASTROINTESTINAL: No abdominal pain. No nausea or vomiting. No diarrhea or constipation. No hematemesis. No hematochezia. GENITOURINARY: No urgency. No frequency. No dysuria. No hematuria. No obstructive symptoms. No discharge. No pain. No significant abnormal bleeding. MUSCULOSKELETAL: Positive for leg edema. No musculoskeletal pain. No joint swelling. No arthritis. NEUROLOGICAL: No headache. No neck pain. No syncope. No seizures. No dizziness. PSYCHIATRIC: Not anxious. No depression. No suicidal thoughts. No homicidal thoughts. SKIN: No rash. No lesions. No wounds. ENDOCRINE: No unexplained weight loss. No weight gain. HEMATOLOGIC/LYMPHATIC: No anemia. No purpura. No petechiae. No prolonged or excessive bleeding. No palpable lymph nodes. PERSONAL/FAMILY/SOCIAL HISTORY: He is , lives at home by himself. Former smoker. No alcohol or ilicit drug use. MEDICATIONS: Aspirin 81 mg p.o. bedtime Escitalopram 10 mg p.o. daily Tamsulosin 0.8 mg p.o. bedtime Stiolto Respimat 2 puff INH daily Albuterol Sulfate 2 puff INH q.4-6h p.r.n. Pantoprazole 40 mg p.o. daily Albuterol Sulfate one vial neb t.i.d. Amlodipine 5 mg p.o. b.i.d. Budesonide 0.5 mg inh daily Polyethylene glycol 17 gm p.o. daily Guaifenesin 600 mg p.o. b.i.d. Alprazolam 0.5 mg p.o. b.i.d. Losartan 100 mg p.o. daily Carvedilol 6.25 mg p.o. b.i.d. Furosemide 20 mg p.o. daily Minoxidil 5 mg p.o. b.i.d. Potassium Chloride 10 mEq p.o. daily Clonidine 0.1 mg p.o. t.i.d. Losartan 100 mg p.o. daily ALLERGIES: LEVOFLOXACIN PHYSICAL EXAMINATION: VITAL SIGNS: Temperature 97.2, heart rate 79, respirations 28, blood pressure 128/67, pulse ox 96%. HEENT: Head normocephalic, atraumatic. Eyes: Extraocular muscles are intact. Pupils are equal, round and reactive to light and accommodation. Ears: No lesions. Nose appeared normal. Throat: No exudate or erythema. NECK: Supple. No JVD, no carotid bruit. No lymphadenopathy or thyromegaly. LUNGS: Diminished breath sounds with bilateral inspiratory and expiratory wheezing. Clear to auscultation. Percussion note normal. Chest symmetrical. HEART: S1, S2, no S3. No murmur. No cyanosis or clubbing. No ascites. Pulses: Dorsalis pedis and posterior tibial pulses +1 to +2 bilaterally. ABDOMEN: Soft. Nontender. Bowel sounds active. No CVA tenderness. No mass felt. EXTREMITIES: +2 bilateral leg edema with mild erythema up to the knee. Full range of motion of all extremities, equal. NEUROLOGIC: No focal deficit. Cranial nerves II through XII are grossly intact. No headache, no double vision or headache. SKIN: Not dry. Intact. Turgor - normal. LYMPHATIC: No palpable lymph nodes/no lymphedema. MUSCULOSKELETAL: Normal joints with no swelling. Muscle tone is normal. White count 6.45, hemoglobin 14, hematocrit 40.5, platelets 164. ABG on 4L which he is on at home. 02 sat 98, pH 7.44, pc02 35, p02 119. Bicarb 23.8. Respiratory panel by PCR is negative. Sodium 134, potassium 4.4, BUN 18, creatinine 1.16, AST 24, ALT 18.4, alkaline phosphatase 60, troponin less than 0.012. NT-Pro-BNP 95. Chest x-ray shows right middle lobe atelectasis or pneumonia, followup recommended. ASSESSMENT: 1. ACUTE COPD EXACERBATION 2. CHRONIC RESPIRATORY FAILURE 3. BILATERAL LEG EDEMA WITH POSSIBLE CELLULITIS PLAN: 1. We will admit. 2. Routine telemetry orders. 3. CBC, CMP daily. 4. Rocephin 1 gm IV daily. 5. Zithromax 500 mg p.o. daily for 3 days. 6. Solu-Cortef 125 mg IV q.8hrs. 7. Pulmicort 1 mg neb b.i.d. 8. Albuterol neb t.i.d. BANDAR 9. Keep legs elevated. 10. The patient will receive 40 mg IV Lasix in the ER. 11. Regular diet. 12. Turn oxygen down to 3 to 3.5L. 13. Will repeat ABGs in the morning. 14. Regular diet. 15. Will follow closely. TIME SPENT: More than 70 minutes. MTDD
[2020-10-11] MEDS: ASPIRIN EC PO SCH (20:43)
[2020-10-11] MEDS: FLOMAX PO SCH (20:44)
[2020-10-12 04:55] LABS: ABG O2 HGB 84.7 % (95-100); ABG PH 7.37 (7.35-7.45); BEecf 1.3 (-2.0-3.0); COHb 2.9 (0.5-1.5); HCO3 26.6 (21-28); MetHb 0.9 (0-1.5); sO2 84.5 % (94-98); tHb 12.7 g/dl (11.7-17.4)
[2020-10-12] MEDS: ALBUTEROL 0.083% NEB NEB SCH ×3 (04:55→20:10)
[2020-10-12] MEDS: PULMICORT 0.5 MG/2 ML NEB SCH ×2 (04:55→20:10)
[2020-10-12 05:13] LABS: HEMATOCRIT 37.6 % (42.0-52.0); HEMOGLOBIN 13.2 g/dl (14.0-18.0); IMMATURE GRANULOCYTE % (AUTO) 0.4 % (0.0-5.0); LYMPHOCYTES # (AUTO) 1.1 K/uL (0.60-3.4); LYMPHOCYTES % (AUTO) 12.6 (10.0-50.0); MEAN CORPUSCULAR HEMOGLOBIN 32.3 pg (27.0-31.0); MEAN CORPUSCULAR HGB CONC 35.1 (31.8-35.4); MEAN CORPUSCULAR VOLUME 91.9 fl (80.0-94.0); MONOCYTES # (AUTO) 0.3 K/uL (0.4-2.0); NEUTROPHILS # (AUTO) 7.6 K/ul (2.0-6.9); PLATELET COUNT 168 10^3/uL (140-440); RDW COEFFICIENT OF VARIATION 12.7 % (11.6-14.8); RED BLOOD COUNT 4.09 10^6/ul (4.70-6.10); WHITE BLOOD COUNT 8.99 K/ul (4.2-10.2)
[2020-10-12 05:23] LABS: BLOOD UREA NITROGEN 40.6 mg/dL (9-20); CARBON DIOXIDE 25.7 mmol/L (22-30.0); CHLORIDE 97.3 mmol/L (98-107); CREATININE 1.61 mg/dL (0.60-1.10); GLUCOSE 136.5 mg/dL (74-106); POTASSIUM 4.54 mmol/L (3.5-5.1); SODIUM 131.2 mmol/L (134.5-145)
[2020-10-12] MEDS: SOLU-MEDROL 125 MG IVP SCH ×3 (05:50→21:02)
[2020-10-12] MEDS: PROTONIX PO SCH (05:51)
[2020-10-12] MEDS: LASIX TAB PO SCH (05:51)
[2020-10-12] MEDS ORDERED: SIMETHICONE 80 MG PO PRN (07:56)
[2020-10-12] MEDS ORDERED: MYLICON PO PRN (08:05)
[2020-10-12] MEDS ORDERED: ARTIFICIAL TEARS DROPS OP PRN (08:06)
[2020-10-12 08:25] LABS: ABG O2 HGB 91.9 % (95-100); ABG PH 7.43 (7.35-7.45); BEecf 1.6 (-2.0-3.0); COHb 3.3 (0.5-1.5); HCO3 25.9 (21-28); MetHb 1.2 (0-1.5); TCO2 27.1 (19-24); sO2 93.3 % (94-98); tHb 13.8 g/dl (11.7-17.4)
[2020-10-12] MEDS ORDERED: ARTIFICIAL TEARS DROPS EACHEYE PRN (08:30)
[2020-10-12] MEDS: ROCEPHIN 1 GM/50 ML D5W 1 GM/50 ML BAG IV SCH (09:02)
[2020-10-12] MEDS: MIRALAX PO SCH (09:02)
[2020-10-12] MEDS: COZAAR PO SCH (09:03)
[2020-10-12] MEDS: ANORO ELLIPTA 62.5-25 MCG INH IH SCH (09:03)
[2020-10-12] MEDS: ZITHROMAX PO SCH (09:03)
[2020-10-12] MEDS: CATAPRES PO SCH ×3 (09:03→21:03)
[2020-10-12] MEDS: MICRO-K CAP PO SCH (09:03)
[2020-10-12] MEDS: COREG PO SCH ×2 (09:04→17:17)
[2020-10-12] MEDS: NORVASC PO SCH ×2 (09:04→21:05)
[2020-10-12] MEDS: XANAX PO SCH ×2 (09:04→21:05)
[2020-10-12] MEDS: LEXAPRO PO SCH (09:04)
[2020-10-12] MEDS: MUCINEX PO SCH ×2 (09:04→21:02)
[2020-10-12] MEDS: MINOXIDIL PO SCH ×2 (09:04→21:04)
[2020-10-12] MEDS: ASPIRIN EC PO SCH (21:03)
[2020-10-12] MEDS: FLOMAX PO SCH (21:04)
[2020-10-13] MEDS: ALBUTEROL 0.083% NEB NEB SCH ×3 (04:45→20:15)
[2020-10-13] MEDS: PULMICORT 0.5 MG/2 ML NEB SCH ×2 (04:45→20:15)
[2020-10-13 05:03] LABS: BASOPHILS % (AUTO) 0.1 % (0.0-3.0); HEMATOCRIT 37.5 % (42.0-52.0); IMMATURE GRANULOCYTE # (AUTO) 0.1 (0.0-1.0); IMMATURE GRANULOCYTE % (AUTO) 0.6 % (0.0-5.0); LYMPHOCYTES # (AUTO) 0.9 K/uL (0.60-3.4); LYMPHOCYTES % (AUTO) 11.1 (10.0-50.0); MEAN CORPUSCULAR HEMOGLOBIN 31.9 pg (27.0-31.0); MEAN CORPUSCULAR HGB CONC 34.7 (31.8-35.4); MEAN CORPUSCULAR VOLUME 92.1 fl (80.0-94.0); MONOCYTES # (AUTO) 0.3 K/uL (0.4-2.0); MONOCYTES % (AUTO) 3.2 (0-10); NEUTROPHILS # (AUTO) 7.2 K/ul (2.0-6.9); PLATELET COUNT 174 10^3/uL (140-440); RDW COEFFICIENT OF VARIATION 12.9 % (11.6-14.8); RED BLOOD COUNT 4.07 10^6/ul (4.70-6.10)
[2020-10-13 05:18] LABS: ALBUMIN 3.75 g/dL (3.5-5.0); ASPARTATE AMINO TRANSFERASE 27.1 U/L (17-59); BILIRUBIN,TOTAL 0.39 mg/dL (0.2-1.3); BLOOD UREA NITROGEN 50.3 mg/dL (9-20); CALCIUM 8.9 mg/dL (8.4-10.2); CHLORIDE 98.4 mmol/L (98-107); CREATININE 1.78 mg/dL (0.60-1.10); GLUCOSE 126.7 mg/dL (74-106); POTASSIUM 4.79 mmol/L (3.5-5.1); SODIUM 130.8 mmol/L (134.5-145); TOTAL PROTEIN 6.1 g/dL (6.3-8.2)
[2020-10-13] MEDS: SOLU-MEDROL 125 MG IVP SCH ×3 (05:28→21:13)
[2020-10-13] MEDS: LASIX TAB PO SCH (05:29)
[2020-10-13] MEDS: PROTONIX PO SCH (05:29)
[2020-10-13] MEDS: MIRALAX PO SCH (08:46)
[2020-10-13] MEDS: COREG PO SCH ×2 (08:46→17:03)
[2020-10-13] MEDS: LEXAPRO PO SCH (08:47)
[2020-10-13] MEDS: MINOXIDIL PO SCH ×2 (08:47→21:13)
[2020-10-13] MEDS: COZAAR PO SCH (08:47)
[2020-10-13] MEDS: CATAPRES PO SCH ×3 (08:47→21:13)
[2020-10-13] MEDS: XANAX PO SCH ×2 (08:48→21:14)
[2020-10-13] MEDS: NORVASC PO SCH ×2 (08:48→21:14)
[2020-10-13] MEDS: MICRO-K CAP PO SCH (08:48)
[2020-10-13] MEDS: MUCINEX PO SCH ×2 (08:59→21:13)
[2020-10-13] MEDS: ROCEPHIN 1 GM/50 ML D5W 1 GM/50 ML BAG IV SCH (08:59)
[2020-10-13] MEDS: ANORO ELLIPTA 62.5-25 MCG INH IH SCH (08:59)
[2020-10-13] MEDS ORDERED: SODIUM CHLORIDE 1,000 ML IV SCH (09:00)
[2020-10-13 09:32] LABS: ABG O2 HGB 90.9 % (95-100); ABG PH 7.41 (7.35-7.45); BEecf 4.6 (-2.0-3.0); COHb 2.9 (0.5-1.5); HCO3 29.2 (21-28); MetHb 1.3 (0-1.5); TCO2 30.6 (19-24); sO2 92.3 % (94-98); tHb 14.2 g/dl (11.7-17.4)
--- NOTE | 2020-10-13 09:37 | PCM.PROG ---
Attending Provider: ATTENDING PROVIDER: Dr. HAILEY SCHULTE This patient is seen with Debbie Garcia, Nurse Practitioner. DATE OF SERVICE: 10/13/20 SUBJECTIVE: This 80 year old /WHITE M was hospitalized 10/10/20. The patient is resting comfortably. Still complaining of shortness of breath with exertion. It has improved. Still working with getting proper fit with Trilogy and face mask. REVIEW OF SYSTEMS: CONSTITUTIONAL: No night sweats. No fatigue, malaise, lethargy. No fever or chills. HEENT: Eyes: No visual changes. No eye pain. No eye discharge. ENT: No runny nose. No epistaxis. No sinus pain. No odynophagia. No congestion. RESPIRATORY: Cough, no congestion. No hemoptysis. Shortness of breath. CARDIOVASCULAR: No angina symptoms. No CHF symptoms. No atypical chest pain for CAD. No palpitations. No orthopnea.. GASTROINTESTINAL: No abdominal pain. No nausea or vomiting. No diarrhea or constipation. No hematemesis. No hematochezia. GENITOURINARY: No urgency. No frequency. No dysuria. No hematuria. No obstructive symptoms. No discharge. No pain. No significant abnormal bleeding. MUSCULOSKELETAL: No musculoskeletal pain; no joint swelling. NEUROLOGICAL: Awake, alert, oriented to time, place and person. No headache. No neck pain. No syncope. No seizures. No dizziness. PSYCHIATRIC: Not anxious. No depression. No suicidal thoughts. No homicidal thoughts. SKIN: No rash. No lesions. No wounds. ENDOCRINE: No unexplained weight loss. No weight gain. HEMATOLOGIC/LYMPHATIC: No anemia. No purpura. No petechiae. No prolonged or excessive bleeding. No palpable lymph nodes. PHYSICAL EXAMINATION: GENERAL: The patient is awake, alert and oriented, lying in bed in no distress. VITAL SIGNS: Temperature 97.6 F, Pulse 70, Respiratory Rate 18, BP 119/63, Pulse Ox 95% HEENT: Head normocephalic, atraumatic. Eyes: Extraocular muscles are intact. Pupils are equal, round and reactive to light and accommodation. Ears: No lesions. Nose appeared normal. Throat: No exudate or erythema. NECK: Supple. No JVD, no carotid bruit. No lymphadenopathy or thyromegaly. LUNGS: Diminished breath sounds. Bilateral inspiratory and expiratory wheezing. Clear to auscultation. Percussion note normal. Chest symmetrical. HEART: S1, S2, no S3. No murmurs. No cyanosis or clubbing. No ascites. Pulses: Dorsalis pedis and posterior tibial pulses +1 to +2 both sides. ABDOMEN: Soft. Non-tender. Bowel sounds active. No CVA tenderness. No mass felt. EXTREMITIES: No edema. Full range of motion of all extremities, equal. NEUROLOGIC: No focal deficit. Cranial nerves II through XII are grossly intact. No headache. No double vision. SKIN: Not dry. Intact. Turgor-normal. LYMPHATIC: No palpable lymph nodes/no lymphedema. MUSCULOSKELETAL: Normal joints with no swelling. Muscle tone is normal. LAB REVIEW: 10/13/20 04:37 10/13/20 04:37 10/13/20 04:37: Sodium 130.8 L, Potassium 4.79, Chloride 98.4, Carbon Dioxide 26.0, Anion Gap 11.19, BUN 50.3 H, Creatinine 1.78 H, Estimated GFR (MDRD) 37.00, BUN/Creatinine Ratio 28.25, Glucose 126.7 H, Calcium 8.90, Total Bilirubin 0.39, AST 27.1, ALT 18.0, Alkaline Phosphatase 44.0 L, Total Protein 6.10 L, Albumin 3.75, Globulin 2.35, Albumin/Globulin Ratio 1.59 10/13/20 04:37: WBC 8.50, RBC 4.07 L, Hgb 13.0 L, Hct 37.5 L, MCV 92.1, MCH 31.9 H, MCHC 34.7, RDW Coeff of Bhaskar 12.9, Plt Count 174, Immature Gran % (Auto) 0.6, Neut % (Auto) 85.0 H, Lymph % (Auto) 11.1, [place] % (Auto) 3.2, Eos % (Auto) 0.0, Baso % (Auto) 0.1, Neut # (Auto) 7.2 H, Lymph # (Auto) 0.9, [place] # (Auto) 0.3 L, Eos # (Auto) 0.0, Baso # (Auto) 0.0, Immature Gran # (Auto) 0.1 10/12/20 08:14: Puncture Site R rad, Base Excess 1.6, O2 Saturation 93.3 L, ABG pH 7.43, ABG pCO2 39.0, ABG pO2 66.0 L, ABG HCO3 25.9, ABG Total CO2 27.1 H, Albino Test Yes, Hemoglobin 1.2, Oxyhemoglobin 91.9 L, Carboxyhemoglobin 3.3 H, Total Hemoglobin 13.8, O2 Delivery Device Cannula, Oxygen Liter Flow 4.00 ASSESSMENT: Please see below. 1. Acute respiratory failure 2. Acute COPD exacerbation 3. Renal Azotemia 4. Chronic anemia. PLAN: 1. 1 bag of normal saline 100cc 2. Hold PO Lasix tomorrow 3. Repeat ABG on 4 liters Plan and coordination of the patient's care discussed in the presence of Applications Architect and nurse. SCRIBED BY: Valentin VELEZ scribed while in presence of service performed by Dr. Schulte/Debbie Garcia APRN on 10/13/20 ([id number])
--- NOTE | 2020-10-13 11:08 | PN ---
DATE OF SERVICE: 10/11/2020 SUBJECTIVE: The patient was seen and examined this morning. The patient's condition has improved remarkably. His swelling of the face has practically gone along with the leg edema. He is now maybe trace to +1. Wrinkles in the leg skin noted. Breathing a lot better according to him. Coughing much less. Saturation is more than 97% on 2 liters. Cardiovascular status is stable. No evidence of CHF or coronary insufficiency. TIME SPENT: More than 30 minutes. Plan and coordination of the patient's care discussed in the presence of nurse. NITIN
--- NOTE | 2020-10-13 11:12 | PN ---
DATE OF SERVICE: 10/12/2020 SUBJECTIVE: The patient was seen and examined this morning. 80 year old white male hospitalized with COPD exacerbation. The patient is looking a lot better. His face swelling has practically subsided. Leg swelling is almost subsided with practically no swelling noted. Daughter is present in the room and she is very happy with the patient's progress. REVIEW OF SYSTEMS: CONSTITUTIONAL: No night sweats. No fatigue, malaise, lethargy. No fever or chills. HEENT: Eyes: No visual changes. No eye pain. No eye discharge. ENT: No runny nose. No epistaxis. No sinus pain. No sore throat. No odynophagia. No congestion. RESPIRATORY: No cough, no congestion. No hemoptysis. No shortness of breath. CARDIOVASCULAR: No angina symptoms. No CHF symptoms. No atypical chest pain for CAD. No palpitations. No PND. No orthopnea. GASTROINTESTINAL: No abdominal pain. No nausea or vomiting. No diarrhea or constipation. No hematemesis. No hematochezia. GENITOURINARY: No urgency. No frequency. No dysuria. No hematuria. No obstructive symptoms. No discharge. No pain. No significant abnormal bleeding. MUSCULOSKELETAL: No musculoskeletal pain; no joint swelling. NEUROLOGICAL: No headache. No neck pain. No syncope. No seizures. No dizziness. PSYCHIATRIC: Not anxious. No depression. No suicidal thoughts. No homicidal thoughts. SKIN: No rash. No lesions. No wounds. ENDOCRINE: No unexplained weight loss. No weight gain. HEMATOLOGIC/LYMPHATIC: No anemia. No purpura. No petechiae. No prolonged or excessive bleeding. No palpable lymph nodes. PHYSICAL EXAMINATION: VITAL SIGNS: Temperature 97.5, pulse 80, respiratory rate 20, blood pressure 117/60 and pulse ox 95%. HEENT: Head normocephalic, atraumatic. Eyes: Extraocular muscles are intact. Pupils are equal, round and reactive to light and accommodation. Ears: No lesions. Nose appeared normal. Throat: No exudate or erythema. NECK: Supple. No JVD, no carotid bruit. No lymphadenopathy or thyromegaly. LUNGS: Decreased breath sounds but clear to auscultation. Percussion note normal. Chest symmetrical. HEART: S1, S2, no S3. No murmurs. No cyanosis or clubbing. No ascites. Pulses: Dorsalis pedis and posterior tibial pulses +1 to +2 bilaterally. ABDOMEN: Soft. Nontender. Bowel sounds active. No CVA tenderness. No mass felt. EXTREMITIES: No edema. Full range of motion of all extremities, equal. NEUROLOGIC: No focal deficit. Cranial nerves II through XII are grossly intact. No headache. No double vision. SKIN: Not dry. Intact. Turgor - normal. LYMPHATIC: No palpable lymph nodes/no lymphedema. MUSCULOSKELETAL: Normal joints with no swelling. Muscle tone is normal. LABS: Hgb 13.2, hct 37, WBC 8,900 normal differential, creatinine 1.6, BUN 40, potassium 4.5. This morning the patient's blood gasses were not taken at the time when he is on oxygen. He was fumbling with his BIPAP. The patient's second blood gasses showed remarkable improvement. BIPAP was hooked up properly in the morning when the initial blood gasses were taken. ASSESSMENT: 1. COPD exacerbation with leg edema seems to be under control PLAN: 1. Continue steroids, NEBS and antibiotics 2. The patient has coronary artery disease and chronic kidney disease. TIME SPENT: More than 30 minutes. Plan and coordination of the patient's care discussed in the presence of nurse. NITIN
[2020-10-13] MEDS: ASPIRIN EC PO SCH (21:14)
[2020-10-13] MEDS: FLOMAX PO SCH (21:14)
[2020-10-14] MEDS: ALBUTEROL 0.083% NEB NEB SCH ×3 (04:55→20:00)
[2020-10-14] MEDS: PULMICORT 0.5 MG/2 ML NEB SCH ×2 (04:55→20:00)
[2020-10-14 05:25] LABS: HEMOGLOBIN 13.3 g/dl (14.0-18.0); IMMATURE GRANULOCYTE # (AUTO) 0.1 (0.0-1.0); IMMATURE GRANULOCYTE % (AUTO) 0.9 % (0.0-5.0); LYMPHOCYTES # (AUTO) 0.9 K/uL (0.60-3.4); LYMPHOCYTES % (AUTO) 13.5 (10.0-50.0); MEAN CORPUSCULAR HEMOGLOBIN 31.9 pg (27.0-31.0); MEAN CORPUSCULAR HGB CONC 34.1 (31.8-35.4); MEAN CORPUSCULAR VOLUME 93.5 fl (80.0-94.0); MONOCYTES # (AUTO) 0.2 K/uL (0.4-2.0); MONOCYTES % (AUTO) 3.4 (0-10); NEUTROPHILS # (AUTO) 5.3 K/ul (2.0-6.9); NEUTROPHILS % (AUTO) 82.2 % (42.2-75.2); PLATELET COUNT 182 10^3/uL (140-440); RDW COEFFICIENT OF VARIATION 12.9 % (11.6-14.8); RED BLOOD COUNT 4.17 10^6/ul (4.70-6.10); WHITE BLOOD COUNT 6.39 K/ul (4.2-10.2)
[2020-10-14 05:38] LABS: ALANINE AMINOTRANSFERASE 19.2 U/L (0-50); ALBUMIN 3.58 g/dL (3.5-5.0); ALKALINE PHOSPHATASE 43.3 U/L (56-119); ASPARTATE AMINO TRANSFERASE 23.2 U/L (17-59); BILIRUBIN,TOTAL 0.41 mg/dL (0.2-1.3); BLOOD UREA NITROGEN 48.8 mg/dL (9-20); CALCIUM 8.53 mg/dL (8.4-10.2); CARBON DIOXIDE 28.3 mmol/L (22-30.0); CHLORIDE 100.2 mmol/L (98-107); CREATININE 1.48 mg/dL (0.60-1.10); GLUCOSE 128.6 mg/dL (74-106); POTASSIUM 4.62 mmol/L (3.5-5.1); SODIUM 134.5 mmol/L (134.5-145); TOTAL PROTEIN 5.88 g/dL (6.3-8.2)
[2020-10-14] MEDS: PROTONIX PO SCH (05:42)
[2020-10-14] MEDS: SOLU-MEDROL 125 MG IVP SCH (05:42)
[2020-10-14] MEDS: ROCEPHIN 1 GM/50 ML D5W 1 GM/50 ML BAG IV SCH (08:37)
[2020-10-14] MEDS: ANORO ELLIPTA 62.5-25 MCG INH IH SCH (08:38)
[2020-10-14] MEDS: CATAPRES PO SCH ×3 (09:22→20:51)
[2020-10-14] MEDS: MUCINEX PO SCH ×2 (09:23→20:50)
[2020-10-14] MEDS: MINOXIDIL PO SCH ×2 (09:23→20:51)
[2020-10-14] MEDS: MIRALAX PO SCH (09:23)
[2020-10-14] MEDS: NORVASC PO SCH ×2 (09:24→20:51)
[2020-10-14] MEDS: MICRO-K CAP PO SCH (09:24)
[2020-10-14] MEDS: COZAAR PO SCH (09:24)
[2020-10-14] MEDS: XANAX PO SCH ×2 (09:24→20:51)
[2020-10-14] MEDS: LEXAPRO PO SCH (09:24)
[2020-10-14] MEDS: COREG PO SCH ×2 (09:24→17:22)
[2020-10-14] MEDS ORDERED: PREDNISONE PO SCH ×2 (10:30)
[2020-10-14] MEDS: PREDNISONE PO SCH (11:12)
[2020-10-14] MEDS: FLONASE NAS SCH ×2 (11:13→20:51)
--- NOTE | 2020-10-14 11:34 | PCM.PROG ---
Attending Provider: ATTENDING PROVIDER: Dr. HAILEY SCHULTE DATE OF SERVICE: 10/14/20 SUBJECTIVE: This 80 year old /WHITE M was hospitalized 10/10/20 with COPD, acute bronchitis, swollen face and leg edema. The patient's face swelling and leg edema has resolved. Kidney functions were abnormal yesterday with some improvement today with one bag of IV fluid. Appetite normal. REVIEW OF SYSTEMS: CONSTITUTIONAL: No night sweats. No fatigue, malaise, lethargy. No fever or chi lls. HEENT: Eyes: No visual changes. No eye pain. No eye discharge. ENT: No runny nose. No epistaxis. No sinus pain. No odynophagia. No congestion. RESPIRATORY: Coughing much less. No hemoptysis. Less shortness of breath, able to talk without much problem. CARDIOVASCULAR: No angina symptoms. No CHF symptoms. No atypical chest pain for CAD. No palpitations. No orthopnea.. GASTROINTESTINAL: No abdominal pain. No nausea or vomiting. No diarrhea or constipation. No hematemesis. No hematochezia. GENITOURINARY: No urgency. No frequency. No dysuria. No hematuria. No obstructive symptoms. No discharge. No pain. No significant abnormal bleeding. MUSCULOSKELETAL: No musculoskeletal pain; no joint swelling. NEUROLOGICAL: Awake, alert, oriented to time, place and person. No headache. No neck pain. No syncope. No seizures. No dizziness. PSYCHIATRIC: Not anxious. No depression. No suicidal thoughts. No homicidal thoughts. SKIN: No rash. No lesions. No wounds. ENDOCRINE: No unexplained weight loss. No weight gain. HEMATOLOGIC/LYMPHATIC: No anemia. No purpura. No petechiae. No prolonged or exce ssive bleeding. No palpable lymph nodes. PHYSICAL EXAMINATION: GENERAL: The patient is awake, alert and oriented, lying/sitting in bed in no distress. VITAL SIGNS: Temperature 97.7 F, Pulse 69, Respiratory Rate 20, BP 113/65, Pulse Ox 96% HEENT: Facial edema resolved. Head normocephalic, atraumatic. Eyes: Extraocular muscles are intact. Pupils are equal, round and reactive to light and accommodation. Ears: No lesions. Nose appeared normal. Throat: No exudate or erythema. NECK: Supple. No JVD, no carotid bruit. No lymphadenopathy or thyromegaly. LUNGS: Good air entry. Clear to auscultation. Percussion note normal. Chest symmetrical. HEART: S1, S2, no S3. No murmurs. No cyanosis or clubbing. No ascites. Pulses: Dorsalis pedis and posterior tibial pulses +1 to +2 both sides. ABDOMEN: Soft. Non-tender. Bowel sounds active. No CVA tenderness. No mass felt. EXTREMITIES: Leg edema resolved. Full range of motion of all extremities, equal. NEUROLOGIC: No focal deficit. Cranial nerves II through XII are grossly intact. No headache, no double vision or headache. SKIN: Warm and dry. Intact. Turgor-normal. LYMPHATIC: No palpable lymph nodes/no lymphedema. MUSCULOSKELETAL: Normal joints with no swelling. Muscle tone is normal. LAB REVIEW: 10/14/20 04:50 10/14/20 04:50 10/14/20 04:50: Sodium 134.5, Potassium 4.62, Chloride 100.2, Carbon Dioxide 28.3, Anion Gap 10.62, BUN 48.8 H, Creatinine 1.48 H, Estimated GFR (MDRD) 46.00, BUN/Creatinine Ratio 32.97, Glucose 128.6 H, Calcium 8.53, Total Bilirubin 0.41, AST 23.2, ALT 19.2, Alkaline Phosphatase 43.3 L, Total Protein 5.88 L, Albumin 3.58, Globulin 2.30, Albumin/Globulin Ratio 1.55 10/14/20 04:50: WBC 6.39, RBC 4.17 L, Hgb 13.3 L, Hct 39.0 L, MCV 93.5, MCH 31.9 H, MCHC 34.1, RDW Coeff of Bhaskar 12.9, Plt Count 182, Immature Gran % (Auto) 0.9, Neut % (Auto) 82.2 H, Lymph % (Auto) 13.5, [place] % (Auto) 3.4, Eos % (Auto) 0.0, Baso % (Auto) 0.0, Neut # (Auto) 5.3, Lymph # (Auto) 0.9, [place] # (Auto) 0.2 L, Eos # (Auto) 0.0, Baso # (Auto) 0.0, Immature Gran # (Auto) 0.1 ASSESSMENT: Please see below. 1. COPD with acute bronchitis under control. 2. Fluid retention seems to have subsided. 3. Chronic kidney disease with abnormal kidney function shows some improvement with hydration. 4. Cardiovascular status is stable with history of CAD. PLAN: 1. Prednisone 20 mg p.o. daily. 2. Discontinue IV steroids. 3. Flonase one spray each nostril b.i.d. 4. Counseling for nutrition done. 5. Continue antibiotics. Plan and coordination of the patient's care discussed in the presence of Securities Clerk and nurse. CONDITION: Stable SCRIBED BY: BEAR HOLLEY Journeyman Wireman scribed while in presence of service performed by Dr. HAILEY SCHULTE on 10/14/20 ([id number])
[2020-10-14] MEDS: FLOMAX PO SCH (20:51)
[2020-10-14] MEDS: ASPIRIN EC PO SCH (20:51)
[2020-10-15] MEDS: ALBUTEROL 0.083% NEB NEB SCH ×3 (04:50→20:13)
[2020-10-15] MEDS: PULMICORT 0.5 MG/2 ML NEB SCH ×2 (04:50→20:13)
[2020-10-15 05:17] LABS: HEMATOCRIT 39.7 % (42.0-52.0); HEMOGLOBIN 13.9 g/dl (14.0-18.0); IMMATURE GRANULOCYTE # (AUTO) 0.1 (0.0-1.0); IMMATURE GRANULOCYTE % (AUTO) 1.6 % (0.0-5.0); LYMPHOCYTES # (AUTO) 0.9 K/uL (0.60-3.4); LYMPHOCYTES % (AUTO) 13.6 (10.0-50.0); MEAN CORPUSCULAR HEMOGLOBIN 32.3 pg (27.0-31.0); MEAN CORPUSCULAR VOLUME 92.1 fl (80.0-94.0); MONOCYTES # (AUTO) 0.5 K/uL (0.4-2.0); MONOCYTES % (AUTO) 7.7 (0-10); NEUTROPHILS # (AUTO) 5.3 K/ul (2.0-6.9); NEUTROPHILS % (AUTO) 77.1 % (42.2-75.2); PLATELET COUNT 185 10^3/uL (140-440); RED BLOOD COUNT 4.31 10^6/ul (4.70-6.10); WHITE BLOOD COUNT 6.86 K/ul (4.2-10.2)
[2020-10-15 05:41] LABS: ALANINE AMINOTRANSFERASE 19.9 U/L (0-50); ALBUMIN 3.57 g/dL (3.5-5.0); ALKALINE PHOSPHATASE 42.3 U/L (56-119); ASPARTATE AMINO TRANSFERASE 22.3 U/L (17-59); BILIRUBIN,TOTAL 0.57 mg/dL (0.2-1.3); BLOOD UREA NITROGEN 42.5 mg/dL (9-20); CALCIUM 8.7 mg/dL (8.4-10.2); CARBON DIOXIDE 28.5 mmol/L (22-30.0); CHLORIDE 101.8 mmol/L (98-107); CREATININE 1.3 mg/dL (0.60-1.10); GLUCOSE 108.4 mg/dL (74-106); POTASSIUM 4.69 mmol/L (3.5-5.1); SODIUM 134.7 mmol/L (134.5-145); TOTAL PROTEIN 5.78 g/dL (6.3-8.2)
[2020-10-15] MEDS: PROTONIX PO SCH (05:41)
[2020-10-15] MEDS: LASIX TAB PO SCH (05:41)
[2020-10-15] MEDS: MIRALAX PO SCH (09:05)
[2020-10-15] MEDS: MICRO-K CAP PO SCH (09:06)
[2020-10-15] MEDS: XANAX PO SCH ×2 (09:06→20:58)
[2020-10-15] MEDS: LEXAPRO PO SCH (09:06)
[2020-10-15] MEDS: COZAAR PO SCH (09:06)
[2020-10-15] MEDS: CATAPRES PO SCH ×3 (09:06→20:59)
[2020-10-15] MEDS: NORVASC PO SCH ×2 (09:06→20:58)
[2020-10-15] MEDS: COREG PO SCH ×2 (09:06→17:20)
[2020-10-15] MEDS: MINOXIDIL PO SCH ×2 (09:06→20:58)
[2020-10-15] MEDS: PREDNISONE PO SCH (09:06)
[2020-10-15] MEDS: MUCINEX PO SCH ×2 (09:07→20:58)
[2020-10-15] MEDS: FLONASE NAS SCH ×2 (09:07→20:59)
[2020-10-15] MEDS: ANORO ELLIPTA 62.5-25 MCG INH IH SCH (09:07)
[2020-10-15] MEDS: ROCEPHIN 1 GM/50 ML D5W 1 GM/50 ML BAG IV SCH (09:55)
[2020-10-15] MEDS: ASPIRIN EC PO SCH (20:58)
[2020-10-15] MEDS: FLOMAX PO SCH (20:59)
[2020-10-16] MEDS: ALBUTEROL 0.083% NEB NEB SCH ×3 (04:43→19:50)
[2020-10-16] MEDS: PULMICORT 0.5 MG/2 ML NEB SCH ×2 (04:43→19:50)
[2020-10-16 05:22] LABS: BASOPHILS % (AUTO) 0.1 % (0.0-3.0); HEMATOCRIT 40.4 % (42.0-52.0); IMMATURE GRANULOCYTE # (AUTO) 0.1 (0.0-1.0); IMMATURE GRANULOCYTE % (AUTO) 1.7 % (0.0-5.0); LYMPHOCYTES # (AUTO) 1.2 K/uL (0.60-3.4); LYMPHOCYTES % (AUTO) 16.6 (10.0-50.0); MEAN CORPUSCULAR HEMOGLOBIN 32.6 pg (27.0-31.0); MEAN CORPUSCULAR HGB CONC 34.7 (31.8-35.4); MONOCYTES # (AUTO) 0.7 K/uL (0.4-2.0); MONOCYTES % (AUTO) 9.7 (0-10); NEUTROPHILS % (AUTO) 71.9 % (42.2-75.2); PLATELET COUNT 176 10^3/uL (140-440)
[2020-10-16 05:37] LABS: ALANINE AMINOTRANSFERASE 20.4 U/L (0-50); ALBUMIN 3.44 g/dL (3.5-5.0); ALKALINE PHOSPHATASE 40.8 U/L (56-119); ASPARTATE AMINO TRANSFERASE 21.8 U/L (17-59); BILIRUBIN,TOTAL 0.73 mg/dL (0.2-1.3); BLOOD UREA NITROGEN 42.3 mg/dL (9-20); CALCIUM 8.42 mg/dL (8.4-10.2); CHLORIDE 99.9 mmol/L (98-107); CREATININE 1.27 mg/dL (0.60-1.10); GLUCOSE 107.7 mg/dL (74-106); POTASSIUM 4.8 mmol/L (3.5-5.1); SODIUM 132.2 mmol/L (134.5-145); TOTAL PROTEIN 5.64 g/dL (6.3-8.2)
[2020-10-16] MEDS: PROTONIX PO SCH (05:39)
[2020-10-16] MEDS: LASIX TAB PO SCH (05:39)
[2020-10-16] MEDS: ROCEPHIN 1 GM/50 ML D5W 1 GM/50 ML BAG IV SCH (08:54)
[2020-10-16] MEDS: MIRALAX PO SCH (08:54)
[2020-10-16] MEDS: COREG PO SCH ×2 (08:55→17:37)
[2020-10-16] MEDS: LEXAPRO PO SCH (08:55)
[2020-10-16] MEDS: MINOXIDIL PO SCH ×2 (08:55→20:46)
[2020-10-16] MEDS: NORVASC PO SCH (08:56)
[2020-10-16] MEDS: XANAX PO SCH ×2 (08:56→20:46)
[2020-10-16] MEDS: COZAAR PO SCH (08:56)
[2020-10-16] MEDS: MICRO-K CAP PO SCH (08:56)
[2020-10-16] MEDS: MUCINEX PO SCH ×2 (08:56→20:46)
[2020-10-16] MEDS: PREDNISONE PO SCH (08:56)
[2020-10-16] MEDS: CATAPRES PO SCH ×3 (08:56→20:46)
[2020-10-16] MEDS: FLONASE NAS SCH ×2 (08:58→20:47)
[2020-10-16] MEDS: ANORO ELLIPTA 62.5-25 MCG INH IH SCH (08:58)
[2020-10-16] MEDS ORDERED: TORADOL IVP ONE (12:48)
[2020-10-16] MEDS: ASPIRIN EC PO SCH (20:46)
[2020-10-16] MEDS: FLOMAX PO SCH (20:46)
[2020-10-16] MEDS ORDERED: NORVASC PO SCH (21:00)
[2020-10-17] MEDS: PULMICORT 0.5 MG/2 ML NEB SCH (04:46)
[2020-10-17] MEDS: ALBUTEROL 0.083% NEB NEB SCH (04:46)
[2020-10-17 05:14] LABS: BASOPHILS % (AUTO) 0.2 % (0.0-3.0); HEMATOCRIT 39.6 % (42.0-52.0); HEMOGLOBIN 13.7 g/dl (14.0-18.0); IMMATURE GRANULOCYTE # (AUTO) 0.2 (0.0-1.0); LYMPHOCYTES # (AUTO) 1.7 K/uL (0.60-3.4); LYMPHOCYTES % (AUTO) 21.2 (10.0-50.0); MEAN CORPUSCULAR HEMOGLOBIN 32.3 pg (27.0-31.0); MEAN CORPUSCULAR HGB CONC 34.6 (31.8-35.4); MEAN CORPUSCULAR VOLUME 93.4 fl (80.0-94.0); MONOCYTES % (AUTO) 11.8 (0-10); NEUTROPHILS # (AUTO) 5.3 K/ul (2.0-6.9); NEUTROPHILS % (AUTO) 64.8 % (42.2-75.2); PLATELET COUNT 171 10^3/uL (140-440); RDW COEFFICIENT OF VARIATION 12.8 % (11.6-14.8); RED BLOOD COUNT 4.24 10^6/ul (4.70-6.10); WHITE BLOOD COUNT 8.11 K/ul (4.2-10.2)
[2020-10-17 05:22] LABS: ALANINE AMINOTRANSFERASE 20.5 U/L (0-50); ALBUMIN 3.16 g/dL (3.5-5.0); ALKALINE PHOSPHATASE 38.8 U/L (56-119); ASPARTATE AMINO TRANSFERASE 21.1 U/L (17-59); BILIRUBIN,TOTAL 0.6 mg/dL (0.2-1.3); BLOOD UREA NITROGEN 44.9 mg/dL (9-20); CALCIUM 8.31 mg/dL (8.4-10.2); CARBON DIOXIDE 30.8 mmol/L (22-30.0); CHLORIDE 99.6 mmol/L (98-107); CREATININE 1.37 mg/dL (0.60-1.10); GLUCOSE 98.6 mg/dL (74-106); POTASSIUM 4.52 mmol/L (3.5-5.1); SODIUM 133.6 mmol/L (134.5-145); TOTAL PROTEIN 5.22 g/dL (6.3-8.2)
[2020-10-17 05:38] VITALS: BP 151/76; TEMP 97.7
[2020-10-17] MEDS: LASIX TAB PO SCH (06:00)
[2020-10-17] MEDS: PROTONIX PO SCH (06:00)
[2020-10-17] MEDS: MIRALAX PO SCH (09:34)
[2020-10-17] MEDS: XANAX PO SCH (09:35)
[2020-10-17] MEDS: COZAAR PO SCH (09:35)
[2020-10-17] MEDS: COREG PO SCH (09:35)
[2020-10-17] MEDS: CATAPRES PO SCH (09:36)
[2020-10-17] MEDS: MUCINEX PO SCH (09:36)
[2020-10-17] MEDS: PREDNISONE PO SCH (09:36)
[2020-10-17] MEDS: MINOXIDIL PO SCH (09:36)
[2020-10-17] MEDS: MICRO-K CAP PO SCH (09:36)
[2020-10-17] MEDS: LEXAPRO PO SCH (09:37)
[2020-10-17] MEDS: ANORO ELLIPTA 62.5-25 MCG INH IH SCH (09:37)
[2020-10-17] MEDS: FLONASE NAS SCH (09:37)
[2020-10-17] MEDS: ROCEPHIN 1 GM/50 ML D5W 1 GM/50 ML BAG IV SCH (09:38)
--- NOTE | 2020-10-17 11:01 | PCM.PROG ---
Attending Provider: ATTENDING PROVIDER: Dr. HAILEY SCHULTE This patient is seen with Debbie Garcia, Nurse Practitioner. DATE OF SERVICE: 10/17/20 SUBJECTIVE: This 80 year old /WHITE M was hospitalized 10/10/20. Resting comfortably. up and about walking around eating well. Oxygen saturation has be en good. REVIEW OF SYSTEMS: CONSTITUTIONAL: No night sweats. No fatigue, malaise, lethargy. No fever or chills. HEENT: Eyes: No visual changes. No eye pain. No eye discharge. ENT: No runny nose. No epistaxis. No sinus pain. No odynophagia. No congestion. RESPIRATORY: Cough. Shortness of breath. No hemoptysis. CARDIOVASCULAR: No angina symptoms. No CHF symptoms. No atypical chest pain for CAD. No palpitations. No orthopnea.. GASTROINTESTINAL: No abdominal pain. No nausea or vomiting. No diarrhea or constipation. No hematemesis. No hematochezia. GENITOURINARY: No urgency. No frequency. No dysuria. No hematuria. No obstructive symptoms. No discharge. No pain. No significant abnormal bleeding. MUSCULOSKELETAL: No musculoskeletal pain; no joint swelling. NEUROLOGICAL: Awake, alert, oriented to time, place and person. No headache. No neck pain. No syncope. No seizures. No dizziness. PSYCHIATRIC: Not anxious. No depression. No suicidal thoughts. No homicidal tho ughts. SKIN: No rash. No lesions. No wounds. ENDOCRINE: No unexplained weight loss. No weight gain. HEMATOLOGIC/LYMPHATIC: No anemia. No purpura. No petechiae. No prolonged or excessive bleeding. No palpable lymph nodes. PHYSICAL EXAMINATION: GENERAL: The patient is awake, alert and oriented, lying/sitting in bed in no distress. VITAL SIGNS: Temperature 97.7 F, Pulse 64, Respiratory Rate 20, BP 151/76, Pulse Ox 97% HEENT: Head normocephalic, atraumatic. Eyes: Extraocular muscles are intact. Pupils are equal, round and reactive to light and accommodation. Ears: No lesions. Nose appeared normal. Throat: No exudate or erythema. NECK: Supple. No JVD, no carotid bruit. No lymphadenopathy or thyromegaly. LUNGS: Diminished breath sounds. Clear to auscultation. Percussion note normal. Chest symmetrical. HEART: S1, S2, no S3. No murmurs. No cyanosis or clubbing. No ascites. Pulses: Dorsalis pedis and posterior tibial pulses +1 to +2 both sides. ABDOMEN: Soft. Non-tender. Bowel sounds active. No CVA tenderness. No mass felt. EXTREMITIES: No edema. Full range of motion of all extremities, equal. NEUROLOGIC: No focal deficit. Cranial nerves II through XII are grossly intact. No headache. No double vision. SKIN: Not dry. Intact. Turgor-normal. LYMPHATIC: No palpable lymph nodes/no lymphedema. MUSCULOSKELETAL: Normal joints with no swelling. Muscle tone is normal. LAB REVIEW: 10/17/20 04:46 10/17/20 04:46 10/17/20 04:46: Sodium 133.6 L, Potassium 4.52, Chloride 99.6, Carbon Dioxide 30.8 H, Anion Gap 7.72, BUN 44.9 H, Creatinine 1.37 H, Estimated GFR (MDRD) 50.00, BUN/Creatinine Ratio 32.77, Glucose 98.6, Calcium 8.31 L, Total Bilirubin 0.60, AST 21.1, ALT 20.5, Alkaline Phosphatase 38.8 L, Total Protein 5.22 L, Albumin 3.16 L, Globulin 2.06, Albumin/Globulin Ratio 1.53 10/17/20 04:46: WBC 8.11, RBC 4.24 L, Hgb 13.7 L, Hct 39.6 L, MCV 93.4, MCH 32.3 H, MCHC 34.6, RDW Coeff of Bhaskar 12.8, Plt Count 171, Immature Gran % (Auto) 2.0, Neut % (Auto) 64.8, Lymph % (Auto) 21.2, [place] % (Auto) 11.8 H, Eos % (Auto) 0.0, Baso % (Auto) 0.2, Neut # (Auto) 5.3, Lymph # (Auto) 1.7, [place] # (Auto) 1.0, Eos # (Auto) 0.0, Baso # (Auto) 0.0, Immature Gran # (Auto) 0.2 ASSESSMENT: Please see below. 1. Acute COPD exacerbation. 2. Chronic renal failure. 3. Hyponatremia improved. 4. Chronic kidney disease, Stage 2 to 3. PLAN: 1. Omnicef 300 mg b.i.d. times 5 days. 2. Prednisone 20 mg daily times 5 days. 3. Discharge home. Plan and coordination of the patient's care discussed in the presence of Mri Assistant and nurse. CONDITION: Stable SCRIBED BY: Mer[place] TURCIOSist scribed while in presence of service performed by Dr. Schulte/Debbie Garcia APRN on 10/17/20 ([id number])
--- NOTE | 2020-10-17 11:47 | CM.DICTOOL ---
ADMISSION: 10/10/20 12:21 DISCHARGE: OCTOBER 17, 2020 DATE OF SERVICE: 10/17/20 FINAL DIAGNOSIS PNEUMONIA, RML PER CXR COPD EXACERBATION CHRONIC RENAL FAILURE HISTORY: CHRONIC RESPIRATORY FAILURE (OXYGEN DEPENDENT) CHRONIC LUNG DISEASE, SEVERE (OXYGEN DEPENDENT) CHRONIC BRONCHITIS CHRONIC KIDNEY DISEASE, STAGE 2-3 CORONARY ARTERY DISEASE WITH STENT HYPERTENSION PALPITATIONS ANXIETY SECONDARY POLYCYTHEMIA (HISTORY OF THERAPEUTIC PHLEBOTOMY) SLEEP APNEA, USES TRILOGY BENIGN PROSTATIC HYPERTROPHY (DR. QUINTANILLA) HYPERGLYCEMIA RIGHT SCIATICA DEGENERATIVE DISC DISEASE DIVERTICULOSIS PER CTA ABDOMEN (03/2020) CARDIAC STENT APPLICATION, 1999 BILATERAL CATARACT EXTRACTION, 2014 CHOLECYSTECTOMY SKIN CANCER REMOVED FROM NOSE, 10/04/2020 ( [facility]HS PROCEDURE; [facility], DR. NEGRON)) ECHOCARDIOGRAMCOMPLETED 10/17/2020 LAST VITALS Temp Pulse Resp BP Pulse Ox 97.7 F 64 20 151/76 H 97 10/17/20 05:35 10/17/20 05:35 10/17/20 08:00 10/17/20 05:35 10/17/20 10:00 TAKE THESE MEDICATIONS AT HOME Albuterol Sulfate (Albuterol Sulfate (Ventolin Hfa) 18 Gm 1 Puff With Spacer) 2 puff IH Q4-6H PRN PRN Reason: Bronchodialation Albuterol Sulfate (Albuterol Sulfate 0.083% Vial.Neb) 2.5 mg NEB RTTID [facility] Last Admin: 10/17/20 04:46 Dose: 2.5 mg Documented by: Alprazolam (Alprazolam 0.5 Mg Tablet) 0.5 mg PO BID [facility] Last Admin: 10/17/20 09:35 Dose: 0.5 mg Documented by: Amlodipine Besylate (Amlodipine Besylate 5 Mg Tablet) 5 mg PO 2100 BANDAR (DECREASED TO BEDTIME ONLY) Last Admin: 10/16/20 20:49 Dose: 5 mg Documented by: Aspirin (Aspirin 81 Mg Tablet.) 81 mg PO BEDTIME [facility] Last Admin: 10/16/20 20:46 Dose: 81 mg Documented by: Budesonide (Budesonide 0.5 Mg/2 Ml Vial.Neb) 0.5 mg NEB DAILY [facility] Last Admin: 10/17/20 04:46 Dose: 0.5 mg Documented by: Carvedilol (Carvedilol 6.25 Mg Tablet) 6.25 mg PO BIDWM [facility] Last Admin: 10/17/20 09:35 Dose: 6.25 mg Documented by: Clonidine (Clonidine Hcl 0.1 Mg Tablet) 0.1 mg PO TID [facility] Last Admin: 10/17/20 09:36 Dose: 0.1 mg Documented by: Escitalopram Oxalate (Escitalopram Oxalate 10 Mg Tablet) 10 mg PO DAILY [facility] Last Admin: 10/17/20 09:37 Dose: 10 mg Documented by: Fluticasone Propionate (Fluticasone Propionate 16 Gm Nasal [place]) 1 spray MICHAEL BID [facility] (NEW HOSPITAL ISSUE) Last Admin: 10/17/20 09:37 Dose: 1 spray Documented by: Furosemide (Furosemide 20 Mg Tablet) 20 mg PO QDAC [facility] Last Admin: 10/17/20 06:00 Dose: 20 mg Documented by: Guaifenesin (Guaifenesin 600 Mg Tablet.Er) 600 mg PO BID [facility] Last Admin: 10/17/20 09:36 Dose: 600 mg Documented by: Losartan Potassium (Losartan Potassium 100 Mg Tablet) 100 mg PO DAILY [facility] Last Admin: 10/17/20 09:35 Dose: 100 mg Documented by: Minoxidil (Minoxidil 2.5 Mg Tablet) 5 mg PO BID [facility] Last Admin: 10/17/20 09:36 Dose: 5 mg Documented by: Non-Formulary Medication (Simethicone [Simethicone]) 80 mg PO BID PRN PRN Reason: flatulance Non-Formulary Medication (Peg 400-Propylene Glycol [Systane (Propylene Glycol)]) 1 drop EACHEYE 5XD PRN PRN Reason: dry eyes Pantoprazole Sodium (Pantoprazole Sodium 40 Mg Tablet.Dr) 40 mg PO QDAC [facility] Last Admin: 10/17/20 06:00 Dose: 40 mg Documented by: Polyethylene Glycol (Polyethylene Glycol 17 Gm Powd.Pack) 17 gm PO DAILY [facility] Last Admin: 10/17/20 09:34 Dose: 17 gm Documented by: Potassium Chloride (Potassium Chloride 10 Meq Capsule.Er) 10 meq PO DAILYWM [facility] Last Admin: 10/17/20 09:36 Dose: 10 meq Documented by: Prednisone (Prednisone 20 Mg Tablet) 20 mg PO DAILYWM [facility] (NEW RX FOR 5 DAYS) Last Admin: 10/17/20 09:36 Dose: 20 mg Documented by: OMNICEF 300 MG BID [facility] (NEW RX FOR 5 DAYS) LAST ADMIN: Tamsulosin HCl (Tamsulosin Hcl 0.4 Mg Cap.Er.24h) 0.8 mg PO BEDTIME [facility] Last Admin: 10/16/20 20:46 Dose: 0.8 mg Documented by: RAAD RESPIMAT 2 PUFF INHALATION DAILY Documented by: ALLERGIES levofloxacin [From Levaquin] Adverse Reaction (Unknown, Verified 10/10/20 10:23) Unknown DISCONTINUED MEDICATIONS AMLODIPINE 5 MG BID MEDICATION CHANGE: AMLODIPINE 5 MG AT BEDTIME ONLY NEW PRESCRIPTIONS: OMNICEF 300 MG BID FOR 5 DAYS PREDNISONE 20 MG DAILY FOR 5 DAYS CONTINUE USE OF FLONASE 1 SPRAY BID TO EACH NOSTRIL (HOSPITAL ISSUE SENT WITH PATIENT) SMOKING: NOT APPLICABLE DISEASE SPECIFIC EDUCATION: CONTINUE USE OF TRILOGY AT NIGHT WITH FULL FACE MASK CONTINUE TO DO NEB TREATMENTS TID CONTINUE TO USE COMPRESSION VEST AFTER NEBULIZER TREATMENT CONTINUE WOUND CARE TO RIGHT NOSTRIL AND BEHIND RIGHT EAR WITH VINEGAR WATER BID AND FOLLOW WITH DRY DRESSING PRESCRIPTIONS APPOINTMENT LAB REVIEW: 10/17/20 04:46 10/17/20 04:46 10/17/20 04:46: Sodium 133.6 L, Potassium 4.52, Chloride 99.6, Carbon Dioxide 30.8 H, Anion Gap 7.72, BUN 44.9 H, Creatinine 1.37 H, Estimated GFR (MDRD) 50.00, BUN/Creatinine Ratio 32.77, Glucose 98.6, Calcium 8.31 L, Total Bilirubin 0.60, AST 21.1, ALT 20.5, Alkaline Phosphatase 38.8 L, Total Protein 5.22 L, Albumin 3.16 L, Globulin 2.06, Albumin/Globulin Ratio 1.53 10/17/20 04:46: WBC 8.11, RBC 4.24 L, Hgb 13.7 L, Hct 39.6 L, MCV 93.4, MCH 32.3 H, MCHC 34.6, RDW Coeff of Bhaskar 12.8, Plt Count 171, Immature Gran % (Auto) 2.0, Neut % (Auto) 64.8, Lymph % (Auto) 21.2, Bonner % (Auto) 11.8 H, Eos % (Auto) 0.0, Baso % (Auto) 0.2, Neut # (Auto) 5.3, Lymph # (Auto) 1.7, Bonner # (Auto) 1.0, Eos # (Auto) 0.0, Baso # (Auto) 0.0, Immature Gran # (Auto) 0.2 PLAN: DISCHARGE HOME WITH DAUGHTER DIET: HEART HEALTHY ACTIVITY: GRADUALLY RESUME TOLERATED USE OXYGEN AT 4 LITERS CONTINUOUSLY ELEVATE LEGS ABOVE LEVEL OF HIPS WHEN IN BED AND WHEN SITTING AN APPOINTMENT IS SCHEDULED WITH DR. SCHULTE/HERNESTO ANDERSON APRN/KEHINDE HERNANDES APRN ON October AT 1 PM (EXISTING APPOINTMENT ALREADY SCHEDULED) CODE STATUS: DO NOT RESUSCITATE MR. DELGADO IS ALERT AND ORIENTED X 4. HE IS HARD OF HEARING. HE IS INDEPENDENT WITH ACTIVITIES OF DAILY LIVING. HE IS CONTINENT OF BOWEL AND BLADDER. HE IS INDEPENDENT WITH BED MOBILITY AND IS AMBULATORY IN THE ROOM WITH USE OF CONTINUOUS OXYGEN. HE DOES NOT USE AN ASSISTIVE DEVICE WITH AMBULATION. MR. DELGADO HAS A GOOD APPETITE. HE CONSUMES 100% OF HIS MEALS WITHOUT DIFFICULTY. HYDRATION STATUS IS GOOD. SKIN IS INTACT EXCEPT FOR AN AREA TO THE RIGHT NOSTRIL WHERE A SKIN CANCER WAS REMOVED. THERE IS ALSO A WOUND BEHIND THE RIGHT EAR WHERE SKIN WAS REMOVED FROM GRAFTING TO THE RIGHT NOSTRIL. MR. DELGADO LIVES AT HOME. HIS ADULT DAUGHTER LIVES WITH HIM TO ASSIST WITH COOKING AND CLEANING. SHE ALSO PERFORMS WOUND CARE TO HIS NOSE AND BEHIND THE RIGHT EAR INSTRUCTED BY DR. NEGRON, PATIENT NAVIGATOR. MR. DELGADO HAS FOR HIS USE AT HOME CONTINUOUS OXYGEN, NEBULIZER, TRILOGY MACHINE, PULSE OXIMETER, AND BLOOD PRESSURE CUFF. ___ MD HERNESTO CISSE APRN
--- NOTE | 2020-10-17 13:41 | PN ---
DATE OF SERVICE: 10/15/20 SUBJECTIVE: 80-year-old white male hospitalized with COPD with acute bronchitis. The patient has end-stage COPD on home oxygen. Also is on BIPAP. The patient also has history of coronary artery disease. The patient had fluid retention with swollen face and leg edema. The patient is feeling a lot better. REVIEW OF SYSTEMS: CONSTITUTIONAL: No night sweats. No fatigue, malaise, lethargy. No fever or chills. HEENT: Eyes: No visual changes. No eye pain. No eye discharge. ENT: No runny nose. No epistaxis. No sinus pain. No sore throat. No odynophagia. No congestion. RESPIRATORY: No cough. Mild congestion on the left side of the lung. No hemoptysis. No shortness of breath. CARDIOVASCULAR: No angina symptoms. No CHF symptoms. No atypical chest pain for CAD. No palpitations. No PND. No orthopnea. GASTROINTESTINAL: Appetite has improved. No abdominal pain. No nausea or vomiting. No diarrhea or constipation. No hematemesis. No hematochezia. GENITOURINARY: No urgency. No frequency. No dysuria. No hematuria. No obstructive symptoms. No discharge. No pain. No significant abnormal bleeding. MUSCULOSKELETAL: No musculoskeletal pain; no joint swelling. NEUROLOGICAL: No headache. No neck pain. No syncope. No seizures. No dizziness. PSYCHIATRIC: Not anxious. No depression. No suicidal thoughts. No homicidal thoughts. SKIN: No rash. No lesions. No wounds. ENDOCRINE: No unexplained weight loss. No weight gain. HEMATOLOGIC/LYMPHATIC: No anemia. No purpura. No petechiae. No prolonged or excessive bleeding. No palpable lymph nodes. PHYSICAL EXAMINATION: GENERAL: The patient is overall feeling better. VITAL SIGNS: Temperature 98.3, pulse 75, respiratory rate 20, blood pressure 139/75. Pulse ox 92% on 2L. HEENT: Facial swelling has resolved. Head normocephalic, atraumatic. Eyes: Extraocular muscles are intact. Pupils are equal, round and reactive to light and accommodation. Ears: No lesions. Nose appeared normal. Throat: No exudate or erythema. NECK: Supple. No JVD, no carotid bruit. No lymphadenopathy or thyromegaly. LUNGS: Decreased breath sounds. No wheezing. Clear to auscultation. Percussion note normal. Chest symmetrical. HEART: S1, S2, no S3. No murmurs. No cyanosis or clubbing. No ascites. Pulses: Dorsalis pedis and posterior tibial pulses +1 to +2 bilaterally. ABDOMEN: Soft. Nontender. Bowel sounds active. No CVA tenderness. No mass felt. EXTREMITIES: Practically no pedal edema. Full range of motion of all extremities, equal. NEUROLOGIC: No focal deficit. Cranial nerves II through XII are grossly intact. No headache. No double vision. SKIN: Not dry. Intact. Turgor - normal. LYMPHATIC: No palpable lymph nodes/no lymphedema. MUSCULOSKELETAL: Normal joints with no swelling. Muscle tone is normal. LABS: Hemoglobin 13.9, hematocrit 39, WBC 6,800, normal differential. Creatinine 1.3, BUN 42, potassium 4.6. ASSESSMENT: 1. COPD exacerbation with severe chronic lung disease, seems to be under control. 2. Coronary artery disease, stable, no symptoms. 3. CHF, no symptoms. 4. Fluid overload with leg swelling and facial swelling has resolved. 5. Kidney disease seems to be improving with IV fluids and hydration. PLAN: 1. Discontinue telemetry. 2. Also advised the patient to lose at least 10 to 15 pounds. The patient's BMI is close to 30. 3. The patient lives alone and has not been able to take care of himself properly especially with food intact and the quality of food he eats. 4. Advised to restart rehab if possible. 5. The patient was on pulmonary rehab. TIME SPENT: More than 30 minutes. Plan and coordination of the patient's care discussed in the presence of nurse. NITIN
--- NOTE | 2020-10-18 09:49 | PN ---
DATE OF SERVICE: 10/13/2020 SUBJECTIVE: The patient was seen and examined with the Nurse Practitioner. 80 year old white male hospitalized with COPD exacerbation. The patient's condition has improved. His edema of the face has subsided and leg edema has subsided. He is feeling better and appetite has improved. We will monitor kidney function. TIME SPENT: More than 30 minutes. Plan and coordination of the patient's care discussed in the presence of nurse. NITIN
--- NOTE | 2020-10-18 10:38 | PN ---
DATE OF SERVICE: 10/16/2020 SUBJECTIVE: 80 year old white male hospitalized with COPD exacerbation, bronchitis. Cardiovascular status is stable. The patient is feeling better. He still has raw feeling on the left side of the upper part of the chest especially with cough more like a pleuritic type of pain. REVIEW OF SYSTEMS: CONSTITUTIONAL: No night sweats. No fatigue, malaise, lethargy. No fever or chills. HEENT: Eyes: No visual changes. No eye pain. No eye discharge. ENT: No runny nose. No epistaxis. No sinus pain. No sore throat. No odynophagia. No congestion. RESPIRATORY: No cough, no congestion. No hemoptysis. No shortness of breath. CARDIOVASCULAR: No angina symptoms. No CHF symptoms. No atypical chest pain for CAD. No palpitations. No PND. No orthopnea. Pleuritic type of raw feeling on the left upper thoracic cage with coughing. GASTROINTESTINAL: No abdominal pain. No nausea or vomiting. No diarrhea or constipation. No hematemesis. No hematochezia. Appetite seems to have improved. GENITOURINARY: No urgency. No frequency. No dysuria. No hematuria. No obstructive symptoms. No discharge. No pain. No significant abnormal bleeding. MUSCULOSKELETAL: No musculoskeletal pain; no joint swelling. NEUROLOGICAL: No headache. No neck pain. No syncope. No seizures. No dizziness. PSYCHIATRIC: Not anxious. No depression. No suicidal thoughts. No homicidal thoughts. SKIN: No rash. No lesions. No wounds. ENDOCRINE: No unexplained weight loss. No weight gain. HEMATOLOGIC/LYMPHATIC: No anemia. No purpura. No petechiae. No prolonged or excessive bleeding. No palpable lymph nodes. PHYSICAL EXAMINATION: VITAL SIGNS: Temperature 97.8, pulse 66, respiratory rate 22, blood pressure 146/74 and pulse ox 94%. HEENT: Head normocephalic, atraumatic. Eyes: Extraocular muscles are intact. Pupils are equal, round and reactive to light and accommodation. Ears: No lesions. Nose appeared normal. Throat: No exudate or erythema. NECK: Supple. No JVD, no carotid bruit. No lymphadenopathy or thyromegaly. LUNGS: Decreased breath sounds but clear to auscultation. Percussion note normal. Chest symmetrical. HEART: S1, S2, no S3. No murmurs. No cyanosis or clubbing. No ascites. Pulses: Dorsalis pedis and posterior tibial pulses +1 to +2 bilaterally. ABDOMEN: Soft. Nontender. Bowel sounds active. No CVA tenderness. No mass felt. EXTREMITIES: No edema. Full range of motion of all extremities, equal. NEUROLOGIC: No focal deficit. Cranial nerves II through XII are grossly intact. No headache. No double vision. SKIN: Not dry. Intact. Turgor - normal. LYMPHATIC: No palpable lymph nodes/no lymphedema. MUSCULOSKELETAL: Normal joints with no swelling. Muscle tone is normal. LABS: hgb 14, hct 40, WBC 7,000 normal differential, creatinine 1.2, BUN 42, potassium 4.8 ASSESSMENT: 1. COPD exacerbation with bronchitis has been under control 2. Pleuritic type of discomfort. 3. Chronic kidney disease seems to be stable with some component of dehydration PLAN: 1. Toradol IV 30mg one dose 2. Decrease the Amlodipine to 5mg at night because of leg edema. He was on 5mg twice a day. He is on multiple medication like Clonidine, Minoxidil Losartan etc for his blood pressure which is markedly high but has been able to control his blood pressure better. 3. Appetite has improved and advised to increase the food intake. 4. COVID negative. 5. May do an echo before discharge CONDITION: Stablel TIME SPENT: More than 30 minutes. Plan and coordination of the patient's care discussed in the presence of nurse. NITIN
--- NOTE | 2020-10-18 11:29 | DS ---
DATE OF SERVICE: 10/17/20 CODE STATUS: DO NOT RESUSCITATE FINAL DIAGNOSIS: 1. PNEUMONIA, RIGHT MIDDLE LOBE PER CXR 2. COPD EXACERBATION 3. CHRONIC RENAL FAILURE HISTORY: 4. CHRONIC RESPIRATORY FAILURE (OXYGEN DEPENDENT) 5. CHRONIC LUNG DISEASE, SEVERE (OXYGEN DEPENDENT) 6. CHRONIC BRONCHITIS 7. CHRONIC KIDNEY DISEASE, STAGE 2-3 8. CORONARY ARTERY DISEASE WITH STENT 9. HYPERTENSION 10. PALPITATIONS 11. ANXIETY 12. SECONDARY POLYCYTHEMIA (HISTORY OF THERAPEUTIC PHLEBOTOMY) 13. SLEEP APNEA, USES TRILOGY 14. BENIGN PROSTATIC HYPERTROPHY (DR. QUINTANILLA) 15. HYPERGLYCEMIA 16. RIGHT SCIATICA 17. DEGENERATIVE DISC DISEASE 18. DIVERTICULOSIS PER CTA ABDOMEN (03/2020) 19. CARDIAC STENT APPLICATION, 1999 20. BILATERAL CATARACT EXTRACTION, 2014 21. CHOLECYSTECTOMY 22. SKIN CANCER REMOVED FROM NOSE, 10/04/2020([facility] PROCEDURE; [facility], DR. NEGRON) 23. ECHOCARDIOGRAMCOMPLETED 10/17/2020 DISCHARGE INSTRUCTIONS: 1. DISCHARGE HOME WITH DAUGHTER 2. AN APPOINTMENT IS SCHEDULED WITH DR. SCHULTE/HERNESTO ANDERSON APRN/KEHINDE HERNANDES APRN ON October AT 1 PM (EXISTING APPOINTMENT ALREADY SCHEDULED) 3. USE OXYGEN AT 4 LITERS CONTINUOUSLY 4. ELEVATE LEGS ABOVE LEVEL OF HIPS WHEN IN BED AND WHEN SITTING MEDICATIONS AT DISCHARGE: Albuterol Sulfate (Albuterol Sulfate (Ventolin Hfa) 18 Gm 1 Puff With Spacer) 2 puff IH Q4-6H PRN PRN Reason: Bronchodialation Albuterol Sulfate (Albuterol Sulfate 0.083% Vial.Neb) 2.5 mg NEB RTTID [facility] Last Admin: 10/17/20 04:46 Dose: 2.5 mg Documented by: Alprazolam (Alprazolam 0.5 Mg Tablet) 0.5 mg PO BID [facility] Last Admin: 10/17/20 09:35 Dose: 0.5 mg Documented by: Amlodipine Besylate (Amlodipine Besylate 5 Mg Tablet) 5 mg PO 2100 BANDAR (DECREASED TO BEDTIME ONLY) Last Admin: 10/16/20 20:49 Dose: 5 mg Documented by: Aspirin (Aspirin 81 Mg Tablet.) 81 mg PO BEDTIME [facility] Last Admin: 10/16/20 20:46 Dose: 81 mg Documented by: Budesonide (Budesonide 0.5 Mg/2 Ml Vial.[place]) 0.5 mg NEB DAILY [facility] Last Admin: 10/17/20 04:46 Dose: 0.5 mg Documented by: Carvedilol (Carvedilol 6.25 Mg Tablet) 6.25 mg PO BIDWM [facility] Last Admin: 10/17/20 09:35 Dose: 6.25 mg Documented by: Clonidine (Clonidine Hcl 0.1 Mg Tablet) 0.1 mg PO TID [facility] Last Admin: 10/17/20 09:36 Dose: 0.1 mg Documented by: Escitalopram Oxalate (Escitalopram Oxalate 10 Mg Tablet) 10 mg PO DAILY [facility] Last Admin: 10/17/20 09:37 Dose: 10 mg Documented by: Fluticasone Propionate (Fluticasone Propionate 16 Gm Nasal [place]) 1 spray MICHAEL BID [facility] ([facility] ISSUE) Last Admin: 10/17/20 09:37 Dose: 1 spray Documented by: Furosemide (Furosemide 20 Mg Tablet) 20 mg PO QDAC [facility] Last Admin: 10/17/20 06:00 Dose: 20 mg Documented by: Guaifenesin (Guaifenesin 600 Mg Tablet.Er) 600 mg PO BID [facility] Last Admin: 10/17/20 09:36 Dose: 600 mg Documented by: Losartan Potassium (Losartan Potassium 100 Mg Tablet) 100 mg PO DAILY [facility] Last Admin: 10/17/20 09:35 Dose: 100 mg Documented by: Minoxidil (Minoxidil 2.5 Mg Tablet) 5 mg PO BID [facility] Last Admin: 10/17/20 09:36 Dose: 5 mg Documented by: Non-Formulary Medication (Simethicone ) 80 mg PO BID PRN PRN Reason: flatulance Non-Formulary Medication (Peg 400-Propylene Glycol ) 1 drop EACHEYE 5XD PRN PRN Reason: dry eyes Pantoprazole Sodium (Pantoprazole Sodium 40 Mg Tablet.Dr) 40 mg PO QDAC [facility] Last Admin: 10/17/20 06:00 Dose: 40 mg Documented by: Polyethylene Glycol (Polyethylene Glycol 17 Gm Powd.Pack) 17 gm PO DAILY [facility] Last Admin: 10/17/20 09:34 Dose: 17 gm Documented by: Potassium Chloride (Potassium Chloride 10 Meq Capsule.Er) 10 meq PO DAILYWM [facility] Last Admin: 10/17/20 09:36 Dose: 10 meq Documented by: Prednisone (Prednisone 20 Mg Tablet) 20 mg PO DAILYWM [facility] (NEW RX FOR 5 DAYS) Last Admin: 10/17/20 09:36 Dose: 20 mg Documented by: OMNICEF 300 MG BID [facility] (NEW RX FOR 5 DAYS) LAST ADMIN: Tamsulosin HCl (Tamsulosin Hcl 0.4 Mg Cap.Er.24h) 0.8 mg PO BEDTIME [facility] Last Admin: 10/16/20 20:46 Dose: 0.8 mg Documented by: RAAD RESPIMAT 2 PUFF INHALATION DAILY Documented by: NEW PRESCRIPTIONS: OMNICEF 300 MG BID FOR 5 DAYS PREDNISONE 20 MG DAILY FOR 5 DAYS CONTINUE USE OF FLONASE 1 SPRAY BID TO EACH NOSTRIL (HOSPITAL ISSUE SENT WITH PATIENT) DISCONTINUED MEDICATIONS: AMLODIPINE 5 MG BID MEDICATION CHANGE: AMLODIPINE 5 MG AT BEDTIME ONLY DIET INSTRUCTIONS: HEART HEALTHY ACTIVITY: GRADUALLY RESUME TOLERATED SMOKING: NOT APPLICABLE DISEASE SPECIFIC EDUCATION: CONTINUE USE OF TRILOGY AT NIGHT WITH FULL FACE MASK CONTINUE TO DO NEB TREATMENTS TID CONTINUE TO USE COMPRESSION VEST AFTER NEBULIZER TREATMENT CONTINUE WOUND CARE TO RIGHT NOSTRIL AND BEHIND RIGHT EAR WITH VINEGAR WATER BID AND FOLLOW WITH DRY DRESSING PRESCRIPTIONS APPOINTMENT HOSPITAL COURSE: This is an 80-year-old white male who presented to the emergency room with worsening shortness of breath, elevated renal function. Chest x-ray showed possible right middle lobe pneumonia. He had recently had a skin cancer removed from the left side of his nose, had a Mohs procedure done and has been unable to wear his Trilogy bipap at nighttime. I do believe that this contributed to his COPD exacerbation and worsening shortness of breath. He came in on 4L of oxygen. p02 was elevated at 119. We were able to turn him down to 3L. He was started on Rocephin 1 gm IV daily along with Zithromax 500 mg daily for three days. We were able to get him a face mask rather than the nose prongs for his Trilogy machine, which he was able to wear at night. He does this for his chronic respiratory failure. He also had stopped using his percussion vest that he also wears for his COPD which we had his daughter bring in and got him to start wearing again during this hospital stay. He also had 2+ bilateral lower extremity edema when he initially came in. He was given Lasix in the emergency room and then IV Lasix once out on the floor and this resolved. Again, we have discussed with him the importance of wearing his Trilogy machine at night, continue to do his percussion vest. I have advised him not to have any surgical procedures on his face done again without consideration of how this might affect his respiratory status given the fragility of this. We will send him home with Omnicef 300 mg b.i.d. for 5 days and Prednisone 20 mg daily for 5 days. He is to followup with Dermatology as prescribed and we will see him in the office next week. TIME SPENT: More than 60 minutes. NITIN
--- NOTE | 2020-10-19 12:30 | ECHO2D ---
Date of Exam: 10/17/2020 Ordering Physician: DR. HAILEY SCHULTE Room #: 104 Reason for Echo: HTN, COPD, CAD, SOA, LEG EDEMA M-Mode Normal Adult Results LV Dimensions Normal Adult Results AoV Opening excursions >1.6 >1.6 LVEDD-base- 3.5-5.8 4.7 Ao root dimensions 2.0-3.7 3.5 LVESD-base- 3.1-4.6 L. Atrium dimensions 1.9-3.8 3.5 Post. Wall thickness 0.8-1.1 1.2 IV septum (thickness) 0.7-1.2 1.2 Post. Wall excursion 0.72-1.3 NORMAL Septal motion NORMAL Systolic motion R. Ventricular cavity 1.5-2.0 3.6 LVEF 60% 75% Paradoxical septal wall motion NORMAL 2-D : 2-D M Mode Echocardiogram was performed using apical four chamber and left parasternal long and short axis views. Mitral, tricuspid and aortic valves appear to be normal. Contractility of the left ventricle seems to be normal, so is the cavity size. Left atrial cavity size and aortic root appear to be normal. There is no pericardial effusion. There is no thrombus noted in the left ventricle or left atrial cavity. ENLARGED RIGHT VENTRICLE CAVITY M-MODE: MV: NORMAL AV: NORMAL TV: NORMAL PV: CHAMBER SIZE: ENLARGED RIGHT VENTRICLE CAVITY WALL MOTION: NORMAL PERICARDIUM: NORMAL INTERPRETATION: 1. LEFT VENTRICLE HYPERTROPHY 2. ENLARGED RIGHT VENTRICLE CAVITY 3. NORMAL VALVES 4. NORMAL LEFT VENTRICLE CONTRACTILITY MTDD
== END 2020-10-17 13:40 | disposition home or self-care (01) | DRG 194 ==
LOC: ED 10:18 → MEDSURG A 12:21
PROVIDERS: ADMIT Internal Medicine; ATTEND Internal Medicine
DX: E86.0 Dehydration; E87.70 Fluid overload, unspecified; J96.10 Chronic respiratory failure, unspecified whether with hypoxia or hypercapnia; Z20.822 Contact with and (suspected) exposure to COVID-19; I25.10 Atherosclerotic heart disease of native coronary artery without angina pectoris; R79.89 Other specified abnormal findings of blood chemistry; R05 Cough; Z99.81 Dependence on supplemental oxygen; J18.9 Pneumonia, unspecified organism; R51.9 Headache, unspecified; I50.9 Heart failure, unspecified; E87.1 Hypo-osmolality and hyponatremia; D64.9 Anemia, unspecified; R60.0 Localized edema; R53.81 Other malaise; I10 Essential (primary) hypertension; R06.02 Shortness of breath; R07.81 Pleurodynia; N18.2 Chronic kidney disease, stage 2 (mild)

== ENCOUNTER 2020-12-19 06:39 | Inpatient (IN) ==
[2020-12-19] MEDS ORDERED: VENTOLIN HFA (PER PUFF-WITH SPACER) IH ONE ×2 (06:59→10:09)
[2020-12-19] MEDS ORDERED: SOLU-MEDROL 125 MG IVP STA (06:59)
--- NOTE | 2020-12-19 07:06 | ED.PDOC ---
General ED Provider: Dr. KERVIN GALINDO MD Chief Complaint: Shortness of Air Stated Complaint: mild to mod constant shortness of breath since 3am, hx copd, 5liters home oxygen, +cough, +hx covid vaccine, no hx RI, pt states he does not want to be intubated or on life support or receive cpr if recommended Time Seen by Provider: 12/19/20 06:57 Mode of Arrival: Ambulance Information Source: Patient Primary Care Provider: HAILEY SCHULTE Nursing and Triage Documentation Reviewed and Agree: Yes Does patient meet sepsis criteria?: No System Inflammatory Response Syndrome: Not Applicable Sepsis Protocol: For patient's 13 years and over: Temp is 96.8 and below OR 101 and greater Pulse >90 BPM Resp >20/minute Acutely Altered Mental Status Are patient's symptoms suggestive of a new infection, such as: -Pneumonia -Skin, Soft Tissue -Endocarditis -UTI -Bone, Joint Infection -Implantable Device -Acute Abdominal Infection -Wound Infection -Meningitis -Blood Stream Catheter Infection -Unknown Review of Systems Review Of Systems Constitutional: Denies Fever Eyes: Denies Vision change Ears, Nose, Mouth, Throat: Denies Throat pain Respiratory: Reports Cough and Short of air; Denies Stridor Cardiac: Denies Chest pain GI: Denies Abdominal pain : Denies Flank pain Musculoskeletal: Denies Back pain or Neck pain Skin: Denies Cyanosis Neurological: Denies Cognitive dysfunction or Headache All Other Systems: Other [facility] Medical History Anxiety Blood disease BPH (benign prostatic hyperplasia) CAD (coronary artery disease) Cancer of skin of external nose (~10/04/20) Chronic bronchitis Chronic respiratory failure COPD (chronic obstructive pulmonary disease) Emphysema of lung Enlarged heart Gastroesophageal reflux disease Hypertension Osteoarthritis Oxygen dependent Prostate enlargement Sciatica, right side Seasonal allergies Secondary polycythemia Sleep apnea Stage 3 chronic kidney disease Family History Mother Obstetric anesthesia problems Emphysema of lung Social History Smoking and tobacco status: Former smoker History of recent travel: No Surgical History History of bilateral cataract extraction History of coronary artery stent placement History of tonsillectomy Physical Exam Physical Exam Appearance: Reports Well-appearing Ill-appearing: Not Applicable Pain Distress: Not Applicable Eyes: Reports Conjunctiva clear ENT: Reports Oropharynx normal Neck: Supple Respiratory: Reports Airway patent and Wheezes; Denies Retractions Cardiovascular: Reports RRR GI/: Reports Soft and Nontender Musculoskeletal: Reports No calf tenderness Skin: Reports Warm and Dry Neurological: Reports Alert and Oriented Psychiatric: Reports Affect appropriate Interpretation Radiology Interpretation Radiology Interpretation By: Radiologist Exam Interpreted: CXR Xray Comments: bibasilar infiltrate EKG Interpretation Time of EKG #1: 08:49 Rate: Normal Rhythm: Sinus Ectopy: PVCs Interpretation: no stemi Critical Care Note Critical Care Note Total Critical Care Time (mins): 0 Course Course Hematology/Chemistry: 12/19/20 07:17 12/19/20 07:17 Orders, Labs, Meds: Lab Review 12/19/20 12/19/20 12/19/20 07:09 07:17 07:17 WBC 7.21 RBC 4.60 L Hgb 14.6 Hct 42.9 MCV 93.3 MCH 31.7 H MCHC 34.0 RDW Coeff of Bhaskar 12.6 Plt Count 172 Immature Gran % (Auto) 0.1 Neut % (Auto) 67.3 Lymph % (Auto) 18.3 [place] % (Auto) 8.6 Eos % (Auto) 5.4 Baso % (Auto) 0.3 Neut # (Auto) 4.9 Lymph # (Auto) 1.3 [place] # (Auto) 0.6 Eos # (Auto) 0.4 Baso # (Auto) 0.0 Immature Gran # (Auto) 0.0 Puncture Site Rrad Base Excess 2.5 O2 Saturation 86.4 L ABG pH 7.40 ABG pCO2 44.0 ABG pO2 52.0 L* ABG HCO3 27.3 ABG Total CO2 28.7 H Albino Test + Hemoglobin 1.2 Oxyhemoglobin 87.9 L Carboxyhemoglobin 2.4 H Total Hemoglobin 14.7 O2 Delivery Device Cannula Oxygen Liter Flow 3.00 Sodium 134.5 Potassium 4.05 Chloride 98.7 Carbon Dioxide 28.4 Anion Gap 11.45 BUN 15.5 Creatinine 1.31 H Estimated GFR (MDRD) 53.00 BUN/Creatinine Ratio 11.83 Glucose 97.3 Lactic Acid Calcium 9.15 Total Bilirubin 0.57 AST 25.1 ALT 12.0 Alkaline Phosphatase 56.6 Troponin I < 0.012 NT-Pro-B Natriuret Pep Total Protein 6.48 Albumin 4.09 Globulin 2.39 Albumin/Globulin Ratio 1.71 Adenovirus (PCR) B. pertussis DNA (PCR) B.parapertussis DNA PCR C. pneumoniae DNA (PCR) Coronavirus OC43 (PCR) Coronavirus HKU1 (PCR) Coronavirus 229E (PCR) Coronavirus NL63 (PCR) Human Metapneumovir PCR Influenza Type A (PCR) Influenza B (RT-PCR) M. pneumoniae (PCR) Parainfluenza 1 (PCR) Parainfluenza 2 (PCR) Parainfluenza 3 (PCR) Parainfluenza 4 (PCR) RSV (PCR) Entero/Rhino (PCR) SARS-CoV-2 (PCR) 12/19/20 12/19/20 12/19/20 07:17 07:38 07:44 WBC RBC Hgb Hct MCV MCH MCHC RDW Coeff of Bhaskar Plt Count Immature Gran % (Auto) Neut % (Auto) Lymph % (Auto) [place] % (Auto) Eos % (Auto) Baso % (Auto) Neut # (Auto) Lymph # (Auto) [place] # (Auto) Eos # (Auto) Baso # (Auto) Immature Gran # (Auto) Puncture Site Base Excess O2 Saturation ABG pH ABG pCO2 ABG pO2 ABG HCO3 ABG Total CO2 Albino Test Hemoglobin Oxyhemoglobin Carboxyhemoglobin Total Hemoglobin O2 Delivery Device Oxygen Liter Flow Sodium Potassium Chloride Carbon Dioxide Anion Gap BUN Creatinine Estimated GFR (MDRD) BUN/Creatinine Ratio Glucose Lactic Acid 0.66 L Calcium Total Bilirubin AST ALT Alkaline Phosphatase Troponin I NT-Pro-B Natriuret Pep 184.000 Total Protein Albumin Globulin Albumin/Globulin Ratio Adenovirus (PCR) Not detected B. pertussis DNA (PCR) Not detected B.parapertussis DNA PCR Not detected C. pneumoniae DNA (PCR) Not detected Coronavirus OC43 (PCR) Not detected Coronavirus HKU1 (PCR) Not detected Coronavirus 229E (PCR) Not detected Coronavirus NL63 (PCR) Not detected Human Metapneumovir PCR Not detected Influenza Type A (PCR) Not detected Influenza B (RT-PCR) Not detected M. pneumoniae (PCR) Not detected Parainfluenza 1 (PCR) Not detected Parainfluenza 2 (PCR) Not detected Parainfluenza 3 (PCR) Not detected Parainfluenza 4 (PCR) Not detected RSV (PCR) Not detected Entero/Rhino (PCR) Not detected SARS-CoV-2 (PCR) Not detected Orders Category Date Time Status ABG DRAW REQUEST Stat CARDIO 12/19/20 06:59 Completed EKG-(ED ONLY) Stat CARDIO 12/19/20 06:59 Completed METERED DOSE INHALATION Routine CARDIO 12/19/20 07:00 Completed ED APPLY O2 .ONCE EMERGENCY 12/19/20 06:59 Active ABG COOX Stat LAB 12/19/20 07:09 Completed BLOOD CULTURE Stat LAB 12/19/20 08:48 Received CBC W/ AUTO DIFF Stat LAB 12/19/20 07:17 Completed COMPREHENSIVE METABOLIC PANEL Stat LAB 12/19/20 07:17 Completed LACTIC ACID Stat LAB 12/19/20 07:38 Completed NT-PROBNP Stat LAB 12/19/20 07:17 Completed RESPIRATORY PANEL 2.1 (PCR) Stat LAB 12/19/20 07:44 Completed TROPONIN I Stat LAB 12/19/20 07:17 Completed Albuterol Inhaler(with Spacer) [Ventolin Hfa (Per Puff- MEDS 12/19/20 06:59 Discontinued with Spacer)] 2 puff IH ONCE ONE Azithromycin Inj [Zithromax] 500 mg MEDS 12/19/20 07:51 Discontinued 0.9 % Sodium Chloride [Sodium Chloride] 250 ml IV ONCE Ceftriaxone/D5w 1 gm Premix [Rocephin 1 gm/50 ml D5w] MEDS 12/19/20 07:51 Discontinued 1 gm in 50 ml IV ONCE Methylprednisolone Sod Succ/Pf [Solu-Medrol 125 mg] MEDS 12/19/20 06:59 Discontinued 125 mg IVP ONCE STA CHEST, 1V AP ONLY Stat RADS 12/19/20 06:59 Completed Medications Discontinued Medications Generic Name Dose Route Start Last Admin Trade Name Freq PRN Reason Stop Dose Admin Albuterol Sulfate 2 puff 12/19/20 06:59 12/19/20 07:33 Albuterol Sulfate (Ventolin Hfa) 18 Gm 1 Puff With Spacer IH 12/19/20 07:00 2 puff ONCE ONE Administration CEFTRIAXONE/D5W 1 GM PREMIX 1 gm in 50 mls @ 75 mls/hr 12/19/20 07:51 12/19/20 09:00 Rocephin 1 Gm/50 Ml D5w IV 12/19/20 08:30 75 mls/hr ONCE ONE Administration Azithromycin 500 mg/ Sodium 250 mls @ 125 mls/hr 12/19/20 07:51 12/19/20 09:48 Chloride IV 12/19/20 09:50 125 mls/hr ONCE ONE Administration Methylprednisolone Sodium Succinate 125 mg 12/19/20 06:59 12/19/20 07:45 Methylprednisolone Sod Succ/Pf 125 Mg/2 Ml Vial IVP 12/19/20 07:00 125 mg ONCE STA Administration Vital Signs: Temp Pulse Resp BP Pulse Ox 12/19/20 06:40 97.9 F 87 20 131/64 91 L Discharge Plan Discharge Patient Disposition: ADMITTED INPATIENT Discharge Problem: COPD with acute exacerbation, Pneumonia Prescriptions: No Action aspirin 81 MG tablet,delayed release (DR/EC) 81 mg PO BEDTIME RF: 0 escitalopram oxalate 10 MG tablet 10 mg PO DAILY RF: 0 polyethylene glycol 3350 [Miralax] 17 gram Powder In Packet 17 g PO DAILY RF: 0 budesonide 0.5 mg/2 mL Suspension For Nebulization 0.5 mg inhalation DAILY RF: 0 guaifenesin [Mucinex] 600 mg Tablet Extended Release 12hr 600 mg PO BID RF: 0 alprazolam [Xanax] 0.5 mg Tablet 0.5 mg PO BID RF: 0 clonidine HCl 0.1 mg tablet 0.1 mg PO TID RF: 0 tamsulosin 0.4 MG capsule 0.8 mg PO BEDTIME RF: 0 albuterol sulfate [Ventolin HFA] 8 GM HFA aerosol inhaler 2 puff inhalation Q4-6H PRN (Reason: shortness of air) RF: 0 Stiolto Respimat 4 GM mist 2 puff inhalation DAILY RF: 0 pantoprazole [Protonix] 40 MG tablet,delayed release (DR/EC) 40 mg PO DAILY RF: 0 albuterol sulfate 1 VIAL solution for nebulization 1 vial NEB TID RF: 0 furosemide [Lasix] 20 mg Tablet 20 mg PO DAILY Qty: 30 RF: 2 potassium chloride [K-Tab] 10 mEq Tablet Extended Release 10 meq PO DAILY Qty: 30 RF: 2 carvedilol [Coreg] 6.25 mg Tablet 6.25 mg PO BID Qty: 60 RF: 2 losartan 100 mg Tablet 100 mg PO DAILY RF: 0 Systane (propylene glycol) 0.4-0.3 % Drops 1 drp BOTHEYES 5XD PRN (Reason: Dry Eyes) RF: 0 amlodipine 5 mg tablet 5 mg PO DAILY RF: 0 hydrocortisone acetate [Anucort-HC] 25 mg suppository 1 mg DC TID PRN (Reason: Hemorrhoid pain) RF: 0 clotrimazole-betamethasone 1-0.05 % cream 1 applic TOPICAL BID RF: 0 minoxidil 10 mg tablet 5 mg PO DAILY RF: 0 naproxen 500 mg tablet 500 mg PO BID PRN (Reason: pain) Qty: 60 RF: 1 ED Provider: KERVIN GALINDO Condition: Stable Physician Progress Note: []full tele admit d/w Dr Schulte
[2020-12-19 07:20] LABS: BASOPHILS % (AUTO) 0.3 % (0.0-3.0); EOSINOPHILS # (AUTO) 0.4 K/ul (0.0-0.7); EOSINOPHILS % (AUTO) 5.4 % (0.0-7.0); HEMATOCRIT 42.9 % (42.0-52.0); HEMOGLOBIN 14.6 g/dl (14.0-18.0); IMMATURE GRANULOCYTE % (AUTO) 0.1 % (0.0-5.0); LYMPHOCYTES # (AUTO) 1.3 K/uL (0.60-3.4); LYMPHOCYTES % (AUTO) 18.3 (10.0-50.0); MEAN CORPUSCULAR HEMOGLOBIN 31.7 pg (27.0-31.0); MEAN CORPUSCULAR VOLUME 93.3 fl (80.0-94.0); MONOCYTES # (AUTO) 0.6 K/uL (0.4-2.0); MONOCYTES % (AUTO) 8.6 (0-10); NEUTROPHILS # (AUTO) 4.9 K/ul (2.0-6.9); NEUTROPHILS % (AUTO) 67.3 % (42.2-75.2); PLATELET COUNT 172 10^3/uL (140-440); RDW COEFFICIENT OF VARIATION 12.6 % (11.6-14.8); WHITE BLOOD COUNT 7.21 K/ul (4.2-10.2)
[2020-12-19 07:24] LABS: ABG O2 HGB 87.9 % (95-100); BEecf 2.5 (-2.0-3.0); COHb 2.4 (0.5-1.5); HCO3 27.3 (21-28); MetHb 1.2 (0-1.5); TCO2 28.7 (19-24); sO2 86.4 % (94-98); tHb 14.7 g/dl (11.7-17.4)
[2020-12-19 07:33] LABS: ALBUMIN 4.09 g/dL (3.5-5.0); ALKALINE PHOSPHATASE 56.6 U/L (56-119); ASPARTATE AMINO TRANSFERASE 25.1 U/L (17-59); BILIRUBIN,TOTAL 0.57 mg/dL (0.2-1.3); BLOOD UREA NITROGEN 15.5 mg/dL (9-20); CALCIUM 9.15 mg/dL (8.4-10.2); CARBON DIOXIDE 28.4 mmol/L (22-30.0); CREATININE 1.31 mg/dL (0.60-1.10); GLUCOSE 97.3 mg/dL (74-106); POTASSIUM 4.05 mmol/L (3.5-5.1); SODIUM 134.5 mmol/L (134.5-145); TOTAL PROTEIN 6.48 g/dL (6.3-8.2)
[2020-12-19 07:34] LABS: CHLORIDE 98.7 mmol/L (98-107)
--- NOTE | 2020-12-19 07:45 | DI ---
EXAM: Chest one view, frontal view only. HISTORY: Shortness of breath. COMPARISON: 10/10/2020, 03/29/2019, 09/26/2018, 12/25/2016. FINDINGS: The heart size is normal. There is no pulmonary vascular congestion. There is consolidat ion in both lung bases. Some curvilinear opacities been present previously although overall degree a ppears increased from prior study. Otherwise, the lungs are clear save for calcified granulomatous c hanges. No pleural effusion or pneumothorax is seen. No acute osseous abnormality is identified. IMPRESSION: Possible bibasilar pneumonia superimposed on chronic scarring.
[2020-12-19 07:46] LABS: TROPONIN I < 0.012 ng/ml (0.0000-0.120)
[2020-12-19 07:49] LABS: BORDETELLA PARAPERTUSSIS (PCR) NOT DETECTED (NOT DETECT); BORDETELLA PERTUSSIS (PCR) NOT DETECTED (NOT DETECT); CHLAMYDIA PNEUMONIAE (PCR) NOT DETECTED (NOT DETECT); CORONAVIRUS 229E (PCR) NOT DETECTED (NOT DETECT); CORONAVIRUS HKU1 (PCR) NOT DETECTED (NOT DETECT); CORONAVIRUS NL63 (PCR) NOT DETECTED (NOT DETECT); CORONAVIRUS OC43 (PCR) NOT DETECTED (NOT DETECT); HUMAN METAPNEUMOVIRUS (PCR) NOT DETECTED (NOT DETECT); HUMAN RHINOVIRUS/ENTEROV (PCR) NOT DETECTED (NOT DETECT); INFLUENZA B (PCR) NOT DETECTED (NOT DETECT); MYCOPLASMA PNEUMONIAE (PCR) NOT DETECTED (NOT DETECT); PARAINFLUENZA VIRUS 1 (PCR) NOT DETECTED (NOT DETECT); PARAINFLUENZA VIRUS 2 (PCR) NOT DETECTED (NOT DETECT); PARAINFLUENZA VIRUS 3 (PCR) NOT DETECTED (NOT DETECT); PARAINFLUENZA VIRUS 4 (PCR) NOT DETECTED (NOT DETECT); RESPIRATORY SYNCYTIAL V (PCR) NOT DETECTED (NOT DETECT); SARS_COV_2 (PCR) NOT DETECTED (NOT DETECT)
[2020-12-19] MEDS ORDERED: ZITHROMAX 500 MG in SODIUM CHLORIDE 250 ML IV ONE (07:51)
[2020-12-19] MEDS ORDERED: ROCEPHIN 1 GM/50 ML D5W 1 GM/50 ML BAG IV ONE (07:51)
[2020-12-19 08:39] LABS: ADENOVIRUS (PCR) NOT DETECTED (NOT DETECT)
[2020-12-19] MEDS ORDERED: ZITHROMAX 500 MG in SODIUM CHLORIDE 250 ML IV STA (10:03)
[2020-12-19] MEDS ORDERED: ATROPINE SULFATE PFS IVP PRN (10:03)
[2020-12-19] MEDS ORDERED: NITROSTAT SL PRN (10:03)
[2020-12-19] MEDS ORDERED: SODIUM CHLORIDE 1,000 ML IV STA (10:03)
[2020-12-19] MEDS ORDERED: SOLU-MEDROL 40 MG IVP STA (10:03)
[2020-12-19] MEDS ORDERED: TYLENOL PO PRN (10:03)
[2020-12-19 10:37] LABS: BILIRUBIN,URINE Negative (NEGATIVE); CLARITY,URINE Clear (CLEAR); COLOR,URINE Yellow (YELLOW); GLUCOSE, URINE (UA) Negative (NEGATIVE); KETONES,URINE Negative (NEGATIVE); LEUKOCYTE ESTERASE ,URINE Negative (NEGATIVE); NITRITE,URINE Negative (NEGATIVE); PROTEIN,URINE 1+ (NEGATIVE); URINE, BLOOD Trace-intact (NEGATIVE); UROBILINOGEN,URINE 0.2 (0.2)
[2020-12-19 10:45] LABS: HYALINE CASTS, URINE 0-2 (NOT PRESENT); SQUAMOUS EPITHELIAL CELL,UR NOT PRESENT (0-5); URINE WBC, MICROSCOPIC 0-2 (0-2)
[2020-12-19 11:11] VITALS: BMI 26.9
[2020-12-19] MEDS: COREG PO SCH ×2 (12:46→16:22)
[2020-12-19] MEDS: MIRALAX PO SCH (12:46)
[2020-12-19] MEDS: LEXAPRO PO SCH (12:47)
[2020-12-19] MEDS: PROTONIX PO SCH (12:47)
[2020-12-19] MEDS: MICRO-K CAP PO SCH (12:47)
[2020-12-19] MEDS: COZAAR PO SCH (12:47)
[2020-12-19] MEDS: XANAX PO SCH ×2 (12:47→20:30)
[2020-12-19] MEDS: LASIX TAB PO SCH (12:47)
[2020-12-19] MEDS: MUCINEX PO SCH ×2 (12:47→20:29)
[2020-12-19] MEDS ORDERED: NAPROSYN PO PRN (13:52)
[2020-12-19] MEDS ORDERED: VENTOLIN HFA (PER PUFF-WITH SPACER) IH PRN (13:52)
[2020-12-19 13:59] LABS: ABG O2 HGB 92.1 % (95-100); ABG PH 7.33 (7.35-7.45); BEecf -0.1 (-2.0-3.0); COHb 2.7 (0.5-1.5); HCO3 25.8 (21-28); MetHb 1.1 (0-1.5); TCO2 27.3 (19-24); sO2 92.5 % (94-98); tHb 16.4 g/dl (11.7-17.4)
[2020-12-19 15:34] LABS: CREATINE KINASE 97.7 U/L (55-170)
[2020-12-19 15:47] LABS: TROPONIN I 0.027 ng/ml (0.0000-0.120)
[2020-12-19] MEDS: CATAPRES PO SCH ×2 (16:22→20:29)
[2020-12-19] MEDS: SOLU-CORTEF 250 MG IVP SCH (18:37)
[2020-12-19] MEDS: ALBUTEROL 0.083% NEB NEB SCH (19:10)
[2020-12-19] MEDS: FLOMAX PO SCH (20:30)
[2020-12-19] MEDS: NORVASC PO SCH (20:30)
[2020-12-19] MEDS: LOTRISONE 45 GM TP SCH ×2 (20:30→20:35)
[2020-12-19] MEDS: MINOXIDIL PO SCH (20:30)
[2020-12-19] MEDS ORDERED: ASPIRIN EC PO SCH (21:00)
[2020-12-19 23:20] LABS: CREATINE KINASE 93.4 U/L (55-170)
[2020-12-19 23:33] LABS: TROPONIN I 0.013 ng/ml (0.0000-0.120)
[2020-12-20] MEDS: SOLU-CORTEF 250 MG IVP SCH ×4 (01:00→21:12)
[2020-12-20] MEDS: ALBUTEROL 0.083% NEB NEB SCH ×3 (04:45→20:15)
[2020-12-20 04:49] LABS: BASOPHILS % (AUTO) 0.1 % (0.0-3.0); HEMATOCRIT 39.7 % (42.0-52.0); HEMOGLOBIN 13.6 g/dl (14.0-18.0); IMMATURE GRANULOCYTE # (AUTO) 0.1 (0.0-1.0); IMMATURE GRANULOCYTE % (AUTO) 0.6 % (0.0-5.0); LYMPHOCYTES # (AUTO) 1.3 K/uL (0.60-3.4); MEAN CORPUSCULAR HEMOGLOBIN 31.8 pg (27.0-31.0); MEAN CORPUSCULAR HGB CONC 34.3 (31.8-35.4); MEAN CORPUSCULAR VOLUME 92.8 fl (80.0-94.0); MONOCYTES # (AUTO) 0.4 K/uL (0.4-2.0); MONOCYTES % (AUTO) 3.2 (0-10); NEUTROPHILS # (AUTO) 10.4 K/ul (2.0-6.9); NEUTROPHILS % (AUTO) 85.1 % (42.2-75.2); PLATELET COUNT 181 10^3/uL (140-440); RDW COEFFICIENT OF VARIATION 12.8 % (11.6-14.8); RED BLOOD COUNT 4.28 10^6/ul (4.70-6.10); WHITE BLOOD COUNT 12.22 K/ul (4.2-10.2)
[2020-12-20 05:03] LABS: ALANINE AMINOTRANSFERASE 12.4 U/L (0-50); ALBUMIN 3.81 g/dL (3.5-5.0); ALKALINE PHOSPHATASE 47.1 U/L (56-119); ASPARTATE AMINO TRANSFERASE 19.7 U/L (17-59); BILIRUBIN,TOTAL 0.47 mg/dL (0.2-1.3); BLOOD UREA NITROGEN 18.9 mg/dL (9-20); CALCIUM 8.73 mg/dL (8.4-10.2); CHLORIDE 101.8 mmol/L (98-107); CREATININE 1.19 mg/dL (0.60-1.10); GLUCOSE 137.9 mg/dL (74-106); POTASSIUM 4.32 mmol/L (3.5-5.1); TOTAL PROTEIN 6.22 g/dL (6.3-8.2)
[2020-12-20] MEDS: LASIX TAB PO SCH (05:46)
[2020-12-20] MEDS: PROTONIX PO SCH (05:46)
[2020-12-20] MEDS ORDERED: PULMICORT 0.5 MG/2 ML NEB SCH (06:00)
[2020-12-20] MEDS ORDERED: HYDROCORTISONE 2.5% CREAM TP PRN (08:21)
--- NOTE | 2020-12-20 08:55 | PCM.PROG ---
Attending Provider: ATTENDING PROVIDER: Dr. HAILEY SCHULTE This patient is seen with Debbie Garcia, Nurse Practitioner. DATE OF SERVICE: 12/20/20 SUBJECTIVE: This 80 year old /WHITE M was hospitalized 12/19/20. The patient is resting comfortably. Reports his shortness of breath is slightly improved. Now has brown blood tinged sputum. He is having complaint of pain with hemorrhoids, using multiple topicals. REVIEW OF SYSTEMS: CONSTITUTIONAL: No night sweats. No fatigue, malaise, lethargy. No fever or chills. Weakness. HEENT: Eyes: No visual changes. No eye pain. No eye discharge. ENT: No runny nose. No epistaxis. No sinus pain. No odynophagia. No congestion. RESPIRATORY: Cough, no congestion. No hemoptysis. Shortness of breath. CARDIOVASCULAR: No angina symptoms. No CHF symptoms. No atypical chest pain for CAD. No palpitations. No orthopnea.. GASTROINTESTINAL: No abdominal pain. No nausea or vomiting. No diarrhea or constipation. No hematemesis. No hematochezia. GENITOURINARY: No urgency. No frequency. No dysuria. No hematuria. No obstructive symptoms. No discharge. No pain. No significant abnormal bleeding. MUSCULOSKELETAL: No musculoskeletal pain; no joint swelling. NEUROLOGICAL: Awake, alert, oriented to time, place and person. No headache. No neck pain. No syncope. No seizures. No dizziness. PSYCHIATRIC: Not anxious. No depression. No suicidal thoughts. No homicidal thoughts. SKIN: No rash. No lesions. No wounds. Hemorrhoids. ENDOCRINE: No unexplained weight loss. No weight gain. HEMATOLOGIC/LYMPHATIC: No anemia. No purpura. No petechiae. No prolonged or excessive bleeding. No palpable lymph nodes. PHYSICAL EXAMINATION: GENERAL: The patient is awake, alert and oriented, lying in bed in no distress. VITAL SIGNS: Temperature 98.0 F, Pulse 78, Respiratory Rate 18, BP 129/67, Pulse Ox 93% HEENT: Head normocephalic, atraumatic. Eyes: Extraocular muscles are intact. Pupils are equal, round and reactive to light and accommodation. Ears: No lesions. Nose appeared normal. Throat: No exudate or erythema. NECK: Supple. No JVD, no carotid bruit. No lymphadenopathy or thyromegaly. LUNGS: Severely diminished breath sounds. Clear to auscultation. Percussion note normal. Chest symmetrical. HEART: S1, S2, no S3. No murmurs. No cyanosis or clubbing. No ascites. Pulses: Dorsalis pedis and posterior tibial pulses +1 to +2 both sides. ABDOMEN: Soft. Non-tender. Bowel sounds active. No CVA tenderness. No mass felt. EXTREMITIES: No edema. Full range of motion of all extremities, equal. NEUROLOGIC: No focal deficit. Cranial nerves II through XII are grossly intact. No headache. No double vision. SKIN: Not dry. Intact. Turgor-normal. LYMPHATIC: No palpable lymph nodes/no lymphedema. MUSCULOSKELETAL: Normal joints with no swelling. Muscle tone is normal. LAB REVIEW: 12/20/20 04:45 12/20/20 04:45 12/20/20 04:45: Sodium 134.0 L, Potassium 4.32, Chloride 101.8, Carbon Dioxide 26.0, Anion Gap 10.52, BUN 18.9, Creatinine 1.19 H, Estimated GFR (MDRD) 59.00, BUN/Creatinine Ratio 15.88, Glucose 137.9 H, Calcium 8.73, Total Bilirubin 0.47, AST 19.7, ALT 12.4, Alkaline Phosphatase 47.1 L, Total Protein 6.22 L, Albumin 3.81, Globulin 2.41, Albumin/Globulin Ratio 1.58 12/20/20 04:45: WBC 12.22 H D, RBC 4.28 L, Hgb 13.6 L, Hct 39.7 L, MCV 92.8, MCH 31.8 H, MCHC 34.3, RDW Coeff of Bhaskar 12.8, Plt Count 181, Immature Gran % (Auto) 0.6, Neut % (Auto) 85.1 H, Lymph % (Auto) 11.0, [place] % (Auto) 3.2, Eos % (Auto) 0.0, Baso % (Auto) 0.1, Neut # (Auto) 10.4 H, Lymph # (Auto) 1.3, [place] # (Auto) 0.4, Eos # (Auto) 0.0, Baso # (Auto) 0.0, Immature Gran # (Auto) 0.1 12/19/20 23:07: Total Creatine Kinase 93.4, Troponin I 0.013 12/19/20 15:05: Total Creatine Kinase 97.7, Troponin I 0.027 12/19/20 13:37: Puncture Site Rrad, Base Excess -0.1, O2 Saturation 92.5 L, ABG pH 7.33 L, ABG pCO2 49.0 H, ABG pO2 70.0 L, ABG HCO3 25.8, ABG Total CO2 27.3 H, Albino Test +, Hemoglobin 1.1, Oxyhemoglobin 92.1 L, Carboxyhemoglobin 2.7 H, Total Hemoglobin 16.4, O2 Delivery Device Cannula, Oxygen Liter Flow 5.00 12/19/20 10:24: Urine Color Yellow, Urine Clarity Clear, Urine pH 7.0, Ur Specific [place] 1.020, Urine Protein 1+ H, Urine Glucose (UA) Negative, Urine Ketones Negative, Urine Blood Trace-intact H, Urine Nitrite Negative, Urine Bilirubin Negative, Urine Urobilinogen 0.2, Ur Leukocyte Esterase Negative, Urine Microscopic RBC 2-5, Urine Microscopic WBC 0-2, Ur Squamous Epith Cells Not present, Hyaline Casts 0-2 12/19/20 07:44: Adenovirus (PCR) Not detected, B. pertussis DNA (PCR) Not detected, B.parapertussis DNA PCR Not detected, C. pneumoniae DNA (PCR) Not detected, Coronavirus OC43 (PCR) Not detected, Coronavirus HKU1 (PCR) Not detected, Coronavirus 229E (PCR) Not detected, Coronavirus NL63 (PCR) Not detected, Human Metapneumovir PCR Not detected, Influenza Type A (PCR) Not detected, Influenza B (RT-PCR) Not detected, M. pneumoniae (PCR) Not detected, Parainfluenza 1 (PCR) Not detected, Parainfluenza 2 (PCR) Not detected, Parainfluenza 3 (PCR) Not detected, Parainfluenza 4 (PCR) Not detected, RSV (PCR) Not detected, Entero/Rhino (PCR) Not detected, SARS-CoV-2 (PCR) Not detected ASSESSMENT: Please see below. 1. Bilateral pneumonia 2. Acute respiratory failure 3. Chronic kidney disease stage II 4. Both internal and external hemorrhoids 5. End stage COPD oxygen dependent 6. Hypertension PLAN: 1. Sputum culture 2. Anucort suppository 3. Topical Hydrocortisone 4. Decrease Solu-Cortef Q 8 hours 5. Discontinue Naproxen 6. Lasix daily as taken at home 7. Pulmicort BID Plan and coordination of the patient's care discussed in the presence of Software Developer and nurse. SCRIBED BY: Valentin VELEZ scribed while in presence of service performed by Dr. Schulte/Debbie Garcia APRN on 12/20/20 ([id number])
[2020-12-20] MEDS ORDERED: ZITHROMAX PO SCH (09:00)
[2020-12-20] MEDS ORDERED: ZITHROMAX 500 MG in SODIUM CHLORIDE 250 ML IV SCH (09:00)
[2020-12-20] MEDS: MIRALAX PO SCH (09:06)
[2020-12-20] MEDS: CATAPRES PO SCH ×3 (09:07→20:50)
[2020-12-20] MEDS: ZITHROMAX PO SCH (09:07)
[2020-12-20] MEDS: MUCINEX PO SCH ×2 (09:07→20:50)
[2020-12-20] MEDS: XANAX PO SCH ×2 (09:07→20:50)
[2020-12-20] MEDS: MINOXIDIL PO SCH ×2 (09:07→20:50)
[2020-12-20] MEDS: COREG PO SCH ×2 (09:07→16:06)
[2020-12-20] MEDS: LEXAPRO PO SCH (09:07)
[2020-12-20] MEDS: ROCEPHIN 1 GM/50 ML D5W 1 GM/50 ML BAG IV SCH (09:08)
[2020-12-20] MEDS: MICRO-K CAP PO SCH (09:08)
[2020-12-20] MEDS: LOTRISONE 45 GM TP SCH ×2 (09:08→21:00)
[2020-12-20] MEDS: COZAAR PO SCH (09:08)
[2020-12-20] MEDS: NON-FORMULARY MEDICATION (Tiotropium-Olodaterol [Stiolto Respimat] 4 GM mist) IH SCH (09:09)
[2020-12-20] MEDS ORDERED: OCEAN NASAL SPRAY NAS PRN (12:51)
[2020-12-20] MEDS: PULMICORT 0.5 MG/2 ML NEB SCH (20:15)
--- NOTE | 2020-12-20 20:38 | CT ---
EXAM: CT of the chest with and without contrast History: Bloody sputum Comparison: CT chest 09/27/2018 Technique: Multiplanar CT images through the thorax were obtained with and without the administratio n of IV contrast Findings: Heart size is upper limits of normal. Small anterior pericardial effusion. Coronary calc ifications. No axillary lymphadenopathy. Calcified mediastinal and hilar lymph nodes are seen. No change in the bilateral lung scarring. Apical predominant emphysema. No acute consolidation. No pl eural fluid and no pneumothorax. No suspicious lung masses or lung nodules. No thoracic aortic aneu rysm. Within the visualized upper abdomen, no acute findings. No acute osseous abnormalities. Impression: 1. No acute intrathoracic process. 2. Chronic obstructive pulmonary disease. 3. Stable bilateral lung scarring. 4. Old granulomatous disease. 5. Coronary artery disease All CT scans are performed using dose optimization techniques as appropriate to the performed exam an d include at least one of the following: Automated exposure control, adjustment of the mA and/or kV according t o size, and the use of iterative reconstruction technique.
[2020-12-20] MEDS: FLOMAX PO SCH (20:50)
[2020-12-20] MEDS: NORVASC PO SCH (20:50)
[2020-12-21] MEDS: PULMICORT 0.5 MG/2 ML NEB SCH ×2 (05:10→19:45)
[2020-12-21] MEDS: ALBUTEROL 0.083% NEB NEB SCH ×3 (05:10→19:45)
[2020-12-21 05:19] LABS: BASOPHILS % (AUTO) 0.1 % (0.0-3.0); HEMATOCRIT 41.5 % (42.0-52.0); HEMOGLOBIN 14.1 g/dl (14.0-18.0); IMMATURE GRANULOCYTE % (AUTO) 0.4 % (0.0-5.0); LYMPHOCYTES # (AUTO) 1.2 K/uL (0.60-3.4); LYMPHOCYTES % (AUTO) 13.1 (10.0-50.0); MEAN CORPUSCULAR HEMOGLOBIN 31.5 pg (27.0-31.0); MEAN CORPUSCULAR VOLUME 92.6 fl (80.0-94.0); MONOCYTES # (AUTO) 0.4 K/uL (0.4-2.0); MONOCYTES % (AUTO) 4.7 (0-10); NEUTROPHILS # (AUTO) 7.4 K/ul (2.0-6.9); NEUTROPHILS % (AUTO) 81.7 % (42.2-75.2); PLATELET COUNT 181 10^3/uL (140-440); RDW COEFFICIENT OF VARIATION 13.2 % (11.6-14.8); RED BLOOD COUNT 4.48 10^6/ul (4.70-6.10); WHITE BLOOD COUNT 9.02 K/ul (4.2-10.2)
[2020-12-21 05:30] LABS: ALANINE AMINOTRANSFERASE 15.2 U/L (0-50); ALBUMIN 4.44 g/dL (3.5-5.0); ALKALINE PHOSPHATASE 53.2 U/L (56-119); ASPARTATE AMINO TRANSFERASE 23.8 U/L (17-59); BILIRUBIN,TOTAL 0.47 mg/dL (0.2-1.3); BLOOD UREA NITROGEN 21.4 mg/dL (9-20); CALCIUM 9.19 mg/dL (8.4-10.2); CARBON DIOXIDE 25.3 mmol/L (22-30.0); CHLORIDE 99.4 mmol/L (98-107); CREATININE 1.15 mg/dL (0.60-1.10); GLUCOSE 120.3 mg/dL (74-106); POTASSIUM 4.09 mmol/L (3.5-5.1); SODIUM 134.9 mmol/L (134.5-145); TOTAL PROTEIN 7.37 g/dL (6.3-8.2)
[2020-12-21] MEDS: LASIX TAB PO SCH (05:38)
[2020-12-21] MEDS: PROTONIX PO SCH (05:38)
[2020-12-21] MEDS: SOLU-CORTEF 250 MG IVP SCH ×3 (05:39→20:55)
[2020-12-21] MEDS: NON-FORMULARY MEDICATION (Tiotropium-Olodaterol [Stiolto Respimat] 4 GM mist) IH SCH (08:35)
[2020-12-21] MEDS: ROCEPHIN 1 GM/50 ML D5W 1 GM/50 ML BAG IV SCH (08:35)
[2020-12-21] MEDS: MIRALAX PO SCH (08:40)
[2020-12-21] MEDS: MICRO-K CAP PO SCH (08:41)
[2020-12-21] MEDS: COREG PO SCH ×2 (08:41→16:36)
[2020-12-21] MEDS: XANAX PO SCH ×2 (08:41→20:55)
[2020-12-21] MEDS: LEXAPRO PO SCH (08:42)
[2020-12-21] MEDS: MINOXIDIL PO SCH ×2 (08:42→20:55)
[2020-12-21] MEDS: MUCINEX PO SCH ×2 (08:43→20:55)
[2020-12-21] MEDS: ZITHROMAX PO SCH (08:43)
[2020-12-21] MEDS: CATAPRES PO SCH ×3 (08:43→20:56)
[2020-12-21] MEDS: COZAAR PO SCH (08:43)
[2020-12-21] MEDS: LOTRISONE 45 GM TP SCH ×2 (08:46→20:54)
[2020-12-21] MEDS ORDERED: FLONASE NAS SCH (11:30)
[2020-12-21] MEDS: NORVASC PO SCH (20:55)
[2020-12-21] MEDS: FLOMAX PO SCH (20:55)
[2020-12-21] MEDS: FLONASE NAS SCH (20:56)
[2020-12-22] MEDS: ALBUTEROL 0.083% NEB NEB SCH ×3 (04:50→20:55)
[2020-12-22] MEDS: PULMICORT 0.5 MG/2 ML NEB SCH ×2 (04:50→20:55)
[2020-12-22 05:26] LABS: BASOPHILS % (AUTO) 0.1 % (0.0-3.0); HEMATOCRIT 38.1 % (42.0-52.0); IMMATURE GRANULOCYTE % (AUTO) 0.5 % (0.0-5.0); LYMPHOCYTES # (AUTO) 1.3 K/uL (0.60-3.4); LYMPHOCYTES % (AUTO) 17.5 (10.0-50.0); MEAN CORPUSCULAR HEMOGLOBIN 31.9 pg (27.0-31.0); MEAN CORPUSCULAR HGB CONC 34.1 (31.8-35.4); MEAN CORPUSCULAR VOLUME 93.4 fl (80.0-94.0); MONOCYTES # (AUTO) 0.4 K/uL (0.4-2.0); NEUTROPHILS # (AUTO) 5.9 K/ul (2.0-6.9); NEUTROPHILS % (AUTO) 76.9 % (42.2-75.2); PLATELET COUNT 158 10^3/uL (140-440); RED BLOOD COUNT 4.08 10^6/ul (4.70-6.10); WHITE BLOOD COUNT 7.66 K/ul (4.2-10.2)
[2020-12-22 05:40] LABS: ALANINE AMINOTRANSFERASE 14.2 U/L (0-50); ALBUMIN 3.68 g/dL (3.5-5.0); ALKALINE PHOSPHATASE 42.1 U/L (56-119); ASPARTATE AMINO TRANSFERASE 19.2 U/L (17-59); BILIRUBIN,TOTAL 0.44 mg/dL (0.2-1.3); BLOOD UREA NITROGEN 25.3 mg/dL (9-20); CALCIUM 8.91 mg/dL (8.4-10.2); CARBON DIOXIDE 25.9 mmol/L (22-30.0); CHLORIDE 99.1 mmol/L (98-107); CREATININE 1.17 mg/dL (0.60-1.10); GLUCOSE 114.5 mg/dL (74-106); POTASSIUM 4.42 mmol/L (3.5-5.1); SODIUM 132.6 mmol/L (134.5-145); TOTAL PROTEIN 6.17 g/dL (6.3-8.2)
[2020-12-22] MEDS: SOLU-CORTEF 250 MG IVP SCH ×3 (05:48→20:56)
[2020-12-22] MEDS: PROTONIX PO SCH (05:49)
[2020-12-22] MEDS: LASIX TAB PO SCH (05:49)
[2020-12-22] MEDS: MIRALAX PO SCH (09:29)
[2020-12-22] MEDS: COREG PO SCH ×2 (09:30→17:18)
[2020-12-22] MEDS: MUCINEX PO SCH ×2 (09:30→20:25)
[2020-12-22] MEDS: MINOXIDIL PO SCH ×2 (09:31→20:25)
[2020-12-22] MEDS: XANAX PO SCH ×2 (09:31→20:26)
[2020-12-22] MEDS: MICRO-K CAP PO SCH (09:31)
[2020-12-22] MEDS: CATAPRES PO SCH ×3 (09:31→20:25)
[2020-12-22] MEDS: ROCEPHIN 1 GM/50 ML D5W 1 GM/50 ML BAG IV SCH (09:32)
[2020-12-22] MEDS: LEXAPRO PO SCH (09:32)
[2020-12-22] MEDS: COZAAR PO SCH (09:32)
[2020-12-22] MEDS: NON-FORMULARY MEDICATION (Tiotropium-Olodaterol [Stiolto Respimat] 4 GM mist) IH SCH (09:35)
--- NOTE | 2020-12-22 09:37 | PCM.PROG ---
Attending Provider: ATTENDING PROVIDER: Dr. HAILEY SCHULTE This patient is seen with Debbie Garcia, Nurse Practitioner. DATE OF SERVICE: 12/22/20 SUBJECTIVE: This 80 year old /WHITE M was hospitalized 12/19/20. The patient is resting comfortably. Cough has improved. Light brown sputum, no bright blood. He has been up and about feeling better. Eating well. REVIEW OF SYSTEMS: CONSTITUTIONAL: No night sweats. No fatigue, malaise, lethargy. No fever or chills. HEENT: Eyes: No visual changes. No eye pain. No eye discharge. ENT: No runny nose. No epistaxis. No sinus pain. No odynophagia. No congestion. RESPIRATORY: Cough, no congestion. No hemoptysis. Shortness of breath. CARDIOVASCULAR: No angina symptoms. No CHF symptoms. No atypical chest pain for CAD. No palpitations. No orthopnea.. GASTROINTESTINAL: No abdominal pain. No nausea or vomiting. No diarrhea or con stipation. No hematemesis. No hematochezia. GENITOURINARY: No urgency. No frequency. No dysuria. No hematuria. No obstructive symptoms. No discharge. No pain. No significant abnormal bleeding. MUSCULOSKELETAL: No musculoskeletal pain; no joint swelling. NEUROLOGICAL: Awake, alert, oriented to time, place and person. No headache. No neck pain. No syncope. No seizures. No dizziness. PSYCHIATRIC: Not anxious. No depression. No suicidal thoughts. No homicidal thoughts. SKIN: No rash. No lesions. No wounds. ENDOCRINE: No unexplained weight loss. No weight gain. HEMATOLOGIC/LYMPHATIC: No anemia. No purpura. No petechiae. No prolonged or excessive bleeding. No palpable lymph nodes. PHYSICAL EXAMINATION: GENERAL: The patient is awake, alert and oriented, sitting in bed in no distress. VITAL SIGNS: Temperature 98.4 F, Pulse 77, Respiratory Rate 18, BP 141/73, Pulse Ox 94% HEENT: Head normocephalic, atraumatic. Eyes: Extraocular muscles are intact. Pupils are equal, round and reactive to light and accommodation. Ears: No lesions. Nose appeared normal. Throat: No exudate or erythema. NECK: Supple. No JVD, no carotid bruit. No lymphadenopathy or thyromegaly. LUNGS: Diminished breath sounds. Clear to auscultation. Percussion note normal. Chest symmetrical. HEART: S1, S2, no S3. No murmurs. No cyanosis or clubbing. No ascites. Pulses: Dorsalis pedis and posterior tibial pulses +1 to +2 both sides. ABDOMEN: Soft. Non-tender. Bowel sounds active. No CVA tenderness. No mass felt. EXTREMITIES: No edema. Full range of motion of all extremities, equal. NEUROLOGIC: No focal deficit. Cranial nerves II through XII are grossly intact. No headache. No double vision. SKIN: Not dry. Intact. Turgor-normal. LYMPHATIC: No palpable lymph nodes/no lymphedema. MUSCULOSKELETAL: Normal joints with no swelling. Muscle tone is normal. LAB REVIEW: 12/22/20 04:58 12/22/20 04:58 12/22/20 04:58: Sodium 132.6 L, Potassium 4.42, Chloride 99.1, Carbon Dioxide 25.9, Anion Gap 12.02, BUN 25.3 H, Creatinine 1.17 H, Estimated GFR (MDRD) 60.00, BUN/Creatinine Ratio 21.62, Glucose 114.5 H, Calcium 8.91, Total Bilirubin 0.44, AST 19.2, ALT 14.2, Alkaline Phosphatase 42.1 L, Total Protein 6.17 L, Albumin 3.68, Globulin 2.49, Albumin/Globulin Ratio 1.47 12/22/20 04:58: WBC 7.66, RBC 4.08 L, Hgb 13.0 L, Hct 38.1 L, MCV 93.4, MCH 31.9 H, MCHC 34.1, RDW Coeff of Bhaskar 13.0, Plt Count 158, Immature Gran % (Auto) 0.5, Neut % (Auto) 76.9 H, Lymph % (Auto) 17.5, [place] % (Auto) 5.0, Eos % (Auto) 0.0, Baso % (Auto) 0.1, Neut # (Auto) 5.9, Lymph # (Auto) 1.3, [place] # (Auto) 0.4, Eos # (Auto) 0.0, Baso # (Auto) 0.0, Immature Gran # (Auto) 0.0 ASSESSMENT: Please see below. 1. Bibasilar pneumonia 2. Endstage COPD 3. Chronic respiratory failure 4. Hemorrhoids PLAN: 1. Continue Rocephin 2. Start Prednisone 20mg BID tomorrow 3. Discontinue Solu-Medrol tomorrow 4. Anticipate discharge tomorrow. Plan and coordination of the patient's care discussed in the presence of Sales Clerk Supervisor and nurse. SCRIBED BY: Valentin VELEZ scribed while in presence of service performed by Dr. Schulte/Debbie Garcia APRN on 12/22/20 (20)
[2020-12-22] MEDS: FLONASE NAS SCH ×2 (09:38→20:26)
[2020-12-22] MEDS: LOTRISONE 45 GM TP SCH ×2 (09:38→20:26)
[2020-12-22] MEDS: ANUCORT-HC RC PRN ×3 (10:00→21:49)
--- NOTE | 2020-12-22 13:14 | PN ---
DATE OF SERVICE: 12/19/2020 SUBJECTIVE: The patient was seen and examined today in the room with Nurse Practitioner. The patient's condition is stable. He is respiratory failure with pO2 of 52-53. pO2 has gone up to 70 with pCO2 of 49 and pH 7.33. He is in chronic respiratory acidosis. The patient has shortness of breath on minimal exertion. Chest x-ray shows possibility of bilateral pneumonia. The patient is going to be on Rocephin and Zithromax with steroids. History and Physical was done with Nurse Practitioner with the plan made out. CONDITIONS: Stable. COVID Negative. TIME SPENT: More than 30 minutes. Plan and coordination of the patient's care discussed in the presence of nurse. NITIN
--- NOTE | 2020-12-22 14:46 | PN ---
DATE OF SERVICE: 12/20/2020 SUBJECTIVE: The patient was seen and examined with the Nurse Practitioner. The patient's condition has improved. Oxygenation has improved. Continue antibiotics, steroids and NEBS. We will encourage the patient to walk. TIME SPENT: More than 30 minutes. Plan and coordination of the patient's care discussed in the presence of nurse. NITIN
[2020-12-22] MEDS: FLOMAX PO SCH (20:26)
[2020-12-22] MEDS: NORVASC PO SCH (20:26)
[2020-12-23] MEDS: ALBUTEROL 0.083% NEB NEB SCH (04:40)
[2020-12-23] MEDS: PULMICORT 0.5 MG/2 ML NEB SCH (04:40)
[2020-12-23 05:22] VITALS: BP 153/82; TEMP 97.7
[2020-12-23] MEDS: PROTONIX PO SCH (05:39)
[2020-12-23] MEDS: LASIX TAB PO SCH (05:39)
[2020-12-23 06:04] LABS: BASOPHILS % (AUTO) 0.3 % (0.0-3.0); HEMATOCRIT 43.7 % (42.0-52.0); HEMOGLOBIN 14.9 g/dl (14.0-18.0); IMMATURE GRANULOCYTE # (AUTO) 0.1 (0.0-1.0); IMMATURE GRANULOCYTE % (AUTO) 0.9 % (0.0-5.0); LYMPHOCYTES # (AUTO) 1.4 K/uL (0.60-3.4); LYMPHOCYTES % (AUTO) 20.8 (10.0-50.0); MEAN CORPUSCULAR HEMOGLOBIN 31.6 pg (27.0-31.0); MEAN CORPUSCULAR HGB CONC 34.1 (31.8-35.4); MEAN CORPUSCULAR VOLUME 92.6 fl (80.0-94.0); MONOCYTES # (AUTO) 0.5 K/uL (0.4-2.0); MONOCYTES % (AUTO) 6.5 (0-10); NEUTROPHILS # (AUTO) 4.9 K/ul (2.0-6.9); NEUTROPHILS % (AUTO) 71.5 % (42.2-75.2); PLATELET COUNT 184 10^3/uL (140-440); RDW COEFFICIENT OF VARIATION 12.9 % (11.6-14.8); RED BLOOD COUNT 4.72 10^6/ul (4.70-6.10); WHITE BLOOD COUNT 6.88 K/ul (4.2-10.2)
[2020-12-23 06:21] LABS: ALANINE AMINOTRANSFERASE 18.5 U/L (0-50); ALBUMIN 4.39 g/dL (3.5-5.0); ALKALINE PHOSPHATASE 48.6 U/L (56-119); ASPARTATE AMINO TRANSFERASE 21.8 U/L (17-59); BILIRUBIN,TOTAL 0.59 mg/dL (0.2-1.3); BLOOD UREA NITROGEN 26.7 mg/dL (9-20); CALCIUM 9.5 mg/dL (8.4-10.2); CARBON DIOXIDE 27.3 mmol/L (22-30.0); CHLORIDE 98.4 mmol/L (98-107); CREATININE 1.16 mg/dL (0.60-1.10); GLUCOSE 104.3 mg/dL (74-106); POTASSIUM 4.27 mmol/L (3.5-5.1); SODIUM 135.7 mmol/L (134.5-145); TOTAL PROTEIN 7.17 g/dL (6.3-8.2)
[2020-12-23] MEDS ORDERED: PREDNISONE PO SCH (08:30)
[2020-12-23] MEDS: LOTRISONE 45 GM TP SCH (09:02)
[2020-12-23] MEDS: XANAX PO SCH (09:09)
[2020-12-23] MEDS: CATAPRES PO SCH (09:10)
[2020-12-23] MEDS: MINOXIDIL PO SCH (09:11)
[2020-12-23] MEDS: COREG PO SCH (09:11)
[2020-12-23] MEDS: MUCINEX PO SCH (09:12)
[2020-12-23] MEDS: LEXAPRO PO SCH (09:12)
[2020-12-23] MEDS: COZAAR PO SCH (09:12)
[2020-12-23] MEDS: MICRO-K CAP PO SCH (09:12)
[2020-12-23] MEDS: ROCEPHIN 1 GM/50 ML D5W 1 GM/50 ML BAG IV SCH (09:13)
[2020-12-23] MEDS: FLONASE NAS SCH (09:14)
[2020-12-23] MEDS: MIRALAX PO SCH (09:14)
[2020-12-23] MEDS: NON-FORMULARY MEDICATION (Tiotropium-Olodaterol [Stiolto Respimat] 4 GM mist) IH SCH (09:15)
--- NOTE | 2020-12-23 11:25 | PCM.PROG ---
Attending Provider: ATTENDING PROVIDER: Dr. HAILEY SCHULTE DATE OF SERVICE: 12/23/20 SUBJECTIVE: This 80 year old /WHITE M was hospitalized 12/19/20 with pneumonitis/bronchitis. The patient's condition has improved. Oxygen saturation is staying in 90s then with exertion below 90 and knows about it. The patient's appetite has increased. Strength has increased He has been up and about on his own. Needs continuous oxygen less when resting. REVIEW OF SYSTEMS: CONSTITUTIONAL: No night sweats. No fatigue, malaise, lethargy. No fever or chills. HEENT: Eyes: No visual changes. No eye pain. No eye discharge. ENT: No runny nose. No epistaxis. No sinus pain. No odynophagia. No congestion. RESPIRATORY: Mild cough, no congestion. No hemoptysis. No shortness of breath. CARDIOVASCULAR: No angina symptoms. No CHF symptoms. No atypical chest pain for CAD. No palpitations. No orthopnea.. GASTROINTESTINAL: No abdominal pain. No nausea or vomiting. No diarrhea or constipation. No hematemesis. No hematochezia. GENITOURINARY: No urgency. No frequency. No dysuria. No hematuria. No obstructive symptoms. No discharge. No pain. No significant abnormal bleeding. MUSCULOSKELETAL: No musculoskeletal pain; no joint swelling. NEUROLOGICAL: Awake, alert, oriented to time, place and person. No headache. No neck pain. No syncope. No seizures. No dizziness. PSYCHIATRIC: Not anxious. No depression. No suicidal thoughts. No homicidal thoughts. SKIN: No rash. No lesions. No wounds. ENDOCRINE: No unexplained weight loss. No weight gain. HEMATOLOGIC/LYMPHATIC: No anemia. No purpura. No petechiae. No prolonged or excessive bleeding. No palpable lymph nodes. PHYSICAL EXAMINATION: GENERAL: The patient is awake, alert and oriented, Sitting in bed in no dis tress. VITAL SIGNS: Temperature 97.7 F, Pulse 73, Respiratory Rate 20, BP 153/82, Pulse Ox 97% HEENT: Head normocephalic, atraumatic. Eyes: Extraocular muscles are intact. Pupils are equal, round and reactive to light and accommodation. Ears: No lesions. Nose appeared normal. Throat: No exudate or erythema. NECK: Supple. No JVD, no carotid bruit. No lymphadenopathy or thyromegaly. LUNGS: Decreased breath sounds. Clear to auscultation. Percussion note normal. Chest symmetrical. HEART: S1, S2, no S3. No murmurs. No cyanosis or clubbing. No ascites. Pulses: Dorsalis pedis and posterior tibial pulses +1 to +2 both sides. ABDOMEN: Soft. Non-tender. Bowel sounds active. No CVA tenderness. No mass felt. EXTREMITIES: No edema. Full range of motion of all extremities, equal. NEUROLOGIC: No focal deficit. Cranial nerves II through XII are grossly intact. No headache, no double vision or headache. SKIN: Warm and dry. Intact. Turgor-normal. LYMPHATIC: No palpable lymph nodes/no lymphedema. MUSCULOSKELETAL: Normal joints with no swelling. Muscle tone is normal. LAB REVIEW: 12/23/20 05:03 12/23/20 05:03 12/23/20 05:03: Sodium 135.7, Potassium 4.27, Chloride 98.4, Carbon Dioxide 27.3, Anion Gap 14.27, BUN 26.7 H, Creatinine 1.16 H, Estimated GFR (MDRD) 60.00, BUN/Creatinine Ratio 23.01, Glucose 104.3, Calcium 9.50, Total Bilirubin 0.59, AST 21.8, ALT 18.5, Alkaline Phosphatase 48.6 L, Total Protein 7.17, Albumin 4.39, Globulin 2.78, Albumin/Globulin Ratio 1.57 12/23/20 05:03: WBC 6.88, RBC 4.72, Hgb 14.9, Hct 43.7, MCV 92.6, MCH 31.6 H, MCHC 34.1, RDW Coeff of Bhaskar 12.9, Plt Count 184, Immature Gran % (Auto) 0.9, Neut % (Auto) 71.5, Lymph % (Auto) 20.8, Yancey % (Auto) 6.5, Eos % (Auto) 0.0, Baso % (Auto) 0.3, Neut # (Auto) 4.9, Lymph # (Auto) 1.4, [place]ancey # (Auto) 0.5, Eos # (Auto) 0.0, Baso # (Auto) 0.0, Immature Gran # (Auto) 0.1 ASSESSMENT: Please see below. 1. Bilateral pneumonia with respiratory failure seems to be under control 2. Chronic respiratory failure 3. Coronary artery disease 4. Hypertension 5. Dyslipidemia PLAN: 1. Discharge home on antibiotics and steroids 2. Continue NEBS at home 3. Oxygen continuous at home 4. COVID negative Plan and coordination of the patient's care discussed in the presence of Coloring Room Worker and nurse. CONDITION: Stable SCRIBED BY: Merced VELEZist scribed while in presence of service performed by Dr. HAILEY SCHULTE on 12/23/20 ([id number])
--- NOTE | 2020-12-23 11:44 | DS ---
DATE OF SERVICE: 12/23/2020 FINAL DIAGNOSIS: BIBASILAR PNEUMONIA ENDSTAGE COPD- OXYGEN DEPENDENT CHRONIC RESPIRATORY FAILURE HEMORRHOIDS PNEUMONIA, RML PER CXR CHRONIC KIDNEY DISEASE, STAGE 2-3 CORONARY ARTERY DISEASE WITH STENT HYPERTENSION PALPITATIONS ANXIETY SECONDARY POLYCYTHEMIA (HISTORY OF THERAPEUTIC PHLEBOTOMY) SLEEP APNEA, USES TRILOGY BENIGN PROSTATIC HYPERTROPHY (DR. 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 NEGRON)) ECHOCARDIOGRAM COMPLETED 10/17/2020 LAST VITALS: Temp Pulse Resp BP Pulse Ox 97.7 F 73 20 153/82 H 91 L 12/23/20 05:21 12/23/20 05:21 12/23/20 05:21 12/23/20 05:21 12/23/20 10:00 DISCHARGE INSTRUCTIONS: DISCHARGE: HOME TODAY, LIVES ALONE INDEPENDENTLY, DTR LIVES NEARBY. OXYGEN : USE 3 L/M PER N/C CONTINUOS, INCREASE NO HIGHER THAN 5 L/M PER ACTIVITY THEN TURN BACK DOWN TO 3 L/M PER N/C. NEBULIZERS ORDERED, SMART VEST ORDERED, TRILOGY SYSTEM AT NIGHT DIRECTED PER MAXIMUS, . FOLLOW UP: SEE DR. SCHULTE/ HERNESTO ANDERSON APRN/ LUIS HERNANDES APRN IN THE OFFICE ON WEDNESDAY, DECEMBER 30, 2020 @ [id number]. TO [address] DR[address] MAR AT THE RESPIRATORY CLINIC AT [facility] ORDERED. CODE STATUS: DO NOT RESUSCITATE. TAKE THESE MEDICATIONS AT HOME: Albuterol Sulfate (Albuterol Sulfate 0.083% Vial.Neb) 2.5 mg NEB RTTID [facility] Last Admin: 12/23/20 04:40 Dose: 2.5 mg Albuterol Sulfate (Albuterol Sulfate (Ventolin Hfa) 18 Gm 1 Puff With Spacer) 2 puff IH Q4-6H PRN PRN Reason: Bronchodialation Alprazolam (Alprazolam 0.5 Mg Tablet) 0.5 mg PO BID [facility] Last Admin: 12/23/20 09:09 Dose: 0.5 mg Amlodipine Besylate (Amlodipine Besylate 5 Mg Tablet) 5 mg PO BEDTIME [facility] Last Admin: 12/22/20 20:26 Dose: 5 mg Aspirin (Aspirin 81 Mg Tablet.Dr) 81 mg PO BEDTIME [facility] Last Admin: 12/19/20 20:29 Dose: 81 mg Budesonide (Budesonide 0.5 Mg/2 Ml Vial.Neb) 0.5 mg NEB DAILY [facility] Last Admin: 12/23/20 04:40 Dose: 0.5 mg Carvedilol (Carvedilol 6.25 Mg Tablet) 6.25 mg PO BIDWM [facility] Last Admin: 12/23/20 09:11 Dose: 6.25 mg Clonidine (Clonidine Hcl 0.1 Mg Tablet) 0.1 mg PO TID [facility] Last Admin: 12/23/20 09:10 Dose: 0.1 mg Clotrimazole (Clotrimazole/Betamethasone 45 Gm Cream) 1 applic TP BID [facility] Last Admin: 12/23/20 09:02 Dose: Not Given Escitalopram Oxalate (Escitalopram Oxalate 10 Mg Tablet) 10 mg PO DAILY [facility] Last Admin: 12/23/20 09:12 Dose: 10 mg Fluticasone Propionate (Fluticasone Propionate 16 Gm Nasal [place]) 2 spray MICHAEL BID [facility] -- ( NEW) Last Admin: 12/23/20 09:14 Dose: 2 spray Furosemide (Furosemide 20 Mg Tablet) 20 mg PO QDAC [facility] Last Admin: 12/23/20 05:39 Dose: 20 mg Guaifenesin (Guaifenesin 600 Mg Tablet.Er) 600 mg PO BID [facility] Last Admin: 12/23/20 09:12 Dose: 600 mg Hydrocortisone Acetate (Hydrocortisone Acetate 25 Mg Supp.Rect) 1 supp RC TID PRN PRN Reason: Hemorrhoids Last Admin: 12/22/20 21:49 Dose: 1 supp Losartan Potassium (Losartan Potassium 100 Mg Tablet) 100 mg PO DAILY [facility] Last Admin: 12/23/20 09:12 Dose: 100 mg Minoxidil (Minoxidil 2.5 Mg Tablet) 5 mg PO BID [facility] Last Admin: 12/23/20 09:11 Dose: 5 mg Non-Formulary Medication (Tiotropium-Olodaterol [Stiolto Respimat]) 2 puff IH DAILY [facility] Last Admin: 12/23/20 09:15 Dose: 2 puff Non-Formulary Medication (Peg 400-Propylene Glycol [Systane (Propylene Glycol)]) 1 drop EACHEYE 5XD PRN PRN Reason: Dry Eye Pantoprazole Sodium (Pantoprazole Sodium 40 Mg Tablet.Dr) 40 mg PO QDAC [facility] Last Admin: 12/23/20 05:39 Dose: 40 mg Polyethylene Glycol (Polyethylene Glycol 17 Gm Powd.Pack) 17 gm PO DAILY [facility] Last Admin: 12/23/20 09:14 Dose: 17 gm Potassium Chloride (Potassium Chloride 10 Meq Capsule.Er) 10 meq PO DAILYWM [facility] Last Admin: 12/23/20 09:12 Dose: 10 meq Prednisone (Prednisone 20 Mg Tablet) 10 mg PO BIDWM X 5 DAYS , 10 MG PO DAILY X 5 DAYS THEN STOP -- ( NEW) Last Admin: 12/23/20 09:13 Dose: 20 mg Tamsulosin HCl (Tamsulosin Hcl 0.4 Mg Cap.Er.24h) 0.8 mg PO BEDTIME [facility] Last Admin: 12/22/20 20:26 Dose: 0.8 mg OMNICEF 300 MG PO BID X 5 DAYS ( TO START 12/24/2020) -- ( NEW) ALLERGIES: levofloxacin [From Levaquin] Adverse Reaction (Unknown, Verified 12/19/20 08:25) Unknown DISCONTINUED MEDICATIONS: NONE NEW PRESCRIPTIONS: 1). FLONASE ( Fluticasone Propionate) 2 spray MICHAEL BID 2). PREDNISONE 10 mg PO BIDWM X 5 DAYS , 10 MG PO DAILY X 5 DAYS THEN STOP 3). OMNICEF 300 MG PO BID X 5 DAYS ( TO START 12/24/2020) SMOKING: N/A DISEASE SPECIFIC EDUCATION: PNEUMONIA COPD OXYGEN HEMORRHOIDS COVID PRECAUTIONS LAB REVIEW: 12/23/20 05:03 12/23/20 05:03 12/23/20 05:03: Sodium 135.7, Potassium 4.27, Chloride 98.4, Carbon Dioxide 27.3, Anion Gap 14.27, BUN 26.7 H, Creatinine 1.16 H, Estimated GFR (MDRD) 60.00, BUN/Creatinine Ratio 23.01, Glucose 104.3, Calcium 9.50, Total Bilirubin 0.59, AST 21.8, ALT 18.5, Alkaline Phosphatase 48.6 L, Total Protein 7.17, Albumin 4.39, Globulin 2.78, Albumin/Globulin Ratio 1.57 12/23/20 05:03: WBC 6.88, RBC 4.72, Hgb 14.9, Hct 43.7, MCV 92.6, MCH 31.6 H, MCHC 34.1, RDW Coeff of Bhaskar 12.9, Plt Count 184, Immature Gran % (Auto) 0.9, Neut % (Auto) 71.5, Lymph % (Auto) 20.8, [place] % (Auto) 6.5, Eos % (Auto) 0.0, Baso % (Auto) 0.3, Neut # (Auto) 4.9, Lymph # (Auto) 1.4, [place] # (Auto) 0.5, Eos # (Auto) 0.0, Baso # (Auto) 0.0, Immature Gran # (Auto) 0.1 ACTIVITY: UP TOLERATED. GET UP THROUGHOUT THE DAY WITH FREQUENT REST PERIODS. STAY HOME AND INDOORS UNTIL RELEASED BY DOCTOR. WEAR A FACIAL COVERING AND RECOGNIZE SOCIAL DISTANCING IF HAVE TO GET OUT. DIET: HEART HEALTHY , 2 GRAM NA HOSPITAL COURSE: 68 year old male hospitalized with COVID negative pneumonia. The patient has history of chronic respiratory failure this time with bilateral pneumonia. The patient had intermittent hemoptysis. CT scan was negative for any tumor. No CHF. Cardiovascular status is stable. He was treated with IV antibiotics and NEBS. His condition has improved. He will be discharged home in stable condition to be followed as an outpatient. He will be discharged on antibiotics and steroids. He will followup in the office in 5-7 days. His other problem is hemorrhoids for which he was seen by a surgeon and was advised to have followup. TIME SPENT: More than 60 minutes. NITIN
--- NOTE | 2020-12-23 11:47 | CM.DICTOOL ---
ADMISSION: 12/19/20 10:22 DISCHARGE: 12/23/2020 DATE OF SERVICE: 12/23/20 FINAL DIAGNOSIS BIBASILAR PNEUMONIA ENDSTAGE COPD- OXYGEN DEPENDENT CHRONIC RESPIRATORY FAILURE HEMORRHOIDS PNEUMONIA, RML PER CXR CHRONIC KIDNEY DISEASE, STAGE 2-3 CORONARY ARTERY DISEASE WITH STENT HYPERTENSION PALPITATIONS ANXIETY SECONDARY POLYCYTHEMIA (HISTORY OF THERAPEUTIC PHLEBOTOMY) SLEEP APNEA, USES TRILOGY BENIGN PROSTATIC HYPERTROPHY (DR. 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 NEGRON)) ECHOCARDIOGRAM COMPLETED 10/17/2020 LAST VITALS Temp Pulse Resp BP Pulse Ox 97.7 F 73 20 153/82 H 91 L 12/23/20 05:21 12/23/20 05:21 12/23/20 05:21 12/23/20 05:21 12/23/20 10:00 TAKE THESE MEDICATIONS AT HOME Albuterol Sulfate (Albuterol Sulfate 0.083% Vial.Marco) 2.5 mg NEB RTTID [facility] Last Admin: 12/23/20 04:40 Dose: 2.5 mg Albuterol Sulfate (Albuterol Sulfate (Ventolin Hfa) 18 Gm 1 Puff With Spacer) 2 puff IH Q4-6H PRN PRN Reason: Bronchodialation Alprazolam (Alprazolam 0.5 Mg Tablet) 0.5 mg PO BID [facility] Last Admin: 12/23/20 09:09 Dose: 0.5 mg Amlodipine Besylate (Amlodipine Besylate 5 Mg Tablet) 5 mg PO BEDTIME [facility] Last Admin: 12/22/20 20:26 Dose: 5 mg Aspirin (Aspirin 81 Mg Tablet.) 81 mg PO BEDTIME [facility] Last Admin: 12/19/20 20:29 Dose: 81 mg Budesonide (Budesonide 0.5 Mg/2 Ml Vial.Marco) 0.5 mg NEB DAILY [facility] Last Admin: 12/23/20 04:40 Dose: 0.5 mg Carvedilol (Carvedilol 6.25 Mg Tablet) 6.25 mg PO BIDWM [facility] Last Admin: 12/23/20 09:11 Dose: 6.25 mg Clonidine (Clonidine Hcl 0.1 Mg Tablet) 0.1 mg PO TID [facility] Last Admin: 12/23/20 09:10 Dose: 0.1 mg Clotrimazole (Clotrimazole/Betamethasone 45 Gm Cream) 1 applic TP BID [facility] Last Admin: 12/23/20 09:02 Dose: Not Given Escitalopram Oxalate (Escitalopram Oxalate 10 Mg Tablet) 10 mg PO DAILY [facility] Last Admin: 12/23/20 09:12 Dose: 10 mg Fluticasone Propionate (Fluticasone Propionate 16 Gm Nasal [place]) 2 spray MICHAEL BID [facility] -- ( NEW) Last Admin: 12/23/20 09:14 Dose: 2 spray Furosemide (Furosemide 20 Mg Tablet) 20 mg PO QDAC [facility] Last Admin: 12/23/20 05:39 Dose: 20 mg Guaifenesin (Guaifenesin 600 Mg Tablet.Er) 600 mg PO BID [facility] Last Admin: 12/23/20 09:12 Dose: 600 mg Hydrocortisone Acetate (Hydrocortisone Acetate 25 Mg Supp.Rect) 1 supp RC TID PRN PRN Reason: Hemorrhoids Last Admin: 12/22/20 21:49 Dose: 1 supp Losartan Potassium (Losartan Potassium 100 Mg Tablet) 100 mg PO DAILY [facility] Last Admin: 12/23/20 09:12 Dose: 100 mg Minoxidil (Minoxidil 2.5 Mg Tablet) 5 mg PO BID [facility] Last Admin: 12/23/20 09:11 Dose: 5 mg Non-Formulary Medication (Tiotropium-Olodaterol [Stiolto Respimat]) 2 puff IH DAILY [facility] Last Admin: 12/23/20 09:15 Dose: 2 puff Non-Formulary Medication (Peg 400-Propylene Glycol [Systane (Propylene Glycol)]) 1 drop EACHEYE 5XD PRN PRN Reason: Dry Eye Pantoprazole Sodium (Pantoprazole Sodium 40 Mg Tablet.Dr) 40 mg PO QDAC [facility] Last Admin: 12/23/20 05:39 Dose: 40 mg Polyethylene Glycol (Polyethylene Glycol 17 Gm Powd.Pack) 17 gm PO DAILY [facility] Last Admin: 12/23/20 09:14 Dose: 17 gm Potassium Chloride (Potassium Chloride 10 Meq Capsule.Er) 10 meq PO DAILYWM [facility] Last Admin: 12/23/20 09:12 Dose: 10 meq Prednisone (Prednisone 20 Mg Tablet) 10 mg PO BIDWM X 5 DAYS , 10 MG PO DAILY X 5 DAYS THEN STOP -- ( NEW) Last Admin: 12/23/20 09:13 Dose: 20 mg Tamsulosin HCl (Tamsulosin Hcl 0.4 Mg Cap.Er.24h) 0.8 mg PO BEDTIME [facility] Last Admin: 12/22/20 20:26 Dose: 0.8 mg OMNICEF 300 MG PO BID X 5 DAYS ( TO START 12/24/2020) -- ( NEW) ALLERGIES levofloxacin [From Levaquin] Adverse Reaction (Unknown, Verified 12/19/20 08:25) Unknown DISCONTINUED MEDICATIONS NONE NEW PRESCRIPTIONS: 1). FLONASE ( Fluticasone Propionate) 2 spray MICHAEL BID 2). PREDNISONE 10 mg PO BIDWM X 5 DAYS , 10 MG PO DAILY X 5 DAYS THEN STOP 3). OMNICEF 300 MG PO BID X 5 DAYS ( TO START 12/24/2020) SMOKING: N/A DISEASE SPECIFIC EDUCATION: PNEUMONIA COPD OXYGEN HEMORRHOIDS COVID PRECAUTIONS LAB REVIEW: 12/23/20 05:03 12/23/20 05:03 12/23/20 05:03: Sodium 135.7, Potassium 4.27, Chloride 98.4, Carbon Dioxide 27.3, Anion Gap 14.27, BUN 26.7 H, Creatinine 1.16 H, Estimated GFR (MDRD) 60.00, BUN/Creatinine Ratio 23.01, Glucose 104.3, Calcium 9.50, Total Bilirubin 0.59, AST 21.8, ALT 18.5, Alkaline Phosphatase 48.6 L, Total Protein 7.17, Albumin 4.39, Globulin 2.78, Albumin/Globulin Ratio 1.57 12/23/20 05:03: WBC 6.88, RBC 4.72, Hgb 14.9, Hct 43.7, MCV 92.6, MCH 31.6 H, MCHC 34.1, RDW Coeff of Bhaskar 12.9, Plt Count 184, Immature Gran % (Auto) 0.9, Neut % (Auto) 71.5, Lymph % (Auto) 20.8, [place] % (Auto) 6.5, Eos % (Auto) 0.0, Baso % (Auto) 0.3, Neut # (Auto) 4.9, Lymph # (Auto) 1.4, [place] # (Auto) 0.5, Eos # (Auto) 0.0, Baso # (Auto) 0.0, Immature Gran # (Auto) 0.1 PLAN: DISCHARGE: HOME TODAY, LIVES ALONE INDEPENDENTLY, DTR LIVES NEARBY ACTIVITY: UP TOLERATED. GET UP THROUGHOUT THE DAY WITH FREQUENT REST PERIODS. STAY HOME AND INDOORS UNTIL RELEASED BY DOCTOR. WEAR A FACIAL COVERING AND RECOGNIZE SOCIAL DISTANCING IF HAVE TO GET OUT. DIET: HEART HEALTHY , 2 GRAM NA OXYGEN : USE 3 L/M PER N/C CONTINUOS, INCREASE NO HIGHER THAN 5 L/M PER A CTIVITY THEN TURN BACK DOWN TO 3 L/M PER N/C. NEBULIZERS ORDERED, SMART VEST ORDERED, TRILOGY SYSTEM AT NIGHT DIRECTED PER MAXIMUS, FOLLOW UP: SEE DR. SCHULTE/ HERNESTO ANDERSON APRN/ LUIS HERNANDES APRN IN THE OFFICE ON WEDNESDAY, DECEMBER 30, 2020 @ [id number] MAR AT THE RESPIRATORY CLINIC AT [facility] ORDERED CODE STATUS: DO NOT RESUSCITATE MR. DELGADO IS ALERT AND ORIENTED X 4. HE IS UP TOLERATED WITHOUT ANY ASSISTIVE DEVICE. HE IS DEPENDENT ON OXYGEN AT 3 L/M PER N/C CONTINUOUS AND TURNS IT UP TO 5 L/M PER N/C WITH ACTIVITY. HE ALSO USES A TRILOGY BIPAP AT NIGHT. HE HAS REPORTED TIMES OF PAIN TO HEMMOHROIDS, USES SUPPOSITORIES AND OFF LOADING, HAS SEEN SURGEON AND NOT A CANDIDATE FOR SURGERY DUE TO COPD. CONTINENT OF BOWEL AND BLADDER. BOWEL MOVEMENTS HAVE REMAINED SOFT. LAST BM 12/22/2020. HE HAS CONTINUED TO HAVE AN EXCELLENT APPETITE WITH 100 % CONSUMPTION OF MEALS. HE LIVES ALONE AND DTR LIVES NEARBY AND ASSIST WHEN NEEDED. MD HERNESTO CISSE APRN ALYCE HANNAN, APRN
--- NOTE | 2020-12-23 13:21 | PN ---
DATE OF SERVICE: 12/21/2020 SUBJECTIVE: 80 year old white male hospitalized with bilateral pneumonia. The patient is COVID negative. He is feeling a lot better. When he is not doing anything 3 liters oxygen saturation 93-94%. Up and about the oxygen saturation drops and it take 5 liters. The patient had difficulty taking breath from the nose from nasal congestion. REVIEW OF SYSTEMS: CONSTITUTIONAL: No night sweats. No fatigue, malaise, lethargy. No fever or chills. HEENT: Eyes: No visual changes. No eye pain. No eye discharge. ENT: No runny nose. No epistaxis. No sinus pain. No sore throat. No odynophagia. No congestion. RESPIRATORY: No cough, no congestion. Hemoptysis. No shortness of breath. CARDIOVASCULAR: No angina symptoms. No CHF symptoms. No atypical chest pain for CAD. No palpitations. No PND. No orthopnea. GASTROINTESTINAL: No abdominal pain. No nausea or vomiting. No diarrhea or constipation. No hematemesis. No hematochezia. GENITOURINARY: No urgency. No frequency. No dysuria. No hematuria. No obstructive symptoms. No discharge. No pain. No significant abnormal bleeding. MUSCULOSKELETAL: No musculoskeletal pain; no joint swelling. NEUROLOGICAL: No headache. No neck pain. No syncope. No seizures. No dizziness. PSYCHIATRIC: Not anxious. No depression. No suicidal thoughts. No homicidal thoughts. SKIN: No rash. No lesions. No wounds. ENDOCRINE: No unexplained weight loss. No weight gain. HEMATOLOGIC/LYMPHATIC: No anemia. No purpura. No petechiae. No prolonged or excessive bleeding. No palpable lymph nodes. PHYSICAL EXAMINATION: VITAL SIGNS: Temperature 97.8, pulse 78, respiratory rate 18, blood pressure 137/77, pulse ox 96%. HEENT: Head normocephalic, atraumatic. Eyes: Extraocular muscles are intact. Pupils are equal, round and reactive to light and accommodation. Ears: No lesions. Nose appeared normal. Throat: No exudate or erythema. NECK: Supple. No JVD, no carotid bruit. No lymphadenopathy or thyromegaly. LUNGS: Decreased breath sounds with good air entry. Clear to auscultation. Percussion note normal. Chest symmetrical. HEART: S1, S2, no S3. No murmurs. No cyanosis or clubbing. No ascites. Pulses: Dorsalis pedis and posterior tibial pulses +1 to +2 bilaterally. ABDOMEN: Soft. Nontender. Bowel sounds active. No CVA tenderness. No mass felt. EXTREMITIES: No edema. Full range of motion of all extremities, equal. NEUROLOGIC: No focal deficit. Cranial nerves II through XII are grossly intact. No headache. No double vision. SKIN: Not dry. Intact. Turgor - normal. LYMPHATIC: No palpable lymph nodes/no lymphedema. MUSCULOSKELETAL: Normal joints with no swelling. Muscle tone is normal. LABS: Hgb 14, hct 41, WBC 9,000 normal differential, creatinine 1.1, BUN 21, potassium 4. ASSESSMENT: 1. Acute respiratory failure with bilateral pneumonia seems to be under control 2. Hemoptysis from bronchitis PLAN: 1. Advised to give Flonase to open up the nasal congestion 2. Continue to use normal saline 3. CT of the chest does not show any evidence of any malignancy TIME SPENT: More than 30 minutes. Plan and coordination of the patient's care discussed in the presence of nurse. NITIN
--- NOTE | 2020-12-23 13:44 | PN ---
DATE OF SERVICE: 12/22/2020 SUBJECTIVE: The patient was seen and examined with the Nurse Practitioner. The patient's respiratory status has improved. At time he is on 2-3 liters while he is resting. During exertion the saturation goes down and he goes up to 4-5 liters and manages it. Condition improving. TIME SPENT: More than 30 minutes. Plan and coordination of the patient's care discussed in the presence of nurse. NITIN
--- NOTE | 2021-01-04 10:01 | HP ---
DATE OF SERVICE: 12/19/2020 REASON FOR HOSPITALIZATION/HISTORY OF PRESENT ILLNESS: 80 year old white male who presented to the emergency room complaining of shortness of breath. It had been worse since about 3 that morning. He is on 5 liters nasal canula at home. He is coughing. He has had his vaccine. 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 No fatigue, malaise, lethargy. No fever or chills. HEENT: Eyes: No visual changes. No eye pain. No eye discharge. ENT: No runny nose. No epistaxis. No sinus pain. No sore throat. No odynophagia. No ear pain. No congestion. RESPIRATORY: Cough, no congestion. No hemoptysis. Shortness of breath. Wheezing. CARDIOVASCULAR: No angina symptoms. No CHF symptoms. No atypical chest pain for CAD. No palpitations. No PND. No orthopnea. GASTROINTESTINAL: No abdominal pain. No nausea or vomiting. No diarrhea or constipation. No hematemesis. No hematochezia. GENITOURINARY: No urgency. No frequency. No dysuria. No hematuria. No obstructive symptoms. No discharge. No pain. No significant abnormal bleeding. MUSCULOSKELETAL: No musculoskeletal pain. No joint swelling. No arthritis. NEUROLOGICAL: No headache. No neck pain. No syncope. No seizures. No dizziness. PSYCHIATRIC: Anxious. No depression. No suicidal thoughts. No homicidal thoughts. SKIN: No rash. No lesions. No wounds. ENDOCRINE: No unexplained weight loss. No weight gain. HEMATOLOGIC/LYMPHATIC: No anemia. No purpura. No petechiae. No prolonged or excessive bleeding. No palpable lymph nodes. PERSONAL/FAMILY/SOCIAL HISTORY: He is . Lives at home by himself. Performs all ADL's. Does not smoke. No alcohol or illicit drug use. He did smoke years ago. MEDICATIONS: Aspirin 81mg PO BEDTIME Escitalopram 10mg PO daily Tamsulosin 0.8mg PO BEDTIME Stiolto Respimat 2 puff inhalation daily Ventolin two puff inhalation Q 4-6 hours PRN Protonix 40mg PO daily Albuterol sulfate one vial NEB TID Budesonide 0.5mg inhalation daily Miralax 17 gram PO DAILY Mucinex 600mg PO BID Xanax 0.5mg PO BID Coreg 6.25 PO BID Lasix 20mg PO DAILY K-TAB 10meq PO daily Clonidine 0.1mg PO TID Losartan 100mg PO Daily Systane 1 one drop both eyes PRN Minoxidil 5mg PO BID PRN Anucort 25mg suppository 1 mg MO TID PRN Clotrimazole-Betamethasone one application TOPICAL BID Amlodipine 5mg PO BEDTIME ALLERGIES: Levofloxacin PHYSICAL EXAMINATION: VITAL SIGNS: Temperature 97.9, heart rate 87, respiratory rate 20, blood pressure 131/64 and pulse ox 91%. HEENT: Head normocephalic, atraumatic. Eyes: Extraocular muscles are intact. Pupils are equal, round and reactive to light and accommodation. Ears: No lesions. Nose appeared normal. Throat: No exudate or erythema. NECK: Supple. No JVD, no carotid bruit. No lymphadenopathy or thyromegaly. LUNGS: Diminished breath sounds bilaterally with inspiratory and expiratory wheezing. Clear to auscultation. Percussion note normal. Chest symmetrical. HEART: S1, S2, no S3. No murmur. No cyanosis or clubbing. No ascites. Pulses: Dorsalis pedis and posterior tibial pulses +1 to +2 bilaterally. ABDOMEN: Soft. Nontender. Bowel sounds active. No CVA tenderness. No mass felt. EXTREMITIES: No edema. Full range of motion of all extremities, equal. NEUROLOGIC: No focal deficit. Cranial nerves II through XII are grossly intact. No headache, no double vision or headache. SKIN: Not dry. Intact. Turgor - normal. LYMPHATIC: No palpable lymph nodes/no lymphedema. MUSCULOSKELETAL: Normal joints with no swelling. Muscle tone is normal. LABS: WBC 7.21, hgb 14.6, hct 42.9, plt count 172, sodium 134, potassium 4.0, BUN 15, creatinine 1.31, glucose 97, ABG on 3 liters O2 saturation 86, pH 7.4, pCO2 44, PO2 52, bicarb 27.3. Troponin > 0.01. Respiratory panel is negative. NT PRO BNP is 184, lactic acid 0.66. Chest CT shows COPD, stable scaring, coronary artery disease. ASSESSMENT: 1. Acute respiratory failure 2. Acute COPD exacerbation 3. History of chronic respiratory failure oxygen dependent 4. Chronic kidney disease PLAN: 1. We will admit 2. Routine telemetry orders 3. CBC and CMP daily 4. Start Zithromax 500mg PO daily times three days 5. Rocephin 1 gram IV daily 6. Solu-Cortef 125mg IV Q 8 hours 7. The patient is to continue with Symbicort BID and Albuterol TID 8. Increase oxygen to 4 liters 9. Repeat ABGS on 4 liters 10. Continue home medications 11. Sputum culture TIME SPENT: More than 70 minutes. MTDD
== END 2020-12-23 13:35 | disposition home or self-care (01) | DRG 189 ==
LOC: ED 06:39 → MEDSURG A 10:22
PROVIDERS: ADMIT Internal Medicine; ATTEND Internal Medicine
DX: Z95.5 Presence of coronary angioplasty implant and graft; J44.1 Chronic obstructive pulmonary disease with (acute) exacerbation; J96.10 Chronic respiratory failure, unspecified whether with hypoxia or hypercapnia; I25.810 Atherosclerosis of coronary artery bypass graft(s) without angina pectoris; G47.30 Sleep apnea, unspecified; Z99.81 Dependence on supplemental oxygen; Z87.01 Personal history of pneumonia (recurrent); Z20.822 Contact with and (suspected) exposure to COVID-19; I10 Essential (primary) hypertension; M19.90 Unspecified osteoarthritis, unspecified site; R73.9 Hyperglycemia, unspecified; R00.2 Palpitations; F41.9 Anxiety disorder, unspecified; N40.0 Benign prostatic hyperplasia without lower urinary tract symptoms; N18.30 Chronic kidney disease, stage 3 unspecified; J18.9 Pneumonia, unspecified organism

== ENCOUNTER 2021-03-01 10:12 | Inpatient (IN) ==
[2021-03-01] MEDS ORDERED: SOLU-MEDROL 125 MG IVP ONE (10:33)
[2021-03-01 10:47] LABS: BASOPHILS % (AUTO) 0.3 % (0.0-3.0); EOSINOPHILS # (AUTO) 0.2 K/ul (0.0-0.7); EOSINOPHILS % (AUTO) 4.1 % (0.0-7.0); HEMATOCRIT 40.4 % (42.0-52.0); HEMOGLOBIN 14.1 g/dl (14.0-18.0); IMMATURE GRANULOCYTE % (AUTO) 0.5 % (0.0-5.0); LYMPHOCYTES # (AUTO) 1.3 K/uL (0.60-3.4); LYMPHOCYTES % (AUTO) 33.5 (10.0-50.0); MEAN CORPUSCULAR HEMOGLOBIN 31.6 pg (27.0-31.0); MEAN CORPUSCULAR HGB CONC 34.9 (31.8-35.4); MEAN CORPUSCULAR VOLUME 90.6 fl (80.0-94.0); MONOCYTES # (AUTO) 0.4 K/uL (0.4-2.0); MONOCYTES % (AUTO) 9.2 (0-10); NEUTROPHILS # (AUTO) 2.1 K/ul (2.0-6.9); NEUTROPHILS % (AUTO) 52.4 % (42.2-75.2); PLATELET COUNT 150 10^3/uL (140-440); RDW COEFFICIENT OF VARIATION 12.8 % (11.6-14.8); RED BLOOD COUNT 4.46 10^6/ul (4.70-6.10); WHITE BLOOD COUNT 3.91 K/ul (4.2-10.2)
[2021-03-01 11:00] LABS: ALANINE AMINOTRANSFERASE 19.3 U/L (0-50); ALBUMIN 4.23 g/dL (3.5-5.0); ALKALINE PHOSPHATASE 53.6 U/L (56-119); ASPARTATE AMINO TRANSFERASE 24.4 U/L (17-59); BILIRUBIN,TOTAL 0.62 mg/dL (0.2-1.3); BLOOD UREA NITROGEN 20.1 mg/dL (9-20); CALCIUM 9.17 mg/dL (8.4-10.2); CARBON DIOXIDE 26.9 mmol/L (22-30.0); CHLORIDE 96.3 mmol/L (98-107); CREATININE 1.03 mg/dL (0.60-1.10); GLUCOSE 95.6 mg/dL (74-106); SODIUM 128.6 mmol/L (134.5-145); TOTAL PROTEIN 6.68 g/dL (6.3-8.2)
[2021-03-01 11:07] LABS: ABG O2 HGB 95.8 % (95-100); ABG PH 7.35 (7.35-7.45); BEecf 0.9 (-2.0-3.0); COHb 1.9 (0.5-1.5); HCO3 26.5 (21-28); MetHb 1.1 (0-1.5); sO2 96.8 % (94-98); tHb 14.1 g/dl (11.7-17.4)
--- NOTE | 2021-03-01 11:18 | DI ---
EXAM: Chest one view, frontal view only. HISTORY: Chronic obstructive pulmonary disease. COMPARISON: 12/19/2020. FINDINGS: Heart size normal. There is no vascular congestion. Calcified granulomatous changes pres ent. A new band-like opacity in the right perihilar region. Basilar reticular opacities otherwise s table. No pleural effusion or pneumothorax. Emphysema. No acute osseous abnormality IMPRESSION: New right perihilar atelectasis.
[2021-03-01 11:38] LABS: TROPONIN I < 0.012 ng/ml (0.0000-0.120)
[2021-03-01 13:09] LABS: BORDETELLA PARAPERTUSSIS (PCR) NOT DETECTED (NOT DETECT); BORDETELLA PERTUSSIS (PCR) NOT DETECTED (NOT DETECT); CHLAMYDIA PNEUMONIAE (PCR) NOT DETECTED (NOT DETECT); CORONAVIRUS 229E (PCR) NOT DETECTED (NOT DETECT); CORONAVIRUS HKU1 (PCR) NOT DETECTED (NOT DETECT); CORONAVIRUS NL63 (PCR) NOT DETECTED (NOT DETECT); CORONAVIRUS OC43 (PCR) NOT DETECTED (NOT DETECT); HUMAN METAPNEUMOVIRUS (PCR) NOT DETECTED (NOT DETECT); HUMAN RHINOVIRUS/ENTEROV (PCR) NOT DETECTED (NOT DETECT); INFLUENZA B (PCR) NOT DETECTED (NOT DETECT); MYCOPLASMA PNEUMONIAE (PCR) NOT DETECTED (NOT DETECT); PARAINFLUENZA VIRUS 1 (PCR) NOT DETECTED (NOT DETECT); PARAINFLUENZA VIRUS 2 (PCR) NOT DETECTED (NOT DETECT); PARAINFLUENZA VIRUS 3 (PCR) NOT DETECTED (NOT DETECT); PARAINFLUENZA VIRUS 4 (PCR) NOT DETECTED (NOT DETECT); RESPIRATORY SYNCYTIAL V (PCR) NOT DETECTED (NOT DETECT); SARS_COV_2 (PCR) NOT DETECTED (NOT DETECT)
[2021-03-01 14:33] LABS: ADENOVIRUS (PCR) NOT DETECTED (NOT DETECT)
[2021-03-01] MEDS ORDERED: ZITHROMAX PO ONE (14:59)
[2021-03-01] MEDS ORDERED: DUONEB NEB PRN (15:04)
--- NOTE | 2021-03-01 15:40 | ED.PDOC ---
General ED Provider: Dr. ROSA PATTEN Chief Complaint: Respiratory Complaint Stated Complaint: COPD flare up, wheezing, has home neb and oxygen, but even on his 5 L flow, he says sat's dropping in to low 80's ( he has a pulse ox). Time Seen by Provider: 03/01/21 10:24 Mode of Arrival: Ambulance Information Source: Patient Exam Limitations: No limitations Primary Care Provider: HAILEY GONZALEZ Nursing and Triage Documentation Reviewed and Agree: Yes Does patient meet sepsis criteria?: No System Inflammatory Response Syndrome: Not Applicable Sepsis Protocol: For patient's 13 years and over: Temp is 96.8 and below OR 101 and greater Pulse >90 BPM Resp >20/minute Acutely Altered Mental Status Are patient's symptoms suggestive of a new infection, such as: -Pneumonia -Skin, Soft Tissue -Endocarditis -UTI -Bone, Joint Infection -Implantable Device -Acute Abdominal Infection -Wound Infection -Meningitis -Blood Stream Catheter Infection -Unknown Respiratory Complaint Exam Shortness of Air Complaint/Exam Onset/Duration: few days, worsening Symptoms Are: Still present Timing: Constant Initial Severity: Moderate Current Severity: Moderate Character: Reports Dyspnea on exertion Alleviating: Reports Bronchodilators and Oxygen Associated Signs and Symptoms: Reports Wheezing, Rapid breathing and Labored breathing Related History: Reports Similar episode (many) History of Healthcare-Acquired Pneumonia: No Pulmonary Embolism Risk Factors: Reports None Cardiac Risk Factors: Reports Hypertension Pseudomonas Risk Factors: Reports None Tuberculosis Risk Factors: Reports None Home Oxygen Use: Yes Recent Stress Test: No Recent Echo/LV Function: No Respiratory Distress: Moderate Stridor Present: No Tracheal Deviation: No Subcutaneous Emphysema: No Accessory Muscle Use: No Retractions: Intercostal Diminished Breath Sounds: Yes Prolonged Expiratory Phase: Yes Unable to Speak Full Sentences: No Fatigue: Yes Leg Swelling: No Nohemy's Sign Present: No Grunting Respirations: No Kussmaul Respirations: No Differential Diagnoses: CHF, COPD Exacerbation and Pneumonia Related Surgical History: Reports None Review of Systems Review Of Systems Constitutional: Reports No symptoms Eyes: Reports No symptoms Ears, Nose, Mouth, Throat: Reports No symptoms Respiratory: Reports Cough, Orthopnea and Wheezing Cardiac: Reports No symptoms GI: Reports No symptoms : Reports No symptoms Musculoskeletal: Reports No symptoms Skin: Reports No symptoms Neurological: Reports No symptoms Endocrine: Reports No symptoms Hematologic/Lymphatic: Reports No symptoms All Other Systems: Reviewed and Negative [facility] Medical History Anxiety Blood disease BPH (benign prostatic hyperplasia) CAD (coronary artery disease) Cancer of skin of external nose (~10/04/20) Chronic bronchitis Chronic respiratory failure COPD (chronic obstructive pulmonary disease) Emphysema of lung Enlarged heart Gastroesophageal reflux disease Hypertension Osteoarthritis Oxygen dependent Prostate enlargement Sciatica, right side Seasonal allergies Secondary polycythemia Sleep apnea Stage 3 chronic kidney disease Family History Mother Obstetric anesthesia problems Emphysema of lung Social History Smoking and tobacco status: Former smoker History of recent travel: No Surgical History History of bilateral cataract extraction History of coronary artery stent placement History of tonsillectomy Physical Exam Physical Exam Appearance: Reports Ill-appearing Ill-appearing: Moderate Pain Distress: Moderate Eyes: Reports ABDIAS ENT: Reports Oropharynx normal Neck: Supple Respiratory: Reports Airway patent, Breath sounds diminished, Rhonchi and Wheezes Cardiovascular: Reports RRR and Pulses normal GI/: Reports Soft and Nontender Musculoskeletal: Reports Normal strength and ROM intact Skin: Reports Warm and Dry Neurological: Reports Sensation intact, Motor intact and Alert Psychiatric: Reports Affect appropriate Interpretation Radiology Interpretation Radiology Interpretation By: Radiologist Radiology Results: Positive Exam Interpreted: Portable CXR Xray Comments: COPD, atelectasis EKG Interpretation Time of EKG #1: 10:45 Rate: Normal Rhythm: Sinus Ectopy: None [place]: NL ST Segment: Normal Interpretation: WNL Physician Notification Case Discussed Physician Notified: Dr. Gonzalez out of town Critical Care Note Critical Care Note Total Critical Care Time (mins): 0 Course Course Hematology/Chemistry: 03/01/21 10:42 03/01/21 10:42 Orders, Labs, Meds: Lab Review 03/01/21 03/01/21 03/01/21 10:42 10:42 11:00 WBC 3.91 L RBC 4.46 L Hgb 14.1 Hct 40.4 L MCV 90.6 MCH 31.6 H MCHC 34.9 RDW Coeff of Bhaskar 12.8 Plt Count 150 Immature Gran % (Auto) 0.5 Neut % (Auto) 52.4 Lymph % (Auto) 33.5 [place] % (Auto) 9.2 Eos % (Auto) 4.1 Baso % (Auto) 0.3 Neut # (Auto) 2.1 Lymph # (Auto) 1.3 [place] # (Auto) 0.4 Eos # (Auto) 0.2 Baso # (Auto) 0.0 Immature Gran # (Auto) 0.0 Puncture Site Rrad Base Excess 0.9 O2 Saturation 96.8 ABG pH 7.35 ABG pCO2 48.0 H ABG pO2 93.0 ABG HCO3 26.5 ABG Total CO2 28.0 H Albino Test Pos Hemoglobin 1.1 Oxyhemoglobin 95.8 Carboxyhemoglobin 1.9 H Total Hemoglobin 14.1 O2 Delivery Device Cannula Oxygen Liter Flow 5.00 Sodium 128.6 L Potassium 4.30 Chloride 96.3 L Carbon Dioxide 26.9 Anion Gap 9.70 BUN 20.1 H Creatinine 1.03 Estimated GFR (MDRD) 69.00 BUN/Creatinine Ratio 19.51 Glucose 95.6 Calcium 9.17 Total Bilirubin 0.62 AST 24.4 ALT 19.3 Alkaline Phosphatase 53.6 L Troponin I < 0.012 NT-Pro-B Natriuret Pep 103.000 Total Protein 6.68 Albumin 4.23 Globulin 2.45 Albumin/Globulin Ratio 1.72 Adenovirus (PCR) B. pertussis DNA (PCR) B.parapertussis DNA PCR C. pneumoniae DNA (PCR) Coronavirus OC43 (PCR) Coronavirus HKU1 (PCR) Coronavirus 229E (PCR) Coronavirus NL63 (PCR) Human Metapneumovir PCR Influenza Type A (PCR) Influenza B (RT-PCR) M. pneumoniae (PCR) Parainfluenza 1 (PCR) Parainfluenza 2 (PCR) Parainfluenza 3 (PCR) Parainfluenza 4 (PCR) RSV (PCR) Entero/Rhino (PCR) SARS-CoV-2 (PCR) 03/01/21 13:05 WBC RBC Hgb Hct MCV MCH MCHC RDW Coeff of Bhaskar Plt Count Immature Gran % (Auto) Neut % (Auto) Lymph % (Auto) [place] % (Auto) Eos % (Auto) Baso % (Auto) Neut # (Auto) Lymph # (Auto) [place] # (Auto) Eos # (Auto) Baso # (Auto) Immature Gran # (Auto) Puncture Site Base Excess O2 Saturation ABG pH ABG pCO2 ABG pO2 ABG HCO3 ABG Total CO2 Albino Test Hemoglobin Oxyhemoglobin Carboxyhemoglobin Total Hemoglobin O2 Delivery Device Oxygen Liter Flow Sodium Potassium Chloride Carbon Dioxide Anion Gap BUN Creatinine Estimated GFR (MDRD) BUN/Creatinine Ratio Glucose Calcium Total Bilirubin AST ALT Alkaline Phosphatase Troponin I NT-Pro-B Natriuret Pep Total Protein Albumin Globulin Albumin/Globulin Ratio Adenovirus (PCR) Not detected B. pertussis DNA (PCR) Not detected B.parapertussis DNA PCR Not detected C. pneumoniae DNA (PCR) Not detected Coronavirus OC43 (PCR) Not detected Coronavirus HKU1 (PCR) Not detected Coronavirus 229E (PCR) Not detected Coronavirus NL63 (PCR) Not detected Human Metapneumovir PCR Not detected Influenza Type A (PCR) Not detected Influenza B (RT-PCR) Not detected M. pneumoniae (PCR) Not detected Parainfluenza 1 (PCR) Not detected Parainfluenza 2 (PCR) Not detected Parainfluenza 3 (PCR) Not detected Parainfluenza 4 (PCR) Not detected RSV (PCR) Not detected Entero/Rhino (PCR) Not detected SARS-CoV-2 (PCR) Not detected Orders Category Date Time Status ABG DRAW REQUEST Stat CARDIO 03/01/21 10:44 Completed EKG-(ED ONLY) Stat CARDIO 03/01/21 10:30 Completed ABG COOX Stat LAB 03/01/21 11:00 Completed CBC W/ AUTO DIFF Stat LAB 03/01/21 10:42 Completed COMPREHENSIVE METABOLIC PANEL Stat LAB 03/01/21 10:42 Completed NT-PROBNP Stat LAB 03/01/21 10:42 Completed RESPIRATORY PANEL 2.1 (PCR) Stat LAB 03/01/21 13:05 Completed TROPONIN I Stat LAB 03/01/21 10:42 Completed Methylprednisolone Sod Succ/Pf [Solu-Medrol 125 mg] MEDS 03/01/21 10:33 Discontinued 125 mg IVP ONCE ONE CHEST, 1V AP ONLY Stat RADS 03/01/21 10:30 Completed Medications Generic Name Dose Route Start Last Admin Trade Name Freq PRN Reason Stop Dose Admin Albuterol/Ipratropium 3 ml 03/01/21 15:04 Ipratropium/Albuterol Vial.Neb NEB RTQ4H PRN Wheezing Enoxaparin Sodium 40 mg 03/01/21 15:30 Enoxaparin Sodium 40 Mg/0.4 Ml Syr SUBCUT DAILY BANDAR CEFTRIAXONE/D5W 1 GM PREMIX 1 gm in 50 mls @ 75 mls/hr 03/01/21 15:30 Rocephin 1 Gm/50 Ml D5w IV 03/04/21 15:29 DAILY BANDAR Methylprednisolone Sodium Succinate 60 mg 03/01/21 21:00 Methylprednisolone Sod Succ/Pf 125 Mg/2 Ml Vial IVP Q8HR BANDAR Discontinued Medications Generic Name Dose Route Start Last Admin Trade Name Rafaelq PRN Reason Stop Dose Admin Azithromycin 500 mg 03/01/21 14:59 03/01/21 15:17 Azithromycin 250 Mg Tablet PO 03/01/21 15:00 500 mg ONCE ONE Administration Methylprednisolone Sodium Succinate 125 mg 03/01/21 10:33 03/01/21 10:46 Methylprednisolone Sod Succ/Pf 125 Mg/2 Ml Vial IVP 03/01/21 10:34 125 mg ONCE ONE Administration Vital Signs: Temp Pulse Resp BP Pulse Ox 03/01/21 12:00 75 20 137/64 97 03/01/21 10:16 97.3 F L 79 26 H 163/69 H 97 Discharge Plan Discharge Patient Disposition: ADMITTED INPATIENT Discharge Problem: COPD with acute exacerbation ED Provider: ROSA PATTEN Condition: Stable Physician Progress Note: [COPD exacerbation, patient requests to be admitted. Dr. Gonzalez is out of town. See orders.]
[2021-03-01] MEDS: ROCEPHIN 1 GM/50 ML D5W 1 GM/50 ML BAG IV SCH (16:02)
[2021-03-01 16:33] VITALS: BMI 27.1
[2021-03-01] MEDS ORDERED: MINOXIDIL PO PRN (16:42)
[2021-03-01] MEDS ORDERED: COREG PO SCH (17:00)
[2021-03-01] MEDS: COREG PO SCH (17:44)
[2021-03-01] MEDS: LOVENOX SUBCUT SCH (17:44)
[2021-03-01] MEDS: DUONEB NEB SCH (20:10)
[2021-03-01] MEDS: SOLU-MEDROL 125 MG IVP SCH (20:39)
[2021-03-01] MEDS: MUCINEX PO SCH (20:40)
[2021-03-01] MEDS: XANAX PO SCH (20:40)
[2021-03-01] MEDS: CATAPRES PO SCH (20:40)
[2021-03-01] MEDS: FLOMAX PO SCH (20:40)
[2021-03-01] MEDS: NORVASC PO SCH (20:40)
[2021-03-01] MEDS: ASPIRIN EC PO SCH (20:40)
[2021-03-01] MEDS: TYLENOL PO PRN (22:54)
[2021-03-02] MEDS: PULMICORT 0.5 MG/2 ML NEB SCH (04:45)
[2021-03-02] MEDS: DUONEB NEB SCH ×4 (04:45→20:30)
[2021-03-02] MEDS: LASIX TAB PO SCH (05:31)
[2021-03-02] MEDS: PROTONIX PO SCH (05:31)
[2021-03-02] MEDS: SOLU-MEDROL 125 MG IVP SCH ×3 (05:31→20:11)
[2021-03-02 05:39] LABS: HEMATOCRIT 40.5 % (42.0-52.0); HEMOGLOBIN 14.1 g/dl (14.0-18.0); IMMATURE GRANULOCYTE % (AUTO) 0.3 % (0.0-5.0); LYMPHOCYTES # (AUTO) 0.8 K/uL (0.60-3.4); LYMPHOCYTES % (AUTO) 23.1 (10.0-50.0); MEAN CORPUSCULAR HEMOGLOBIN 31.4 pg (27.0-31.0); MEAN CORPUSCULAR HGB CONC 34.8 (31.8-35.4); MEAN CORPUSCULAR VOLUME 90.2 fl (80.0-94.0); MONOCYTES % (AUTO) 0.9 (0-10); NEUTROPHILS # (AUTO) 2.5 K/ul (2.0-6.9); NEUTROPHILS % (AUTO) 75.7 % (42.2-75.2); PLATELET COUNT 164 10^3/uL (140-440); RDW COEFFICIENT OF VARIATION 12.8 % (11.6-14.8); RED BLOOD COUNT 4.49 10^6/ul (4.70-6.10); WHITE BLOOD COUNT 3.29 K/ul (4.2-10.2)
[2021-03-02 05:53] LABS: BLOOD UREA NITROGEN 22.1 mg/dL (9-20); CALCIUM 9.17 mg/dL (8.4-10.2); CARBON DIOXIDE 25.4 mmol/L (22-30.0); CREATININE 1.06 mg/dL (0.60-1.10); POTASSIUM 4.6 mmol/L (3.5-5.1); SODIUM 129.4 mmol/L (134.5-145)
[2021-03-02] MEDS: MUCINEX PO SCH ×2 (08:39→20:10)
[2021-03-02] MEDS: ROCEPHIN 1 GM/50 ML D5W 1 GM/50 ML BAG IV SCH (08:39)
[2021-03-02] MEDS: MIRALAX PO SCH (08:39)
[2021-03-02] MEDS: CATAPRES PO SCH ×3 (08:39→20:10)
[2021-03-02] MEDS: COREG PO SCH ×2 (08:39→17:43)
[2021-03-02] MEDS: MICRO-K CAP PO SCH (08:39)
[2021-03-02] MEDS: XANAX PO SCH ×2 (08:40→20:10)
[2021-03-02] MEDS: LOVENOX SUBCUT SCH (08:40)
[2021-03-02] MEDS: LEXAPRO PO SCH (08:40)
[2021-03-02] MEDS: COZAAR PO SCH (08:40)
[2021-03-02] MEDS: ZITHROMAX PO SCH (10:53)
[2021-03-02] MEDS: FLOMAX PO SCH (20:08)
[2021-03-02] MEDS: NORVASC PO SCH (20:10)
[2021-03-02] MEDS: ASPIRIN EC PO SCH (20:20)
[2021-03-02] MEDS: TYLENOL PO PRN (23:30)
[2021-03-03] MEDS: PULMICORT 0.5 MG/2 ML NEB SCH (04:56)
[2021-03-03] MEDS: DUONEB NEB SCH ×4 (04:56→20:10)
[2021-03-03] MEDS: SOLU-MEDROL 125 MG IVP SCH ×3 (05:41→21:29)
[2021-03-03] MEDS: PROTONIX PO SCH ×2 (05:42→17:35)
[2021-03-03] MEDS: LASIX TAB PO SCH (05:42)
[2021-03-03 05:49] LABS: HEMATOCRIT 40.5 % (42.0-52.0); IMMATURE GRANULOCYTE % (AUTO) 0.5 % (0.0-5.0); LYMPHOCYTES % (AUTO) 12.5 (10.0-50.0); MEAN CORPUSCULAR HEMOGLOBIN 31.4 pg (27.0-31.0); MEAN CORPUSCULAR HGB CONC 34.6 (31.8-35.4); MEAN CORPUSCULAR VOLUME 90.8 fl (80.0-94.0); MONOCYTES # (AUTO) 0.3 K/uL (0.4-2.0); MONOCYTES % (AUTO) 3.3 (0-10); NEUTROPHILS # (AUTO) 6.4 K/ul (2.0-6.9); NEUTROPHILS % (AUTO) 83.7 % (42.2-75.2); PLATELET COUNT 188 10^3/uL (140-440); RED BLOOD COUNT 4.46 10^6/ul (4.70-6.10); WHITE BLOOD COUNT 7.61 K/ul (4.2-10.2)
[2021-03-03 06:01] LABS: BLOOD UREA NITROGEN 24.1 mg/dL (9-20); CALCIUM 9.37 mg/dL (8.4-10.2); CHLORIDE 95.5 mmol/L (98-107); CREATININE 1.1 mg/dL (0.60-1.10); GLUCOSE 138.7 mg/dL (74-106); POTASSIUM 4.73 mmol/L (3.5-5.1); SODIUM 128.8 mmol/L (134.5-145)
[2021-03-03] MEDS: TYLENOL PO PRN (07:26)
[2021-03-03] MEDS: MIRALAX PO SCH (08:20)
[2021-03-03] MEDS: CATAPRES PO SCH ×3 (08:21→21:42)
[2021-03-03] MEDS: LEXAPRO PO SCH (08:21)
[2021-03-03] MEDS: XANAX PO SCH ×2 (08:21→21:31)
[2021-03-03] MEDS: MUCINEX PO SCH ×2 (08:21→21:37)
[2021-03-03] MEDS: MICRO-K CAP PO SCH (08:21)
[2021-03-03] MEDS: MINOXIDIL PO SCH ×2 (08:21→21:31)
[2021-03-03] MEDS: COREG PO SCH ×2 (08:22→17:34)
[2021-03-03] MEDS: ZITHROMAX PO SCH (08:22)
[2021-03-03] MEDS: COZAAR PO SCH (08:22)
[2021-03-03] MEDS: ROCEPHIN 1 GM/50 ML D5W 1 GM/50 ML BAG IV SCH (08:22)
[2021-03-03] MEDS: LOVENOX SUBCUT SCH (08:28)
[2021-03-03] MEDS: MILK OF MAGNESIA PO PRN (09:49)
[2021-03-03] MEDS: PEPCID PO SCH ×2 (09:49→17:34)
[2021-03-03] MEDS: ASPIRIN EC PO SCH (21:30)
[2021-03-03] MEDS: FLOMAX PO SCH (21:30)
[2021-03-03] MEDS: NORVASC PO SCH (21:31)
[2021-03-04] MEDS: PULMICORT 0.5 MG/2 ML NEB SCH (05:25)
[2021-03-04] MEDS: DUONEB NEB SCH ×4 (05:25→19:55)
[2021-03-04] MEDS: SOLU-MEDROL 125 MG IVP SCH ×3 (05:57→21:12)
[2021-03-04] MEDS: PEPCID PO SCH ×2 (05:58→16:46)
[2021-03-04] MEDS: PROTONIX PO SCH ×2 (05:58→16:46)
[2021-03-04] MEDS: LASIX TAB PO SCH (05:59)
[2021-03-04 06:22] LABS: HEMATOCRIT 43.2 % (42.0-52.0); HEMOGLOBIN 14.7 g/dl (14.0-18.0); IMMATURE GRANULOCYTE % (AUTO) 0.5 % (0.0-5.0); LYMPHOCYTES # (AUTO) 1.1 K/uL (0.60-3.4); MEAN CORPUSCULAR HEMOGLOBIN 31.1 pg (27.0-31.0); MEAN CORPUSCULAR VOLUME 91.5 fl (80.0-94.0); MONOCYTES # (AUTO) 0.3 K/uL (0.4-2.0); MONOCYTES % (AUTO) 3.8 (0-10); NEUTROPHILS % (AUTO) 80.7 % (42.2-75.2); PLATELET COUNT 218 10^3/uL (140-440); RDW COEFFICIENT OF VARIATION 13.2 % (11.6-14.8); RED BLOOD COUNT 4.72 10^6/ul (4.70-6.10); WHITE BLOOD COUNT 7.41 K/ul (4.2-10.2)
[2021-03-04 06:38] LABS: ALBUMIN 4.34 g/dL (3.5-5.0); ASPARTATE AMINO TRANSFERASE 23.4 U/L (17-59); BILIRUBIN,TOTAL 0.47 mg/dL (0.2-1.3); BLOOD UREA NITROGEN 22.6 mg/dL (9-20); CALCIUM 9.09 mg/dL (8.4-10.2); CARBON DIOXIDE 26.8 mmol/L (22-30.0); CHLORIDE 93.2 mmol/L (98-107); CREATININE 0.98 mg/dL (0.60-1.10); GLUCOSE 138.6 mg/dL (74-106); POTASSIUM 4.88 mmol/L (3.5-5.1); SODIUM 125.3 mmol/L (134.5-145); TOTAL PROTEIN 6.8 g/dL (6.3-8.2)
[2021-03-04] MEDS: CATAPRES PO SCH ×3 (08:18→22:00)
[2021-03-04] MEDS: LEXAPRO PO SCH (08:18)
[2021-03-04] MEDS: XANAX PO SCH ×3 (08:19→21:55)
[2021-03-04] MEDS: MINOXIDIL PO SCH ×2 (08:19→22:02)
[2021-03-04] MEDS: COREG PO SCH ×2 (08:19→16:46)
[2021-03-04] MEDS: COZAAR PO SCH (08:19)
[2021-03-04] MEDS: ZITHROMAX PO SCH (08:19)
[2021-03-04] MEDS: MICRO-K CAP PO SCH (08:19)
[2021-03-04] MEDS: MUCINEX PO SCH ×2 (08:19→22:00)
[2021-03-04] MEDS: ROCEPHIN 1 GM/50 ML D5W 1 GM/50 ML BAG IV SCH (08:20)
[2021-03-04] MEDS: MIRALAX PO SCH (08:20)
[2021-03-04] MEDS ORDERED: GLYCERIN SUPPOSITORY RC ONE (12:03)
[2021-03-04] MEDS ORDERED: CITRATE OF MAGNESIA PO ONE (12:48)
[2021-03-04] MEDS ORDERED: SODIUM CHLORIDE 1,000 ML IV SCH (13:00)
[2021-03-04] MEDS: TYLENOL PO PRN (17:44)
[2021-03-04] MEDS: FLOMAX PO SCH (21:55)
[2021-03-04] MEDS: ASPIRIN EC PO SCH (22:00)
[2021-03-04] MEDS: NORVASC PO SCH (22:01)
[2021-03-05] MEDS: PULMICORT 0.5 MG/2 ML NEB SCH (04:35)
[2021-03-05] MEDS: DUONEB NEB SCH ×4 (04:35→19:50)
[2021-03-05 05:20] LABS: HEMATOCRIT 39.7 % (42.0-52.0); HEMOGLOBIN 13.8 g/dl (14.0-18.0); IMMATURE GRANULOCYTE % (AUTO) 0.8 % (0.0-5.0); LYMPHOCYTES # (AUTO) 0.7 K/uL (0.60-3.4); LYMPHOCYTES % (AUTO) 19.5 (10.0-50.0); MEAN CORPUSCULAR HEMOGLOBIN 31.6 pg (27.0-31.0); MEAN CORPUSCULAR HGB CONC 34.8 (31.8-35.4); MEAN CORPUSCULAR VOLUME 90.8 fl (80.0-94.0); MONOCYTES # (AUTO) 0.1 K/uL (0.4-2.0); MONOCYTES % (AUTO) 2.7 (0-10); NEUTROPHILS # (AUTO) 2.9 K/ul (2.0-6.9); PLATELET COUNT 186 10^3/uL (140-440); RED BLOOD COUNT 4.37 10^6/ul (4.70-6.10); WHITE BLOOD COUNT 3.74 K/ul (4.2-10.2)
[2021-03-05 05:31] LABS: ALANINE AMINOTRANSFERASE 22.9 U/L (0-50); ALBUMIN 3.92 g/dL (3.5-5.0); ALKALINE PHOSPHATASE 48.4 U/L (56-119); ASPARTATE AMINO TRANSFERASE 22.3 U/L (17-59); BILIRUBIN,TOTAL 0.48 mg/dL (0.2-1.3); BLOOD UREA NITROGEN 23.6 mg/dL (9-20); CALCIUM 8.7 mg/dL (8.4-10.2); CARBON DIOXIDE 28.8 mmol/L (22-30.0); CHLORIDE 92.3 mmol/L (98-107); CREATININE 1.06 mg/dL (0.60-1.10); GLUCOSE 121.2 mg/dL (74-106); POTASSIUM 5.02 mmol/L (3.5-5.1); SODIUM 125.2 mmol/L (134.5-145); TOTAL PROTEIN 6.34 g/dL (6.3-8.2)
[2021-03-05] MEDS: PROTONIX PO SCH ×2 (05:54→16:34)
[2021-03-05] MEDS: SOLU-MEDROL 125 MG IVP SCH (05:54)
[2021-03-05] MEDS: LASIX TAB PO SCH (05:54)
[2021-03-05] MEDS: PEPCID PO SCH ×2 (05:54→16:34)
[2021-03-05] MEDS ORDERED: GLYCERIN SUPPOSITORY RC ONE (08:32)
[2021-03-05] MEDS: ROCEPHIN 1 GM/50 ML D5W 1 GM/50 ML BAG IV SCH (08:48)
[2021-03-05] MEDS: MILK OF MAGNESIA PO PRN (08:49)
[2021-03-05] MEDS: CATAPRES PO SCH ×3 (08:50→20:00)
[2021-03-05] MEDS: MICRO-K CAP PO SCH (08:50)
[2021-03-05] MEDS: COZAAR PO SCH (08:51)
[2021-03-05] MEDS: MUCINEX PO SCH ×2 (08:51→20:00)
[2021-03-05] MEDS: MINOXIDIL PO SCH ×2 (08:51→20:00)
[2021-03-05] MEDS: COREG PO SCH ×2 (08:51→16:34)
[2021-03-05] MEDS: LEXAPRO PO SCH (08:52)
[2021-03-05] MEDS: XANAX PO SCH ×3 (08:52→20:00)
[2021-03-05] MEDS: MIRALAX PO SCH (08:52)
[2021-03-05] MEDS ORDERED: CITRATE OF MAGNESIA PO ONE (11:59)
--- NOTE | 2021-03-05 13:19 | CT ---
EXAM: CT abdomen pelvis with and without contrast HISTORY: Constipation COMPARISON: 03/29/2020 TECHNIQUE: CT abdomen pelvis performed with and without intravenous contrast. Coronal and sagittal reformatted images obtained. FINDINGS: Emphysematous change lung bases with bibasilar atelectasis and/or scarring. No free air. No acute abnormalities of the bones. Degenerative change in the spine. Heart normal in size. Bhavya nary calcifications. Liver unremarkable. Patient status post cholecystectomy. Pancreas unremarkabl e. Granulomatous calcification in the spleen. Spleen otherwise unremarkable. Small nonspecific wilberto cification in the left adrenal gland. Adrenal glands otherwise unremarkable. Areas of bilateral fredrick al cortical scarring likely related to remote insult. No hydronephrosis or nephrolithiasis. No calc surjit visualized in the normal course of the ureters. Aorta normal in caliber. Moderate atheroscleros is. Bladder unremarkable. Prostate mildly enlarged with calcification. Small fat-containing perium bilical hernia. Stomach unremarkable. No dilated loops small bowel. Scattered fluid-filled loops s mall bowel could relate to mild enteritis. Mobile cecum. Small high density material in the appendi x. Appendix is not dilated or inflamed. Colonic diverticulosis. Fluid in the right colon. No lymp hadenopathy or ascites. IMPRESSION: 1. Possible mild enteritis. Recommend clinical correlation. Fluid in the colon could relate to ent eritis process and can be correlated for diarrhea. 2. Colonic diverticulosis. 3. Atherosclerosis All CT scans are performed using dose optimization techniques as appropriate to the performed exam an d include at least one of the following: Automated exposure control, adjustment of the mA and/or kV according t o size, and the use of iterative reconstruction technique.
[2021-03-05] MEDS: PREDNISONE PO SCH (16:34)
[2021-03-05] MEDS: ASPIRIN EC PO SCH (20:00)
[2021-03-05] MEDS: NORVASC PO SCH (20:00)
[2021-03-05] MEDS: OMNICEF PO SCH (20:00)
[2021-03-05] MEDS: FLOMAX PO SCH (20:00)
[2021-03-06] MEDS: DUONEB NEB SCH ×4 (04:17→20:40)
[2021-03-06] MEDS: PULMICORT 0.5 MG/2 ML NEB SCH (04:17)
[2021-03-06] MEDS: PEPCID PO SCH ×2 (06:20→17:22)
[2021-03-06] MEDS: LASIX TAB PO SCH (06:20)
[2021-03-06] MEDS: PROTONIX PO SCH ×2 (06:21→17:22)
[2021-03-06 07:58] LABS: BASOPHILS % (AUTO) 0.2 % (0.0-3.0); HEMATOCRIT 41.9 % (42.0-52.0); HEMOGLOBIN 14.6 g/dl (14.0-18.0); IMMATURE GRANULOCYTE % (AUTO) 0.5 % (0.0-5.0); LYMPHOCYTES # (AUTO) 1.1 K/uL (0.60-3.4); LYMPHOCYTES % (AUTO) 20.4 (10.0-50.0); MEAN CORPUSCULAR HEMOGLOBIN 31.6 pg (27.0-31.0); MEAN CORPUSCULAR HGB CONC 34.8 (31.8-35.4); MEAN CORPUSCULAR VOLUME 90.7 fl (80.0-94.0); MONOCYTES # (AUTO) 0.7 K/uL (0.4-2.0); MONOCYTES % (AUTO) 12.4 (0-10); NEUTROPHILS # (AUTO) 3.7 K/ul (2.0-6.9); NEUTROPHILS % (AUTO) 66.5 % (42.2-75.2); PLATELET COUNT 229 10^3/uL (140-440); RDW COEFFICIENT OF VARIATION 13.1 % (11.6-14.8); RED BLOOD COUNT 4.62 10^6/ul (4.70-6.10); WHITE BLOOD COUNT 5.58 K/ul (4.2-10.2)
[2021-03-06 08:21] LABS: BLOOD UREA NITROGEN 27.9 mg/dL (9-20); CALCIUM 8.76 mg/dL (8.4-10.2); CHLORIDE 91.8 mmol/L (98-107); CREATININE 1.05 mg/dL (0.60-1.10); POTASSIUM 4.83 mmol/L (3.5-5.1); SODIUM 126.2 mmol/L (134.5-145)
[2021-03-06] MEDS: MINOXIDIL PO SCH ×2 (09:13→22:00)
[2021-03-06] MEDS: COREG PO SCH ×2 (09:13→17:22)
[2021-03-06] MEDS: MUCINEX PO SCH ×2 (09:13→22:00)
[2021-03-06] MEDS: OMNICEF PO SCH ×2 (09:13→21:59)
[2021-03-06] MEDS: COZAAR PO SCH (09:13)
[2021-03-06] MEDS: LEXAPRO PO SCH (09:14)
[2021-03-06] MEDS: XANAX PO SCH ×3 (09:14→22:00)
[2021-03-06] MEDS: MIRALAX PO SCH ×2 (09:14→21:58)
[2021-03-06] MEDS: PREDNISONE PO SCH ×2 (09:14→17:22)
[2021-03-06] MEDS: CATAPRES PO SCH ×3 (09:14→22:00)
[2021-03-06] MEDS: MICRO-K CAP PO SCH (09:14)
--- NOTE | 2021-03-06 09:23 | PCM.PROG ---
Attending Provider: ATTENDING PROVIDER: Dr. MARCI PAYTON This patient is seen with Debbie Garcia, Nurse Practitioner. DATE OF SERVICE: 03/06/21 SUBJECTIVE: This 80 year old /WHITE M was hospitalized 03/01/21. The patient had multiple bowel movements yesterday. CT scan was normal. Breathing is stable. Anticipate possible discharge tomorrow. REVIEW OF SYSTEMS: CONSTITUTIONAL: No night sweats. No fatigue, malaise, lethargy. No fever or chills. HEENT: Eyes: No visual changes. No eye pain. No eye discharge. ENT: No runny nose. No epistaxis. No sinus pain. No odynophagia. No congestion. RESPIRATORY: No cough, no congestion. No hemoptysis. No shortness of breath. CARDIOVASCULAR: No angina symptoms. No CHF symptoms. No atypical chest pain for CAD. No palpitations. No orthopnea.. GASTROINTESTINAL: No abdominal pain. No nausea or vomiting. No diarrhea or constipation. No hematemesis. No hematochezia. GENITOURINARY: No urgency. No frequency. No dysuria. No hematuria. No obstructive symptoms. No discharge. No pain. No significant abnormal bleeding. MUSCULOSKELETAL: No musculoskeletal pain; no joint swelling. NEUROLOGICAL: Awake, alert, oriented to time, place and person. No headache. No neck pain. No syncope. No seizures. No dizziness. PSYCHIATRIC: Not anxious. No depression. No suicidal thoughts. No homicidal thoughts. SKIN: No rash. No lesions. No wounds. ENDOCRINE: No unexplained weight loss. No weight gain. HEMATOLOGIC/LYMPHATIC: No anemia. No purpura. No petechiae. No prolonged or excessive bleeding. No palpable lymph nodes. PHYSICAL EXAMINATION: GENERAL: The patient is awake, alert and oriented, lying in bed in no distress. VITAL SIGNS: Temperature 97.6 F, Pulse 64, Respiratory Rate 18, BP 114/66, Pulse Ox 95% HEENT: Head normocephalic, atraumatic. Eyes: Extraocular muscles are intact. Pupils are equal, round and reactive to light and accommodation. Ears: No lesions. Nose appeared normal. Throat: No exudate or erythema. NECK: Supple. No JVD, no carotid bruit. No lymphadenopathy or thyromegaly. LUNGS: Diminished breath sounds. Clear to auscultation. Percussion note normal. Chest symmetrical. HEART: S1, S2, no S3. No murmurs. No cyanosis or clubbing. No ascites. Pulses: Dorsalis pedis and posterior tibial pulses +1 to +2 both sides. ABDOMEN: Soft. Non-tender. Bowel sounds active. No CVA tenderness. No mass felt. EXTREMITIES: No edema. Full range of motion of all extremities, equal. NEUROLOGIC: No focal deficit. Cranial nerves II through XII are grossly intact. No headache. No double vision. SKIN: Not dry. Intact. Turgor-normal. LYMPHATIC: No palpable lymph nodes/no lymphedema. MUSCULOSKELETAL: Normal joints with no swelling. Muscle tone is normal. LAB REVIEW: 03/06/21 07:50 03/05/21 05:09 03/06/21 07:50: WBC 5.58, RBC 4.62 L, Hgb 14.6, Hct 41.9 L, MCV 90.7, MCH 31.6 H , MCHC 34.8, RDW Coeff of Bhaskar 13.1, Plt Count 229, Immature Gran % (Auto) 0.5, Neut % (Auto) 66.5, Lymph % (Auto) 20.4, [place] % (Auto) 12.4 H, Eos % (Auto) 0.0, Baso % (Auto) 0.2, Neut # (Auto) 3.7, Lymph # (Auto) 1.1, [place] # (Auto) 0.7, Eos # (Auto) 0.0, Baso # (Auto) 0.0, Immature Gran # (Auto) 0.0 ASSESSMENT: Please see below. 1. Chronic respiratory failure 2. Acute COPD exacerbation 3. Constipation, resolved 4. Anxiety PLAN: 1. Increase Miralax BID 2. Continue PO medications 3. Anticipate discharge tomorrow Plan and coordination of the patient's care discussed in the presence of Machine Operator Slitter Technician and nurse. SCRIBED BY: KAMI GALEANA Core Setter scribed while in presence of service performed by Dr. Gonzalez/Debbie Garcia APRN on 03/06/21 ([id number])
--- NOTE | 2021-03-06 12:58 | PN ---
DATE OF SERVICE: 03/02/2021 SUBJECTIVE: The patient is examined in the room. He is under the care of the hospitalist as well. His condition is stable. He arrived in the emergency room yesterday said he felt that he was a little bit more short of breath than normal. Oxygen saturation did not recover as quickly as he would like it to after he got up and went to the bathroom. He does have endstage COPD. ABG were ok. pCo2 was 48, pO2 93 he does wear the trilogy at night and that was on 5 liters yesterday. He was hyponatremic at 128 yesterday and today 129. Renal function is normal. He is on IV steroids. Chest x-ray did reveal increased perihilar opacity likely more due to atelectasis. REVIEW OF SYSTEMS: CONSTITUTIONAL: No night sweats. No fatigue, malaise, lethargy. No fever or chills. HEENT: Eyes: No visual changes. No eye pain. No eye discharge. ENT: No runny nose. No epistaxis. No sinus pain. No sore throat. No odynophagia. No congestion. RESPIRATORY: Cough, no congestion. No hemoptysis. Shortness of breath. CARDIOVASCULAR: No angina symptoms. No CHF symptoms. No atypical chest pain for CAD. No palpitations. No PND. No orthopnea. GASTROINTESTINAL: No abdominal pain. No nausea or vomiting. No diarrhea or constipation. No hematemesis. No hematochezia. GENITOURINARY: No urgency. No frequency. No dysuria. No hematuria. No obstructive symptoms. No discharge. No pain. No significant abnormal bleeding. MUSCULOSKELETAL: No musculoskeletal pain; no joint swelling. NEUROLOGICAL: No headache. No neck pain. No syncope. No seizures. No dizziness. PSYCHIATRIC: Anxious. No depression. No suicidal thoughts. No homicidal thoughts. SKIN: No rash. No lesions. No wounds. ENDOCRINE: No unexplained weight loss. No weight gain. HEMATOLOGIC/LYMPHATIC: No anemia. No purpura. No petechiae. No prolonged or excessive bleeding. No palpable lymph nodes. PHYSICAL EXAMINATION: HEENT: Head normocephalic, atraumatic. Eyes: Extraocular muscles are intact. Pupils are equal, round and reactive to light and accommodation. Ears: No lesions. Nose appeared normal. Throat: No exudate or erythema. NECK: Supple. No JVD, no carotid bruit. No lymphadenopathy or thyromegaly. LUNGS: Severely diminished breath sounds and no wheezing. Clear to auscultation. Percussion note normal. Chest symmetrical. HEART: S1, S2, no S3. No murmurs. No cyanosis or clubbing. No ascites. Pulses: Dorsalis pedis and posterior tibial pulses +1 to +2 bilaterally. ABDOMEN: Soft. Nontender. Bowel sounds active. No CVA tenderness. No mass felt. EXTREMITIES: No edema. Full range of motion of all extremities, equal. NEUROLOGIC: No focal deficit. Cranial nerves II through XII are grossly intact. No headache. No double vision. Anxious. SKIN: Not dry. Intact. Turgor - normal. LYMPHATIC: No palpable lymph nodes/no lymphedema. MUSCULOSKELETAL: Normal joints with no swelling. Muscle tone is normal. ASSESSMENT: 1. Acute COPD exacerbation 2. Endstage COPD with chronic respiratory failure 3. Hyponatremia 4. Anxiety PLAN: 1. Zithromax 500mg PO daily for three days 2. Will keep him on 5 liters 3. Already on steroids IV and will continue those 4. He is to wear his Trilogy at night 5. Continue with his percussion vest 6. Everything else will remain unchanged. TIME SPENT: More than 30 minutes. Plan and coordination of the patient's care discussed in the presence of nurse. NITIN
--- NOTE | 2021-03-06 13:10 | PN ---
DATE OF SERVICE: 03/03/2021 SUBJECTIVE: The patient is complaining of constipation otherwise doing well. He has also had some acid reflux this morning. REVIEW OF SYSTEMS: CONSTITUTIONAL: No night sweats. No fatigue, malaise, lethargy. No fever or chills. HEENT: Eyes: No visual changes. No eye pain. No eye discharge. ENT: No runny nose. No epistaxis. No sinus pain. No sore throat. No odynophagia. No congestion. RESPIRATORY: No cough, no congestion. No hemoptysis. Shortness of breath. CARDIOVASCULAR: No angina symptoms. No CHF symptoms. No atypical chest pain for CAD. No palpitations. No PND. No orthopnea. GASTROINTESTINAL: No abdominal pain. No nausea or vomiting. Constipation. No hematemesis. No hematochezia. Acid reflux. GENITOURINARY: No urgency. No frequency. No dysuria. No hematuria. No obstructive symptoms. No discharge. No pain. No significant abnormal bleeding. MUSCULOSKELETAL: No musculoskeletal pain; no joint swelling. NEUROLOGICAL: No headache. No neck pain. No syncope. No seizures. No dizziness. PSYCHIATRIC: Not anxious. No depression. No suicidal thoughts. No homicidal thoughts. SKIN: No rash. No lesions. No wounds. ENDOCRINE: No unexplained weight loss. No weight gain. HEMATOLOGIC/LYMPHATIC: No anemia. No purpura. No petechiae. No prolonged or excessive bleeding. No palpable lymph nodes. PHYSICAL EXAMINATION: HEENT: Head normocephalic, atraumatic. Eyes: Extraocular muscles are intact. Pupils are equal, round and reactive to light and accommodation. Ears: No lesions. Nose appeared normal. Throat: No exudate or erythema. NECK: Supple. No JVD, no carotid bruit. No lymphadenopathy or thyromegaly. LUNGS: Diminished breath sounds and no wheezing. Clear to auscultation. Percussion note normal. Chest symmetrical. HEART: S1, S2, no S3. No murmurs. No cyanosis or clubbing. No ascites. Pulses: Dorsalis pedis and posterior tibial pulses +1 to +2 bilaterally. ABDOMEN: Soft. Nontender. Bowel sounds active. No CVA tenderness. No mass felt. EXTREMITIES: No edema. Full range of motion of all extremities, equal. NEUROLOGIC: No focal deficit. Cranial nerves II through XII are grossly intact. No headache. No double vision. SKIN: Not dry. Intact. Turgor - normal. LYMPHATIC: No palpable lymph nodes/no lymphedema. MUSCULOSKELETAL: Normal joints with no swelling. Muscle tone is normal. LABS: Hgb 14, hct 40, Sodium 128 which is stable, potassium 4.7, BUN 24, creatinine 1.1, ASSESSMENT: 1. Acute COPD exacerbation 2. Chronic respiratory failure 3. Constipation 4. Hyponatremia 5. Acid Reflux PLAN: 1. 60ml Milk of Magnesia 2. Discontinue Lovenox 3. The patient is up and about on his own 4. Increase Protonix 40mg BID PO 5. Start Pepcid 20mg PO BID 6. We will follow closely TIME SPENT: More than 30 minutes. Plan and coordination of the patient's care discussed in the presence of nurse. NITIN
--- NOTE | 2021-03-06 13:13 | PN ---
DATE OF SERVICE: 03/04/2021 SUBJECTIVE: The patient having some issues with constipation. Did Milk of Mag yesterday and only had small bowel movement otherwise he is doing fine. REVIEW OF SYSTEMS: CONSTITUTIONAL: No night sweats. No fatigue, malaise, lethargy. No fever or chills. HEENT: Eyes: No visual changes. No eye pain. No eye discharge. ENT: No runny nose. No epistaxis. No sinus pain. No sore throat. No odynophagia. No congestion. RESPIRATORY: No cough, no congestion. No hemoptysis. Shortness of breath as usual. CARDIOVASCULAR: No angina symptoms. No CHF symptoms. No atypical chest pain for CAD. No palpitations. No PND. No orthopnea. GASTROINTESTINAL: No abdominal pain. No nausea or vomiting. Constipation. No hematemesis. No hematochezia. GENITOURINARY: No urgency. No frequency. No dysuria. No hematuria. No obstructive symptoms. No discharge. No pain. No significant abnormal bleeding. MUSCULOSKELETAL: No musculoskeletal pain; no joint swelling. NEUROLOGICAL: No headache. No neck pain. No syncope. No seizures. No dizziness. PSYCHIATRIC: Not anxious. No depression. No suicidal thoughts. No homicidal thoughts. SKIN: No rash. No lesions. No wounds. ENDOCRINE: No unexplained weight loss. No weight gain. HEMATOLOGIC/LYMPHATIC: No anemia. No purpura. No petechiae. No prolonged or excessive bleeding. No palpable lymph nodes. PHYSICAL EXAMINATION: HEENT: Head normocephalic, atraumatic. Eyes: Extraocular muscles are intact. Pupils are equal, round and reactive to light and accommodation. Ears: No lesions. Nose appeared normal. Throat: No exudate or erythema. NECK: Supple. No JVD, no carotid bruit. No lymphadenopathy or thyromegaly. LUNGS: Diminished breath sounds. Clear to auscultation. Percussion note normal. Chest symmetrical. HEART: S1, S2, no S3. No murmurs. No cyanosis or clubbing. No ascites. Pulses: Dorsalis pedis and posterior tibial pulses +1 to +2 bilaterally. ABDOMEN: Soft. Tender. Bowel sounds active. No CVA tenderness. No mass felt. EXTREMITIES: No edema. Full range of motion of all extremities, equal. NEUROLOGIC: No focal deficit. Cranial nerves II through XII are grossly intact. No headache. No double vision. SKIN: Not dry. Intact. Turgor - normal. LYMPHATIC: No palpable lymph nodes/no lymphedema. MUSCULOSKELETAL: Normal joints with no swelling. Muscle tone is normal. ASSESSMENT: 1. Constipation 2. Acute COPD exacerbation 3. Chronic respiratory failure 4. Hyponatremia PLAN: 1. Half bottle Mag Citrate 2. Glycerin suppository 3. Normal saline IV at 75cc an hour times one liter. 4. Will follow closely TIME SPENT: More than 30 minutes. Plan and coordination of the patient's care discussed in the presence of nurse. NITIN
--- NOTE | 2021-03-06 13:20 | PN ---
DATE OF SERVICE: 03/05/2021 SUBJECTIVE: The patient is still having issues with constipation and has had some small pellet like stools. Complaining of abdominal cramping which is just generalized. No actual acute pain. We will do CT of abdomen and pelvis with and without today. Another half bottle of Mag Citrate and do a enema. REVIEW OF SYSTEMS: CONSTITUTIONAL: No night sweats. No fatigue, malaise, lethargy. No fever or chills. HEENT: Eyes: No visual changes. No eye pain. No eye discharge. ENT: No runny nose. No epistaxis. No sinus pain. No sore throat. No odynophagia. No congestion. RESPIRATORY: No cough, no congestion. No hemoptysis. Shortness of breath as usual, back to baseline. CARDIOVASCULAR: No angina symptoms. No CHF symptoms. No atypical chest pain for CAD. No palpitations. No PND. No orthopnea. GASTROINTESTINAL: No abdominal pain. No nausea or vomiting.Constipation. No hematemesis. No hematochezia. GENITOURINARY: No urgency. No frequency. No dysuria. No hematuria. No obstructive symptoms. No discharge. No pain. No significant abnormal bleeding. MUSCULOSKELETAL: No musculoskeletal pain; no joint swelling. NEUROLOGICAL: No headache. No neck pain. No syncope. No seizures. No dizziness. PSYCHIATRIC: Not anxious. No depression. No suicidal thoughts. No homicidal thoughts. SKIN: No rash. No lesions. No wounds. ENDOCRINE: No unexplained weight loss. No weight gain. HEMATOLOGIC/LYMPHATIC: No anemia. No purpura. No petechiae. No prolonged or excessive bleeding. No palpable lymph nodes. PHYSICAL EXAMINATION: HEENT: Head normocephalic, atraumatic. Eyes: Extraocular muscles are intact. Pupils are equal, round and reactive to light and accommodation. Ears: No lesions. Nose appeared normal. Throat: No exudate or erythema. NECK: Supple. No JVD, no carotid bruit. No lymphadenopathy or thyromegaly. LUNGS: Diminished breath sounds. Clear to auscultation. Percussion note normal. Chest symmetrical. HEART: S1, S2, no S3. No murmurs. No cyanosis or clubbing. No ascites. Pulses: Dorsalis pedis and posterior tibial pulses +1 to +2 bilaterally. ABDOMEN: Soft. Slightly distended. Nontender. Bowel sounds active. No CVA tenderness. No mass felt. EXTREMITIES: No edema. Full range of motion of all extremities, equal. NEUROLOGIC: No focal deficit. Cranial nerves II through XII are grossly intact. No headache. No double vision. SKIN: Not dry. Intact. Turgor - normal. LYMPHATIC: No palpable lymph nodes/no lymphedema. MUSCULOSKELETAL: Normal joints with no swelling. Muscle tone is normal. ASSESSMENT: 1. Constipation 2. Acute COPD exacerbation 3. Chronic respiratory failure 4. Chronic hyponatremia PLAN: 1. Discontinue Rocephin 2. Start Omnicef 300mg BID 3. Discontinue Solu-Medrol 4. Start Prednisone 20mg PO BID 5. Half bottle Mag Citrate 6. Enema 7. CT of the abdomen and pelvis with and without 8. Nursing staff to call me with results. TIME SPENT: More than 30 minutes. Plan and coordination of the patient's care discussed in the presence of nurse. NITIN
--- NOTE | 2021-03-06 14:35 | PN ---
DATE OF SERVICE: 03/06/2021 SUBJECTIVE: The patient was seen and examined this morning with Nurse Practitioner. The patient was hospitalized with severe constipation which seems to be resolving. His respiratory status is normal. COVID negative. TIME SPENT: More than 30 minutes. Plan and coordination of the patient's care discussed in the presence of nurse. NITIN
[2021-03-06] MEDS: NORVASC PO SCH (22:00)
[2021-03-06] MEDS: ASPIRIN EC PO SCH (22:00)
[2021-03-06] MEDS: FLOMAX PO SCH (22:00)
[2021-03-07] MEDS: PULMICORT 0.5 MG/2 ML NEB SCH (04:10)
[2021-03-07] MEDS: DUONEB NEB SCH ×3 (04:10→14:24)
[2021-03-07 05:13] VITALS: BP 137/80; TEMP 97.6
[2021-03-07 05:23] LABS: BASOPHILS % (AUTO) 0.2 % (0.0-3.0); HEMATOCRIT 38.8 % (42.0-52.0); HEMOGLOBIN 13.3 g/dl (14.0-18.0); IMMATURE GRANULOCYTE # (AUTO) 0.1 (0.0-1.0); IMMATURE GRANULOCYTE % (AUTO) 2.1 % (0.0-5.0); LYMPHOCYTES # (AUTO) 0.9 K/uL (0.60-3.4); LYMPHOCYTES % (AUTO) 20.6 (10.0-50.0); MEAN CORPUSCULAR HEMOGLOBIN 31.3 pg (27.0-31.0); MEAN CORPUSCULAR HGB CONC 34.3 (31.8-35.4); MEAN CORPUSCULAR VOLUME 91.3 fl (80.0-94.0); MONOCYTES # (AUTO) 0.3 K/uL (0.4-2.0); MONOCYTES % (AUTO) 7.6 (0-10); NEUTROPHILS % (AUTO) 69.5 % (42.2-75.2); PLATELET COUNT 211 10^3/uL (140-440); RDW COEFFICIENT OF VARIATION 13.2 % (11.6-14.8); RED BLOOD COUNT 4.25 10^6/ul (4.70-6.10); WHITE BLOOD COUNT 4.33 K/ul (4.2-10.2)
[2021-03-07 05:35] LABS: ALANINE AMINOTRANSFERASE 19.1 U/L (0-50); ALBUMIN 3.34 g/dL (3.5-5.0); ALKALINE PHOSPHATASE 39.5 U/L (56-119); ASPARTATE AMINO TRANSFERASE 17.5 U/L (17-59); BILIRUBIN,TOTAL 0.47 mg/dL (0.2-1.3); BLOOD UREA NITROGEN 26.2 mg/dL (9-20); CALCIUM 8.51 mg/dL (8.4-10.2); CARBON DIOXIDE 28.6 mmol/L (22-30.0); CHLORIDE 93.8 mmol/L (98-107); CREATININE 0.97 mg/dL (0.60-1.10); GLUCOSE 115.6 mg/dL (74-106); POTASSIUM 4.73 mmol/L (3.5-5.1); SODIUM 124.4 mmol/L (134.5-145); TOTAL PROTEIN 5.44 g/dL (6.3-8.2)
[2021-03-07] MEDS: LASIX TAB PO SCH (05:35)
[2021-03-07] MEDS: PROTONIX PO SCH (05:35)
[2021-03-07] MEDS: PEPCID PO SCH (05:35)
[2021-03-07] MEDS: MIRALAX PO SCH (09:22)
[2021-03-07] MEDS: COREG PO SCH (09:23)
[2021-03-07] MEDS: OMNICEF PO SCH (09:23)
[2021-03-07] MEDS: XANAX PO SCH (09:23)
[2021-03-07] MEDS: CATAPRES PO SCH (09:23)
[2021-03-07] MEDS: MUCINEX PO SCH (09:23)
[2021-03-07] MEDS: COZAAR PO SCH (09:23)
[2021-03-07] MEDS: PREDNISONE PO SCH (09:24)
[2021-03-07] MEDS: MINOXIDIL PO SCH (09:24)
[2021-03-07] MEDS: LEXAPRO PO SCH (09:24)
[2021-03-07] MEDS: MICRO-K CAP PO SCH (09:24)
--- NOTE | 2021-03-07 09:31 | PCM.PROG ---
Attending Provider: ATTENDING PROVIDER: Dr. DAMON DAVIS This patient is seen with Debbie Garcia, Nurse Practitioner. DATE OF SERVICE: 03/07/21 SUBJECTIVE: This 80 year old /WHITE M was hospitalized 03/01/21. Respiratory status is stable. Still very anxious. The patient would like appointment with Dr. Greene due to change in bowel habits. REVIEW OF SYSTEMS: CONSTITUTIONAL: No night sweats. No fatigue, malaise, lethargy. No fever or chills. HEENT: Eyes: No visual changes. No eye pain. No eye discharge. ENT: No runny nose. No epistaxis. No sinus pain. No odynophagia. No congestion. RESPIRATORY: No cough, no congestion. No hemoptysis. No shortness of breath. CARDIOVASCULAR: No angina symptoms. No CHF symptoms. No atypical chest pain for CAD. No palpitations. No orthopnea.. GASTROINTESTINAL: No abdominal pain. No nausea or vomiting. No diarrhea or constipation. No hematemesis. No hematochezia. GENITOURINARY: No urgency. No frequency. No dysuria. No hematuria. No obstructive symptoms. No discharge. No pain. No significant abnormal bleeding. MUSCULOSKELETAL: No musculoskeletal pain; no joint swelling. NEUROLOGICAL: Awake, alert, oriented to time, place and person. No headache. No neck pain. No syncope. No seizures. No dizziness. PSYCHIATRIC: Anxious. No depression. No suicidal thoughts. No homicidal thoughts. SKIN: No rash. No lesions. No wounds. ENDOCRINE: No unexplained weight loss. No weight gain. HEMATOLOGIC/LYMPHATIC: No anemia. No purpura. No petechiae. No prolonged or excessive bleeding. No palpable lymph nodes. PHYSICAL EXAMINATION: GENERAL: The patient is awake, alert and oriented, sitting in bed in no dis tress. VITAL SIGNS: Temperature 97.6 F, Pulse 68, Respiratory Rate 18, BP 137/80, Pulse Ox 93% HEENT: Head normocephalic, atraumatic. Eyes: Extraocular muscles are intact. Pupils are equal, round and reactive to light and accommodation. Ears: No lesions. Nose appeared normal. Throat: No exudate or erythema. NECK: Supple. No JVD, no carotid bruit. No lymphadenopathy or thyromegaly. LUNGS: Diminished breath sounds. Clear to auscultation. Percussion note normal. Chest symmetrical. HEART: S1, S2, no S3. No murmurs. No cyanosis or clubbing. No ascites. Pulses: Dorsalis pedis and posterior tibial pulses +1 to +2 both sides. ABDOMEN: Soft. Non-tender. Bowel sounds active. No CVA tenderness. No mass felt. EXTREMITIES: No edema. Full range of motion of all extremities, equal. NEUROLOGIC: No focal deficit. Cranial nerves II through XII are grossly intact. No headache. No double vision. SKIN: Not dry. Intact. Turgor-normal. LYMPHATIC: No palpable lymph nodes/no lymphedema. MUSCULOSKELETAL: Normal joints with no swelling. Muscle tone is normal. LAB REVIEW: 03/07/21 04:15 03/07/21 04:15 03/07/21 04:15: Sodium 124.4 L, Potassium 4.73, Chloride 93.8 L, Carbon Dioxide 28.6, Anion Gap 6.73, BUN 26.2 H, Creatinine 0.97, Estimated GFR (MDRD) 74.00, BUN/Creatinine Ratio 27.01, Glucose 115.6 H, Calcium 8.51, Total Bilirubin 0.47, AST 17.5, ALT 19.1, Alkaline Phosphatase 39.5 L, Total Protein 5.44 L, Albumin 3.34 L, Globulin 2.10, Albumin/Globulin Ratio 1.59 03/07/21 04:15: WBC 4.33, RBC 4.25 L, Hgb 13.3 L, Hct 38.8 L, MCV 91.3, MCH 31.3 H, MCHC 34.3, RDW Coeff of Bhaskar 13.2, Plt Count 211, Immature Gran % (Auto) 2.1, Neut % (Auto) 69.5, Lymph % (Auto) 20.6, [place] % (Auto) 7.6, Eos % (Auto) 0.0, Baso % (Auto) 0.2, Neut # (Auto) 3.0, Lymph # (Auto) 0.9, [place] # (Auto) 0.3 L, Eos # (Auto) 0.0, Baso # (Auto) 0.0, Immature Gran # (Auto) 0.1 03/06/21 07:50: Sodium 126.2 L, Potassium 4.83, Chloride 91.8 L, Carbon Dioxide 31.0 H, Anion Gap 8.23, BUN 27.9 H, Creatinine 1.05, Estimated GFR (MDRD) 68.00, BUN/Creatinine Ratio 26.57, Glucose 99.0, Calcium 8.76 ASSESSMENT: Please see below. 1. Acute COPD exacerbation, improved 2. Anxiety 3. Chronic hyponatremia, asymptomatic 4. Change in bowel habits. PLAN: 1. Discharge home 2. Omnicef 300mg BID for 5 days 3. Prednisone 10mg BID for 5 days 4. Continue Miralax BID 5. Refer to Dr. Greene 6. Encourage not to drink as much fluids. Plan and coordination of the patient's care discussed in the presence of [employer] and nurse. SCRIBED BY: Valentin VELEZ scribed while in presence of service performed by Dr. Gonzalez/Debbie Garcia APRN on 03/07/21 ([id number])
--- NOTE | 2021-03-07 14:39 | PN ---
DATE OF SERVICE: 03/05/2021 SUBJECTIVE: The patient was seen and examined today. His condition has improved. He has been able to move this bowel the last couple of days. He was admitted with severe constipation which also effected his breathing. He has severe chronic end stage chronic lung disease gets effected with his problem with the bowels and distended abdomen. He has no distress. He is breathing better. He is moving his bowels in little amount for last couple of days. He is feeling a lot better, passing gas. CAT scan of the abdomen did not show any obstruction just showed constipation. The patient does not have any symptoms of CHF or CAD. TIME SPENT: More than 30 minutes. Plan and coordination of the patient's care discussed in the presence of nurse. NITIN
--- NOTE | 2021-03-08 09:58 | PN ---
DATE OF SERVICE: 03/07/2021 SUBJECTIVE: The patient was seen and examined with the Nurse Practitioner. The patient still is somewhat constipated. The patient is going to see Dr. Greene, his oil fire specialist for followup because of change in bowel habits. The patient has no signs of any bowel obstruction. Respiratory status is stable. TIME SPENT: More than 30 minutes. Plan and coordination of the patient's care discussed in the presence of nurse. NITIN
--- NOTE | 2021-03-15 09:44 | DS ---
DATE OF SERVICE: 03/07/2021 FINAL DIAGNOSIS: 1. COPD exacerbation 2. Hyponatremia 3. Constipation 4. End stage COPD, oxygen dependent 5. Chronic respiratory failure 6. Bibasilar pneumonia (12/2020) 7. Coronary artery disease with stent 8. Hypertension 9. Palpitations 10.Anxiety 11.Secondary polycythemia, (history of therapeutic phlebotomy) 12.Sleep apnea, uses Trilogy 13.Benign prostatic hypertrophy (Dr. Oconnor) 14.Hyperglycemia 15.Right sciatica 16.Degenerative disc disease 17.Diverticulosis per CT abdomen (03/2020) 18.Cardiac stent application, 1999 19.Bilateral Cataract extraction, 2014 20.Cholecystectomy 21.Skin cancer removed from nose(MOHS procedure) 09/2020 22.Echocardiogram, 10/17/2020 23.LVH 24.Enlarged right ventricle 25.LVEF 75% LAST VITALS: Temperature 97.6, pulse 68, respiratory rate 18, blood pressure 137/80 and oxygen saturation 97%. DISCHARGE INSTRUCTIONS: Discharge home today. Continue to use Home nebulizer treatments at least 3-4 times daily. Continue to use smart compression vest as instructed (after at least two neb treatments daily). Continue to use home oxygen at 3 liters while at rest and may increase to 4-5 liters. Continue to use home Trilogy at night and PRN during the day when resting/sleeping. An appointment is scheduled with Dr. Gonzalez/Debbie Garcia APRN/Margaret Hutchinson APRN on March 16, 2021 at 11:30am. An appointment is scheduled with Dr. Greene/Re Craft APRN on March 28, 2021 at 12:45pm. CODE STATUS: Do not resuscitate. MEDICATIONS AT DISCHARGE: Systane eye drop one drop both eyes 5 times a day as needed Albuterol HFA two puffs Q 4-6 hours PRN Albuterol nebulizer RTTID scheduled Alprazolam 0.5mg PO BID Amlodipine 5mg PO BEDTIME Aspirin 81mg PO bedtime Budesonide 0.5mg NEB RT daily Carvedilol 6.25mg PO BID Clonidine 0.1mg PO TID Escitalopram 10mg PO daily Furosemide 20mg PO QDAC Guaifenesin 600mg PO BID Losartan 100mg pO daily Magnesium Hydroxide 30-60ml PO every 2-3 days PRN Minoxidil 5mg PO BID Pantoprazole 40mg PO daily Polyethylene Glycol 17 gram PO BID Potassium Chloride 10meq PO daily Tamsulosin 0.8mg PO Bedtime Stiolto Respimat two puffs daily NEW PRESCRIPTIONS: Cefdinir 300mg PO Q 12 hours for 5 days Prednisone 10mg PO BID for 5 days ALLERGIES: Levofloxacin DISCONTINUED MEDICATIONS: None MEDICATION CHANGES: Increase Miralax to 17grams BID DIET INSTRUCTIONS: Regular diet as tolerated, incorporate fiber in diet. Drink adequate liquids, but not in excess SMOKING: N/A DISEASE SPECIFIC EDUCATION: Constipation COPD exacerbation Appointments HOSPITAL COURSE: This is a white male who presented to the emergency room with worsening shortness of breath. He was admitted by the hospitalist initially. The chest x- ray showed increase in a perihilar opacity. No CT was done. He was placed on Rocephin and Zithromax and also started on IV Solu-Medrol 60mg Q 12 hours. Over the course of the next several days his breathing steadily improved. His ABG showed oxygen of 91% on 5 liters initially which he has been on 4-5 liters at home for some time now as he does have chronic respiratory failure. He also had some abdominal discomfort and some constipation while being admitted. He was given Miralax, Mag Citrate, two suppositories, an enema and finally had some relief. We did do a CAT Scan of the abdomen and pelvis which showed no acute process. He is still very anxious and very worked up about his change in bowel habits although we have reassured him after he had a large stool things seem to be back to normal. We will refer him to Dr. Greene for change in his bowel habits. I did attempt to increase his Xanax to 0.25mg three times a day in hopes to ease some of his anxiety but again he is a very anxious person. From a respiratory stand point he is stable. He is back to baseline. Renal function is normal. He is having bowel movements. Again, CAT scan was normal. He will be discharged home. He already has 7 days of antibiotics so he will be discharged home without any antibiotics or steroids. I have instructed him to do Miralax twice a day. He is on Protonix twice a day already for acid reflux and we will followup with him in the office next week and he has an appointment to see Dr. Greene later this month for GI. TIME SPENT: More than 60 minutes. NITIN
== END 2021-03-07 15:01 | disposition home or self-care (01) | DRG 191 ==
LOC: ED 10:12 → MEDSURG A 14:37
PROVIDERS: ADMIT Emergency Medicine; ATTEND Emergency Medicine
DX: G47.33 Obstructive sleep apnea (adult) (pediatric); J96.10 Chronic respiratory failure, unspecified whether with hypoxia or hypercapnia; Z20.822 Contact with and (suspected) exposure to COVID-19; Z99.81 Dependence on supplemental oxygen; I25.10 Atherosclerotic heart disease of native coronary artery without angina pectoris; F41.9 Anxiety disorder, unspecified; J44.1 Chronic obstructive pulmonary disease with (acute) exacerbation; R00.2 Palpitations; D75.1 Secondary polycythemia; I50.1 Left ventricular failure, unspecified; Z95.5 Presence of coronary angioplasty implant and graft; E87.1 Hypo-osmolality and hyponatremia

== ENCOUNTER 2021-04-25 14:12 | Inpatient (IN) ==
[2021-04-25] MEDS ORDERED: SOLU-MEDROL 125 MG IVP ONE (15:26)
--- NOTE | 2021-04-25 15:26 | ED.PDOC ---
General ED Provider: Dr. DAMON DAVIS Chief Complaint: Respiratory Complaint Stated Complaint: SOB difficulty breathing Also complaining leg cramping and anxiety Time Seen by Provider: 04/25/21 14:45 Mode of Arrival: Ambulance Information Source: Patient and EMT Exam Limitations: No limitations and Clinical condition Primary Care Provider: HAILEY GONZALEZ Seen Within Last 72 Hours for Same Complaint By: ED Nursing and Triage Documentation Reviewed and Agree: Yes Does patient meet sepsis criteria?: No If yes, has appropriate treatment been initiated?: No System Inflammatory Response Syndrome: Not Applicable Sepsis Protocol: For patient's 13 years and over: Temp is 96.8 and below OR 101 and greater Pulse >90 BPM Resp >20/minute Acutely Altered Mental Status Are patient's symptoms suggestive of a new infection, such as: -Pneumonia -Skin, Soft Tissue -Endocarditis -UTI -Bone, Joint Infection -Implantable Device -Acute Abdominal Infection -Wound Infection -Meningitis -Blood Stream Catheter Infection -Unknown Respiratory Complaint Exam Shortness of Air Complaint/Exam Onset/Duration: Earlier today Symptoms Are: Still present Timing: Constant Initial Severity: Moderate Current Severity: Moderate Character: Reports Dyspnea at rest and Dyspnea on exertion Aggravating: Reports Movement, Deep breaths and Recumbent position Alleviating: Reports Bronchodilators, Oxygen and Upright position Associated Signs and Symptoms: Reports Cough, Wheezing and Nasal congestion Related History: Reports Similar episode Pulmonary Embolism Risk Factors: Reports None Cardiac Risk Factors: Reports None Pseudomonas Risk Factors: Reports None Tuberculosis Risk Factors: Reports None Recent Stress Test: No Recent Echo/LV Function: No Respiratory Distress: Mild Stridor Present: No Tracheal Deviation: No Subcutaneous Emphysema: No Accessory Muscle Use: No Retractions: Not Present Diminished Breath Sounds: Yes Prolonged Expiratory Phase: No Unable to Speak Full Sentences: No Fatigue: Yes Leg Swelling: Yes Nohemy's Sign Present: No Grunting Respirations: No Kussmaul Respirations: No Differential Diagnoses: Chest Wall Pain and COPD Exacerbation Related Surgical History: Reports None Review of Systems Review Of Systems Constitutional: Reports No symptoms, Malaise and Weakness Eyes: Reports No symptoms Ears, Nose, Mouth, Throat: Reports No symptoms Respiratory: Reports Cough, Short of air and Wheezing Cardiac: Reports No symptoms GI: Reports No symptoms : Reports No symptoms Musculoskeletal: Reports No symptoms Skin: Reports No symptoms Neurological: Reports Anxiety Endocrine: Reports No symptoms All Other Systems: Reviewed and Negative PFSH Medical History Anxiety Arteriosclerosis Blood disease BPH (benign prostatic hyperplasia) CAD (coronary artery disease) Cancer of skin of external nose (~10/04/20) Chronic bronchitis Chronic hyponatremia Chronic respiratory failure CKD (chronic kidney disease) stage 3, GFR 30-59 ml/min COPD (chronic obstructive pulmonary disease) Diverticulosis Emphysema of lung Enlarged heart Gastroesophageal reflux disease Hypertension Osteoarthritis Oxygen dependent Prostate enlargement Sciatica, right side Seasonal allergies Secondary polycythemia Sleep apnea TMJ (temporomandibular joint disorder) Family History Mother Obstetric anesthesia problems Emphysema of lung Social History Smoking and tobacco status: Former smoker History of recent travel: No Surgical History History of bilateral cataract extraction History of coronary artery stent placement History of tonsillectomy Physical Exam Physical Exam Appearance: Reports Ill-appearing, Thin and Cachectic Ill-appearing: Severe Pain Distress: Mild Eyes: Reports ABDIAS, EOMI, Conjunctiva clear, Conjunctiva pale and Right pupil size (PERL_A) ENT: Reports Ears normal, Oropharynx normal and TMs Occluded Neck: Supple Respiratory: Reports Airway patent, Breath sounds diminished and Wheezes Cardiovascular: Reports RRR and No murmur GI/: Reports Soft, Nontender and No masses Musculoskeletal: Reports Normal strength, ROM intact, No edema, No calf tenderness and Other (bilat thigh tenderndess) Skin: Reports Warm, Dry and Normal color Neurological: Reports Sensation intact, Motor intact, Reflexes intact, Cranial nerves intact, Alert and Oriented Psychiatric: Reports Affect appropriate and Mood appropriate Interpretation Radiology Interpretation Exam Interpreted: CXR (Redemonstration of right lower lung field atelectasis/scarring. 2. No focal consolidation, large pleural effusion, or discernible pneumothorax. 3. 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) Physician Notification Case Discussed Physician Notified: Gonzalez Time of Notification: 17:00 Comments: Agrees to admit Critical Care Note Critical Care Note Total Critical Care Time (mins): 30 Course Course Hematology/Chemistry: 04/26/21 06:25 04/25/21 15:45 Orders, Labs, Meds: Lab Review 04/25/21 04/25/21 04/25/21 15:40 15:45 15:45 WBC 6.87 RBC 4.71 Hgb 14.7 Hct 41.9 L MCV 89.0 MCH 31.2 H MCHC 35.1 RDW Coeff of Bhaskar 12.9 Plt Count 190 Immature Gran % (Auto) 0.3 Neut % (Auto) 79.7 H Lymph % (Auto) 14.4 Geary % (Auto) 5.5 Eos % (Auto) 0.0 Baso % (Auto) 0.1 Neut # (Auto) 5.5 Lymph # (Auto) 1.0 Geary # (Auto) 0.4 Eos # (Auto) 0.0 Baso # (Auto) 0.0 Immature Gran # (Auto) 0.0 Puncture Site Rr Base Excess 1.9 O2 Saturation 96.3 ABG pH 7.37 ABG pCO2 47.0 H ABG pO2 87.0 ABG HCO3 27.2 ABG Total CO2 28.6 H Albino Test Pos Hemoglobin 1.0 Oxyhemoglobin 95.4 Carboxyhemoglobin 1.9 H Total Hemoglobin 15.1 O2 Delivery Device Cannula Oxygen Liter Flow 5.00 Sodium 128.0 L Potassium 4.70 Chloride 94.0 L Carbon Dioxide 26.0 Anion Gap 12.70 BUN 15.0 Creatinine 1.00 Estimated GFR (MDRD) 72.00 BUN/Creatinine Ratio 15.00 Glucose 104.0 Lactic Acid Calcium 9.80 Magnesium 1.85 Total Bilirubin 0.70 AST 24.0 ALT 21.0 Alkaline Phosphatase 58.0 Total Creatine Kinase 69.7 Troponin I < 0.012 Total Protein 7.50 Albumin 4.50 Globulin 3.00 Albumin/Globulin Ratio 1.50 Urine Color Urine Clarity Urine pH Ur Specific [place] Urine Protein Urine Glucose (UA) Urine Ketones Urine Blood Urine Nitrite Urine Bilirubin Urine Urobilinogen Ur Leukocyte Esterase Urine Microscopic RBC Urine Microscopic WBC Ur Squamous Epith Cells Urine Opiates Screen Ur Oxycodone Screen Urine Methadone Screen Ur Propoxyphene Screen Ur Barbiturates Screen U Tricyclic Antidepress Ur Phencyclidine Scrn Ur Amphetamine Screen U Methamphetamines Scrn U Benzodiazepines Scrn Urine Cocaine Screen U Cannabinoids Screen Adenovirus (PCR) B. pertussis DNA (PCR) B.parapertussis DNA PCR C. pneumoniae DNA (PCR) Coronavirus OC43 (PCR) Coronavirus HKU1 (PCR) Coronavirus 229E (PCR) Coronavirus NL63 (PCR) Human Metapneumovir PCR Influenza Type A (PCR) Influ A Molecular Assay Influenza B (RT-PCR) Influ B Molecular Assay M. pneumoniae (PCR) Parainfluenza 1 (PCR) Parainfluenza 2 (PCR) Parainfluenza 3 (PCR) Parainfluenza 4 (PCR) RSV (PCR) Entero/Rhino (PCR) SARS-CoV-2 (PCR) 04/25/21 04/25/21 04/25/21 15:45 16:29 18:15 WBC RBC Hgb Hct MCV MCH MCHC RDW Coeff of Bhaskar Plt Count Immature Gran % (Auto) Neut % (Auto) Lymph % (Auto) Geary % (Auto) Eos % (Auto) Baso % (Auto) Neut # (Auto) Lymph # (Auto) Geary # (Auto) Eos # (Auto) Baso # (Auto) Immature Gran # (Auto) Puncture Site Base Excess O2 Saturation ABG pH ABG pCO2 ABG pO2 ABG HCO3 ABG Total CO2 Albino Test Hemoglobin Oxyhemoglobin Carboxyhemoglobin Total Hemoglobin O2 Delivery Device Oxygen Liter Flow Sodium Potassium Chloride Carbon Dioxide Anion Gap BUN Creatinine Estimated GFR (MDRD) BUN/Creatinine Ratio Glucose Lactic Acid 0.80 Calcium Magnesium Total Bilirubin AST ALT Alkaline Phosphatase Total Creatine Kinase Troponin I Total Protein Albumin Globulin Albumin/Globulin Ratio Urine Color Yellow Urine Clarity Clear Urine pH 7.0 Ur Specific [place] 1.020 Urine Protein Trace H Urine Glucose (UA) Negative Urine Ketones Negative Urine Blood Trace-intact H Urine Nitrite Negative Urine Bilirubin Negative Urine Urobilinogen 0.2 Ur Leukocyte Esterase Negative Urine Microscopic RBC 2-5 Urine Microscopic WBC 0-2 Ur Squamous Epith Cells Not present Urine Opiates Screen Ur Oxycodone Screen Urine Methadone Screen Ur Propoxyphene Screen Ur Barbiturates Screen U Tricyclic Antidepress Ur Phencyclidine Scrn Ur Amphetamine Screen U Methamphetamines Scrn U Benzodiazepines Scrn Urine Cocaine Screen U Cannabinoids Screen Adenovirus (PCR) B. pertussis DNA (PCR) B.parapertussis DNA PCR C. pneumoniae DNA (PCR) Coronavirus OC43 (PCR) Coronavirus HKU1 (PCR) Coronavirus 229E (PCR) Coronavirus NL63 (PCR) Human Metapneumovir PCR Influenza Type A (PCR) Influ A Molecular Assay Negative by naat Influenza B (RT-PCR) Influ B Molecular Assay Negative by naat M. pneumoniae (PCR) Parainfluenza 1 (PCR) Parainfluenza 2 (PCR) Parainfluenza 3 (PCR) Parainfluenza 4 (PCR) RSV (PCR) Entero/Rhino (PCR) SARS-CoV-2 (PCR) 04/25/21 04/25/21 18:15 18:21 WBC RBC Hgb Hct MCV MCH MCHC RDW Coeff of Bhasakr Plt Count Immature Gran % (Auto) Neut % (Auto) Lymph % (Auto) Geary % (Auto) Eos % (Auto) Baso % (Auto) Neut # (Auto) Lymph # (Auto) Geary # (Auto) Eos # (Auto) Baso # (Auto) Immature Gran # (Auto) Puncture Site Base Excess O2 Saturation ABG pH ABG pCO2 ABG pO2 ABG HCO3 ABG Total CO2 Albino Test Hemoglobin Oxyhemoglobin Carboxyhemoglobin Total Hemoglobin O2 Delivery Device Oxygen Liter Flow Sodium Potassium Chloride Carbon Dioxide Anion Gap BUN Creatinine Estimated GFR (MDRD) BUN/Creatinine Ratio Glucose Lactic Acid Calcium Magnesium Total Bilirubin AST ALT Alkaline Phosphatase Total Creatine Kinase Troponin I Total Protein Albumin Globulin Albumin/Globulin Ratio Urine Color Urine Clarity Urine pH Ur Specific [place] Urine Protein Urine Glucose (UA) Urine Ketones Urine Blood Urine Nitrite Urine Bilirubin Urine Urobilinogen Ur Leukocyte Esterase Urine Microscopic RBC Urine Microscopic WBC Ur Squamous Epith Cells Urine Opiates Screen Negative Ur Oxycodone Screen Negative Urine Methadone Screen Negative Ur Propoxyphene Screen Negative Ur Barbiturates Screen Negative U Tricyclic Antidepress Negative Ur Phencyclidine Scrn Negative Ur Amphetamine Screen Negative U Methamphetamines Scrn Negative U Benzodiazepines Scrn Positive H Urine Cocaine Screen Negative U Cannabinoids Screen Negative Adenovirus (PCR) Not detected B. pertussis DNA (PCR) Not detected B.parapertussis DNA PCR Not detected C. pneumoniae DNA (PCR) Not detected Coronavirus OC43 (PCR) Not detected Coronavirus HKU1 (PCR) Not detected Coronavirus 229E (PCR) Not detected Coronavirus NL63 (PCR) Not detected Human Metapneumovir PCR Not detected Influenza Type A (PCR) Not detected Influ A Molecular Assay Influenza B (RT-PCR) Not detected Influ B Molecular Assay M. pneumoniae (PCR) Not detected Parainfluenza 1 (PCR) Not detected Parainfluenza 2 (PCR) Not detected Parainfluenza 3 (PCR) Not detected Parainfluenza 4 (PCR) Not detected RSV (PCR) Not detected Entero/Rhino (PCR) Not detected SARS-CoV-2 (PCR) Not detected Orders Category Date Time Status [facility] ADMISSION 04/25/21 18:18 Active ABG DRAW REQUEST Stat CARDIO 04/25/21 15:26 Completed EKG-(ED ONLY) Stat CARDIO 04/25/21 15:27 Completed METERED DOSE INHALATION Routine CARDIO 04/25/21 15:28 Completed OXYGEN Routine CARDIO 04/25/21 15:27 Active OXYGEN Routine CARDIO 04/25/21 18:22 Completed ACTIVITY .Complete BR CARE 04/25/21 18:23 Active BLOOD GLUCOSE MONITORING (MED/SURG) 0630,1100,1700,2100 CARE 04/25/21 18:24 Active INTAKE & OUTPUT Q8HR CARE 04/25/21 18:23 Active REMINDER: Give Insulin if Needed 0630,1100,1700,2200 CARE 04/25/21 18:22 Completed TELEMETRY MONITORING TELE CARE 04/25/21 18:18 Completed TELEMETRY MONITORING TELE CARE 04/25/21 18:23 Active VITAL SIGNS Q4HR CARE 04/25/21 18:23 Active 2 GRAM SODIUM DIET DIETARY 04/25/21 Dinner Ordered ABG COOX Stat LAB 04/25/21 15:40 Completed BLOOD CULTURE (ED ONLY) Stat LAB 04/25/21 15:45 Received CBC W/ AUTO DIFF DAILY@0600 LAB 04/26/21 06:25 Completed CBC W/ AUTO DIFF DAILY@0600 LAB 04/27/21 06:00 Ordered CBC W/ AUTO DIFF Stat LAB 04/25/21 15:45 Completed CMP [COMPREHENSIVE METABOLIC PANEL] Stat LAB 04/25/21 15:45 Completed COMPREHENSIVE METABOLIC PANEL DAILY@0600 LAB 04/26/21 06:25 Received COMPREHENSIVE METABOLIC PANEL DAILY@0600 LAB 04/27/21 06:00 Ordered CPK [CREATINE KINASE] Stat LAB 04/25/21 15:45 Completed CREATINE KINASE Q8H LAB 04/26/21 00:40 Completed CREATINE KINASE Q8H LAB 04/26/21 08:30 Ordered FLU A & B MOLECULAR [FLU A/B MOLECULAR] Stat LAB 04/25/21 16:29 Completed LACTIC ACID Stat LAB 04/25/21 15:45 Completed MAGNESIUM Stat LAB 04/25/21 15:45 Completed RAPID STREP SCREEN [MOLECULAR GROUP A STREP] Stat LAB 04/25/21 16:29 Completed SPUTUM CULTURE Stat LAB 04/25/21 22:00 Results TROPONIN I Q8H LAB 04/26/21 00:40 Completed TROPONIN I Q8H LAB 04/26/21 08:30 Ordered TROPONIN I Stat LAB 04/25/21 15:45 Completed UA [URINALYSIS C & S IF INDICATED] Stat LAB 04/25/21 18:15 Completed URINE DRUG SCREEN (RAPID FOR ED) [DRUG SCREEN, URINE, LAB 04/25/21 18:15 Completed RAPID] Stat Acetaminophen [Tylenol] MEDS 04/25/21 18:22 Active 650 mg PO Q4H PRN Albuterol Inhaler(with Spacer) [Ventolin Hfa (Per Puff- MEDS 04/25/21 15:28 Discontinued with Spacer)] 2 puff IH ONCE ONE Azithromycin [Zithromax] MEDS 04/25/21 18:22 Discontinued 500 mg PO ONCE STA Ceftriaxone/D5w 1 gm Premix [Rocephin 1 gm/50 ml D5w] MEDS 04/25/21 18:30 Discontinued 1 gm in 50 ml IV DAILY Clonidine HCl [Catapres] MEDS 04/25/21 15:54 Discontinued 0.1 mg PO ONCE ONE Ipratropium/Albuterol Neb [Duoneb] MEDS 04/25/21 20:00 Active 3 ml NEB RTQID Ketorolac Tromethamine [Toradol] MEDS 04/25/21 17:40 Discontinued 30 mg IVP ONCE STA Lorazepam [Ativan] MEDS 04/25/21 17:40 Discontinued 1 mg IVP ONCE STA Methylprednisolone Sod Succ/Pf [Solu-Medrol 125 mg] MEDS 04/25/21 15:26 D iscontinued 125 mg IVP ONCE ONE Methylprednisolone Sod Succ/Pf [Solu-Medrol 40 mg] MEDS 04/25/21 21:00 Active 40 mg IVP Q8HR Ondansetron HCl/Pf [Zofran 4 mg/2 ml] MEDS 04/25/21 18:22 Active 4 mg IVP Q6H PRN Ropinirole HCl [Requip] MEDS 04/25/21 18:31 Discontinued 0.25 mg PO ONCE STA Sodium Chloride 0.9% [Sodium Chloride] 1,000 ml MEDS 04/25/21 15:27 Discontinued IV BOLUS RESUSCITATION STATUS Routine OTHERS 04/25/21 18:22 Ordered CHEST, 1V AP ONLY Stat RADS 04/25/21 15:26 Completed OT CONSULTATION Routine THERAPIES 04/25/21 Ordered PT CONSULT Routine THERAPIES 04/25/21 Ordered Medications Generic Name Dose Route Start Last Admin Trade Name Krystin PRN Reason Stop Dose Admin Acetaminophen 650 mg 04/25/21 18:22 Acetaminophen 325 Mg Tablet PO Q4H PRN Fever >101 Albuterol/Ipratropium 3 ml 04/25/21 20:00 04/26/21 04:50 Ipratropium/Albuterol Vial.Neb NEB 3 ml RTQID BANDAR Administration Alprazolam 0.5 mg 04/25/21 22:00 04/25/21 22:45 Alprazolam 0.5 Mg Tablet PO 0.5 mg BID BANDAR Administration Amlodipine Besylate 5 mg 04/25/21 22:00 04/25/21 22:45 Amlodipine Besylate 5 Mg Tablet PO 5 mg BEDTIME BANDAR Administration Aspirin 81 mg 04/25/21 22:00 04/25/21 22:45 Aspirin 81 Mg Tablet.Dr PO 81 mg BEDTIME BANDAR Administration Carvedilol 6.25 mg 04/25/21 22:00 04/25/21 22:45 Carvedilol 6.25 Mg Tablet PO 6.25 mg BID BANDAR Administration Clonidine 0.1 mg 04/26/21 09:00 Clonidine Hcl 0.1 Mg Tablet PO TID BANDAR Escitalopram Oxalate 10 mg 04/26/21 09:00 Escitalopram Oxalate 10 Mg Tablet PO DAILY BANDAR Furosemide 20 mg 04/26/21 06:30 04/26/21 05:48 Furosemide 20 Mg Tablet PO 20 mg DAILY BANDAR Administration Guaifenesin 600 mg 04/25/21 22:00 04/25/21 22:44 Guaifenesin 600 Mg Tablet.Er PO 600 mg BID BANDAR Administration CEFTRIAXONE/D5W 1 GM PREMIX 1 gm in 50 mls @ 75 mls/hr 04/26/21 21:00 Rocephin 1 Gm/50 Ml D5w IV 04/28/21 18:29 BEDTIME BANDAR Losartan Potassium 100 mg 04/26/21 09:00 Losartan Potassium 100 Mg Tablet PO DAILY BANDAR Methylprednisolone Sodium Succinate 40 mg 04/25/21 21:00 04/26/21 05:47 Methylprednisolone Sod Succ/Pf 40 Mg/Ml Vial IVP 40 mg Q8HR BANDAR Administration Minoxidil 5 mg 04/25/21 22:00 04/25/21 22:44 Minoxidil 2.5 Mg Tablet PO 5 mg BID BANDAR Administration Ondansetron HCl 4 mg 04/25/21 18:22 Ondansetron Hcl/Pf 4 Mg/2 Ml Sdv IVP Q6H PRN Nausea / Vomiting Pantoprazole Sodium 40 mg 04/26/21 09:00 Pantoprazole Sodium 40 Mg Tablet.Dr PO DAILY BANDAR Polyethylene Glycol 17 gm 04/26/21 09:00 Polyethylene Glycol 17 Gm Powd.Pack PO BID BANDAR Potassium Chloride 10 meq 04/26/21 09:00 Potassium Chloride 10 Meq Capsule.Er PO DAILY BANDAR Sodium Chloride 1 syr 04/26/21 05:00 0.9% Sodium Chloride 10 Ml Disp.Syrin IVF Q8HR [facility] Sodium Chloride 1 syr 04/26/21 01:39 0.9% Sodium Chloride 10 Ml Disp.Syrin IVF PRN PRN as needed Tamsulosin HCl 0.8 mg 04/25/21 22:00 04/25/21 22:44 Tamsulosin Hcl 0.4 Mg Cap.Er.24h PO 0.8 mg BEDTIME BANDAR Administration Discontinued Medications Generic Name Dose Route Start Last Admin Trade Name Freq PRN Reason Stop Dose Admin Albuterol Sulfate 2 puff 04/25/21 15:28 04/25/21 16:11 Albuterol Sulfate (Ventolin Hfa) 18 Gm 1 Puff With Spacer IH 04/25/21 15:29 2 puff ONCE ONE Administration Azithromycin 500 mg 04/25/21 18:22 04/25/21 18:41 Azithromycin 250 Mg Tablet PO 04/25/21 18:23 500 mg ONCE STA Administration Clonidine 0.1 mg 04/25/21 15:54 04/25/21 16:28 Clonidine Hcl 0.1 Mg Tablet PO 04/25/21 15:55 0.1 mg ONCE ONE Administration Sodium Chloride 1,000 mls @ 500 mls/hr 04/25/21 15:27 04/25/21 16:27 Sodium Chloride IV 04/25/21 17:26 500 mls/hr BOLUS STA Administration CEFTRIAXONE/D5W 1 GM PREMIX 1 gm in 50 mls @ 75 mls/hr 04/25/21 18:30 04/25/21 18:42 Rocephin 1 Gm/50 Ml D5w IV 04/28/21 18:29 75 mls/hr DAILY BANDAR Administration Ketorolac Tromethamine 30 mg 04/25/21 17:40 04/25/21 17:49 Ketorolac Tromethamine 30 Mg/Ml Vial IVP 04/25/21 17:41 30 mg ONCE STA Administration Lorazepam 1 mg 04/25/21 17:40 04/25/21 17:49 Lorazepam Inj 2 Mg/Ml Vial IVP 04/25/21 17:41 1 mg ONCE STA Administration Methylprednisolone Sodium Succinate 125 mg 04/25/21 15:26 04/25/21 16:27 Methylprednisolone Sod Succ/Pf 125 Mg/2 Ml Vial IVP 04/25/21 15:27 125 mg ONCE ONE Administration Ropinirole HCl 0.25 mg 04/25/21 18:31 Ropinirole Hcl 0.25 Mg Tablet PO 04/25/21 18:32 ONCE STA Vital Signs: Temp Pulse Resp BP Pulse Ox 04/25/21 14:14 97.9 F 98 H 22 194/90 H 99 Discharge Plan Discharge Patient Disposition: ADMITTED INPATIENT Discharge Problem: Bilateral leg cramps, COPD with acute exacerbation ED Provider: DAMON DAVIS Condition: Good Physician Progress Note: []
[2021-04-25] MEDS ORDERED: SODIUM CHLORIDE 1,000 ML IV STA (15:27)
[2021-04-25] MEDS ORDERED: VENTOLIN HFA (PER PUFF-WITH SPACER) IH ONE (15:28)
[2021-04-25 15:49] LABS: BASOPHILS % (AUTO) 0.1 % (0.0-3.0); HEMATOCRIT 41.9 % (42.0-52.0); HEMOGLOBIN 14.7 g/dl (14.0-18.0); IMMATURE GRANULOCYTE % (AUTO) 0.3 % (0.0-5.0); LYMPHOCYTES % (AUTO) 14.4 (10.0-50.0); MEAN CORPUSCULAR HEMOGLOBIN 31.2 pg (27.0-31.0); MEAN CORPUSCULAR HGB CONC 35.1 (31.8-35.4); MONOCYTES # (AUTO) 0.4 K/uL (0.4-2.0); MONOCYTES % (AUTO) 5.5 (0-10); NEUTROPHILS # (AUTO) 5.5 K/ul (2.0-6.9); NEUTROPHILS % (AUTO) 79.7 % (42.2-75.2); PLATELET COUNT 190 10^3/uL (140-440); RDW COEFFICIENT OF VARIATION 12.9 % (11.6-14.8); RED BLOOD COUNT 4.71 10^6/ul (4.70-6.10); WHITE BLOOD COUNT 6.87 K/ul (4.2-10.2)
[2021-04-25] MEDS ORDERED: CATAPRES PO ONE (15:54)
[2021-04-25 15:55] LABS: ABG O2 HGB 95.4 % (95-100); ABG PH 7.37 (7.35-7.45); BEecf 1.9 (-2.0-3.0); COHb 1.9 (0.5-1.5); HCO3 27.2 (21-28); TCO2 28.6 (19-24); sO2 96.3 % (94-98); tHb 15.1 g/dl (11.7-17.4)
--- NOTE | 2021-04-25 16:13 | DI ---
EXAM: Single AP view of the chest 04/25/2021 HISTORY: Dyspnea. COMPARISON: 03/01/2021. FINDINGS: Again seen is plate-like atelectasis/scarring in the right lower lung field. There are calcified med iastinal and bilateral hilar lymph nodes. There are stable bilateral probable calcified granulomas i n the lungsThere is no focal consolidation or large pleural effusion. The trachea is midline. The cardiomediastinal silhouette is within the normal limits. The aorta is atherosclerotic. The osseous structures are intact. IMPRESSIONS: 1. Redemonstration of right lower lung field atelectasis/scarring. 2. No focal consolidation, large pleural effusion, or discernible pneumothorax. 3. Prior granulomatous disease.
[2021-04-25 16:14] LABS: CREATINE KINASE 69.7 U/L (55-170); MAGNESIUM 1.85 mg/dL (1.6-2.3)
[2021-04-25 16:29] LABS: TROPONIN I < 0.012 ng/ml (0.0000-0.120)
[2021-04-25 16:54] LABS: MOLECULAR FLU A NEGATIVE BY NAAT (NEGATIVE); MOLECULAR FLU B NEGATIVE BY NAAT (NEGATIVE)
[2021-04-25] MEDS ORDERED: TORADOL IM STA (17:36)
[2021-04-25] MEDS ORDERED: TORADOL IVP STA (17:40)
[2021-04-25] MEDS ORDERED: ATIVAN IVP STA (17:40)
[2021-04-25 18:22] LABS: BILIRUBIN,URINE Negative (NEGATIVE); CLARITY,URINE Clear (CLEAR); COLOR,URINE Yellow (YELLOW); GLUCOSE, URINE (UA) Negative (NEGATIVE); KETONES,URINE Negative (NEGATIVE); LEUKOCYTE ESTERASE ,URINE Negative (NEGATIVE); NITRITE,URINE Negative (NEGATIVE); PROTEIN,URINE Trace (NEGATIVE); URINE, BLOOD Trace-intact (NEGATIVE); UROBILINOGEN,URINE 0.2 (0.2)
[2021-04-25] MEDS ORDERED: ZOFRAN 4 MG/2 ML IVP PRN (18:22)
[2021-04-25] MEDS ORDERED: ZITHROMAX PO STA (18:22)
[2021-04-25] MEDS ORDERED: TYLENOL PO PRN (18:22)
[2021-04-25 18:28] LABS: BORDETELLA PARAPERTUSSIS (PCR) NOT DETECTED (NOT DETECT); BORDETELLA PERTUSSIS (PCR) NOT DETECTED (NOT DETECT); CHLAMYDIA PNEUMONIAE (PCR) NOT DETECTED (NOT DETECT); CORONAVIRUS 229E (PCR) NOT DETECTED (NOT DETECT); CORONAVIRUS HKU1 (PCR) NOT DETECTED (NOT DETECT); CORONAVIRUS NL63 (PCR) NOT DETECTED (NOT DETECT); CORONAVIRUS OC43 (PCR) NOT DETECTED (NOT DETECT); HUMAN METAPNEUMOVIRUS (PCR) NOT DETECTED (NOT DETECT); HUMAN RHINOVIRUS/ENTEROV (PCR) NOT DETECTED (NOT DETECT); INFLUENZA B (PCR) NOT DETECTED (NOT DETECT); MYCOPLASMA PNEUMONIAE (PCR) NOT DETECTED (NOT DETECT); PARAINFLUENZA VIRUS 1 (PCR) NOT DETECTED (NOT DETECT); PARAINFLUENZA VIRUS 2 (PCR) NOT DETECTED (NOT DETECT); PARAINFLUENZA VIRUS 3 (PCR) NOT DETECTED (NOT DETECT); PARAINFLUENZA VIRUS 4 (PCR) NOT DETECTED (NOT DETECT); RESPIRATORY SYNCYTIAL V (PCR) NOT DETECTED (NOT DETECT); SARS_COV_2 (PCR) NOT DETECTED (NOT DETECT)
[2021-04-25] MEDS ORDERED: ROCEPHIN 1 GM/50 ML D5W 1 GM/50 ML BAG IV SCH (18:30)
[2021-04-25 18:31] LABS: AMPHETAMINE SCREEN,URINE NEGATIVE (NEGATIVE); BARBITURATE SCREEN,URINE NEGATIVE (NEGATIVE); BENZODIAZEPINES SCREEN,URINE POSITIVE (NEGATIVE); METHADONE URINE SCREEN NEGATIVE (NEGATIVE); METHAMPHETAMINES SCREEN,URINE NEGATIVE (NEGATIVE); OPIATE SCREEN,URINE NEGATIVE (NEGATIVE); OXYCODONE URINE SCREEN NEGATIVE (NEGATIVE); PHENCYCLIDINE SCREEN,URINE NEGATIVE (NEGATIVE); PROPOXYPHENE URINE SCREEN NEGATIVE (NEGATIVE); SQUAMOUS EPITHELIAL CELL,UR NOT PRESENT (0-5); URINE WBC, MICROSCOPIC 0-2 (0-2)
[2021-04-25] MEDS ORDERED: REQUIP PO STA (18:31)
[2021-04-25 18:32] LABS: CANNABINOID SCREEN,URINE NEGATIVE (NEGATIVE); COCAIN SCREEN,URINE NEGATIVE (NEGATIVE); TRICYCLIC ANTIDEPRESSANTS URIN NEGATIVE (NEGATIVE)
[2021-04-25 19:17] LABS: ADENOVIRUS (PCR) NOT DETECTED (NOT DETECT)
[2021-04-25] MEDS: DUONEB NEB SCH (21:02)
[2021-04-25] MEDS ORDERED: COREG PO SCH (22:00)
[2021-04-25] MEDS ORDERED: ARTIFICIAL TEARS DROPS OP PRN (22:16)
[2021-04-25] MEDS: MUCINEX PO SCH (22:44)
[2021-04-25] MEDS: FLOMAX PO SCH (22:44)
[2021-04-25] MEDS: MINOXIDIL PO SCH (22:44)
[2021-04-25] MEDS: ASPIRIN EC PO SCH (22:45)
[2021-04-25] MEDS: XANAX PO SCH (22:45)
[2021-04-25] MEDS: NORVASC PO SCH (22:45)
[2021-04-25] MEDS: SOLU-MEDROL 40 MG IVP SCH (22:48)
[2021-04-26 00:18] VITALS: BMI 27.2
[2021-04-26 00:55] LABS: CREATINE KINASE 69.7 U/L (55-170)
[2021-04-26 01:09] LABS: TROPONIN I < 0.012 ng/ml (0.0000-0.120)
[2021-04-26] MEDS: DUONEB NEB SCH ×4 (04:50→19:35)
[2021-04-26] MEDS: SOLU-MEDROL 40 MG IVP SCH ×3 (05:47→20:48)
[2021-04-26] MEDS: LASIX TAB PO SCH ×2 (05:48→08:35)
[2021-04-26 06:33] LABS: HEMATOCRIT 41.5 % (42.0-52.0); HEMOGLOBIN 14.7 g/dl (14.0-18.0); IMMATURE GRANULOCYTE % (AUTO) 0.4 % (0.0-5.0); LYMPHOCYTES # (AUTO) 0.9 K/uL (0.60-3.4); LYMPHOCYTES % (AUTO) 20.3 (10.0-50.0); MEAN CORPUSCULAR HEMOGLOBIN 31.4 pg (27.0-31.0); MEAN CORPUSCULAR HGB CONC 35.4 (31.8-35.4); MEAN CORPUSCULAR VOLUME 88.7 fl (80.0-94.0); MONOCYTES % (AUTO) 0.6 (0-10); NEUTROPHILS # (AUTO) 3.6 K/ul (2.0-6.9); NEUTROPHILS % (AUTO) 78.7 % (42.2-75.2); PLATELET COUNT 187 10^3/uL (140-440); RDW COEFFICIENT OF VARIATION 13.1 % (11.6-14.8); RED BLOOD COUNT 4.68 10^6/ul (4.70-6.10); WHITE BLOOD COUNT 4.63 K/ul (4.2-10.2)
[2021-04-26 06:53] LABS: ALBUMIN 4.4 g/dL (3.5-5.0); BILIRUBIN,TOTAL 0.6 mg/dL (0.2-1.3); CALCIUM 9.6 mg/dL (8.4-10.2); POTASSIUM 4.6 mmol/L (3.5-5.1); TOTAL PROTEIN 7.1 g/dL (6.3-8.2)
[2021-04-26] MEDS: COZAAR PO SCH (08:35)
[2021-04-26] MEDS: CATAPRES PO SCH ×3 (08:35→20:52)
[2021-04-26] MEDS: MUCINEX PO SCH ×2 (08:35→20:52)
[2021-04-26] MEDS: MICRO-K CAP PO SCH (08:36)
[2021-04-26] MEDS: MINOXIDIL PO SCH ×2 (08:36→20:53)
[2021-04-26] MEDS: XANAX PO SCH ×2 (08:36→20:53)
[2021-04-26] MEDS: COREG PO SCH ×2 (08:36→17:35)
[2021-04-26 08:37] LABS: CREATINE KINASE 67.4 U/L (55-170)
[2021-04-26] MEDS: PROTONIX PO SCH (08:41)
[2021-04-26 08:51] LABS: TROPONIN I < 0.012 ng/ml (0.0000-0.120)
[2021-04-26] MEDS ORDERED: LEXAPRO PO SCH (09:00)
[2021-04-26] MEDS ORDERED: MIRALAX PO SCH (09:00)
[2021-04-26] MEDS: ZITHROMAX PO SCH (11:13)
[2021-04-26] MEDS: TORADOL IM PRN (11:13)
--- NOTE | 2021-04-26 16:25 | RS.OTINEVL ---
Subjective - Patient information Date of Evaluation: 04/26/21 Date of Arrival on Unit: 04/26/21 Admitted From:: Home (transfer to swing bed) Diagnosis: COPD exacerbation PRECAUTIONS: low back pain, SOA, Weak when walking and O2 drops Usual Living Arrangement: With Others Living Arrangement Comments: daughter lives right behind patient. Home Environment: House, Stairs (few), No rail Medical History: Hypertension, COPD, Other Medical History Comments:: DJD lumbar spine, polycythemia, chronic kidney disease LATEX ALLERGY?: No Surgical History: Cholecystectomy Surgical History Comments:: Cardiac stent, Cholecystectomy Medications: see chart Subjective Information/ Patient Comments:: Pt reports he has to wait for his O2 to come back up. 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 standing exercises, energy conservation, and activity tolerance. Current Equipment Used at Home: shower chair, Pain Assessment - Pain Pain Score: 0 Interventions - Objective Patient Orientation: Person, Place, Situation Current Interventions: IV's, Oxygen, Telemetry Observation: Pt very red faced and SOA following using a urinal in standing. Pt reports his O2 drops to 88%. Interventions - ROM Right Upper Extremity AROM: WFL's Left Upper Extremity AROM: WFL's - Strength Right Upper Extremity Strength: Mild Weakness Left Upper Extremity Strength: Mild Weakness - Sensation Right Upper Extremity Sensation: Intact/Normal Left Upper Extremity Sensation: Intact/Normal Balance - Sitting Balance Static Sitting Balance: Good Dynamic Sitting Balance: Good - Standing Balance Static Standing Balance: Fair Dynamic Standing Balance: Fair ADL Skills - Self Feeding Self Feeding: Independent - Grooming Grooming: Independent Comments:: Pt would benefit from education regarding strategies to conserve energy in his home. - Bathing Bathing UE: Independent Bathing LE: Independent Bathing Set-up: Shower - Dressing Dressing UE: Independent Dressing LE: Independent - Toilet Management Toilet Hygiene: Independent Toilet Clothing Management: Independent - Comments Comments:: Pt becomes very SOA with activity. Functional Mobility - Bed Mobility Rolling R/L: Independent Scooting: Independent Supine to Sit: Independent - Transfers Sit to Stand: Min Assist Stand to Sit: Min Assist Stand Pivot Transfers: Min Assist - Ambulation Weight Bearing Status: FWB Assistance needed with Ambulation: Min Assist, 1 person assist - Safety Awareness Safety Awareness: Good [place] INDEX SCORE: . Additional Treatment Performed - Time with patient Length of Evaluation: 15 Total treatment time: 17 Activities Do you enjoy playing games?: Yes Would you be interested in leaving your room for activities?: Yes Would you enjoy group activities?: Yes Do you have difficulty with your vision?: Yes Patient Interests:: Watching Television, Visiting/Socializing Patient Education Patient Education: Education of diagnosis, Home Exercise Program, Home Safety, Activity Modification, Education of Plan of Care Teaching Recipient: Patient, Family Teaching Methods: Discussion Assessment Problem List:: Decreased level of function, Requires training/education, Decreased safety/Risk of falls, Weakness Rehab Potential: Good Further Therapy Indicated?: Yes Evaluation Complexity: HISTORY: Medium, EXAM OF BODY SYSTEMS: Medium, CLINICAL DECISION MAKING: Medium Patient's Goal(s): To be able to get around better and able to breathe better to increase independence. Short Term Goals - Goals GOAL 1: Pt to increase dyn. Std. tolerance to 10 minutes. Goal to be met by: 04/30/21 GOAL 2: Pt to increase activity tolerance to 10 minutes. Goal to be met by: 04/30/21 GOAL 3: Pt to increase safety and I of sink level ADLS SUP. Goal to be met by: 04/30/21 GOAL 4: Pt to be SBA with energy conservation techniques. Goal to be met by: 04/30/21 Intermediate Goals GOAL 1: Pt to increase dyn. std. bal. to 15 minutes to increase Ind. of ADLs. Goal to be met by: 05/03/21 GOAL 2: Pt to increase activity tolerance to 15 minutes. Goal to be met by: 05/03/21 GOAL 3: Pt to be independent with energy conservation techniques Goal to be met by: 05/03/21 Plan Plan of Care: Therapeutic EX, Therapeutic Activity, Self-Care/Home Management Frequency of Treatment: 1-2 X day, as tolerated Duration of Treatment: 1 Week Anticipated Discharge Destination: Home Treatment Diagnosis (ICD 10 Codes): Weakness M62.81, Has the Physician been added for Co-signature?: Yes
[2021-04-26] MEDS: MIRALAX PO SCH (17:35)
[2021-04-26] MEDS: FLOMAX PO SCH (20:51)
[2021-04-26] MEDS: ROCEPHIN 1 GM/50 ML D5W 1 GM/50 ML BAG IV SCH (20:51)
[2021-04-26] MEDS: NORVASC PO SCH (20:52)
[2021-04-26] MEDS: ASPIRIN EC PO SCH (20:53)
[2021-04-27] MEDS: DUONEB NEB SCH ×4 (04:40→20:35)
[2021-04-27] MEDS: SOLU-MEDROL 40 MG IVP SCH ×3 (05:25→20:19)
[2021-04-27 05:26] LABS: EOSINOPHILS % (AUTO) 0.1 % (0.0-7.0); HEMATOCRIT 37.7 % (42.0-52.0); HEMOGLOBIN 13.1 g/dl (14.0-18.0); IMMATURE GRANULOCYTE % (AUTO) 0.5 % (0.0-5.0); LYMPHOCYTES % (AUTO) 12.1 (10.0-50.0); MEAN CORPUSCULAR HGB CONC 34.7 (31.8-35.4); MEAN CORPUSCULAR VOLUME 89.3 fl (80.0-94.0); MONOCYTES # (AUTO) 0.4 K/uL (0.4-2.0); MONOCYTES % (AUTO) 5.1 (0-10); NEUTROPHILS # (AUTO) 6.6 K/ul (2.0-6.9); NEUTROPHILS % (AUTO) 82.2 % (42.2-75.2); PLATELET COUNT 179 10^3/uL (140-440); RDW COEFFICIENT OF VARIATION 13.2 % (11.6-14.8); RED BLOOD COUNT 4.22 10^6/ul (4.70-6.10); WHITE BLOOD COUNT 7.99 K/ul (4.2-10.2)
[2021-04-27] MEDS: PROTONIX PO SCH ×2 (05:28→06:42)
[2021-04-27 05:40] LABS: ALANINE AMINOTRANSFERASE 18.1 U/L (0-50); ALBUMIN 3.76 g/dL (3.5-5.0); ALKALINE PHOSPHATASE 43.1 U/L (56-119); ASPARTATE AMINO TRANSFERASE 20.2 U/L (17-59); BILIRUBIN,TOTAL 0.37 mg/dL (0.2-1.3); BLOOD UREA NITROGEN 29.7 mg/dL (9-20); CALCIUM 8.69 mg/dL (8.4-10.2); CARBON DIOXIDE 23.5 mmol/L (22-30.0); CHLORIDE 98.4 mmol/L (98-107); CREATININE 1.2 mg/dL (0.60-1.10); POTASSIUM 4.82 mmol/L (3.5-5.1); SODIUM 128.1 mmol/L (134.5-145)
[2021-04-27] MEDS: MIRALAX PO SCH ×2 (09:41→17:10)
[2021-04-27] MEDS: ZITHROMAX PO SCH (09:42)
[2021-04-27] MEDS: MINOXIDIL PO SCH ×2 (09:42→20:31)
[2021-04-27] MEDS: MICRO-K CAP PO SCH (09:42)
[2021-04-27] MEDS: COZAAR PO SCH (09:42)
[2021-04-27] MEDS: MUCINEX PO SCH ×2 (09:42→20:30)
[2021-04-27] MEDS: CATAPRES PO SCH ×3 (09:42→20:31)
[2021-04-27] MEDS: COREG PO SCH ×2 (09:42→17:10)
[2021-04-27] MEDS: LEXAPRO PO SCH (09:43)
[2021-04-27] MEDS: XANAX PO SCH ×2 (09:43→20:30)
[2021-04-27] MEDS: LASIX TAB PO SCH (09:43)
--- NOTE | 2021-04-27 09:43 | PCM.PROG ---
Attending Provider: ATTENDING PROVIDER: Dr. HAILEY SCHULTE This patient is seen with Debbie Garcia, Nurse Practitioner. DATE OF SERVICE: 04/27/21 SUBJECTIVE: This 80 year old /WHITE M was hospitalized 04/25/21. Complaining of legs hurting in quads not on any Statins. Denies any back pain. No trauma. The patient is very anxious. REVIEW OF SYSTEMS: CONSTITUTIONAL: No night sweats. No fatigue, malaise, lethargy. No fever or chills. HEENT: Eyes: No visual changes. No eye pain. No eye discharge. ENT: No runny nose. No epistaxis. No sinus pain. No odynophagia. No congestion. RESPIRATORY: No cough, no congestion. No hemoptysis. No shortness of breath. CARDIOVASCULAR: No angina symptoms. No CHF symptoms. No atypical chest pain for CAD. No palpitations. No orthopnea.. GASTROINTESTINAL: No abdominal pain. No nausea or vomiting. No diarrhea or constipation. No hematemesis. No hematochezia. GENITOURINARY: No urgency. No frequency. No dysuria. No hematuria. No obstruc tive symptoms. No discharge. No pain. No significant abnormal bleeding. MUSCULOSKELETAL: No musculoskeletal pain; no joint swelling. Leg pain. NEUROLOGICAL: Awake, alert, oriented to time, place and person. No headache. No neck pain. No syncope. No seizures. No dizziness. PSYCHIATRIC: Anxious. No depression. No suicidal thoughts. No homicidal thoughts. SKIN: No rash. No lesions. No wounds. ENDOCRINE: No unexplained weight loss. No weight gain. HEMATOLOGIC/LYMPHATIC: No anemia. No purpura. No petechiae. No prolonged or excessive bleeding. No palpable lymph nodes. PHYSICAL EXAMINATION: GENERAL: The patient is awake, alert and oriented, sitting in bed in no distres s. VITAL SIGNS: Temperature 97.5 F, Pulse 74, Respiratory Rate 20, BP 122/64, Pulse Ox 94% HEENT: Head normocephalic, atraumatic. Eyes: Extraocular muscles are intact. Pupils are equal, round and reactive to light and accommodation. Ears: No lesions. Nose appeared normal. Throat: No exudate or erythema. NECK: Supple. No JVD, no carotid bruit. No lymphadenopathy or thyromegaly. LUNGS: Diminished breath sounds. Clear to auscultation. Percussion note normal. Chest symmetrical. HEART: S1, S2, no S3. No murmurs. No cyanosis or clubbing. No ascites. Pulses: Dorsalis pedis and posterior tibial pulses +1 to +2 both sides. ABDOMEN: Soft. Non-tender. Bowel sounds active. No CVA tenderness. No mass felt. EXTREMITIES: No edema. Full range of motion of all extremities, equal. NEUROLOGIC: No focal deficit. Cranial nerves II through XII are grossly intact. No headache. No double vision. SKIN: Not dry. Intact. Turgor-normal. LYMPHATIC: No palpable lymph nodes/no lymphedema. MUSCULOSKELETAL: Normal joints with no swelling. Muscle tone is normal. LAB REVIEW: 04/27/21 04:40 04/27/21 04:40 04/27/21 04:40: Sodium 128.1 L, Potassium 4.82, Chloride 98.4, Carbon Dioxide 23.5, Anion Gap 11.02, BUN 29.7 H, Creatinine 1.20 H, Estimated GFR (MDRD) 58.00, BUN/Creatinine Ratio 24.75, Glucose 124.0 H, Calcium 8.69, Total Bilirubin 0.37, AST 20.2, ALT 18.1, Alkaline Phosphatase 43.1 L, Total Protein 6.00 L, Albumin 3.76, Globulin 2.24, Albumin/Globulin Ratio 1.67 04/27/21 04:40: WBC 7.99, RBC 4.22 L, Hgb 13.1 L, Hct 37.7 L, MCV 89.3, MCH 3 1.0, MCHC 34.7, RDW Coeff of Bhaskar 13.2, Plt Count 179, Immature Gran % (Auto) 0.5, Neut % (Auto) 82.2 H, Lymph % (Auto) 12.1, Gregg % (Auto) 5.1, Eos % (Auto) 0.1, Baso % (Auto) 0.0, Neut # (Auto) 6.6, Lymph # (Auto) 1.0, Gregg # (Auto) 0.4, Eos # (Auto) 0.0, Baso # (Auto) 0.0, Immature Gran # (Auto) 0.0 04/26/21 08:22: Total Creatine Kinase 67.4, Troponin I < 0.012 ASSESSMENT: Please see below. 1. Acute COPD exacerbation 2. Chronic respiratory failure 3. Anxiety 4. Bilateral leg pain. PLAN: 1. Increase Lexapro to 20mg 2. Zanaflex 4mg BID Plan and coordination of the patient's care discussed in the presence of Survey Questionnaire Designer and nurse. SCRIBED BY: Valentin VELEZ scribed while in presence of service performed by Dr. Schulte/Debbie Garcia APRN on 04/27/21 ([id number])
[2021-04-27] MEDS: ZANAFLEX PO SCH ×2 (09:45→20:30)
--- NOTE | 2021-04-27 13:17 | HP ---
DATE OF SERVICE: 04/25/21 REASON FOR HOSPITALIZATION/HISTORY OF PRESENT ILLNESS: 80 year old white male who presents to the emergency room complaining of shortness of breath. Also pain in his upper legs and anxiety. He has a long history of COPD with chronic respiratory failure. PAST MEDICAL HISTORY: End stage COPD Oxygen dependent Chronic respiratory failure Hemorrhoids Constipation Chronic kidney disease stage II Coronary artery disease with stent Hypertension Palpitations Anxiety Secondary polycythemia Sleep apnea uses Trilogy BPH sees Dr. 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 No fatigue, malaise, lethargy. No fever or chills. HEENT: Eyes: No visual changes. No eye pain. No eye discharge. ENT: No runny nose. No epistaxis. No sinus pain. No sore throat. No odynophagia. No ear pain. No congestion. RESPIRATORY: Cough, no congestion. No hemoptysis. Shortness of breath. CARDIOVASCULAR: No angina symptoms. No CHF symptoms. No atypical chest pain for CAD. No palpitations. No PND. No orthopnea. GASTROINTESTINAL: No abdominal pain. No nausea or vomiting. No diarrhea or constipation. No hematemesis. No hematochezia. GENITOURINARY: No urgency. No frequency. No dysuria. No hematuria. No obstructive symptoms. No discharge. No pain. No significant abnormal bleeding. MUSCULOSKELETAL: No musculoskeletal pain. No joint swelling. No arthritis. NEUROLOGICAL: No headache. No neck pain. No syncope. No seizures. No dizziness. PSYCHIATRIC: Anxious. No depression. No suicidal thoughts. No homicidal thoughts. SKIN: No rash. No lesions. No wounds. ENDOCRINE: No unexplained weight loss. No weight gain. HEMATOLOGIC/LYMPHATIC: No anemia. No purpura. No petechiae. No prolonged or excessive bleeding. No palpable lymph nodes. PERSONAL/FAMILY/SOCIAL HISTORY: He is . I do believe his daughter lives with him. He performs all ADLs. Nonsmoker. No alcohol or illicit drug use. MEDICATIONS: Aspirin 81mg PO bedtime Escitalopram oxalate 10mg Po daily Tamsulosin 0.8mg PO bedtime Ventolin HFA 90mcg two puff inhalation Q 4-6 ours Protonix 40mg PO daily Albuterol sulfate one vial NEB TID Budesonide 0.5mg inhalation BID Mucinex 600mg PO BID Xanax 0.5mg PO BID Coreg 6.25mg PO BID Lasix 20mg PO Daily K-tab 10meq PO daily Clonidine 0.1mg PO TID Losartan 100mg PO daily Systane one drop both eyes 5XD PRN Minoxidil 5mg PO BID Amlodipine 5mg PO BEDTIME Stiolto Respimat 2 puffs BID Miralax 17 gram PO 1700 Miralax 17gram Po daily ALLERGIES: Levofloxacin PHYSICAL EXAMINATION: GENERAL: The patient is alert and oriented. VITAL SIGNS: Temperature 97.9, heart rate 98, respiratory rate 22, blood pressure 194/90 and pulse ox 99% on 5 liters. HEENT: Head normocephalic, atraumatic. Eyes: Extraocular muscles are intact. Pupils are equal, round and reactive to light and accommodation. Ears: No lesions. Nose appeared normal. Throat: No exudate or erythema. NECK: Supple. No JVD, no carotid bruit. No lymphadenopathy or thyromegaly. LUNGS: Diminished breath sounds bilaterally. Clear to auscultation. Percussion note normal. Chest symmetrical. HEART: S1, S2, no S3. No murmur. No cyanosis or clubbing. No ascites. Pulses: Dorsalis pedis and posterior tibial pulses +1 to +2 bilaterally. ABDOMEN: Soft. Nontender. Bowel sounds active. No CVA tenderness. No mass felt. EXTREMITIES: No edema. Full range of motion of all extremities, equal. NEUROLOGIC: No focal deficit. Cranial nerves II through XII are grossly intact. No headache, no double vision or headache. Anxious. SKIN: Not dry. Intact. Turgor - normal. LYMPHATIC: No palpable lymph nodes/no lymphedema. MUSCULOSKELETAL: Normal joints with no swelling. Muscle tone is normal. LABS: Positive trace protein, trace blood. Respiratory panel is negative for COVID. Sodium 128, potassium 4.7, BUN 15, creatinine 1.0, AST 24, ALT 21. Alkaline phosphatase 58, rapid Flu A and B negative. Strep is negative. ABG on 5 liters pCo2 47, pH 7.37, pO2 87. O2 saturation 96%. WBC 6.8, hgb 14.7, hct 41.9, plt count 190. Chest x-ray shows redemonstration of right lower lung atelectasis/scaring. No focal consolidation. ASSESSMENT: 1. Acute COPD exacerbation 2. Chronic respiratory failure 3. Bilateral leg pain 4. Hypotension 5. Hyponatremia PLAN: 1. We will admit 2. Normal saline IV at 75cc times one bag 3. Start Rocephin 1gram IV daily 4. Continue home medications 5. Solu-Medrol 100mg IV Q 12hours 6. Sputum for culture and sensitivity 7. Toradol 30mg IV Q 8 hours PRN 8. We will follow closely. TIME SPENT: More than 70 minutes. MTDD
[2021-04-27] MEDS: TORADOL IM PRN (15:16)
[2021-04-27] MEDS: ASPIRIN EC PO SCH (20:30)
[2021-04-27] MEDS: FLOMAX PO SCH (20:30)
[2021-04-27] MEDS: NORVASC PO SCH (20:30)
[2021-04-27] MEDS: ROCEPHIN 1 GM/50 ML D5W 1 GM/50 ML BAG IV SCH (20:31)
[2021-04-28] MEDS: DUONEB NEB SCH ×4 (04:50→20:38)
[2021-04-28] MEDS: PROTONIX PO SCH (05:44)
[2021-04-28] MEDS: SOLU-MEDROL 40 MG IVP SCH (05:48)
[2021-04-28 05:56] LABS: HEMATOCRIT 36.9 % (42.0-52.0); IMMATURE GRANULOCYTE # (AUTO) 0.1 (0.0-1.0); IMMATURE GRANULOCYTE % (AUTO) 0.7 % (0.0-5.0); LYMPHOCYTES # (AUTO) 0.9 K/uL (0.60-3.4); LYMPHOCYTES % (AUTO) 12.7 (10.0-50.0); MEAN CORPUSCULAR HEMOGLOBIN 31.6 pg (27.0-31.0); MEAN CORPUSCULAR HGB CONC 35.2 (31.8-35.4); MEAN CORPUSCULAR VOLUME 89.6 fl (80.0-94.0); MONOCYTES # (AUTO) 0.3 K/uL (0.4-2.0); MONOCYTES % (AUTO) 3.9 (0-10); NEUTROPHILS % (AUTO) 82.7 % (42.2-75.2); PLATELET COUNT 188 10^3/uL (140-440); RDW COEFFICIENT OF VARIATION 13.5 % (11.6-14.8); RED BLOOD COUNT 4.12 10^6/ul (4.70-6.10); WHITE BLOOD COUNT 7.23 K/ul (4.2-10.2)
[2021-04-28 06:16] LABS: ALANINE AMINOTRANSFERASE 17.2 U/L (0-50); ALBUMIN 3.77 g/dL (3.5-5.0); ALKALINE PHOSPHATASE 38.3 U/L (56-119); ASPARTATE AMINO TRANSFERASE 18.8 U/L (17-59); BILIRUBIN,TOTAL 0.41 mg/dL (0.2-1.3); BLOOD UREA NITROGEN 38.2 mg/dL (9-20); CALCIUM 9.19 mg/dL (8.4-10.2); CARBON DIOXIDE 25.1 mmol/L (22-30.0); CHLORIDE 98.3 mmol/L (98-107); CREATININE 1.32 mg/dL (0.60-1.10); GLUCOSE 117.9 mg/dL (74-106); POTASSIUM 5.11 mmol/L (3.5-5.1); TOTAL PROTEIN 5.92 g/dL (6.3-8.2)
[2021-04-28] MEDS: MICRO-K CAP PO SCH (07:30)
[2021-04-28] MEDS ORDERED: CITRATE OF MAGNESIA PO PRN (08:49)
[2021-04-28] MEDS: OMNICEF PO SCH ×2 (09:35→21:07)
[2021-04-28] MEDS: LEXAPRO PO SCH (09:35)
[2021-04-28] MEDS: MIRALAX PO SCH ×2 (09:35→16:54)
[2021-04-28] MEDS: COZAAR PO SCH (09:35)
[2021-04-28] MEDS: MUCINEX PO SCH ×2 (09:35→21:08)
[2021-04-28] MEDS: LASIX TAB PO SCH (09:35)
[2021-04-28] MEDS: CATAPRES PO SCH ×3 (09:35→21:07)
[2021-04-28] MEDS: COREG PO SCH ×2 (09:35→16:54)
[2021-04-28] MEDS: XANAX PO SCH ×2 (09:35→21:07)
[2021-04-28] MEDS: ZANAFLEX PO SCH ×2 (09:36→21:08)
[2021-04-28] MEDS: MINOXIDIL PO SCH ×2 (09:36→21:08)
--- NOTE | 2021-04-28 09:37 | PCM.PROG ---
Attending Provider: ATTENDING PROVIDER: Dr. HAILEY SCHULTE DATE OF SERVICE: 04/28/21 SUBJECTIVE: This 80 year old /WHITE M was hospitalized 04/25/21. COPD exacerbation. The patient is doing well and slowly getting better. With exertion oxygen saturation drops. REVIEW OF SYSTEMS: CONSTITUTIONAL: No night sweats. No fatigue, malaise, lethargy. No fever or chills. HEENT: Eyes: No visual changes. No eye pain. No eye discharge. ENT: No runny nose. No epistaxis. No sinus pain. No odynophagia. No congestion. RESPIRATORY: No cough, no congestion. No hemoptysis. Shortness of breath on minimal exertion as usual. CARDIOVASCULAR: No angina symptoms. No CHF symptoms. No atypical chest pain for CAD. No palpitations. No orthopnea.. GASTROINTESTINAL: No abdominal pain. No nausea or vomiting. No diarrhea or constipation. No hematemesis. No hematochezia. Appetite good. GENITOURINARY: No urgency. No frequency. No dysuria. No hematuria. No obstructive symptoms. No discharge. No pain. No significant abnormal bleeding. MUSCULOSKELETAL: No musculoskeletal pain; no joint swelling. NEUROLOGICAL: Awake, alert, oriented to time, place and person. No headache. No neck pain. No syncope. No seizures. No dizziness. PSYCHIATRIC: Not anxious. No depression. No suicidal thoughts. No homicidal thoughts. SKIN: No rash. No lesions. No wounds. ENDOCRINE: No unexplained weight loss. No weight gain. HEMATOLOGIC/LYMPHATIC: No anemia. No purpura. No petechiae. No prolonged or excessive bleeding. No palpable lymph nodes. PHYSICAL EXAMINATION: GENERAL: The patient is awake, alert and oriented, sitting in bed in no distress. VITAL SIGNS: Temperature 97.9 F, Pulse 81, Respiratory Rate 22, BP 149/81, Pulse Ox 96% HEENT: Head normocephalic, atraumatic. Eyes: Extraocular muscles are intact. Pupils are equal, round and reactive to light and accommodation. Ears: No lesions. Nose appeared normal. Throat: No exudate or erythema. NECK: Supple. No JVD, no carotid bruit. No lymphadenopathy or thyromegaly. LUNGS: Decreased breath sounds. Clear to auscultation. Percussion note normal. Chest symmetrical. HEART: S1, S2, no S3. No murmurs. No cyanosis or clubbing. No ascites. Pulses: Dorsalis pedis and posterior tibial pulses +1 to +2 both sides. ABDOMEN: Soft. Non-tender. Bowel sounds active. No CVA tenderness. No mass felt. EXTREMITIES: Trace edema. Full range of motion of all extremities, equal. NEUROLOGIC: No focal deficit. Cranial nerves II through XII are grossly intact. No headache, no double vision or headache. SKIN: Warm and dry. Intact. Turgor-normal. LYMPHATIC: No palpable lymph nodes/no lymphedema. MUSCULOSKELETAL: Normal joints with no swelling. Muscle tone is normal. LAB REVIEW: 04/28/21 05:01 04/28/21 05:01 04/28/21 05:01: Sodium 128.0 L, Potassium 5.11 H, Chloride 98.3, Carbon Dioxide 25.1, Anion Gap 9.71, BUN 38.2 H, Creatinine 1.32 H, Estimated GFR (MDRD) 52.00, BUN/Creatinine Ratio 28.93, Glucose 117.9 H, Calcium 9.19, Total Bilirubin 0.41, AST 18.8, ALT 17.2, Alkaline Phosphatase 38.3 L, Total Protein 5.92 L, Albumin 3.77, Globulin 2.15, Albumin/Globulin Ratio 1.75 04/28/21 05:01: WBC 7.23, RBC 4.12 L, Hgb 13.0 L, Hct 36.9 L, MCV 89.6, MCH 31.6 H, MCHC 35.2, RDW Coeff of Bhaskar 13.5, Plt Count 188, Immature Gran % (Auto) 0.7, Neut % (Auto) 82.7 H, Lymph % (Auto) 12.7, Garrett % (Auto) 3.9, Eos % (Auto) 0.0, Baso % (Auto) 0.0, Neut # (Auto) 6.0, Lymph # (Auto) 0.9, Garrett # (Auto) 0.3 L, Eos # (Auto) 0.0, Baso # (Auto) 0.0, Immature Gran # (Auto) 0.1 ASSESSMENT: Please see below. 1. COPD exacerbation with respiratory failure under control and getting better PLAN: 1. Discontinue Potassium because Potassium being 5.1 2. Continue CPAP as before 3. Discontinue Rocephin 4. Omnicef 300mg BID 5. Discontinue IV steroids 6. Prednisone 20mg PO daily 7. The patient's sputum showed Serratia Marcescens sensitive to Rocephin Plan and coordination of the patient's care discussed in the presence of Valentin gomez and nurse. SCRIBED BY: KAMI GALEANA Physical Therapist Technician scribed while in presence of service performed by Dr. HAILEY SCHULTE on 04/28/21 ([id number])
--- NOTE | 2021-04-28 11:58 | PN ---
DATE OF SERVICE: 04/27/21 SUBJECTIVE: The patient was seen and examined with the Nurse Practitioner. Condition has improved. He is breathing somewhat better. He has leg pain related to just osteoporosis from intermediate manager steroid treatment. Thoroughly explained about steroids side effects including avascular necrosis of the femur bone. Cardiovascular and respiratory status is stable. The patient was seen and examined with the Nurse Practitioner. TIME SPENT: More than 30 minutes. Plan and coordination of the patient's care discussed in the presence of nurse. NITIN
--- NOTE | 2021-04-28 13:11 | PN ---
DATE OF SERVICE: 04/26/21 SUBJECTIVE: 80 year old white male hospitalized with acute exacerbation of COPD. The patient's condition is somewhat better. He is breathing better but still shortness of breath on minimal exertion. The patient's COPD has continued to deteriorate slowly. He has cardiovascular disease with history of coronary artery disease but he asymptomatic. REVIEW OF SYSTEMS: CONSTITUTIONAL: No night sweats. No fatigue, malaise, lethargy. No fever or chills. HEENT: Eyes: No visual changes. No eye pain. No eye discharge. ENT: No runny nose. No epistaxis. No sinus pain. No sore throat. No odynophagia. No congestion. RESPIRATORY: No cough, no congestion. No hemoptysis. Shortness of breath on minimal exertion. CARDIOVASCULAR: No angina symptoms. No CHF symptoms. No atypical chest pain for CAD. No palpitations. No PND. No orthopnea. GASTROINTESTINAL: No abdominal pain. No nausea or vomiting. No diarrhea or constipation. No hematemesis. No hematochezia. GENITOURINARY: No urgency. No frequency. No dysuria. No hematuria. No obstructive symptoms. No discharge. No pain. No significant abnormal bleeding. MUSCULOSKELETAL: No musculoskeletal pain; no joint swelling. NEUROLOGICAL: No headache. No neck pain. No syncope. No seizures. No dizziness. PSYCHIATRIC: Not anxious. No depression. No suicidal thoughts. No homicidal thoughts. SKIN: No rash. No lesions. No wounds. ENDOCRINE: No unexplained weight loss. No weight gain. HEMATOLOGIC/LYMPHATIC: No anemia. No purpura. No petechiae. No prolonged or excessive bleeding. No palpable lymph nodes. PHYSICAL EXAMINATION: VITAL SIGNS: Temperature 97.9, pulse 87, respiratory rate 20, blood pressure 160/85 and pulse ox 96%. HEENT: Head normocephalic, atraumatic. Eyes: Extraocular muscles are intact. Pupils are equal, round and reactive to light and accommodation. Ears: No lesions. Nose appeared normal. Throat: No exudate or erythema. NECK: Supple. No JVD, no carotid bruit. No lymphadenopathy or thyromegaly. LUNGS:Decreased breath sounds with mild wheeze. Clear to auscultation. Percussion note normal. Chest symmetrical. HEART: S1, S2, no S3. No murmurs. No cyanosis or clubbing. No ascites. Pulses: Dorsalis pedis and posterior tibial pulses +1 to +2 bilaterally. ABDOMEN: Soft. Nontender. Bowel sounds active. No CVA tenderness. No mass felt. EXTREMITIES: No edema. Full range of motion of all extremities, equal. NEUROLOGIC: No focal deficit. Cranial nerves II through XII are grossly intact. No headache. No double vision. SKIN: Not dry. Intact. Turgor - normal. LYMPHATIC: No palpable lymph nodes/no lymphedema. MUSCULOSKELETAL: Normal joints with no swelling. Muscle tone is normal. LABS: hgb 14.7, hct 41, WBC 4,600 normal differential, creatinine 1, BUN 17, potassium 4.6. Glucose 135. ASSESSMENT: 1. Acute exacerbation of COPD seems to be improving with Rocephin, NEBS and steroids. PLAN: 1. Continue the same treatment 2. Troponin is negative. 3. Estimated GFR is 72, glucose 135 4. Continue to monitor the patient's telemetry and oxygen saturation. CONDITION: Stable. PROGNOSIS: Guarded. TIME SPENT: More than 30 minutes. Plan and coordination of the patient's care discussed in the presence of nurse. NITIN
--- NOTE | 2021-04-28 13:15 | PN ---
DATE OF SERVICE: 04/25/21 SUBJECTIVE: 80 year old white male hospitalized through the emergency room with complaint of shortness of breath. The patient had cough and congestion. He was hypoxic. The patient was seen by ER attending. Has shortness of breath with little exertion. The patient had no symptoms of CHF. The patient was hospitalized for further treatment of COPD. REVIEW OF SYSTEMS: CONSTITUTIONAL: No night sweats. No fatigue, malaise, lethargy. No fever or chills. HEENT: Eyes: No visual changes. No eye pain. No eye discharge. ENT: No runny nose. No epistaxis. No sinus pain. No sore throat. No odynophagia. No congestion. RESPIRATORY: No cough, no congestion. No hemoptysis. No shortness of breath. CARDIOVASCULAR: No angina symptoms. No CHF symptoms. No atypical chest pain for CAD. No palpitations. No PND. No orthopnea. GASTROINTESTINAL: No abdominal pain. No nausea or vomiting. No diarrhea or constipation. No hematemesis. No hematochezia. GENITOURINARY: No urgency. No frequency. No dysuria. No hematuria. No obstructive symptoms. No discharge. No pain. No significant abnormal bleeding. MUSCULOSKELETAL: No musculoskeletal pain; no joint swelling. NEUROLOGICAL: No headache. No neck pain. No syncope. No seizures. No dizziness. PSYCHIATRIC: Not anxious. No depression. No suicidal thoughts. No homicidal thoughts. SKIN: No rash. No lesions. No wounds. ENDOCRINE: No unexplained weight loss. No weight gain. HEMATOLOGIC/LYMPHATIC: No anemia. No purpura. No petechiae. No prolonged or excessive bleeding. No palpable lymph nodes. PHYSICAL EXAMINATION: VITAL SIGNS: Temperature 98, pulse 90, respiratory rate 15, blood pressure 138/78 and pulse 96%. HEENT: Head normocephalic, atraumatic. Eyes: Extraocular muscles are intact. Pupils are equal, round and reactive to light and accommodation. Ears: No lesions. Nose appeared normal. Throat: No exudate or erythema. NECK: Supple. No JVD, no carotid bruit. No lymphadenopathy or thyromegaly. LUNGS: Decreased breath sounds with mild wheeze. Clear to auscultation. Percussion note normal. Chest symmetrical. HEART: S1, S2, no S3. No murmurs. No cyanosis or clubbing. No ascites. Pulses: Dorsalis pedis and posterior tibial pulses +1 to +2 bilaterally. ABDOMEN: Soft. Nontender. Bowel sounds active. No CVA tenderness. No mass felt. EXTREMITIES: No edema. Full range of motion of all extremities, equal. NEUROLOGIC: No focal deficit. Cranial nerves II through XII are grossly intact. No headache. No double vision. SKIN: Not dry. Intact. Turgor - normal. LYMPHATIC: No palpable lymph nodes/no lymphedema. MUSCULOSKELETAL: Normal joints with no swelling. Muscle tone is normal. LABS: ABG on 5 liters showed pO2 of 87, pCO2 47, PH 7.37 with 96% saturation. ASSESSMENT: 1. Acute exacerbation of COPD, COVID negative PLAN: 1. Admit the patient 2. IV antibiotics and steroids 3. NEBS 4. The patient has a BMI of 27 he weighs around 201 pounds. Advised to lose at least 10-15 pounds that may help his breathing 5. Advised pulmonary rehab. TIME SPENT: More than 30 minutes. Plan and coordination of the patient's care discussed in the presence of nurse. NITIN
[2021-04-28] MEDS: TORADOL IM PRN (14:44)
[2021-04-28] MEDS: ASPIRIN EC PO SCH (21:07)
[2021-04-28] MEDS: FLOMAX PO SCH (21:08)
[2021-04-28] MEDS: NORVASC PO SCH (21:08)
[2021-04-29] MEDS: DUONEB NEB SCH ×4 (05:00→19:37)
[2021-04-29] MEDS ORDERED: MILK OF MAGNESIA PO PRN (05:00)
[2021-04-29 05:13] LABS: BASOPHILS % (AUTO) 0.1 % (0.0-3.0); EOSINOPHILS % (AUTO) 0.1 % (0.0-7.0); HEMATOCRIT 38.1 % (42.0-52.0); HEMOGLOBIN 13.1 g/dl (14.0-18.0); IMMATURE GRANULOCYTE % (AUTO) 0.5 % (0.0-5.0); LYMPHOCYTES # (AUTO) 1.9 K/uL (0.60-3.4); MEAN CORPUSCULAR HEMOGLOBIN 30.8 pg (27.0-31.0); MEAN CORPUSCULAR HGB CONC 34.4 (31.8-35.4); MEAN CORPUSCULAR VOLUME 89.4 fl (80.0-94.0); MONOCYTES % (AUTO) 11.8 (0-10); NEUTROPHILS # (AUTO) 5.9 K/ul (2.0-6.9); NEUTROPHILS % (AUTO) 66.5 % (42.2-75.2); PLATELET COUNT 201 10^3/uL (140-440); RDW COEFFICIENT OF VARIATION 13.3 % (11.6-14.8); RED BLOOD COUNT 4.26 10^6/ul (4.70-6.10); WHITE BLOOD COUNT 8.81 K/ul (4.2-10.2)
[2021-04-29 05:39] LABS: ALANINE AMINOTRANSFERASE 17.2 U/L (0-50); ALBUMIN 3.59 g/dL (3.5-5.0); ASPARTATE AMINO TRANSFERASE 22.3 U/L (17-59); BILIRUBIN,TOTAL 0.6 mg/dL (0.2-1.3); BLOOD UREA NITROGEN 38.6 mg/dL (9-20); CALCIUM 8.75 mg/dL (8.4-10.2); CARBON DIOXIDE 26.5 mmol/L (22-30.0); CHLORIDE 94.5 mmol/L (98-107); CREATININE 1.25 mg/dL (0.60-1.10); POTASSIUM 5.04 mmol/L (3.5-5.1); SODIUM 124.3 mmol/L (134.5-145); TOTAL PROTEIN 5.83 g/dL (6.3-8.2)
[2021-04-29] MEDS: PROTONIX PO SCH (06:07)
[2021-04-29] MEDS: MINOXIDIL PO SCH ×2 (08:53→20:24)
[2021-04-29] MEDS: CATAPRES PO SCH ×3 (08:53→20:25)
[2021-04-29] MEDS: OMNICEF PO SCH ×2 (08:53→20:25)
[2021-04-29] MEDS: PREDNISONE PO SCH (08:54)
[2021-04-29] MEDS: XANAX PO SCH ×2 (08:54→20:24)
[2021-04-29] MEDS: ZANAFLEX PO SCH ×2 (08:54→20:24)
[2021-04-29] MEDS: LEXAPRO PO SCH (08:54)
[2021-04-29] MEDS: LASIX TAB PO SCH (08:54)
[2021-04-29] MEDS: COZAAR PO SCH (08:54)
[2021-04-29] MEDS: MUCINEX PO SCH ×2 (08:54→20:24)
[2021-04-29] MEDS: COREG PO SCH ×2 (08:54→16:08)
[2021-04-29] MEDS: MIRALAX PO SCH ×2 (08:55→16:08)
[2021-04-29] MEDS: ASPIRIN EC PO SCH (20:24)
[2021-04-29] MEDS: FLOMAX PO SCH (20:24)
[2021-04-29] MEDS: NORVASC PO SCH (20:24)
[2021-04-30] MEDS: DUONEB NEB SCH ×4 (05:14→20:12)
[2021-04-30] MEDS: PROTONIX PO SCH (05:34)
[2021-04-30] MEDS: LASIX TAB PO SCH (05:34)
[2021-04-30 05:37] LABS: BASOPHILS % (AUTO) 0.2 % (0.0-3.0); EOSINOPHILS % (AUTO) 0.2 % (0.0-7.0); HEMATOCRIT 40.1 % (42.0-52.0); HEMOGLOBIN 13.8 g/dl (14.0-18.0); IMMATURE GRANULOCYTE % (AUTO) 0.5 % (0.0-5.0); LYMPHOCYTES # (AUTO) 1.8 K/uL (0.60-3.4); LYMPHOCYTES % (AUTO) 27.7 (10.0-50.0); MEAN CORPUSCULAR HEMOGLOBIN 30.7 pg (27.0-31.0); MEAN CORPUSCULAR HGB CONC 34.4 (31.8-35.4); MEAN CORPUSCULAR VOLUME 89.1 fl (80.0-94.0); MONOCYTES # (AUTO) 0.9 K/uL (0.4-2.0); MONOCYTES % (AUTO) 13.9 (0-10); NEUTROPHILS # (AUTO) 3.8 K/ul (2.0-6.9); NEUTROPHILS % (AUTO) 57.5 % (42.2-75.2); PLATELET COUNT 183 10^3/uL (140-440); RDW COEFFICIENT OF VARIATION 13.2 % (11.6-14.8)
[2021-04-30 05:50] LABS: ALANINE AMINOTRANSFERASE 18.1 U/L (0-50); ALBUMIN 3.73 g/dL (3.5-5.0); ALKALINE PHOSPHATASE 41.6 U/L (56-119); ASPARTATE AMINO TRANSFERASE 21.9 U/L (17-59); BILIRUBIN,TOTAL 0.79 mg/dL (0.2-1.3); BLOOD UREA NITROGEN 31.2 mg/dL (9-20); CALCIUM 8.42 mg/dL (8.4-10.2); CARBON DIOXIDE 28.3 mmol/L (22-30.0); CHLORIDE 94.1 mmol/L (98-107); CREATININE 1.12 mg/dL (0.60-1.10); GLUCOSE 88.5 mg/dL (74-106); POTASSIUM 4.6 mmol/L (3.5-5.1); SODIUM 124.9 mmol/L (134.5-145); TOTAL PROTEIN 6.03 g/dL (6.3-8.2)
[2021-04-30] MEDS: OMNICEF PO SCH ×2 (08:48→21:07)
[2021-04-30] MEDS: XANAX PO SCH ×2 (08:48→21:07)
[2021-04-30] MEDS: PREDNISONE PO SCH (08:48)
[2021-04-30] MEDS: ZANAFLEX PO SCH ×2 (08:48→21:08)
[2021-04-30] MEDS: MINOXIDIL PO SCH ×2 (08:48→21:07)
[2021-04-30] MEDS: MUCINEX PO SCH ×2 (08:48→21:07)
[2021-04-30] MEDS: LEXAPRO PO SCH (08:48)
[2021-04-30] MEDS: COZAAR PO SCH (08:49)
[2021-04-30] MEDS: CATAPRES PO SCH ×3 (08:49→21:08)
[2021-04-30] MEDS: COREG PO SCH ×2 (08:49→17:11)
[2021-04-30] MEDS: MIRALAX PO SCH ×2 (08:49→17:11)
[2021-04-30] MEDS: TORADOL IM PRN (15:43)
[2021-04-30] MEDS: NORVASC PO SCH (21:07)
[2021-04-30] MEDS: FLOMAX PO SCH (21:07)
[2021-04-30] MEDS: ASPIRIN EC PO SCH (21:07)
[2021-05-01] MEDS: DUONEB NEB SCH ×2 (04:50→10:19)
[2021-05-01 05:05] VITALS: BP 147/82; TEMP 97.7
[2021-05-01 05:36] LABS: EOSINOPHILS % (AUTO) 0.3 % (0.0-7.0); HEMATOCRIT 38.8 % (42.0-52.0); HEMOGLOBIN 13.5 g/dl (14.0-18.0); IMMATURE GRANULOCYTE % (AUTO) 0.5 % (0.0-5.0); LYMPHOCYTES # (AUTO) 2.2 K/uL (0.60-3.4); LYMPHOCYTES % (AUTO) 35.1 (10.0-50.0); MEAN CORPUSCULAR HEMOGLOBIN 31.5 pg (27.0-31.0); MEAN CORPUSCULAR HGB CONC 34.8 (31.8-35.4); MEAN CORPUSCULAR VOLUME 90.4 fl (80.0-94.0); MONOCYTES # (AUTO) 0.7 K/uL (0.4-2.0); MONOCYTES % (AUTO) 11.7 (0-10); NEUTROPHILS # (AUTO) 3.2 K/ul (2.0-6.9); NEUTROPHILS % (AUTO) 52.4 % (42.2-75.2); PLATELET COUNT 188 10^3/uL (140-440); RDW COEFFICIENT OF VARIATION 13.3 % (11.6-14.8); RED BLOOD COUNT 4.29 10^6/ul (4.70-6.10); WHITE BLOOD COUNT 6.13 K/ul (4.2-10.2)
[2021-05-01] MEDS: LASIX TAB PO SCH (05:50)
[2021-05-01 05:51] LABS: ALANINE AMINOTRANSFERASE 16.9 U/L (0-50); ALBUMIN 3.67 g/dL (3.5-5.0); ALKALINE PHOSPHATASE 41.4 U/L (56-119); ASPARTATE AMINO TRANSFERASE 19.1 U/L (17-59); BILIRUBIN,TOTAL 0.69 mg/dL (0.2-1.3); BLOOD UREA NITROGEN 34.4 mg/dL (9-20); CALCIUM 8.44 mg/dL (8.4-10.2); CARBON DIOXIDE 30.3 mmol/L (22-30.0); CHLORIDE 94.5 mmol/L (98-107); CREATININE 1.27 mg/dL (0.60-1.10); GLUCOSE 86.9 mg/dL (74-106); POTASSIUM 4.39 mmol/L (3.5-5.1); TOTAL PROTEIN 5.85 g/dL (6.3-8.2)
[2021-05-01] MEDS: PROTONIX PO SCH (05:51)
[2021-05-01] MEDS: MIRALAX PO SCH (08:27)
[2021-05-01] MEDS: OMNICEF PO SCH (08:28)
[2021-05-01] MEDS: CATAPRES PO SCH (08:28)
[2021-05-01] MEDS: XANAX PO SCH (08:28)
[2021-05-01] MEDS: LEXAPRO PO SCH (08:29)
[2021-05-01] MEDS: ZANAFLEX PO SCH (08:30)
[2021-05-01] MEDS: MINOXIDIL PO SCH (08:31)
[2021-05-01] MEDS: COZAAR PO SCH (08:31)
[2021-05-01] MEDS: PREDNISONE PO SCH (08:31)
[2021-05-01] MEDS: MUCINEX PO SCH (08:32)
[2021-05-01] MEDS: COREG PO SCH (08:32)
[2021-05-01] MEDS ORDERED: FLONASE NAS SCH (09:00)
[2021-05-01] MEDS ORDERED: SUDAFED PO SCH (09:00)
--- NOTE | 2021-05-01 09:40 | PCM.PROG ---
Attending Provider: ATTENDING PROVIDER: Dr. HAILEY SCHULTE This patient is seen with Debbie Garcia, Nurse Practitioner. DATE OF SERVICE: 05/01/21 SUBJECTIVE: This 80 year old /WHITE M was hospitalized 04/25/21. The patient is complaining of tooth pain. He missed dental appointment last Saturday. I do feel this maybe from sinus congestion. Will attempt to get another appointment. If able we will discharge today if not tomorrow. Respiratory stand point is stable. Labs are stable. REVIEW OF SYSTEMS: CONSTITUTIONAL: No night sweats. No fatigue, malaise, lethargy. No fever or chills. HEENT: Eyes: No visual changes. No eye pain. No eye discharge. ENT: No runny nose. No epistaxis. No sinus pain. No odynophagia. No congestion. Tooth pain. RESPIRATORY: No cough, no congestion. No hemoptysis. Shortness of breath.Sinus pressure. CARDIOVASCULAR: No angina symptoms. No CHF symptoms. No atypical chest pain for CAD. No palpitations. No orthopnea.. GASTROINTESTINAL: No abdominal pain. No nausea or vomiting. No diarrhea or constipation. No hematemesis. No hematochezia. GENITOURINARY: No urgency. No frequency. No dysuria. No hematuria. No obstructive symptoms. No discharge. No pain. No significant abnormal bleeding. MUSCULOSKELETAL: No musculoskeletal pain; no joint swelling. NEUROLOGICAL: Awake, alert, oriented to time, place and person. No headache. No neck pain. No syncope. No seizures. No dizziness. PSYCHIATRIC: Not anxious. No depression. No suicidal thoughts. No homicidal thoughts. SKIN: No rash. No lesions. No wounds. ENDOCRINE: No unexplained weight loss. No weight gain. HEMATOLOGIC/LYMPHATIC: No anemia. No purpura. No petechiae. No prolonged or exc essive bleeding. No palpable lymph nodes. PHYSICAL EXAMINATION: GENERAL: The patient is awake, alert and oriented, sitting in bed in no distress. VITAL SIGNS: Temperature 97.7 F, Pulse 76, Respiratory Rate 22, BP 147/82, Pulse Ox 97% HEENT: Head normocephalic, atraumatic. Eyes: Extraocular muscles are intact. Pupils are equal, round and reactive to light and accommodation. Ears: No lesions. Nose appeared normal. Throat: No exudate or erythema. Maxillary sinus tenderness. NECK: Supple. No JVD, no carotid bruit. No lymphadenopathy or thyromegaly. LUNGS: Diminished breath sounds. Clear to auscultation. Percussion note normal. Chest symmetrical. HEART: S1, S2, no S3. No murmurs. No cyanosis or clubbing. No ascites. Pulses: Dorsalis pedis and posterior tibial pulses +1 to +2 both sides. ABDOMEN: Soft. Non-tender. Bowel sounds active. No CVA tenderness. No mass felt. EXTREMITIES: No edema. Full range of motion of all extremities, equal. NEUROLOGIC: No focal deficit. Cranial nerves II through XII are grossly intact. No headache. No double vision. SKIN: Not dry. Intact. Turgor-normal. LYMPHATIC: No palpable lymph nodes/no lymphedema. MUSCULOSKELETAL: Normal joints with no swelling. Muscle tone is normal. LAB REVIEW: 05/01/21 05:00 05/01/21 05:00 05/01/21 05:00: Sodium 127.0 L, Potassium 4.39, Chloride 94.5 L, Carbon Dioxide 30.3 H, Anion Gap 6.59, BUN 34.4 H, Creatinine 1.27 H, Estimated GFR (MDRD) 54.00, BUN/Creatinine Ratio 27.08, Glucose 86.9, Calcium 8.44, Total Bilirubin 0.69, AST 19.1, ALT 16.9, Alkaline Phosphatase 41.4 L, Total Protein 5.85 L, Albumin 3.67, Globulin 2.18, Albumin/Globulin Ratio 1.68 05/01/21 05:00: WBC 6.13, RBC 4.29 L, Hgb 13.5 L, Hct 38.8 L, MCV 90.4, MCH 31.5 H, MCHC 34.8, RDW Coeff of Bhaskar 13.3, Plt Count 188, Immature Gran % (Auto) 0.5, Neut % (Auto) 52.4, Lymph % (Auto) 35.1, Otoe % (Auto) 11.7 H, Eos % (Auto) 0.3, Baso % (Auto) 0.0, Neut # (Auto) 3.2, Lymph # (Auto) 2.2, Otoe # (Auto) 0.7, Eos # (Auto) 0.0, Baso # (Auto) 0.0, Immature Gran # (Auto) 0.0 ASSESSMENT: Please see below. 1. Chronic respiratory failure 2. Acute COPD exacerbation 3. Chronic sinusitis 4. Chronic Hyponatremia 5. Hypertension 6. Anxiety PLAN: 1. Flonase two sprays per side BID 2. Start Sudafed 30mg QAM Plan and coordination of the patient's care discussed in the presence of Supervisor [employer] and nurse. SCRIBED BY: KAMI GALEANA Assistant Women'S Soccer Coach scribed while in presence of service performed by Dr. Schulte/Debbie Garcia APRN on 05/01/21 (0801)
--- NOTE | 2021-05-04 13:50 | PN ---
DATE OF SERVICE: 04/29/21 SUBJECTIVE: 80 year old white male hospitalized with COPD exacerbation. The patient's condition has improved and he is feeling somewhat better, since drainage still there. Short of breath on exertion persists but no PND and No chest. pain. REVIEW OF SYSTEMS: CONSTITUTIONAL: No night sweats. No fatigue, malaise, lethargy. No fever or chills. HEENT: Eyes: No visual changes. No eye pain. No eye discharge. ENT: No runny nose. No epistaxis. No sinus pain. No sore throat. No odynophagia. No congestion. RESPIRATORY: No cough, no congestion. No hemoptysis. Shortness of breath on exertion. CARDIOVASCULAR: No angina symptoms. No CHF symptoms. No atypical chest pain for CAD. No palpitations. No PND. No orthopnea. GASTROINTESTINAL: No abdominal pain. No nausea or vomiting. No diarrhea or constipation. No hematemesis. No hematochezia. GENITOURINARY: No urgency. No frequency. No dysuria. No hematuria. No obstructive symptoms. No discharge. No pain. No significant abnormal bleeding. MUSCULOSKELETAL: No musculoskeletal pain; no joint swelling. NEUROLOGICAL: No headache. No neck pain. No syncope. No seizures. No dizziness. PSYCHIATRIC: Not anxious. No depression. No suicidal thoughts. No homicidal thoughts. SKIN: No rash. No lesions. No wounds. ENDOCRINE: No unexplained weight loss. No weight gain. HEMATOLOGIC/LYMPHATIC: No anemia. No purpura. No petechiae. No prolonged or excessive bleeding. No palpable lymph nodes. PHYSICAL EXAMINATION: VITAL SIGNS: Temperature 97.9, pulse 65, Respiratory rate 20, blood pressure 122/80 and pulse ox 97% on 3 liters. HEENT: Head normocephalic, atraumatic. Eyes: Extraocular muscles are intact. Pupils are equal, round and reactive to light and accommodation. Ears: No lesions. Nose appeared normal. Throat: No exudate or erythema. NECK: Supple. No JVD, no carotid bruit. No lymphadenopathy or thyromegaly. LUNGS: Decreased breath sounds. Clear to auscultation. Percussion note normal. Chest symmetrical. HEART: S1, S2, no S3. No murmurs. No cyanosis or clubbing. No ascites. Pulses: Dorsalis pedis and posterior tibial pulses +1 to +2 bilaterally. ABDOMEN: Soft. Nontender. Bowel sounds active. No CVA tenderness. No mass felt. EXTREMITIES: No edema. Full range of motion of all extremities, equal. NEUROLOGIC: No focal deficit. Cranial nerves II through XII are grossly intact. No headache. No double vision. SKIN: Not dry. Intact. Turgor - normal. LYMPHATIC: No palpable lymph nodes/no lymphedema. MUSCULOSKELETAL: Normal joints with no swelling. Muscle tone is normal. LABS: hgb 13, hct 38, WBC 8,800 normal differential, creatinine 1.2, BUN 38, potassium 5. ASSESSMENT: 1. COPD Exacerbation seems to be better Cardiovascular status being stable. PLAN: 1. The patient's sodium is 124 strongly advised not to drink too much liquids or fluids 2. Continue NEBS treatment and steroids 3. Steroids discussed with the patient. TIME SPENT: More than 30 minutes. Plan and coordination of the patient's care discussed in the presence of nurse. NITIN
--- NOTE | 2021-05-04 13:55 | PN ---
DATE OF SERVICE: 04/30/21 SUBJECTIVE: 80 year old white male hospitalized with COPD exacerbations. The patient's condition has improved. COPD exacerbation seems to be under control. He has severe chronic lung disease with minimal exertion the patient's oxygen saturation goes below 86%. REVIEW OF SYSTEMS: CONSTITUTIONAL: No night sweats. No fatigue, malaise, lethargy. No fever or chills. HEENT: Eyes: No visual changes. No eye pain. No eye discharge. ENT: No runny nose. No epistaxis. No sinus pain. No sore throat. No odynophagia. No congestion. RESPIRATORY: No cough, no congestion. No hemoptysis. No shortness of breath. CARDIOVASCULAR: No angina symptoms. No CHF symptoms. No atypical chest pain for CAD. No palpitations. No PND. No orthopnea. GASTROINTESTINAL: No abdominal pain. No nausea or vomiting. No diarrhea or constipation. No hematemesis. No hematochezia. GENITOURINARY: No urgency. No frequency. No dysuria. No hematuria. No obstructive symptoms. No discharge. No pain. No significant abnormal bleeding. MUSCULOSKELETAL: No musculoskeletal pain; no joint swelling. NEUROLOGICAL: No headache. No neck pain. No syncope. No seizures. No dizziness. PSYCHIATRIC: Not anxious. No depression. No suicidal thoughts. No homicidal thoughts. SKIN: No rash. No lesions. No wounds. ENDOCRINE: No unexplained weight loss. No weight gain. HEMATOLOGIC/LYMPHATIC: No anemia. No purpura. No petechiae. No prolonged or excessive bleeding. No palpable lymph nodes. PHYSICAL EXAMINATION: VITAL SIGNS: Temperature 97.5, pulse 90, respiratory rate 18, blood pressure 117/80 and pulse ox 92% HEENT: Head normocephalic, atraumatic. Eyes: Extraocular muscles are intact. Pupils are equal, round and reactive to light and accommodation. Ears: No lesions. Nose appeared normal. Throat: No exudate or erythema. NECK: Supple. No JVD, no carotid bruit. No lymphadenopathy or thyromegaly. LUNGS: Decreased breath sounds but clear to auscultation. Percussion note normal. Chest symmetrical. HEART: S1, S2, no S3. No murmurs. No cyanosis or clubbing. No ascites. Pulses: Dorsalis pedis and posterior tibial pulses +1 to +2 bilaterally. ABDOMEN: Soft. Nontender. Bowel sounds active. No CVA tenderness. No mass felt. EXTREMITIES: No edema. Full range of motion of all extremities, equal. NEUROLOGIC: No focal deficit. Cranial nerves II through XII are grossly intact. No headache. No double vision. SKIN: Not dry. Intact. Turgor - normal. LYMPHATIC: No palpable lymph nodes/no lymphedema. MUSCULOSKELETAL: Normal joints with no swelling. Muscle tone is normal. LABS: Hgb 13.8, hct 40, WBC 6,600 normal differential, creatinine 1.1, BUN 31 ASSESSMENT: 1. Acute exacerbation of COPD seems to be resolving PLAN: 1. Continue antibiotics, steroids and NEBS 2. The patient is advised to join pulmonary rehab 3. Advised to lose weight at least 15-20 pounds 4. Exercise as discussed. TIME SPENT: More than 30 minutes. Plan and coordination of the patient's care discussed in the presence of nurse. NITIN
--- NOTE | 2021-05-04 13:57 | PN ---
DATE OF SERVICE: 05/01/21 SUBJECTIVE: 80 year old white male hospitalized with COPD exacerbation. The patient's condition has clearly improved. Feeling better and less short of breath. Still gets out of breath with exertion with drop in oxygen saturation. Cardiovascular status is stable. The patient is going to be discharged home. The patient was seen and examined with the Nurse Practitioner. The patient's prognosis is guarded. He is fully vaccinated for COVID. TIME SPENT: More than 30 minutes. Plan and coordination of the patient's care discussed in the presence of nurse. NITIN
--- NOTE | 2021-05-04 13:58 | PN ---
04/25/21: Level 5 04/26/21: Intermediate 04/27/21: Intermediate 04/28/21: Intermediate 04/29/21: Intermediate 04/30/21: Intermediate 05/01/21: D as in discharge MTDD
--- NOTE | 2021-05-16 13:33 | DS ---
DATE OF SERVICE: 05/01/21 FINAL DIAGNOSIS: 1. Acute bronchitis 2. Acute COPD exacerbation 3. Endstage COPD, oxygen dependent 4. Hypertension 5. Anxiety 6. Chronic constipation 7. Chronic respiratory failure 8. Chronic kidney disease stage II DISCHARGE INSTRUCTIONS: Discharge home. Continue home medications. Followup appointment on May 11 at 10:30am with Dr. oGnzalez's office. MEDICATIONS AT DISCHARGE: ASPIRIN 81MG PO BEDTIME TAMSULOSIN 0.8MG PO BEDTIME VENTOLIN 2 PUF INHALATION Q 4-6 HOURS PRN PROTONIX 40MG PO DAILY ALBUTEROL SULFATE 1 VIAL NEB TID BUDESONIDE 0.5MG INHALATION BID MUCINEX 600MG PO BID XANAX 0.5MG PO BID COREG 6.25MG PO BID LASIX 20MG PO DAILY K-TAB 10MEQ PO DAILY CLONIDINE 0.1MG PO TID LOSARTAN 100MG PO DAILY SYSTANE 1 DROP BOTH EYES PRN MINOXIDIL 5MG PO BID AMLODIPINE 5MG PO BEDTIME STIOLTO RESPIMAT 2 PUFF INHALATION BID MIRALAX 17GRAM PO 1700 MIRALAX 17GRAM PO DAILY NEW PRESCRIPTIONS: LEXAPRO INCREASED TO 20MG DAILY (START TOMORROW) SUDAFED 30MG DAILY (START TOMORROW) X 14 DAYS FLONASE 2 SPRAYS TWICE A DAY (START TONIGHT) ZANAFLEX 4MG TWICE A DAY (START TONIGHT) PREDNISONE 10MG DAILY X5 DAYS (START TOMORROW MORNING) DIET INSTRUCTIONS: Continue 2gm Sodium diet ACTIVITY: Resume activity as tolerated with frequent rest periods if needed. HOSPITAL COURSE: 80 year old white male who was admitted through the emergency room complaining of shortness of breath also pain in his upper legs and anxiety. He has a long history of COPD with chronic respiratory failure. He was on 5 liters via nasal canula when he came in. ABG showed of pO2 into the 70s. He was admitted and placed on normal saline IV at 75cc an hour and started on IV Rocephin as well as Zithromax. We continued his home medications and started on Solu-Medrol 100mg IV Q 12 hours. Sputum for culture and sensitivity was done which was normal. He was negative for COVID. Blood culture were not done. He remained afebrile while he was here. He was complaining of leg pain which I do feel was benign. X-rays were normal. He was given Toradol 30mg IV Q 8 hours PRN for his leg pain. We did hold his Statin. Chest x-ray showed no pneumonia. Over the course of the next several days his legs steadily improved. His breathing eased. We transitioned him to PO steroids and he has tolerated this well. Prior to this he had complained of some tooth pain. I do feel that this is a result of some sinus congestion. We did start him on some Flonase. He does have a dentist appointment which he is going to attending I believe this afternoon or tomorrow. It is to be noted that he has chronic hyponatremia, it was 128 on admission and has stayed at 128. We will continue with the Flonase. Started him on Sudafed 30mg in the morning just for a few days. He will be discharged in stable condition and followup with us in the office next week. TIME SPENT: More than 60 minutes. [facility]ITALEmeterio
== END 2021-05-01 11:00 | disposition home or self-care (01) | DRG 202 ==
LOC: ED 14:12 → MEDSURG A 19:22
PROVIDERS: ADMIT Internal Medicine; ATTEND Internal Medicine
DX: J20.9 Acute bronchitis, unspecified; N18.2 Chronic kidney disease, stage 2 (mild); D75.1 Secondary polycythemia; Z95.5 Presence of coronary angioplasty implant and graft; R25.2 Cramp and spasm; J44.1 Chronic obstructive pulmonary disease with (acute) exacerbation; Z99.81 Dependence on supplemental oxygen; N40.1 Benign prostatic hyperplasia with lower urinary tract symptoms; K59.04 Chronic idiopathic constipation; Z79.899 Other long term (current) drug therapy; F41.9 Anxiety disorder, unspecified; J96.10 Chronic respiratory failure, unspecified whether with hypoxia or hypercapnia; Z20.822 Contact with and (suspected) exposure to COVID-19; G47.33 Obstructive sleep apnea (adult) (pediatric); R00.2 Palpitations; E87.1 Hypo-osmolality and hyponatremia; I25.10 Atherosclerotic heart disease of native coronary artery without angina pectoris; I10 Essential (primary) hypertension; R73.9 Hyperglycemia, unspecified

== ENCOUNTER 2022-01-08 16:47 | Inpatient (IN) ==
[2022-01-08 17:30] LABS: HEMATOCRIT 41.2 % (42.0-52.0); HEMOGLOBIN 13.6 g/dl (14.0-18.0); MEAN CORPUSCULAR VOLUME 94.3 fl (80.0-94.0); RED BLOOD COUNT 4.37 10^6/ul (4.70-6.10); WHITE BLOOD COUNT 5.76 K/ul (4.2-10.2)
[2022-01-08 17:31] LABS: BASOPHILS % (AUTO) 0.2 % (0.0-3.0); EOSINOPHILS # (AUTO) 0.2 K/ul (0.0-0.7); EOSINOPHILS % (AUTO) 2.8 % (0.0-7.0); LYMPHOCYTES # (AUTO) 1.2 K/uL (0.60-3.4); LYMPHOCYTES % (AUTO) 20.1 (10.0-50.0); MEAN CORPUSCULAR HEMOGLOBIN 31.1 pg (27.0-31.0); MONOCYTES # (AUTO) 0.6 K/uL (0.4-2.0); MONOCYTES % (AUTO) 10.6 (0-10); NEUTROPHILS # (AUTO) 3.8 K/ul (2.0-6.9); NEUTROPHILS % (AUTO) 66.1 % (42.2-75.2); PLATELET COUNT 144 10^3/uL (140-440); RDW COEFFICIENT OF VARIATION 13.6 % (11.6-14.8)
[2022-01-08 17:32] LABS: IMMATURE GRANULOCYTE % (AUTO) 0.2 % (0.0-5.0)
[2022-01-08 17:34] LABS: MOLECULAR FLU A NEGATIVE BY NAAT (NEGATIVE); MOLECULAR FLU B NEGATIVE BY NAAT (NEGATIVE)
[2022-01-08 17:55] LABS: CARBON DIOXIDE 31.7 mmol/L (22-30.0); CHLORIDE 98.8 mmol/L (98-107); POTASSIUM 4.44 mmol/L (3.5-5.1); SODIUM 132.7 mmol/L (134.5-145)
[2022-01-08 17:56] LABS: ALANINE AMINOTRANSFERASE 15.1 U/L (0-50); ASPARTATE AMINO TRANSFERASE 27.1 U/L (17-59); BILIRUBIN,TOTAL 0.58 mg/dL (0.2-1.3); BLOOD UREA NITROGEN 15.4 mg/dL (9-20); CALCIUM 9.35 mg/dL (8.4-10.2); CREATININE 0.89 mg/dL (0.60-1.10); GLUCOSE 94.2 mg/dL (74-106); TOTAL PROTEIN 6.66 g/dL (6.3-8.2); TROPONIN I < 0.012 ng/ml (0.0000-0.120)
[2022-01-08 17:57] LABS: ALKALINE PHOSPHATASE 48.5 U/L (56-119)
--- NOTE | 2022-01-08 18:37 | ED.PDOC ---
General ED Provider: Dr. ROSA PATTEN Chief Complaint: Shortness of Air Stated Complaint: few days Time Seen by Provider: 01/08/22 17:00 Mode of Arrival: Walk-In Information Source: Patient Exam Limitations: No limitations Primary Care Provider: HAILEY GONZALEZ Nursing and Triage Documentation Reviewed and Agree: Yes Does patient meet sepsis criteria?: No System Inflammatory Response Syndrome: Not Applicable Sepsis Protocol: For patient's 13 years and over: Temp is 96.8 and below OR 101 and greater Pulse >90 BPM Resp >20/minute Acutely Altered Mental Status Are patient's symptoms suggestive of a new infection, such as: -Pneumonia -Skin, Soft Tissue -Endocarditis -UTI -Bone, Joint Infection -Implantable Device -Acute Abdominal Infection -Wound Infection -Meningitis -Blood Stream Catheter Infection -Unknown Respiratory Complaint Exam Shortness of Air Complaint/Exam Onset/Duration: few d Symptoms Are: Still present Timing: Constant Initial Severity: Moderate Current Severity: Moderate Character: Reports Dyspnea at rest and Dyspnea on exertion Aggravating: Reports Deep breaths Alleviating: Reports Bronchodilators and Oxygen Associated Signs and Symptoms: Reports Cough and Wheezing Related History: Reports Similar episode History of Healthcare-Acquired Pneumonia: No Pulmonary Embolism Risk Factors: Reports None Cardiac Risk Factors: Reports None Pseudomonas Risk Factors: Reports None Tuberculosis Risk Factors: Reports None Home Oxygen Use: Yes Recent Stress Test: No Recent Echo/LV Function: No Respiratory Distress: Moderate Stridor Present: No Tracheal Deviation: No Subcutaneous Emphysema: No Accessory Muscle Use: No Retractions: Not Present Diminished Breath Sounds: Yes Prolonged Expiratory Phase: Yes Unable to Speak Full Sentences: No Fatigue: Yes Leg Swelling: No Nohemy's Sign Present: No Grunting Respirations: No Kussmaul Respirations: No Review of Systems Review Of Systems Constitutional: Reports No symptoms Eyes: Reports No symptoms Ears, Nose, Mouth, Throat: Reports No symptoms Respiratory: Reports Cough, Short of air and Wheezing Cardiac: Reports No symptoms GI: Reports No symptoms : Reports No symptoms Musculoskeletal: Reports No symptoms Skin: Reports No symptoms Neurological: Reports No symptoms Endocrine: Reports No symptoms Hematologic/Lymphatic: Reports No symptoms All Other Systems: Reviewed and Negative [facility] Medical History (Updated 01/09/22 @ 08:53 by KAMI GALEANA) Anxiety Arteriosclerosis Blood disease BPH (benign prostatic hyperplasia) CAD (coronary artery disease) Cancer of skin of external nose (~10/04/20) Chronic bronchitis Chronic hyponatremia Chronic respiratory failure CKD (chronic kidney disease) stage 3, GFR 30-59 ml/min COPD (chronic obstructive pulmonary disease) Diverticulosis Emphysema of lung Enlarged heart Gastroesophageal reflux disease Hypertension Osteoarthritis Oxygen dependent Prostate enlargement Sciatica, right side Seasonal allergies Secondary polycythemia Sleep apnea TMJ (temporomandibular joint disorder) Family History Mother Obstetric anesthesia problems Emphysema of lung Social History Smoking and tobacco status: Former smoker History of recent travel: No Surgical History History of bilateral cataract extraction History of coronary artery stent placement History of tonsillectomy Physical Exam Physical Exam Appearance: Reports Ill-appearing Ill-appearing: Moderate Pain Distress: None Eyes: Reports ABDIAS ENT: Reports Oropharynx normal Neck: Supple Respiratory: Reports Airway patent, Breath sounds diminished, Rhonchi and Wheezes Cardiovascular: Reports RRR and Pulses normal GI/: Reports Soft and Nontender Musculoskeletal: Reports Normal strength and ROM intact Skin: Reports Warm and Dry Neurological: Reports Sensation intact, Motor intact and Alert Psychiatric: Reports Affect appropriate and Mood appropriate Interpretation Radiology Interpretation Radiology Interpretation By: Radiologist Radiology Results: No acute changes Exam Interpreted: Portable CXR Xray Comments: COPD EKG Interpretation Time of EKG #1: 17:07 Rate: Normal Rhythm: Sinus Ectopy: None [place]: NL ST Segment: Normal Interpretation: WNL Physician Notification Case Discussed Physician Notified: Dr. Gonzalez Time of Notification: 20:00 Comments: Admit Admit/Transition Orders Entered by ED Provider: Yes Admit To: Inpatient Critical Care Note Critical Care Note Total Critical Care Time (mins): 0 Course Course Hematology/Chemistry: 01/10/22 05:00 01/10/22 05:00 Orders, Labs, Meds: Lab Review 01/08/22 01/08/22 01/08/22 17:08 17:08 17:23 WBC 5.76 RBC 4.37 L Hgb 13.6 L Hct 41.2 L MCV 94.3 H MCH 31.1 H MCHC 33.0 RDW Coeff of Bhaskar 13.6 Plt Count 144 Immature Gran % (Auto) 0.2 Neut % (Auto) 66.1 Lymph % (Auto) 20.1 [place] % (Auto) 10.6 H Eos % (Auto) 2.8 Baso % (Auto) 0.2 Neut # (Auto) 3.8 Lymph # (Auto) 1.2 [place] # (Auto) 0.6 Eos # (Auto) 0.2 Baso # (Auto) 0.0 Immature Gran # (Auto) 0.0 Puncture Site Base Excess O2 Saturation ABG pH ABG pCO2 ABG pO2 ABG HCO3 ABG Total CO2 Albino Test Hemoglobin Oxyhemoglobin Carboxyhemoglobin Total Hemoglobin O2 Delivery Device Oxygen Liter Flow Sodium Potassium Chloride Carbon Dioxide Anion Gap BUN Creatinine Estimated GFR (MDRD) BUN/Creatinine Ratio Glucose Calcium Total Bilirubin AST ALT Alkaline Phosphatase Troponin I NT-Pro-B Natriuret Pep Total Protein Albumin Globulin Albumin/Globulin Ratio Influ A Molecular Assay Negative by naat Influ B Molecular Assay Negative by naat SARS CoV-2 RNA Rapid BALWINDER Negative 01/08/22 01/08/22 17:30 18:46 WBC RBC Hgb Hct MCV MCH MCHC RDW Coeff of Bhaskar Plt Count Immature Gran % (Auto) Neut % (Auto) Lymph % (Auto) [place] % (Auto) Eos % (Auto) Baso % (Auto) Neut # (Auto) Lymph # (Auto) [place] # (Auto) Eos # (Auto) Baso # (Auto) Immature Gran # (Auto) Puncture Site Rrad Base Excess 4.5 H O2 Saturation 93.3 L ABG pH 7.36 ABG pCO2 53.0 H ABG pO2 71.0 L ABG HCO3 29.9 H ABG Total CO2 31.5 H Albino Test + Hemoglobin 1.2 Oxyhemoglobin 92.8 L Carboxyhemoglobin 2.1 H Total Hemoglobin 13.0 O2 Delivery Device Nc Oxygen Liter Flow 4.00 Sodium 132.7 L Potassium 4.44 Chloride 98.8 Carbon Dioxide 31.7 H Anion Gap 6.64 BUN 15.4 Creatinine 0.89 Estimated GFR (MDRD) 82.00 BUN/Creatinine Ratio 17.30 Glucose 94.2 Calcium 9.35 Total Bilirubin 0.58 AST 27.1 ALT 15.1 Alkaline Phosphatase 48.5 L Troponin I < 0.012 NT-Pro-B Natriuret Pep 110.000 Total Protein 6.66 Albumin 3.90 Globulin 2.76 Albumin/Globulin Ratio 1.41 Influ A Molecular Assay Influ B Molecular Assay SARS CoV-2 RNA Rapid BALWINDER Orders Category Date Time Status ADMIT PATIENT INPATIENT .TO MEDSURG (NON-MONITORED ADMISSION 01/08/22 19:14 Active BED) ABG DRAW REQUEST Stat CARDIO 01/08/22 18:47 Completed EKG-(ED ONLY) Stat CARDIO 01/08/22 17:00 Completed NEBULIZER TREATMENT Routine CARDIO 01/08/22 19:25 Active OXYGEN Routine CARDIO 01/08/22 19:16 Active ACTIVITY .BR with BRP CARE 01/08/22 19:14 Active INTAKE & OUTPUT Q8HR CARE 01/08/22 19:14 Active IP: INSERT SALINE LOCK ONCE CARE 01/08/22 19:14 Active VITAL SIGNS Q8HR CARE 01/08/22 19:14 Active REGULAR DIET DIETARY 01/08/22 Breakfast Ordered ABG COOX Stat LAB 01/08/22 18:46 Completed CBC W/ AUTO DIFF DAILY@0600 LAB 01/09/22 04:55 Completed CBC W/ AUTO DIFF DAILY@0600 LAB 01/10/22 05:00 Completed CBC W/ AUTO DIFF Stat LAB 01/08/22 17:23 Completed COMPREHENSIVE METABOLIC PANEL Stat LAB 01/08/22 17:30 Completed FLU A/B MOLECULAR Stat LAB 01/08/22 17:08 Completed NT-PROBNP Stat LAB 01/08/22 17:30 Completed SARS COV-2 RNA RAPID BALWINDER Stat LAB 01/08/22 17:08 Completed TROPONIN I Stat LAB 01/08/22 17:30 Completed Albuterol Sulfate 0.083% Neb [Albuterol 0.083% Neb] MEDS 01/08/22 20:00 Active 2.5 mg NEB RTQID Azithromycin Inj [Zithromax] 500 mg MEDS 01/08/22 19:14 Discontinued 0.9 % Sodium Chloride [Sodium Chloride] 250 ml IV ONCE Ceftriaxone/D5w 1 gm Premix [Rocephin 1 gm/50 ml D5w] MEDS 01/09/22 09:00 Active 1 gm in 50 ml IV DAILY Ceftriaxone/D5w 1 gm Premix [Rocephin 1 gm/50 ml D5w] MEDS 01/08/22 18:46 Discontinued 1 gm in 50 ml IV ONCE Enoxaparin Sodium [Lovenox] MEDS 01/09/22 09:00 Active 40 mg SUBCUT DAILY Methylprednisolone Sod Succ/Pf [Solu-Medrol 125 mg] MEDS 01/08/22 18:46 Discontinued 125 mg IVP ONCE ONE Methylprednisolone Sod Succ/Pf [Solu-Medrol 40 mg] MEDS 01/08/22 21:00 Discontinued 40 mg IVP TID RESUSCITATION STATUS Routine OTHERS 01/08/22 19:14 Completed CHEST, 1V AP ONLY Stat RADS 01/08/22 17:00 Completed Medications Generic Name Dose Route Start Last Admin Trade Name Krystin PRN Reason Stop Dose Admin Acetaminophen 650 mg 01/08/22 22:13 01/08/22 22:41 Acetaminophen 325 Mg Tablet PO 650 mg Q4H PRN Administration Pain Albuterol Sulfate 2.5 mg 01/08/22 20:00 01/10/22 19:11 Albuterol Sulfate 0.083% Vial.Neb NEB 2.5 mg RTQID BANDAR Administration Alprazolam 0.5 mg 01/10/22 21:00 01/10/22 20:59 Alprazolam 0.5 Mg Tablet PO 0.5 mg BID BANDAR Administration Amlodipine Besylate 5 mg 01/08/22 22:00 01/10/22 20:59 Amlodipine Besylate 5 Mg Tablet PO 5 mg BID BANDAR Administration Aspirin 81 mg 01/08/22 21:00 01/10/22 20:58 Aspirin 81 Mg Tablet.Dr PO 81 mg BEDTIME BANDAR Administration Carvedilol 12.5 mg 01/09/22 08:30 01/10/22 17:19 Carvedilol 12.5 Mg Tablet PO 12.5 mg BIDWM BANDAR Administration Clonidine 0.1 mg 01/11/22 09:00 Clonidine Hcl 0.1 Mg Tablet PO 0900 BANDAR Clonidine 0.2 mg 01/11/22 14:00 Clonidine Hcl 0.1 Mg Tablet PO 1400 BANDAR Enoxaparin Sodium 40 mg 01/09/22 09:00 01/10/22 08:27 Enoxaparin Sodium 40 Mg/0.4 Ml Syr SUBCUT 40 mg DAILY BANDAR Administration Escitalopram Oxalate 20 mg 01/09/22 09:00 01/10/22 08:26 Escitalopram Oxalate 10 Mg Tablet PO 20 mg DAILY BANDAR Administration Furosemide 20 mg 01/09/22 06:30 01/10/22 06:01 Furosemide 20 Mg Tablet PO 20 mg QDAC BANDAR Administration Guaifenesin 1,200 mg 01/08/22 22:00 01/10/22 20:59 Guaifenesin 600 Mg Tablet.Er PO 1,200 mg BID BANDAR Administration CEFTRIAXONE/D5W 1 GM PREMIX 1 gm in 50 mls @ 75 mls/hr 01/09/22 09:00 01/10/22 08:27 Rocephin 1 Gm/50 Ml D5w IV 01/12/22 08:59 75 mls/hr DAILY BANDAR Administration Losartan Potassium 50 mg 01/09/22 09:00 01/10/22 20:58 Losartan Potassium 25 Mg Tablet PO 50 mg BID BANDAR Administration Methylprednisolone Sodium Succinate 100 mg 01/09/22 09:00 01/10/22 20:59 Methylprednisolone Sod Succ/Pf 125 Mg/2 Ml Vial IVP 100 mg TID BANDAR Administration Minoxidil 5 mg 01/08/22 21:00 01/10/22 20:58 Minoxidil 2.5 Mg Tablet PO 5 mg BID BANDAR Administration Pantoprazole Sodium 40 mg 01/09/22 06:30 01/10/22 06:01 Pantoprazole Sodium 40 Mg Tablet.Dr PO 40 mg QDAC BANDAR Administration Polyethylene Glycol 17 gm 01/09/22 10:30 01/10/22 20:59 Polyethylene Glycol 17 Gm Powd.Pack PO 17 gm BID BANDAR Administration Sodium Chloride 1 syr 01/09/22 05:00 01/10/22 20:59 0.9% Sodium Chloride 10 Ml Disp.Syrin IVF 1 syr Q8HR BANDAR Administration Sodium Chloride 1 syr 01/10/22 16:04 0.9% Sodium Chloride 10 Ml Disp.Syrin IVF PRN PRN Maintain IV Patency Tamsulosin HCl 0.8 mg 01/08/22 21:00 01/10/22 20:58 Tamsulosin Hcl 0.4 Mg Cap.Er.24h PO 0.8 mg BEDTIME BANDAR Administration Umeclidinium/Vilanterol 1 inh 01/09/22 09:00 01/10/22 08:27 Umeclidinium Brm/Vilanterol 1 Each Blst.W.Dev IH 1 inh DAILY BANDAR Administration Discontinued Medications Generic Name Dose Route Start Last Admin Trade Name Freq PRN Reason Stop Dose Admin Alprazolam 0.5 mg 01/08/22 21:00 01/08/22 22:25 Alprazolam 0.5 Mg Tablet PO Not Given BID BANDAR Alprazolam 0.5 mg 01/09/22 09:00 Alprazolam 0.5 Mg Tablet PO TID BANDAR Alprazolam 0.5 mg 01/08/22 21:58 01/10/22 08:26 Alprazolam 0.5 Mg Tablet PO 0.5 mg TID BANDAR Administration Amlodipine Besylate 5 mg 01/08/22 21:00 01/08/22 22:25 Amlodipine Besylate 5 Mg Tablet PO Not Given BEDTIME BANDAR Carvedilol 6.25 mg 01/08/22 21:00 01/08/22 22:04 Carvedilol 6.25 Mg Tablet PO 6.25 mg BID BANDAR Administration Carvedilol 12.5 mg 01/08/22 22:00 01/08/22 22:41 Carvedilol 6.25 Mg Tablet PO 12.5 mg BID BANDAR Administration Clonidine 0.1 mg 01/08/22 21:00 01/08/22 22:05 Clonidine Hcl 0.1 Mg Tablet PO 0.1 mg TID BANDAR Administration Clonidine 0.2 mg 01/09/22 14:00 01/10/22 08:26 Clonidine Hcl 0.1 Mg Tablet PO 0.2 mg DAILY BANDAR Administration Clonidine 0.1 mg 01/10/22 14:00 01/10/22 13:58 Clonidine Hcl 0.1 Mg Tablet PO 0.1 mg 1400 BANDAR Administration Furosemide 20 mg 01/09/22 09:00 Furosemide 20 Mg Tablet PO DAILY BANDAR CEFTRIAXONE/D5W 1 GM PREMIX 1 gm in 50 mls @ 75 mls/hr 01/08/22 18:46 01/08/22 19:06 Rocephin 1 Gm/50 Ml D5w IV 01/08/22 19:25 75 mls/hr ONCE ONE Administration Azithromycin 500 mg/ Sodium 250 mls @ 125 mls/hr 01/08/22 19:14 01/08/22 20:30 Chloride IV 01/08/22 21:13 125 mls/hr ONCE ONE Administration Losartan Potassium 100 mg 01/09/22 09:00 Losartan Potassium 100 Mg Tablet PO DAILY [facility] Losartan Potassium 50 mg 01/08/22 22:00 01/08/22 23:16 Losartan Potassium 100 Mg Tablet PO 50 mg BID BANDAR Administration Methylprednisolone Sodium Succinate 125 mg 01/08/22 18:46 01/08/22 19:06 Methylprednisolone Sod Succ/Pf 125 Mg/2 Ml Vial IVP 01/08/22 18:47 125 mg ONCE ONE Administration Methylprednisolone Sodium Succinate 40 mg 01/08/22 21:00 01/08/22 22:13 Methylprednisolone Sod Succ/Pf 40 Mg/Ml Vial IVP Not Given TID BANDAR Pantoprazole Sodium 40 mg 01/09/22 09:00 Pantoprazole Sodium 40 Mg Tablet.Dr PO DAILY BANDAR Polyethylene Glycol 17 gm 01/09/22 17:00 Polyethylene Glycol 17 Gm Powd.Pack PO 1700 BANDAR Tizanidine HCl 4 mg 01/08/22 21:00 01/08/22 22:26 Tizanidine Hcl 4 Mg Tablet PO Not Given BEDTIME BANDAR Tizanidine HCl 4 mg 01/08/22 22:00 01/10/22 08:26 Tizanidine Hcl 4 Mg Tablet PO 4 mg BID BANDAR Administration Vital Signs: Temp Pulse Resp BP Pulse Ox 01/08/22 16:48 98 F 81 19 121/79 92 L Discharge Plan Discharge Patient Disposition: ADMITTED INPATIENT Discharge Problem: COPD with acute exacerbation Did you review [place] MOTOR VEHICLE EMISSIONS INSPECTOR?: Not Applicable ED Provider: ROSA PATTEN Condition: Stable Physician Progress Note: COPD exac, admit to Dr. Gonzalez.[]
[2022-01-08] MEDS ORDERED: SOLU-MEDROL 125 MG IVP ONE (18:46)
[2022-01-08] MEDS ORDERED: ROCEPHIN 1 GM/50 ML D5W 1 GM/50 ML BAG IV ONE (18:46)
[2022-01-08] MEDS ORDERED: ZITHROMAX 500 MG in SODIUM CHLORIDE 250 ML IV ONE (19:14)
--- NOTE | 2022-01-08 19:17 | DI ---
EXAM: CHEST RADIOGRAPH TECHNIQUE: Single frontal chest radiograph. HISTORY: Shortness of breath. COMPARISON: 09/12/2021. FINDINGS: Mild atelectasis at the lung bases. Calcified old granulomatous disease. Otherwise clear lungs. Emili cent upper lung zones with left worse than right consistent with emphysema. The heart size is normal. There is no pleural effusion. There is no pneumothorax. IMPRESSION: 1. Previous granulomatous disease. 2. Atelectasis at the lung bases. 3. Emphysema with left worse than right. 4. Otherwise unremarkable chest radiograph.
[2022-01-08 19:35] LABS: ABG PH 7.36 (7.35-7.45)
[2022-01-08 19:37] LABS: BEecf 4.5 (-2.0-3.0); COHb 2.1 (0.5-1.5); HCO3 29.9 (21-28); MetHb 1.2 (0-1.5); TCO2 31.5 (19-24); sO2 93.3 % (94-98)
[2022-01-08 19:38] LABS: ABG O2 HGB 92.8 % (95-100)
[2022-01-08] MEDS: ALBUTEROL 0.083% NEB NEB SCH (21:00)
[2022-01-08] MEDS ORDERED: SOLU-MEDROL 40 MG IVP SCH (21:00)
[2022-01-08] MEDS ORDERED: CATAPRES PO SCH (21:00)
[2022-01-08] MEDS ORDERED: XANAX PO SCH (21:00)
[2022-01-08] MEDS ORDERED: NORVASC PO SCH (21:00)
[2022-01-08] MEDS ORDERED: ZANAFLEX PO SCH (21:00)
[2022-01-08] MEDS ORDERED: COREG PO SCH ×2 (21:00→22:00)
[2022-01-08 21:14] VITALS: BMI 29.3
[2022-01-08] MEDS ORDERED: COZAAR PO SCH (22:00)
[2022-01-08] MEDS: ASPIRIN EC PO SCH (22:03)
[2022-01-08] MEDS: XANAX PO SCH (22:03)
[2022-01-08] MEDS: NORVASC PO SCH (22:03)
[2022-01-08] MEDS: MINOXIDIL PO SCH (22:04)
[2022-01-08] MEDS: FLOMAX PO SCH (22:04)
[2022-01-08] MEDS: ZANAFLEX PO SCH (22:05)
[2022-01-08] MEDS ORDERED: TYLENOL PO PRN (22:13)
[2022-01-08] MEDS: MUCINEX PO SCH (23:17)
[2022-01-09] MEDS: ALBUTEROL 0.083% NEB NEB SCH ×4 (04:52→19:55)
[2022-01-09 05:30] LABS: HEMATOCRIT 38.9 % (42.0-52.0); IMMATURE GRANULOCYTE % (AUTO) 0.3 % (0.0-5.0); LYMPHOCYTES # (AUTO) 0.5 K/uL (0.60-3.4); LYMPHOCYTES % (AUTO) 15.1 (10.0-50.0); MEAN CORPUSCULAR HEMOGLOBIN 31.6 pg (27.0-31.0); MEAN CORPUSCULAR HGB CONC 33.4 (31.8-35.4); MEAN CORPUSCULAR VOLUME 94.6 fl (80.0-94.0); MONOCYTES # (AUTO) 0.1 K/uL (0.4-2.0); MONOCYTES % (AUTO) 1.5 (0-10); NEUTROPHILS # (AUTO) 2.8 K/ul (2.0-6.9); NEUTROPHILS % (AUTO) 83.1 % (42.2-75.2); PLATELET COUNT 145 10^3/uL (140-440); RDW COEFFICIENT OF VARIATION 13.3 % (11.6-14.8); RED BLOOD COUNT 4.11 10^6/ul (4.70-6.10); WHITE BLOOD COUNT 3.38 K/ul (4.2-10.2)
[2022-01-09 05:40] LABS: ALANINE AMINOTRANSFERASE 16.1 U/L (0-50); ALBUMIN 3.97 g/dL (3.5-5.0); ALKALINE PHOSPHATASE 52.1 U/L (56-119); ASPARTATE AMINO TRANSFERASE 22.5 U/L (17-59); BILIRUBIN,TOTAL 0.47 mg/dL (0.2-1.3); BLOOD UREA NITROGEN 18.1 mg/dL (9-20); CALCIUM 9.15 mg/dL (8.4-10.2); CARBON DIOXIDE 29.5 mmol/L (22-30.0); CREATININE 1.02 mg/dL (0.60-1.10); POTASSIUM 5.03 mmol/L (3.5-5.1); SODIUM 131.7 mmol/L (134.5-145); TOTAL PROTEIN 6.73 g/dL (6.3-8.2)
[2022-01-09] MEDS: PROTONIX PO SCH (05:48)
[2022-01-09] MEDS: LASIX TAB PO SCH (05:48)
[2022-01-09] MEDS: COREG PO SCH ×2 (08:40→16:30)
[2022-01-09] MEDS ORDERED: PROTONIX PO SCH (09:00)
[2022-01-09] MEDS ORDERED: LASIX TAB PO SCH (09:00)
[2022-01-09] MEDS ORDERED: XANAX PO SCH (09:00)
[2022-01-09] MEDS ORDERED: NON-FORMULARY MEDICATION (Tiotropium-Olodaterol [Stiolto Respimat] 2.5-2.5 mcg/actuation m IH SCH (09:00)
[2022-01-09] MEDS ORDERED: MICRO-K CAP PO SCH (09:00)
[2022-01-09] MEDS ORDERED: COZAAR PO SCH (09:00)
--- NOTE | 2022-01-09 09:08 | PCM.PROG ---
Attending Provider: ATTENDING PROVIDER: Dr. HAILEY SCHULTE This patient is seen with Debbie Garcia, Nurse Practitioner. DATE OF SERVICE: 01/09/22 SUBJECTIVE: This 81 year old /WHITE M was hospitalized 01/08/22. 94 saturation on 4 liters, repeat ABG this morning. Complaining of desaturation with exertion. REVIEW OF SYSTEMS: CONSTITUTIONAL: No night sweats. No fatigue, malaise, lethargy. No fever or chills. HEENT: Eyes: No visual changes. No eye pain. No eye discharge. ENT: No runny nose. No epistaxis. No sinus pain. No odynophagia. No congestion. RESPIRATORY: Cough, no congestion. No hemoptysis. Shortness of breath. CARDIOVASCULAR: No angina symptoms. No CHF symptoms. No atypical chest pain for CAD. No palpitations. No orthopnea.. GASTROINTESTINAL: No abdominal pain. No nausea or vomiting. No diarrhea or constipation. No hematemesis. No hematochezia. GENITOURINARY: No urgency. No frequency. No dysuria. No hematuria. No obstructive symptoms. No discharge. No pain. No significant abnormal bleeding. MUSCULOSKELETAL: No musculoskeletal pain; no joint swelling. NEUROLOGICAL: Awake, alert, oriented to time, place and person. No headache. No neck pain. No syncope. No seizures. No dizziness. PSYCHIATRIC: Anxious. No depression. No suicidal thoughts. No homicidal thoughts. SKIN: No rash. No lesions. No wounds. ENDOCRINE: No unexplained weight loss. No weight gain. HEMATOLOGIC/LYMPHATIC: No anemia. No purpura. No petechiae. No prolonged or excessive bleeding. No palpable lymph nodes. PHYSICAL EXAMINATION: GENERAL: The patient is awake, alert and oriented, lying in bed in no distress. VITAL SIGNS: Temperature 97.0 F, Pulse 67, Respiratory Rate 16, BP 121/75, Pulse Ox 94% HEENT: Head normocephalic, atraumatic. Eyes: Extraocular muscles are intact. Pupils are equal, round and reactive to light and accommodation. Ears: No lesions. Nose appeared normal. Throat: No exudate or erythema. NECK: Supple. No JVD, no carotid bruit. No lymphadenopathy or thyromegaly. LUNGS: Diminished breath sounds. Clear to auscultation. Percussion note normal. Chest symmetrical. HEART: S1, S2, no S3. No murmurs. No cyanosis or clubbing. No ascites. Pulses: Dorsalis pedis and posterior tibial pulses +1 to +2 both sides. ABDOMEN: Soft. Non-tender. Bowel sounds active. No CVA tenderness. No mass felt. EXTREMITIES: No edema. Full range of motion of all extremities, equal. NEUROLOGIC: No focal deficit. Cranial nerves II through XII are grossly intact. No headache. No double vision. SKIN: Not dry. Intact. Turgor-normal. LYMPHATIC: No palpable lymph nodes/no lymphedema. MUSCULOSKELETAL: Normal joints with no swelling. Muscle tone is normal. LAB REVIEW: 01/09/22 04:55 01/09/22 04:55 01/09/22 04:55: Troponin I < 0.012 01/09/22 04:55: Sodium 131.7 L, Potassium 5.03, Chloride 97.0 L, Carbon Dioxide 29.5, Anion Gap 10.23, BUN 18.1, Creatinine 1.02, Estimated GFR (MDRD) 70.00, BUN/Creatinine Ratio 17.74, Glucose 138.0 H, Calcium 9.15, Total Bilirubin 0.47, AST 22.5, ALT 16.1, Alkaline Phosphatase 52.1 L, Total Protein 6.73, Albumin 3.97, Globulin 2.76, Albumin/Globulin Ratio 1.43 01/09/22 04:55: WBC 3.38 L, RBC 4.11 L, Hgb 13.0 L, Hct 38.9 L, MCV 94.6 H, MCH 31.6 H, MCHC 33.4, RDW Coeff of Bhaskar 13.3, Plt Count 145, Immature Gran % (Auto) 0.3, Neut % (Auto) 83.1 H, Lymph % (Auto) 15.1, [place] % (Auto) 1.5, Eos % (Auto) 0.0, Baso % (Auto) 0.0, Neut # (Auto) 2.8, Lymph # (Auto) 0.5 L, [place] # (Auto) 0.1 L, Eos # (Auto) 0.0, Baso # (Auto) 0.0, Immature Gran # (Auto) 0.0 01/08/22 18:46: Puncture Site Rrad, Base Excess 4.5 H, O2 Saturation 93.3 L, ABG pH 7.36, ABG pCO2 53.0 H, ABG pO2 71.0 L, ABG HCO3 29.9 H, ABG Total CO2 31.5 H, Albino Test +, Hemoglobin 1.2, Oxyhemoglobin 92.8 L, Carboxyhemoglobin 2.1 H, Total Hemoglobin 13.0, O2 Delivery Device Nc, Oxygen Liter Flow 4.00 01/08/22 17:30: Sodium 132.7 L, Potassium 4.44, Chloride 98.8, Carbon Dioxide 31.7 H, Anion Gap 6.64, BUN 15.4, Creatinine 0.89, Estimated GFR (MDRD) 82.00, BUN/Creatinine Ratio 17.30, Glucose 94.2, Calcium 9.35, Total Bilirubin 0.58, AST 27.1, ALT 15.1, Alkaline Phosphatase 48.5 L, Troponin I < 0.012, NT-Pro-B Natriuret Pep 110.000, Total Protein 6.66, Albumin 3.90, Globulin 2.76, Albumi n/Globulin Ratio 1.41 01/08/22 17:23: WBC 5.76, RBC 4.37 L, Hgb 13.6 L, Hct 41.2 L, MCV 94.3 H, MCH 31.1 H, MCHC 33.0, RDW Coeff of Bhaskar 13.6, Plt Count 144, Immature Gran % (Auto) 0.2, Neut % (Auto) 66.1, Lymph % (Auto) 20.1, [place] % (Auto) 10.6 H, Eos % (Auto) 2.8, Baso % (Auto) 0.2, Neut # (Auto) 3.8, Lymph # (Auto) 1.2, [place] # (Auto) 0.6, Eos # (Auto) 0.2, Baso # (Auto) 0.0, Immature Gran # (Auto) 0.0 01/08/22 17:08: Influ A Molecular Assay Negative by naat, Influ B Molecular Assay Negative by naat 01/08/22 17:08: SARS CoV-2 RNA Rapid BALWINDER Negative ASSESSMENT: Please see below. 1. Acute COPD exacerbation 2. Chronic respiratory failure 3. Anxiety PLAN: 1. Urinalysis 2. Continue Trelegy at night 3. Solu-Medrol 100mg TID Plan and coordination of the patient's care discussed in the presence of Motor Vehicle Or Caravan Salesperson and nurse. SCRIBED BY: KAMI GALEANA Trust Administrative Assistant scribed while in presence of service performed by Dr. Schulte/Debbie Garcia APRN on 01/09/22 ([id number])
[2022-01-09 09:31] LABS: ABG O2 HGB 93.2 % (95-100); ABG PH 7.37 (7.35-7.45); BEecf 2.4 (-2.0-3.0); COHb 2.5 (0.5-1.5); HCO3 27.7 (21-28); MetHb 1.3 (0-1.5); TCO2 29.2 (19-24); sO2 94.4 % (94-98); tHb 14.5 g/dl (11.7-17.4)
[2022-01-09] MEDS: COZAAR PO SCH ×2 (09:38→20:43)
[2022-01-09] MEDS: NORVASC PO SCH ×2 (09:39→20:42)
[2022-01-09] MEDS: MUCINEX PO SCH ×2 (09:39→20:43)
[2022-01-09] MEDS: ZANAFLEX PO SCH ×2 (09:39→20:42)
[2022-01-09] MEDS: MINOXIDIL PO SCH ×2 (09:39→20:43)
[2022-01-09] MEDS: XANAX PO SCH ×3 (09:40→20:43)
[2022-01-09] MEDS: LEXAPRO PO SCH (09:40)
[2022-01-09] MEDS: LOVENOX SUBCUT SCH (09:44)
[2022-01-09] MEDS: ROCEPHIN 1 GM/50 ML D5W 1 GM/50 ML BAG IV SCH (10:23)
[2022-01-09] MEDS: ANORO ELLIPTA 62.5-25 MCG INH IH SCH (10:24)
[2022-01-09] MEDS: SOLU-MEDROL 125 MG IVP SCH ×3 (10:24→20:42)
[2022-01-09] MEDS: MIRALAX PO SCH ×2 (10:24→20:42)
[2022-01-09] MEDS: CATAPRES PO SCH (14:39)
[2022-01-09] MEDS ORDERED: MIRALAX PO SCH (17:00)
[2022-01-09 19:01] LABS: BILIRUBIN,URINE Negative (NEGATIVE); CLARITY,URINE Clear (CLEAR); COLOR,URINE Yellow (YELLOW); GLUCOSE, URINE (UA) Negative (NEGATIVE); KETONES,URINE Negative (NEGATIVE); LEUKOCYTE ESTERASE ,URINE Negative (NEGATIVE); NITRITE,URINE Negative (NEGATIVE); PROTEIN,URINE 1+ (NEGATIVE); URINE, BLOOD Trace-lysed (NEGATIVE); UROBILINOGEN,URINE 0.2 (0.2)
[2022-01-09 19:11] LABS: SQUAMOUS EPITHELIAL CELL,UR 0-2 (0-5); URINE RBC, MICROSCOPIC 0-2 (0-2)
[2022-01-09] MEDS: ASPIRIN EC PO SCH (20:42)
[2022-01-09] MEDS: FLOMAX PO SCH (20:42)
[2022-01-10] MEDS: ALBUTEROL 0.083% NEB NEB SCH ×4 (04:50→19:11)
[2022-01-10 05:22] LABS: HEMATOCRIT 36.9 % (42.0-52.0); HEMOGLOBIN 12.4 g/dl (14.0-18.0); MEAN CORPUSCULAR HEMOGLOBIN 31.6 pg (27.0-31.0); MEAN CORPUSCULAR HGB CONC 33.6 (31.8-35.4); MEAN CORPUSCULAR VOLUME 93.9 fl (80.0-94.0); PLATELET COUNT 146 10^3/uL (140-440); RDW COEFFICIENT OF VARIATION 13.4 % (11.6-14.8); RED BLOOD COUNT 3.93 10^6/ul (4.70-6.10); WHITE BLOOD COUNT 6.34 K/ul (4.2-10.2)
[2022-01-10 05:36] LABS: ANISOCYTOSIS NOT PRESENT (NOT PRESENT)
[2022-01-10 05:37] LABS: ALANINE AMINOTRANSFERASE 16.3 U/L (0-50); ALBUMIN 3.88 g/dL (3.5-5.0); ALKALINE PHOSPHATASE 48.6 U/L (56-119); BILIRUBIN,TOTAL 0.36 mg/dL (0.2-1.3); BLOOD UREA NITROGEN 29.6 mg/dL (9-20); CALCIUM 9.32 mg/dL (8.4-10.2); CARBON DIOXIDE 26.4 mmol/L (22-30.0); CHLORIDE 97.9 mmol/L (98-107); CREATININE 1.06 mg/dL (0.60-1.10); GLUCOSE 135.8 mg/dL (74-106); POTASSIUM 4.58 mmol/L (3.5-5.1); SODIUM 132.3 mmol/L (134.5-145); TOTAL PROTEIN 6.68 g/dL (6.3-8.2)
[2022-01-10] MEDS: PROTONIX PO SCH (06:01)
[2022-01-10] MEDS: LASIX TAB PO SCH (06:01)
[2022-01-10] MEDS: SOLU-MEDROL 125 MG IVP SCH ×3 (08:14→20:59)
[2022-01-10] MEDS: MIRALAX PO SCH ×2 (08:25→20:59)
[2022-01-10] MEDS: CATAPRES PO SCH (08:26)
[2022-01-10] MEDS: MUCINEX PO SCH ×2 (08:26→20:59)
[2022-01-10] MEDS: COZAAR PO SCH ×2 (08:26→20:58)
[2022-01-10] MEDS: LEXAPRO PO SCH (08:26)
[2022-01-10] MEDS: XANAX PO SCH ×2 (08:26→20:59)
[2022-01-10] MEDS: NORVASC PO SCH ×2 (08:26→20:59)
[2022-01-10] MEDS: ZANAFLEX PO SCH (08:26)
[2022-01-10] MEDS: MINOXIDIL PO SCH ×2 (08:26→20:58)
[2022-01-10] MEDS: ANORO ELLIPTA 62.5-25 MCG INH IH SCH (08:27)
[2022-01-10] MEDS: LOVENOX SUBCUT SCH (08:27)
[2022-01-10] MEDS: COREG PO SCH ×2 (08:27→17:19)
[2022-01-10] MEDS: ROCEPHIN 1 GM/50 ML D5W 1 GM/50 ML BAG IV SCH (08:27)
--- NOTE | 2022-01-10 09:09 | HP ---
DATE OF SERVICE: 01/08/22 REASON FOR HOSPITALIZATION/HISTORY OF PRESENT ILLNESS: 81 year old white male who presents to the emergency room complaining of worsening shortness of breath for the past several days. He has chronic respiratory failure and is on oxygen. 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 No fatigue, malaise, lethargy. No fever or chills. HEENT: Eyes: No visual changes. No eye pain. No eye discharge. ENT: No runny nose. No epistaxis. No sinus pain. No sore throat. No odynophagia. No ear pain. No congestion. RESPIRATORY: Cough, no congestion. No hemoptysis. shortness of breath. CARDIOVASCULAR: No angina symptoms. No CHF symptoms. No atypical chest pain for CAD. No palpitations. No PND. No orthopnea. GASTROINTESTINAL: No abdominal pain. No nausea or vomiting. No diarrhea or constipation. No hematemesis. No hematochezia. GENITOURINARY: No urgency. No frequency. No dysuria. No hematuria. No obstructive symptoms. No discharge. No pain. No significant abnormal bleeding. MUSCULOSKELETAL: No musculoskeletal pain. No joint swelling. No arthritis. NEUROLOGICAL: No headache. No neck pain. No syncope. No seizures. No dizziness. PSYCHIATRIC: Anxious. No depression. No suicidal thoughts. No homicidal thoughts. SKIN: No rash. No lesions. No wounds. ENDOCRINE: No unexplained weight loss. No weight gain. HEMATOLOGIC/LYMPHATIC: No anemia. No purpura. No petechiae. No prolonged or excessive bleeding. No palpable lymph nodes. PERSONAL/FAMILY/SOCIAL HISTORY: He lives at home. He is a former smoker. He is by himself. No alcohol or illicit drug use. MEDICATIONS: Aspirin 81mg Po daily Tamsulosin 0.8mg PO bedtime Albuterol inhaler two puff Q 4-6 hours Protonix 40mg Po dily Albuterol sulfate one vial NEB QID Budesonide 0.5mg inhalation BID Mucinex 1200mg PO BID Xanax 0.5mg PO TID Lasix 20mg PO daily Clonidine 0.2mg PO daily Losartan 50mg PO BID Propylene glycol one drop both eyes 5XD PRN Minoxidil 5mg PO BID Amlodipine 5mg PO BID Stiolto Respimat 2 puff inhalation Daily Miralax 17gram PO 1700 Miralax 17gram PO daily Escitalopram 20mg PO daily Tizanidine 4mg PO BID Coreg 12.5mg PO BID ALLERGIES: Levofloxacin Ipratropium PHYSICAL EXAMINATION: VITAL SIGNS: Temperature 98, heart rate 81, respiratory rate 19, blood pressure 121/79, pulse ox 92% on 4 liters. HEENT: Head normocephalic, atraumatic. Eyes: Extraocular muscles are intact. Pupils are equal, round and reactive to light and accommodation. Ears: No lesions. Nose appeared normal. Throat: No exudate or erythema. NECK: Supple. No JVD, no carotid bruit. No lymphadenopathy or thyromegaly. LUNGS: Diminished breath sounds. Clear to auscultation. Percussion note normal. Chest symmetrical. HEART: S1, S2, no S3. No murmur. No cyanosis or clubbing. No ascites. Pulses: Dorsalis pedis and posterior tibial pulses +1 to +2 bilaterally. ABDOMEN: Soft. Nontender. Bowel sounds active. No CVA tenderness. No mass felt. EXTREMITIES: No edema. Full range of motion of all extremities, equal. NEUROLOGIC: No focal deficit. Cranial nerves II through XII are grossly intact. No headache, no double vision or headache. The patient is anxious. SKIN: Not dry. Intact. Turgor - normal. LYMPHATIC: No palpable lymph nodes/no lymphedema. MUSCULOSKELETAL: Normal joints with no swelling. Muscle tone is normal. LABS: WBC 5.76, hgb 13.6, hct 41.2, plt count 144, sodium 132, potassium 4.4, BUN 15, creatinine 0.89, glucose 94. Influenza A and B is negative. COVID negative. Initial ABG on 4 liters O2 saturation 93, pH 7.36, pCO2 53, pO2 71. Bicarb 29.9. Saturation 93%. Troponin normal. Chest x-ray shows no acute process. ASSESSMENT: 1. Acute COPD exacerbation 2. Chronic respiratory failure 3. Anxiety 4. Endstage COPD PLAN: 1. We will admit 2. Routine telemetry orders 3. CBC and CMP daily 5. Start Rocephin 1 gram IV daily 6. Continue home medications 7. Trelegy at night 8. Albuterol NEBS TID scheduled 9. Solu-Medrol 100mg Q 8 hours 10.Regular diet 11.Will follow closely. TIME SPENT: More than 70 minutes. MTDD
--- NOTE | 2022-01-10 13:16 | PN ---
DATE OF SERVICE: 01/08/22 ADMIT NOTE. SUBJECTIVE: The patient was seen and examined in the emergency room by ER attending 01/08/22. The patient came in with COPD exacerbation with severe chronic endstage lung disease. He has history of coronary artery disease. REVIEW OF SYSTEMS: CONSTITUTIONAL: No night sweats. No fatigue, malaise, lethargy. No fever or chills. HEENT: Eyes: No visual changes. No eye pain. No eye discharge. ENT: No runny nose. No epistaxis. No sinus pain. No sore throat. No odynophagia. No congestion. RESPIRATORY: No cough, no congestion. No hemoptysis. No shortness of breath. CARDIOVASCULAR: No angina symptoms. No CHF symptoms. No atypical chest pain for CAD. No palpitations. No PND. No orthopnea. GASTROINTESTINAL: No abdominal pain. No nausea or vomiting. No diarrhea or constipation. No hematemesis. No hematochezia. GENITOURINARY: No urgency. No frequency. No dysuria. No hematuria. No obstructive symptoms. No discharge. No pain. No significant abnormal bleeding. MUSCULOSKELETAL: No musculoskeletal pain; no joint swelling. NEUROLOGICAL: No headache. No neck pain. No syncope. No seizures. No dizziness. PSYCHIATRIC: Not anxious. No depression. No suicidal thoughts. No homicidal thoughts. SKIN: No rash. No lesions. No wounds. ENDOCRINE: No unexplained weight loss. No weight gain. HEMATOLOGIC/LYMPHATIC: No anemia. No purpura. No petechiae. No prolonged or excessive bleeding. No palpable lymph nodes. PHYSICAL EXAMINATION: GENERAL: The patient was in mild distress when he came in but now has settled down according to the emergency physician. HEENT: Head normocephalic, atraumatic. Eyes: Extraocular muscles are intact. Pupils are equal, round and reactive to light and accommodation. Ears: No lesions. Nose appeared normal. Throat: No exudate or erythema. NECK: Supple. No JVD, no carotid bruit. No lymphadenopathy or thyromegaly. LUNGS: Decreased breath sounds. Clear to auscultation. Percussion note normal. Chest symmetrical. HEART: S1, S2, no S3. No murmurs. No cyanosis or clubbing. No ascites. Pulses: Dorsalis pedis and posterior tibial pulses +1 to +2 bilaterally. ABDOMEN: Soft. Nontender. Bowel sounds active. No CVA tenderness. No mass felt. EXTREMITIES: No edema. Full range of motion of all extremities, equal. NEUROLOGIC: No focal deficit. Cranial nerves II through XII are grossly intact. No headache. No double vision. SKIN: Not dry. Intact. Turgor - normal. LYMPHATIC: No palpable lymph nodes/no lymphedema. MUSCULOSKELETAL: Normal joints with no swelling. Muscle tone is normal. LABS: EKG had no acute changes. Atrial blood gasses are acceptable pO2 level with no CO2 retention. PLAN: 1. Hospitalize the patient for COPD exacerbation 2. Treat with antibiotics and steroids. 3. NEBS treatment. TIME SPENT: More than 30 minutes. Plan and coordination of the patient's care discussed in the presence of nurse. NITIN
[2022-01-10] MEDS ORDERED: CATAPRES PO SCH (14:00)
[2022-01-10] MEDS: FLOMAX PO SCH (20:58)
[2022-01-10] MEDS: ASPIRIN EC PO SCH (20:58)
[2022-01-11] MEDS: ALBUTEROL 0.083% NEB NEB SCH ×4 (04:50→19:25)
[2022-01-11] MEDS: LASIX TAB PO SCH (05:34)
[2022-01-11] MEDS: PROTONIX PO SCH (05:34)
[2022-01-11] MEDS ORDERED: CATAPRES PO PRN (08:25)
[2022-01-11] MEDS ORDERED: CATAPRES PO SCH (09:00)
--- NOTE | 2022-01-11 09:34 | PCM.PROG ---
Attending Provider: ATTENDING PROVIDER: Dr. HAILEY SCHULTE This patient is seen with Debbie Garcia, Nurse Practitioner. DATE OF SERVICE: 01/11/22 SUBJECTIVE: This 81 year old /WHITE M was hospitalized 01/08/22. Resting comfortably. Oxygen saturation greater than 95%. Plan on discharge home tomorro w. REVIEW OF SYSTEMS: CONSTITUTIONAL: No night sweats. No fatigue, malaise, lethargy. No fever or chills. HEENT: Eyes: No visual changes. No eye pain. No eye discharge. ENT: No runny nose. No epistaxis. No sinus pain. No odynophagia. No congestion. RESPIRATORY: No cough, no congestion. No hemoptysis. Shortness of breath. CARDIOVASCULAR: No angina symptoms. No CHF symptoms. No atypical chest pain for CAD. No palpitations. No orthopnea.. GASTROINTESTINAL: No abdominal pain. No nausea or vomiting. No diarrhea or constipation. No hematemesis. No hematochezia. GENITOURINARY: No urgency. No frequency. No dysuria. No hematuria. No obstructive symptoms. No discharge. No pain. No significant abnormal bleeding. MUSCULOSKELETAL: No musculoskeletal pain; no joint swelling. NEUROLOGICAL: Awake, alert, oriented to time, place and person. No headache. No neck pain. No syncope. No seizures. No dizziness. PSYCHIATRIC: Anxious. No depression. No suicidal thoughts. No homicidal thoughts. SKIN: No rash. No lesions. No wounds. ENDOCRINE: No unexplained weight loss. No weight gain. HEMATOLOGIC/LYMPHATIC: No anemia. No purpura. No petechiae. No prolonged or excessive bleeding. No palpable lymph nodes. PHYSICAL EXAMINATION: GENERAL: The patient is awake, alert and oriented, lying in bed in no distress. VITAL SIGNS: Temperature 97.0 F, Pulse 78, Respiratory Rate 16, BP 150/85, Pulse Ox 97% HEENT: Head normocephalic, atraumatic. Eyes: Extraocular muscles are intact. Pupils are equal, round and reactive to light and accommodation. Ears: No lesions. Nose appeared normal. Throat: No exudate or erythema. NECK: Supple. No JVD, no carotid bruit. No lymphadenopathy or thyromegaly. LUNGS: Diminished breath sounds. Clear to auscultation. Percussion note normal. Chest symmetrical. HEART: S1, S2, no S3. No murmurs. No cyanosis or clubbing. No ascites. Pulses: Dorsalis pedis and posterior tibial pulses +1 to +2 both sides. ABDOMEN: Soft. Non-tender. Bowel sounds active. No CVA tenderness. No mass felt. EXTREMITIES: No edema. Full range of motion of all extremities, equal. NEUROLOGIC: No focal deficit. Cranial nerves II through XII are grossly intact. No headache. No double vision. SKIN: Not dry. Intact. Turgor-normal. LYMPHATIC: No palpable lymph nodes/no lymphedema. MUSCULOSKELETAL: Normal joints with no swelling. Muscle tone is normal. LAB REVIEW: 01/10/22 05:00 01/10/22 05:00 ASSESSMENT: Please see below. 1. Acute COPD exacerbation 2. Chronic respiratory failure 3. Hypertension 4. Anxiety PLAN: 1. Discontinue Rocephin 2. Discontinue Solu-Medrol 3. Start Prednisone 20mg BID 4. Keflex 500mg PO TID 5. Clonidine 0.1mg daily PRN for systolic greater than 160. Plan and coordination of the patient's care discussed in the presence of Teenage Babysitter and nurse. SCRIBED BY: Merced VELEZist scribed while in presence of service performed by Dr. Schulte/Debbie Garcia APRN on 01/11/22 ([id number])
[2022-01-11] MEDS: LOVENOX SUBCUT SCH (09:45)
[2022-01-11] MEDS: MIRALAX PO SCH ×2 (09:46→21:43)
[2022-01-11] MEDS: KEFLEX PO SCH ×3 (09:46→21:44)
[2022-01-11] MEDS: MINOXIDIL PO SCH ×2 (09:47→21:43)
[2022-01-11] MEDS: MUCINEX PO SCH ×2 (09:47→21:43)
[2022-01-11] MEDS: NORVASC PO SCH ×2 (09:47→21:44)
[2022-01-11] MEDS: XANAX PO SCH ×2 (09:47→21:44)
[2022-01-11] MEDS: COREG PO SCH ×2 (09:48→17:24)
[2022-01-11] MEDS: LEXAPRO PO SCH (09:48)
[2022-01-11] MEDS: COZAAR PO SCH ×2 (09:48→21:44)
[2022-01-11] MEDS: ANORO ELLIPTA 62.5-25 MCG INH IH SCH (09:55)
[2022-01-11] MEDS: CATAPRES PO SCH (14:05)
[2022-01-11] MEDS: PREDNISONE PO SCH (17:24)
[2022-01-11] MEDS: DIFLUCAN PO SCH (17:55)
[2022-01-11] MEDS: NYSTATIN ORAL SUSP PO SCH ×2 (17:56→21:46)
[2022-01-11] MEDS: FLOMAX PO SCH (21:43)
[2022-01-11] MEDS: ASPIRIN EC PO SCH (21:44)
[2022-01-12] MEDS: ALBUTEROL 0.083% NEB NEB SCH ×3 (04:45→13:58)
[2022-01-12 05:21] LABS: BASOPHILS % (AUTO) 0.1 % (0.0-3.0); HEMATOCRIT 40.7 % (42.0-52.0); HEMOGLOBIN 13.3 g/dl (14.0-18.0); IMMATURE GRANULOCYTE # (AUTO) 0.1 (0.0-1.0); IMMATURE GRANULOCYTE % (AUTO) 0.8 % (0.0-5.0); LYMPHOCYTES # (AUTO) 0.8 K/uL (0.60-3.4); LYMPHOCYTES % (AUTO) 10.3 (10.0-50.0); MEAN CORPUSCULAR HEMOGLOBIN 31.4 pg (27.0-31.0); MEAN CORPUSCULAR HGB CONC 32.7 (31.8-35.4); MONOCYTES # (AUTO) 0.7 K/uL (0.4-2.0); MONOCYTES % (AUTO) 8.1 (0-10); NEUTROPHILS # (AUTO) 6.4 K/ul (2.0-6.9); NEUTROPHILS % (AUTO) 80.7 % (42.2-75.2); PLATELET COUNT 160 10^3/uL (140-440); RDW COEFFICIENT OF VARIATION 14.1 % (11.6-14.8); RED BLOOD COUNT 4.24 10^6/ul (4.70-6.10); WHITE BLOOD COUNT 7.98 K/ul (4.2-10.2)
[2022-01-12 05:35] LABS: ALANINE AMINOTRANSFERASE 24.4 U/L (0-50); ALBUMIN 3.99 g/dL (3.5-5.0); ALKALINE PHOSPHATASE 45.3 U/L (56-119); ASPARTATE AMINO TRANSFERASE 25.1 U/L (17-59); BILIRUBIN,TOTAL 0.41 mg/dL (0.2-1.3); BLOOD UREA NITROGEN 32.4 mg/dL (9-20); CALCIUM 9.34 mg/dL (8.4-10.2); CARBON DIOXIDE 26.9 mmol/L (22-30.0); CHLORIDE 98.8 mmol/L (98-107); CREATININE 1.02 mg/dL (0.60-1.10); GLUCOSE 109.2 mg/dL (74-106); SODIUM 130.8 mmol/L (134.5-145); TOTAL PROTEIN 6.83 g/dL (6.3-8.2)
[2022-01-12] MEDS: LASIX TAB PO SCH (06:04)
[2022-01-12] MEDS: NYSTATIN ORAL SUSP PO SCH ×3 (06:04→16:25)
[2022-01-12] MEDS: PROTONIX PO SCH (06:05)
[2022-01-12] MEDS ORDERED: CATAPRES PO SCH (09:00)
[2022-01-12] MEDS: MIRALAX PO SCH (09:25)
[2022-01-12] MEDS: MINOXIDIL PO SCH (09:26)
[2022-01-12] MEDS: NORVASC PO SCH (09:27)
[2022-01-12] MEDS: MUCINEX PO SCH (09:27)
[2022-01-12] MEDS: COZAAR PO SCH (09:27)
[2022-01-12] MEDS: COREG PO SCH ×2 (09:27→16:25)
[2022-01-12] MEDS: LEXAPRO PO SCH (09:28)
[2022-01-12] MEDS: DIFLUCAN PO SCH (09:28)
[2022-01-12] MEDS: PREDNISONE PO SCH ×2 (09:28→16:25)
[2022-01-12] MEDS: XANAX PO SCH (09:28)
[2022-01-12] MEDS: KEFLEX PO SCH ×2 (09:28→14:20)
[2022-01-12] MEDS: ANORO ELLIPTA 62.5-25 MCG INH IH SCH (09:30)
[2022-01-12] MEDS: LOVENOX SUBCUT SCH (09:31)
[2022-01-12] MEDS ORDERED: DIFLUCAN PO ONE (12:50)
[2022-01-12] MEDS: CATAPRES PO SCH (14:20)
--- NOTE | 2022-01-12 14:39 | PN ---
DATE OF SERVICE: 01/09/22 SUBJECTIVE: The patient was seen and examined with the Nurse Practitioner. The patient's condition is more or less stable. No evidence of CHF or coronary insufficiency. He is not in distress while at rest. The patient is very anxious. He is just hook on her heart rate reading and he is concerned about oximetry 85-83 in that range with exertion without oxygen when he goes to the bathroom. Explained to him that with exertion his oximetry readings would be less than 90% because of here severe chronic lung disease. The patient has sinus drainage and yellowish discharge coming out. The patient is already on antibiotics. Side effects of steroids discussed with the patient including avascular necrosis of the femoral head. CONDITION: Stable PROGNOSIS: Not good. TIME SPENT: More than 30 minutes. Plan and coordination of the patient's care discussed in the presence of nurse. NITIN
--- NOTE | 2022-01-12 15:10 | US ---
EXAM: Duplex venous Doppler ultrasound of the left upper extremity veins HISTORY: Tenderness in the left arm TECHNIQUE: Reyna scale and color Doppler imaging and spectral Doppler imaging of the left upper extre mities was performed. FINDINGS: There is normal response to compression and normal blood flow identified within the left j ugular, left subclavian, left axillary, left brachial and left cephalic and basilic veins and within the radial and ulnar veins. No abnormal filling defects are identified within the lumen of the veins . There was normal response to augmentation. IMPRESSION: No evidence of deep venous thrombus identified within the left upper extremity veins.
[2022-01-12 16:24] VITALS: BP 136/73; TEMP 96.8
--- NOTE | 2022-01-16 11:52 | PN ---
DATE OF SERVICE: 01/10/22 SUBJECTIVE: 81 year old white male hospitalized with COPD exacerbation. The patient's condition has steadily improved. He is feeling better. REVIEW OF SYSTEMS: CONSTITUTIONAL: No night sweats. No fatigue, malaise, lethargy. No fever or chills. HEENT: Eyes: No visual changes. No eye pain. No eye discharge. ENT: No runny nose. No epistaxis. No sinus pain. No sore throat. No odynophagia. No congestion. RESPIRATORY:Mild cough with shortness of breath minimal exertion.. No hemoptysis. CARDIOVASCULAR: No angina symptoms. No CHF symptoms. No atypical chest pain for CAD. No palpitations. No PND. No orthopnea. GASTROINTESTINAL: No abdominal pain. No nausea or vomiting. No diarrhea or constipation. No hematemesis. No hematochezia. GENITOURINARY: No urgency. No frequency. No dysuria. No hematuria. No obstructive symptoms. No discharge. No pain. No significant abnormal bleeding. MUSCULOSKELETAL: No musculoskeletal pain; no joint swelling. NEUROLOGICAL: No headache. No neck pain. No syncope. No seizures. No dizziness. PSYCHIATRIC: Not anxious. No depression. No suicidal thoughts. No homicidal thoughts. SKIN: No rash. No lesions. No wounds. ENDOCRINE: No unexplained weight loss. No weight gain. HEMATOLOGIC/LYMPHATIC: No anemia. No purpura. No petechiae. No prolonged or excessive bleeding. No palpable lymph nodes. PHYSICAL EXAMINATION: GENERAL: The patient is oriented to time, place and person. VITAL SIGNS: Temperature 96.8, pulse 80, respiratory rate 16, blood pressure 115/66, pulse ox 92% on 2 liters. HEENT: Head normocephalic, atraumatic. Eyes: Extraocular muscles are intact. Pupils are equal, round and reactive to light and accommodation. Ears: No lesions. Nose appeared normal. Throat: No exudate or erythema. NECK: Supple. No JVD, no carotid bruit. No lymphadenopathy or thyromegaly. LUNGS: Decreased breath sounds but clear to auscultation. Percussion note normal. Chest symmetrical. HEART: S1, S2, no S3. No murmurs. No cyanosis or clubbing. No ascites. Pulses: Dorsalis pedis and posterior tibial pulses +1 to +2 bilaterally. ABDOMEN: Soft. Nontender. Bowel sounds active. No CVA tenderness. No mass felt. EXTREMITIES: No edema. Full range of motion of all extremities, equal. NEUROLOGIC: No focal deficit. Cranial nerves II through XII are grossly intact. No headache. No double vision. SKIN: Not dry. Intact. Turgor - normal. LYMPHATIC: No palpable lymph nodes/no lymphedema. MUSCULOSKELETAL: Normal joints with no swelling. Muscle tone is normal. LABS: hgb 12.4, hct 30, WBC 6,300 normal differential, creatinine 1, BUN 29, potassium 4.5. ASSESSMENT: 1. Acute COPD exacerbation with severe chronic lung disease, oxygen dependent 2. Coronary artery disease 3. Dyslipidemia 4. Hypertension PLAN: 1. Continue the same treatment with NEBS, steroids and antibiotics 2. He wants to change his Clonidine 0.1mg in the morning and 0.2mg at 2pm. 3. He says that she is feeling sleepy in the daytime. We will discontinue Zanaflex 4. Xanax will be reduced to twice a day TIME SPENT: More than 30 minutes. Plan and coordination of the patient's care discussed in the presence of nurseLobito TAVERAS
--- NOTE | 2022-01-16 13:29 | PN ---
DATE OF SERVICE: 01/12/22 SUBJECTIVE: 81 year old white male has been hospitalized with COPD exacerbation. The patient's condition has improved. He is ready to go home. REVIEW OF SYSTEMS: CONSTITUTIONAL: No night sweats. No fatigue, malaise, lethargy. No fever or chills. HEENT: Eyes: No visual changes. No eye pain. No eye discharge. ENT: No runny nose. No epistaxis. No sinus pain. No sore throat. No odynophagia. No congestion. RESPIRATORY: Less cough, no congestion. No hemoptysis. No shortness of breath. CARDIOVASCULAR: No angina symptoms. No CHF symptoms. No atypical chest pain for CAD. No palpitations. No PND. No orthopnea. GASTROINTESTINAL: No abdominal pain. No nausea or vomiting. No diarrhea or constipation. No hematemesis. No hematochezia. GENITOURINARY: No urgency. No frequency. No dysuria. No hematuria. No obstructive symptoms. No discharge. No pain. No significant abnormal bleeding. MUSCULOSKELETAL: No musculoskeletal pain; no joint swelling. Complaining of left upper extremity swelling. NEUROLOGICAL: No headache. No neck pain. No syncope. No seizures. No dizziness. PSYCHIATRIC: Less anxious. No depression. No suicidal thoughts. No homicidal thoughts. SKIN: No rash. No lesions. No wounds. ENDOCRINE: No unexplained weight loss. No weight gain. HEMATOLOGIC/LYMPHATIC: No anemia. No purpura. No petechiae. No prolonged or excessive bleeding. No palpable lymph nodes. PHYSICAL EXAMINATION: GENERAL: The patient is oriented to time, place and person. VITAL SIGNS: Temperature 97.2, pulse 94, respiratory rate 18, blood pressure 140/70 and pulse ox 96%. HEENT: Head normocephalic, atraumatic. Eyes: Extraocular muscles are intact. Pupils are equal, round and reactive to light and accommodation. Ears: No lesions. Nose appeared normal. Throat: No exudate or erythema. NECK: Supple. No JVD, no carotid bruit. No lymphadenopathy or thyromegaly. LUNGS: Decreased breath sounds but good air entry. Clear to auscultation. Percussion note normal. Chest symmetrical. HEART: S1, S2, no S3. No murmurs. No cyanosis or clubbing. No ascites. Pulses: Dorsalis pedis and posterior tibial pulses +1 to +2 bilaterally. ABDOMEN: Soft. Protuberant. Nontender. Bowel sounds active. No CVA tenderness. No mass felt. EXTREMITIES: Trace edema, left upper extremity more swollen than the right. Swelling is just generalized could be patient is laying on the left side. That could make it swell. Full range of motion of all extremities, equal. NEUROLOGIC: No focal deficit. Cranial nerves II through XII are grossly intact. No headache. No double vision. SKIN: Not dry. Intact. Turgor - normal. LYMPHATIC: No palpable lymph nodes/no lymphedema. MUSCULOSKELETAL: Normal joints with no swelling. Muscle tone is normal. LABS: Hgb 13.3, hct 40, WBC 7,900, normal differential, creatinine 1, BUN 32, potassium 5. ASSESSMENT: 1. Acute exacerbation of COPD seems to have resolved 2. Left upper extremity swelling. The patient's venous scan was done later on was reported as normal. PLAN: 1. The patient is to be discharged home on Prednisone 10mg BID for 5 days and Keflex 500mg TID for 5 days. 2. The patient has thrush going to be treated with Nystatin and Diflucan. 3. The patient's is very anxious. He checks his oximetry around the clock. Advised to discontinue that. Check it while he is in bed a couple of times a day. No need to check it on exertion or going to the bathroom without oxygen because it is going to 80-85. The patient gets anxious whenever that happens. With his oxygen on his saturation is always more than 90. The patient's condition at the time of discharge is stable. TIME SPENT: More than 30 minutes. Plan and coordination of the patient's care discussed in the presence of nurse. NITIN
--- NOTE | 2022-01-16 14:33 | DS ---
DATE OF SERVICE: 01/12/22 FINAL DIAGNOSIS: 1. Acute exacerbation of COPD 2. Chronic respiratory failure 3. Chronic bronchitis 4. History of hypertension 5. History of dyslipidemia 6. Generalized anxiety disorder with mild depression 7. Thrush DISCHARGE INSTRUCTIONS: Discharge home today per Dr. Gonzalez. Oxygen Trilogy continue same oxygen regimen as prior hospitalization. Continue to wear Trilogy while sleeping. May resume all other home medications as you were proper to hospital stay. Monitor blood pressure and keep recordings to present to followup appointment. You have a followup appointment with Dr. Gonzalez's office on January 18 at 1:15pm. Advised to continue all home medications as before. MEDICATIONS AT DISCHARGE: Aspirin Tamsulosin Ventolin HFA PRN Pantoprazole Nebulizer Albuterol Budesonide Nebulization twice a day Xanax 0.5mg TID PRN Lasix Clonidine dose has been changed to 0.1mg in the morning and 0.2mg in the afternoon at 2pm. Losartan Amlodipine Minoxidil Lexapro Carvedilol Xanax NEW PRESCRIPTIONS: Nystatin QID gargling for 5 days Diflucan 150mg every other day times two Keflex 500mg TID for 5 days Prednisone 10mg BID for 5 days. Side effects of Prednisone discussed including necrosis of femoral heads, osteoporosis etc. DIET INSTRUCTIONS: Regular with thin liquids ACTIVITY: As tolerated. Take frequent breaks as needed. Use assistive device with ambulation. HOSPITAL COURSE: 81 year old white male was brought to the emergency room with COPD exacerbation. The patient is very anxious. He get very anxious when he checks his oximetry and finds it to be in 80, not uncommon for him to happen he goes to the bathroom without oxygen. It returns to 90-95 with 2 liters. He was reassured and an explanation about all this. He was treated with steroids, antibiotics. The patient's condition improved. His mental status also improved. The patient had thrush from antibiotics. The patient was treated with Diflucan and Nystatin. At the time of discharge the patient was put on Keflex and Prednisone to be followed as an outpatient. The patient declined pulmonary rehab. CONDITION: Stable The patient is a DNR. TIME SPENT: More than 60 minutes. [facility]
--- NOTE | 2022-01-16 14:34 | PN ---
01/08/22: Level 5 01/09/22: Intermediate 01/10/22: Intermediate 01/11/22: Intermediate 01/12/22: D as in discharge MTDD
== END 2022-01-12 16:45 | disposition home or self-care (01) | DRG 191 ==
LOC: ED 16:47 → MEDSURG A 20:08
PROVIDERS: ADMIT Internal Medicine; ATTEND Internal Medicine
DX: Z51.81 Encounter for therapeutic drug level monitoring; J96.10 Chronic respiratory failure, unspecified whether with hypoxia or hypercapnia; B37.9 Candidiasis, unspecified; R06.02 Shortness of breath; J44.9 Chronic obstructive pulmonary disease, unspecified; Z79.899 Other long term (current) drug therapy; I25.10 Atherosclerotic heart disease of native coronary artery without angina pectoris; I10 Essential (primary) hypertension; F32.A Depression, unspecified; Z99.81 Dependence on supplemental oxygen; F41.1 Generalized anxiety disorder; R22.33 Localized swelling, mass and lump, upper limb, bilateral; J44.1 Chronic obstructive pulmonary disease with (acute) exacerbation; E78.5 Hyperlipidemia, unspecified; N18.2 Chronic kidney disease, stage 2 (mild); Z20.822 Contact with and (suspected) exposure to COVID-19

== ENCOUNTER 2022-02-05 18:22 | Inpatient (IN) ==
[2022-02-05] MEDS ORDERED: DUONEB NEB ONE (18:37)
[2022-02-05] MEDS ORDERED: SOLU-MEDROL 125 MG IVP STA (18:37)
--- NOTE | 2022-02-05 18:42 | ED.PDOC ---
General <KERVIN GALINDO MD - Last Filed: 02/05/22 18:43> ED Provider: Dr. KERVIN GALINDO MD Chief Complaint: Shortness of Air Stated Complaint: mild to mod short of breath today w/ wheezing, hx copd on home oxygen, no chest pain, no fever, no rash, no lethargy, +CANO Time Seen by Provider: 02/05/22 18:34 Mode of Arrival: Ambulance Information Source: Patient and EMT Primary Care Provider: HAILEY GONZALEZ Sepsis Protocol: For patient's 13 years and over: Temp is 96.8 and below OR 101 and greater Pulse >90 BPM Resp >20/minute Acutely Altered Mental Status Are patient's symptoms suggestive of a new infection, such as: -Pneumonia -Skin, Soft Tissue -Endocarditis -UTI -Bone, Joint Infection -Implantable Device -Acute Abdominal Infection -Wound Infection -Meningitis -Blood Stream Catheter Infection -Unknown <MARCI PAYTON MD - Last Filed: 02/06/22 03:40> Nursing and Triage Documentation Reviewed and Agree: Yes Does patient meet sepsis criteria?: No If yes, has appropriate treatment been initiated?: No System Inflammatory Response Syndrome: Not Applicable Review of Systems <KERVIN GALINDO MD - Last Filed: 02/05/22 18:43> Review Of Systems Constitutional: Reports Malaise; Denies Fever Eyes: Denies Vision change Ears, Nose, Mouth, Throat: Denies Nose discharge Respiratory: Reports Cough, Short of air and Wheezing; Denies Stridor Cardiac: Denies Chest pain GI: Denies Abdominal pain or Vomiting : Denies Frequency Musculoskeletal: Reports Muscle pain Skin: Denies Bruising Neurological: Denies Cognitive dysfunction All Other Systems: Other PFSH <KERVIN GALINDO MD - Last Filed: 02/05/22 18:43> Medical History Anxiety Arteriosclerosis Blood disease BPH (benign prostatic hyperplasia) CAD (coronary artery disease) Cancer of skin of external nose (~10/04/20) Chronic bronchitis Chronic hyponatremia Chronic respiratory failure CKD (chronic kidney disease) stage 3, GFR 30-59 ml/min COPD (chronic obstructive pulmonary disease) Diverticulosis Emphysema of lung Enlarged heart Gastroesophageal reflux disease Hypertension Osteoarthritis Oxygen dependent Prostate enlargement Sciatica, right side Seasonal allergies Secondary polycythemia Sleep apnea TMJ (temporomandibular joint disorder) Family History Mother Obstetric anesthesia problems Emphysema of lung Social History Smoking and tobacco status: Former smoker History of recent travel: No Surgical History History of bilateral cataract extraction History of coronary artery stent placement History of tonsillectomy Physical Exam <KERVIN GALINDO MD - Last Filed: 02/05/22 18:43> Physical Exam Appearance: Reports Obese Ill-appearing: Mild Pain Distress: None Eyes: Reports ABDIAS, EOMI and Conjunctiva clear ENT: Reports Oropharynx normal Neck: Supple Respiratory: Reports Airway patent and Wheezes Cardiovascular: Reports RRR GI/: Reports Soft and Nontender Musculoskeletal: Reports ROM intact and Edema Skin: Reports Warm and Dry Neurological: Reports Alert and Oriented Psychiatric: Reports Affect appropriate <MARCI PAYTON MD - Last Filed: 02/06/22 03:40> Radiology Interpretation Radiology Interpretation By: Radiologist Radiology Results: No acute changes (Emphysema and parenchymal scarring. No acute cardiopulmonary disease) Exam Interpreted: Portable CXR EKG Interpretation Time of EKG #1: 19:11 Rate: Normal Rhythm: Sinus Ectopy: None Velva: NL ST Segment: Normal Interpretation: normal EKG <MARCI PAYTON MD - Last Filed: 02/06/22 03:40> Case Discussed Physician Notified: Dr Gonzalez Time of Notification: 21:50 (Admit so long as they are DNR ) <MARCI PAYTON MD - Last Filed: 02/06/22 03:40> Critical Care Note Total Critical Care Time (mins): 0 Course <KERVIN GALINDO MD - Last Filed: 02/05/22 18:43> Course Hematology/Chemistry: 02/05/22 19:00 02/05/22 19:00 Orders, Labs, Meds: Lab Review 02/05/22 02/05/22 02/05/22 18:38 19:00 19:00 WBC 5.18 RBC 3.91 L Hgb 12.4 L Hct 36.7 L MCV 93.9 MCH 31.7 H MCHC 33.8 RDW Coeff of Bhaskar 13.3 Plt Count 188 Immature Gran % (Auto) 0.4 Neut % (Auto) 67.5 Lymph % (Auto) 22.6 [place] % (Auto) 9.3 Eos % (Auto) 0.2 Baso % (Auto) 0.0 Neut # (Auto) 3.5 Lymph # (Auto) 1.2 [place] # (Auto) 0.5 Eos # (Auto) 0.0 Baso # (Auto) 0.0 Immature Gran # (Auto) 0.0 Puncture Site [place] [employer] Excess 4.9 H O2 Saturation 92.1 L ABG pH 7.40 ABG pCO2 48.0 H ABG pO2 64.0 L ABG HCO3 29.1 H ABG Total CO2 31.2 H Albino Test + Hemoglobin 1.1 Oxyhemoglobin 92.0 L Carboxyhemoglobin 2.1 H Total Hemoglobin 12.7 O2 Delivery Device Nc Oxygen Liter Flow 4.00 Sodium 130.4 L Potassium 4.49 Chloride 93.9 L Carbon Dioxide 30.5 H Anion Gap 10.49 BUN 22.4 H Creatinine 0.98 Estimated GFR (MDRD) 73.00 BUN/Creatinine Ratio 22.85 Glucose 102.1 Lactic Acid Calcium 9.28 Total Bilirubin 0.69 AST 22.5 ALT 23.4 Alkaline Phosphatase 54.4 L Troponin I < 0.012 NT-Pro-B Natriuret Pep 327.000 H Total Protein 6.80 Albumin 4.12 Globulin 2.68 Albumin/Globulin Ratio 1.53 Influ A Molecular Assay Influ B Molecular Assay SARS CoV-2 RNA Rapid BALWINDER 02/05/22 02/05/22 02/05/22 19:00 19:05 19:05 WBC RBC Hgb Hct MCV MCH MCHC RDW Coeff of Bhaskar Plt Count Immature Gran % (Auto) Neut % (Auto) Lymph % (Auto) [place] % (Auto) Eos % (Auto) Baso % (Auto) Neut # (Auto) Lymph # (Auto) [place] # (Auto) Eos # (Auto) Baso # (Auto) Immature Gran # (Auto) Puncture Site Base Excess O2 Saturation ABG pH ABG pCO2 ABG pO2 ABG HCO3 ABG Total CO2 Albino Test Hemoglobin Oxyhemoglobin Carboxyhemoglobin Total Hemoglobin O2 Delivery Device Oxygen Liter Flow Sodium Potassium Chloride Carbon Dioxide Anion Gap BUN Creatinine Estimated GFR (MDRD) BUN/Creatinine Ratio Glucose Lactic Acid 0.75 Calcium Total Bilirubin AST ALT Alkaline Phosphatase Troponin I NT-Pro-B Natriuret Pep Total Protein Albumin Globulin Albumin/Globulin Ratio Influ A Molecular Assay Negative by naat Influ B Molecular Assay Negative by naat SARS CoV-2 RNA Rapid BALWINDER Negative Orders Category Date Time Status ABG DRAW REQUEST Stat CARDIO 02/05/22 18:37 Completed EKG-(ED ONLY) Stat CARDIO 02/05/22 18:37 Completed NEBULIZER TREATMENT Routine CARDIO 02/05/22 19:00 Active NEBULIZER TREATMENT Stat CARDIO 02/05/22 19:00 Completed OXYGEN [ED APPLY O2] .ONCE EMERGENCY 02/05/22 18:37 Active ABG COOX Stat LAB 02/05/22 18:38 Completed BLOOD CULTURE Stat LAB 02/05/22 19:00 Received CBC W/ AUTO DIFF Stat LAB 02/05/22 19:00 Completed CMP [COMPREHENSIVE METABOLIC PANEL] Stat LAB 02/05/22 19:00 Completed LACTIC ACID Stat LAB 02/05/22 19:00 Completed MOLECULAR FLU A & B [FLU A/B MOLECULAR] Stat LAB 02/05/22 19:05 Completed NT-PROBNP Stat LAB 02/05/22 19:00 Completed SARS COV-2 RNA RAPID BALWINDER Stat LAB 02/05/22 19:05 Completed TROPONIN I Stat LAB 02/05/22 19:00 Completed Albuterol Sulfate 0.083% Neb [Albuterol 0.083% Neb] MEDS 02/05/22 19:00 Discontinued 2.5 mg NEB ONCE ONE Ceftriaxone/D5w 1 gm Premix [Rocephin 1 gm/50 ml D5w] MEDS 02/05/22 21:06 Discontinued 1 gm in 50 ml IV ONCE Methylprednisolone Sod Succ/Pf [Solu-Medrol 125 mg] MEDS 02/05/22 19:06 Dis continued 125 mg .ROUTE .STK-MED ONE Methylprednisolone Sod Succ/Pf [Solu-Medrol 125 mg] MEDS 02/05/22 18:37 Discontinued 125 mg IVP ONCE STA CHEST, 1V AP ONLY Stat RADS 02/05/22 18:37 Completed Medications Generic Name Dose Route Start Last Admin Trade Name Freq PRN Reason Stop Dose Admin Acetaminophen 650 mg 02/05/22 21:51 Acetaminophen 325 Mg Tablet PO Q4H PRN Fever and Mild Pain Acetaminophen 650 mg 02/05/22 21:57 Acetaminophen 325 Mg Tablet PO Q4H PRN Headache Albuterol Sulfate 2.5 mg 02/05/22 22:00 02/06/22 01:15 Albuterol Sulfate 0.083% Vial.Neb NEB 2.5 mg RTQ4H BANDAR Administration Alprazolam 0.5 mg 02/05/22 22:40 02/05/22 23:04 Alprazolam 0.5 Mg Tablet PO 0.5 mg TID B[facility]AR Administration Amlodipine Besylate 5 mg 02/06/22 09:00 Amlodipine Besylate 5 Mg Tablet PO DAILY [facility] Aspirin 81 mg 02/05/22 22:43 02/05/22 23:18 Aspirin 81 Mg Tablet.Dr PO 81 mg BEDTIME B[facility] Administration Atropine Sulfate 0.5 mg 02/05/22 21:57 Atropine Sulfate Inj 1 Mg/10 Ml Disp.Syrin IVP ONCE PRN Symptomatic Bradycardia Azithromycin 250 mg 02/06/22 09:00 Azithromycin 250 Mg Tablet PO 02/09/22 08:59 DAILY [facility] Budesonide 0.5 mg 02/06/22 09:00 Budesonide 0.5 Mg/2 Ml Vial.Neb NEB BID [facility] Carvedilol 12.5 mg 02/05/22 22:39 02/05/22 23:06 Carvedilol 6.25 Mg Tablet PO 12.5 mg BID B[facility]AR Administration Clonidine 0.2 mg 02/06/22 09:00 Clonidine Hcl 0.1 Mg Tablet PO DAILY [facility] Clonidine 0.1 mg 02/05/22 22:41 02/05/22 23:05 Clonidine Hcl 0.1 Mg Tablet PO 0.1 mg BEDTIME PRN Administration Hypertension Enoxaparin Sodium 40 mg 02/06/22 09:00 Enoxaparin Sodium 40 Mg/0.4 Ml Syr SUBCUT DAILY [facility] Escitalopram Oxalate 10 mg 02/06/22 09:00 Escitalopram Oxalate 10 Mg Tablet PO DAILY [facility] Furosemide 40 mg 02/06/22 09:00 Furosemide 20 Mg Tablet PO DAILY [facility] Guaifenesin 1,200 mg 02/05/22 22:41 02/05/22 23:02 Guaifenesin 600 Mg Tablet.Er PO 1,200 mg BID BANDAR Administration Losartan Potassium 50 mg 02/05/22 22:39 02/05/22 23:04 Losartan Potassium 100 Mg Tablet PO 50 mg BID BANDAR Administration Methylprednisolone Sodium Succinate 125 mg 02/06/22 00:00 02/06/22 00:05 Methylprednisolone Sod Succ/Pf 125 Mg/2 Ml Vial IVP 125 mg Q6HR [facility]AR Administration Minoxidil 5 mg 02/05/22 22:40 02/05/22 23:05 Minoxidil 2.5 Mg Tablet PO 5 mg BID BANDAR Administration Nitroglycerin 0.4 mg 02/05/22 21:57 Nitroglycerin 0.4 Mg Tab.Subl SL Q5MIN X 3 DOSES PRN Chest Pain Non-Formulary Medication 2 puff 02/06/22 09:00 Tiotropium-Olodaterol [Stiolto Respimat] IH DAILY [facility] Ondansetron HCl 4 mg 02/05/22 21:51 Ondansetron Hcl/Pf 4 Mg/2 Ml Sdv IVP Q6H PRN Nausea / Vomiting Pantoprazole Sodium 40 mg 02/06/22 09:00 Pantoprazole Sodium 40 Mg Tablet. PO DAILY [facility] Polyethylene Glycol 17 gm 02/05/22 23:29 02/05/22 23:40 Polyethylene Glycol 17 Gm Powd.Pack PO 17 gm BID BANDAR Administration Sodium Chloride 1 syr 02/06/22 05:00 0.9% Sodium Chloride 10 Ml Disp.Syrin IVF Q8HR [facility] Tamsulosin HCl 0.8 mg 02/05/22 22:42 02/05/22 23:18 Tamsulosin Hcl 0.4 Mg Cap.Er.24h PO 0.8 mg BEDTIME BANDAR Administration Discontinued Medications Generic Name Dose Route Start Last Admin Trade Name Krystin PRN Reason Stop Dose Admin Albuterol Sulfate 2.5 mg 02/05/22 19:00 02/05/22 19:05 Albuterol Sulfate 0.083% Vial.Neb NEB 02/05/22 19:01 2.5 mg ONCE ONE Administration Alprazolam 0.5 mg 02/06/22 09:00 Alprazolam 0.5 Mg Tablet PO TID [facility] Aspirin 81 mg 02/06/22 21:00 Aspirin 81 Mg Tablet. PO BEDTIME [facility] Azithromycin 500 mg 02/05/22 21:51 02/05/22 23:02 Azithromycin 250 Mg Tablet PO 02/05/22 21:52 500 mg ONCE STA Administration Carvedilol 12.5 mg 02/06/22 09:00 Carvedilol 6.25 Mg Tablet PO BID [facility] Guaifenesin 1,200 mg 02/06/22 09:00 Guaifenesin 600 Mg Tablet.Er PO BID [facility] CEFTRIAXONE/D5W 1 GM PREMIX 1 gm in 50 mls @ 75 mls/hr 02/05/22 21:06 02/05/22 21:38 Rocephin 1 Gm/50 Ml D5w IV 02/05/22 21:45 75 mls/hr ONCE STA Administration Losartan Potassium 50 mg 02/06/22 09:00 Losartan Potassium 100 Mg Tablet PO BID [facility] Methylprednisolone Sodium Succinate 125 mg 02/05/22 18:37 02/05/22 19:17 Methylprednisolone Sod Succ/Pf 125 Mg/2 Ml Vial IVP 02/05/22 18:38 125 mg ONCE STA Administration Minoxidil 5 mg 02/06/22 09:00 Minoxidil 2.5 Mg Tablet PO BID [facility] Non-Formulary Medication 1 drop 02/05/22 21:59 Peg 400-Propylene Glycol [Systane (Propylene Glycol)] OP 5XD PRN Dry eyes Polyethylene Glycol 17 gm 02/06/22 09:00 Polyethylene Glycol 17 Gm Powd.Pack PO BID [facility] Tamsulosin HCl 0.8 mg 02/06/22 21:00 Tamsulosin Hcl 0.4 Mg Cap.Er.24h PO BEDTIME [facility] Vital Signs: Temp Pulse Resp BP Pulse Ox 02/05/22 18:23 97.9 F 78 22 H 151/74 H 94 L <MARCI PAYTON MD - Last Filed: 02/06/22 03:40> Course Orders, Labs, Meds: Lab Review 02/05/22 02/05/22 02/05/22 18:38 19:00 19:00 WBC 5.18 RBC 3.91 L Hgb 12.4 L Hct 36.7 L MCV 93.9 MCH 31.7 H MCHC 33.8 RDW Coeff of Bhaskar 13.3 Plt Count 188 Immature Gran % (Auto) 0.4 Neut % (Auto) 67.5 Lymph % (Auto) 22.6 [place] % (Auto) 9.3 Eos % (Auto) 0.2 Baso % (Auto) 0.0 Neut # (Auto) 3.5 Lymph # (Auto) 1.2 [place] # (Auto) 0.5 Eos # (Auto) 0.0 Baso # (Auto) 0.0 Immature Gran # (Auto) 0.0 Puncture Site [place] [employer] Excess 4.9 H O2 Saturation 92.1 L ABG pH 7.40 ABG pCO2 48.0 H ABG pO2 64.0 L ABG HCO3 29.1 H ABG Total CO2 31.2 H Albino Test + Hemoglobin 1.1 Oxyhemoglobin 92.0 L Carboxyhemoglobin 2.1 H Total Hemoglobin 12.7 O2 Delivery Device Nc Oxygen Liter Flow 4.00 Sodium 130.4 L Potassium 4.49 Chloride 93.9 L Carbon Dioxide 30.5 H Anion Gap 10.49 BUN 22.4 H Creatinine 0.98 Estimated GFR (MDRD) 73.00 BUN/Creatinine Ratio 22.85 Glucose 102.1 Lactic Acid Calcium 9.28 Total Bilirubin 0.69 AST 22.5 ALT 23.4 Alkaline Phosphatase 54.4 L Troponin I < 0.012 NT-Pro-B Natriuret Pep 327.000 H Total Protein 6.80 Albumin 4.12 Globulin 2.68 Albumin/Globulin Ratio 1.53 Influ A Molecular Assay Influ B Molecular Assay SARS CoV-2 RNA Rapid BALWINDER 02/05/22 02/05/22 02/05/22 19:00 19:05 19:05 WBC RBC Hgb Hct MCV MCH MCHC RDW Coeff of Bhaskar Plt Count Immature Gran % (Auto) Neut % (Auto) Lymph % (Auto) [place] % (Auto) Eos % (Auto) Baso % (Auto) Neut # (Auto) Lymph # (Auto) [place] # (Auto) Eos # (Auto) Baso # (Auto) Immature Gran # (Auto) Puncture Site Base Excess O2 Saturation ABG pH ABG pCO2 ABG pO2 ABG HCO3 ABG Total CO2 [place]ino Test Hemoglobin Oxyhemoglobin Carboxyhemoglobin Total Hemoglobin O2 Delivery Device Oxygen Liter Flow Sodium Potassium Chloride Carbon Dioxide Anion Gap BUN Creatinine Estimated GFR (MDRD) BUN/Creatinine Ratio Glucose Lactic Acid 0.75 Calcium Total Bilirubin AST ALT Alkaline Phosphatase Troponin I NT-Pro-B Natriuret Pep Total Protein Albumin Globulin Albumin/Globulin Ratio Influ A Molecular Assay Negative by naat Influ B Molecular Assay Negative by naat SARS CoV-2 RNA Rapid BALWINDER Negative Orders Category Date Time Status ABG DRAW REQUEST Stat CARDIO 02/05/22 18:37 Completed EKG-(ED ONLY) Stat CARDIO 02/05/22 18:37 Completed NEBULIZER TREATMENT Routine CARDIO 02/05/22 19:00 Active NEBULIZER TREATMENT Stat CARDIO 02/05/22 19:00 Completed OXYGEN [ED APPLY O2] .ONCE EMERGENCY 02/05/22 18:37 Active ABG COOX Stat LAB 02/05/22 18:38 Completed BLOOD CULTURE Stat LAB 02/05/22 19:00 Received CBC W/ AUTO DIFF Stat LAB 02/05/22 19:00 Completed CMP [COMPREHENSIVE METABOLIC PANEL] Stat LAB 02/05/22 19:00 Completed LACTIC ACID Stat LAB 02/05/22 19:00 Completed MOLECULAR FLU A & B [FLU A/B MOLECULAR] Stat LAB 02/05/22 19:05 Completed NT-PROBNP Stat LAB 02/05/22 19:00 Completed SARS COV-2 RNA RAPID BALWINDER Stat LAB 02/05/22 19:05 Completed TROPONIN I Stat LAB 02/05/22 19:00 Completed Albuterol Sulfate 0.083% Neb [Albuterol 0.083% Neb] MEDS 02/05/22 19:00 Discontinued 2.5 mg NEB ONCE ONE Ceftriaxone/D5w 1 gm Premix [Rocephin 1 gm/50 ml D5w] MEDS 02/05/22 21:06 Discontinued 1 gm in 50 ml IV ONCE Methylprednisolone Sod Succ/Pf [Solu-Medrol 125 mg] MEDS 02/05/22 19:06 Discontinued 125 mg .ROUTE .STK-MED ONE Methylprednisolone Sod Succ/Pf [Solu-Medrol 125 mg] MEDS 02/05/22 18:37 Discontinued 125 mg IVP ONCE STA CHEST, 1V AP ONLY Stat RADS 02/05/22 18:37 Completed Medications Generic Name Dose Route Start Last Admin Trade Name Freq PRN Reason Stop Dose Admin Acetaminophen 650 mg 02/05/22 21:51 Acetaminophen 325 Mg Tablet PO Q4H PRN Fever and Mild Pain Acetaminophen 650 mg 02/05/22 21:57 Acetaminophen 325 Mg Tablet PO Q4H PRN Headache Albuterol Sulfate 2.5 mg 02/05/22 22:00 02/06/22 01:15 Albuterol Sulfate 0.083% Vial.Neb NEB 2.5 mg RTQ4H BANDAR Administration Alprazolam 0.5 mg 02/05/22 22:40 02/05/22 23:04 Alprazolam 0.5 Mg Tablet PO 0.5 mg TID BANDAR Administration Amlodipine Besylate 5 mg 02/06/22 09:00 Amlodipine Besylate 5 Mg Tablet PO DAILY [facility] Aspirin 81 mg 02/05/22 22:43 02/05/22 23:18 Aspirin 81 Mg Tablet.Dr PO 81 mg BEDTIME [facility]AR Administration Atropine Sulfate 0.5 mg 02/05/22 21:57 Atropine Sulfate Inj 1 Mg/10 Ml Disp.Syrin IVP ONCE PRN Symptomatic Bradycardia Azithromycin 250 mg 02/06/22 09:00 Azithromycin 250 Mg Tablet PO 02/09/22 08:59 DAILY [facility] Budesonide 0.5 mg 02/06/22 09:00 Budesonide 0.5 Mg/2 Ml Vial.Neb NEB BID [facility] Carvedilol 12.5 mg 02/05/22 22:39 02/05/22 23:06 Carvedilol 6.25 Mg Tablet PO 12.5 mg BID [facility] Administration Clonidine 0.2 mg 02/06/22 09:00 Clonidine Hcl 0.1 Mg Tablet PO DAILY [facility] Clonidine 0.1 mg 02/05/22 22:41 02/05/22 23:05 Clonidine Hcl 0.1 Mg Tablet PO 0.1 mg BEDTIME PRN Administration Hypertension Enoxaparin Sodium 40 mg 02/06/22 09:00 Enoxaparin Sodium 40 Mg/0.4 Ml Syr SUBCUT DAILY [facility] Escitalopram Oxalate 10 mg 02/06/22 09:00 Escitalopram Oxalate 10 Mg Tablet PO DAILY [facility] Furosemide 40 mg 02/06/22 09:00 Furosemide 20 Mg Tablet PO DAILY [facility] Guaifenesin 1,200 mg 02/05/22 22:41 02/05/22 23:02 Guaifenesin 600 Mg Tablet.Er PO 1,200 mg BID [facility] Administration Losartan Potassium 50 mg 02/05/22 22:39 02/05/22 23:04 Losartan Potassium 100 Mg Tablet PO 50 mg BID [facility] Administration Methylprednisolone Sodium Succinate 125 mg 02/06/22 00:00 02/06/22 00:05 Methylprednisolone Sod Succ/Pf 125 Mg/2 Ml Vial IVP 125 mg Q6HR [facility] Administration Minoxidil 5 mg 02/05/22 22:40 02/05/22 23:05 Minoxidil 2.5 Mg Tablet PO 5 mg BID [facility] Administration Nitroglycerin 0.4 mg 02/05/22 21:57 Nitroglycerin 0.4 Mg Tab.Subl SL Q5MIN X 3 DOSES PRN Chest Pain Non-Formulary Medication 2 puff 02/06/22 09:00 Tiotropium-Olodaterol [Stiolto Respimat] IH DAILY [facility] Ondansetron HCl 4 mg 02/05/22 21:51 Ondansetron Hcl/Pf 4 Mg/2 Ml Sdv IVP Q6H PRN Nausea / Vomiting Pantoprazole Sodium 40 mg 02/06/22 09:00 Pantoprazole Sodium 40 Mg Tablet. PO DAILY [facility] Polyethylene Glycol 17 gm 02/05/22 23:29 02/05/22 23:40 Polyethylene Glycol 17 Gm Powd.Pack PO 17 gm BID [facility]ANDAR Administration Sodium Chloride 1 syr 02/06/22 05:00 0.9% Sodium Chloride 10 Ml Disp.Syrin IVF Q8HR [facility] Tamsulosin HCl 0.8 mg 02/05/22 22:42 02/05/22 23:18 Tamsulosin Hcl 0.4 Mg Cap.Er.24h PO 0.8 mg BEDTIME [facility]ANDAR Administration Discontinued Medications Generic Name Dose Route Start Last Admin Trade Name Freq PRN Reason Stop Dose Admin Albuterol Sulfate 2.5 mg 02/05/22 19:00 02/05/22 19:05 Albuterol Sulfate 0.083% Vial.Neb NEB 02/05/22 19:01 2.5 mg ONCE ONE Administration Alprazolam 0.5 mg 02/06/22 09:00 Alprazolam 0.5 Mg Tablet PO TID [facility] Aspirin 81 mg 02/06/22 21:00 Aspirin 81 Mg Tablet. PO BEDTIME [facility] Azithromycin 500 mg 02/05/22 21:51 02/05/22 23:02 Azithromycin 250 Mg Tablet PO 02/05/22 21:52 500 mg ONCE STA Administration Carvedilol 12.5 mg 02/06/22 09:00 Carvedilol 6.25 Mg Tablet PO BID [facility] Guaifenesin 1,200 mg 02/06/22 09:00 Guaifenesin 600 Mg Tablet.Er PO BID [facility] CEFTRIAXONE/D5W 1 GM PREMIX 1 gm in 50 mls @ 75 mls/hr 02/05/22 21:06 02/05/22 21:38 Rocephin 1 Gm/50 Ml D5w IV 02/05/22 21:45 75 mls/hr ONCE STA Administration Losartan Potassium 50 mg 02/06/22 09:00 Losartan Potassium 100 Mg Tablet PO BID [facility] Methylprednisolone Sodium Succinate 125 mg 02/05/22 18:37 02/05/22 19:17 Methylprednisolone Sod Succ/Pf 125 Mg/2 Ml Vial IVP 02/05/22 18:38 125 mg ONCE STA Administration Minoxidil 5 mg 02/06/22 09:00 Minoxidil 2.5 Mg Tablet PO BID [facility] Non-Formulary Medication 1 drop 02/05/22 21:59 Peg 400-Propylene Glycol [Systane (Propylene Glycol)] OP 5XD PRN Dry eyes Polyethylene Glycol 17 gm 02/06/22 09:00 Polyethylene Glycol 17 Gm Powd.Pack PO BID [facility] Tamsulosin HCl 0.8 mg 02/06/22 21:00 Tamsulosin Hcl 0.4 Mg Cap.Er.24h PO BEDTIME [facility] Vital Signs: Temp Pulse Resp BP Pulse Ox 02/05/22 18:23 97.9 F 78 22 H 151/74 H 94 L Discharge Plan Discharge Patient Disposition: ADMITTED INPATIENT Discharge Problem: COPD with acute exacerbation Did you review [place] ELL TEACHER?: Not Applicable ED Provider: KERVIN GALINDO Condition: Fair <KERVIN GALINDO MD - Last Filed: 02/05/22 18:43> Physician Progress Note: []care to Dr Payton at 19:00
[2022-02-05] MEDS ORDERED: ALBUTEROL 0.083% NEB NEB ONE (19:00)
[2022-02-05 19:06] LABS: EOSINOPHILS % (AUTO) 0.2 % (0.0-7.0); HEMATOCRIT 36.7 % (42.0-52.0); HEMOGLOBIN 12.4 g/dl (14.0-18.0); IMMATURE GRANULOCYTE % (AUTO) 0.4 % (0.0-5.0); LYMPHOCYTES # (AUTO) 1.2 K/uL (0.60-3.4); LYMPHOCYTES % (AUTO) 22.6 (10.0-50.0); MEAN CORPUSCULAR HEMOGLOBIN 31.7 pg (27.0-31.0); MEAN CORPUSCULAR HGB CONC 33.8 (31.8-35.4); MEAN CORPUSCULAR VOLUME 93.9 fl (80.0-94.0); MONOCYTES # (AUTO) 0.5 K/uL (0.4-2.0); MONOCYTES % (AUTO) 9.3 (0-10); NEUTROPHILS # (AUTO) 3.5 K/ul (2.0-6.9); NEUTROPHILS % (AUTO) 67.5 % (42.2-75.2); PLATELET COUNT 188 10^3/uL (140-440); RDW COEFFICIENT OF VARIATION 13.3 % (11.6-14.8); RED BLOOD COUNT 3.91 10^6/ul (4.70-6.10); WHITE BLOOD COUNT 5.18 K/ul (4.2-10.2)
[2022-02-05] MEDS ORDERED: SOLU-MEDROL 125 MG ONE (19:06)
[2022-02-05 19:19] LABS: ALANINE AMINOTRANSFERASE 23.4 U/L (0-50); ALBUMIN 4.12 g/dL (3.5-5.0); ALKALINE PHOSPHATASE 54.4 U/L (56-119); ASPARTATE AMINO TRANSFERASE 22.5 U/L (17-59); BILIRUBIN,TOTAL 0.69 mg/dL (0.2-1.3); BLOOD UREA NITROGEN 22.4 mg/dL (9-20); CALCIUM 9.28 mg/dL (8.4-10.2); CARBON DIOXIDE 30.5 mmol/L (22-30.0); CHLORIDE 93.9 mmol/L (98-107); CREATININE 0.98 mg/dL (0.60-1.10); GLUCOSE 102.1 mg/dL (74-106); POTASSIUM 4.49 mmol/L (3.5-5.1); SODIUM 130.4 mmol/L (134.5-145)
[2022-02-05 19:27] LABS: MOLECULAR FLU A NEGATIVE BY NAAT (NEGATIVE); MOLECULAR FLU B NEGATIVE BY NAAT (NEGATIVE)
[2022-02-05 19:32] LABS: TROPONIN I < 0.012 ng/ml (0.0000-0.120)
[2022-02-05 19:47] LABS: SARS COV-2 RNA RAPID NAAT NEGATIVE (NEGATIVE)
[2022-02-05 20:33] LABS: BEecf 4.9 (-2.0-3.0)
[2022-02-05 20:34] LABS: COHb 2.1 (0.5-1.5); HCO3 29.1 (21-28); MetHb 1.1 (0-1.5); TCO2 31.2 (19-24); sO2 92.1 % (94-98)
[2022-02-05 20:35] LABS: tHb 12.7 g/dl (11.7-17.4)
--- NOTE | 2022-02-05 20:51 | DI ---
Exam: Chest one-view History: Cough FINDINGS: Compared with 01/08/2022. Normal cardiomediastinal contours. Persistent bibasilar parenc hymal scarring and emphysematous change. No superimposed infiltrative opacities. Granulomatous lymp h node calcifications. No acute chest wall abnormality. Impression: Emphysema and parenchymal scarring. No acute cardiopulmonary disease
[2022-02-05] MEDS ORDERED: ROCEPHIN 1 GM/50 ML D5W 1 GM/50 ML BAG IV STA (21:06)
[2022-02-05] MEDS ORDERED: TYLENOL PO PRN ×2 (21:51→21:57)
[2022-02-05] MEDS ORDERED: ZOFRAN 4 MG/2 ML IVP PRN (21:51)
[2022-02-05] MEDS ORDERED: ZITHROMAX PO STA (21:51)
[2022-02-05] MEDS ORDERED: ATROPINE SULFATE PFS IVP PRN (21:57)
[2022-02-05] MEDS ORDERED: NITROSTAT SL PRN (21:57)
[2022-02-05] MEDS: ALBUTEROL 0.083% NEB NEB SCH (22:00)
[2022-02-05 22:16] VITALS: BMI 29.0
[2022-02-05] MEDS ORDERED: ARTIFICIAL TEARS DROPS OP PRN (22:29)
[2022-02-05] MEDS ORDERED: CATAPRES PO PRN (22:41)
[2022-02-05] MEDS: MUCINEX PO SCH (23:02)
[2022-02-05] MEDS: XANAX PO SCH (23:04)
[2022-02-05] MEDS: COZAAR PO SCH (23:04)
[2022-02-05] MEDS: MINOXIDIL PO SCH (23:05)
[2022-02-05] MEDS: COREG PO SCH (23:06)
[2022-02-05] MEDS: ASPIRIN EC PO SCH (23:18)
[2022-02-05] MEDS: FLOMAX PO SCH (23:18)
[2022-02-05] MEDS: MIRALAX PO SCH (23:40)
[2022-02-05 23:53] LABS: BILIRUBIN,URINE Negative (NEGATIVE); CLARITY,URINE Clear (CLEAR); COLOR,URINE Yellow (YELLOW); GLUCOSE, URINE (UA) Negative (NEGATIVE); KETONES,URINE Negative (NEGATIVE); LEUKOCYTE ESTERASE ,URINE Negative (NEGATIVE); NITRITE,URINE Negative (NEGATIVE); PROTEIN,URINE Trace (NEGATIVE); URINE, BLOOD Trace-lysed (NEGATIVE); UROBILINOGEN,URINE 0.2 (0.2)
[2022-02-06] LABS: SQUAMOUS EPITHELIAL CELL,UR 0-2 (0-5); URINE RBC, MICROSCOPIC 0-2 (0-2)
[2022-02-06] MEDS: SOLU-MEDROL 125 MG IVP SCH ×4 (00:05→22:12)
[2022-02-06] MEDS: ALBUTEROL 0.083% NEB NEB SCH ×6 (01:15→21:00)
[2022-02-06 05:31] LABS: HEMATOCRIT 38.9 % (42.0-52.0); HEMOGLOBIN 12.9 g/dl (14.0-18.0); IMMATURE GRANULOCYTE % (AUTO) 0.6 % (0.0-5.0); LYMPHOCYTES # (AUTO) 0.5 K/uL (0.60-3.4); LYMPHOCYTES % (AUTO) 13.9 (10.0-50.0); MEAN CORPUSCULAR HGB CONC 33.2 (31.8-35.4); MEAN CORPUSCULAR VOLUME 93.5 fl (80.0-94.0); MONOCYTES % (AUTO) 0.8 (0-10); NEUTROPHILS % (AUTO) 84.7 % (42.2-75.2); PLATELET COUNT 200 10^3/uL (140-440); RDW COEFFICIENT OF VARIATION 13.2 % (11.6-14.8); RED BLOOD COUNT 4.16 10^6/ul (4.70-6.10); WHITE BLOOD COUNT 3.53 K/ul (4.2-10.2)
[2022-02-06 05:43] LABS: ALANINE AMINOTRANSFERASE 25.1 U/L (0-50); ALBUMIN 4.38 g/dL (3.5-5.0); ALKALINE PHOSPHATASE 50.1 U/L (56-119); ASPARTATE AMINO TRANSFERASE 27.7 U/L (17-59); BILIRUBIN,TOTAL 0.62 mg/dL (0.2-1.3); BLOOD UREA NITROGEN 23.8 mg/dL (9-20); CALCIUM 9.25 mg/dL (8.4-10.2); CARBON DIOXIDE 30.2 mmol/L (22-30.0); CREATININE 1.02 mg/dL (0.60-1.10); GLUCOSE 135.5 mg/dL (74-106); POTASSIUM 4.38 mmol/L (3.5-5.1); SODIUM 130.1 mmol/L (134.5-145); TOTAL PROTEIN 7.17 g/dL (6.3-8.2)
[2022-02-06] MEDS ORDERED: NON-FORMULARY MEDICATION (Tiotropium-Olodaterol [Stiolto Respimat] 2.5-2.5 mcg/actuation m IH SCH (09:00)
[2022-02-06] MEDS ORDERED: MIRALAX PO SCH (09:00)
[2022-02-06] MEDS ORDERED: MUCINEX PO SCH (09:00)
[2022-02-06] MEDS ORDERED: COZAAR PO SCH (09:00)
[2022-02-06] MEDS ORDERED: PULMICORT 0.5 MG/2 ML NEB SCH (09:00)
[2022-02-06] MEDS ORDERED: CATAPRES PO SCH (09:00)
[2022-02-06] MEDS ORDERED: COREG PO SCH (09:00)
[2022-02-06] MEDS ORDERED: XANAX PO SCH (09:00)
[2022-02-06] MEDS ORDERED: MINOXIDIL PO SCH (09:00)
--- NOTE | 2022-02-06 09:24 | PCM.PROG ---
Attending Provider: ATTENDING PROVIDER: Dr. HAILEY SCHULTE This patient is seen with Debbie Garcia, Nurse Practitioner. DATE OF SERVICE: 02/06/22 SUBJECTIVE: This 81 year old /WHITE M was hospitalized 02/05/22. Shortness of breath improved this morning. Still very short of breath with minimal exertion and talking. O2 saturation is 93% on 4 liters. Having issues with BIPAP at night with masking fitting. No fever. REVIEW OF SYSTEMS: CONSTITUTIONAL: No night sweats. No fatigue, malaise, lethargy. No fever or chills. Weakness. HEENT: Eyes: No visual changes. No eye pain. No eye discharge. ENT: No runny nose. No epistaxis. No sinus pain. No odynophagia. No congestion. RESPIRATORY: Cough, no congestion. No hemoptysis. Shortness of breath. Wheezing. CARDIOVASCULAR: No angina symptoms. No CHF symptoms. No atypical chest pain for CAD. No palpitations. No orthopnea.. GASTROINTESTINAL: No abdominal pain. No nausea or vomiting. No diarrhea or constipation. No hematemesis. No hematochezia. GENITOURINARY: No urgency. No frequency. No dysuria. No hematuria. No obstru ctive symptoms. No discharge. No pain. No significant abnormal bleeding. MUSCULOSKELETAL: No musculoskeletal pain; no joint swelling. NEUROLOGICAL: Awake, alert, oriented to time, place and person. No headache. No neck pain. No syncope. No seizures. No dizziness. PSYCHIATRIC: Not anxious. No depression. No suicidal thoughts. No homicidal thoughts. SKIN: No rash. No lesions. No wounds. ENDOCRINE: No unexplained weight loss. No weight gain. HEMATOLOGIC/LYMPHATIC: No anemia. No purpura. No petechiae. No prolonged or excessive bleeding. No palpable lymph nodes. PHYSICAL EXAMINATION: GENERAL: The patient is awake, alert and oriented, lying in bed in no distress. VITAL SIGNS: Temperature 97.4 F, Pulse 83, Respiratory Rate 22, BP 169/85, Pulse Ox 93% HEENT: Head normocephalic, atraumatic. Eyes: Extraocular muscles are intact. Pupils are equal, round and reactive to light and accommodation. Ears: No lesions. Nose appeared normal. Throat: No exudate or erythema. NECK: Supple. No JVD, no carotid bruit. No lymphadenopathy or thyromegaly. LUNGS: Diminished breath sounds. Clear to auscultation. Percussion note normal. Chest symmetrical. HEART: S1, S2, no S3. No murmurs. No cyanosis or clubbing. No ascites. Pulses: Dorsalis pedis and posterior tibial pulses +1 to +2 both sides. ABDOMEN: Soft. Non-tender. Bowel sounds active. No CVA tenderness. No mass felt. EXTREMITIES: No edema. Full range of motion of all extremities, equal. NEUROLOGIC: No focal deficit. Cranial nerves II through XII are grossly intact. No headache. No double vision. SKIN: Not dry. Intact. Turgor-normal. LYMPHATIC: No palpable lymph nodes/no lymphedema. MUSCULOSKELETAL: Normal joints with no swelling. Muscle tone is normal. LAB REVIEW: 02/06/22 05:21 02/06/22 05:21 02/06/22 05:21: Sodium 130.1 L, Potassium 4.38, Chloride 93.0 L, Carbon Dioxide 30.2 H, Anion Gap 11.28, BUN 23.8 H, Creatinine 1.02, Estimated GFR (MDRD) 70.00, BUN/Creatinine Ratio 23.33, Glucose 135.5 H, Calcium 9.25, Total Bilirubin 0.62, AST 27.7, ALT 25.1, Alkaline Phosphatase 50.1 L, Total Protein 7.17, Albumin 4.38, Globulin 2.79, Albumin/Globulin Ratio 1.56 02/06/22 05:21: WBC 3.53 L, RBC 4.16 L, Hgb 12.9 L, Hct 38.9 L, MCV 93.5, MCH 31.0, MCHC 33.2, RDW Coeff of Bhaskar 13.2, Plt Count 200, Immature Gran % (Auto) 0.6, Neut % (Auto) 84.7 H, Lymph % (Auto) 13.9, [place] % (Auto) 0.8, Eos % (Auto) 0.0, Baso % (Auto) 0.0, Neut # (Auto) 3.0, Lymph # (Auto) 0.5 L, [place] # (Auto) 0.0 L, Eos # (Auto) 0.0, Baso # (Auto) 0.0, Immature Gran # (Auto) 0.0 02/05/22 23:48: Urine Color Yellow, Urine Clarity Clear, Urine pH 6.0, Ur Specific [place] 1.020, Urine Protein Trace H, Urine Glucose (UA) Negative, Urine Ketones Negative, Urine Blood Trace-lysed, Urine Nitrite Negative, Urine Bilirubin Negative, Urine Urobilinogen 0.2, Ur Leukocyte Esterase Negative, Urine Microscopic RBC 0-2, Ur Squamous Epith Cells 0-2 02/05/22 19:05: Influ A Molecular Assay Negative by naat, Influ B Molecular Assay Negative by naat 02/05/22 19:05: SARS CoV-2 RNA Rapid BALWINDER Negative 02/05/22 19:00: Lactic Acid 0.75 02/05/22 19:00: Sodium 130.4 L, Potassium 4.49, Chloride 93.9 L, Carbon Dioxide 30.5 H, Anion Gap 10.49, BUN 22.4 H, Creatinine 0.98, Estimated GFR (MDRD) 7 3.00, BUN/Creatinine Ratio 22.85, Glucose 102.1, Calcium 9.28, Total Bilirubin 0.69, AST 22.5, ALT 23.4, Alkaline Phosphatase 54.4 L, Troponin I < 0.012, NT-Pro-B Natriuret Pep 327.000 H, Total Protein 6.80, Albumin 4.12, Globulin 2.68, Albumin/Globulin Ratio 1.53 02/05/22 19:00: WBC 5.18, RBC 3.91 L, Hgb 12.4 L, Hct 36.7 L, MCV 93.9, MCH 31.7 H, MCHC 33.8, RDW Coeff of Bhaskar 13.3, Plt Count 188, Immature Gran % (Auto) 0.4, Neut % (Auto) 67.5, Lymph % (Auto) 22.6, [place] % (Auto) 9.3, Eos % (Auto) 0.2, Baso % (Auto) 0.0, Neut # (Auto) 3.5, Lymph # (Auto) 1.2, [place] # (Auto) 0.5, Eos # (Auto) 0.0, Baso # (Auto) 0.0, Immature Gran # (Auto) 0.0 02/05/22 18:38: Puncture Site Lrad, Base Excess 4.9 H, O2 Saturation 92.1 L, ABG pH 7.40, ABG pCO2 48.0 H, ABG pO2 64.0 L, ABG HCO3 29.1 H, ABG Total CO2 31.2 H, Albino Test +, Hemoglobin 1.1, Oxyhemoglobin 92.0 L, Carboxyhemoglobin 2.1 H, Total Hemoglobin 12.7, O2 Delivery Device Nc, Oxygen Liter Flow 4.00 ASSESSMENT: Please see below. 1. Acute respiratory failure 2. Acute COPD exacerbation 3. Hypertension 4. Anxiety 5. cO2 retention PLAN: 1. Sputum culture 2. Rocephin 1 gram IV daily 3. Decrease Solu-Medrol Q 8 hours 4. Rapid RSV Plan and coordination of the patient's care discussed in the presence of Mold Builder and nurse. SCRIBED BY: KAMI GALEANA Physical Scientist scribed while in presence of service performed by Dr. Schulte/Debbie Garcia APRN on 02/06/22 ([id number])
[2022-02-06] MEDS: MUCINEX PO SCH ×2 (09:58→20:30)
[2022-02-06] MEDS: PROTONIX PO SCH (09:58)
[2022-02-06] MEDS: XANAX PO SCH ×3 (09:58→20:28)
[2022-02-06] MEDS: MINOXIDIL PO SCH ×2 (09:58→20:29)
[2022-02-06] MEDS: LEXAPRO PO SCH (09:59)
[2022-02-06] MEDS: LASIX TAB PO SCH (09:59)
[2022-02-06] MEDS: COREG PO SCH ×2 (09:59→20:29)
[2022-02-06] MEDS: COZAAR PO SCH ×2 (09:59→20:29)
[2022-02-06] MEDS: ANORO ELLIPTA 62.5-25 MCG INH IH SCH (10:00)
[2022-02-06] MEDS: NORVASC PO SCH (10:00)
[2022-02-06] MEDS: ZITHROMAX PO SCH (10:00)
[2022-02-06] MEDS: LOVENOX SUBCUT SCH (10:00)
[2022-02-06] MEDS: MIRALAX PO SCH ×2 (10:00→20:41)
--- NOTE | 2022-02-06 11:58 | RS.SLPCNOT ---
Speech Case Note Date of Note: 02/06/22 Title: Speech Consult Note: GAMING HOST and RN discussed ST consult. No concerns were identified from nurse. GAMING HOST suggested to speak with client concerning breath support and cognitive function. GAMING HOST entered pt's room. Pt was resting, but cooperative with GAMING HOST's questions. GAMING HOST discussed home routine with oxygen support and pt verbalized use of multiple oxygen support devices. He explained when to use them, the patient could verbalize safe and unsafe O2 levels. When asked, the patient could verbalize strategies to increase O2 sats. When asked about his current admission he verbalized Co2 retention and need for steroids. The patient discussed home safety including, planning where to walk, placing sitting stations around his house to rest and 'catch breath'. The patient verbalized no need for ST at this time, but did have concerns regarding his current face mask for sleep. He verbalized concern with skin irritation that was potentially from his roll cleaner used on the 'pillow' part of the mask. At this time, the patient would like more information on how to clean his BiPap mask; the GAMING HOST informed the RN to ask case management or the respiratory therapist and follow-up with the patient. No evaluation completed. Thank you for this consult.
[2022-02-06 12:26] LABS: RSV MOLECULAR NEGATIVE BY NAAT (NEGATIVE)
[2022-02-06] MEDS: PULMICORT 0.5 MG/2 ML NEB SCH (16:55)
[2022-02-06] MEDS: ROCEPHIN 1 GM/50 ML D5W 1 GM/50 ML BAG IV SCH (20:26)
[2022-02-06] MEDS: ASTELIN 0.1% NAS SCH (20:27)
[2022-02-06] MEDS: ASPIRIN EC PO SCH (20:28)
[2022-02-06] MEDS: CATAPRES PO SCH (20:28)
[2022-02-06] MEDS: FLOMAX PO SCH (20:29)
[2022-02-06] MEDS ORDERED: FLOMAX PO SCH (21:00)
[2022-02-06] MEDS ORDERED: ASPIRIN EC PO SCH (21:00)
[2022-02-07] MEDS: ALBUTEROL 0.083% NEB NEB SCH ×6 (01:00→21:04)
[2022-02-07] MEDS: PULMICORT 0.5 MG/2 ML NEB SCH ×2 (04:50→17:35)
[2022-02-07 05:19] LABS: HEMATOCRIT 34.6 % (42.0-52.0); HEMOGLOBIN 11.7 g/dl (14.0-18.0); IMMATURE GRANULOCYTE % (AUTO) 0.5 % (0.0-5.0); LYMPHOCYTES # (AUTO) 0.8 K/uL (0.60-3.4); LYMPHOCYTES % (AUTO) 17.8 (10.0-50.0); MEAN CORPUSCULAR HEMOGLOBIN 31.2 pg (27.0-31.0); MEAN CORPUSCULAR HGB CONC 33.8 (31.8-35.4); MEAN CORPUSCULAR VOLUME 92.3 fl (80.0-94.0); MONOCYTES # (AUTO) 0.2 K/uL (0.4-2.0); MONOCYTES % (AUTO) 4.8 (0-10); NEUTROPHILS # (AUTO) 3.4 K/ul (2.0-6.9); NEUTROPHILS % (AUTO) 76.9 % (42.2-75.2); PLATELET COUNT 187 10^3/uL (140-440); RDW COEFFICIENT OF VARIATION 13.3 % (11.6-14.8); RED BLOOD COUNT 3.75 10^6/ul (4.70-6.10); WHITE BLOOD COUNT 4.39 K/ul (4.2-10.2)
[2022-02-07] MEDS: SOLU-MEDROL 125 MG IVP SCH ×3 (05:24→21:39)
[2022-02-07 05:32] LABS: ALANINE AMINOTRANSFERASE 18.5 U/L (0-50); ALBUMIN 3.75 g/dL (3.5-5.0); ALKALINE PHOSPHATASE 40.3 U/L (56-119); ASPARTATE AMINO TRANSFERASE 26.5 U/L (17-59); BILIRUBIN,TOTAL 0.46 mg/dL (0.2-1.3); BLOOD UREA NITROGEN 29.3 mg/dL (9-20); CALCIUM 8.8 mg/dL (8.4-10.2); CARBON DIOXIDE 28.9 mmol/L (22-30.0); CHLORIDE 94.2 mmol/L (98-107); CREATININE 0.83 mg/dL (0.60-1.10); GLUCOSE 125.1 mg/dL (74-106); POTASSIUM 4.42 mmol/L (3.5-5.1); SODIUM 130.1 mmol/L (134.5-145); TOTAL PROTEIN 6.33 g/dL (6.3-8.2)
[2022-02-07] MEDS: MIRALAX PO SCH ×2 (08:31→20:28)
[2022-02-07] MEDS: MUCINEX PO SCH ×2 (08:32→20:29)
[2022-02-07] MEDS: LEXAPRO PO SCH (08:32)
[2022-02-07] MEDS: NORVASC PO SCH (08:32)
[2022-02-07] MEDS: COREG PO SCH ×2 (08:34→20:29)
[2022-02-07] MEDS: PROTONIX PO SCH (08:34)
[2022-02-07] MEDS: LASIX TAB PO SCH (08:34)
[2022-02-07] MEDS: XANAX PO SCH ×3 (08:35→20:29)
[2022-02-07] MEDS: COZAAR PO SCH ×2 (08:35→20:30)
[2022-02-07] MEDS: ZITHROMAX PO SCH (08:35)
[2022-02-07] MEDS: MINOXIDIL PO SCH ×2 (08:36→20:32)
[2022-02-07] MEDS: ANORO ELLIPTA 62.5-25 MCG INH IH SCH (08:39)
[2022-02-07] MEDS: ASTELIN 0.1% NAS SCH ×2 (08:40→20:39)
[2022-02-07] MEDS: LOVENOX SUBCUT SCH (08:40)
[2022-02-07] MEDS ORDERED: DIFLUCAN PO ONE (10:23)
[2022-02-07] MEDS ORDERED: TORADOL IVP ONE (10:23)
[2022-02-07] MEDS: NYSTATIN ORAL SUSP PO SCH ×3 (11:08→20:40)
[2022-02-07] MEDS: CATAPRES PO SCH ×2 (13:55→20:30)
[2022-02-07] MEDS: ASPIRIN EC PO SCH (20:29)
[2022-02-07] MEDS: FLOMAX PO SCH (20:32)
[2022-02-07] MEDS: ROCEPHIN 1 GM/50 ML D5W 1 GM/50 ML BAG IV SCH (21:32)
[2022-02-08] MEDS: ALBUTEROL 0.083% NEB NEB SCH ×6 (01:50→21:06)
[2022-02-08] MEDS: PULMICORT 0.5 MG/2 ML NEB SCH ×2 (04:45→17:35)
[2022-02-08] MEDS: SOLU-MEDROL 125 MG IVP SCH (05:19)
[2022-02-08 05:47] LABS: EOSINOPHILS % (AUTO) 0.2 % (0.0-7.0); HEMOGLOBIN 12.7 g/dl (14.0-18.0); IMMATURE GRANULOCYTE % (AUTO) 0.8 % (0.0-5.0); LYMPHOCYTES # (AUTO) 0.9 K/uL (0.60-3.4); LYMPHOCYTES % (AUTO) 17.2 (10.0-50.0); MEAN CORPUSCULAR HEMOGLOBIN 31.4 pg (27.0-31.0); MEAN CORPUSCULAR HGB CONC 33.4 (31.8-35.4); MEAN CORPUSCULAR VOLUME 93.8 fl (80.0-94.0); MONOCYTES # (AUTO) 0.2 K/uL (0.4-2.0); MONOCYTES % (AUTO) 4.3 (0-10); NEUTROPHILS % (AUTO) 77.5 % (42.2-75.2); PLATELET COUNT 220 10^3/uL (140-440); RDW COEFFICIENT OF VARIATION 13.3 % (11.6-14.8); RED BLOOD COUNT 4.05 10^6/ul (4.70-6.10); WHITE BLOOD COUNT 5.12 K/ul (4.2-10.2)
[2022-02-08] MEDS: NYSTATIN ORAL SUSP PO SCH ×4 (05:56→20:37)
[2022-02-08 06:03] LABS: ALANINE AMINOTRANSFERASE 21.4 U/L (0-50); ALBUMIN 4.24 g/dL (3.5-5.0); ALKALINE PHOSPHATASE 45.2 U/L (56-119); ASPARTATE AMINO TRANSFERASE 25.1 U/L (17-59); BILIRUBIN,TOTAL 0.41 mg/dL (0.2-1.3); BLOOD UREA NITROGEN 40.1 mg/dL (9-20); CALCIUM 9.5 mg/dL (8.4-10.2); CARBON DIOXIDE 31.7 mmol/L (22-30.0); CREATININE 1.32 mg/dL (0.60-1.10); GLUCOSE 119.9 mg/dL (74-106); POTASSIUM 4.37 mmol/L (3.5-5.1); SODIUM 130.3 mmol/L (134.5-145); TOTAL PROTEIN 6.81 g/dL (6.3-8.2)
[2022-02-08] MEDS ORDERED: SODIUM CHLORIDE 1,000 ML IV SCH (08:30)
--- NOTE | 2022-02-08 08:48 | PCM.PROG ---
Attending Provider: ATTENDING PROVIDER: Dr. HAILEY SCHULTE MD This patient is seen with Debbie Garcia, Nurse Practitioner. DATE OF SERVICE: 02/08/22 SUBJECTIVE: This 81 year old /WHITE M was hospitalized 02/05/22. Resting comfortably. Slept well through the night on BIPAP. Does have expected desat uration on exertion but recovers quickly. Respiratory status has improved from admission. He has been eating well. He has been up and about. REVIEW OF SYSTEMS: CONSTITUTIONAL: No night sweats. No fatigue, malaise, lethargy. No fever or chills. HEENT: Eyes: No visual changes. No eye pain. No eye discharge. ENT: No runny nose. No epistaxis. No sinus pain. No odynophagia. No congestion. RESPIRATORY: [place], no congestion. No hemoptysis. Shortness of breath. CARDIOVASCULAR: No angina symptoms. No CHF symptoms. No atypical chest pain for CAD. No palpitations. No orthopnea.. GASTROINTESTINAL: No abdominal pain. No nausea or vomiting. No diarrhea or constipation. No hematemesis. No hematochezia. GENITOURINARY: No urgency. No frequency. No dysuria. No hematuria. No obstr uctive symptoms. No discharge. No pain. No significant abnormal bleeding. MUSCULOSKELETAL: No musculoskeletal pain; no joint swelling. NEUROLOGICAL: Awake, alert, oriented to time, place and person. No headache. No neck pain. No syncope. No seizures. No dizziness. PSYCHIATRIC: Anxious. No depression. No suicidal thoughts. No homicidal thoughts. SKIN: No rash. No lesions. No wounds. ENDOCRINE: No unexplained weight loss. No weight gain. HEMATOLOGIC/LYMPHATIC: No anemia. No purpura. No petechiae. No prolonged or excessive bleeding. No palpable lymph nodes. PHYSICAL EXAMINATION: GENERAL: The patient is awake, alert and oriented, lying in bed in no distress. VITAL SIGNS: Temperature 97.9 F, Pulse 72, Respiratory Rate 18, BP 138/79, Pulse Ox 99% HEENT: Head normocephalic, atraumatic. Eyes: Extraocular muscles are intact. Pupils are equal, round and reactive to light and accommodation. Ears: No lesions. Nose appeared normal. Throat: No exudate or erythema. NECK: Supple. No JVD, no carotid bruit. No lymphadenopathy or thyromegaly. LUNGS: Diminished breath sounds. Clear to auscultation. Percussion note normal. Chest symmetrical. HEART: S1, S2, no S3. No murmurs. No cyanosis or clubbing. No ascites. Pulses: Dorsalis pedis and posterior tibial pulses +1 to +2 both sides. ABDOMEN: Soft. Non-tender. Bowel sounds active. No CVA tenderness. No mass felt. EXTREMITIES: No edema. Full range of motion of all extremities, equal. NEUROLOGIC: No focal deficit. Cranial nerves II through XII are grossly intact. No headache. No double vision. SKIN: Not dry. Intact. Turgor-normal. LYMPHATIC: No palpable lymph nodes/no lymphedema. MUSCULOSKELETAL: Normal joints with no swelling. Muscle tone is normal. LAB REVIEW: 02/08/22 05:35 02/08/22 05:35 02/08/22 05:35: Sodium 130.3 L, Potassium 4.37, Chloride 94.0 L, Carbon Dioxide 31.7 H, Anion Gap 8.97, BUN 40.1 H, Creatinine 1.32 H, Estimated GFR (MDRD) 52.00, BUN/Creatinine Ratio 30.37, Glucose 119.9 H, Calcium 9.50, Total Bilirubin 0.41, AST 25.1, ALT 21.4, Alkaline Phosphatase 45.2 L, Total Protein 6.81, Albumin 4.24, Globulin 2.57, Albumin/Globulin Ratio 1.64 02/08/22 05:35: WBC 5.12, RBC 4.05 L, Hgb 12.7 L, Hct 38.0 L, MCV 93.8, MCH 31.4 H, MCHC 33.4, RDW Coeff of Bhaskar 13.3, Plt Count 220, Immature Gran % (Auto) 0.8, Neut % (Auto) 77.5 H, Lymph % (Auto) 17.2, [place] % (Auto) 4.3, Eos % (Auto) 0.2, Baso % (Auto) 0.0, Neut # (Auto) 4.0, Lymph # (Auto) 0.9, [place] # (Auto) 0.2 L, Eos # (Auto) 0.0, Baso # (Auto) 0.0, Immature Gran # (Auto) 0.0 ASSESSMENT: Please see below. 1. Acute COPD exacerbation 2. Acute one chronic respiratory failure 3. Anxiety 4. Hypertension PLAN: 1. One bag of normal saline at 75cc 2. Discontinue Solu-Medrol 3. Prednisone 20mg BID 4. Keflex 500mg TID 5. Discontinue Rocephin 6. Discontinue Lovenox Plan and coordination of the patient's care discussed in the presence of Property Preservation Specialist and nurse. SCRIBED BY: Merced VELEZist scribed while in presence of service performed by Dr. Schulte/Debbie Garcia APRN on 02/08/22 ([id number])
[2022-02-08] MEDS ORDERED: LASIX TAB PO SCH (09:00)
[2022-02-08] MEDS: ASTELIN 0.1% NAS SCH ×2 (09:42→20:47)
[2022-02-08] MEDS: MIRALAX PO SCH ×2 (09:43→20:37)
[2022-02-08] MEDS: MINOXIDIL PO SCH ×2 (09:43→20:38)
[2022-02-08] MEDS: ANORO ELLIPTA 62.5-25 MCG INH IH SCH (09:43)
[2022-02-08] MEDS: XANAX PO SCH ×3 (09:43→20:38)
[2022-02-08] MEDS: KEFLEX PO SCH ×3 (09:43→20:39)
[2022-02-08] MEDS: NORVASC PO SCH (09:44)
[2022-02-08] MEDS: LASIX TAB PO SCH (09:44)
[2022-02-08] MEDS: ZITHROMAX PO SCH (09:44)
[2022-02-08] MEDS: MUCINEX PO SCH ×2 (09:44→20:37)
[2022-02-08] MEDS: COREG PO SCH ×2 (09:45→18:00)
[2022-02-08] MEDS: LEXAPRO PO SCH (09:45)
[2022-02-08] MEDS: COZAAR PO SCH ×2 (09:45→20:38)
[2022-02-08] MEDS: PREDNISONE PO SCH ×2 (09:45→17:59)
[2022-02-08] MEDS: PROTONIX PO SCH (09:45)
[2022-02-08] MEDS ORDERED: TORADOL IVP ONE (13:07)
--- NOTE | 2022-02-08 13:51 | PN ---
DATE OF SERVICE: 02/05/22 ADMIT NOTE SUBJECTIVE: The patient was brought to the emergency room. The patient was seen by Dr. Alexis. The patient had mild respiratory distress with cough and congestion and exacerbation of COPD. The patient has severe endstage COPD and has been on steroids off and on with nebulizer treatment, inhalers. The patient's chest x- ray was practically unremarkable. EKG no acute changes were noted. Arterial gasses showed mild hypoxemia with normal pH with no CO2 retention. Plan is to hospitalize the patient with acute exacerbation of COPD. The patient is do not intubate. He was given steroids, antibiotics, NEBS, inhalers. CONDITION: Stable. TIME SPENT: More than 30 minutes. Plan and coordination of the patient's care discussed in the presence of nurse. NITIN
--- NOTE | 2022-02-08 14:00 | PN ---
DATE OF SERVICE: 02/06/22 SUBJECTIVE: The patient was seen and examined with the Nurse Practitioner. The patient's has been on steroids, NEBS. The patient's condition is stable. He is breathing a lot better, feeling better. TIME SPENT: More than 30 minutes. Plan and coordination of the patient's care discussed in the presence of nurse. NITIN
--- NOTE | 2022-02-08 14:33 | PN ---
DATE OF SERVICE: 02/07/22 SUBJECTIVE: 81 year old white male hospitalized with COPD exacerbation with respiratory failure. The aptient's blood gasses with 4 liters with pO2 of 64, pCO2 48 with pH 7.40 with 92%. On room air his saturation on admission was less than 85%. In any case the condition has improved. He is feeling a lot better. He is talking without pausing or being short of breath. Feeling a lot better. REVIEW OF SYSTEMS: CONSTITUTIONAL: No night sweats. Less weakness and fatigue. No fever or chills. HEENT: Eyes: No visual changes. No eye pain. No eye discharge. ENT: No runny nose. No epistaxis. No sinus pain. No sore throat. No odynophagia. No congestion. RESPIRATORY: Cough much less, no congestion. No hemoptysis. Shortness of breath at rest is absent. CARDIOVASCULAR: No angina symptoms. No CHF symptoms. No atypical chest pain for CAD. No palpitations. No PND. No orthopnea. GASTROINTESTINAL: No abdominal pain. No nausea or vomiting. No diarrhea or constipation. No hematemesis. No hematochezia. GENITOURINARY: No urgency. No frequency. No dysuria. No hematuria. No obstructive symptoms. No discharge. No pain. No significant abnormal bleeding. MUSCULOSKELETAL: No musculoskeletal pain; no joint swelling. NEUROLOGICAL: No headache. No neck pain. No syncope. No seizures. No dizziness. PSYCHIATRIC: Not anxious. No depression. No suicidal thoughts. No homicidal thoughts. SKIN: No rash. No lesions. No wounds. ENDOCRINE: No unexplained weight loss. No weight gain. HEMATOLOGIC/LYMPHATIC: No anemia. No purpura. No petechiae. No prolonged or excessive bleeding. No palpable lymph nodes. PHYSICAL EXAMINATION: VITAL SIGNS: Temperature 97.4, pulse 83, respiratory rate 18, blood pressure 150/70 and pulse ox 95%. HEENT: Head normocephalic, atraumatic. Eyes: Extraocular muscles are intact. Pupils are equal, round and reactive to light and accommodation. Ears: No lesions. Nose appeared normal. Throat: No exudate or erythema. NECK: Supple. No JVD, no carotid bruit. No lymphadenopathy or thyromegaly. LUNGS: Decreased breath sounds but clear to auscultation. Percussion note normal. Chest symmetrical. HEART: S1, S2, no S3. No murmurs. No cyanosis or clubbing. No ascites. Pulses: Dorsalis pedis and posterior tibial pulses +1 to +2 bilaterally. ABDOMEN: Soft. Nontender. Bowel sounds active. No CVA tenderness. No mass felt. EXTREMITIES: No edema. Full range of motion of all extremities, equal. NEUROLOGIC: No focal deficit. Cranial nerves II through XII are grossly intact. No headache. No double vision. SKIN: Not dry. Intact. Turgor - normal. LYMPHATIC: No palpable lymph nodes/no lymphedema. MUSCULOSKELETAL: Normal joints with no swelling. Muscle tone is normal. LABS: hgb 11.7, cht 34, WBC 4,300 normal differential, creatinine 0.8, BUN 29, potassium 4.4. ASSESSMENT: 1. Acute COPD exacerbation seems to be under control with improvement in oxygenation PLAN: 1. Continue steroids, NEBS and antibiotics 2. Advised pulmonary rehab, pulmonary rehab discussed. CONDITION: Stable. TIME SPENT: More than 30 minutes. Plan and coordination of the patient's care discussed in the presence of nurse. NITIN
[2022-02-08] MEDS: CATAPRES PO SCH ×2 (14:56→20:39)
[2022-02-08] MEDS: ASPIRIN EC PO SCH (20:37)
[2022-02-08] MEDS: FLOMAX PO SCH (20:38)
[2022-02-09] MEDS: ALBUTEROL 0.083% NEB NEB SCH ×4 (01:08→13:30)
[2022-02-09] MEDS: PULMICORT 0.5 MG/2 ML NEB SCH (04:40)
[2022-02-09 05:18] LABS: HEMATOCRIT 33.3 % (42.0-52.0); HEMOGLOBIN 11.3 g/dl (14.0-18.0); IMMATURE GRANULOCYTE # (AUTO) 0.1 (0.0-1.0); IMMATURE GRANULOCYTE % (AUTO) 1.3 % (0.0-5.0); LYMPHOCYTES # (AUTO) 0.7 K/uL (0.60-3.4); MEAN CORPUSCULAR HEMOGLOBIN 31.8 pg (27.0-31.0); MEAN CORPUSCULAR HGB CONC 33.9 (31.8-35.4); MEAN CORPUSCULAR VOLUME 93.8 fl (80.0-94.0); MONOCYTES # (AUTO) 0.5 K/uL (0.4-2.0); MONOCYTES % (AUTO) 9.8 (0-10); NEUTROPHILS # (AUTO) 3.5 K/ul (2.0-6.9); NEUTROPHILS % (AUTO) 73.9 % (42.2-75.2); PLATELET COUNT 192 10^3/uL (140-440); RDW COEFFICIENT OF VARIATION 13.2 % (11.6-14.8); RED BLOOD COUNT 3.55 10^6/ul (4.70-6.10); WHITE BLOOD COUNT 4.79 K/ul (4.2-10.2)
[2022-02-09 05:28] LABS: ALANINE AMINOTRANSFERASE 18.1 U/L (0-50); ALBUMIN 3.25 g/dL (3.5-5.0); ALKALINE PHOSPHATASE 39.1 U/L (56-119); ASPARTATE AMINO TRANSFERASE 22.4 U/L (17-59); BILIRUBIN,TOTAL 0.45 mg/dL (0.2-1.3); BLOOD UREA NITROGEN 43.2 mg/dL (9-20); CALCIUM 8.62 mg/dL (8.4-10.2); CARBON DIOXIDE 31.4 mmol/L (22-30.0); CHLORIDE 97.1 mmol/L (98-107); CREATININE 1.28 mg/dL (0.60-1.10); GLUCOSE 140.2 mg/dL (74-106); POTASSIUM 4.5 mmol/L (3.5-5.1); SODIUM 130.1 mmol/L (134.5-145); TOTAL PROTEIN 5.47 g/dL (6.3-8.2)
[2022-02-09 05:49] VITALS: BP 116/73; TEMP 97.5
[2022-02-09] MEDS: LASIX TAB PO SCH (05:50)
[2022-02-09] MEDS: PROTONIX PO SCH (05:51)
[2022-02-09] MEDS: NYSTATIN ORAL SUSP PO SCH ×2 (05:51→11:23)
[2022-02-09] MEDS: ANORO ELLIPTA 62.5-25 MCG INH IH SCH (08:58)
[2022-02-09] MEDS: COREG PO SCH (08:58)
[2022-02-09] MEDS: NORVASC PO SCH (08:58)
[2022-02-09] MEDS: XANAX PO SCH ×2 (08:58→14:07)
[2022-02-09] MEDS: ASTELIN 0.1% NAS SCH ×2 (08:58→09:00)
[2022-02-09] MEDS: COZAAR PO SCH (08:59)
[2022-02-09] MEDS: KEFLEX PO SCH ×2 (08:59→14:07)
[2022-02-09] MEDS: LEXAPRO PO SCH (09:00)
[2022-02-09] MEDS: MUCINEX PO SCH (09:00)
[2022-02-09] MEDS: MIRALAX PO SCH (09:00)
[2022-02-09] MEDS: MINOXIDIL PO SCH (09:00)
[2022-02-09] MEDS: ZITHROMAX PO SCH (09:01)
[2022-02-09] MEDS: PREDNISONE PO SCH (09:01)
[2022-02-09] MEDS: CATAPRES PO SCH (14:08)
--- NOTE | 2022-02-14 09:43 | PN ---
DATE OF SERVICE: 02/08/22 SUBJECTIVE: The patient was seen and examined with the Nurse Practitioner. His condition is steadily improving. His lung functions seems to be better. He talks longer without taking any breath. The patient's oxygen saturation is 96% on 2 liters. The patient has habit of jacking up the oxygen whenever he feels short of breath. The patient was explained about the need for only 2-3 liters of oxygen, not to use anymore and the side effects that he can have with abusing the oxygen. TIME SPENT: More than 30 minutes. Plan and coordination of the patient's care discussed in the presence of nurse. NITIN
--- NOTE | 2022-02-14 13:01 | PN ---
DATE OF SERVICE: 02/09/22 SUBJECTIVE: 81 year old white male hospitalized with COPD exacerbation. The patient's condition has improved slowly but remarkable. He is feeling better. He is ready to do home. REVIEW OF SYSTEMS: CONSTITUTIONAL: No night sweats. Less fatigue and weakness. No fever or chills. HEENT: Eyes: No visual changes. No eye pain. No eye discharge. ENT: No runny nose. No epistaxis. No sinus pain. No sore throat. No odynophagia. No congestion. RESPIRATORY: Cough is much less, no congestion. No hemoptysis. No shortness of breath. Breathing more deeper. CARDIOVASCULAR: No angina symptoms. No CHF symptoms. No atypical chest pain for CAD. No palpitations. No PND. No orthopnea. GASTROINTESTINAL: No abdominal pain. No nausea or vomiting. No diarrhea or constipation. No hematemesis. No hematochezia. Appetite seems to have improved. GENITOURINARY: No urgency. No frequency. No dysuria. No hematuria. No obstructive symptoms. No discharge. No pain. No significant abnormal bleeding. MUSCULOSKELETAL: No musculoskeletal pain; no joint swelling. NEUROLOGICAL: No headache. No neck pain. No syncope. No seizures. No dizziness. PSYCHIATRIC: Not anxious. No depression. No suicidal thoughts. No homicidal thoughts. SKIN: No rash. No lesions. No wounds. ENDOCRINE: No unexplained weight loss. No weight gain. HEMATOLOGIC/LYMPHATIC: No anemia. No purpura. No petechiae. No prolonged or excessive bleeding. No palpable lymph nodes. PHYSICAL EXAMINATION: VITAL SIGNS: Temperature 97.5, pulse 75, respiratory rate 20, blood pressure 116/73 and pulse ox 97%. HEENT: Head normocephalic, atraumatic. Eyes: Extraocular muscles are intact. Pupils are equal, round and reactive to light and accommodation. Ears: No lesions. Nose appeared normal. Throat: No exudate or erythema. NECK: Supple. No JVD, no carotid bruit. No lymphadenopathy or thyromegaly. LUNGS: Decreased breath sounds but clear to auscultation. Percussion note normal. Chest symmetrical. HEART: S1, S2, no S3. No murmurs. No cyanosis or clubbing. No ascites. Pulses: Dorsalis pedis and posterior tibial pulses +1 to +2 bilaterally. ABDOMEN: Soft. Nontender. Bowel sounds active. No CVA tenderness. No mass felt. EXTREMITIES: No edema. Full range of motion of all extremities, equal. NEUROLOGIC: No focal deficit. Cranial nerves II through XII are grossly intact. No headache. No double vision. SKIN: Not dry. Intact. Turgor - normal. LYMPHATIC: No palpable lymph nodes/no lymphedema. MUSCULOSKELETAL: Normal joints with no swelling. Muscle tone is normal. LABS: Hgb 11.3, hct 33, WBC 4,700 normal differential, creatinine 1.2, BUN 43. ASSESSMENT: 1. Acute exacerbation of COPD seems to have subsided 2. Endstage COPD with chronic respiratory failure 3. Coronary artery disease with history of stent PLAN: 1. Discharge the patient home on antibiotics, steroids CONDITION: Stable PROGNOSIS: Guarded TIME SPENT: More than 30 minutes. Plan and coordination of the patient's care discussed in the presence of nurse. NITIN
--- NOTE | 2022-03-08 13:08 | HP ---
DATE OF SERVICE: 02/05/22 HISTORY OF PRESENT ILLNESS: 81 year-old white male who presented to the emergency room complaining of shortness of breath, wheezing, coughing and had desaturations at home with exertion. PAST MEDICAL HISTORY: End stage COPD, oxygen dependent Wears noninvasive ventilator at night, sees Dr. 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 Oconnor Hyperglycemia Right sciatica Degenerative disc disease of L spine Diverticulosis Chronic hyponatremia PAST SURGICAL HISTORY: Coronary artery disease, stent in 1999 Bilateral cataract extraction 2015 Cholecystectomy Basal cell removed from nose 09/28 REVIEW OF SYSTEMS: CONSTITUTIONAL: No night sweats. Anxiety. Fatigue. No malaise, lethargy. No fever or chills. HEENT: Eyes: No visual changes. No eye pain. No eye discharge. ENT: No runny nose. No epistaxis. No sinus pain. No sore throat. No odynophagia. No ear pain. No congestion. RESPIRATORY: Cough, wheezing. No congestion. No hemoptysis. Shortness of breath. CARDIOVASCULAR: No angina symptoms. No CHF symptoms. No atypical chest pain for CAD. No palpitations. No PND. No orthopnea. GASTROINTESTINAL: No abdominal pain. No nausea or vomiting. No diarrhea or constipation. No hematemesis. No hematochezia. GENITOURINARY: No urgency. No frequency. No dysuria. No hematuria. No obstructive symptoms. No discharge. No pain. No significant abnormal bleeding. MUSCULOSKELETAL: No musculoskeletal pain. No joint swelling. No arthritis. NEUROLOGICAL: No headache. No neck pain. No syncope. No seizures. No dizziness. PSYCHIATRIC: Not anxious. No depression. No suicidal thoughts. No homicidal thoughts. SKIN: No rash. No lesions. No wounds. ENDOCRINE: No unexplained weight loss. No weight gain. HEMATOLOGIC/LYMPHATIC: No anemia. No purpura. No petechiae. No prolonged or excessive bleeding. No palpable lymph nodes. LABS: White count 5.18, hemoglobin 12.4, hematocrit 36.7, platelets 188, sodium 130, potassium 4.4, BUN 22, creatinine 0.98, glucose 102, carbon dioxide 30.5, ABG's on 4 liters - O2 sat 92, PH 7.4, PCO2 48, PO2 64, bicarb 29.1. NT proBNP 27. Influenza A and B and Covid are all negative. Chest x-ray shows no acute process. PERSONAL/FAMILY/SOCIAL HISTORY: He lives at home and I do believe with his daughter. He is a former smoker but has quit for the past ten years. No alcohol or elicit drug use. He is compliant with his follow up. He is . PHYSICAL EXAMINATION: GENERAL: The patient is alert and oriented. VITAL SIGNS: Temp 97.9, heart rate 78, respirations 22, blood pressure 151/74, pulse ox 94% on 4 liters. HEENT: Head normocephalic, atraumatic. Eyes: Extraocular muscles are intact. Pupils are equal, round and reactive to light and accommodation. Ears: No lesions. Nose appeared normal. Throat: No exudate or erythema. NECK: Supple. No JVD, no carotid bruit. No lymphadenopathy or thyromegaly. LUNGS: Diminished breath sounds with bilateral expiratory wheeze. Percussion note normal. Chest symmetrical. HEART: S1, S2, no S3. No murmur. No cyanosis or clubbing. No ascites. Pulses: Dorsalis pedis and posterior tibial pulses +1 to +2 bilaterally. ABDOMEN: Soft. Nontender. Bowel sounds active. No CVA tenderness. No mass felt. EXTREMITIES: No leg edema. Full range of motion of all extremities, equal. NEUROLOGIC: No focal deficit. Cranial nerves II through XII are grossly intact. No headache, no double vision or headache. SKIN: Not dry. Intact. Turgor - normal. LYMPHATIC: No palpable lymph nodes/no lymphedema. MUSCULOSKELETAL: Normal joints with no swelling. Muscle tone is normal. ASSESSMENT: 1. Acute COPD, exacerbation 2. Acute and chronic respiratory failure 3. Hypertension 4. Anxiety 5. Tachypnea PLAN: 1. Routine telemetry orders 2. CBC, CMP daily 3. UA with culture 4. Solu cortef 125 IV Q eight hours 5. Rocephin 1 gram IV daily 6. Zithromax 500 mg PO daily x3 days 7. Duonebs TID scheduled 8. Oxygen at 4 liters, will adjust according to ABG's in the morning 9. Regular diet 10.Continue home medications 11. Will follow closely TIME SPENT: More than 70 minutes. MTDD
--- NOTE | 2022-03-08 13:28 | DS ---
DATE OF SERVICE: 02/09/22 FINAL DIAGNOSIS: Acute COPD, exacerbation End stage COPD Chronic respiratory failure Coronary artery disease Anxiety Hypertension DISCHARGE INSTRUCTIONS: Followup with Dr. Morales and follow up with us next week. HOSPITAL COURSE: 81 year-old white male who was hospitalized after coming to the emergency room complaining of worsening shortness of breath. ABG's found O2 sat to be 90%. Chest x-ray showed changes associated with COPD. He was on 4 liters of oxygen, anxious, visibly in distress. He was admitted and started on Rocephin, IV Solu cortef, duonebs as well as Zithromax. Over the course of the next several days he steadily improved . He is very anxious and does not have a good idea of disease progression regarding his COPD. He is very obsessed regarding his O2 saturation and checks it constantly. We have discussed that it is normal for him to have some mild desaturation with exertion, the importance that he is suppose to wear his percussion vest multiple times a day in order to help with the secretions. He is to wear his triology at night time and do his nebulizer throughout the day at least three times a day. He is going to go home on Keflex and Prednisone. He is discharged in stable condition. No other medication changes occurred. TIME SPENT: More than 60 minutes. NITIN
== END 2022-02-09 14:20 | disposition home or self-care (01) | DRG 190 ==
LOC: ED 18:22 → MEDSURG A 21:26
PROVIDERS: ADMIT Internal Medicine; ATTEND Internal Medicine
DX: Z95.5 Presence of coronary angioplasty implant and graft; Z99.81 Dependence on supplemental oxygen; J96.20 Acute and chronic respiratory failure, unspecified whether with hypoxia or hypercapnia; Z51.81 Encounter for therapeutic drug level monitoring; F41.9 Anxiety disorder, unspecified; E87.1 Hypo-osmolality and hyponatremia; R53.83 Other fatigue; G47.30 Sleep apnea, unspecified; I10 Essential (primary) hypertension; Z79.899 Other long term (current) drug therapy; J44.1 Chronic obstructive pulmonary disease with (acute) exacerbation; Z20.822 Contact with and (suspected) exposure to COVID-19; M47.9 Spondylosis, unspecified; N18.2 Chronic kidney disease, stage 2 (mild); D75.1 Secondary polycythemia; I25.10 Atherosclerotic heart disease of native coronary artery without angina pectoris; R06.82 Tachypnea, not elsewhere classified

== ENCOUNTER 2022-04-16 14:34 | Inpatient (IN) ==
--- NOTE | 2022-04-16 14:44 | ED.PDOC ---
General ED Provider: Dr. CONI MARTINEZ MD Chief Complaint: Shortness of Air Stated Complaint: Patient has oxygen dependent COPD and presents now with 3 day history of progressive dyspnea. He also complains of cough productive of some yellow colored sputum and increased peripheral edema. Denies fever, chills, chest pain. Time Seen by Provider: 04/16/22 14:42 Mode of Arrival: Ambulance Information Source: Patient Primary Care Provider: HAILEY SCHULTE MD Nursing and Triage Documentation Reviewed and Agree: Yes Does patient meet sepsis criteria?: No System Inflammatory Response Syndrome: Not Applicable Sepsis Protocol: For patient's 13 years and over: Temp is 96.8 and below OR 101 and greater Pulse >90 BPM Resp >20/minute Acutely Altered Mental Status Are patient's symptoms suggestive of a new infection, such as: -Pneumonia -Skin, Soft Tissue -Endocarditis -UTI -Bone, Joint Infection -Implantable Device -Acute Abdominal Infection -Wound Infection -Meningitis -Blood Stream Catheter Infection -Unknown Review of Systems Review Of Systems Constitutional: Reports Weakness Eyes: Reports No symptoms Ears, Nose, Mouth, Throat: Reports No symptoms Respiratory: Reports Cough and Short of air Cardiac: Reports Edema GI: Reports No symptoms : Reports No symptoms Musculoskeletal: Reports No symptoms Skin: Reports No symptoms Neurological: Reports No symptoms Endocrine: Reports No symptoms Hematologic/Lymphatic: Reports No symptoms All Other Systems: Reviewed and Negative [facility] Medical History (Updated 04/16/22 @ 16:04 by CONI MARTINEZ MD) Anxiety Arteriosclerosis Blood disease BPH (benign prostatic hyperplasia) CAD (coronary artery disease) Cancer of skin of external nose (~10/04/20) Chronic bronchitis Chronic hyponatremia Chronic respiratory failure CKD (chronic kidney disease) stage 3, GFR 30-59 ml/min COPD (chronic obstructive pulmonary disease) Diverticulosis Emphysema of lung Enlarged heart Gastroesophageal reflux disease Hypertension Osteoarthritis Oxygen dependent Prostate enlargement Sciatica, right side Seasonal allergies Secondary polycythemia Sleep apnea TMJ (temporomandibular joint disorder) Family History Mother Obstetric anesthesia problems Emphysema of lung Social History Smoking and tobacco status: Former smoker History of recent travel: No Surgical History History of bilateral cataract extraction History of coronary artery stent placement History of tonsillectomy Physical Exam Physical Exam Appearance: Reports Ill-appearing, No pain distress, Well-nourished and Other (Patient appears chronically ill and is in no respiratory distress.) Ill-appearing: Moderate Pain Distress: None Eyes: Reports ABDIAS and EOMI ENT: Reports Nose normal and Oropharynx normal Neck: Supple Respiratory: Reports Airway patent, Breath sounds clear, Breath sounds equal and Breath sounds diminished Cardiovascular: Reports RRR, No rub, No murmur and Other (pitting edema bilaterally) GI/: Reports Soft, Nontender, No masses and Bowel sounds normal Musculoskeletal: Reports Normal strength and ROM intact Skin: Reports Warm and Dry Neurological: Reports Alert and Oriented Psychiatric: Reports Affect appropriate and Mood appropriate Interpretation Radiology Interpretation Radiology Interpretation By: Radiologist Exam Interpreted: Portable CXR (bibasilar atelectasis vs pneumonia) EKG Interpretation Time of EKG #1: 15:25 Rate: Normal Rhythm: Sinus Ectopy: None [place]: NL ST Segment: Normal Interpretation: normal sinus rhythm with 1st degree AV block Critical Care Note Critical Care Note Total Critical Care Time (mins): 0 Course Course Hematology/Chemistry: 04/16/22 14:58 04/16/22 14:58 Orders, Labs, Meds: Lab Review 04/16/22 04/16/22 04/16/22 14:58 14:58 15:11 WBC 4.24 RBC 4.11 L Hgb 12.5 L Hct 37.2 L MCV 90.5 MCH 30.4 MCHC 33.6 RDW Coeff of Bhaskar 13.0 Plt Count 141 Immature Gran % (Auto) 0.2 Neut % (Auto) 57.2 Lymph % (Auto) 27.1 Ida % (Auto) 11.8 H Eos % (Auto) 3.5 Baso % (Auto) 0.2 Neut # (Auto) 2.4 Lymph # (Auto) 1.2 Ida # (Auto) 0.5 Eos # (Auto) 0.2 Baso # (Auto) 0.0 Immature Gran # (Auto) 0.0 Puncture Site Rrad Base Excess 9.8 H O2 Saturation 90.9 L ABG pH 7.38 ABG pCO2 59.0 H ABG pO2 62.0 L ABG HCO3 34.9 H ABG Total CO2 36.7 H Albino Test Pos Hemoglobin 1.1 Oxyhemoglobin 91.1 L Carboxyhemoglobin 2.1 H Total Hemoglobin 12.8 O2 Delivery Device Cannula Oxygen Liter Flow 3.00 Sodium 130.6 L Potassium 4.01 Chloride 90.2 L Carbon Dioxide 35.5 H Anion Gap 8.91 BUN 18.2 Creatinine 1.06 Estimated GFR (MDRD) 67.00 BUN/Creatinine Ratio 17.16 Glucose 121.3 H Calcium 9.18 Total Bilirubin 0.75 AST 24.5 ALT 17.7 Alkaline Phosphatase 55.0 L Troponin I < 0.012 NT-Pro-B Natriuret Pep 102.000 Total Protein 6.86 Albumin 4.27 Globulin 2.59 Albumin/Globulin Ratio 1.64 Orders Category Date Time Status ABG DRAW REQUEST Stat CARDIO 04/16/22 14:46 Completed EKG-(ED ONLY) Stat CARDIO 04/16/22 14:46 Completed NEBULIZER TREATMENT Stat CARDIO 04/16/22 14:47 Completed Saline Lock [ED IV/MEDIPORT/POWERPORT] .ONCE EMERGENCY 04/16/22 14:46 Active ABG COOX Stat LAB 04/16/22 15:11 Completed CBC W/ AUTO DIFF Stat LAB 04/16/22 14:58 Completed CMP [COMPREHENSIVE METABOLIC PANEL] Stat LAB 04/16/22 14:58 Completed COVID [SARS COV-2 RNA RAPID BALWINDER] Stat LAB 04/16/22 15:54 Received FLU A & B MOLECULAR [FLU A/B MOLECULAR] Stat LAB 04/16/22 15:54 Received NT-PROBNP Stat LAB 04/16/22 14:58 Completed TROPONIN I Stat LAB 04/16/22 14:58 Completed 0.9 % Sodium Chloride [Saline Flush] MEDS 04/16/22 14:46 Active 1 syr IVF PRN PRN Ipratropium/Albuterol Neb [Duoneb] MEDS 04/16/22 14:46 Discontinued 3 ml NEB ONCE STA Methylprednisolone Sod Succ/Pf [Solu-Medrol 125 mg] MEDS 04/16/22 14:46 Discontinued 125 mg IVP ONCE STA CXR [CHEST, 1V AP ONLY] Stat RADS 04/16/22 14:46 Completed Medications Generic Name Dose Route Start Last Admin Trade Name Freq PRN Reason Stop Dose Admin Sodium Chloride 1 syr 04/16/22 14:46 0.9% Sodium Chloride 10 Ml Disp.Syrin IVF PRN PRN To flush IV Discontinued Medications Generic Name Dose Route Start Last Admin Trade Name Freq PRN Reason Stop Dose Admin Albuterol/Ipratropium 3 ml 04/16/22 14:46 04/16/22 15:33 Ipratropium/Albuterol Vial.Neb NEB 04/16/22 14:47 3 ml ONCE STA Administration Methylprednisolone Sodium Succinate 125 mg 04/16/22 14:46 04/16/22 15:15 Methylprednisolone Sod Succ/Pf 125 Mg/2 Ml Vial IVP 04/16/22 14:47 125 mg ONCE STA Administration Vital Signs: Temp Pulse Resp BP Pulse Ox 04/16/22 14:35 98 F 73 20 171/78 H 92 L Discharge Plan Discharge Patient Disposition: ADMITTED INPATIENT Discharge Problem: COPD with acute exacerbation Prescriptions: No Action aspirin 81 MG tablet,delayed release (DR/EC) 81 mg PO BEDTIME budesonide 0.5 mg/2 mL Suspension For Nebulization 0.5 mg inhalation BID guaifenesin [Mucinex] 600 mg Tablet Extended Release 12hr 1,200 mg PO BID alprazolam [Xanax] 0.5 mg Tablet 0.5 mg PO TID clonidine HCl 0.1 mg tablet 0.2 mg PO DAILY pantoprazole [Protonix] 40 MG tablet,delayed release (DR/EC) 40 mg PO DAILY Qty: 30 0RF tamsulosin 0.4 MG capsule 0.8 mg PO BEDTIME albuterol sulfate [Ventolin HFA] 8 GM HFA aerosol inhaler 2 puff inhalation Q4-6H PRN (Reason: shortness of air) albuterol sulfate 1 VIAL solution for nebulization 1 vial NEB QID losartan 100 mg Tablet 50 mg PO BID Systane (propylene glycol) 0.4-0.3 % Drops 1 drp BOTHEYES 5XD PRN (Reason: Dry Eyes) amlodipine 5 mg tablet 5 mg PO DAILY Label Comments: TAKE 1 TABLET BY MOUTH EVERY DAY minoxidil 10 mg tablet 5 mg PO BID Label Comments: TAKE 1/2 TABLET BY MOUTH TWICE DAILY Stiolto Respimat 2.5-2.5 mcg/actuation mist 2 puff INHALATION DAILY Label Comments: INHALE 2 PUFFS BY MOUTH ONCE DAILY polyethylene glycol 3350 [Miralax] 17 gram Powder In Packet 17 g PO BID carvedilol [Coreg] 6.25 mg tablet 12.5 mg PO BID Rx Instructions: must administer with a meal/food furosemide [Lasix] 20 mg tablet 40 mg PO DAILY escitalopram oxalate 10 mg tablet 10 mg PO DAILY clonidine HCl 0.1 mg Tablet 0.1 mg PO BEDTIME PRN (Reason: HYPERTENSION) Rx Instructions: GIVE IF SYSTOLIC OVER 150 azelastine 137 mcg (0.1 %) Aerosol,[place] 2 spray INTRANASAL BID Did you review [place] FLIGHT DIRECTOR for ALL controlled substances?: Not Applicable ED Provider: CONI MARTINEZ Condition: Stable Physician Progress Note: []
[2022-04-16] MEDS ORDERED: DUONEB NEB STA (14:46)
[2022-04-16] MEDS ORDERED: SOLU-MEDROL 125 MG IVP STA (14:46)
[2022-04-16 15:05] LABS: BASOPHILS % (AUTO) 0.2 % (0.0-3.0); EOSINOPHILS # (AUTO) 0.2 K/ul (0.0-0.7); EOSINOPHILS % (AUTO) 3.5 % (0.0-7.0); HEMATOCRIT 37.2 % (42.0-52.0); HEMOGLOBIN 12.5 g/dl (14.0-18.0); IMMATURE GRANULOCYTE % (AUTO) 0.2 % (0.0-5.0); LYMPHOCYTES # (AUTO) 1.2 K/uL (0.60-3.4); LYMPHOCYTES % (AUTO) 27.1 (10.0-50.0); MEAN CORPUSCULAR HEMOGLOBIN 30.4 pg (27.0-31.0); MEAN CORPUSCULAR HGB CONC 33.6 (31.8-35.4); MEAN CORPUSCULAR VOLUME 90.5 fl (80.0-94.0); MONOCYTES # (AUTO) 0.5 K/uL (0.4-2.0); MONOCYTES % (AUTO) 11.8 (0-10); NEUTROPHILS # (AUTO) 2.4 K/ul (2.0-6.9); NEUTROPHILS % (AUTO) 57.2 % (42.2-75.2); PLATELET COUNT 141 10^3/uL (140-440); RED BLOOD COUNT 4.11 10^6/ul (4.70-6.10); WHITE BLOOD COUNT 4.24 K/ul (4.2-10.2)
[2022-04-16 15:14] LABS: ALANINE AMINOTRANSFERASE 17.7 U/L (0-50); ALBUMIN 4.27 g/dL (3.5-5.0); ASPARTATE AMINO TRANSFERASE 24.5 U/L (17-59); BILIRUBIN,TOTAL 0.75 mg/dL (0.2-1.3); BLOOD UREA NITROGEN 18.2 mg/dL (9-20); CALCIUM 9.18 mg/dL (8.4-10.2); CARBON DIOXIDE 35.5 mmol/L (22-30.0); CHLORIDE 90.2 mmol/L (98-107); CREATININE 1.06 mg/dL (0.60-1.10); GLUCOSE 121.3 mg/dL (74-106); POTASSIUM 4.01 mmol/L (3.5-5.1); SODIUM 130.6 mmol/L (134.5-145); TOTAL PROTEIN 6.86 g/dL (6.3-8.2)
[2022-04-16 15:21] LABS: ABG O2 HGB 91.1 % (95-100); ABG PH 7.38 (7.35-7.45); BEecf 9.8 (-2.0-3.0); COHb 2.1 (0.5-1.5); HCO3 34.9 (21-28); MetHb 1.1 (0-1.5); TCO2 36.7 (19-24); sO2 90.9 % (94-98); tHb 12.8 g/dl (11.7-17.4)
[2022-04-16 15:26] LABS: TROPONIN I < 0.012 ng/ml (0.0000-0.120)
--- NOTE | 2022-04-16 15:45 | DI ---
EXAMINATION: AP chest radiograph. HISTORY: Dyspnea COMPARISON: 02/05/2022 FINDINGS: The lungs are hyperexpanded. A right mid lung calcified granuloma is again seen. Bibasilar streaky opacities are seen and increased compared to the prior exam.No pneumothorax or pleural effusion is id entified. The cardiomediastinal silhouette is within normal limits. Calcified mediastinal / right hilar lymph n odes are noted. IMPRESSION: Bibasilar atelectasis and/or pneumonia. Emphysema.
[2022-04-16 16:14] LABS: MOLECULAR FLU A NEGATIVE BY NAAT (NEGATIVE); MOLECULAR FLU B POSITIVE BY NAAT (NEGATIVE)
--- NOTE | 2022-04-16 16:24 | PCM ---
Chief Complaint Chief Complaint: increasing dyspnea History of Present Illness History of Present Illness: Patient with advanced COPD. He presented with increasing dyspnea for 3 days. Review of Systems Constitutional: Reports Weakness Eyes: Reports No symptoms Ears: Reports No symptoms Nose: Reports No symptoms Throat: Reports No symptoms Mouth: Reports No symptoms Respiratory: Reports Cough and Shortness of air Cardiovascular: Reports Edema Gastrointestinal: Reports No symptoms Genitourinary: Reports No symptoms Neurological: Reports No symptoms Musculoskeletal: Reports No symptoms Skin: Reports No symptoms Immunology: Reports No symptoms Hematology: Reports No symptoms Endocrine: Reports No symptoms Psychiatric: Reports No symptoms Habits: Reports Tobacco use Allergies Allergies Allergy/AdvReac Type Severity Reaction Status Date / Time levofloxacin [From Levaquin] AdvReac Unknown Unknown Verified 02/05/22 18:58 ipratropium [From Atrovent] AdvReac Verified 02/05/22 18:58 [facility] Medical History (Updated 04/16/22 @ 16:27 by CONI MARTINEZ MD) Anxiety Arteriosclerosis Blood disease BPH (benign prostatic hyperplasia) CAD (coronary artery disease) Cancer of skin of external nose (~10/04/20) Chronic bronchitis Chronic hyponatremia Chronic respiratory failure CKD (chronic kidney disease) stage 3, GFR 30-59 ml/min COPD (chronic obstructive pulmonary disease) Diverticulosis Emphysema of lung Enlarged heart Gastroesophageal reflux disease Hypertension Osteoarthritis Oxygen dependent Prostate enlargement Sciatica, right side Seasonal allergies Secondary polycythemia Sleep apnea TMJ (temporomandibular joint disorder) Surgical History History of bilateral cataract extraction History of coronary artery stent placement History of tonsillectomy Family History Mother Obstetric anesthesia problems Emphysema of lung Social History Smoking and tobacco status: Former smoker History of recent travel: No Medications Medications: Medications Generic Name Dose Route Start Last Admin Trade Name Freq PRN Reason Stop Dose Admin Sodium Chloride 1 syr 04/16/22 14:46 0.9% Sodium Chloride 10 Ml Disp.Syrin IVF PRN PRN To flush IV Body Composition Height: 6 ft Weight: 94.347 kg Body Mass Index (BMI): 28.2 Vital Signs Temperature: 98 F Pulse Rate: 82 Respiratory Rate: 22 Blood Pressure: 158/72 O2 Sat by Pulse Oximetry: 92 Physical Examination Appearance: Reports Ill-appearing (chronically ill appearing), No pain distress, Well-nourished and Other (Patient mildly tachypneic.) Ill-appearing: Moderate Pain Distress: None Eyes: Reports ABDIAS and EOMI ENT: Reports Nose normal and Oropharynx normal Neck: Supple Respiratory: Reports Airway patent, Breath sounds clear, Breath sounds equal and Breath sounds diminished Cardiovascular: Reports RRR, No rub, No murmur and Other (moderate peripheral edema) GI/: Reports Soft, Nontender, No masses, Bowel sounds normal and No Organomegaly Musculoskeletal: Reports Normal strength and ROM intact Skin: Reports Warm and Dry Neurological: Reports Motor intact, Alert and Oriented Psychiatric: Reports Affect appropriate and Mood appropriate Lab/Tests/Diagnostic Imaging Lab/Tests/Diagnostic Imaging: Lab Review 04/16/22 04/16/22 04/16/22 14:58 14:58 15:11 WBC 4.24 RBC 4.11 L Hgb 12.5 L Hct 37.2 L MCV 90.5 MCH 30.4 MCHC 33.6 RDW Coeff of Bhaskar 13.0 Plt Count 141 Immature Gran % (Auto) 0.2 Neut % (Auto) 57.2 Lymph % (Auto) 27.1 Jack % (Auto) 11.8 H Eos % (Auto) 3.5 Baso % (Auto) 0.2 Neut # (Auto) 2.4 Lymph # (Auto) 1.2 Jack # (Auto) 0.5 Eos # (Auto) 0.2 Baso # (Auto) 0.0 Immature Gran # (Auto) 0.0 Puncture Site Rrad Base Excess 9.8 H O2 Saturation 90.9 L ABG pH 7.38 ABG pCO2 59.0 H ABG pO2 62.0 L ABG HCO3 34.9 H ABG Total CO2 36.7 H Albino Test Pos Hemoglobin 1.1 Oxyhemoglobin 91.1 L Carboxyhemoglobin 2.1 H Total Hemoglobin 12.8 O2 Delivery Device Cannula Oxygen Liter Flow 3.00 Sodium 130.6 L Potassium 4.01 Chloride 90.2 L Carbon Dioxide 35.5 H Anion Gap 8.91 BUN 18.2 Creatinine 1.06 Estimated GFR (MDRD) 67.00 BUN/Creatinine Ratio 17.16 Glucose 121.3 H Calcium 9.18 Total Bilirubin 0.75 AST 24.5 ALT 17.7 Alkaline Phosphatase 55.0 L Troponin I < 0.012 NT-Pro-B Natriuret Pep 102.000 Total Protein 6.86 Albumin 4.27 Globulin 2.59 Albumin/Globulin Ratio 1.64 Influ A Molecular Assay Influ B Molecular Assay 04/16/22 15:54 WBC RBC Hgb Hct MCV MCH MCHC RDW Coeff of Bhaskar Plt Count Immature Gran % (Auto) Neut % (Auto) Lymph % (Auto) Jack % (Auto) Eos % (Auto) Baso % (Auto) Neut # (Auto) Lymph # (Auto) Jack # (Auto) Eos # (Auto) Baso # (Auto) Immature Gran # (Auto) Puncture Site Base Excess O2 Saturation ABG pH ABG pCO2 ABG pO2 ABG HCO3 ABG Total CO2 Albino Test Hemoglobin Oxyhemoglobin Carboxyhemoglobin Total Hemoglobin O2 Delivery Device Oxygen Liter Flow Sodium Potassium Chloride Carbon Dioxide Anion Gap BUN Creatinine Estimated GFR (MDRD) BUN/Creatinine Ratio Glucose Calcium Total Bilirubin AST ALT Alkaline Phosphatase Troponin I NT-Pro-B Natriuret Pep Total Protein Albumin Globulin Albumin/Globulin Ratio Influ A Molecular Assay Negative by naat Influ B Molecular Assay Positive by naat H Orders Category Date Time Status ADMIT PATIENT INPATIENT .TO [facility] (MONITORED BED) ADMISSION 04/16/22 16:14 Ordered ABG DRAW REQUEST Stat CARDIO 04/16/22 14:46 Completed EKG-(ED ONLY) Stat CARDIO 04/16/22 14:46 Completed NEBULIZER TREATMENT Routine CARDIO 04/16/22 16:17 Ordered NEBULIZER TREATMENT Stat CARDIO 04/16/22 14:47 Completed OXYGEN Routine CARDIO 04/16/22 16:14 Ordered ACTIVITY .Up With Assistance CARE 04/16/22 16:14 Ordered INTAKE & OUTPUT Q8HR CARE 04/16/22 16:14 Ordered TELEMETRY MONITORING TELE CARE 04/16/22 16:14 Ordered VITAL SIGNS Q4HR CARE 04/16/22 16:14 Ordered VITAL SIGNS Q8HR CARE 04/16/22 16:14 Ordered REGULAR DIET DIETARY 04/16/22 Dinner Ordered Saline Lock [ED IV/MEDIPORT/POWERPORT] .ONCE EMERGENCY 04/16/22 14:46 Active ABG COOX Stat LAB 04/16/22 15:11 Completed CBC W/ AUTO DIFF Q3D LAB 04/17/22 06:00 Ordered CBC W/ AUTO DIFF Stat LAB 04/16/22 14:58 Completed CBC W/ AUTO DIFF Stat LAB 04/16/22 16:14 Ordered CMP [COMPREHENSIVE METABOLIC PANEL] Q3D LAB 04/17/22 06:00 Ordered CMP [COMPREHENSIVE METABOLIC PANEL] Stat LAB 04/16/22 14:58 Completed CMP [COMPREHENSIVE METABOLIC PANEL] Stat LAB 04/16/22 16:19 Ordered COVID [SARS COV-2 RNA RAPID BALWINDER] Stat LAB 04/16/22 15:54 Received FLU A & B MOLECULAR [FLU A/B MOLECULAR] Stat LAB 04/16/22 15:54 Received NT-PROBNP Stat LAB 04/16/22 14:58 Completed TROPONIN I Stat LAB 04/16/22 14:58 Completed 0.9 % Sodium Chloride [Saline Flush] MEDS 04/16/22 14:46 Active 1 syr IVF PRN PRN Azithromycin Inj [Zithromax] 500 mg MEDS 04/16/22 16:30 Ordered 0.9 % Sodium Chloride [Sodium Chloride] 250 ml IV DAILY Ceftriaxone Sodium [Rocephin 2 gm Vial] 2 gm MEDS 04/16/22 16:30 Ordered 0.9 % Sodium Chloride [Sodium Chloride 100Ml] 100 ml IV DAILY Ipratropium/Albuterol Neb [Duoneb] MEDS 04/16/22 14:46 Discontinued 3 ml NEB ONCE STA Ipratropium/Albuterol Neb [Duoneb] MEDS 04/16/22 18:00 Ordered 3 ml NEB RTQ4H Methylprednisolone Sod Succ/Pf [Solu-Medrol 125 mg] MEDS 04/16/22 14:46 Discontinued 125 mg IVP ONCE STA Methylprednisolone Sod Succ/Pf [Solu-Medrol 125 mg] MEDS 04/16/22 18:00 Ordered 125 mg IVP Q6HR RESUSCITATION STATUS Routine OTHERS 04/16/22 16:14 Ordered CXR [CHEST, 1V AP ONLY] Stat RADS 04/16/22 14:46 Completed CXR [CHEST, 1V AP ONLY] Stat RADS 04/17/22 07:19 Ordered Medications Generic Name Dose Route Start Last Admin Trade Name Freq PRN Reason Stop Dose Admin Sodium Chloride 1 syr 04/16/22 14:46 0.9% Sodium Chloride 10 Ml Disp.Syrin IVF PRN PRN To flush IV Discontinued Medications Generic Name Dose Route Start Last Admin Trade Name Freq PRN Reason Stop Dose Admin Albuterol/Ipratropium 3 ml 04/16/22 14:46 04/16/22 15:33 Ipratropium/Albuterol Vial.Neb NEB 04/16/22 14:47 3 ml ONCE STA Administration Methylprednisolone Sodium Succinate 125 mg 04/16/22 14:46 04/16/22 15:15 Methylprednisolone Sod Succ/Pf 125 Mg/2 Ml Vial IVP 04/16/22 14:47 125 mg ONCE STA Administration Assessment (1) COPD with acute exacerbation: Status: Acute Code(s): J44.1 - Chronic obstructive pulmonary disease with (acute) exacerbation SNOMED Code(s): 746914426 (2) Pneumonia: Status: Acute Code(s): J18.9 - Pneumonia, unspecified organism SNOMED Code(s): 704911304 Plan Plan: Patient will receive IV steroids, IV antibiotics and nebulizer treatments.
[2022-04-16] MEDS ORDERED: ROCEPHIN 2 GM VIAL 2 GM in SODIUM CHLORIDE 100ML 100 ML IV SCH (16:30)
[2022-04-16 16:38] LABS: SARS COV-2 RNA RAPID NAAT NEGATIVE (NEGATIVE)
[2022-04-16] MEDS: ZITHROMAX 500 MG in SODIUM CHLORIDE 250 ML IV SCH (16:46)
[2022-04-16] MEDS: DUONEB NEB SCH ×2 (17:03→21:50)
[2022-04-16] MEDS ORDERED: ROCEPHIN 2 GM VIAL ONE (17:09)
[2022-04-16 17:15] VITALS: BMI 28.6
[2022-04-16] MEDS ORDERED: ATROPINE SULFATE PFS IVP PRN (17:18)
[2022-04-16] MEDS ORDERED: NITROSTAT SL PRN (17:18)
[2022-04-16] MEDS ORDERED: VASOTEC IV IVP PRN (17:34)
[2022-04-16] MEDS ORDERED: VENTOLIN HFA (PER PUFF-WITH SPACER) IH PRN (17:37)
[2022-04-16] MEDS: SOLU-MEDROL 125 MG IVP SCH ×2 (17:51→23:33)
[2022-04-16] MEDS ORDERED: ARTIFICIAL TEARS DROPS OP PRN (18:09)
[2022-04-16 20:15] LABS: BILIRUBIN,URINE Negative (NEGATIVE); CLARITY,URINE Clear (CLEAR); COLOR,URINE Yellow (YELLOW); GLUCOSE, URINE (UA) Negative (NEGATIVE); KETONES,URINE Negative (NEGATIVE); LEUKOCYTE ESTERASE ,URINE Negative (NEGATIVE); NITRITE,URINE Negative (NEGATIVE); PROTEIN,URINE Negative (NEGATIVE); URINE, BLOOD Negative (NEGATIVE); UROBILINOGEN,URINE 0.2 (0.2)
[2022-04-16] MEDS: ROCEPHIN 1 GM/50 ML D5W 1 GM/50 ML BAG IV SCH (20:27)
[2022-04-16] MEDS: ASPIRIN EC PO SCH (20:31)
[2022-04-16] MEDS: XANAX PO SCH (20:31)
[2022-04-16] MEDS: COREG PO SCH (20:31)
[2022-04-16] MEDS: FLOMAX PO SCH (20:31)
[2022-04-16] MEDS: MINOXIDIL PO SCH (20:31)
[2022-04-16] MEDS: MUCINEX PO SCH (20:31)
[2022-04-16] MEDS: CATAPRES PO SCH (20:32)
[2022-04-16] MEDS: TAMIFLU CAPSULE PO SCH (20:32)
[2022-04-16] MEDS: ZANAFLEX PO SCH (20:32)
[2022-04-16] MEDS: COZAAR PO SCH (20:32)
[2022-04-16] MEDS: MIRALAX PO SCH (20:33)
[2022-04-16] MEDS: ASTELIN 0.1% NAS SCH (20:33)
[2022-04-16] MEDS ORDERED: PULMICORT 0.5 MG/2 ML NEB SCH (21:00)
[2022-04-16] MEDS: TYLENOL PO PRN (23:40)
[2022-04-17] MEDS: DUONEB NEB SCH ×4 (01:05→14:40)
[2022-04-17 05:17] LABS: HEMATOCRIT 37.6 % (42.0-52.0); HEMOGLOBIN 12.9 g/dl (14.0-18.0); IMMATURE GRANULOCYTE % (AUTO) 0.3 % (0.0-5.0); LYMPHOCYTES # (AUTO) 0.7 K/uL (0.60-3.4); LYMPHOCYTES % (AUTO) 19.3 (10.0-50.0); MEAN CORPUSCULAR HGB CONC 34.3 (31.8-35.4); MEAN CORPUSCULAR VOLUME 90.4 fl (80.0-94.0); MONOCYTES % (AUTO) 0.6 (0-10); NEUTROPHILS # (AUTO) 2.7 K/ul (2.0-6.9); NEUTROPHILS % (AUTO) 79.8 % (42.2-75.2); PLATELET COUNT 148 10^3/uL (140-440); RDW COEFFICIENT OF VARIATION 12.8 % (11.6-14.8); RED BLOOD COUNT 4.16 10^6/ul (4.70-6.10); WHITE BLOOD COUNT 3.37 K/ul (4.2-10.2)
[2022-04-17] MEDS: SOLU-MEDROL 125 MG IVP SCH ×4 (05:17→23:50)
[2022-04-17 05:47] LABS: ALANINE AMINOTRANSFERASE 17.1 U/L (0-50); ALBUMIN 3.97 g/dL (3.5-5.0); ALKALINE PHOSPHATASE 55.7 U/L (56-119); ASPARTATE AMINO TRANSFERASE 26.1 U/L (17-59); BILIRUBIN,TOTAL 0.45 mg/dL (0.2-1.3); BLOOD UREA NITROGEN 18.8 mg/dL (9-20); CALCIUM 9.02 mg/dL (8.4-10.2); CARBON DIOXIDE 31.5 mmol/L (22-30.0); CHLORIDE 92.7 mmol/L (98-107); CREATININE 0.89 mg/dL (0.60-1.10); GLUCOSE 148.4 mg/dL (74-106); POTASSIUM 4.32 mmol/L (3.5-5.1); SODIUM 129.4 mmol/L (134.5-145); TOTAL PROTEIN 6.59 g/dL (6.3-8.2)
[2022-04-17] MEDS ORDERED: LASIX TAB PO SCH ×2 (06:30→09:00)
[2022-04-17] MEDS: TYLENOL PO PRN ×2 (07:26→22:30)
[2022-04-17] MEDS ORDERED: SODIUM CHLORIDE 1,000 ML IV SCH (08:30)
[2022-04-17] MEDS: ROCEPHIN 1 GM/50 ML D5W 1 GM/50 ML BAG IV SCH (08:49)
--- NOTE | 2022-04-17 09:20 | PCM.PROG ---
Attending Provider: ATTENDING PROVIDER: Dr. HAILEY SCHULTE MD This patient is seen with Debbie Garcia, Nurse Practitioner. DATE OF SERVICE: 04/17/22 SUBJECTIVE: This 81 year old /WHITE M was hospitalized 04/16/22. The patient is resting comfortably. He is complaining of leg pain, right great toe pain and sore throat. Most symptoms consistent with influenza. He states he is having difficulty starting urine stream, takes Flomax. He feels Trilogy machine was leaking. No fever. Symptoms started 3 days ago. REVIEW OF SYSTEMS: CONSTITUTIONAL: Weakness. No night sweats. No fatigue, malaise, lethargy. No fever or chills. HEENT: Eyes: No visual changes. No eye pain. No eye discharge. ENT: No runny nose. No epistaxis. No sinus pain. No odynophagia. No congestion. RESPIRATORY: Cough and shortness of breath. No hemoptysis. CARDIOVASCULAR: No angina symptoms. No CHF symptoms. No atypical chest pain for CAD. No palpitations. No orthopnea.. GASTROINTESTINAL: No abdominal pain. No nausea or vomiting. No diarrhea or constipation. No hematemesis. No hematochezia. GENITOURINARY: Difficulty starting stream. No urgency. No frequency. No dysuria. No hematuria. No obstructive symptoms. No discharge. No pain. No significant abnormal bleeding. MUSCULOSKELETAL: Achiness. Leg pain. Right great toe pain. No musculoskeletal pain; no joint swelling. NEUROLOGICAL: Awake, alert, oriented to time, place and person. No headache. No neck pain. No syncope. No seizures. No dizziness. PSYCHIATRIC: Anxiety. No depression. No suicidal thoughts. No homicidal thoughts. SKIN: No rash. No lesions. No wounds. ENDOCRINE: No unexplained weight loss. No weight gain. HEMATOLOGIC/LYMPHATIC: No anemia. No purpura. No petechiae. No prolonged or excessive bleeding. No palpable lymph nodes. PHYSICAL EXAMINATION: GENERAL: The patient is awake, alert and oriented, lying/sitting in bed in no distress. VITAL SIGNS: Temperature 96.7 F, Pulse 88, Respiratory Rate 20, BP 130/77, Pulse Ox 92% HEENT: Head normocephalic, atraumatic. Eyes: Extraocular muscles are intact. Pupils are equal, round and reactive to light and accommodation. Ears: No lesi ons. Nose appeared normal. Throat: No exudate or erythema. NECK: Supple. No JVD, no carotid bruit. No lymphadenopathy or thyromegaly. LUNGS: Severely diminished breath sounds. Clear to auscultation. Percussion note normal. Chest symmetrical. HEART: S1, S2, no S3. No murmurs. No cyanosis or clubbing. No ascites. Pulses: Dorsalis pedis and posterior tibial pulses +1 to +2 both sides. ABDOMEN: Soft. Non-tender. Bowel sounds active. No CVA tenderness. No mass felt. EXTREMITIES: No edema. Full range of motion of all extremities, equal. NEUROLOGIC: No focal deficit. Cranial nerves II through XII are grossly intact. No headache. No double vision. SKIN: Not dry. Intact. Turgor-normal. LYMPHATIC: No palpable lymph nodes/no lymphedema. MUSCULOSKELETAL: Normal joints with no swelling. Muscle tone is normal. LAB REVIEW: 04/17/22 05:00 04/17/22 05:00 04/17/22 05:00: Sodium 129.4 L, Potassium 4.32, Chloride 92.7 L, Carbon Dioxide 31.5 H, Anion Gap 9.52, BUN 18.8, Creatinine 0.89, Estimated GFR (MDRD) 82.00, BUN/Creatinine Ratio 21.12, Glucose 148.4 H, Calcium 9.02, Total Bilirubin 0.45, AST 26.1, ALT 17.1, Alkaline Phosphatase 55.7 L, Total Protein 6.59, Albumin 3.97, Globulin 2.62, Albumin/Globulin Ratio 1.51 04/17/22 05:00: WBC 3.37 L, RBC 4.16 L, Hgb 12.9 L, Hct 37.6 L, MCV 90.4, MCH 31.0, MCHC 34.3, RDW Coeff of Bhaskar 12.8, Plt Count 148, Immature Gran % (Auto) 0.3, Neut % (Auto) 79.8 H, Lymph % (Auto) 19.3, Mcminn % (Auto) 0.6, Eos % (Auto) 0.0, Baso % (Auto) 0.0, Neut # (Auto) 2.7, Lymph # (Auto) 0.7, Mcminn # (Auto) 0.0 L, Eos # (Auto) 0.0, Baso # (Auto) 0.0, Immature Gran # (Auto) 0.0 04/16/22 20:05: Urine Color Yellow, Urine Clarity Clear, Urine pH 6.0, Ur Specific [place] 1.015, Urine Protein Negative, Urine Glucose (UA) Negative, Urine Ketones Negative, Urine Blood Negative, Urine Nitrite Negative, Urine Bilirubin Negative, Urine Urobilinogen 0.2, Ur Leukocyte Esterase Negative 04/16/22 15:54: Influ A Molecular Assay Negative by naat, Influ B Molecular Assay Positive by naat H 04/16/22 15:54: SARS CoV-2 RNA Rapid BALWINDER Negative 04/16/22 15:11: Puncture Site Rrad, Base Excess 9.8 H, O2 Saturation 90.9 L, ABG pH 7.38, ABG pCO2 59.0 H, ABG pO2 62.0 L, ABG HCO3 34.9 H, ABG Total CO2 36.7 H, Albino Test Pos, Hemoglobin 1.1, Oxyhemoglobin 91.1 L, Carboxyhemoglobin 2.1 H, Total Hemoglobin 12.8, O2 Delivery Device Cannula, Oxygen Liter Flow 3.00 04/16/22 14:58: Sodium 130.6 L, Potassium 4.01, Chloride 90.2 L, Carbon Dioxide 35.5 H, Anion Gap 8.91, BUN 18.2, Creatinine 1.06, Estimated GFR (MDRD) 67.00, BUN/Creatinine Ratio 17.16, Glucose 121.3 H, Calcium 9.18, Total Bilirubin 0.75, AST 24.5, ALT 17.7, Alkaline Phosphatase 55.0 L, Troponin I < 0.012, NT-Pro-B Na triuret Pep 102.000, Total Protein 6.86, Albumin 4.27, Globulin 2.59, Albumin/Globulin Ratio 1.64 04/16/22 14:58: WBC 4.24, RBC 4.11 L, Hgb 12.5 L, Hct 37.2 L, MCV 90.5, MCH 30.4, MCHC 33.6, RDW Coeff of Bhaskar 13.0, Plt Count 141, Immature Gran % (Auto) 0.2, Neut % (Auto) 57.2, Lymph % (Auto) 27.1, Mcminn % (Auto) 11.8 H, Eos % (Auto) 3.5, Baso % (Auto) 0.2, Neut # (Auto) 2.4, Lymph # (Auto) 1.2, Mcminn # (Auto) 0.5, Eos # (Auto) 0.2, Baso # (Auto) 0.0, Immature Gran # (Auto) 0.0 ASSESSMENT: Please see below. 1. Influenza B 2. Bilateral pneumonia 3. End-stage COPD, oxygen dependent 4. Generalized weakness 5. Myositis 6. Bilateral pneumonia 7. End-stage COPD, oxygen dependent 8. Generalized weakness 9. Urinary retention 10. Right great toe pain 11. Anxiety 12. Hypertension PLAN: 1. 1 bag NS @75 mL/hr 2. Chloraseptic spray to throat 3. Uric acid level 4 Terazosin 5 mg in a.m. 5. X-ray of right great toe 6. Afrin nasal spray at nighttime before Trilogy 7. Incentive spirometry 8. Monitor output 9. Continue Duonebs Plan and coordination of the patient's care discussed in the presence of Cad Manager and nurse. TIME SPENT: 35 MINUTES CONDITION: Stable SCRIBED BY: BEAR HOLLEY Chocolate Maker scribed while in presence of service performed by Dr. Schulte/Debbie Garcia APRN on 04/17/22 ([id number])
[2022-04-17] MEDS: ANORO ELLIPTA 62.5-25 MCG INH IH SCH (09:26)
[2022-04-17] MEDS: MIRALAX PO SCH ×2 (09:26→20:23)
[2022-04-17] MEDS: MUCINEX PO SCH ×2 (09:26→20:25)
[2022-04-17] MEDS: ZANAFLEX PO SCH ×2 (09:27→20:27)
[2022-04-17] MEDS: COZAAR PO SCH ×2 (09:27→20:23)
[2022-04-17] MEDS: XANAX PO SCH ×3 (09:27→20:25)
[2022-04-17] MEDS: HYTRIN PO SCH (09:27)
[2022-04-17] MEDS: COREG PO SCH ×2 (09:27→17:40)
[2022-04-17] MEDS: LEXAPRO PO SCH (09:28)
[2022-04-17] MEDS: TAMIFLU CAPSULE PO SCH ×2 (09:28→20:23)
[2022-04-17] MEDS: PROTONIX PO SCH (09:28)
[2022-04-17] MEDS: NORVASC PO SCH (09:28)
[2022-04-17] MEDS: MINOXIDIL PO SCH ×2 (09:28→20:25)
[2022-04-17] MEDS: ASTELIN 0.1% NAS SCH ×2 (09:28→20:26)
[2022-04-17] MEDS: CHLORASEPTIC SPRAY MM PRN ×2 (09:36→20:32)
[2022-04-17] MEDS: ZITHROMAX 500 MG in SODIUM CHLORIDE 250 ML IV SCH (10:05)
--- NOTE | 2022-04-17 10:13 | DI ---
EXAM: Exam of the right foot TECHNIQUE: Three views of the first digit were obtained HISTORY: Pain COMPARISON: None. FINDINGS: Mild arthropathy at the first MTP joint. No fracture or dislocation. No bony destruction . Normal soft tissues. IMPRESSION: Mild arthropathy. No acute findings.
[2022-04-17] MEDS: CATAPRES PO SCH ×2 (14:21→20:25)
[2022-04-17] MEDS ORDERED: AFRIN NASAL SPRAY NAS SCH (17:00)
[2022-04-17] MEDS: ALBUTEROL 0.083% NEB NEB SCH (20:15)
[2022-04-17] MEDS: PULMICORT 0.5 MG/2 ML NEB SCH (20:15)
[2022-04-17] MEDS: ASPIRIN EC PO SCH (20:23)
[2022-04-17] MEDS: FLOMAX PO SCH (20:25)
[2022-04-17] MEDS: AFRIN NASAL SPRAY NAS SCH (20:36)
[2022-04-18] MEDS: PULMICORT 0.5 MG/2 ML NEB SCH ×2 (04:45→19:10)
[2022-04-18] MEDS: ALBUTEROL 0.083% NEB NEB SCH ×4 (04:45→19:10)
[2022-04-18 05:08] LABS: HEMATOCRIT 34.3 % (42.0-52.0); HEMOGLOBIN 11.6 g/dl (14.0-18.0); IMMATURE GRANULOCYTE % (AUTO) 0.4 % (0.0-5.0); LYMPHOCYTES # (AUTO) 0.7 K/uL (0.60-3.4); MEAN CORPUSCULAR HGB CONC 33.8 (31.8-35.4); MEAN CORPUSCULAR VOLUME 91.7 fl (80.0-94.0); MONOCYTES # (AUTO) 0.2 K/uL (0.4-2.0); MONOCYTES % (AUTO) 3.1 (0-10); NEUTROPHILS # (AUTO) 4.6 K/ul (2.0-6.9); NEUTROPHILS % (AUTO) 84.5 % (42.2-75.2); PLATELET COUNT 147 10^3/uL (140-440); RED BLOOD COUNT 3.74 10^6/ul (4.70-6.10); WHITE BLOOD COUNT 5.43 K/ul (4.2-10.2)
[2022-04-18 05:22] LABS: ALANINE AMINOTRANSFERASE 16.5 U/L (0-50); ALBUMIN 3.94 g/dL (3.5-5.0); ALKALINE PHOSPHATASE 44.8 U/L (56-119); ASPARTATE AMINO TRANSFERASE 20.9 U/L (17-59); BILIRUBIN,TOTAL 0.33 mg/dL (0.2-1.3); BLOOD UREA NITROGEN 30.2 mg/dL (9-20); CALCIUM 8.42 mg/dL (8.4-10.2); CARBON DIOXIDE 29.2 mmol/L (22-30.0); CHLORIDE 91.2 mmol/L (98-107); CREATININE 1.07 mg/dL (0.60-1.10); POTASSIUM 4.15 mmol/L (3.5-5.1); SODIUM 127.5 mmol/L (134.5-145); TOTAL PROTEIN 6.36 g/dL (6.3-8.2)
[2022-04-18] MEDS: LASIX TAB PO SCH (05:44)
[2022-04-18] MEDS: SOLU-MEDROL 125 MG IVP SCH ×4 (05:44→23:11)
[2022-04-18] MEDS: PROTONIX PO SCH (09:17)
[2022-04-18] MEDS ORDERED: ZOFRAN 4 MG/2 ML IVP PRN (09:18)
[2022-04-18] MEDS: HYTRIN PO SCH (09:19)
[2022-04-18] MEDS: XANAX PO SCH ×3 (09:19→21:17)
[2022-04-18] MEDS: MINOXIDIL PO SCH ×2 (09:19→21:17)
[2022-04-18] MEDS: ZANAFLEX PO SCH ×2 (09:20→21:17)
[2022-04-18] MEDS: TAMIFLU CAPSULE PO SCH ×2 (09:20→21:17)
[2022-04-18] MEDS: LEXAPRO PO SCH (09:21)
[2022-04-18] MEDS: NORVASC PO SCH (09:21)
[2022-04-18] MEDS: MUCINEX PO SCH ×2 (09:22→21:16)
[2022-04-18] MEDS: COZAAR PO SCH ×2 (09:22→21:16)
[2022-04-18] MEDS: COREG PO SCH ×2 (09:23→16:21)
[2022-04-18] MEDS: ZITHROMAX 500 MG in SODIUM CHLORIDE 250 ML IV SCH (09:29)
[2022-04-18] MEDS: MIRALAX PO SCH ×2 (09:29→21:18)
[2022-04-18] MEDS: ANORO ELLIPTA 62.5-25 MCG INH IH SCH (09:34)
[2022-04-18] MEDS: ASTELIN 0.1% NAS SCH ×2 (09:35→21:18)
[2022-04-18] MEDS: ROCEPHIN 1 GM/50 ML D5W 1 GM/50 ML BAG IV SCH (11:39)
[2022-04-18] MEDS: CATAPRES PO SCH ×2 (14:31→21:17)
--- NOTE | 2022-04-18 14:36 | PBEGJOFF ---
DATE OF SERVICE: 04/16/22 REASON FOR HOSPITALIZATION: Shortness of breath HISTORY OF PRESENT ILLNESS: 81 year old white male came to the emergency room with shortness of breath and also indicated that his saturation dropped to 85% whenever he goes to the bathroom. He is also short of breath on minimal exertion more than usual and coughing with yellowish sputum production. Duration of these symptoms have been for five days. REVIEW OF SYSTEMS: CONSTITUTIONAL: Weakness and fatigue. HEENT: Eyes: No visual changes. No eye pain. No eye discharge. ENT: No runny nose. No epistaxis. No sinus pain. No sore throat. No odynophagia. No ear pain. No congestion. RESPIRATORY: Cough with congestion with yellowish sputum production. CARDIOVASCULAR: Shortness of breath on exertion. PND. No orthopnea. GASTROINTESTINAL: Poor appetite but no nausea and no vomiting. GENITOURINARY: No urgency. No frequency. No dysuria. No hematuria. No obstructive symptoms. No discharge. No pain. No significant abnormal bleeding. MUSCULOSKELETAL: No musculoskeletal pain. No joint swelling. No arthritis. NEUROLOGICAL: No headache. No neck pain. No syncope. No seizures. No dizziness. PSYCHIATRIC: Not anxious. No depression. No suicidal thoughts. No homicidal thoughts. SKIN: No rash. No lesions. No wounds. ENDOCRINE: No unexplained weight loss. No weight gain. HEMATOLOGIC/LYMPHATIC: No anemia. No purpura. No petechiae. No prolonged or excessive bleeding. No palpable lymph nodes. MEDICATIONS: Aspirin Tamsulosin Albuterol Budesonide Alprazolam Clonidine Losartan Minoxidil Carvedilol Lexapro Lasix ALLERGIES: Levofloxacin and Atrovent MEDICAL/SURGICAL PROBLEMS: History of severe chronic lung disease on home oxygen, end stage History of bronchial asthma Coronary artery disease Hypertension Dyslipidemia Chronic respiratory failure Anxiety disorder PHYSICAL EXAMINATION: GENERAL: Oriented to time, place and person. VITAL SIGNS: Temperature 98, pulse 73, respiratory rate 20, blood pressure 170/78, pulse ox 92% on two liters HEENT: Head normocephalic, atraumatic. Face looks swollen. Eyes: Extraocular muscles are intact. Pupils are equal, round and reactive to light and accommodation. Ears: No lesions. Nose appeared normal. Throat: No exudate or erythema. NECK: Supple. No JVD, no carotid bruit. No lymphadenopathy or thyromegaly. LUNGS: Decreased breath sounds. Good air entry. Mild wheeze, expiratory. HEART: S1, S2, no S3. No murmur. No cyanosis or clubbing. No ascites. Pulses: Dorsalis pedis and posterior tibial pulses +1 to +2 bilaterally. ABDOMEN: Soft. Nontender. Bowel sounds active. No CVA tenderness. No mass felt. EXTREMITIES: Trace pedal edema. Full range of motion of all extremities, equal. NEUROLOGIC: No focal deficit. Cranial nerves II through XII are grossly intact. No headache, no double vision or headache. SKIN: Not dry. Intact. Turgor - normal. LYMPHATIC: No palpable lymph nodes/no lymphedema. MUSCULOSKELETAL: Normal joints with no swelling. Muscle tone is normal. EKG showed sinus rhythm, no acute changes. PO 62, PCO2 59, PCH 7.38 with 91% saturation, ProBNP 102, troponin negative. Hemoglobin 12.5, hematocrit 37, WBC 4,000, normal differential, creatinine 1, BUN 18, potassium 4. ASSESSMENT: Acute COPD exacerbation Severe chronic lung disease with chronic respiratory failure on home oxygen Coronary artery disease Hypertension Dyslipidemia Chronic anxiety syndrome PLAN: 1. Given antibiotics and steroids 2. Telemetry, nebs treatment 3. Patient is advised to join the pulmonary rehab 4. He needs to lose 5-10 pounds, exercises discussed Condition: Stable Code status: DNR TIME SPENT: More than 75 minutes. NITIN
--- NOTE | 2022-04-18 14:50 | PN ---
DATE OF SERVICE: 04/16/22 SUBJECTIVE: Patient was seen and examined in the emergency room by attending. The patient has the possibility of pneumonitis. Blood gases were practially acceptable except for CO2 retention, well compensated respiratory acidosis . He is coughing up yellowish sputum. He is influenza B positive. REVIEW OF SYSTEMS: CONSTITUTIONAL: No night sweats. No fatigue, malaise, lethargy. No fever or chills. HEENT: Eyes: No visual changes. No eye pain. No eye discharge. ENT: No runny nose. No epistaxis. No sinus pain. No sore throat. No odynophagia. No congestion. RESPIRATORY: No cough, no congestion. No hemoptysis. No shortness of breath. CARDIOVASCULAR: No angina symptoms. No CHF symptoms. No atypical chest pain for CAD. No palpitations. No PND. No orthopnea. GASTROINTESTINAL: No abdominal pain. No nausea or vomiting. No diarrhea or constipation. No hematemesis. No hematochezia. GENITOURINARY: No urgency. No frequency. No dysuria. No hematuria. No obstructive symptoms. No discharge. No pain. No significant abnormal bleeding. MUSCULOSKELETAL: No musculoskeletal pain; no joint swelling. NEUROLOGICAL: No headache. No neck pain. No syncope. No seizures. No dizziness. PSYCHIATRIC: Not anxious. No depression. No suicidal thoughts. No homicidal thoughts. SKIN: No rash. No lesions. No wounds. ENDOCRINE: No unexplained weight loss. No weight gain. HEMATOLOGIC/LYMPHATIC: No anemia. No purpura. No petechiae. No prolonged or excessive bleeding. No palpable lymph nodes. PHYSICAL EXAMINATION: HEENT: Head normocephalic, atraumatic. Eyes: Extraocular muscles are intact. Pupils are equal, round and reactive to light and accommodation. Ears: No lesions. Nose appeared normal. Throat: No exudate or erythema. NECK: Supple. No JVD, no carotid bruit. No lymphadenopathy or thyromegaly. LUNGS: Decreased breath sounds bilaterally. Percussion note normal. Chest symmetrical. HEART: S1, S2, no S3. No murmurs. No cyanosis or clubbing. No ascites. Pulses: Dorsalis pedis and posterior tibial pulses +1 to +2 bilaterally. ABDOMEN: Soft. Nontender. Bowel sounds active. No CVA tenderness. No mass felt. EXTREMITIES: No edema. Full range of motion of all extremities, equal. NEUROLOGIC: No focal deficit. Cranial nerves II through XII are grossly intact. No headache. No double vision. SKIN: Not dry. Intact. Turgor - normal. LYMPHATIC: No palpable lymph nodes/no lymphedema. MUSCULOSKELETAL: Normal joints with no swelling. Muscle tone is normal. ASSESSMENT: COPD exacerbation with possibility of pneumonitis PLAN: Admit the patient and put him on Rocephin, Zithromax, steroids Code Status: DNR TIME SPENT: More than 35 minutes. Plan and coordination of the patient's care discussed in the presence of nurse. NITIN
--- NOTE | 2022-04-18 14:56 | PN ---
DATE OF SERVICE: 04/17/22 SUBJECTIVE: 81 year old white male hospitalized with acute exacerbation of COPD, possible pneumonitis. Patient is feeling a lot better. REVIEW OF SYSTEMS: CONSTITUTIONAL: No night sweats. No fatigue, malaise, lethargy. No fever or chills. HEENT: Eyes: No visual changes. No eye pain. No eye discharge. ENT: No runny nose. No epistaxis. No sinus pain. No sore throat. No odynophagia. No congestion. RESPIRATORY: No cough, no congestion. No hemoptysis. No shortness of breath. CARDIOVASCULAR: No angina symptoms. No CHF symptoms. No atypical chest pain for CAD. No palpitations. No PND. No orthopnea. GASTROINTESTINAL: No abdominal pain. No nausea or vomiting. No diarrhea or constipation. No hematemesis. No hematochezia. GENITOURINARY: No urgency. No frequency. No dysuria. No hematuria. No obstructive symptoms. No discharge. No pain. No significant abnormal bleeding. MUSCULOSKELETAL: No musculoskeletal pain; no joint swelling. NEUROLOGICAL: No headache. No neck pain. No syncope. No seizures. No dizziness. PSYCHIATRIC: Not anxious. No depression. No suicidal thoughts. No homicidal thoughts. SKIN: No rash. No lesions. No wounds. ENDOCRINE: No unexplained weight loss. No weight gain. HEMATOLOGIC/LYMPHATIC: No anemia. No purpura. No petechiae. No prolonged or excessive bleeding. No palpable lymph nodes. PHYSICAL EXAMINATION: GENERAL: The patient is in no distress. HEENT: Head normocephalic, atraumatic. Eyes: Extraocular muscles are intact. Pupils are equal, round and reactive to light and accommodation. Ears: No lesions. Nose appeared normal. Throat: No exudate or erythema. NECK: Supple. No JVD, no carotid bruit. No lymphadenopathy or thyromegaly. LUNGS: Decreased breath sounds wtih good air entry. Percussion note normal. Chest symmetrical. HEART: S1, S2, no S3. No murmurs. No cyanosis or clubbing. No ascites. Pulses: Dorsalis pedis and posterior tibial pulses +1 to +2 bilaterally. ABDOMEN: Soft. Nontender. Bowel sounds active. No CVA tenderness. No mass felt. EXTREMITIES: No edema. Full range of motion of all extremities, equal. NEUROLOGIC: No focal deficit. Cranial nerves II through XII are grossly intact. No headache. No double vision. SKIN: Not dry. Intact. Turgor - normal. LYMPHATIC: No palpable lymph nodes/no lymphedema. MUSCULOSKELETAL: Normal joints with no swelling. Muscle tone is normal. Patient is on antibiotics, steroids. O2 saturation is 92% on two liters. Patient is improving. PLAN: He was again advised to go to pulmonary rehab. Patient was seen and examined with the nurse practitioner TIME SPENT: More than 35 minutes. Plan and coordination of the patient's care discussed in the presence of nurse. NITIN
[2022-04-18] MEDS: MYLANTA SUSP PO SCH ×2 (16:32→21:18)
[2022-04-18] MEDS: FLORASTOR PO SCH (21:17)
[2022-04-18] MEDS: ASPIRIN EC PO SCH (21:17)
[2022-04-18] MEDS: FLOMAX PO SCH (21:17)
[2022-04-18] MEDS: AFRIN NASAL SPRAY NAS SCH (21:19)
[2022-04-19] MEDS: PULMICORT 0.5 MG/2 ML NEB SCH ×2 (04:50→19:02)
[2022-04-19] MEDS: ALBUTEROL 0.083% NEB NEB SCH ×4 (04:50→19:02)
[2022-04-19] MEDS: SOLU-MEDROL 125 MG IVP SCH ×4 (06:09→23:44)
[2022-04-19] MEDS: LASIX TAB PO SCH (06:10)
[2022-04-19] MEDS ORDERED: PROTONIX PO SCH (06:30)
[2022-04-19] MEDS ORDERED: LASIX IVP ONE (08:34)
[2022-04-19] MEDS: MIRALAX PO SCH ×2 (09:18→20:29)
[2022-04-19] MEDS: MYLANTA SUSP PO SCH ×4 (09:19→20:29)
[2022-04-19] MEDS: COREG PO SCH ×2 (09:25→17:35)
[2022-04-19] MEDS: XANAX PO SCH ×3 (09:25→20:29)
[2022-04-19] MEDS: COZAAR PO SCH ×2 (09:26→20:30)
[2022-04-19] MEDS: MINOXIDIL PO SCH ×2 (09:26→20:30)
[2022-04-19] MEDS: FLORASTOR PO SCH ×2 (09:27→20:31)
[2022-04-19] MEDS: MUCINEX PO SCH ×2 (09:27→20:30)
[2022-04-19] MEDS: HYTRIN PO SCH (09:28)
[2022-04-19] MEDS: ZANAFLEX PO SCH ×2 (09:28→20:30)
[2022-04-19] MEDS: TAMIFLU CAPSULE PO SCH ×2 (09:28→20:30)
[2022-04-19] MEDS: LEXAPRO PO SCH (09:28)
[2022-04-19] MEDS: NORVASC PO SCH (09:29)
[2022-04-19] MEDS: ROCEPHIN 1 GM/50 ML D5W 1 GM/50 ML BAG IV SCH (09:37)
[2022-04-19] MEDS: ASTELIN 0.1% NAS SCH ×2 (09:38→20:31)
[2022-04-19] MEDS: ANORO ELLIPTA 62.5-25 MCG INH IH SCH (09:39)
--- NOTE | 2022-04-19 10:30 | PCM.PROG ---
Attending Provider: ATTENDING PROVIDER: Dr. HAILEY SCHULTE MD This patient is seen with Debbie Garcia, Nurse Practitioner. DATE OF SERVICE: 04/19/22 SUBJECTIVE: This 81 year old /WHITE M was hospitalized 04/16/22. The patient is complaining of more shortness of breath today and wheezing. She has been eating well. She is anxious as usual, no fever. REVIEW OF SYSTEMS: CONSTITUTIONAL: No night sweats. No fatigue, malaise, lethargy. No fever or chills. HEENT: Eyes: No visual changes. No eye pain. No eye discharge. ENT: No runny nose. No epistaxis. No sinus pain. No odynophagia. No congestion. RESPIRATORY: Wheeze and cough. No hemoptysis. Shortness of breath. CARDIOVASCULAR: No angina symptoms. No CHF symptoms. No atypical chest pain for CAD. No palpitations. No orthopnea.. GASTROINTESTINAL: Heartburn. No abdominal pain. No nausea or vomiting. No diarrhea or constipation. No hematemesis. No hematochezia. GENITOURINARY: No urgency. No frequency. No dysuria. No hematuria. No obstructive symptoms. No discharge. No pain. No significant abnormal bleeding. MUSCULOSKELETAL: Myalgias NEUROLOGICAL: Awake, alert, oriented to time, place and person. No headache. No neck pain. No syncope. No seizures. No dizziness. PSYCHIATRIC: Not anxious. No depression. No suicidal thoughts. No homicidal thoughts. SKIN: No rash. No lesions. No wounds. ENDOCRINE: No unexplained weight loss. No weight gain. HEMATOLOGIC/LYMPHATIC: No anemia. No purpura. No petechiae. No prolonged or excessive bleeding. No palpable lymph nodes. PHYSICAL EXAMINATION: GENERAL: The patient is awake, alert and oriented, lying/sitting in bed in no distress. VITAL SIGNS: Temperature 97.1 F, Pulse 73, Respiratory Rate 16, BP 119/68, Pulse Ox 90% HEENT: Head normocephalic, atraumatic. Eyes: Extraocular muscles are intact. Pupils are equal, round and reactive to light and accommodation. Ears: No lesions. Nose appeared normal. Throat: No exudate or erythema. NECK: Supple. No JVD, no carotid bruit. No lymphadenopathy or thyromegaly. LUNGS: Diminished breath sounds with bilateral inspiratory and expiratory wheezing. Percussion note normal. Chest symmetrical. HEART: S1, S2, no S3. No murmurs. No cyanosis or clubbing. No ascites. Pulses: Dorsalis pedis and posterior tibial pulses +1 to +2 both sides. ABDOMEN: Soft. Non-tender. Bowel sounds active. No CVA tenderness. No mass felt. EXTREMITIES: Trace pedal edema. Full range of motion of all extremities, equal. NEUROLOGIC: No focal deficit. Cranial nerves II through XII are grossly intact. No headache. No double vision. SKIN: Not dry. Intact. Turgor-normal. LYMPHATIC: No palpable lymph nodes/no lymphedema. MUSCULOSKELETAL: Normal joints with no swelling. Muscle tone is normal. LAB REVIEW: 04/18/22 04:56 04/18/22 04:56 ASSESSMENT: Please see below. 1. Influenza B 2. Acute COPD exacerbation 3. Bilateral pneumonitis 4. Chronic respiratory failure 5. GERD 6. Leg edema 7. Myalgias PLAN: 1. Protonix twice a day 2. Lasix 40 mg IV. 3. Toradol 15 mg IV q.8 hr p.r.n. Plan and coordination of the patient's care discussed in the presence of Web Site Admin and nurse. TIME SPENT: 35 MINUTES CONDITION: Stable SCRIBED BY: Merced TURCIOSist scribed while in presence of service performed by Dr. Schulte/Debbie Garcia APRN on 04/19/22 ([id number])
[2022-04-19] MEDS: CATAPRES PO SCH ×2 (15:05→20:30)
[2022-04-19] MEDS: PROTONIX PO SCH (17:35)
[2022-04-19] MEDS: TORADOL IVP PRN (20:25)
[2022-04-19] MEDS: FLOMAX PO SCH (20:29)
[2022-04-19] MEDS: ASPIRIN EC PO SCH (20:30)
[2022-04-19] MEDS: AFRIN NASAL SPRAY NAS SCH ×2 (20:32→21:08)
[2022-04-20] MEDS: ALBUTEROL 0.083% NEB NEB SCH ×4 (04:40→19:30)
[2022-04-20] MEDS: PULMICORT 0.5 MG/2 ML NEB SCH ×2 (04:40→19:30)
[2022-04-20] MEDS: PROTONIX PO SCH ×2 (05:41→16:20)
[2022-04-20] MEDS: SOLU-MEDROL 125 MG IVP SCH ×3 (05:41→22:00)
[2022-04-20] MEDS: LASIX TAB PO SCH (05:41)
[2022-04-20 05:52] LABS: BASOPHILS % (AUTO) 0.1 % (0.0-3.0); HEMATOCRIT 35.7 % (42.0-52.0); HEMOGLOBIN 11.9 g/dl (14.0-18.0); IMMATURE GRANULOCYTE # (AUTO) 0.1 (0.0-1.0); IMMATURE GRANULOCYTE % (AUTO) 0.7 % (0.0-5.0); LYMPHOCYTES # (AUTO) 0.7 K/uL (0.60-3.4); LYMPHOCYTES % (AUTO) 9.7 (10.0-50.0); MEAN CORPUSCULAR HEMOGLOBIN 30.9 pg (27.0-31.0); MEAN CORPUSCULAR HGB CONC 33.3 (31.8-35.4); MEAN CORPUSCULAR VOLUME 92.7 fl (80.0-94.0); MONOCYTES # (AUTO) 0.4 K/uL (0.4-2.0); MONOCYTES % (AUTO) 6.1 (0-10); NEUTROPHILS # (AUTO) 5.6 K/ul (2.0-6.9); NEUTROPHILS % (AUTO) 83.4 % (42.2-75.2); PLATELET COUNT 161 10^3/uL (140-440); RDW COEFFICIENT OF VARIATION 13.4 % (11.6-14.8); RED BLOOD COUNT 3.85 10^6/ul (4.70-6.10)
[2022-04-20 06:04] LABS: ALANINE AMINOTRANSFERASE 20.4 U/L (0-50); ALBUMIN 3.92 g/dL (3.5-5.0); ALKALINE PHOSPHATASE 45.6 U/L (56-119); ASPARTATE AMINO TRANSFERASE 23.1 U/L (17-59); BILIRUBIN,TOTAL 0.31 mg/dL (0.2-1.3); BLOOD UREA NITROGEN 48.9 mg/dL (9-20); CALCIUM 8.44 mg/dL (8.4-10.2); CARBON DIOXIDE 32.4 mmol/L (22-30.0); CHLORIDE 93.7 mmol/L (98-107); CREATININE 1.45 mg/dL (0.60-1.10); POTASSIUM 4.5 mmol/L (3.5-5.1); SODIUM 131.9 mmol/L (134.5-145); TOTAL PROTEIN 6.2 g/dL (6.3-8.2)
[2022-04-20] MEDS: MIRALAX PO SCH ×2 (10:34→21:05)
[2022-04-20] MEDS: ROCEPHIN 1 GM/50 ML D5W 1 GM/50 ML BAG IV SCH (10:34)
[2022-04-20] MEDS: HYTRIN PO SCH (10:35)
[2022-04-20] MEDS: MUCINEX PO SCH ×2 (10:35→21:03)
[2022-04-20] MEDS: TAMIFLU CAPSULE PO SCH (10:36)
[2022-04-20] MEDS: XANAX PO SCH ×3 (10:36→21:03)
[2022-04-20] MEDS: COREG PO SCH ×2 (10:37→16:19)
[2022-04-20] MEDS: MINOXIDIL PO SCH ×2 (10:38→21:04)
[2022-04-20] MEDS: ZANAFLEX PO SCH ×2 (10:38→21:03)
[2022-04-20] MEDS: FLORASTOR PO SCH ×2 (10:39→21:05)
[2022-04-20] MEDS: COZAAR PO SCH ×2 (10:39→21:04)
[2022-04-20] MEDS: NORVASC PO SCH (10:40)
[2022-04-20] MEDS: MYLANTA SUSP PO SCH ×4 (10:40→21:02)
[2022-04-20] MEDS: TORADOL IVP PRN (10:51)
[2022-04-20] MEDS: LEXAPRO PO SCH (10:53)
[2022-04-20] MEDS: ASTELIN 0.1% NAS SCH ×2 (10:54→21:01)
[2022-04-20] MEDS: ANORO ELLIPTA 62.5-25 MCG INH IH SCH (10:54)
--- NOTE | 2022-04-20 11:19 | PCM.PROG ---
Attending Provider: ATTENDING PROVIDER: Dr. HAILEY SCHULTE MD This patient is seen with Debbie Garcia, Nurse Practitioner. DATE OF SERVICE: 04/20/22 SUBJECTIVE: This 81 year old /WHITE M was hospitalized 04/16/22. The patient is resting comfortably. He reports that breathing is improved today. No fever. Renal function is elevated which I feel is due to IV Lasix yesterday. Encouraged to increase fluids today. REVIEW OF SYSTEMS: CONSTITUTIONAL: Fatigue. No night sweats. No malaise, lethargy. No fever or chills. HEENT: Eyes: No visual changes. No eye pain. No eye discharge. ENT: No runny nose. No epistaxis. No sinus pain. No odynophagia. No congestion. RESPIRATORY: Cough. No hemoptysis. Shortness of breath. CARDIOVASCULAR: No angina symptoms. No CHF symptoms. No atypical chest pain for CAD. No palpitations. No orthopnea.. GASTROINTESTINAL: No abdominal pain. No nausea or vomiting. No diarrhea or constipation. No hematemesis. No hematochezia. GENITOURINARY: No urgency. No frequency. No dysuria. No hematuria. No obstructive symptoms. No discharge. No pain. No significant abnormal bleeding. MUSCULOSKELETAL: Achiness. No musculoskeletal pain; no joint swelling. NEUROLOGICAL: Awake, alert, oriented to time, place and person. No headache. No neck pain. No syncope. No seizures. No dizziness. PSYCHIATRIC: Not anxious. No depression. No suicidal thoughts. No homicidal thoughts. SKIN: No rash. No lesions. No wounds. ENDOCRINE: No unexplained weight loss. No weight gain. HEMATOLOGIC/LYMPHATIC: No anemia. No purpura. No petechiae. No prolonged or exce ssive bleeding. No palpable lymph nodes. PHYSICAL EXAMINATION: GENERAL: The patient is awake, alert and oriented, lying/sitting in bed in no distress. VITAL SIGNS: Temperature 96.7 F, Pulse 81, Respiratory Rate 18, BP 134/70, Pulse Ox 95% HEENT: Head normocephalic, atraumatic. Eyes: Extraocular muscles are intact. Pupils are equal, round and reactive to light and accommodation. Ears: No lesions. Nose appeared normal. Throat: No exudate or erythema. NECK: Supple. No JVD, no carotid bruit. No lymphadenopathy or thyromegaly. LUNGS: Severely diminished breath sounds. Clear to auscultation. Percussion note normal. Chest symmetrical. HEART: S1, S2, no S3. No murmurs. No cyanosis or clubbing. No ascites. Pulses: Dorsalis pedis and posterior tibial pulses +1 to +2 both sides. ABDOMEN: Soft. Non-tender. Bowel sounds active. No CVA tenderness. No mass felt. EXTREMITIES: No edema. Full range of motion of all extremities, equal. NEUROLOGIC: No focal deficit. Cranial nerves II through XII are grossly intact. No headache. No double vision. SKIN: Not dry. Intact. Turgor-normal. LYMPHATIC: No palpable lymph nodes/no lymphedema. MUSCULOSKELETAL: Normal joints with no swelling. Muscle tone is normal. LAB REVIEW: 04/20/22 05:18 04/20/22 05:18 04/20/22 05:18: Sodium 131.9 L, Potassium 4.50, Chloride 93.7 L, Carbon Dioxide 32.4 H, Anion Gap 10.30, BUN 48.9 H, Creatinine 1.45 H, Estimated GFR (MDRD) 47.00, BUN/Creatinine Ratio 33.72, Glucose 141.0 H, Calcium 8.44, Total Bilirubin 0.31, AST 23.1, ALT 20.4, Alkaline Phosphatase 45.6 L, Total Protein 6.20 L, Albumin 3.92, Globulin 2.28, Albumin/Globulin Ratio 1.71 04/20/22 05:18: WBC 6.70, RBC 3.85 L, Hgb 11.9 L, Hct 35.7 L, MCV 92.7, MCH 30.9, MCHC 33.3, RDW Coeff of Bhaskar 13.4, Plt Count 161, Immature Gran % (Auto) 0.7, Neut % (Auto) 83.4 H, Lymph % (Auto) 9.7 L, [place] % (Auto) 6.1, Eos % (Auto) 0.0, Baso % (Auto) 0.1, Neut # (Auto) 5.6, Lymph # (Auto) 0.7, [place] # (Auto) 0.4, Eos # (Auto) 0.0, Baso # (Auto) 0.0, Immature Gran # (Auto) 0.1 ASSESSMENT: Please see below. 1. Influenza B 2. Acute COPD exacerbation 3. Chronic respiratory failure 4. Renal azotemia 5. Chronic hyponatremia 6. Hypertension 7. Anxiety PLAN: 1. Continue IV antibiotics. 2. Decrease Solu-Medrol to 125 mg q.8hr. 3. Encouraged to increase fluid intake. Plan and coordination of the patient's care discussed in the presence of Supervisor Nurse and nurse. CONDITION: Stable TIME SPENT: 35 MINUTES SCRIBED BY: Valentin TURCIOS scribed while in presence of service performed by Debbie Garcia APRN on 04/20/22 ([id number])
[2022-04-20] MEDS: CATAPRES PO SCH ×2 (16:18→21:06)
[2022-04-20] MEDS: OMNICEF PO SCH (21:03)
[2022-04-20] MEDS: FLOMAX PO SCH (21:03)
[2022-04-20] MEDS: ASPIRIN EC PO SCH (21:03)
[2022-04-20] MEDS: AFRIN NASAL SPRAY NAS SCH (21:28)
[2022-04-21] MEDS: ALBUTEROL 0.083% NEB NEB SCH ×4 (04:55→20:30)
[2022-04-21] MEDS: PULMICORT 0.5 MG/2 ML NEB SCH ×2 (04:55→20:30)
[2022-04-21 05:29] LABS: BASOPHILS % (AUTO) 0.2 % (0.0-3.0); HEMATOCRIT 34.7 % (42.0-52.0); HEMOGLOBIN 11.6 g/dl (14.0-18.0); IMMATURE GRANULOCYTE # (AUTO) 0.1 (0.0-1.0); IMMATURE GRANULOCYTE % (AUTO) 0.8 % (0.0-5.0); LYMPHOCYTES # (AUTO) 0.5 K/uL (0.60-3.4); LYMPHOCYTES % (AUTO) 8.6 (10.0-50.0); MEAN CORPUSCULAR HEMOGLOBIN 31.4 pg (27.0-31.0); MEAN CORPUSCULAR HGB CONC 33.4 (31.8-35.4); MEAN CORPUSCULAR VOLUME 93.8 fl (80.0-94.0); MONOCYTES # (AUTO) 0.2 K/uL (0.4-2.0); NEUTROPHILS # (AUTO) 5.2 K/ul (2.0-6.9); NEUTROPHILS % (AUTO) 86.4 % (42.2-75.2); PLATELET COUNT 155 10^3/uL (140-440); RDW COEFFICIENT OF VARIATION 13.4 % (11.6-14.8); WHITE BLOOD COUNT 6.06 K/ul (4.2-10.2)
[2022-04-21] MEDS: SOLU-MEDROL 125 MG IVP SCH ×2 (05:34→13:20)
[2022-04-21 05:55] LABS: ALBUMIN 3.44 g/dL (3.5-5.0); ALKALINE PHOSPHATASE 41.7 U/L (56-119); BILIRUBIN,TOTAL 0.31 mg/dL (0.2-1.3); BLOOD UREA NITROGEN 53.5 mg/dL (9-20); CALCIUM 7.9 mg/dL (8.4-10.2); CARBON DIOXIDE 33.9 mmol/L (22-30.0); CHLORIDE 96.3 mmol/L (98-107); CREATININE 1.42 mg/dL (0.60-1.10); GLUCOSE 172.7 mg/dL (74-106); POTASSIUM 4.19 mmol/L (3.5-5.1); SODIUM 131.3 mmol/L (134.5-145); TOTAL PROTEIN 5.58 g/dL (6.3-8.2)
[2022-04-21] MEDS: LASIX TAB PO SCH (05:57)
[2022-04-21] MEDS: PROTONIX PO SCH ×2 (05:57→17:47)
[2022-04-21] MEDS: MINOXIDIL PO SCH ×2 (08:38→20:29)
[2022-04-21] MEDS: OMNICEF PO SCH ×2 (08:38→20:31)
[2022-04-21] MEDS: ZANAFLEX PO SCH ×2 (08:38→20:29)
[2022-04-21] MEDS: HYTRIN PO SCH (08:38)
[2022-04-21] MEDS: NORVASC PO SCH (08:38)
[2022-04-21] MEDS: XANAX PO SCH ×3 (08:38→20:29)
[2022-04-21] MEDS: COZAAR PO SCH ×2 (08:38→20:30)
[2022-04-21] MEDS: COREG PO SCH ×2 (08:39→17:47)
[2022-04-21] MEDS: MYLANTA SUSP PO SCH ×4 (08:39→20:28)
[2022-04-21] MEDS: MUCINEX PO SCH ×2 (08:39→20:29)
[2022-04-21] MEDS: FLORASTOR PO SCH ×2 (08:39→20:30)
[2022-04-21] MEDS: ANORO ELLIPTA 62.5-25 MCG INH IH SCH (08:39)
[2022-04-21] MEDS: ASTELIN 0.1% NAS SCH ×2 (08:40→20:32)
[2022-04-21] MEDS: LEXAPRO PO SCH (08:41)
[2022-04-21] MEDS: MIRALAX PO SCH ×2 (08:41→20:28)
[2022-04-21] MEDS: CATAPRES PO SCH ×2 (13:36→20:31)
[2022-04-21] MEDS: CARAFATE PO SCH ×2 (17:47→20:28)
[2022-04-21] MEDS: PREDNISONE PO SCH (17:47)
[2022-04-21] MEDS: ASPIRIN EC PO SCH (20:29)
[2022-04-21] MEDS: FLOMAX PO SCH (20:31)
[2022-04-21] MEDS: AFRIN NASAL SPRAY NAS SCH (20:32)
[2022-04-22] MEDS: ALBUTEROL 0.083% NEB NEB SCH ×4 (04:55→19:30)
[2022-04-22] MEDS: PULMICORT 0.5 MG/2 ML NEB SCH ×2 (04:55→19:30)
[2022-04-22 05:36] LABS: BASOPHILS % (AUTO) 0.1 % (0.0-3.0); HEMATOCRIT 36.9 % (42.0-52.0); HEMOGLOBIN 12.1 g/dl (14.0-18.0); IMMATURE GRANULOCYTE # (AUTO) 0.1 (0.0-1.0); IMMATURE GRANULOCYTE % (AUTO) 1.4 % (0.0-5.0); LYMPHOCYTES # (AUTO) 0.8 K/uL (0.60-3.4); LYMPHOCYTES % (AUTO) 10.9 (10.0-50.0); MEAN CORPUSCULAR HEMOGLOBIN 30.6 pg (27.0-31.0); MEAN CORPUSCULAR HGB CONC 32.8 (31.8-35.4); MEAN CORPUSCULAR VOLUME 93.2 fl (80.0-94.0); MONOCYTES # (AUTO) 0.6 K/uL (0.4-2.0); MONOCYTES % (AUTO) 8.8 (0-10); NEUTROPHILS # (AUTO) 5.8 K/ul (2.0-6.9); NEUTROPHILS % (AUTO) 78.8 % (42.2-75.2); PLATELET COUNT 174 10^3/uL (140-440); RDW COEFFICIENT OF VARIATION 13.5 % (11.6-14.8); RED BLOOD COUNT 3.96 10^6/ul (4.70-6.10); WHITE BLOOD COUNT 7.31 K/ul (4.2-10.2)
[2022-04-22 05:50] LABS: ALANINE AMINOTRANSFERASE 18.9 U/L (0-50); ALBUMIN 3.53 g/dL (3.5-5.0); ALKALINE PHOSPHATASE 43.8 U/L (56-119); ASPARTATE AMINO TRANSFERASE 22.4 U/L (17-59); BILIRUBIN,TOTAL 0.43 mg/dL (0.2-1.3); CALCIUM 7.64 mg/dL (8.4-10.2); CARBON DIOXIDE 34.6 mmol/L (22-30.0); CHLORIDE 93.7 mmol/L (98-107); CREATININE 1.34 mg/dL (0.60-1.10); GLUCOSE 113.5 mg/dL (74-106); POTASSIUM 4.55 mmol/L (3.5-5.1); SODIUM 132.1 mmol/L (134.5-145); TOTAL PROTEIN 5.58 g/dL (6.3-8.2)
[2022-04-22] MEDS: PROTONIX PO SCH ×2 (05:51→17:49)
[2022-04-22] MEDS: LASIX TAB PO SCH (05:51)
[2022-04-22] MEDS: CARAFATE PO SCH ×4 (05:52→20:16)
[2022-04-22] MEDS: MYLANTA SUSP PO SCH ×4 (09:25→20:16)
[2022-04-22] MEDS: MUCINEX PO SCH ×2 (09:26→20:18)
[2022-04-22] MEDS: COREG PO SCH ×2 (09:26→17:49)
[2022-04-22] MEDS: PREDNISONE PO SCH ×2 (09:26→17:49)
[2022-04-22] MEDS: XANAX PO SCH ×3 (09:26→20:18)
[2022-04-22] MEDS: ZANAFLEX PO SCH ×2 (09:26→20:20)
[2022-04-22] MEDS: LEXAPRO PO SCH (09:26)
[2022-04-22] MEDS: COZAAR PO SCH ×2 (09:26→20:18)
[2022-04-22] MEDS: HYTRIN PO SCH (09:26)
[2022-04-22] MEDS: OMNICEF PO SCH ×2 (09:26→20:17)
[2022-04-22] MEDS: MINOXIDIL PO SCH ×2 (09:27→20:18)
[2022-04-22] MEDS: ANORO ELLIPTA 62.5-25 MCG INH IH SCH (09:27)
[2022-04-22] MEDS: FLORASTOR PO SCH ×2 (09:27→20:18)
[2022-04-22] MEDS: ASTELIN 0.1% NAS SCH ×2 (09:27→20:26)
[2022-04-22] MEDS: MIRALAX PO SCH ×2 (09:30→20:16)
--- NOTE | 2022-04-22 12:29 | PN ---
DATE OF SERVICE: 04/18/22 SUBJECTIVE: 81 year old white male hospitalized with COPD exacerbation. The patient also has flu B positive. The patient is feeling better and less coughing. He is still weak and tired with generalized ache. REVIEW OF SYSTEMS: CONSTITUTIONAL: Generalized aches and pains. Weakness and fatigue. . HEENT: Eyes: No visual changes. No eye pain. No eye discharge. ENT: No runny nose. No epistaxis. No sinus pain. No sore throat. No odynophagia. No congestion. RESPIRATORY: Cough with congestion. Shortness of breath on excertion. CARDIOVASCULAR: No angina symptoms. No CHF symptoms. No atypical chest pain for CAD. No palpitations. No PND. No orthopnea. GASTROINTESTINAL: No abdominal pain. No nausea or vomiting. No diarrhea or constipation. No hematemesis. No hematochezia. GENITOURINARY: No urgency. No frequency. No dysuria. No hematuria. No obstructive symptoms. No discharge. No pain. No significant abnormal bleeding. MUSCULOSKELETAL: No musculoskeletal pain; no joint swelling. NEUROLOGICAL: No headache. No neck pain. No syncope. No seizures. No dizziness. PSYCHIATRIC: Not anxious. No depression. No suicidal thoughts. No homicidal thoughts. SKIN: No rash. No lesions. No wounds. ENDOCRINE: No unexplained weight loss. No weight gain. HEMATOLOGIC/LYMPHATIC: No anemia. No purpura. No petechiae. No prolonged or excessive bleeding. No palpable lymph nodes. PHYSICAL EXAMINATION: VITAL SIGNS: Temperature 97.3, pulse 70, respiratory rate 16, blood pressure 125/67, pulse ox 94% HEENT: Head normocephalic, atraumatic. Eyes: Extraocular muscles are intact. Pupils are equal, round and reactive to light and accommodation. Ears: No lesions. Nose appeared normal. Throat: No exudate or erythema. NECK: Supple. No JVD, no carotid bruit. No lymphadenopathy or thyromegaly. LUNGS: Decreased breath sounds but clear. Percussion note normal. Chest symmetrical. HEART: S1, S2, no S3. No murmurs. No cyanosis or clubbing. No ascites. Pulses: Dorsalis pedis and posterior tibial pulses +1 to +2 bilaterally. ABDOMEN: Soft. Nontender. Bowel sounds active. No CVA tenderness. No mass felt. EXTREMITIES: No edema. Full range of motion of all extremities, equal. NEUROLOGIC: No focal deficit. Cranial nerves II through XII are grossly intact. No headache. No double vision. SKIN: Not dry. Intact. Turgor - normal. LYMPHATIC: No palpable lymph nodes/no lymphedema. MUSCULOSKELETAL: Normal joints with no swelling. Muscle tone is normal. LABS: Hemoglobin 11.6, hematocrit 34, WBC 5,400, normal differential, creatinine 1, BUN 30, potassium 4, ASSESSMENT: 1. Acute pneumonitis 2. Bronchitis 3. COPD exacerbation, seems to be under control. 4. Influenza B seems to be under control. He still has generalized aches and pains Educated about influenza and its symptoms that could last for weeks especially fatigue, weakness and generalized aches. Patient is SARS negative. PLAN: Continue steroids, antibiotics and nebs. TIME SPENT: More than 35 minutes. Plan and coordination of the patient's care discussed in the presence of nurse. NITIN
--- NOTE | 2022-04-22 12:32 | PN ---
DATE OF SERVICE: 04/19/22 SUBJECTIVE: Patient was seen and examined with the nurse practitioner. The patient's condition is stabilized. He has end stage COPD and doesn't have any dry cough and good air entry. REVIEW OF SYSTEMS: CONSTITUTIONAL: No night sweats. No fatigue, malaise, lethargy. No fever or chills. HEENT: Eyes: No visual changes. No eye pain. No eye discharge. ENT: No runny nose. No epistaxis. No sinus pain. No sore throat. No odynophagia. No congestion. RESPIRATORY: No cough, no congestion. No hemoptysis. No shortness of breath. CARDIOVASCULAR: No angina symptoms. No CHF symptoms. No atypical chest pain for CAD. No palpitations. No PND. No orthopnea. GASTROINTESTINAL: No abdominal pain. No nausea or vomiting. No diarrhea or constipation. No hematemesis. No hematochezia. GENITOURINARY: No urgency. No frequency. No dysuria. No hematuria. No obstructive symptoms. No discharge. No pain. No significant abnormal bleeding. MUSCULOSKELETAL: No musculoskeletal pain; no joint swelling. NEUROLOGICAL: No headache. No neck pain. No syncope. No seizures. No dizziness. PSYCHIATRIC: Not anxious. No depression. No suicidal thoughts. No homicidal thoughts. SKIN: No rash. No lesions. No wounds. ENDOCRINE: No unexplained weight loss. No weight gain. HEMATOLOGIC/LYMPHATIC: No anemia. No purpura. No petechiae. No prolonged or excessive bleeding. No palpable lymph nodes. PHYSICAL EXAMINATION: GENERAL: The patient is in no distress. HEENT: Head normocephalic, atraumatic. Eyes: Extraocular muscles are intact. Pupils are equal, round and reactive to light and accommodation. Ears: No lesions. Nose appeared normal. Throat: No exudate or erythema. NECK: Supple. No JVD, no carotid bruit. No lymphadenopathy or thyromegaly. LUNGS: Clear to auscultation. Percussion note normal. Chest symmetrical. HEART: S1, S2, no S3. No murmurs. No cyanosis or clubbing. No ascites. Pulses: Dorsalis pedis and posterior tibial pulses +1 to +2 bilaterally. ABDOMEN: Soft. Nontender. Bowel sounds active. No CVA tenderness. No mass felt. EXTREMITIES: No edema. Full range of motion of all extremities, equal. NEUROLOGIC: No focal deficit. Cranial nerves II through XII are grossly intact. No headache. No double vision. SKIN: Not dry. Intact. Turgor - normal. LYMPHATIC: No palpable lymph nodes/no lymphedema. MUSCULOSKELETAL: Normal joints with no swelling. Muscle tone is normal. PLAN: He is going to be given Lasix IV 20 mg for fluid retention from steroid therapy. . TIME SPENT: More than 35 minutes. Plan and coordination of the patient's care discussed in the presence of nurse. NITIN
--- NOTE | 2022-04-22 12:37 | PN ---
DATE OF SERVICE: 04/20/22 SUBJECTIVE: Patient was seen and examined with the nurse practitioner. Patient's respiratory status is improved. Fluid retention seems to be much better with IV Lasix and antibiotics. REVIEW OF SYSTEMS: CONSTITUTIONAL: No night sweats. No fatigue, malaise, lethargy. No fever or chills. HEENT: Eyes: No visual changes. No eye pain. No eye discharge. ENT: No runny nose. No epistaxis. No sinus pain. No sore throat. No odynophagia. No congestion. RESPIRATORY: No cough, no congestion. No hemoptysis. No shortness of breath. CARDIOVASCULAR: No angina symptoms. No CHF symptoms. No atypical chest pain for CAD. No palpitations. No PND. No orthopnea. GASTROINTESTINAL: No abdominal pain. No nausea or vomiting. No diarrhea or constipation. No hematemesis. No hematochezia. GENITOURINARY: No urgency. No frequency. No dysuria. No hematuria. No obstructive symptoms. No discharge. No pain. No significant abnormal bleeding. MUSCULOSKELETAL: No musculoskeletal pain; no joint swelling. NEUROLOGICAL: No headache. No neck pain. No syncope. No seizures. No dizziness. PSYCHIATRIC: Not anxious. No depression. No suicidal thoughts. No homicidal thoughts. SKIN: No rash. No lesions. No wounds. ENDOCRINE: No unexplained weight loss. No weight gain. HEMATOLOGIC/LYMPHATIC: No anemia. No purpura. No petechiae. No prolonged or excessive bleeding. No palpable lymph nodes. PHYSICAL EXAMINATION: GENERAL: The patient is in no distress. HEENT: Head normocephalic, atraumatic. Eyes: Extraocular muscles are intact. Pupils are equal, round and reactive to light and accommodation. Ears: No lesions. Nose appeared normal. Throat: No exudate or erythema. NECK: Supple. No JVD, no carotid bruit. No lymphadenopathy or thyromegaly. LUNGS: Clear to auscultation. Percussion note normal. Chest symmetrical. HEART: S1, S2, no S3. No murmurs. No cyanosis or clubbing. No ascites. Pulses: Dorsalis pedis and posterior tibial pulses +1 to +2 bilaterally. ABDOMEN: Soft. Nontender. Bowel sounds active. No CVA tenderness. No mass felt. EXTREMITIES: No edema. Full range of motion of all extremities, equal. NEUROLOGIC: No focal deficit. Cranial nerves II through XII are grossly intact. No headache. No double vision. SKIN: Not dry. Intact. Turgor - normal. LYMPHATIC: No palpable lymph nodes/no lymphedema. MUSCULOSKELETAL: Normal joints with no swelling. Muscle tone is normal. PLAN: Decrease dose of steroids and continue nebs TIME SPENT: More than 35 minutes. Plan and coordination of the patient's care discussed in the presence of nurse. NITIN
[2022-04-22] MEDS: CATAPRES PO SCH ×2 (13:11→20:19)
[2022-04-22] MEDS: FLOMAX PO SCH (20:16)
[2022-04-22] MEDS: ASPIRIN EC PO SCH (20:17)
[2022-04-22] MEDS: AFRIN NASAL SPRAY NAS SCH (20:26)
[2022-04-23] MEDS: PULMICORT 0.5 MG/2 ML NEB SCH ×2 (04:45→21:00)
[2022-04-23] MEDS: ALBUTEROL 0.083% NEB NEB SCH ×4 (04:45→21:00)
[2022-04-23 05:34] LABS: BASOPHILS % (AUTO) 0.1 % (0.0-3.0); HEMATOCRIT 36.2 % (42.0-52.0); HEMOGLOBIN 11.8 g/dl (14.0-18.0); IMMATURE GRANULOCYTE # (AUTO) 0.2 (0.0-1.0); IMMATURE GRANULOCYTE % (AUTO) 2.6 % (0.0-5.0); LYMPHOCYTES # (AUTO) 0.9 K/uL (0.60-3.4); LYMPHOCYTES % (AUTO) 11.8 (10.0-50.0); MEAN CORPUSCULAR HEMOGLOBIN 30.7 pg (27.0-31.0); MEAN CORPUSCULAR HGB CONC 32.6 (31.8-35.4); MEAN CORPUSCULAR VOLUME 94.3 fl (80.0-94.0); MONOCYTES # (AUTO) 0.6 K/uL (0.4-2.0); MONOCYTES % (AUTO) 8.3 (0-10); NEUTROPHILS # (AUTO) 5.9 K/ul (2.0-6.9); NEUTROPHILS % (AUTO) 77.2 % (42.2-75.2); PLATELET COUNT 163 10^3/uL (140-440); RDW COEFFICIENT OF VARIATION 13.6 % (11.6-14.8); RED BLOOD COUNT 3.84 10^6/ul (4.70-6.10)
[2022-04-23] MEDS: PROTONIX PO SCH ×2 (05:44→17:51)
[2022-04-23] MEDS: LASIX TAB PO SCH (05:44)
[2022-04-23] MEDS: CARAFATE PO SCH ×4 (05:44→20:39)
[2022-04-23 05:55] LABS: ALANINE AMINOTRANSFERASE 16.8 U/L (0-50); ALBUMIN 3.27 g/dL (3.5-5.0); ALKALINE PHOSPHATASE 43.2 U/L (56-119); ASPARTATE AMINO TRANSFERASE 18.8 U/L (17-59); BILIRUBIN,TOTAL 0.37 mg/dL (0.2-1.3); BLOOD UREA NITROGEN 51.1 mg/dL (9-20); CALCIUM 7.55 mg/dL (8.4-10.2); CARBON DIOXIDE 34.3 mmol/L (22-30.0); CHLORIDE 94.9 mmol/L (98-107); CREATININE 1.23 mg/dL (0.60-1.10); GLUCOSE 119.6 mg/dL (74-106); POTASSIUM 4.5 mmol/L (3.5-5.1); SODIUM 131.4 mmol/L (134.5-145); TOTAL PROTEIN 5.33 g/dL (6.3-8.2)
[2022-04-23] MEDS: ASTELIN 0.1% NAS SCH ×2 (09:30→20:41)
[2022-04-23] MEDS: MYLANTA SUSP PO SCH ×4 (09:31→20:39)
[2022-04-23] MEDS: HYTRIN PO SCH (09:31)
[2022-04-23] MEDS: COREG PO SCH ×2 (09:31→17:51)
[2022-04-23] MEDS: OMNICEF PO SCH (09:31)
[2022-04-23] MEDS: FLORASTOR PO SCH ×2 (09:32→20:39)
[2022-04-23] MEDS: MINOXIDIL PO SCH ×2 (09:32→20:39)
[2022-04-23] MEDS: XANAX PO SCH ×3 (09:32→20:39)
[2022-04-23] MEDS: LEXAPRO PO SCH (09:33)
[2022-04-23] MEDS: COZAAR PO SCH ×2 (09:33→20:39)
[2022-04-23] MEDS: MUCINEX PO SCH ×2 (09:33→20:40)
[2022-04-23] MEDS: CATAPRES PO SCH ×3 (09:34→20:40)
--- NOTE | 2022-04-23 09:34 | PCM.PROG ---
Attending Provider: ATTENDING PROVIDER: Dr. HAILEY SCHULTE MD This patient is seen with Debbie Garcia, Nurse Practitioner. DATE OF SERVICE: 04/23/22 SUBJECTIVE: This 81 year old /WHITE M was hospitalized 04/16/22. The patient is resting comfortably. The patient is significantly improved however having some swelling due to steroids. He is unsure of going home. He has been instructed to get up and walk around today. He is eating well. He is anxious as usual. REVIEW OF SYSTEMS: CONSTITUTIONAL: Generalized edema. No night sweats. No fatigue, malaise, lethargy. No fever or chills. HEENT: Eyes: No visual changes. No eye pain. No eye discharge. ENT: No runny nose. No epistaxis. No sinus pain. No odynophagia. No congestion. RESPIRATORY: Cough. No hemoptysis. Shortness of breath. CARDIOVASCULAR: No angina symptoms. No CHF symptoms. No atypical chest pain for CAD. No palpitations. No orthopnea.. GASTROINTESTINAL: No abdominal pain. No nausea or vomiting. No diarrhea or constipation. No hematemesis. No hematochezia. GENITOURINARY: No urgency. No frequency. No dysuria. No hematuria. No obstructive symptoms. No discharge. No pain. No significant abnormal bleeding. MUSCULOSKELETAL: No musculoskeletal pain; no joint swelling. NEUROLOGICAL: Awake, alert, oriented to time, place and person. No headache. No neck pain. No syncope. No seizures. No dizziness. PSYCHIATRIC: Anxious. No depression. No suicidal thoughts. No homicidal thoughts. SKIN: No rash. No lesions. No wounds. ENDOCRINE: No unexplained weight loss. No weight gain. HEMATOLOGIC/LYMPHATIC: No anemia. No purpura. No petechiae. No prolonged or excessive bleeding. No palpable lymph nodes. PHYSICAL EXAMINATION: GENERAL: The patient is awake, alert and oriented, lying/sitting in bed in no distress. VITAL SIGNS: Temperature 96.7 F, Pulse 76, Respiratory Rate 18, BP 146/73, Pulse Ox 100% HEENT: Head normocephalic, atraumatic. Eyes: Extraocular muscles are intact. Pupils are equal, round and reactive to light and accommodation. Ears: No lesions. Nose appeared normal. Throat: No exudate or erythema. NECK: Supple. No JVD, no carotid bruit. No lymphadenopathy or thyromegaly. LUNGS: Diminished breath sounds. Clear to auscultation. Percussion note normal. Chest symmetrical. HEART: S1, S2, no S3. No murmurs. No cyanosis or clubbing. No ascites. Pul ses: Dorsalis pedis and posterior tibial pulses +1 to +2 both sides. ABDOMEN: Soft. Non-tender. Bowel sounds active. No CVA tenderness. No mass felt. EXTREMITIES: Trace edema left arm, trace pedal edema. Full range of motion of all extremities, equal. NEUROLOGIC: No focal deficit. Cranial nerves II through XII are grossly intact. No headache. No double vision. SKIN: Not dry. Intact. Turgor-normal. LYMPHATIC: No palpable lymph nodes/no lymphedema. MUSCULOSKELETAL: Normal joints with no swelling. Muscle tone is normal. LAB REVIEW: 04/23/22 04:59 04/23/22 04:59 04/23/22 04:59: Sodium 131.4 L, Potassium 4.50, Chloride 94.9 L, Carbon Dioxide 34.3 H, Anion Gap 6.70, BUN 51.1 H, Creatinine 1.23 H, Estimated GFR (MDRD) 56.00, BUN/Creatinine Ratio 41.54, Glucose 119.6 H, Calcium 7.55 L, Total Bilirubin 0.37, AST 18.8, ALT 16.8, Alkaline Phosphatase 43.2 L, Total Protein 5.33 L, Albumin 3.27 L, Globulin 2.06, Albumin/Globulin Ratio 1.58 04/23/22 04:59: WBC 7.60, RBC 3.84 L, Hgb 11.8 L, Hct 36.2 L, MCV 94.3 H, MCH 30.7, MCHC 32.6, RDW Coeff of Bhaskar 13.6, Plt Count 163, Immature Gran % (Auto) 2.6, Neut % (Auto) 77.2 H, Lymph % (Auto) 11.8, [place] % (Auto) 8.3, Eos % (Auto) 0.0, Baso % (Auto) 0.1, Neut # (Auto) 5.9, Lymph # (Auto) 0.9, [place] # (Auto) 0.6, Eos # (Auto) 0.0, Baso # (Auto) 0.0, Immature Gran # (Auto) 0.2 ASSESSMENT: Please see below. 1. Influenza B. 2. Acute COPD exacerbation. 3. Renal azotemia improving. 4. Hypertension. 5. Anxiety. 6. Generalized swelling due to steroids. PLAN: 1. Hold Lasix tomorrow 2. Decrease Prednisone 10 mg once a day. 3. Add Clonidine today 0.1 in morning. Plan and coordination of the patient's care discussed in the presence of Artificial Inseminator and nurse. TIME SPENT: 35 MINUTES CONDITION: Stable SCRIBED BY: BEAR HOLLEY Embroidery Worker scribed while in presence of service performed by Dr. Schulte/Debbie Garcia APRN on 04/23/22 ([id number])
[2022-04-23] MEDS: ZANAFLEX PO SCH ×2 (09:38→20:40)
[2022-04-23] MEDS: MIRALAX PO SCH ×2 (09:39→20:39)
[2022-04-23] MEDS: PREDNISONE PO SCH (09:50)
[2022-04-23] MEDS: ANORO ELLIPTA 62.5-25 MCG INH IH SCH (11:08)
[2022-04-23] MEDS: ASPIRIN EC PO SCH (20:39)
[2022-04-23] MEDS: FLOMAX PO SCH (20:40)
[2022-04-23] MEDS: AFRIN NASAL SPRAY NAS SCH (20:41)
[2022-04-24] MEDS: ALBUTEROL 0.083% NEB NEB SCH ×3 (04:40→13:55)
[2022-04-24] MEDS: PULMICORT 0.5 MG/2 ML NEB SCH (04:40)
[2022-04-24 05:10] VITALS: BP 136/68; TEMP 96.7
[2022-04-24 05:35] LABS: BASOPHILS % (AUTO) 0.3 % (0.0-3.0); HEMATOCRIT 33.6 % (42.0-52.0); HEMOGLOBIN 11.1 g/dl (14.0-18.0); IMMATURE GRANULOCYTE # (AUTO) 0.3 (0.0-1.0); IMMATURE GRANULOCYTE % (AUTO) 4.1 % (0.0-5.0); LYMPHOCYTES # (AUTO) 1.4 K/uL (0.60-3.4); LYMPHOCYTES % (AUTO) 19.9 (10.0-50.0); MEAN CORPUSCULAR HEMOGLOBIN 31.2 pg (27.0-31.0); MEAN CORPUSCULAR VOLUME 94.4 fl (80.0-94.0); MONOCYTES # (AUTO) 0.8 K/uL (0.4-2.0); MONOCYTES % (AUTO) 11.3 (0-10); NEUTROPHILS # (AUTO) 4.5 K/ul (2.0-6.9); NEUTROPHILS % (AUTO) 64.4 % (42.2-75.2); PLATELET COUNT 152 10^3/uL (140-440); RDW COEFFICIENT OF VARIATION 13.5 % (11.6-14.8); RED BLOOD COUNT 3.56 10^6/ul (4.70-6.10)
[2022-04-24] MEDS: CARAFATE PO SCH ×2 (05:44→11:06)
[2022-04-24] MEDS: PROTONIX PO SCH (05:44)
[2022-04-24 05:54] LABS: ALANINE AMINOTRANSFERASE 14.8 U/L (0-50); ALBUMIN 3.08 g/dL (3.5-5.0); ALKALINE PHOSPHATASE 40.6 U/L (56-119); ASPARTATE AMINO TRANSFERASE 18.8 U/L (17-59); BILIRUBIN,TOTAL 0.43 mg/dL (0.2-1.3); BLOOD UREA NITROGEN 46.5 mg/dL (9-20); CALCIUM 7.46 mg/dL (8.4-10.2); CARBON DIOXIDE 36.1 mmol/L (22-30.0); CHLORIDE 95.3 mmol/L (98-107); CREATININE 1.12 mg/dL (0.60-1.10); GLUCOSE 101.2 mg/dL (74-106); POTASSIUM 4.28 mmol/L (3.5-5.1); SODIUM 131.8 mmol/L (134.5-145); TOTAL PROTEIN 5.05 g/dL (6.3-8.2)
[2022-04-24] MEDS: MYLANTA SUSP PO SCH ×2 (09:25→13:09)
[2022-04-24] MEDS: ANORO ELLIPTA 62.5-25 MCG INH IH SCH (09:25)
[2022-04-24] MEDS: ASTELIN 0.1% NAS SCH (09:25)
[2022-04-24] MEDS: MUCINEX PO SCH (09:26)
[2022-04-24] MEDS: COZAAR PO SCH (09:26)
[2022-04-24] MEDS: MIRALAX PO SCH (09:26)
[2022-04-24] MEDS: MINOXIDIL PO SCH (09:26)
[2022-04-24] MEDS: ZANAFLEX PO SCH (09:27)
[2022-04-24] MEDS: FLORASTOR PO SCH (09:27)
[2022-04-24] MEDS: HYTRIN PO SCH (09:27)
[2022-04-24] MEDS: XANAX PO SCH (09:27)
[2022-04-24] MEDS: COREG PO SCH (09:27)
[2022-04-24] MEDS: LEXAPRO PO SCH (09:27)
[2022-04-24] MEDS: CATAPRES PO SCH ×2 (09:28→13:10)
[2022-04-24] MEDS: PREDNISONE PO SCH (09:28)
--- NOTE | 2022-04-24 13:06 | DS ---
DATE OF SERVICE: 04/24/22 FINAL DIAGNOSIS: 1. Influenza B 2. Acute COPD exacerbation 3. Chronic respiratory failure 4. Chronic respiratory failure 5. Hypertension 6. Renal azotemia 7. Generalized edema from steroids improved. DISCHARGE INSTRUCTIONS: Followup appointment scheduled with Dr. Gonzalez's office on May 03 at 8:40 a.m. Should you have any questions or need to reschedule this you can contact their office at [phone]. They are now located at their new office [address] [place] [address]. Continue home oxygen continuous at 4L/min/nc and trilogy/bipap at night and when resting as before. MEDICATIONS AT DISCHARGE: Continue all other home medications. Albuterol 8 gm HFA two puff q.4-6hr p.r.n. Alprazolam (Xanax) 0.5 mg p.o. t.i.d. Amlodipine 5 mg p.o. daily Aspirin 81 mg p.o. bedtime Azelastine 137 mcg two spray intranasal b.i.d. Budesonide 0.5 mg/2 mL suspension for nebulization Carvedilol (Coreg) 12.5 mg b.i.d. Clonidine 0.2 mg p.o. 1400 Clonidine 0.1 mg p.o. bedtime Escitalopram 10 mg p.o. daily Lasix 40 mg p.o. daily Mucinex 1200 mg p.o. b.i.d. Minoxidil 5 mg p.o. b.i.d. Protonix 40 mg p.o. daily Miralax 17 gm p.o. b.i.d. Stiolto two puff INH daily Systane one drop both eyes 5 xday p.r.n. Tamsulosin 0.8 mg p.o. bedtime Tizanidine 4 mg p.o. b.i.d. NEW PRESCRIPTIONS: Prednisone 10 mg p.o. daily with food for five more days. Start 04/25/22 for lung inflammation. DISCONTINUED MEDICATIONS: Stop Amlodipine (Norvasc) DIET INSTRUCTIONS: Regular diet with 60 ounces of fluids daily, don't drink much more than that due to existing swelling. ACTIVITY: Up ad ej with frequent rest periods. Elevate upper and lower extremities as much as possible. No strenuous activity. SMOKING: N/A DISEASE SPECIFIC EDUCATION: Medications Followup Diet Activity HOSPITAL COURSE: This 81 year old /WHITE M presented to the emergency department with cough, congestion and fever. He had been feeling bad for 2 to 3 days and tested positive for influenza B. Chest x-ray showed changes associated with COPD. He has chronic respiratory failure and is on oxygen continuously. He initially required slightly more oxygen via nasal cannula. He was started on Tamiflu, Rocephin and IV steroids. He took several days to wean off steroids. At this point, he has been on p.o. Prednisone and tolerating well. Due to the use of steroids, he did develop some generalized edema and was given IV Lasix on two occasions. Edema resolved. BUN became slightly elevated but resolved on its own. Discontinued Amlodipine as he had continued swelling. Added one extra Clonidine for the day. Blood pressure was well-controlled. Will go home with Clonidine t.i.d. - no Amlodipine. Also will go home with Prednisone 10 mg. Will see in office. CODE STATUS: Do not resuscitate. SCRIBED BY: BEAR HOLLEY Ekg Tech scribed while in presence of service performed by Debbie Garcia APRN on 04/24/22 ([id number]) TIME SPENT: More than 60 minutes. NITIN
--- NOTE | 2022-04-24 14:58 | PN ---
DATE OF SERVICE: 04/21/22 SUBJECTIVE: 81 year old white male hospitalized with acute exacerbation of COPD. Patient's condition has now been steady. He still feels short of breath on exertion but overall he says that he is feeling a little bit better, coughing less. Today, he complained of reflux type symptoms. The patient is already on Protonix 40 twice a day. He was put on Prednisone 10 BID. The patient still has some swelling of the face with some swelling of the extremities. He is to continue the Amlodipine. REVIEW OF SYSTEMS: CONSTITUTIONAL: No night sweats. No fatigue, malaise, lethargy. No fever or chills. HEENT: Eyes: No visual changes. No eye pain. No eye discharge. ENT: No runny nose. No epistaxis. No sinus pain. No sore throat. No odynophagia. No congestion. RESPIRATORY: No cough, no congestion. No hemoptysis. No shortness of breath. CARDIOVASCULAR: No angina symptoms. No CHF symptoms. No atypical chest pain for CAD. No palpitations. No PND. No orthopnea. GASTROINTESTINAL: No abdominal pain. No nausea or vomiting. No diarrhea or constipation. No hematemesis. No hematochezia. GENITOURINARY: No urgency. No frequency. No dysuria. No hematuria. No obstructive symptoms. No discharge. No pain. No significant abnormal bleeding. MUSCULOSKELETAL: No musculoskeletal pain; no joint swelling. NEUROLOGICAL: No headache. No neck pain. No syncope. No seizures. No dizziness. PSYCHIATRIC: Not anxious. No depression. No suicidal thoughts. No homicidal thoughts. SKIN: No rash. No lesions. No wounds. ENDOCRINE: No unexplained weight loss. No weight gain. HEMATOLOGIC/LYMPHATIC: No anemia. No purpura. No petechiae. No prolonged or excessive bleeding. No palpable lymph nodes. PHYSICAL EXAMINATION: GENERAL: The patient is oriented to time, place and person. VITAL SIGNS: Temperature 98.6, pulse 77, repsiratory rate 16, blood pressure 116/76, pulse ox 97% on three liters. HEENT: Some edema of the face. Head normocephalic, atraumatic. Eyes: Extraocular muscles are intact. Pupils are equal, round and reactive to light and accommodation. Ears: No lesions. Nose appeared normal. Throat: No exudate or erythema. NECK: Supple. No JVD, no carotid bruit. No lymphadenopathy or thyromegaly. LUNGS: Decreased breath sounds but clear. Good air entry. Percussion note normal. Chest symmetrical. HEART: S1, S2, no S3. No murmurs. No cyanosis or clubbing. No ascites. Pulses: Dorsalis pedis and posterior tibial pulses +1 to +2 bilaterally. ABDOMEN: Soft. Nontender. Bowel sounds active. No CVA tenderness. No mass felt. EXTREMITIES: Swelling of the upper extremity and face. No edema. Full range of motion of all extremities, equal. NEUROLOGIC: No focal deficit. Cranial nerves II through XII are grossly intact. No headache. No double vision. SKIN: Not dry. Intact. Turgor - normal. LYMPHATIC: No palpable lymph nodes/no lymphedema. MUSCULOSKELETAL: Normal joints with no swelling. Muscle tone is normal. LABS: Hemoglobin 11.6, hematocrit 34, WBC 6,000, normal differential, creatinine 1.4, BUN 53, potassium 4.1 ASSESSMENT: 1. Exacerbation of COPD with end stage COPD on home oxygen with chronic respiratory failure 2. Coronary artery disease 3. Hypertension 4. Dyslipidemia 5. Swelling of the face and upper extremities, likely from steroid therapy, fluid retention. PLAN: 1. Discontinue Solu Cortef to Prednisone 10 BID 2. Discontinue Amlodipine 3. Add Carafate 1 gram QID for reflux 4. Continue Protonix 5. He is advised to lose weight, 15 lbs 6. Pulmonary rehab 2. 3. TIME SPENT: More than 35 minutes. Plan and coordination of the patient's care discussed in the presence of nurse. NITIN
--- NOTE | 2022-04-24 15:06 | PN ---
DATE OF SERVICE: 04/22/22 SUBJECTIVE: 81 year old white male hospitalized with exacerbation of COPD and influenza B. His condition has improved to the point where he is afebrile and getting his strength back but still has shortness of breath on exertion. He is still coughing up white sputum. REVIEW OF SYSTEMS: CONSTITUTIONAL: No night sweats. No fatigue, malaise, lethargy. No fever or chills. HEENT: Eyes: No visual changes. No eye pain. No eye discharge. ENT: No runny nose. No epistaxis. No sinus pain. No sore throat. No odynophagia. No congestion. RESPIRATORY: Coughing up white sputum. no congestion. No hemoptysis. Shortness of breath on minimal exertiion as usual. CARDIOVASCULAR: No angina symptoms. No CHF symptoms. No atypical chest pain for CAD. No palpitations. No PND. No orthopnea. GASTROINTESTINAL: Appetite is improving. No abdominal pain. No nausea or vomiting. No diarrhea or constipation. No hematemesis. No hematochezia. GENITOURINARY: No urgency. No frequency. No dysuria. No hematuria. No obstructive symptoms. No discharge. No pain. No significant abnormal bleeding. MUSCULOSKELETAL: No musculoskeletal pain; no joint swelling. NEUROLOGICAL: No headache. No neck pain. No syncope. No seizures. No dizziness. PSYCHIATRIC: Not anxious. No depression. No suicidal thoughts. No homicidal thoughts. SKIN: No rash. No lesions. No wounds. ENDOCRINE: No unexplained weight loss. No weight gain. HEMATOLOGIC/LYMPHATIC: No anemia. No purpura. No petechiae. No prolonged or excessive bleeding. No palpable lymph nodes. PHYSICAL EXAMINATION: GENERAL: The patient is in no distress. VITAL SIGNS: Temperature 97.6, pulse 80, respiratory rate 18, blood pressure 150/70, pulse ox 94% HEENT: Head normocephalic, atraumatic. Eyes: Extraocular muscles are intact. Pupils are equal, round and reactive to light and accommodation. Ears: No lesions. Nose appeared normal. Throat: No exudate or erythema. NECK: Supple. No JVD, no carotid bruit. No lymphadenopathy or thyromegaly. LUNGS: Decreased breath sounds. Percussion note normal. Chest symmetrical. HEART: S1, S2, no S3. No murmurs. No cyanosis or clubbing. No ascites. Pulses: Dorsalis pedis and posterior tibial pulses +1 to +2 bilaterally. ABDOMEN: Soft. Nontender. Bowel sounds active. No CVA tenderness. No mass felt. EXTREMITIES: No edema. Full range of motion of all extremities, equal. NEUROLOGIC: No focal deficit. Cranial nerves II through XII are grossly intact. No headache. No double vision. SKIN: Not dry. Intact. Turgor - normal. LYMPHATIC: No palpable lymph nodes/no lymphedema. MUSCULOSKELETAL: Normal joints with no swelling. Muscle tone is normal. LABS: Hemoglobin 12, hematocrit 36, WBC 7,300, normal differential, creatinine 1.3, BUN 57, potassium 4.5 ASSESSMENT: Acute exacerbation of COPD with influenza B, both seems to be getting under control PLAN: 1. Continue antibiotics, nebs, steroids 2. He was advised pulmonary rehab and discussed this in detail 3. Lasix given yesterday and his face is much better with less swelling Condition; Stabilizing TIME SPENT: More than 35 minutes. Plan and coordination of the patient's care discussed in the presence of nurse. NITIN
--- NOTE | 2022-04-24 15:09 | PN ---
DATE OF SERVICE: 04/23/22 SUBJECTIVE: Patient was seen and examined with the nurse practitioner. COPD exacerbation seems to be stable with some improvement. We again discussed pulmonary rehab which he has declined. REVIEW OF SYSTEMS: CONSTITUTIONAL: No night sweats. No fatigue, malaise, lethargy. No fever or chills. HEENT: Eyes: No visual changes. No eye pain. No eye discharge. ENT: No runny nose. No epistaxis. No sinus pain. No sore throat. No odynophagia. No congestion. RESPIRATORY: No cough, no congestion. No hemoptysis. No shortness of breath. CARDIOVASCULAR: No angina symptoms. No CHF symptoms. No atypical chest pain for CAD. No palpitations. No PND. No orthopnea. GASTROINTESTINAL: No abdominal pain. No nausea or vomiting. No diarrhea or constipation. No hematemesis. No hematochezia. GENITOURINARY: No urgency. No frequency. No dysuria. No hematuria. No obstructive symptoms. No discharge. No pain. No significant abnormal bleeding. MUSCULOSKELETAL: No musculoskeletal pain; no joint swelling. NEUROLOGICAL: No headache. No neck pain. No syncope. No seizures. No dizziness. PSYCHIATRIC: Not anxious. No depression. No suicidal thoughts. No homicidal thoughts. SKIN: No rash. No lesions. No wounds. ENDOCRINE: No unexplained weight loss. No weight gain. HEMATOLOGIC/LYMPHATIC: No anemia. No purpura. No petechiae. No prolonged or excessive bleeding. No palpable lymph nodes. PHYSICAL EXAMINATION: GENERAL: The patient is in no distress. HEENT: Head normocephalic, atraumatic. Eyes: Extraocular muscles are intact. Pupils are equal, round and reactive to light and accommodation. Ears: No lesions. Nose appeared normal. Throat: No exudate or erythema. NECK: Supple. No JVD, no carotid bruit. No lymphadenopathy or thyromegaly. LUNGS: Good air entry. Percussion note normal. Chest symmetrical. HEART: S1, S2, no S3. No murmurs. No cyanosis or clubbing. No ascites. Pulses: Dorsalis pedis and posterior tibial pulses +1 to +2 bilaterally. ABDOMEN: Soft. Nontender. Bowel sounds active. No CVA tenderness. No mass felt. EXTREMITIES: No edema. Full range of motion of all extremities, equal. NEUROLOGIC: No focal deficit. Cranial nerves II through XII are grossly intact. No headache. No double vision. SKIN: Not dry. Intact. Turgor - normal. LYMPHATIC: No palpable lymph nodes/no lymphedema. MUSCULOSKELETAL: Normal joints with no swelling. Muscle tone is normal. TIME SPENT: More than 35 minutes. Plan and coordination of the patient's care discussed in the presence of nurse. NITIN
== END 2022-04-24 14:15 | disposition home or self-care (01) | DRG 190 ==
LOC: ED 14:34 → MEDSURG A 16:41
PROVIDERS: ADMIT Internal Medicine; ATTEND Internal Medicine
DX: F41.1 Generalized anxiety disorder; K21.9 Gastro-esophageal reflux disease without esophagitis; I10 Essential (primary) hypertension; M79.674 Pain in right toe(s); R06.02 Shortness of breath; Z79.899 Other long term (current) drug therapy; E78.5 Hyperlipidemia, unspecified; I25.10 Atherosclerotic heart disease of native coronary artery without angina pectoris; R79.89 Other specified abnormal findings of blood chemistry; J18.9 Pneumonia, unspecified organism; M79.10 Myalgia, unspecified site; E87.1 Hypo-osmolality and hyponatremia; Z79.82 Long term (current) use of aspirin; D75.1 Secondary polycythemia; J44.1 Chronic obstructive pulmonary disease with (acute) exacerbation; R60.9 Edema, unspecified; J96.10 Chronic respiratory failure, unspecified whether with hypoxia or hypercapnia; G47.30 Sleep apnea, unspecified; Z51.81 Encounter for therapeutic drug level monitoring; J10.1 Influenza due to other identified influenza virus with other respiratory manifestations; Z99.81 Dependence on supplemental oxygen

== ENCOUNTER 2022-04-28 06:02 | Inpatient (IN) ==
[2022-04-28] MEDS ORDERED: DUONEB NEB STA (06:03)
[2022-04-28] MEDS ORDERED: LASIX IVP STA (06:03)
[2022-04-28] MEDS ORDERED: URO-JET MUCOUSMEMB STA (06:05)
--- NOTE | 2022-04-28 06:10 | ED.PDOC ---
General <CONI MARTINEZ MD - Last Filed: 04/28/22 07:09> ED Provider: Dr. CONI MARTINEZ MD Chief Complaint: Respiratory Complaint Stated Complaint: Patient presents with progressive dyspnea and weakness over the past 2 days. He has a history of CHF and COPD and was just discharged from the hospital 3 days ago. Denies fever, chills, chest pain. He has orthopnea, increased weight and peripheral edema. Time Seen by Provider: 04/28/22 06:03 Primary Care Provider: HAILEY SCHULTE MD Nursing and Triage Documentation Reviewed and Agree: Yes Does patient meet sepsis criteria?: No System Inflammatory Response Syndrome: Not Applicable Sepsis Protocol: For patient's 13 years and over: Temp is 96.8 and below OR 101 and greater Pulse >90 BPM Resp >20/minute Acutely Altered Mental Status Are patient's symptoms suggestive of a new infection, such as: -Pneumonia -Skin, Soft Tissue -Endocarditis -UTI -Bone, Joint Infection -Implantable Device -Acute Abdominal Infection -Wound Infection -Meningitis -Blood Stream Catheter Infection -Unknown Review of Systems <CONI MARTINEZ MD - Last Filed: 04/28/22 07:09> Review Of Systems Constitutional: Reports Weakness and Loss of appetite Eyes: Reports No symptoms Ears, Nose, Mouth, Throat: Reports No symptoms Respiratory: Reports Cough, Orthopnea and Short of air Cardiac: Reports Edema GI: Reports No symptoms : Reports No symptoms Musculoskeletal: Reports No symptoms Skin: Reports No symptoms Neurological: Reports No symptoms Endocrine: Reports No symptoms Hematologic/Lymphatic: Reports No symptoms All Other Systems: Reviewed and Negative PFSH <CONI MARTINEZ MD - Last Filed: 04/28/22 07:09> Medical History (Updated 04/28/22 @ 07:45 by DAMON SANTIAGO MD) Anxiety Arteriosclerosis Blood disease BPH (benign prostatic hyperplasia) CAD (coronary artery disease) Cancer of skin of external nose (~10/04/20) Chronic bronchitis Chronic hyponatremia Chronic respiratory failure CKD (chronic kidney disease) stage 3, GFR 30-59 ml/min COPD (chronic obstructive pulmonary disease) Diverticulosis Emphysema of lung Enlarged heart Gastroesophageal reflux disease Hypertension Osteoarthritis Oxygen dependent Prostate enlargement Sciatica, right side Seasonal allergies Secondary polycythemia Sleep apnea TMJ (temporomandibular joint disorder) Family History Mother Obstetric anesthesia problems Emphysema of lung Social History Smoking and tobacco status: Former smoker History of recent travel: No Surgical History History of bilateral cataract extraction History of coronary artery stent placement History of tonsillectomy Physical Exam <CONI MARTINEZ MD - Last Filed: 04/28/22 07:09> Physical Exam Appearance: Reports Ill-appearing, No pain distress, Obese and Other (Patient coughing up pink, frothy, tinged sputum. He is in severe respiratory distress.) Ill-appearing: Severe Pain Distress: None Eyes: Reports Not Examined ENT: Reports Nose normal and Oropharynx normal Neck: Supple Respiratory: Reports Airway patent, Breath sounds equal, Breath sounds diminished and Crackles Cardiovascular: Reports RRR, No rub and No murmur GI/: Reports Soft, Nontender, No masses and Bowel sounds normal Musculoskeletal: Reports Other (Pitting edema bilaterally.) Skin: Reports Warm and Dry Neurological: Reports Alert and Oriented Psychiatric: Reports Affect appropriate, Mood appropriate and Anxious Interpretation <CONI MARTINEZ MD - Last Filed: 04/28/22 07:09> Radiology Interpretation Radiology Interpretation By: Radiologist Exam Interpreted: Portable CXR (increasing right sided pneumonia) EKG Interpretation Time of EKG #1: 06:43 Rate: Normal Rhythm: Sinus Ectopy: PVCs [place]: NL ST Segment: Normal Interpretation: normal sinus rhythm with occasional PVCs <DAMON SANTIAGO MD - Last Filed: 04/28/22 07:45> Re-Evaluation Time of Re-Evaluation: 07:42 Status: Improved Vital Signs Stable: Yes Pain Level: 0 Appearance: Other Lungs: Other Skin: Warm and Dry CV: RRR Additional Comments: nursing staff he arrived "edematous "and appeared volume overloaded Re-Evaluation Time of Re-Evaluation: 07:43 Status: Improved Vital Signs Stable: Yes Pain Level: 0 Appearance: NAD Skin: Warm and Dry CV: RRR Additional Comments: appeared to have 2 liters of urine in morales with corresponding improvement in resp status <DAMON SANTIAGO MD - Last Filed: 04/28/22 07:45> Critical Care Note Total Critical Care Time (mins): 30 Course <CONI MARTINEZ MD - Last Filed: 04/28/22 07:09> Course Hematology/Chemistry: 04/28/22 06:10 04/28/22 06:10 Orders, Labs, Meds: Lab Review 04/28/22 04/28/22 04/28/22 06:00 06:08 06:10 WBC 16.12 H D RBC 4.24 L Hgb 13.3 L Hct 39.9 L MCV 94.1 H MCH 31.4 H MCHC 33.3 RDW Coeff of Bhaskar 13.7 Plt Count 195 Immature Gran % (Auto) 3.1 Neut % (Auto) 79.2 H Lymph % (Auto) 6.8 L [place] % (Auto) 10.2 H Eos % (Auto) 0.4 Baso % (Auto) 0.3 Neut # (Auto) 12.8 H Lymph # (Auto) 1.1 [place] # (Auto) 1.7 Eos # (Auto) 0.1 Baso # (Auto) 0.1 Immature Gran # (Auto) 0.5 Puncture Site Rb Base Excess 9.2 H O2 Saturation 98.9 H ABG pH 7.38 ABG pCO2 58.0 H ABG pO2 128.0 H ABG HCO3 34.3 H ABG Total CO2 36.1 H [place] Test + Hemoglobin 1.3 Oxyhemoglobin 95.1 Carboxyhemoglobin 2.9 H Total Hemoglobin 14.0 O2 Delivery Device Non rebreather Oxygen Liter Flow 15.00 FiO2 % 100.0 Sodium Potassium Chloride Carbon Dioxide Anion Gap BUN Creatinine Estimated GFR (MDRD) BUN/Creatinine Ratio Glucose Lactic Acid < 0.50 L Calcium Total Bilirubin AST ALT Alkaline Phosphatase Total Creatine Kinase Troponin I NT-Pro-B Natriuret Pep Total Protein Albumin Globulin Albumin/Globulin Ratio Urine Color Urine Clarity Urine pH Ur Specific [place] Urine Protein Urine Glucose (UA) Urine Ketones Urine Blood Urine Nitrite Urine Bilirubin Urine Urobilinogen Ur Leukocyte Esterase Urine Microscopic RBC Ur Squamous Epith Cells 04/28/22 04/28/22 04/28/22 06:10 06:10 06:10 WBC RBC Hgb Hct MCV MCH MCHC RDW Coeff of Bhaskar Plt Count Immature Gran % (Auto) Neut % (Auto) Lymph % (Auto) [place] % (Auto) Eos % (Auto) Baso % (Auto) Neut # (Auto) Lymph # (Auto) [place] # (Auto) Eos # (Auto) Baso # (Auto) Immature Gran # (Auto) Puncture Site Base Excess O2 Saturation ABG pH ABG pCO2 ABG pO2 ABG HCO3 ABG Total CO2 [place] Test Hemoglobin Oxyhemoglobin Carboxyhemoglobin Total Hemoglobin O2 Delivery Device Oxygen Liter Flow FiO2 % Sodium 131.3 L Potassium 4.62 Chloride 93.2 L Carbon Dioxide 35.0 H Anion Gap 7.72 BUN 28.6 H Creatinine 1.07 Estimated GFR (MDRD) 66.00 BUN/Creatinine Ratio 26.72 Glucose 118.6 H Lactic Acid Calcium 8.51 Total Bilirubin 0.62 AST 31.9 ALT 33.4 Alkaline Phosphatase 60.9 Total Creatine Kinase 54.1 L Troponin I 0.188 H NT-Pro-B Natriuret Pep 736.000 H Total Protein 6.56 Albumin 4.01 Globulin 2.55 Albumin/Globulin Ratio 1.57 Urine Color Urine Clarity Urine pH Ur Specific [place] Urine Protein Urine Glucose (UA) Urine Ketones Urine Blood Urine Nitrite Urine Bilirubin Urine Urobilinogen Ur Leukocyte Esterase Urine Microscopic RBC Ur Squamous Epith Cells 04/28/22 06:55 WBC RBC Hgb Hct MCV MCH MCHC RDW Coeff of Bhaskar Plt Count Immature Gran % (Auto) Neut % (Auto) Lymph % (Auto) [place] % (Auto) Eos % (Auto) Baso % (Auto) Neut # (Auto) Lymph # (Auto) [place] # (Auto) Eos # (Auto) Baso # (Auto) Immature Gran # (Auto) Puncture Site Base Excess O2 Saturation ABG pH ABG pCO2 ABG pO2 ABG HCO3 ABG Total CO2 [place] Test Hemoglobin Oxyhemoglobin Carboxyhemoglobin Total Hemoglobin O2 Delivery Device Oxygen Liter Flow FiO2 % Sodium Potassium Chloride Carbon Dioxide Anion Gap BUN Creatinine Estimated GFR (MDRD) BUN/Creatinine Ratio Glucose Lactic Acid Calcium Total Bilirubin AST ALT Alkaline Phosphatase Total Creatine Kinase Troponin I NT-Pro-B Natriuret Pep Total Protein Albumin Globulin Albumin/Globulin Ratio Urine Color Yellow Urine Clarity Clear Urine pH 7.0 Ur Specific [place] 1.020 Urine Protein 1+ H Urine Glucose (UA) Negative Urine Ketones Negative Urine Blood 2+ H Urine Nitrite Negative Urine Bilirubin Negative Urine Urobilinogen 0.2 Ur Leukocyte Esterase Negative Urine Microscopic RBC 20-30 Ur Squamous Epith Cells Not present Orders Category Date Time Status ABG DRAW REQUEST Stat CARDIO 04/28/22 06:03 Completed EKG-(ED ONLY) Stat CARDIO 04/28/22 06:03 Completed NEBULIZER TREATMENT Stat CARDIO 04/28/22 06:05 Completed Insert Morales [ED CATHETER INSERTION AND CARE] .ONCE EMERGENCY 04/28/22 06:05 Active ABG COOX Stat LAB 04/28/22 06:08 Completed BLOOD CULTURE (ED ONLY) Stat LAB 04/28/22 06:47 Received BNP [NT-PROBNP] Stat LAB 04/28/22 06:10 Completed CBC W/ AUTO DIFF Stat LAB 04/28/22 06:10 Completed CK [CREATINE KINASE] Stat LAB 04/28/22 06:10 Completed CMP [COMPREHENSIVE METABOLIC PANEL] Stat LAB 04/28/22 06:10 Completed COVID [SARS COV-2 RNA RAPID BALWINDER] Stat LAB 04/28/22 06:55 Received LACTIC ACID Stat LAB 04/28/22 06:00 Completed TROPONIN I Stat LAB 04/28/22 06:10 Completed URINALYSIS C & S IF INDICATED Stat LAB 04/28/22 06:55 Completed Ceftriaxone Sodium [Rocephin 2 gm Vial] MEDS 04/28/22 06:57 Discontinued 2 gm .ROUTE .STK-MED ONE Ceftriaxone Sodium [Rocephin 2 gm Vial] 2 gm MEDS 04/28/22 06:33 Discontinued 0.9 % Sodium Chloride [Sodium Chloride 100Ml] 100 ml IV ONCE Furosemide [Lasix] MEDS 04/28/22 06:03 Discontinued 100 mg IVP ONCE STA Ipratropium/Albuterol Neb [Duoneb] MEDS 04/28/22 06:03 Discontinued 3 ml NEB ONCE STA Lidocaine (Uro-Jet) [Uro-Jet] MEDS 04/28/22 06:05 Discontinued 10 ml MUCOUSMEMB ONCE STA CXR [CHEST, 1V AP ONLY] Stat RADS 04/28/22 06:03 Completed Medications Discontinued Medications Generic Name Dose Route Start Last Admin Trade Name Freq PRN Reason Stop Dose Admin Albuterol/Ipratropium 3 ml 04/28/22 06:03 04/28/22 06:30 Ipratropium/Albuterol Vial.Neb NEB 04/28/22 06:04 3 ml ONCE STA Administration Furosemide 100 mg 04/28/22 06:03 04/28/22 06:30 Furosemide Inj 100 Mg/10 Ml Vial IVP 04/28/22 06:04 100 mg ONCE STA Administration Ceftriaxone Sodium 2 gm/ 100 mls @ 100 mls/hr 04/28/22 06:33 Sodium Chloride IV 04/28/22 07:32 ONCE ONE Lidocaine HCl 10 ml 04/28/22 06:05 04/28/22 06:30 Lidocaine 10 Ml Jel.Pf.Elizabeth (Urojet) MUCOUSMEMB 04/28/22 06:06 10 ml ONCE STA Administration Vital Signs: Temp Pulse Resp BP Pulse Ox 04/28/22 06:03 97.8 F 101 H 19 194/106 H 92 L <DAMON SANTIAGO MD - Last Filed: 04/28/22 07:45> Course Orders, Labs, Meds: Lab Review 04/28/22 04/28/22 04/28/22 06:00 06:08 06:10 WBC 16.12 H D RBC 4.24 L Hgb 13.3 L Hct 39.9 L MCV 94.1 H MCH 31.4 H MCHC 33.3 RDW Coeff of Bhaskar 13.7 Plt Count 195 Immature Gran % (Auto) 3.1 Neut % (Auto) 79.2 H Lymph % (Auto) 6.8 L [place] % (Auto) 10.2 H Eos % (Auto) 0.4 Baso % (Auto) 0.3 Neut # (Auto) 12.8 H Lymph # (Auto) 1.1 [place] # (Auto) 1.7 Eos # (Auto) 0.1 Baso # (Auto) 0.1 Immature Gran # (Auto) 0.5 Puncture Site Rb Base Excess 9.2 H O2 Saturation 98.9 H ABG pH 7.38 ABG pCO2 58.0 H ABG pO2 128.0 H ABG HCO3 34.3 H ABG Total CO2 36.1 H [place] Test + Hemoglobin 1.3 Oxyhemoglobin 95.1 Carboxyhemoglobin 2.9 H Total Hemoglobin 14.0 O2 Delivery Device Non rebreather Oxygen Liter Flow 15.00 FiO2 % 100.0 Sodium Potassium Chloride Carbon Dioxide Anion Gap BUN Creatinine Estimated GFR (MDRD) BUN/Creatinine Ratio Glucose Lactic Acid < 0.50 L Calcium Total Bilirubin AST ALT Alkaline Phosphatase Total Creatine Kinase Troponin I NT-Pro-B Natriuret Pep Total Protein Albumin Globulin Albumin/Globulin Ratio Urine Color Urine Clarity Urine pH Ur Specific [place] Urine Protein Urine Glucose (UA) Urine Ketones Urine Blood Urine Nitrite Urine Bilirubin Urine Urobilinogen Ur Leukocyte Esterase Urine Microscopic RBC Ur Squamous Epith Cells 04/28/22 04/28/22 04/28/22 06:10 06:10 06:10 WBC RBC Hgb Hct MCV MCH MCHC RDW Coeff of Bhaskar Plt Count Immature Gran % (Auto) Neut % (Auto) Lymph % (Auto) [place] % (Auto) Eos % (Auto) Baso % (Auto) Neut # (Auto) Lymph # (Auto) [place] # (Auto) Eos # (Auto) Baso # (Auto) Immature Gran # (Auto) Puncture Site Base Excess O2 Saturation ABG pH ABG pCO2 ABG pO2 ABG HCO3 ABG Total CO2 [place] Test Hemoglobin Oxyhemoglobin Carboxyhemoglobin Total Hemoglobin O2 Delivery Device Oxygen Liter Flow FiO2 % Sodium 131.3 L Potassium 4.62 Chloride 93.2 L Carbon Dioxide 35.0 H Anion Gap 7.72 BUN 28.6 H Creatinine 1.07 Estimated GFR (MDRD) 66.00 BUN/Creatinine Ratio 26.72 Glucose 118.6 H Lactic Acid Calcium 8.51 Total Bilirubin 0.62 AST 31.9 ALT 33.4 Alkaline Phosphatase 60.9 Total Creatine Kinase 54.1 L Troponin I 0.188 H NT-Pro-B Natriuret Pep 736.000 H Total Protein 6.56 Albumin 4.01 Globulin 2.55 Albumin/Globulin Ratio 1.57 Urine Color Urine Clarity Urine pH Ur Specific [place] Urine Protein Urine Glucose (UA) Urine Ketones Urine Blood Urine Nitrite Urine Bilirubin Urine Urobilinogen Ur Leukocyte Esterase Urine Microscopic RBC Ur Squamous Epith Cells 04/28/22 06:55 WBC RBC Hgb Hct MCV MCH MCHC RDW Coeff of Bhaskar Plt Count Immature Gran % (Auto) Neut % (Auto) Lymph % (Auto) [place] % (Auto) Eos % (Auto) Baso % (Auto) Neut # (Auto) Lymph # (Auto) [place] # (Auto) Eos # (Auto) Baso # (Auto) Immature Gran # (Auto) Puncture Site Base Excess O2 Saturation ABG pH ABG pCO2 ABG pO2 ABG HCO3 ABG Total CO2 [place] Test Hemoglobin Oxyhemoglobin Carboxyhemoglobin Total Hemoglobin O2 Delivery Device Oxygen Liter Flow FiO2 % Sodium Potassium Chloride Carbon Dioxide Anion Gap BUN Creatinine Estimated GFR (MDRD) BUN/Creatinine Ratio Glucose Lactic Acid Calcium Total Bilirubin AST ALT Alkaline Phosphatase Total Creatine Kinase Troponin I NT-Pro-B Natriuret Pep Total Protein Albumin Globulin Albumin/Globulin Ratio Urine Color Yellow Urine Clarity Clear Urine pH 7.0 Ur Specific [place] 1.020 Urine Protein 1+ H Urine Glucose (UA) Negative Urine Ketones Negative Urine Blood 2+ H Urine Nitrite Negative Urine Bilirubin Negative Urine Urobilinogen 0.2 Ur Leukocyte Esterase Negative Urine Microscopic RBC 20-30 Ur Squamous Epith Cells Not present Orders Category Date Time Status ABG DRAW REQUEST Stat CARDIO 04/28/22 06:03 Completed EKG-(ED ONLY) Stat CARDIO 04/28/22 06:03 Completed NEBULIZER TREATMENT Stat CARDIO 04/28/22 06:05 Completed Insert [place] [ED CATHETER INSERTION AND CARE] .ONCE EMERGENCY 04/28/22 06:05 Active ABG COOX Stat LAB 04/28/22 06:08 Completed BLOOD CULTURE (ED ONLY) Stat LAB 04/28/22 06:47 Received BNP [NT-PROBNP] Stat LAB 04/28/22 06:10 Completed CBC W/ AUTO DIFF Stat LAB 04/28/22 06:10 Completed CK [CREATINE KINASE] Stat LAB 04/28/22 06:10 Completed CMP [COMPREHENSIVE METABOLIC PANEL] Stat LAB 04/28/22 06:10 Completed COVID [SARS COV-2 RNA RAPID BALWINDER] Stat LAB 04/28/22 06:55 Received LACTIC ACID Stat LAB 04/28/22 06:00 Completed TROPONIN I Stat LAB 04/28/22 06:10 Completed URINALYSIS C & S IF INDICATED Stat LAB 04/28/22 06:55 Completed Ceftriaxone Sodium [Rocephin 2 gm Vial] MEDS 04/28/22 06:57 Discontinued 2 gm .ROUTE .STK-MED ONE Ceftriaxone Sodium [Rocephin 2 gm Vial] 2 gm MEDS 04/28/22 06:33 Discontinued 0.9 % Sodium Chloride [Sodium Chloride 100Ml] 100 ml IV ONCE Furosemide [Lasix] MEDS 04/28/22 06:03 Discontinued 100 mg IVP ONCE STA Ipratropium/Albuterol Neb [Duoneb] MEDS 04/28/22 06:03 Discontinued 3 ml NEB ONCE STA Lidocaine (Uro-Jet) [Uro-Jet] MEDS 04/28/22 06:05 Discontinued 10 ml MUCOUSMEMB ONCE STA CXR [CHEST, 1V AP ONLY] Stat RADS 04/28/22 06:03 Completed Medications Discontinued Medications Generic Name Dose Route Start Last Admin Trade Name Freq PRN Reason Stop Dose Admin Albuterol/Ipratropium 3 ml 04/28/22 06:03 04/28/22 06:30 Ipratropium/Albuterol Vial.Neb NEB 04/28/22 06:04 3 ml ONCE STA Administration Furosemide 100 mg 04/28/22 06:03 04/28/22 06:30 Furosemide Inj 100 Mg/10 Ml Vial IVP 04/28/22 06:04 100 mg ONCE STA Administration Ceftriaxone Sodium 2 gm/ 100 mls @ 100 mls/hr 04/28/22 06:33 Sodium Chloride IV 04/28/22 07:32 ONCE ONE Lidocaine HCl 10 ml 04/28/22 06:05 04/28/22 06:30 Lidocaine 10 Ml Jel.Pf.Elizabeth (Urojet) MUCOUSMEMB 04/28/22 06:06 10 ml ONCE STA Administration Vital Signs: Temp Pulse Resp BP Pulse Ox 04/28/22 06:03 97.8 F 101 H 19 194/106 H 92 L Discharge Plan Discharge Patient Disposition: ADMITTED INPATIENT Discharge Problem: Pneumonia, Volume overload Prescriptions: No Action terazosin 5 mg capsule See Rx Instructions .ROUTE .COMPLEX Qty: 90 1RF Dose Instruction: TAKE 1 CAPSULE BY MOUTH EVERY DAY Rx Instructions: TAKE 1 CAPSULE BY MOUTH EVERY DAY alprazolam [Xanax] 0.5 mg tablet 0.5 mg PO TID Qty: 90 2RF carvedilol [Coreg] 6.25 mg tablet 12.5 mg PO BID Qty: 180 1RF Rx Instructions: must administer with a meal/food aspirin 81 MG tablet,delayed release (DR/EC) 81 mg PO BEDTIME budesonide 0.5 mg/2 mL Suspension For Nebulization 0.5 mg inhalation BID guaifenesin [Mucinex] 600 mg Tablet Extended Release 12hr 1,200 mg PO BID clonidine HCl 0.1 mg tablet 0.2 mg PO 1400 pantoprazole [Protonix] 40 MG tablet,delayed release (DR/EC) 40 mg PO DAILY Qty: 30 0RF tizanidine 4 mg tablet 4 mg PO BID Label Comments: TAKE 1 TABLET BY MOUTH TWICE DAILY clonidine HCl 0.1 mg Tablet 0.1 mg PO DAILY Qty: 30 0RF prednisone 10 mg Tablet 10 mg PO DAILY Qty: 5 0RF tamsulosin 0.4 MG capsule 0.8 mg PO BEDTIME albuterol sulfate [Ventolin HFA] 8 GM HFA aerosol inhaler 2 puff inhalation Q4-6H PRN (Reason: shortness of air) albuterol sulfate 1 VIAL solution for nebulization 1 vial NEB QID losartan 100 mg Tablet 50 mg PO BID Systane (propylene glycol) 0.4-0.3 % Drops 1 drp BOTHEYES 5XD PRN (Reason: Dry Eyes) minoxidil 10 mg tablet 5 mg PO BID Label Comments: TAKE 1/2 TABLET BY MOUTH TWICE DAILY Stiolto Respimat 2.5-2.5 mcg/actuation mist 2 puff INHALATION DAILY Label Comments: INHALE 2 PUFFS BY MOUTH ONCE DAILY polyethylene glycol 3350 [Miralax] 17 gram Powder In Packet 17 g PO BID furosemide [Lasix] 20 mg tablet 40 mg PO DAILY escitalopram oxalate 10 mg tablet 10 mg PO DAILY clonidine HCl 0.1 mg Tablet 0.1 mg PO BEDTIME azelastine 137 mcg (0.1 %) Aerosol,[place] 2 spray INTRANASAL BID Did you review [place] DOUBLER OPERATOR for ALL controlled substances?: Not Applicable ED Provider: CONI MARTINEZ Condition: Poor <CONI MARTINEZ MD - Last Filed: 04/28/22 07:09> Physician Progress Note: []
[2022-04-28 06:14] LABS: BASOPHILS # (AUTO) 0.1 K/uL (0-0.2); BASOPHILS % (AUTO) 0.3 % (0.0-3.0); EOSINOPHILS # (AUTO) 0.1 K/ul (0.0-0.7); EOSINOPHILS % (AUTO) 0.4 % (0.0-7.0); HEMATOCRIT 39.9 % (42.0-52.0); HEMOGLOBIN 13.3 g/dl (14.0-18.0); IMMATURE GRANULOCYTE # (AUTO) 0.5 (0.0-1.0); IMMATURE GRANULOCYTE % (AUTO) 3.1 % (0.0-5.0); LYMPHOCYTES # (AUTO) 1.1 K/uL (0.60-3.4); LYMPHOCYTES % (AUTO) 6.8 (10.0-50.0); MEAN CORPUSCULAR HEMOGLOBIN 31.4 pg (27.0-31.0); MEAN CORPUSCULAR HGB CONC 33.3 (31.8-35.4); MEAN CORPUSCULAR VOLUME 94.1 fl (80.0-94.0); MONOCYTES # (AUTO) 1.7 K/uL (0.4-2.0); MONOCYTES % (AUTO) 10.2 (0-10); NEUTROPHILS # (AUTO) 12.8 K/ul (2.0-6.9); NEUTROPHILS % (AUTO) 79.2 % (42.2-75.2); PLATELET COUNT 195 10^3/uL (140-440); RDW COEFFICIENT OF VARIATION 13.7 % (11.6-14.8); RED BLOOD COUNT 4.24 10^6/ul (4.70-6.10); WHITE BLOOD COUNT 16.12 K/ul (4.2-10.2)
[2022-04-28 06:14] LABS: ABG O2 HGB 95.1 % (95-100); ABG PH 7.38 (7.35-7.45); BEecf 9.2 (-2.0-3.0); COHb 2.9 (0.5-1.5); HCO3 34.3 (21-28); MetHb 1.3 (0-1.5); TCO2 36.1 (19-24); sO2 98.9 % (94-98)
[2022-04-28 06:28] LABS: ALANINE AMINOTRANSFERASE 33.4 U/L (0-50); ALBUMIN 4.01 g/dL (3.5-5.0); ALKALINE PHOSPHATASE 60.9 U/L (56-119); ASPARTATE AMINO TRANSFERASE 31.9 U/L (17-59); BILIRUBIN,TOTAL 0.62 mg/dL (0.2-1.3); BLOOD UREA NITROGEN 28.6 mg/dL (9-20); CALCIUM 8.51 mg/dL (8.4-10.2); CHLORIDE 93.2 mmol/L (98-107); CREATININE 1.07 mg/dL (0.60-1.10); GLUCOSE 118.6 mg/dL (74-106); POTASSIUM 4.62 mmol/L (3.5-5.1); SODIUM 131.3 mmol/L (134.5-145); TOTAL PROTEIN 6.56 g/dL (6.3-8.2)
--- NOTE | 2022-04-28 06:29 | DI ---
EXAM: SINGLE VIEW OF THE CHEST. History: Dyspnea. Comparison: Chest radiograph 04/16/2022, chest CT 09/14. No acute FINDINGS: Coronary calcifications. Heart size is upper limits of normal. Emphysema. Increasing ri ght mid to lower lung consolidation and there may be loculated right pleural fluid. No acute osseous abnormalities. Calcified granulomas are again seen. Impression: 1. Increasing right mid to lower lung pneumonia and there may be loculated right pleural fluid. 2. Chronic obstructive pulmonary disease
[2022-04-28] MEDS ORDERED: ROCEPHIN 2 GM VIAL 2 GM in SODIUM CHLORIDE 100ML 100 ML IV ONE (06:33)
[2022-04-28 06:40] LABS: TROPONIN I 0.188 ng/ml (0.0000-0.120)
[2022-04-28] MEDS ORDERED: ROCEPHIN 2 GM VIAL ONE (06:57)
[2022-04-28 07:10] LABS: BILIRUBIN,URINE Negative (NEGATIVE); CLARITY,URINE Clear (CLEAR); COLOR,URINE Yellow (YELLOW); GLUCOSE, URINE (UA) Negative (NEGATIVE); KETONES,URINE Negative (NEGATIVE); LEUKOCYTE ESTERASE ,URINE Negative (NEGATIVE); NITRITE,URINE Negative (NEGATIVE); PROTEIN,URINE 1+ (NEGATIVE); URINE, BLOOD 2+ (NEGATIVE); UROBILINOGEN,URINE 0.2 (0.2)
[2022-04-28 07:18] LABS: SQUAMOUS EPITHELIAL CELL,UR NOT PRESENT (0-5); URINE RBC, MICROSCOPIC 20-30 (0-2)
[2022-04-28 07:48] LABS: SARS COV-2 RNA RAPID NAAT NEGATIVE (NEGATIVE)
[2022-04-28] MEDS ORDERED: HYTRIN PO SCH (08:00)
[2022-04-28] MEDS ORDERED: LASIX TAB PO SCH ×2 (08:30→09:00)
[2022-04-28] MEDS ORDERED: SOLU-CORTEF 100 MG IVP STA (08:50)
[2022-04-28] MEDS ORDERED: SOLU-CORTEF 250 MG IVP STA (08:56)
[2022-04-28] MEDS ORDERED: COREG PO SCH (09:00)
[2022-04-28] MEDS ORDERED: NON-FORMULARY MEDICATION (Tiotropium-Olodaterol [Stiolto Respimat] 2.5-2.5 mcg/actuation m IH SCH (09:00)
[2022-04-28] MEDS ORDERED: CATAPRES PO SCH ×2 (09:00→21:00)
[2022-04-28 09:23] LABS: ABG O2 HGB 86.3 % (95-100); BEecf 14.8 (-2.0-3.0); COHb 2.1 (0.5-1.5); HCO3 41.4 (21-28); MetHb 1.1 (0-1.5); tHb 13.9 g/dl (11.7-17.4)
[2022-04-28 09:42] LABS: ABG PH 7.29 (7.35-7.45)
[2022-04-28] MEDS ORDERED: ALBUTEROL 0.083% NEB NEB SCH (10:00)
[2022-04-28 10:56] LABS: ABG O2 HGB 93.5 % (95-100); BEecf 12.8 (-2.0-3.0); COHb 2.3 (0.5-1.5); HCO3 39.4 (21-28); MetHb 0.7 (0-1.5); TCO2 41.9 (19-24); sO2 92.9 % (94-98); tHb 14.2 g/dl (11.7-17.4)
[2022-04-28 10:59] LABS: ABG PH 7.29 (7.35-7.45)
[2022-04-28 11:34] VITALS: BMI 28.8
[2022-04-28] MEDS: ANORO ELLIPTA 62.5-25 MCG INH IH SCH (12:11)
[2022-04-28] MEDS: CATAPRES PO SCH ×3 (12:11→22:42)
[2022-04-28] MEDS: ASTELIN 0.1% NAS SCH ×2 (12:11→21:14)
[2022-04-28] MEDS: DOXY-100 100 MG in SODIUM CHLORIDE 100ML 100 ML IV SCH ×3 (12:12→21:58)
[2022-04-28] MEDS: LEXAPRO PO SCH (12:12)
[2022-04-28] MEDS: COREG PO SCH ×2 (12:12→16:43)
[2022-04-28] MEDS: LASIX IVP SCH (12:12)
[2022-04-28] MEDS: MINOXIDIL PO SCH ×2 (12:12→22:43)
[2022-04-28] MEDS: COZAAR PO SCH ×2 (12:12→22:42)
[2022-04-28] MEDS: XANAX PO SCH ×4 (12:13→22:47)
[2022-04-28] MEDS: MUCINEX PO SCH ×2 (12:13→20:40)
[2022-04-28] MEDS: PREDNISONE PO SCH (12:13)
[2022-04-28] MEDS: MIRALAX PO SCH ×2 (12:13→20:46)
[2022-04-28] MEDS: PROTONIX PO SCH (12:13)
[2022-04-28] MEDS: ZANAFLEX PO SCH ×3 (12:14→22:47)
[2022-04-28] MEDS: ALBUTEROL 0.083% NEB NEB SCH ×3 (12:17→23:30)
[2022-04-28 14:14] LABS: ABG O2 HGB 94.6 % (95-100); ABG PH 7.47 (7.35-7.45); BEecf 9.8 (-2.0-3.0); COHb 2.5 (0.5-1.5); HCO3 33.5 (21-28); MetHb 1.2 (0-1.5); TCO2 34.9 (19-24); sO2 95.8 % (94-98); tHb 13.3 g/dl (11.7-17.4)
[2022-04-28] MEDS: MAXIPIME 2 GM/50 ML D5W 2 GM/50 ML BAG IV SCH ×2 (14:45→21:15)
[2022-04-28 15:24] LABS: CREATINE KINASE 44.4 U/L (55-170)
[2022-04-28 16:15] LABS: TROPONIN I 0.564 ng/ml (0.0000-0.120)
[2022-04-28] MEDS: PULMICORT 0.5 MG/2 ML NEB SCH (17:26)
[2022-04-28] MEDS ORDERED: TYLENOL PO PRN (17:38)
[2022-04-28] MEDS: ASPIRIN EC PO SCH (20:41)
[2022-04-28] MEDS: FLOMAX PO SCH (20:41)
[2022-04-28] MEDS: HYTRIN PO SCH (21:30)
[2022-04-29] MEDS: MAXIPIME 2 GM/50 ML D5W 2 GM/50 ML BAG IV SCH ×3 (04:36→20:40)
[2022-04-29] MEDS: ALBUTEROL 0.083% NEB NEB SCH ×4 (05:50→23:12)
[2022-04-29] MEDS: PULMICORT 0.5 MG/2 ML NEB SCH ×2 (05:50→17:14)
[2022-04-29] MEDS: LASIX IVP SCH (05:51)
[2022-04-29] MEDS: PROTONIX PO SCH (05:51)
[2022-04-29 05:56] LABS: ABG O2 HGB 91.7 % (95-100); ABG PH 7.45 (7.35-7.45); BEecf 10.8 (-2.0-3.0); COHb 1.8 (0.5-1.5); HCO3 34.8 (21-28); MetHb 1.2 (0-1.5); TCO2 36.3 (19-24); tHb 18.5 g/dl (11.7-17.4)
[2022-04-29 06:22] LABS: HEMATOCRIT 35.6 % (42.0-52.0); HEMOGLOBIN 12.1 g/dl (14.0-18.0); MEAN CORPUSCULAR VOLUME 91.3 fl (80.0-94.0); PLATELET COUNT 139 10^3/uL (140-440); RDW COEFFICIENT OF VARIATION 14.2 % (11.6-14.8); WHITE BLOOD COUNT 29.41 K/ul (4.2-10.2)
[2022-04-29 06:35] LABS: ALANINE AMINOTRANSFERASE 46.2 U/L (0-50); ALBUMIN 3.4 g/dL (3.5-5.0); ALKALINE PHOSPHATASE 50.7 U/L (56-119); ASPARTATE AMINO TRANSFERASE 41.7 U/L (17-59); BILIRUBIN,TOTAL 0.66 mg/dL (0.2-1.3); BLOOD UREA NITROGEN 45.9 mg/dL (9-20); CALCIUM 8.2 mg/dL (8.4-10.2); CARBON DIOXIDE 33.3 mmol/L (22-30.0); CHLORIDE 93.9 mmol/L (98-107); CREATININE 1.41 mg/dL (0.60-1.10); GLUCOSE 98.3 mg/dL (74-106); POTASSIUM 4.42 mmol/L (3.5-5.1); SODIUM 130.8 mmol/L (134.5-145); TOTAL PROTEIN 5.96 g/dL (6.3-8.2)
[2022-04-29 06:49] LABS: ANISOCYTOSIS NOT PRESENT (NOT PRESENT)
[2022-04-29] MEDS: ASTELIN 0.1% NAS SCH ×2 (08:44→20:59)
[2022-04-29] MEDS: ANORO ELLIPTA 62.5-25 MCG INH IH SCH (08:44)
[2022-04-29] MEDS: XANAX PO SCH ×3 (08:45→20:40)
[2022-04-29] MEDS: CATAPRES PO SCH ×3 (08:45→20:47)
[2022-04-29] MEDS: ZANAFLEX PO SCH ×2 (08:45→20:41)
[2022-04-29] MEDS: MINOXIDIL PO SCH ×2 (08:46→20:40)
[2022-04-29] MEDS: COREG PO SCH ×2 (08:46→17:12)
[2022-04-29] MEDS: PREDNISONE PO SCH (08:47)
[2022-04-29] MEDS: COZAAR PO SCH (08:47)
[2022-04-29] MEDS: LEXAPRO PO SCH (08:47)
[2022-04-29] MEDS: MUCINEX PO SCH ×2 (08:48→20:48)
[2022-04-29] MEDS: MIRALAX PO SCH ×2 (08:48→20:48)
[2022-04-29] MEDS: DOXY-100 100 MG in SODIUM CHLORIDE 100ML 100 ML IV SCH ×2 (08:54→20:39)
[2022-04-29] MEDS ORDERED: ROCEPHIN 1 GM/50 ML D5W 1 GM/50 ML BAG IV SCH (09:00)
[2022-04-29] MEDS: SOLU-CORTEF 250 MG IVP SCH ×2 (13:41→20:42)
[2022-04-29 13:50] LABS: ABG O2 HGB 91.6 % (95-100); ABG PH 7.46 (7.35-7.45); BEecf 13.9 (-2.0-3.0); COHb 2.5 (0.5-1.5); HCO3 37.7 (21-28); MetHb 1.2 (0-1.5); TCO2 39.3 (19-24); sO2 94.5 % (94-98); tHb 11.8 g/dl (11.7-17.4)
[2022-04-29] MEDS: HYTRIN PO SCH (20:40)
[2022-04-29] MEDS: FLOMAX PO SCH (20:40)
[2022-04-29] MEDS: ASPIRIN EC PO SCH (20:48)
[2022-04-30] MEDS: MAXIPIME 2 GM/50 ML D5W 2 GM/50 ML BAG IV SCH ×3 (04:35→20:33)
[2022-04-30] MEDS: SOLU-CORTEF 250 MG IVP SCH ×3 (04:35→20:36)
[2022-04-30 04:50] LABS: ABG O2 HGB 93.9 % (95-100); ABG PH 7.42 (7.35-7.45); BEecf 11.2 (-2.0-3.0); COHb 1.9 (0.5-1.5); HCO3 35.7 (21-28); MetHb 1.3 (0-1.5); TCO2 37.4 (19-24); sO2 95.8 % (94-98); tHb 15.2 g/dl (11.7-17.4)
[2022-04-30] MEDS: ALBUTEROL 0.083% NEB NEB SCH ×4 (04:50→23:40)
[2022-04-30] MEDS: PULMICORT 0.5 MG/2 ML NEB SCH ×2 (04:50→16:47)
[2022-04-30 05:41] LABS: HEMATOCRIT 31.2 % (42.0-52.0); HEMOGLOBIN 10.5 g/dl (14.0-18.0); MEAN CORPUSCULAR HEMOGLOBIN 31.1 pg (27.0-31.0); MEAN CORPUSCULAR HGB CONC 33.7 (31.8-35.4); MEAN CORPUSCULAR VOLUME 92.3 fl (80.0-94.0); PLATELET COUNT 114 10^3/uL (140-440); RDW COEFFICIENT OF VARIATION 14.4 % (11.6-14.8); RED BLOOD COUNT 3.38 10^6/ul (4.70-6.10); WHITE BLOOD COUNT 21.29 K/ul (4.2-10.2)
[2022-04-30 05:50] LABS: ANISOCYTOSIS NOT PRESENT (NOT PRESENT)
[2022-04-30 05:52] LABS: ALBUMIN 2.99 g/dL (3.5-5.0); ALKALINE PHOSPHATASE 52.1 U/L (56-119); ASPARTATE AMINO TRANSFERASE 39.8 U/L (17-59); BILIRUBIN,TOTAL 0.43 mg/dL (0.2-1.3); BLOOD UREA NITROGEN 55.2 mg/dL (9-20); CALCIUM 7.94 mg/dL (8.4-10.2); CARBON DIOXIDE 32.2 mmol/L (22-30.0); CHLORIDE 94.3 mmol/L (98-107); CREATININE 1.65 mg/dL (0.60-1.10); GLUCOSE 135.5 mg/dL (74-106); POTASSIUM 4.18 mmol/L (3.5-5.1); SODIUM 130.8 mmol/L (134.5-145); TOTAL PROTEIN 5.42 g/dL (6.3-8.2)
[2022-04-30] MEDS: PROTONIX PO SCH (05:58)
[2022-04-30] MEDS: LASIX IVP SCH (05:58)
--- NOTE | 2022-04-30 08:56 | PCM.PROG ---
Attending Provider: ATTENDING PROVIDER: Dr. HAILEY SCHULTE MD This patient is seen with Debbie Garcia, Nurse Practitioner. DATE OF SERVICE: 04/30/22 SUBJECTIVE: This 81 year old /WHITE M was hospitalized 04/28/22. The patient is not alert. He is on BIPAP. Repeat ABGs this morning have improved. p02 up to 79. The patient has been confused through the night. REVIEW OF SYSTEMS: CONSTITUTIONAL: Weakness, fatigue, lethargy. No night sweats. No malaise. No fever or chills. HEENT: Eyes: No visual changes. No eye pain. No eye discharge. ENT: No runny nose. No epistaxis. No sinus pain. No odynophagia. No congestion. RESPIRATORY: No cough, no congestion. No hemoptysis. Shortness of breath. CARDIOVASCULAR: No angina symptoms. No CHF symptoms. No atypical chest pain for CAD. No palpitations. No orthopnea.. GASTROINTESTINAL: No abdominal pain. No nausea or vomiting. No diarrhea or constipation. No hematemesis. No hematochezia. GENITOURINARY: No urgency. No frequency. No dysuria. No hematuria. No obstructive symptoms. No discharge. No pain. No significant abnormal bleeding. MUSCULOSKELETAL: No musculoskeletal pain; no joint swelling. NEUROLOGICAL: Confusion. No headache. No neck pain. No syncope. No seizures. No dizziness. PSYCHIATRIC: Not anxious. No depression. No suicidal thoughts. No homicidal thoughts. SKIN: No rash. No lesions. No wounds. ENDOCRINE: No unexplained weight loss. No weight gain. HEMATOLOGIC/LYMPHATIC: No anemia. No purpura. No petechiae. No prolonged or excessive bleeding. No palpable lymph nodes. PHYSICAL EXAMINATION: GENERAL: The patient is confused, lying/sitting in bed in no distress. VITAL SIGNS: Temperature 98.2 F, Pulse 87, Respiratory Rate 18, BP 144/32, Pulse Ox 96% HEENT: Head normocephalic, atraumatic. Eyes: Extraocular muscles are intact. Pupils are equal, round and reactive to light and accommodation. Ears: No lesions. Nose appeared normal. Throat: No exudate or erythema. NECK: Supple. No JVD, no carotid bruit. No lymphadenopathy or thyromegaly. LUNGS: Severely diminished breath sounds. Clear to auscultation. Percussion note normal. Chest symmetrical. HEART: S1, S2, no S3. No murmurs. No cyanosis or clubbing. No ascites. Pulses: Dorsalis pedis and posterior tibial pulses +1 to +2 both sides. ABDOMEN: Soft. Non-tender. Bowel sounds active. No CVA tenderness. No mass felt. EXTREMITIES: No edema. Full range of motion of all extremities, equal. NEUROLOGIC: No focal deficit. Cranial nerves II through XII are grossly intact. No headache. No double vision. SKIN: Not dry. Intact. Turgor-normal. LYMPHATIC: No palpable lymph nodes/no lymphedema. MUSCULOSKELETAL: Normal joints with no swelling. Muscle tone is normal. LAB REVIEW: 04/30/22 05:29 04/30/22 05:29 04/30/22 05:29: Sodium 130.8 L, Potassium 4.18, Chloride 94.3 L, Carbon Dioxide 32.2 H, Anion Gap 8.48, BUN 55.2 H, Creatinine 1.65 H, Estimated GFR (MDRD) 40.00, BUN/Creatinine Ratio 33.45, Glucose 135.5 H, Calcium 7.94 L, Total Bilirubin 0.43, AST 39.8, ALT 37.0, Alkaline Phosphatase 52.1 L, Total Protein 5.42 L, Albumin 2.99 L, Globulin 2.43, Albumin/Globulin Ratio 1.23 04/30/22 05:29: WBC 21.29 H D, RBC 3.38 L, Hgb 10.5 L, Hct 31.2 L, MCV 92.3, MCH 31.1 H, MCHC 33.7, RDW Coeff of Bhaskar 14.4, Plt Count 114 L, Neutrophils % (Manual) 94.0 H, Lymphocytes % (Manual) 2.0 L, Monocytes % (Manual) 4.0, Anisocytosis Not present 04/30/22 04:45: Puncture Site Rrad, Base Excess 11.2 H, O2 Saturation 95.8, ABG pH 7.42, ABG pCO2 55.0 H, ABG pO2 79.0 L, ABG HCO3 35.7 H, ABG Total CO2 37.4 H, Albino Test +, Hemoglobin 1.3, Oxyhemoglobin 93.9 L, Carboxyhemoglobin 1.9 H, Total Hemoglobin 15.2, O2 Delivery Device Bipap, FiO2 % 75.0 04/29/22 13:45: Puncture Site Lrad, Base Excess 13.9 H, O2 Saturation 94.5, ABG pH 7.46 H, ABG pCO2 53.0 H, ABG pO2 69.0 L, ABG HCO3 37.7 H, ABG Total CO2 39.3 H, Albino Test Pos, Hemoglobin 1.2, Oxyhemoglobin 91.6 L, Carboxyhemoglobin 2.5 H , Total Hemoglobin 11.8, O2 Delivery Device Bipap, FiO2 % 75.0 ASSESSMENT: Please see below. 1. Acute respiratory failure. 2. Right lobar pneumonia. 3. End-stage COPD. 4. Hypertension. 5. Renal azotemia. PLAN: 1. Continue BIPAP 2. CT of chest with and without. 3. Hold IV Lasix. Plan and coordination of the patient's care discussed in the presence of Chair Lift Operator and nurse. CONDITION: GUARDED/CRITICAL TIME SPENT: 35 MINUTES SCRIBED BY: BEAR HOLLEY Superintendent [employer] scribed while in presence of service performed by Debbie Garcia APRN on 04/30/22 ([id number])
[2022-04-30] MEDS: COREG PO SCH ×2 (09:46→17:53)
[2022-04-30] MEDS: CATAPRES PO SCH ×4 (09:46→20:32)
[2022-04-30] MEDS: LEXAPRO PO SCH (09:46)
[2022-04-30] MEDS: ANORO ELLIPTA 62.5-25 MCG INH IH SCH (09:46)
[2022-04-30] MEDS: ASTELIN 0.1% NAS SCH ×2 (09:46→22:55)
[2022-04-30] MEDS: MIRALAX PO SCH ×2 (09:47→22:54)
[2022-04-30] MEDS: MINOXIDIL PO SCH ×2 (09:47→23:00)
[2022-04-30] MEDS: MUCINEX PO SCH ×2 (09:47→22:53)
[2022-04-30] MEDS: XANAX PO SCH ×3 (09:48→20:31)
[2022-04-30] MEDS: ZANAFLEX PO SCH ×2 (09:48→20:32)
[2022-04-30] MEDS: DOXY-100 100 MG in SODIUM CHLORIDE 100ML 100 ML IV SCH ×2 (09:50→21:51)
[2022-04-30] MEDS: LOVENOX SUBCUT SCH (11:03)
--- NOTE | 2022-04-30 11:27 | CT ---
EXAM: CT CHEST WITHOUT AND WITH CONTRAST HISTORY: Pneumonia, shortness of breath, and edema COMPARISON: CT chest from 09/14/2021 TECHNIQUE: Multi-slice pre and postcontrast transaxial helical images are acquired through the thora x with coronal and sagittal reconstructed images. All CT scans are performed using dose optimization techniques as appropriate to the performed exam and includes at least one of the following: Automat ed exposure control, adjustment of the mA and/or kV according to size, and the use of iterative recon struction technique. CONTRAST: 75 ml Visipaque 320 IV FINDINGS: A subcarinal lymph node is enlarged to 2.3 cm in short axis. This is new when compared to the prior. A right hilar lymph node is 1.1 cm in short axis and is also new. An AP window lymph no de is 1.9 cm in short axis and is also. Calcified mediastinal and bilateral hilar lymph nodes are un changed. A left hilar lymph node is now enlarged to 1.3 cm in short axis. A small right pleural eff usion layers dependently. No left pleural fluid or significant pericardial fluid. The heart is mild ly enlarged with tri-vessel coronary artery calcifications. The aorta is atherosclerotic. The lungs are emphysematous. There are consolidating infiltrates in the right upper lobe, middle lobe, right lower lobe, and left lower lobe. A calcified granuloma is unchanged in the left upper lobe. The solid organs are grossly normal in their visualized portions of the upper abdomen. No suspicious bone lesions. IMPRESSION: Multifocal pneumonia. Recommend follow-up resolution. Emphysema. New mediastinal and bilateral hilar lymphadenopathy may be reactive but should be followed. Mild cardiomegaly and tri-vessel coronary artery disease. Small right pleural effusion. . All CT scans are performed using dose optimization techniques as appropriate to the performed exam an d include at least one of the following: Automated exposure control, adjustment of the mA and/or kV according t o size, and the use of iterative reconstruction technique.
--- NOTE | 2022-04-30 13:00 | PN ---
DATE OF SERVICE: 04/28/22 - ADMIT NOTE SUBJECTIVE: The patient was seen and examined on the floor after he was hospitalized. He was also seen in the emergency room. The patient was admitted with respiratory distress. The patient had fluid retention and COPD exacerbation. Condition seems to have deteriorated in the past 24 hours. The patient was given IV Lasix in the Emergency Department, steroids, nebs treatment. Arterial blood gases last done BIPAP 60% improved remarkably. His condition seems to be stabilizing. The patient is DNI - Do Not Intubate. PLAN: 1. Treatment would be to treat fluid retention. 2. Steroids. 3. Nebs treatment. 4. BIPAP 5. Take care of c02 retention. 6. The patient had hypotension from BIPAP. 7. Will elevate the legs. 8. At the present time, the patient is not able to take any medications by mouth. He doesn't need to be on antihypertensive anyway. CONDITION: CRITICAL PROGNOSIS: POOR TIME SPENT: 55 minutes Plan and coordination of the patient's care discussed in the presence of nurseLobito TAVERAS
--- NOTE | 2022-04-30 13:27 | PN ---
DATE OF SERVICE: 04/29/22 SUBJECTIVE: 81-year-old white male hospitalized with pneumonia. The patient had volume overload with mostly tissue swelling from sedentary lifestyle and of course using BIPAP and steroids. The patient's condition overall has improved. REVIEW OF SYSTEMS: CONSTITUTIONAL: No night sweats. No fatigue, malaise, lethargy. No fever or chills. HEENT: Eyes: No visual changes. No eye pain. No eye discharge. ENT: No runny nose. No epistaxis. No sinus pain. No sore throat. No odynophagia. No congestion. RESPIRATORY: Cough with congestion. No hemoptysis. Shortness of breath on minimal exertion. CARDIOVASCULAR: No angina symptoms. No CHF symptoms. No atypical chest pain for CAD. No palpitations. No PND. No orthopnea. GASTROINTESTINAL: Appetite has improved some. He wants to eat. No abdominal pain. No nausea or vomiting. No diarrhea or constipation. No hematemesis. No hematochezia. GENITOURINARY: No urgency. No frequency. No dysuria. No hematuria. No obstructive symptoms. No discharge. No pain. No significant abnormal bleeding. MUSCULOSKELETAL: No musculoskeletal pain; no joint swelling. NEUROLOGICAL: No headache. No neck pain. No syncope. No seizures. No dizziness. PSYCHIATRIC: Not anxious. No depression. No suicidal thoughts. No homicidal thoughts. SKIN: No rash. No lesions. No wounds. ENDOCRINE: No unexplained weight loss. No weight gain. HEMATOLOGIC/LYMPHATIC: No anemia. No purpura. No petechiae. No prolonged or excessive bleeding. No palpable lymph nodes. PHYSICAL EXAMINATION: VITAL SIGNS: Temperature 96.6, pulse 88, respiratory rate 18, BP 160/82, pulse ox 95% on BIPAP 60%, 50%. HEENT: Face is swollen less than before. Head normocephalic, atraumatic. Eyes: Extraocular muscles are intact. Pupils are equal, round and reactive to light and accommodation. Ears: No lesions. Nose appeared normal. Throat: No exudate or erythema. NECK: Supple. No JVP, no carotid bruit. No lymphadenopathy or thyromegaly. LUNGS: Chest: Increased AP diameter of the chest. Decreased breath sounds bilaterally with mild expiratory wheeze. HEART: S1, S2 distant. No S3. No murmurs. No cyanosis or clubbing. No ascites. Pulses: Dorsalis pedis and posterior tibial pulses +1 to +2 bilaterally. ABDOMEN: Soft. Nontender. Bowel sounds active. No CVA tenderness. No mass felt. EXTREMITIES: Trace to 1+ pitting edema. The patient's daughter is present in the room. Full range of motion of all extremities, equal. NEUROLOGIC: No focal deficit. Cranial nerves II through XII are grossly intact. No headache. No double vision. SKIN: Not dry. Intact. Turgor - normal. LYMPHATIC: No palpable lymph nodes/no lymphedema. MUSCULOSKELETAL: Normal joints with no swelling. Muscle tone is normal. LABS: ABGs 72, pc02 50, pH 7.45 with 95% saturation. Saturation on 50% BIPAP, troponin positive. CK-MB negative. EKG - LVH, P pulmonale, no acute changes. ASSESSMENT: 1. ACUTE RESPIRATORY FAILURE 2. BILATERAL PNEUMONIA 3. SEVERE CHRONIC LUNG DISEASE END STAGE 4. CORONARY ARTERY DISEASE 5. MILD GENERALIZED FLUID RETENTION, MULTIPLE FACTORS PLAN: 1. Continue IV Lasix 2. Elevate the legs 3. Hypotension has resolved which was present yesterday 4. The patient's arterial blood gases showed a lot of improvement from yesterday. 5. Condition has improved. He is upright, trying to speak sentences, able to talk. Appetite has improved. 6. Will add Solu-Cortef 125 q.8. 7. Will continue to do CBC, CMP, telemetry. 8. The patient is DNR. 9. has gone up likely from cardiovascular volume contraction. Lasix was used for tissue edema. 10. Marcano catheter. TIME SPENT: Extensive - 50 min Plan and coordination of the patient's care discussed in the presence of nurse. NITIN
[2022-04-30 17:20] LABS: BEecf 11.5 (-2.0-3.0); HCO3 38.6 (21-28); MetHb 0.6 (0-1.5); TCO2 41.2 (19-24); sO2 93.6 % (94-98); tHb 11.9 g/dl (11.7-17.4)
[2022-04-30 17:23] LABS: ABG PH 7.26 (7.35-7.45)
[2022-04-30] MEDS: FLOMAX PO SCH (22:52)
[2022-04-30] MEDS: ASPIRIN EC PO SCH (22:53)
[2022-04-30] MEDS: HYTRIN PO SCH (22:54)
[2022-05-01] MEDS: SOLU-CORTEF 250 MG IVP SCH ×3 (04:14→19:08)
[2022-05-01] MEDS: MAXIPIME 2 GM/50 ML D5W 2 GM/50 ML BAG IV SCH ×3 (04:15→22:05)
[2022-05-01] MEDS: ALBUTEROL 0.083% NEB NEB SCH ×4 (04:50→23:50)
[2022-05-01] MEDS: PULMICORT 0.5 MG/2 ML NEB SCH ×2 (04:50→17:45)
[2022-05-01] MEDS: PROTONIX PO SCH (05:37)
[2022-05-01 07:03] LABS: HEMATOCRIT 31.6 % (42.0-52.0); HEMOGLOBIN 10.3 g/dl (14.0-18.0); IMMATURE GRANULOCYTE # (AUTO) 0.1 (0.0-1.0); IMMATURE GRANULOCYTE % (AUTO) 0.5 % (0.0-5.0); LYMPHOCYTES # (AUTO) 0.5 K/uL (0.60-3.4); LYMPHOCYTES % (AUTO) 3.7 (10.0-50.0); MEAN CORPUSCULAR HEMOGLOBIN 30.4 pg (27.0-31.0); MEAN CORPUSCULAR HGB CONC 32.6 (31.8-35.4); MEAN CORPUSCULAR VOLUME 93.2 fl (80.0-94.0); MONOCYTES # (AUTO) 0.5 K/uL (0.4-2.0); MONOCYTES % (AUTO) 3.6 (0-10); NEUTROPHILS # (AUTO) 11.6 K/ul (2.0-6.9); NEUTROPHILS % (AUTO) 92.2 % (42.2-75.2); PLATELET COUNT 101 10^3/uL (140-440); RDW COEFFICIENT OF VARIATION 14.6 % (11.6-14.8); RED BLOOD COUNT 3.39 10^6/ul (4.70-6.10); WHITE BLOOD COUNT 12.59 K/ul (4.2-10.2)
[2022-05-01 07:16] LABS: ALANINE AMINOTRANSFERASE 36.1 U/L (0-50); ALBUMIN 3.21 g/dL (3.5-5.0); ALKALINE PHOSPHATASE 51.7 U/L (56-119); ASPARTATE AMINO TRANSFERASE 45.7 U/L (17-59); BILIRUBIN,TOTAL 0.5 mg/dL (0.2-1.3); CALCIUM 8.19 mg/dL (8.4-10.2); CARBON DIOXIDE 33.5 mmol/L (22-30.0); CHLORIDE 94.2 mmol/L (98-107); CREATININE 2.25 mg/dL (0.60-1.10); GLUCOSE 130.3 mg/dL (74-106); POTASSIUM 4.28 mmol/L (3.5-5.1); SODIUM 133.8 mmol/L (134.5-145); TOTAL PROTEIN 5.88 g/dL (6.3-8.2)
[2022-05-01 07:47] LABS: ABG PH 7.44 (7.35-7.45)
[2022-05-01 07:48] LABS: MetHb 0.8 (0-1.5)
[2022-05-01 07:49] LABS: BLOOD UREA NITROGEN 71.9 mg/dL (9-20)
[2022-05-01 07:51] LABS: ABG O2 HGB 91.3 % (95-100); BEecf 11.1 (-2.0-3.0); COHb 1.9 (0.5-1.5); HCO3 35.3 (21-28); TCO2 36.9 (19-24); sO2 91.2 % (94-98)
[2022-05-01] MEDS: ASTELIN 0.1% NAS SCH ×2 (09:35→22:31)
[2022-05-01] MEDS: ANORO ELLIPTA 62.5-25 MCG INH IH SCH (09:35)
[2022-05-01] MEDS: CATAPRES PO SCH ×3 (09:35→22:22)
[2022-05-01] MEDS: LEXAPRO PO SCH (09:38)
[2022-05-01] MEDS: COREG PO SCH ×2 (09:38→18:06)
[2022-05-01] MEDS: MINOXIDIL PO SCH ×2 (09:38→22:23)
[2022-05-01] MEDS: MIRALAX PO SCH ×2 (09:39→22:26)
[2022-05-01] MEDS: XANAX PO SCH ×3 (09:39→22:23)
[2022-05-01] MEDS: MUCINEX PO SCH ×2 (09:39→22:24)
[2022-05-01] MEDS: ZANAFLEX PO SCH ×2 (09:39→22:22)
[2022-05-01] MEDS: DOXY-100 100 MG in SODIUM CHLORIDE 100ML 100 ML IV SCH ×2 (09:44→20:19)
[2022-05-01] MEDS: LOVENOX SUBCUT SCH (09:44)
[2022-05-01] MEDS: SODIUM CHLORIDE 1,000 ML IV SCH (09:46)
--- NOTE | 2022-05-01 10:04 | PCM.PROG ---
Attending Provider: ATTENDING PROVIDER: Dr. HAILEY SCHULTE MD This patient is seen with Debbie Garcia, Nurse Practitioner. DATE OF SERVICE: 05/01/22 SUBJECTIVE: This 81 year old /WHITE M was hospitalized 04/28/22. The patient did not tolerate Vapotherm yesterday increasing c02. ABG is good this morning on BIPAP. The patient decided he is a full DNR yesterday. The patient drank a protein shake yesterday, BUN elevated. REVIEW OF SYSTEMS: CONSTITUTIONAL: Lethargy. Weakness. No night sweats. No fatigue, malaise. No fever or chills. HEENT: Eyes: No visual changes. No eye pain. No eye discharge. ENT: No runny nose. No epistaxis. No sinus pain. No odynophagia. No congestion. RESPIRATORY: No cough, no congestion. No hemoptysis. Respiratory failure. CARDIOVASCULAR: No angina symptoms. No CHF symptoms. No atypical chest pain for CAD. No palpitations. No orthopnea.. GASTROINTESTINAL: No abdominal pain. No nausea or vomiting. No diarrhea or constipation. No hematemesis. No hematochezia. GENITOURINARY: No urgency. No frequency. No dysuria. No hematuria. No obstru ctive symptoms. No discharge. No pain. No significant abnormal bleeding. MUSCULOSKELETAL: No musculoskeletal pain; no joint swelling. NEUROLOGICAL: Awake, alert, oriented to time, place and person. No headache. No neck pain. No syncope. No seizures. No dizziness. PSYCHIATRIC: Not anxious. No depression. No suicidal thoughts. No homicidal thoughts. SKIN: No rash. No lesions. No wounds. ENDOCRINE: No unexplained weight loss. No weight gain. HEMATOLOGIC/LYMPHATIC: No anemia. No purpura. No petechiae. No prolonged or excessive bleeding. No palpable lymph nodes. PHYSICAL EXAMINATION: GENERAL: The patient is awake, alert and oriented, lying/sitting in bed in no distress. VITAL SIGNS: Temperature 97.1 F, Pulse 84, Respiratory Rate 20, BP 166/80, Pulse Ox 96% HEENT: Head normocephalic, atraumatic. Eyes: Extraocular muscles are intact. Pupils are equal, round and reactive to light and accommodation. Ears: No lesions. Nose appeared normal. Throat: No exudate or erythema. NECK: Supple. No JVD, no carotid bruit. No lymphadenopathy or thyromegaly. LUNGS: Severely diminished breath sounds. Clear to auscultation. Percussion note normal. Chest symmetrical. HEART: S1, S2, no S3. No murmurs. No cyanosis or clubbing. No ascites. Pulses: Dorsalis pedis and posterior tibial pulses +1 to +2 both sides. ABDOMEN: Soft. Non-tender. Bowel sounds active. No CVA tenderness. No mass felt. EXTREMITIES: No edema. Full range of motion of all extremities, equal. NEUROLOGIC: No focal deficit. Cranial nerves II through XII are grossly intact. No headache. No double vision. SKIN: Not dry. Intact. Turgor-normal. LYMPHATIC: No palpable lymph nodes/no lymphedema. MUSCULOSKELETAL: Normal joints with no swelling. Muscle tone is normal. LAB REVIEW: 05/01/22 06:58 05/01/22 06:58 05/01/22 06:58: Sodium 133.8 L, Potassium 4.28, Chloride 94.2 L, Carbon Dioxide 33.5 H, Anion Gap 10.38, BUN 71.9 H*, Creatinine 2.25 H D, Estimated GFR (MDRD) 28.00, BUN/Creatinine Ratio 31.95, Glucose 130.3 H, Calcium 8.19 L, Total Bilirubin 0.50, AST 45.7, ALT 36.1, Alkaline Phosphatase 51.7 L, Total Protein 5.88 L, Albumin 3.21 L, Globulin 2.67, Albumin/Globulin Ratio 1.20 05/01/22 06:58: WBC 12.59 H D, RBC 3.39 L, Hgb 10.3 L, Hct 31.6 L, MCV 93.2, MCH 30.4, MCHC 32.6, RDW Coeff of Bhaskar 14.6, Plt Count 101 L, Immature Gran % (Auto) 0.5, Neut % (Auto) 92.2 H, Lymph % (Auto) 3.7 L, Starr % (Auto) 3.6, Eos % (Auto) 0.0, Baso % (Auto) 0.0, Neut # (Auto) 11.6 H, Lymph # (Auto) 0.5 L, Starr # (Auto) 0.5, Eos # (Auto) 0.0, Baso # (Auto) 0.0, Immature Gran # (Auto) 0.1 05/01/22 06:05: Puncture Site Lrad, Base Excess 11.1 H, O2 Saturation 91.2 L, ABG pH 7.44, ABG pCO2 52.0 H, ABG pO2 59.0 L*, ABG HCO3 35.3 H, ABG Total CO2 36.9 H, Albino Test Pos, Hemoglobin 0.8, Oxyhemoglobin 91.3 L, Carboxyhemoglobin 1.9 H, Total Hemoglobin 11.0 L, O2 Delivery Device Bipap, FiO2 % 60.0 04/30/22 17:15: Puncture Site Rrad, Base Excess 11.5 H, O2 Saturation 93.6 L, ABG pH 7.26 L*, ABG pCO2 86.0 H, ABG pO2 79.0 L, ABG HCO3 38.6 H, ABG Total CO2 41.2 H, Albino Test Pos, Hemoglobin 0.6, Oxyhemoglobin 94.0 L, Carboxyhemoglobin 2.0 H, Total Hemoglobin 11.9, O2 Delivery Device Vapotherm, FiO2 % 100.0 ASSESSMENT: Please see below. 1. Acute respiratory failure 2. Bilateral multifocal pneumonia 3. Renal azotemia 4. End-stage COPD PLAN: 1. Start IV NS 60 mL/hr 2. Steroids q.6hr instead of q.8hr 3. Continue to hold Lasix Plan and coordination of the patient's care discussed in the presence of Body Engineer and nurse. CONDITION: CRITICAL TIME SPENT: 35 MINUTES SCRIBED BY: BEAR HOLLEY [facility] Registered Nurse scribed while in presence of service performed by Debbie Garcia APRN on 05/01/22 ([id number])
--- NOTE | 2022-05-01 13:53 | HP ---
DATE OF SERVICE: 04/28/22 REASON FOR HOSPITALIZATION: Shortness of breath, pneumonia, tissue edema. HISTORY OF PRESENT ILLNESS: This is an 81-year-old white male was seen in the emergency room by ER attending and was noted to have tissue swelling with possibility of volume overload. Also had pneumonia and increasing shortness of breath. His FI02 100% on 50L of oxygen, nonbreather. Saturation was 99% with p02 of 128, pc02 of 58 with pH of 7.38. The patient was in respiratory distress at home. His oxygen saturation was nearly 5%. PAST MEDICAL/SURGICAL HISTORY: Severe chronic lung disease, end-stage Dependent edema Chronic kidney disease, Stage 3 Hypertension Chronic respiratory failure on home oxygen Coronary artery disease with stent Right sciatica Obstructive sleep apnea Dyslipidemia Hypertension Secondary polycythemia Status post cholecystectomy. Lung problems are followed by pulmonary physician. REVIEW OF SYSTEMS: CONSTITUTIONAL: Weakness and fatigue. No night sweats. No malaise, lethargy. No fever or chills. HEENT: Eyes: No visual changes. No eye pain. No eye discharge. ENT: No runny nose. No epistaxis. No sinus pain. No sore throat. No odynophagia. No ear pain. No congestion. RESPIRATORY: No cough, no congestion. No hemoptysis. Shortness of breath. CARDIOVASCULAR: Shortness of breath. No angina symptoms. No CHF symptoms. No atypical chest pain for CAD. No palpitations. No PND. No orthopnea. GASTROINTESTINAL: Poor appetite. No abdominal pain. No nausea or vomiting. No diarrhea or constipation. No hematemesis. No hematochezia. GENITOURINARY: No urgency. No frequency. No dysuria. No hematuria. No obstructive symptoms. No discharge. No pain. No significant abnormal bleeding. MUSCULOSKELETAL: Weakness, inability to walk. No musculoskeletal pain. No joint swelling. NEUROLOGICAL: No headache. No neck pain. No syncope. No seizures. No dizziness. PSYCHIATRIC: Not anxious. No depression. No suicidal thoughts. No homicidal thoughts. SKIN: No rash. No lesions. No wounds. ENDOCRINE: No unexplained weight loss. No weight gain. HEMATOLOGIC/LYMPHATIC: No anemia. No purpura. No petechiae. No prolonged or excessive bleeding. No palpable lymph nodes. PERSONAL/FAMILY/SOCIAL HISTORY: The patient is nonsmoker, no alcohol abuse. He is a , lives by himself with a daughter's help. He does all activities of daily living. MEDICATIONS: Aspirin 81 mg p.o. bedtime Tamsulosin 0.8 mg p.o. bedtime Albuterol wo puff q.4-6hr p.r.n. shortness of air Albuterol nebulization- one vial neb q.i.d. Budesonide 0.5 mg/2 mL, 0.5 mg INH b.i.d.\ Guaifenesin 1200 mg p.o. b.i.d. Clonidine 0.2 mg p.o. 1400 Losartan 50 mg p.o. b.i.d. Systane one drop both eyes 5 xday p.r.n. dry eyes Minoxidil 5 mg p.o. b.i.d. Stiolto two puff INH daily Miralax 17 gm p.o. b.i.d. Protonix 40 mg p.o. daily Clonidine 0.1 mg p.o. bedtime Lasix 40 mg p.o. daily Escitalopram 10 mg p.o. daily Azelastine 137 mcg two spray intranasal b.i.d. Tizanidine 4 mg p.o. b.i.d. Prednisone 10 mg p.o. daily Clonidine 0.1 mg p.o. daily Terazosin 5 mg capsule Alprazolam 0.5 mg p.o. t.i.d. Carvedilol 12.5 mg p.o. b.i.d. ALLERGIES: LEVOFLOXACIN, IPRATROPIUM PHYSICAL EXAMINATION: VITAL SIGNS: Temperature 98, pulse 90, respiratory rate 22, blood pressure 130/70. HEENT: Face is swollen. Head normocephalic, atraumatic. Eyes: Extraocular muscles are intact. Pupils are equal, round and reactive to light and accommodation. Ears: No lesions. Nose appeared normal. Throat: No exudate or erythema. NECK: Supple. No JVD, no carotid bruit. No lymphadenopathy or thyromegaly. LUNGS: Markedly decreased breath sounds bilaterally with mild expiratory wheeze. Percussion note normal. Chest AP diameter is increased. HEART: S1, S2 distant. No S3. No murmur appreciated. No cyanosis or clubbing. No ascites. Pulses: Dorsalis pedis and posterior tibial pulses +1 bilaterally. ABDOMEN: No ascites. Soft. Nontender. Bowel sounds active. No CVA tenderness. No mass felt. EXTREMITIES: Trace to 1+ edema. Full range of motion of all extremities, equal. NEUROLOGIC: Mental status: Oriented to time, place and person. No focal deficit. Cranial nerves II through XII are grossly intact. No headache, no double vision or headache. SKIN: Not dry. Intact. Turgor - normal. LYMPHATIC: No palpable lymph nodes/no lymphedema. MUSCULOSKELETAL: Normal joints with no swelling. Muscle tone is normal. LABS: Hemoglobin 13.3, hematocrit 39, WBC 16,000, normal differential. Creatinine 1, BUN 28, potassium 4.6. ASSESSMENT: 1. Bilateral pneumonia 2. Respiratory failure, acute on chronic 3. Tissue swelling with possibility of fluid overload 4. History of chronic respiratory failure on home oxygen 5. Obstructive sleep apnea on BIPAP 6. Coronary artery disease with stent 15 years ago 7. Chronic kidney disease Stage 3 8. Dyslipidemia 9. Hypertension 10. Generalized anxiety disorder 11. Hyperglycemia 12. Secondary polycythemia 13. Benign prostatic hypertrophy 14. Status post cholecystectomy PLAN: 1. Cefepime ( Maxipime) 2 gm q.8 2. Nebulizer with Albuterol q.i.d. p.r.n. 3. Nebulizer Pulmicort b.i.d. p.r.n 4. Continue Carvedilol. 5. Lexapro. 6. Lasix 80 mg IV given in the emergency room. 7. Doxycycline 100 b.i.d. 8. Protonix 40 mg q.a.m. 9. Continue Tamsulosin and Minoxidil. ADDENDUM: The patient, on the floor, was noted to have hypotension. The patient was unable to take any oral medications so advised to hold all the oral medication. The patient will be continued on IV antibiotics, two of them along with Solu-Cortef 125 mg IV given in the emergency room. Will continue every 8 hours. Nebs treatment. The patient is DNR. PROGNOSIS: GUARDED. TIME SPENT: More than 75 minutes/Level 5. MTDD
--- NOTE | 2022-05-01 14:02 | PN ---
DATE OF SERVICE: 04/30/22 SUBJECTIVE: The patient was seen and examined with the nurse practitioner. His condition seems to have stabilized with some improvement. Blood gases are showing some improvement. Continue BIPAP. Later on in the afternoon, the patient was tired of having BIPAP so he requested cannula. The patient was put on high flow oxygen Vapotherm almost 100%, saturation 93%. The patient looked somewhat sleepy so arterial blood gases were done on Vapotherm which showed pH 7.26 with pc02 of more than 80. He was taken off Vapotherm after he finished his evening meal and BIPAP again. The patient was communicated, he was oriented to time, place and person. Respiratory Therapist, Marion, was present in the room. The patient at that time was explained about his DNI and was explained that in case of cardiopulmonary arrest he will undergo CPR with chest compression. He declined to have any chest compression or any further resuscitative effort so the patient was made DNR and conveyed to the nursing staff. TIME SPENT: 50 minutes/Extensive. Plan and coordination of the patient's care discussed in the presence of nurse. NITIN
--- NOTE | 2022-05-01 14:59 | ECHO2D ---
Date of Exam: 04/30/2022 Ordering Physician: DR. SCHULTE Room #: 105 Reason for Echo: VOLUME OVERLOAD, COPD, SHORTNESS OF AIR, EDEMA M-Mode Normal Adult Results LV Dimensions Normal Adult Results AoV Opening excursions >1.6 >1.6 LVEDD-base- 3.5-5.8 4.3 Ao root dimensions 2.0-3.7 3.4 LVESD-base- 3.1-4.6 L. Atrium dimensions 1.9-3.8 4.0 Post. Wall thickness 0.8-1.1 1.3 IV septum (thickness) 0.7-1.2 1.5 Post. Wall excursion 0.72-1.3 NORMAL Septal motion NORMAL Systolic motion R. Ventricular cavity 1.5-2.0 4.0 LVEF 60% 72% Paradoxical septal wall motion NORMAL 2-D : ENLARGED RIGHT VENTRICLE CAVITY AND LEFT ATRIAL CAVITY - OTHERWISE NORMAL. 2-D M Mode Echocardiogram was performed using apical four chamber and left parasternal long and short axis views. Mitral, tricuspid and aortic valves appear to be normal. Contractility of the left ventricle seems to be normal, so is the cavity size. Left atrial cavity size is mildly enlarged. Right ventricle cavity is enlarged.. Aortic root appears to be normal. There is no pericardial effusion. There is no thrombus noted in the left ventricle or left atrial cavity. M-MODE: MV: NORMAL AV: NORMAL TV: NORMAL PV: CHAMBER SIZE: ENLARGED RIGHT VENTRICLE AND LEFT ATRIAL CAVITIES WALL MOTION: NORMAL PERICARDIUM: NORMAL INTERPRETATION: 1. LEFT VENTRICULAR HYPERTROPHY WITH MILD LEFT ATRIAL CAVITY ENLARGEMENT 2. ENLARGED RIGHT VENTRICLE CAVITY 3. NORMAL VALVES 4. NORMAL LEFT VENTRICULAR CONTRACTILITY AND LEFT VENTRICLE SIZE MTDD
[2022-05-01] MEDS ORDERED: MORPHINE 2 MG/ML SYRINGE ONE (17:28)
[2022-05-01] MEDS: MORPHINE 2 MG/ML SYRINGE IVP PRN ×3 (17:30→22:04)
[2022-05-01] MEDS: HYTRIN PO SCH (22:23)
[2022-05-01] MEDS: FLOMAX PO SCH (22:23)
[2022-05-01] MEDS: ASPIRIN EC PO SCH (22:24)
[2022-05-02] MEDS: SOLU-CORTEF 250 MG IVP SCH ×4 (00:41→18:13)
[2022-05-02] MEDS: ALBUTEROL 0.083% NEB NEB SCH ×4 (04:40→22:54)
[2022-05-02] MEDS: PULMICORT 0.5 MG/2 ML NEB SCH ×2 (04:45→17:24)
[2022-05-02] MEDS: MAXIPIME 2 GM/50 ML D5W 2 GM/50 ML BAG IV SCH (05:06)
[2022-05-02] MEDS: MORPHINE 2 MG/ML SYRINGE IVP PRN ×5 (05:32→23:35)
[2022-05-02] MEDS: SODIUM CHLORIDE 1,000 ML IV SCH ×2 (05:32→21:36)
[2022-05-02 05:36] LABS: HEMOGLOBIN 10.4 g/dl (14.0-18.0); MEAN CORPUSCULAR HEMOGLOBIN 30.8 pg (27.0-31.0); MEAN CORPUSCULAR HGB CONC 32.5 (31.8-35.4); MEAN CORPUSCULAR VOLUME 94.7 fl (80.0-94.0); PLATELET COUNT 96 10^3/uL (140-440); RDW COEFFICIENT OF VARIATION 14.6 % (11.6-14.8); RED BLOOD COUNT 3.38 10^6/ul (4.70-6.10); WHITE BLOOD COUNT 6.74 K/ul (4.2-10.2)
[2022-05-02 05:36] LABS: ABG O2 HGB 94.8 % (95-100); ABG PH 7.34 (7.35-7.45); BEecf 5.5 (-2.0-3.0); COHb 1.8 (0.5-1.5); HCO3 31.3 (21-28); MetHb 0.7 (0-1.5); TCO2 33.1 (19-24); sO2 93.5 % (94-98); tHb 10.7 g/dl (11.7-17.4)
[2022-05-02 05:47] LABS: ALANINE AMINOTRANSFERASE 32.7 U/L (0-50); ALBUMIN 3.33 g/dL (3.5-5.0); ASPARTATE AMINO TRANSFERASE 40.7 U/L (17-59); BILIRUBIN,TOTAL 0.45 mg/dL (0.2-1.3); CALCIUM 8.18 mg/dL (8.4-10.2); CARBON DIOXIDE 28.3 mmol/L (22-30.0); CHLORIDE 97.3 mmol/L (98-107); CREATININE 2.57 mg/dL (0.60-1.10); GLUCOSE 149.9 mg/dL (74-106); POTASSIUM 4.47 mmol/L (3.5-5.1); TOTAL PROTEIN 6.04 g/dL (6.3-8.2)
[2022-05-02 05:52] LABS: ANISOCYTOSIS NOT PRESENT (NOT PRESENT)
[2022-05-02 06:05] LABS: BLOOD UREA NITROGEN 87.6 mg/dL (9-20)
[2022-05-02] MEDS: PROTONIX PO SCH (06:36)
[2022-05-02] MEDS: DOXY-100 100 MG in SODIUM CHLORIDE 100ML 100 ML IV SCH (09:17)
[2022-05-02] MEDS: COREG PO SCH ×2 (13:15→17:13)
[2022-05-02] MEDS: LEXAPRO PO SCH (13:15)
[2022-05-02] MEDS: ASTELIN 0.1% NAS SCH ×2 (13:15→21:37)
[2022-05-02] MEDS: CATAPRES PO SCH ×3 (13:15→21:37)
[2022-05-02] MEDS: ANORO ELLIPTA 62.5-25 MCG INH IH SCH (13:15)
[2022-05-02] MEDS: MIRALAX PO SCH ×2 (13:16→21:38)
[2022-05-02] MEDS: MINOXIDIL PO SCH ×2 (13:16→21:38)
[2022-05-02] MEDS: MUCINEX PO SCH ×2 (13:16→21:38)
[2022-05-02] MEDS: LOVENOX SUBCUT SCH (13:16)
[2022-05-02] MEDS: XANAX PO SCH ×3 (13:17→21:39)
[2022-05-02] MEDS: ZANAFLEX PO SCH ×2 (13:17→21:39)
[2022-05-02] MEDS ORDERED: MAXIPIME 2 GM/50 ML D5W 2 GM/50 ML BAG IV SCH (21:00)
[2022-05-02] MEDS: ASPIRIN EC PO SCH (21:37)
[2022-05-02] MEDS: HYTRIN PO SCH (21:38)
[2022-05-02] MEDS: FLOMAX PO SCH (21:38)
[2022-05-03] MEDS: SOLU-CORTEF 250 MG IVP SCH ×2 (00:07→05:39)
[2022-05-03] MEDS: MORPHINE 2 MG/ML SYRINGE IVP PRN ×3 (02:37→07:54)
[2022-05-03] MEDS: ALBUTEROL 0.083% NEB NEB SCH (04:55)
[2022-05-03] MEDS: PULMICORT 0.5 MG/2 ML NEB SCH (04:55)
[2022-05-03 04:58] LABS: ABG O2 HGB 93.5 % (95-100); BEecf 0.3 (-2.0-3.0); COHb 1.9 (0.5-1.5); HCO3 27.4 (21-28); MetHb 1.1 (0-1.5); TCO2 29.3 (19-24); sO2 94.2 % (94-98); tHb 17.9 g/dl (11.7-17.4)
[2022-05-03 05:00] LABS: ABG PH 7.26 (7.35-7.45)
[2022-05-03 05:53] VITALS: BP 162/32; TEMP 97.2
[2022-05-03 05:53] LABS: HEMATOCRIT 33.3 % (42.0-52.0); HEMOGLOBIN 10.6 g/dl (14.0-18.0); IMMATURE GRANULOCYTE % (AUTO) 0.7 % (0.0-5.0); LYMPHOCYTES # (AUTO) 0.2 K/uL (0.60-3.4); LYMPHOCYTES % (AUTO) 4.3 (10.0-50.0); MEAN CORPUSCULAR HEMOGLOBIN 30.5 pg (27.0-31.0); MEAN CORPUSCULAR HGB CONC 31.8 (31.8-35.4); MONOCYTES # (AUTO) 0.3 K/uL (0.4-2.0); MONOCYTES % (AUTO) 5.9 (0-10); NEUTROPHILS % (AUTO) 89.1 % (42.2-75.2); PLATELET COUNT 96 10^3/uL (140-440); RDW COEFFICIENT OF VARIATION 14.7 % (11.6-14.8); RED BLOOD COUNT 3.47 10^6/ul (4.70-6.10); WHITE BLOOD COUNT 5.63 K/ul (4.2-10.2)
[2022-05-03 06:10] LABS: ALANINE AMINOTRANSFERASE 37.8 U/L (0-50); ALBUMIN 3.54 g/dL (3.5-5.0); ALKALINE PHOSPHATASE 43.3 U/L (56-119); ASPARTATE AMINO TRANSFERASE 43.6 U/L (17-59); BILIRUBIN,TOTAL 0.64 mg/dL (0.2-1.3); CALCIUM 8.31 mg/dL (8.4-10.2); CHLORIDE 101.2 mmol/L (98-107); CREATININE 2.92 mg/dL (0.60-1.10); GLUCOSE 128.8 mg/dL (74-106); POTASSIUM 4.75 mmol/L (3.5-5.1); TOTAL PROTEIN 6.38 g/dL (6.3-8.2)
[2022-05-03 06:23] LABS: BLOOD UREA NITROGEN 104.3 mg/dL (9-20)
[2022-05-03] MEDS: PROTONIX PO SCH (06:55)
[2022-05-03] MEDS ORDERED: ATIVAN IVP PRN ×2 (08:33→10:16)
[2022-05-03] MEDS ORDERED: ZOFRAN 4 MG/2 ML IVP PRN (08:34)
[2022-05-03] MEDS ORDERED: MORPHINE 2 MG/ML SYRINGE IVP PRN (08:35)
[2022-05-03] MEDS ORDERED: SODIUM CHLORIDE 1,000 ML IV SCH (08:38)
[2022-05-03] MEDS ORDERED: TRANSDERM-SCOP 1.5 MG PATCH TD SCH (09:00)
[2022-05-03] MEDS: MORPHINE 4 MG/ML SYRINGE IVP PRN ×2 (09:07→11:00)
--- NOTE | 2022-05-03 09:49 | PCM.PROG ---
Attending Provider: ATTENDING PROVIDER: Dr. HAILEY SCHULTE MD This patient is seen with Debbie Garcia, Nurse Practitioner. DATE OF SERVICE: 05/03/22 SUBJECTIVE: This 81 year old /WHITE M was hospitalized 04/28/22. The patient is alert, still says he wants comfort care only, does not want any more medications, no more sticks. He would like to be taken off Bipap. He would like to stay comfortable and be with family. REVIEW OF SYSTEMS: CONSTITUTIONAL: Weakness. No night sweats. No fatigue, malaise, lethargy. No fever or chills. HEENT: Eyes: No visual changes. No eye pain. No eye discharge. ENT: No runny nose. No epistaxis. No sinus pain. No odynophagia. No congestion. RESPIRATORY: Respiratory failure. Shortness of breath. CARDIOVASCULAR: No angina symptoms. No CHF symptoms. No atypical chest pain for CAD. No palpitations. No orthopnea.. GASTROINTESTINAL: No abdominal pain. No nausea or vomiting. No diarrhea or constipation. No hematemesis. No hematochezia. GENITOURINARY: No urgency. No frequency. No dysuria. No hematuria. No obstructive symptoms. No discharge. No pain. No significant abnormal bleeding. MUSCULOSKELETAL: No musculoskeletal pain; no joint swelling. NEUROLOGICAL: Awake, alert, oriented to time, place and person. No headache. No neck pain. No syncope. No seizures. No dizziness. PSYCHIATRIC: Not anxious. No depression. No suicidal thoughts. No homicidal thoughts. SKIN: No rash. No lesions. No wounds. ENDOCRINE: No unexplained weight loss. No weight gain. HEMATOLOGIC/LYMPHATIC: No anemia. No purpura. No petechiae. No prolonged or ex cessive bleeding. No palpable lymph nodes. PHYSICAL EXAMINATION: GENERAL: The patient is awake, alert and oriented, lying/sitting in bed in no distress. VITAL SIGNS: Temperature 97.2 F, Pulse 91, Respiratory Rate 18, BP 162/32, Pulse Ox 95% HEENT: Head normocephalic, atraumatic. Eyes: Extraocular muscles are intact. Pupils are equal, round and reactive to light and accommodation. Ears: No lesions. Nose appeared normal. Throat: No exudate or erythema. NECK: Supple. No JVD, no carotid bruit. No lymphadenopathy or thyromegaly. LUNGS: Severely diminished breath sounds. Clear to auscultation. Percussion note normal. Chest symmetrical. HEART: S1, S2, no S3. No murmurs. No cyanosis or clubbing. No ascites. Pulses: Dorsalis pedis and posterior tibial pulses +1 to +2 both sides. ABDOMEN: Soft. Non-tender. Bowel sounds active. No CVA tenderness. No mass felt. EXTREMITIES: Trace pedal edema. Full range of motion of all extremities, equal. NEUROLOGIC: No focal deficit. Cranial nerves II through XII are grossly intact. No headache. No double vision. SKIN: Not dry. Intact. Turgor-normal. LYMPHATIC: No palpable lymph nodes/no lymphedema. MUSCULOSKELETAL: Normal joints with no swelling. Muscle tone is normal. LAB REVIEW: 05/03/22 05:30 05/03/22 05:30 05/03/22 05:30: Sodium 138.0, Potassium 4.75, Chloride 101.2, Carbon Dioxide 26.0, Anion Gap 15.55, BUN 104.3 H*, Creatinine 2.92 H, Estimated GFR (MDRD) 21.00, BUN/Creatinine Ratio 35.71, Glucose 128.8 H, Calcium 8.31 L, Total Bilirubin 0.64, AST 43.6, ALT 37.8, Alkaline Phosphatase 43.3 L, Total Protein 6.38, Albumin 3.54, Globulin 2.84, Albumin/Globulin Ratio 1.24 05/03/22 05:30: WBC 5.63, RBC 3.47 L, Hgb 10.6 L, Hct 33.3 L, MCV 96.0 H, MCH 30.5, MCHC 31.8, RDW Coeff of Bhaskar 14.7, Plt Count 96 L, Immature Gran % (Auto) 0.7, Neut % (Auto) 89.1 H, Lymph % (Auto) 4.3 L, Wells % (Auto) 5.9, Eos % (Auto) 0.0, Baso % (Auto) 0.0, Neut # (Auto) 5.0, Lymph # (Auto) 0.2 L, Wells # (Auto) 0.3 L, Eos # (Auto) 0.0, Baso # (Auto) 0.0, Immature Gran # (Auto) 0.0 05/03/22 04:50: Puncture Site Rrad, Base Excess 0.3, O2 Saturation 94.2, ABG pH 7.26 L*, ABG pCO2 61.0 H, ABG pO2 82.0 L, ABG HCO3 27.4, ABG Total CO2 29.3 H, Albino Test +, Hemoglobin 1.1, Oxyhemoglobin 93.5 L, Carboxyhemoglobin 1.9 H, Total Hemoglobin 17.9 H, O2 Delivery Device Bipap, FiO2 % 60.0 ASSESSMENT: Please see below. 1. Bilateral pneumonia. 2. Acute on chronic respiratory failure. 3. Acute renal failure. 4. Hypertension. PLAN: 1. Continue with palliative care. 2. The patient and family all in agreement. 3. Discontinue lab draws. 4. Stop all p.o. medication. 5. Zofran 4 mg IV q.4hr. 6. Scopolamine patch. 7. Zofran 4 mg IV q.4hr. 8. Morphine 3 to 4 mg q.2hr. 9. Ativan 1 mg IV q.4hr p.r.n. 10. Discontinue BIPAP; may use nasal cannula if the patient tolerates. 11. The patient and family are all in agreement with the above plan. Plan and coordination of the patient's care discussed in the presence of Dramatic Teacher and nurse. CONDITION: Critical TIME SPENT: 35 MINUTES SCRIBED BY: Valentin TURCIOS scribed while in presence of service performed by Debbie Garcia APRN on 05/03/22 ([id number])
--- NOTE | 2022-05-03 11:30 | PCM.PROG ---
Date Seen by Provider: 05/03/22 Time Seen by Provider: 11:28 Subjective: dx. pt Objective: Vitals: T=97.2 F, P=91, R=18, HV=415/32, SPO2=77 HEENT: []no carotid pulse, pupils fixed and dilated Neck: [] Lungs: [] no respirations CVS: []no heart tones Abdomen: [] Extremities: []cool and pulseless Neurological: [] Skin: [] Lab/Tests/Diagnostic Imaging: [] Plan: pt pronounced , time recorded on nurses chart.
[2022-05-03] MEDS: COREG PO SCH (12:31)
--- NOTE | 2022-05-03 14:21 | PN ---
DATE OF SERVICE: 05/01/22 SUBJECTIVE: The patient was examined today. The patient looks somewhat better than yesterday. He is on BIPAP. He is hungry according to him for lunch. Vitals are stable. The patient's condition is still critical. TIME SPENT: More than 35 minutes. Plan and coordination of the patient's care discussed in the presence of nurse. NITIN
--- NOTE | 2022-05-03 15:04 | PN ---
DATE OF SERVICE: 05/02/22 SUBJECTIVE: 81-year-old white male hospitalized with pneumonia and acute respiratory failure. The patient's condition has improved some. He is alert but still condition is critical. He has shortness of breath on minimal exertion. The patient doesn't talk, mostly sleepy. The daughter is in the room, wants comfort measures. He is on Morphine Sulfate 2 mg every 2 hours for pain because he was in pain and he wanted relief from it. REVIEW OF SYSTEMS: CONSTITUTIONAL: He is mostly sleepy. No night sweats. No fatigue, malaise, lethargy. No fever or chills. HEENT: Eyes: No visual changes. No eye pain. No eye discharge. ENT: No runny nose. No epistaxis. No sinus pain. No sore throat. No odynophagia. No congestion. RESPIRATORY: No cough, no congestion. No hemoptysis. Shortness of breath on minimal exertion. CARDIOVASCULAR: No angina symptoms. No CHF symptoms. No atypical chest pain for CAD. No palpitations. No PND. No orthopnea. GASTROINTESTINAL: No abdominal pain. No nausea or vomiting. No diarrhea or constipation. No hematemesis. No hematochezia. GENITOURINARY: No urgency. No frequency. No dysuria. No hematuria. No obstructive symptoms. No discharge. No pain. No significant abnormal bleeding. MUSCULOSKELETAL: No musculoskeletal pain; no joint swelling. NEUROLOGICAL: No headache. No neck pain. No syncope. No seizures. No dizziness. PSYCHIATRIC: Not anxious. No depression. No suicidal thoughts. No homicidal thoughts. SKIN: No rash. No lesions. No wounds. ENDOCRINE: No unexplained weight loss. No weight gain. HEMATOLOGIC/LYMPHATIC: No anemia. No purpura. No petechiae. No prolonged or excessive bleeding. No palpable lymph nodes. PHYSICAL EXAMINATION: GENERAL: The patient is sleepy, lying/sitting in bed in no distress. VITAL SIGNS: Temperature 96.9, pulse 82, respiratory rate 20, BP 137/81, pulse ox 92% on 60% BIPAP. HEENT: Face is less swollen. Head normocephalic, atraumatic. Eyes: Extraocular muscles are intact. Pupils are equal, round and reactive to light and accommodation. Ears: No lesions. Nose appeared normal. Throat: No exudate or erythema. NECK: Supple. No JVD, no carotid bruit. No lymphadenopathy or thyromegaly. LUNGS: Poor air entry. No wheeze. Clear to auscultation. Percussion note normal. Chest symmetrical. HEART: S1, S2, no S3. No murmurs. No cyanosis or clubbing. No ascites. Pulses: Dorsalis pedis and posterior tibial pulses +1 to +2 bilaterally. ABDOMEN: Soft. Nontender. Bowel sounds active. No CVA tenderness. No mass felt. EXTREMITIES: Trace edema in all his extremities. Full range of motion of all extremities, equal. NEUROLOGIC: No focal deficit. Cranial nerves II through XII are grossly intact. No headache. No double vision. SKIN: Not dry. Intact. Turgor - normal. LYMPHATIC: No palpable lymph nodes/no lymphedema. MUSCULOSKELETAL: Normal joints with no swelling. Muscle tone is normal. LABS: ABG - p02 73, pc02 58, pH 7.34 with 93% saturation on BIPAP 60%. PLAN: 1. Continue BIPAP 2. Continue antibiotics 3. Discontinue Doxycycline 4. Continue steroids 5. DNR - the patient is on comfort measures. CONDITION: Critical. PROGNOSIS: Poor. TIME SPENT: More than 35 minutes. Plan and coordination of the patient's care discussed in the presence of nurse. NITIN
--- NOTE | 2022-05-04 14:15 | PN ---
DATE OF SERVICE: 05/03/22 SUBJECTIVE: The patient was seen and examined with the nurse practitioner in the morning. The patient's condition is deteriorating. Renal function has deteriorated. The patient is comfort care. The family is in the room. ADDENDUM: The patient this afternoon. Cause of - acute respiratory failure, bilateral pneumonia with severe chronic lung disease. TIME SPENT: More than 35 minutes. Plan and coordination of the patient's care discussed in the presence of nurse. NITIN
== END 2022-05-03 13:20 | disposition expired | DRG 190 ==
LOC: ED 06:02 → MEDSURG A 10:25
PROVIDERS: ADMIT Internal Medicine; ATTEND Internal Medicine
DX: R06.02 Shortness of breath; J96.20 Acute and chronic respiratory failure, unspecified whether with hypoxia or hypercapnia; R73.9 Hyperglycemia, unspecified; D75.1 Secondary polycythemia; I10 Essential (primary) hypertension; Z66 Do not resuscitate; J44.0 Chronic obstructive pulmonary disease with (acute) lower respiratory infection; E87.70 Fluid overload, unspecified; N18.32 Chronic kidney disease, stage 3b; N40.0 Benign prostatic hyperplasia without lower urinary tract symptoms; F41.9 Anxiety disorder, unspecified; N17.9 Acute kidney failure, unspecified; G47.33 Obstructive sleep apnea (adult) (pediatric); I25.810 Atherosclerosis of coronary artery bypass graft(s) without angina pectoris; E78.5 Hyperlipidemia, unspecified; Z20.822 Contact with and (suspected) exposure to COVID-19; Z79.899 Other long term (current) drug therapy